=== PATIENT | female | born 1975 ===

== ENCOUNTER → 2020-01-06 09:37 | Outpatient (BNVA) | payer MEDICAID, SELFPAY | PROVIDERS: PCP Nurse Practitioner Family; Referring Provider Nurse Practitioner Family; Visit Provider Dietitian, Registered | DX: Z76.89 Persons encountering health services in other specified circumstances (principal) ==

== ENCOUNTER → 2020-04-25 07:44 | Outpatient (BNVA) | payer MEDICAID, SELFPAY | PROVIDERS: PCP Nurse Practitioner Family; Visit Provider Dietitian, Registered ==

== ENCOUNTER → 2020-10-19 08:19 | Outpatient (BNVA) | payer MEDICAID, SELFPAY | PROVIDERS: PCP Nurse Practitioner Family; Visit Provider Dietitian, Registered | DX: E66.9 Obesity, unspecified (principal); Z68.25 Body mass index [BMI] 25.0-25.9, adult | CPT/HCPCS: 97803 ==

== ENCOUNTER → 2020-12-13 14:38 | Outpatient (BNVA) | payer MEDICAID, SELFPAY | PROVIDERS: PCP Nurse Practitioner Family; Visit Provider Physician Assistant Surgical | DX: Z98.84 Bariatric surgery status (principal) | CPT/HCPCS: 99212 ==

== ENCOUNTER 2021-03-22 09:09 | Outpatient (REF) | payer MEDICAID, SELFPAY ==
[2021-03-22 10:15] LABS: COVID-19 Test Positive (Negative); IDNOW Serial# 16C4AD1C
== END 2021-03-22 09:10 | disposition home or self-care (01) ==
LOC: HO.LAB 09:09
PROVIDERS: Visit Provider Internal Medicine
DX: Z20.822 Contact with and (suspected) exposure to COVID-19 (principal)
CPT/HCPCS: 36415; 87635; C9803

== ENCOUNTER → 2021-10-31 15:06 | Outpatient (BNV) | payer MEDICAID, SELFPAY | PROVIDERS: PCP Nurse Practitioner; Visit Provider Internal Medicine | DX: D50.9 Iron deficiency anemia, unspecified (principal); N92.0 Excessive and frequent menstruation with regular cycle; Z90.3 Acquired absence of stomach [part of]; Z98.84 Bariatric surgery status | CPT/HCPCS: 99204; 99213; 99214 ==

== ENCOUNTER 2021-11-12 08:04 | Outpatient (REF) | payer MEDICAID, SELFPAY | END 2021-11-12 08:05 | disposition home or self-care (01) | LOC: HO.MDS 08:04 | PROVIDERS: PCP Nurse Practitioner; Visit Provider Internal Medicine | DX: D50.9 Iron deficiency anemia, unspecified (principal) | CPT/HCPCS: 96365; J1756 ==

== ENCOUNTER 2021-11-20 14:14 | Outpatient (REF) | payer MEDICAID, SELFPAY | END 2021-11-20 14:15 | disposition home or self-care (01) | LOC: HO.MDS 14:14 | PROVIDERS: Visit Provider Internal Medicine | DX: D50.9 Iron deficiency anemia, unspecified (principal) | CPT/HCPCS: 96365; J1756 ==

== ENCOUNTER 2021-11-27 14:29 | Outpatient (REF) | payer MEDICAID, SELFPAY | END 2021-11-27 14:30 | disposition home or self-care (01) | LOC: HO.MDS 14:29 | PROVIDERS: Visit Provider Internal Medicine | DX: D50.9 Iron deficiency anemia, unspecified (principal) | CPT/HCPCS: 96365; J1756 ==

== ENCOUNTER 2021-12-04 13:07 | Outpatient (REF) | payer MEDICAID, SELFPAY | END 2021-12-04 13:08 | disposition home or self-care (01) | LOC: HO.MDS 13:07 | PROVIDERS: Visit Provider Internal Medicine | DX: D50.9 Iron deficiency anemia, unspecified (principal) | CPT/HCPCS: 96365; J1756 ==

== ENCOUNTER 2021-12-17 13:05 | Outpatient (REF) | payer MEDICAID, SELFPAY | END 2021-12-17 13:06 | disposition home or self-care (01) | LOC: HO.MDS 13:05 | PROVIDERS: Visit Provider Internal Medicine | DX: D50.9 Iron deficiency anemia, unspecified (principal) | CPT/HCPCS: 96365; J1756 ==

== ENCOUNTER → 2021-12-18 13:01 | Outpatient (BNVA) | payer MEDICAID, SELFPAY | PROVIDERS: PCP Nurse Practitioner; Referring Provider Nurse Practitioner; Visit Provider Internal Medicine | DX: R07.2 Precordial pain (principal); Z82.49 Family history of ischemic heart disease and other diseases of the circulatory system | CPT/HCPCS: 93005; 99202 ==

== ENCOUNTER → 2022-01-29 12:58 | Outpatient (REF) | payer MEDICAID, SELFPAY ==
--- NOTE | 2022-01-29 13:05 | CA_ITS ---
Transthoracic Echocardiogram Patient (Last, First, Middle): Corina Abrams, Gender: Female Date of : 1975 Age: 46 Procedure Date: 01/29/2022 Procedure Type: Transthoracic Echocardiogram Location: OP Height: 157.48 cm Weight: 65.77 kg BSA: 1.67 m2 Heart Rate: bpm BP: 95 / 70 mmHg Jumpbasting Canvas Baster: TO Referring MD: Weston Mcdaniels MD Public Space Attendant: Gerardo Adame MD Symptoms: R07.2 - Precordial pain Study Quality: Adequate ECG Rhythm: Sinus Conclusions: - Essentially normal study Findings Left Ventricle Normal left ventricular size, thickness, and systolic function. The visually estimated ejection fraction is between 55-60%. Diastolic function is normal for age. Right Ventricle Normal right ventricular cavity size and systolic function. Atria Both atria are normal in size. Interatrial shunt cannot be excluded. Aortic Valve Normal aortic valve structure and function. There is no aortic valve stenosis. There is no aortic valve regurgitation. Mitral Valve Normal mitral valve structure and function. There is trace mitral valve regurgitation. There is no mitral valve stenosis. Pulmonic Valve The pulmonic valve is likely normal. There is trace pulmonic valve regurgitation. Tricuspid Valve Normal tricuspid valve structure. There is trace tricuspid valve regurgitation. The right ventricular systolic pressure is normal. The right ventricular systolic pressure is 16 mmHg. Normal right atrial pressure. There is no evidence of pulmonary hypertension. Great Vessels All visible segments of the aorta are normal in size. The pulmonary artery was not well visualized. Venous The inferior vena cava is normal in size and collapses greater than 50% with inspiration. Pericardium/Pleural There is no evidence of pericardial effusion. Prior Study Comparison No significant change compared to prior study dated: 01/15/2017. Measurements 2D Linear Measurements IVSd: 0.78 0.6-0.9/0.6-1.0 cm LVIDd: 5.00 3.9-5.3/4.2-5.9 cm LVIDd Index: 2.99 2.4-3.2/2.2-3.1 cm/m2 LVIDs: 3.14 2.0-3.6 cm LVPWd: 0.71 0.7-1.1 cm LA Diam: 3.00 2.7-3.8/3.0-4.0 cm LAIDs Index: 1.80 1.5-2.3 cm/m2 LV Mass: 154.69 67-162/88-224 g LV Mass Index: 92.63 43-95/49-115 g/m2 LVOT Diam: 2.00 3.0+(-)1.3 cm 2D Systolic Function EF 4C: 56.90 >55% EF 2C: 58.00 >55% Mitral Valve MV Pk E: 0.48 MV PK A: 0.45 MV Decel Time: 201.00 E/A: 1.10 E'Lateral: 12.70 E'Medial: 9.36 E/E' Med: 5.10 E/E' Lat: 3.80 PHT: 59.00 MVA PHT: 3.73 Decel Power: 2.39 Aortic Valve AoV Pk Quang: 1.19 AoV Mn Quang: 0.91 AoV VTI: 0.25 AoV Pk Grad: 6.00 Aov Mn Grad: 4.00 LEXIE Cont.VTI: 2.11 LVOT LVOT Pk Quang: 0.89 LVOT Mn Quang: 0.58 LVOT VTI: 0.17 LVOT Pk Grad: 3.00 LVOT Mn Grad: 2.00 LVOT Diam: 2.00 LVOT Area: 3.14 Diastolic Function MV Pk E: 0.48 MV Pk A: 0.45 E/A: 1.10 E'Medial: 9.36 E/E' Med: 5.10 E' Laterial: 12.70 E/E' Lat: 3.80 Right Ventricle TAPSE (mm): 23.80 TVS' Quang: 11.10 Tricuspid Valve TR Pk Quang: 1.81 TR Pk Grad: 13.00 RA Press: 3.00 RVSP: 16.00 Great Vessels Aorta Sinus of Valsalva: 3.13 2.0-3.5 cm Ao Asc: 2.80 2.1-3.4 cm Updated in Other Vendor System with Status of Final Gerardo Adame MD electronically signed on 01/30/2022 3:47:49 PM with status of Final
== END ==
LOC: HO.CARD 12:58
PROVIDERS: Visit Provider Internal Medicine
DX: R07.2 Precordial pain (principal)
CPT/HCPCS: 93306

== ENCOUNTER → 2022-02-04 10:37 | Outpatient (REF) | payer MEDICAID, SELFPAY ==
--- NOTE | 2022-02-04 10:42 | CA_ITS ---
Acquisition Time: 2022-02-04 10:40:19 Total Exercise Time: 00:09:47 Test Indications: Dyspnea Medications: GABAPENTIN IRON Protocol: [place] Max HR: 169 BPM 97% of Pred: 174 BPM Max BP: 124/070 mmHG Max Work Load: 11.3 METS Exercise stress test with exercise 9 min 47 sec of [place] protocol, achieving 97% MPHR, without anginal symptoms, without arrythma, with normotensive response to exercise, without EKG changes meeting criteria for ischemia at peak, with T wave inversions inferior, V4-V6 in recovery. Test reviewed with Dr Adame. Referred By: Weston Mcdaniels Overread By: DICKSON RUTLEDGE
== END ==
LOC: HO.CARD 10:37
PROVIDERS: Visit Provider Internal Medicine
DX: R07.2 Precordial pain (principal)
CPT/HCPCS: 93017

== ENCOUNTER → 2022-04-25 13:34 | Outpatient (BNVA) | payer MEDICAID, SELFPAY | PROVIDERS: PCP Nurse Practitioner; Referring Provider Nurse Practitioner; Visit Provider Nurse Practitioner Family | DX: R07.2 Precordial pain (principal); R00.2 Palpitations; Z82.49 Family history of ischemic heart disease and other diseases of the circulatory system | CPT/HCPCS: 99212 ==

== ENCOUNTER → 2022-05-21 11:07 | Outpatient (REF) | payer MEDICAID, SELFPAY ==
--- NOTE | 2022-05-21 11:09 | HM_ITS ---
conclusion: 1. Patient was monitored for total period of 2 days 2. Baseline was normal sinus rhythm with average heart rate of 88 beats per minute 3. No significant pauses or bradycardia noted 4. Very rare PACs noted 5. No patient reported symptoms MTDD
--- NOTE | 2022-05-21 11:09 | CA_ITS ---
Acquisition Time: 2022-05-21 11:22:28 Total Exercise Time: 00:09:35 Test Indications: CP Medications: SEE CHART Protocol: [place] Max HR: 176 BPM 101% of Pred: 173 BPM Max BP: 110/070 mmHG Max Work Load: 11.0 METS Exercise stress ECHO using [place] protocol, total of 9 min 35 sec. METS 11.00 and TAPHR up to. 101%. Patient tolerated well, denies any SOB or CP. EKG witthout any arrhythmias and ischemic changes. ECHO images done at peak exercise, definity IV contrast used. Hypotensive response to exercise, asymptomatic. Test reviewed with Dr. Adame. Referred By: Evie Johnston Overread By: Erika Hicks NP
== END ==
LOC: HO.CARD 11:07
PROVIDERS: PCP Nurse Practitioner; Visit Provider Nurse Practitioner Family
DX: R07.2 Precordial pain (principal); R00.2 Palpitations
CPT/HCPCS: 93242; 93350; Q9957

== ENCOUNTER 2022-12-10 12:43 | Outpatient (REF) | payer OTHER, SELFPAY ==
[2022-12-10 16:24] LABS: Hematocrit 42.8 % (37.0-47.0); Hemoglobin 14.1 g/dl (12.0-16.0); Mean Corpuscular HGB Conc 32.9 g/dl (31.0-35.0); Mean Corpuscular Volume 94.1 fL (80.0-98.0); Mean Platelet Volume 12.1 fL (9.4-12.3); Platelet Count 253 X10*3/uL (160-400); Red Blood Count 4.55 X10*6/uL (4.20-5.50); Red Cell Distribution Width 13.2 % (11.0-16.0); White Blood Count 5.7 X10*3/uL (4.8-10.8)
[2022-12-10 17:10] LABS: Ferritin 16 ng/mL (10-250)
[2022-12-10 17:14] LABS: HCG Quantitative < 2 mIU/mL; TSH reflex Free T4 1.34 uIU/mL (0.32-4.0)
== END 2022-12-10 12:44 | disposition home or self-care (01) ==
LOC: HO.HHCL 12:43
PROVIDERS: Internal Medicine; Visit Provider Registered Nurse
DX: E61.1 Iron deficiency (principal); N93.9 Abnormal uterine and vaginal bleeding, unspecified
CPT/HCPCS: 36415; 82728; 84443; 84702; 85027

== ENCOUNTER 2023-01-16 15:30 | Outpatient (AMB) | payer MEDICAID, SELFPAY ==
--- NOTE | 2023-01-16 15:38 | A.OFFVIS_ITS ---
Intake VS Expanded 01/16/23 15:48 Height 5 ft 3 in Weight 155 lb BMI 27.5 Intake Visit Reasons: VIDEO POM DOS LSG 12/2017 Allergies No Known Allergies [No Known Allergies*] Allergy (Verified 04/25/22 13:36) Medication List - Last Reconciled 01/16/23 by Violet Oconnor PA-C albuterol sulfate 1 vial inhalation Q4H PRN gabapentin 400 mg PO BEDTIME HPI HPI Comments History of Present Illness Details Pt is now 5 years s/p LSG. [employer] weight of , last appt Nov 2020 at 3 years post op. She stats she has gained 20 lbs and stopped exericise. Now has epigastric after eating. Wakes up at 6 am 7am - coffee 1 cup with 5 equal and whol e milk 10:30 am -chicken evans wrap or half tur ramos sandwich a with multigrain bread - over 5 minutes Water or OJ or cranberry juice 3pm - not healthy snacks 6pm - chicken and rice, vegetables After dinner - eats cereal before bed Post op complications: none FILIBERTO: resolved DM never HTN:never Hyperlipidemia: never GERD: 2--3, when eats too fast Satisfaction with present condition - Not satisfied [facility] Medical History (Updated 01/16/23 @ 15:48 by Violet Oconnor PA-C) Arthritis History of asthma Surgical History (Updated 01/16/23 @ 15:48 by Violet Oconnor PA-C) H/O abdominoplasty Family History Mother History of hypertension Arthritis Glaucoma Father Heart problem History of hypertension Brother Heart problem History of hypertension Sister History of hypertension Brother No problems noted. Brother No problems noted. Brother No problems noted. Brother No problems noted. Sister No problems noted. Sister No problems noted. Sister No problems noted. Social History Household Members: Spouse and Children Housing: House Alcohol intake: current Alcohol intake frequency: holidays/special occasions only Patient Tobacco Use Status: Never used Tobacco service: No Current occupational status: employed Physical Exam GI Inspection: Yes incision (well helaed) Palpation (GI): no hernias and no masses Assessment & Plan Assessment & Plan (1) S/P laparoscopic sleeve gastrectomy: Code(s): Z98.84 - Bariatric surgery status Plan: 5 years post op. Has gained about 10 lbs and knows that it is is becasue of her stopping exercise and eating candies and eating too fast. 10:30 - stop juices, half sandwich or wrap in 20 -30 minutes 3pm -apple with 2 tbl PB, or a sting cheese or a hb egg 7pm- 3 oz vegetables and 3-4 protien, 1/4 c carbs Restart exercise Gets post op labs done Follow up in March 2023 with me I spent 30 minutes in total speaking with the patient via video conference counseling , reviewing records and charting in patients chart. . (2) Epigastric pain: Code(s): R10.13 - Epigastric pain Orders: Orders IRON PROFILE Today R10.13 - Epigastric pain, Z98.84 - Bariatric surgery status Vitamin B12 and Folate Today R10.13 - Epigastric pain, Z98.84 - Bariatric surgery status Comprehensive Met. Panel Today R10.13 - Epigastric pain, Z98.84 - Bariatric surgery status Vitamin A Today R10.13 - Epigastric pain, Z98.84 - Bariatric surgery status Vitamin D 25-OH Total Today R10.13 - Epigastric pain, Z98.84 - Bariatric surgery status Hemoglobin A1c Today R10.13 - Epigastric pain, Z98.84 - Bariatric surgery status Insulin Today R10.13 - Epigastric pain, Z98.84 - Bariatric surgery status Lipid Panel Today R10.13 - Epigastric pain, Z98.84 - Bariatric surgery status Complete Blood Count Auto Diff Today R10.13 - Epigastric pain, Z98.84 - Bariatric surgery status Zinc Today R10.13 - Epigastric pain, Z98.84 - Bariatric surgery status Vitamin B1 Today R10.13 - Epigastric pain, Z98.84 - Bariatric surgery status C Reactive Protein Today R10.13 - Epigastric pain, Z98.84 - Bariatric surgery status Ferritin Today R10.13 - Epigastric pain, Z98.84 - Bariatric surgery status PTHI Today R10.13 - Epigastric pain, Z98.84 - Bariatric surgery status TSH reflex Free T4 Today R10.13 - Epigastric pain, Z98.84 - Bariatric surgery status Coding Level of Care Code Tele Est Pt Level 4 (75698) Diagnoses S/P laparoscopic sleeve gastrectomy Z98.84 Epigastric pain R10.13
[2023-01-16 15:48] VITALS: BMI 27.5
== END 2023-01-16 16:01 | disposition home or self-care (01) ==
LOC: HO.HBS 15:46
PROVIDERS: PCP Registered Nurse; Visit Provider Physician Assistant
DX: E66.9 Obesity, unspecified (principal); Z68.27 Body mass index [BMI] 27.0-27.9, adult; Z90.3 Acquired absence of stomach [part of]; Z98.84 Bariatric surgery status
CPT/HCPCS: 99214

== ENCOUNTER → 2023-01-16 15:30 | Outpatient (BNVA) | payer MEDICAID, SELFPAY | PROVIDERS: PCP Registered Nurse; Visit Provider Physician Assistant | DX: R10.13 Epigastric pain (principal); Z98.84 Bariatric surgery status | CPT/HCPCS: 99212 ==

== ENCOUNTER 2023-02-28 16:04 | Outpatient (REF) | payer MEDICAID, SELFPAY ==
--- NOTE | ~2023-02-28 | XR_ITS ---
EXAMINATION: XR HIP, RIGHT CLINICAL INFORMATION: Pain COMPARISON: None available. TECHNIQUE: Two views of the right hip. FINDINGS: No fracture. Alignment is anatomic. Hip joint space is maintained. Soft tissues are unremarkable. XR/XR hip RT min 2V IMPRESSION: Normal right hip.
== END 2023-02-28 16:05 | disposition home or self-care (01) ==
LOC: HO.HHCX 16:04
PROVIDERS: Visit Provider Nurse Practitioner
DX: M25.551 Pain in right hip (principal)
CPT/HCPCS: 73502

== ENCOUNTER 2023-04-14 15:00 | Outpatient (AMB) | payer MEDICAID, SELFPAY ==
--- NOTE | 2023-04-14 15:00 | A.OFFVIS_ITS ---
Intake Intake Visit Reasons: TV POM LSG 12/2017 Allergies No Known Allergies [No Known Allergies*] Allergy (Verified 04/25/22 13:36) HPI HPI Comments History of Present Illness Details Pt is now 5 years s/p LSG. She had lapse in care from Nov 2020 until Dec 2022 when she had gained 20 lbs and stopped exercising. She complained of epigastric pain after eating and we started a new meal and exercise regiment. Since out last appt she had not been adhering to the plan we created. She said her symptoms are the same. Wakes at 5am 5:30 coffee with whole milk and 3 equal 7:30 am - 2 boiled eggs over 30 minutes, - has epigastric pain 12pm - 8 oz salad a, banana peppers and dressing,3 deli slices of turkey 5:30pm - 4 oz baked salmon and 8 oz vege tables 8pm - Special K cereal 10 pm bed. Did not start exercise yet Did not get post op labs done [facility] Medical History (Updated 01/16/23 @ 15:48 by Violet Oconnor PA-C) Arthritis History of asthma Surgical History (Updated 01/16/23 @ 15:48 by Violet Oconnor PA-C) H/O abdominoplasty Family History Mother History of hypertension Arthritis Glaucoma Father Heart problem History of hypertension Brother Heart problem History of hypertension Sister History of hypertension Brother No problems noted. Brother No problems noted. Brother No problems noted. Brother No problems noted. Sister No problems noted. Sister No problems noted. Sister No problems noted. Social History Household Members: Spouse and Children Housing: House Alcohol intake: current Alcohol intake frequency: holidays/special occasions only Patient Tobacco Use Status: Never used Tobacco service: No Current occupational status: employed Assessment & Plan Assessment & Plan (1) Epigastric pain: Code(s): R10.13 - Epigastric pain Plan: Persistent epigastric pain - did not make any of the changes we spoke about. No coffee in morning. No juice. 6am - Celebrate 4:1 shake with 8 oz water 12 pm - 2 boiled eggs, 1/4 raw vegetables or fruit 5pm - 4 oz (8 forks) protein , 4 oz (8 forks)vegetables - 8pm- Celbrate 4:1 shake Treadmill at home - start speed 2.8, incline 2-6 (3minutes) - 300 calories, 4 d/week this week and 5d /week. Will get her labs drawn this week. Text me with progress, worsening pain or any questions. Next appt 1 month with me. Patient is not considered stable at this time. I spent 22minutes in total speaking with the patient via video conference counseling , reviewing records and charting in patients chart. . (2) S/P laparoscopic sleeve gastrectomy: Code(s): Z98.84 - Bariatric surgery status Plan see above Coding Level of Care Code Tele Est Pt Level 3 (22976) Diagnoses Epigastric pain R10.13 S/P laparoscopic sleeve gastrectomy Z98.84
== END 2023-04-14 15:22 | disposition home or self-care (01) ==
LOC: HO.HBS 15:21
PROVIDERS: PCP Registered Nurse; Visit Provider Physician Assistant
DX: R10.13 Epigastric pain (principal); Z90.3 Acquired absence of stomach [part of]; Z98.84 Bariatric surgery status
CPT/HCPCS: 99213

== ENCOUNTER → 2023-04-14 15:00 | Outpatient (BNVA) | payer MEDICAID, SELFPAY | PROVIDERS: PCP Registered Nurse; Visit Provider Physician Assistant | DX: Z98.84 Bariatric surgery status (principal); R10.13 Epigastric pain ==

== ENCOUNTER 2023-09-12 14:06 | Outpatient (REF) | payer MEDICAID, SELFPAY ==
--- NOTE | ~2023-09-12 | XR_ITS ---
EXAMINATION: XR LUMBOSACRAL SPINE CLINICAL INFORMATION: Chronic low back pain without sciatica. Patient states 2-3 years of low back pain worsening for the last 3-4 months. COMPARISON: 07/06/2014 TECHNIQUE: Three views of the lumbosacral spine. FINDINGS: Dextroscoliosis of the lumbar spine. Postsurgical changes with clips in the left upper quadrant. Small pelvic calcifications are likely vascular. Bones are demineralized. Facet arthritis in the lower lumbar spine. Mild multilevel lumbar spondylosis with loss of disc space height at L3-L4. XR/XR lumbar spine 2-3V IMPRESSION: Mild multilevel lumbar spondylosis with loss of disc space height at L3-L4. This study was presented today October 01, 2023 for interpretation. Stat results provided at this time as requested by referring provider.
== END 2023-09-12 14:07 | disposition home or self-care (01) ==
LOC: HO.HHCX 14:06
PROVIDERS: Visit Provider Student in an Organized Health Care Education/Training Program
DX: M54.50 Low back pain, unspecified (principal); G89.29 Other chronic pain
CPT/HCPCS: 72100

== ENCOUNTER 2023-09-12 14:24 | Outpatient (REF) | payer MEDICAID, SELFPAY ==
[2023-09-12 16:41] LABS: Hemoglobin 13.2 g/dl (12.0-16.0); Mean Corpuscular Volume 90.9 fL (80.0-98.0); Mean Platelet Volume 11.3 fL (9.4-12.3); Platelet Count 244 X10*3/uL (160-400); Red Cell Distribution Width 16.3 % (11.0-16.0); White Blood Count 7.5 X10*3/uL (4.8-10.8)
[2023-09-12 16:50] LABS: Alanine Aminotransferase 13 U/L (0-31); Albumin Level 4.1 g/dL (3.5-5.0); Alkaline Phosphatase 52 U/L (39-117); Anion Gap 11 (12-20); Aspartate Amino Transferase 18 U/L (5-31); Bilirubin Total 0.3 mg/dL (0.0-1.0); Blood Urea Nitrogen 17 mg/dL (9-16); Calcium 9.3 mg/dL (8.4-10.2); Carbon Dioxide 26 mmol/L (22-29); Chloride 106 mmol/L (96-108); Estimated Glomerular Filt Rate > 60; Glucose Random 81 mg/dL (60-115); Potassium 4.1 mmol/L (3.3-5.1); Sodium 139 mmol/L (135-145); Total Protein 7.2 g/dL (6.5-8.0)
[2023-09-12 16:55] LABS: Estimated Average Glucose 97 mg/dL
[2023-09-12 17:09] LABS: TSH reflex Free T4 1.07 uIU/mL (0.32-4.0)
== END 2023-09-12 14:25 | disposition home or self-care (01) ==
LOC: HO.HHCL 14:24
PROVIDERS: Visit Provider Student in an Organized Health Care Education/Training Program
DX: R42 Dizziness and giddiness (principal); M54.50 Low back pain, unspecified; G89.29 Other chronic pain
CPT/HCPCS: 36415; 72100; 80053; 83036; 84443; 85027

== ENCOUNTER 2023-11-11 14:56 | Outpatient (RCR) | payer MEDICAID, SELFPAY ==
--- NOTE | 2023-11-11 16:03 | MHC.PT.EP ---
[facility] [place] Office [place] Office [place] Office [address] Nazanin Cote [address] [phone] F: [phone] F: [phone] F: [phone] F: [phone] Physical Therapy Plan of Care Date of Evaluation: 11/11/23 Date of Surgery: N/A Diagnosis: MD script: chronic low back pain without sciatica, unspecified back pain laterality (RL) PT Diagnosis: lumbar radiculopathy Assessment: pt is a 48 y/o female presenting to physical therapy w/ referring diagnosis of chronic low back pain without sciatica, unspecified back pain laterality. Signs and symptoms are consistent w/ R lumbar radiculopathy. Unsure if it is a true disc issue or more postural as she does have xray (+) for lumbar dextroscoliosis but observation and palpation of spine reveal excessive lumbar lordosis. Impairments include pain, decreased range of motion, decreased strength, impaired functional mobility, impaired postural awareness, and altered ambulation mechanics. pt is a good candidate for skilled PT due to age, potential remediation of impairments, typical disease/condition progression and prognosis, comorbidities, and motivation. pt would benefit from skilled PT intervention to provide a tailored strengthening and stretching exercise program, functional training, gait training, postural re-training, neuromuscular re-education, modalities as needed for pain, equipment safety demonstration. Frequency and Duration: The patient will be seen 2x/wk for 5 wks Short Term Goals: pt will be I w/ HEP to promote self-management of condition. pt will demo proper sitting posture w/ lumbar roll to promote neutral spine w/ seated ADLs. Intermediate Goals: pt will report a statistically significant improvement in self-reported outcome measure, Marlene, to promote return to PLOF. pt will ambulate x1000' w/ <2/10 R radicular symptoms w/ LRAD to promote return to community ambulation (grocery store, appts). Treatment Plan: Modalities to reduce pain, spasms and effusion. Manual therapy to restore motion and function. Therapeutic exercise to improve strength and flexibility. Neuromuscular re-education for posture and balance. Therapeutic activities to return to functional activities of daily living. Electronically signed by: Kailee Rowland PT, DPT Please sign and return to therapist. Thank you for your referral.
--- NOTE | 2023-11-19 14:23 | MHC.PT.DC ---
[facility] [place] Office [place] Office [place] Office [address] Nazanin Cote [address] [phone] F: [phone] F: [phone] F: [phone] F: [phone] Physical Therapy Discharge Report Diagnosis: MD script: chronic low back pain without sciatica, unspecified back pain laterality (RL) PT Diagnosis: lumbar radiculopathy Date of Surgery: N/A Date of Evaluation: 11/11/23 Date of Discharge: 11/19/23 Treatments to Date: 1 Cancellations to Date: 0 No Shows to Date: 2 Discharge Status: Discharge Summary: The patient has no showed two consecutive appointments. Per [facility] Therapy attendance policy she is being discharged for non-compliance. I suspected her symptoms were a combination of excessive lumbar lordosis, scoliosis, and lumbar radiculopathy. We spent time discussing her posture and some strategies to promote neutral spine with daily tasks. Electronically signed by: Kailee Rowland PT, DPT Please sign and return to therapist. Thank you for your referral.
== END 2023-11-19 14:23 | disposition home or self-care (01) ==
LOC: HO.PT 14:56
PROVIDERS: PCP Internal Medicine; Visit Provider Internal Medicine
DX: M54.50 Low back pain, unspecified (principal); G89.29 Other chronic pain
CPT/HCPCS: 97110; 97161

== ENCOUNTER 2023-11-26 11:25 | Outpatient (REF) | payer MEDICAID, SELFPAY | END 2023-11-26 11:26 | disposition home or self-care (01) | LOC: HO.HHCLNP 11:25 | PROVIDERS: Visit Provider Internal Medicine | DX: Z13.89 Encounter for screening for other disorder (principal) ==

== ENCOUNTER 2023-11-27 10:27 | Outpatient (REF) | payer MEDICAID, SELFPAY ==
--- NOTE | ~2023-11-27 | US_ITS ---
EXAMINATION: US ABDOMEN COMPLETE CLINICAL INFORMATION: Right-sided pain. Flank and right lower quadrant pain x6 months. COMPARISON: X-ray abdomen 12/26/2017. Ultrasound abdomen complete with liver elastography 04/17/2017. Ultrasound abdomen complete 01/19/2013. TECHNIQUE: Real-time imaging of the abdominal viscera. FINDINGS: PANCREAS: The pancreas appears unremarkable, without masses or ductal dilatation, with the exception of the tail which is obscured by bowel gas. ABDOMINAL AORTA: Atherosclerotic changes are present in the aorta with plaque. The proximal, mid, and distal segments are normal in caliber. INFERIOR VENA CAVA: Visualized portions are normal. LIVER: The liver is normal in size. The liver contour is normal. There is diffuse increased liver parenchymal echogenicity, consistent with hepatic steatosis. No focal hepatic lesion. There is no intrahepatic biliary duct dilatation seen. GALLBLADDER: Normal. The gallbladder is physiologically distended without evidence of stones, sludge, polyps, wall thickening or pericholecystic fluid. COMMON BILE DUCT: Normal in caliber measuring 0.4 cm in diameter. RIGHT KIDNEY: No hydronephrosis or renal calculi. The kidney measures 9.4 cm in maximum dimension. No renal masses. LEFT KIDNEY: No hydronephrosis. No renal calculi or focal parenchymal lesions. The kidney measures 10.3 cm in maximum dimension. No renal masses. SPLEEN: Normal. The spleen measures 9.5 cm in maximum dimension. FREE FLUID: None. US/US abdomen complete IMPRESSION: Hepatic steatosis. Electronically signed by: Donnell Rivera MD 12/03/2023 03:35 PM EDT
== END 2023-11-27 10:28 | disposition home or self-care (01) ==
LOC: HO.US 10:27
PROVIDERS: PCP Internal Medicine; Visit Provider Internal Medicine
DX: R10.31 Right lower quadrant pain (principal); G89.29 Other chronic pain
CPT/HCPCS: 76700

== ENCOUNTER 2023-12-05 15:16 | Outpatient (REF) | payer MEDICAID, SELFPAY ==
--- NOTE | ~2023-12-05 | MM_ITS ---
EXAMINATION: MM SCREENING DIGITAL BREAST TOMOSYNTHESIS, BILATERAL CLINICAL INFORMATION: Screening. Asymptomatic. COMPARISON: Mammography: Comparison is made with available priors TECHNIQUE: Digital breast mammography with tomosynthesis is performed in both the craniocaudal and mediolateral oblique views along with computer-aided detection (CAD). FINDINGS: There are scattered areas of fibroglandular density (ACR BI-RADS breast composition Category b). There are no significant masses, abnormal calcifications, or other abnormalities. MM/MM tomosynthesis screening BI IMPRESSION: No mammographic evidence of malignancy. ASSESSMENT: BI-RADS BI-RADS 1 - Negative RECOMMENDATION: Routine annual mammography screening. 1 year F/U This examination should not preclude the clinical evaluation of a suspicious palpable abnormality. This patient's information was entered into a reminder system with a target due date for their next mammogram. Electronically signed by: Mini Yap DO 12/19/2023 08:55 AM EDT
== END 2023-12-05 15:17 | disposition home or self-care (01) ==
LOC: HO.MAMMO 15:16
PROVIDERS: PCP Internal Medicine; Visit Provider Internal Medicine
DX: Z12.31 Encounter for screening mammogram for malignant neoplasm of breast (principal)
CPT/HCPCS: 77063; 77067

== ENCOUNTER → 2023-12-05 15:30 | Outpatient (BNV) | payer MEDICAID, SELFPAY | PROVIDERS: PCP Internal Medicine; Visit Provider Internal Medicine | DX: Z12.31 Encounter for screening mammogram for malignant neoplasm of breast (principal) | CPT/HCPCS: 77063; 77067 ==

== ENCOUNTER 2023-12-20 01:08 | Emergency (ER) | payer MEDICAID, SELFPAY ==
[2023-12-20 01:14] VITALS: BP 108/53; PULSE 86; RESP 19; TEMP 36.2; O2SAT 97; BMI 28.3
--- NOTE | 2023-12-20 01:33 | MHC.EDTECH ---
Patient brought into triage area,labs,and urine obtained and sent to lab.
[2023-12-20 01:35] LABS: Basophils Percent Auto 0.5 % (0-2); Eosinophils Absolute Auto 0.2 X10*3/uL (0.0-0.4); Eosinophils Percent Auto 3.1 % (0-4); Hematocrit 38.3 % (37.0-47.0); Hemoglobin 13.3 g/dl (12.0-16.0); Imm Gran Abs Auto 0.02 X10*3/uL (0.00-0.03); Imm Gran Pct Auto 0.3 % (0.0-0.4); Lymphocytes Absolute Auto 2.1 X10*3/uL (1.2-4.9); Lymphocytes Percent Auto 28.6 % (20-40); MANUAL DIFF FLAG NO; Mean Corpuscular HGB Conc 34.7 g/dl (31.0-35.0); Mean Corpuscular Hemoglobin 32.4 pg (27.0-33.0); Mean Corpuscular Volume 93.4 fL (80.0-98.0); Mean Platelet Volume 10.5 fL (9.4-12.3); Monocytes Absolute Auto 0.6 X10*3/uL (0.1-1.2); Neutrophils Absolute Auto 4.4 x10*3/uL (2.0-8.3); Neutrophils Percent Auto 59.5 % (45-73); Platelet Count 233 X10*3/uL (160-400); Red Cell Distribution Width 12.1 % (11.0-16.0); White Blood Count 7.4 X10*3/uL (4.8-10.8)
[2023-12-20 01:42] LABS: Appearance Urine Clear; Color Urine Yellow; Glucose Urine UA Negative (Negative); Leukocyte Esterase Urine Negative (Negative); Nitrite Urine Negative (Negative); PH 5.5 (5.0-9.0); Specific Gravity - Urine 1.025 (1.005-1.025); Urine Blood Negative (Negative); Urine Ketones Negative (Negative); Urine Protein Negative (Neg-Trace)
[2023-12-20 01:48] LABS: Alanine Aminotransferase 11 U/L (0-31); Albumin Level 3.8 g/dL (3.5-5.0); Alkaline Phosphatase 60 U/L (39-117); Anion Gap 10 (12-20); Aspartate Amino Transferase 15 U/L (5-31); Bilirubin Direct 0.1 mg/dL (0.0-0.5); Bilirubin Total 0.4 mg/dL (0.0-1.0); Blood Urea Nitrogen 22 mg/dL (9-16); Calcium 9.4 mg/dL (8.4-10.2); Carbon Dioxide 22 mmol/L (22-29); Chloride 112 mmol/L (96-108); Creatinine Clr Calc Pharmacy 74.6; Estimated Glomerular Filt Rate > 60; Glucose Random 105 mg/dL (60-115); Potassium 3.8 mmol/L (3.3-5.1); Sodium 140 mmol/L (135-145); Total Protein 6.8 g/dL (6.5-8.0)
--- NOTE | 2023-12-20 01:58 | PC.NURSE ---
pt from home, a&ox4, respirations even and unlabored. pt reporting 2 days ago she sat on toilet to pee and she farted and blood came out of her rectum. pt reports today, this happened again but more blood came out. pt reporting mild abdominal pain and nausea. pt denies hx of this but reports 5 years ago she had weight loss surgery. pt denies cp/sob.
--- NOTE | 2023-12-20 02:54 | ED.ABDPAIN ---
HPI - Abdominal Pain General Chief Complaint: Abdominal Pain Stated Complaint: abd pain/blood in stool Time Seen by Provider: 12/20/23 02:53 Source: patient Mode of arrival: ambulatory Limitations: no limitations History of Present Illness ED Provider: Dr. Mcleod HPI narrative: Patient is 48yo female with history of gastric sleeve 8 years ago, now with months of abdominal bloating, noticed the last 2 mornings that when she had flatulance she passed some rectal blood. Her stools however have been brown well formed. she has a history of hemorrhoids. Related Data Home Medications ?Medication ?Instructions ?Recorded ?Confirmed gabapentin 400 mg capsule 400 mg PO BEDTIME 12/18/21 07/16/23 albuterol sulfate 2.5 mg/3 mL 1 vial inhalation Q4H PRN 02/01/22 07/16/23 (0.083 %) solution for nebulization Shortness Of Breath Previous Rx's ?Medication ?Instructions ?Recorded ferrous sulfate 325 mg (65 mg 325 mg PO BID #60 tabs 10/17/23 iron) tablet Allergies Allergy/AdvReac Type Severity Reaction Status Date / Time No Known Allergies Allergy Verified 12/20/23 01:17 [No Known Allergies*] Review of Systems Review of Systems Yes all other systems are reviewed and are negative Denies Sensory deficit (Neuro) PMFSH Past Medical History Medical History Arthritis History of asthma Surgical History H/O abdominoplasty Family History Family History Mother History of hypertension Arthritis Glaucoma Father Heart problem History of hypertension Brother Heart problem History of hypertension Sister History of hypertension Brother No problems noted. Brother No problems noted. Brother No problems noted. Brother No problems noted. Sister No problems noted. Sister No problems noted. Sister No problems noted. Social History Social History Household Members: Spouse and Children Housing: House Alcohol intake: current Alcohol intake frequency: holidays/special occasions only Patient Tobacco Use Status: Never used Tobacco Smoked in Last 30 Days: No Use of substances other than those prescribed or required for medical reasons: No Advance Directives: No Advance Directives Information Provided: Yes Do you have a plan to hurt others: No Plan Patient : No service: No Current occupational status: employed Physical Exam ED Vital Signs: Vital Signs - 24 hr 12/20/23 01:14 Temperature 97.2 F Pulse Rate 86 Respiratory Rate 19 Blood Pressure 108/53 L Pulse Oximetry 97 Oxygen Delivery Method Room Air BMI result Body Mass Index 28.3 Const General: healthy appearing Nutritional Appearance: average body habitus Orientation/consciousness: oriented to person and patient oriented x3 Limitations: no limitations HENMT Head: Yes normal to inspection Ears: external ears normal General nose exam: Normal external nose present Mouth: Normal oral and palatal mucosa present and oropharynx normal Throat: Yes posterior oropharynx normal Eyes General: appearance normal, both eyes and all related structures Neck Neck: Yes normal visual inspection Chest Chest palpation & inspection: normal inspection of the chest Resp Auscultation: clear to auscultation bilaterally Cardio Jugular venous distension: no JVD Rate: regular rate Rhythm: regular rhythm Heart sounds: S1 normal heart sound present and S2 normal heart sound present GI Other: soft nonfocal abdomen Inspection: Yes normal to inspection Palpation (GI): Soft to palpation, nontender and No hepatosplenomegaly present Auscultation: normal bowel sounds Other: hemorrhoids, there is a tender rectal fissure, stool is brown heme negative General: Yes no CVA tenderness Back/Spine/Pelvis Back: no CVA tenderness Skin General skin exam: no rashes or lesions noted Neuro General: oriented to person and patient oriented x3 Cranial nerves: Yes CN's II-XII intact bilaterally Motor exam (neuro): 5/5 motor strength present throughout Sensory Exam: No Sensory deficit (Neuro) Extrem General: Yes normal to inspection Psych Appearance: grossly normal Course Reevaluation(s) Reevaluation #1: Patient with rectal fissure, no evidence of GI bleeding, soft abdomen Time: 04:02 Medical Decision Making Differential Diagnosis Differential Diagnoses: The differential diagnosis associated with the presentation includes (GI hemorrhage, diverticulosis, diverticulitis, hemorrhoidal bleed, rectal fissure) Admission/Observation Consideration of admission/observation: Escalation of care including admission/observation considered (upon arrival patient was considered for admission) Lab Data 12/20/23 01:27 12/20/23 01:27 Labs: Lab Results 12/20/23 Range/Units 01:27 WBC 7.4 (4.8-10.8) X10*3/uL RBC 4.10 L (4.20-5.50) X10*6/uL Hgb 13.3 (12.0-16.0) g/dl Hct 38.3 (37.0-47.0) % MCV 93.4 (80.0-98.0) fL MCH 32.4 (27.0-33.0) pg MCHC 34.7 (31.0-35.0) g/dl RDW 12.1 (11.0-16.0) % Plt Count 233 (160-400) X10*3/uL MPV 10.5 (9.4-12.3) fL Immature Gran % (Auto) 0.3 (0.0-0.4) % Neut % (Auto) 59.5 (45-73) % Lymph % (Auto) 28.6 (20-40) % [place] % (Auto) 8.0 (2-11) % Eos % (Auto) 3.1 (0-4) % Baso % (Auto) 0.5 (0-2) % Lymph # (Auto) 2.1 (1.2-4.9) X10*3/uL [place] # (Auto) 0.6 (0.1-1.2) X10*3/uL Eos # (Auto) 0.2 (0.0-0.4) X10*3/uL Baso # (Auto) 0.0 (0.0-0.2) X10*3/uL Abs Immat Gran (auto) 0.02 (0.00-0.03) X10*3/uL Absolute Neuts (auto) 4.4 (2.0-8.3) x10*3/uL Absolute Nucleated RBC 0.000 (0.0-0.012) X10*3/uL Nucleated RBC % (auto) 0.0 (0.0-0.2) /100WBC Sodium 140 (135-145) mmol/L Potassium 3.8 (3.3-5.1) mmol/L Chloride 112 H (96-108) mmol/L Carbon Dioxide 22 (22-29) mmol/L Anion Gap 10 L (12-20) BUN 22 H (9-16) mg/dL Creatinine 0.88 (0.5-1.4) mg/dL Estim Creat Clear Calc 74.6 Estimated GFR > 60 Random Glucose 105 (60-115) mg/dL Calcium 9.4 (8.4-10.2) mg/dL Total Bilirubin 0.4 (0.0-1.0) mg/dL Direct Bilirubin 0.1 (0.0-0.5) mg/dL AST 15 (5-31) U/L ALT 11 (0-31) U/L Alkaline Phosphatase 60 (39-117) U/L Total Protein 6.8 (6.5-8.0) g/dL Albumin 3.8 (3.5-5.0) g/dL Urine Color Yellow Urine Appearance Clear Urine pH 5.5 (5.0-9.0) Ur Specific [place] 1.025 (1.005-1.025) Urine Protein Negative (Neg-Trace) mg/dL Urine Glucose (UA) Negative (Negative) mg/dL Urine Ketones Negative (Negative) mg/dL Urine Blood Negative (Negative) Urine Nitrite Negative (Negative) Ur Leukocyte Esterase Negative (Negative) Tests considered The following testing was considered but not selected: CT of abdomen considered but abdomen is soft nontender Prescription Management I considered prescription management with: Antibiotic (no evidence of diverticulitis) Discharge Plan Discharge Clinical Impression: Rectal fissure Patient Disposition: Home, Self-Care Instructions: Rectal Bleeding (ED), Anal Fissure (ED) Prescriptions: No Action albuterol sulfate 2.5 mg /3 mL (0.083 %) solution for nebulization 1 vial inhalation Q4H PRN (Reason: Shortness Of Breath) ferrous sulfate 325 mg (65 mg iron) Tablet 325 mg PO BID Qty: 60 1RF gabapentin 400 mg capsule 400 mg PO BEDTIME Referrals: Marian Crook MD [Primary Care Provider] - 5 days Print Language: Slovak
--- NOTE | 2023-12-20 03:40 | PC.NURSE ---
this rn at bedside with preforming rectal exam, pt tolerating well.
[2023-12-20 04:11] VITALS: BP 95/43; PULSE 72; RESP 17; TEMP 36.9; O2SAT 98
[2023-12-20 04:12] VITALS: BP 95/43; PULSE 72; RESP 17; TEMP 36.9; O2SAT 98
== END 2023-12-20 04:12 | disposition home or self-care (01) ==
PROVIDERS: Emergency Provider Emergency Medicine; PCP Internal Medicine
DX: K60.2 Anal fissure, unspecified (principal); R14.0 Abdominal distension (gaseous)
CPT/HCPCS: 36415; 80048; 80076; 81003; 85025; 99283; 99284

== ENCOUNTER 2024-02-18 15:06 | Outpatient (AMB) | payer MEDICAID, SELFPAY ==
[2024-02-18 15:21] VITALS: BP 104/74; PULSE 78; O2SAT 96; BMI 29.8
--- NOTE | 2024-02-18 15:21 | MHC.OFFVIS ---
Vital Signs 02/18/24 15:21 Height 5 ft 3 in Weight 167 lb 15.876 oz BMI 29.8 BP 104/74 Blood Pressure Location Rt brachial Position Sitting Pulse 78 Pulse Source Pulse Oximeter Pulse Oximetry (%) 96 Oxygen Delivery Method Room Air Intake Visit Reasons: BRIGHT BLOOD IN STOOL Intake Note: Relevant Flags or Indicators ? Requires Water Resource Project Manager? Henna Arriaga presents in office today for a scheduled initial assessment. CC; Most recent labs and imaging performed as of November 2023. ? Relevant GI Sx as reported per pt? Nausea ? Fecal abnormalities o?? Discolored? Melena/hematochezia. o?? Diarrhea ? Abdominal Pain - umbilical region. Bloating. Abdominal distention ? Hx of any recent surgeries? None Water Resource Project Manager Required: No Allergies No Known Allergies [No Known Allergies*] Allergy (Verified 02/18/24 15:22) HPI Comments Details: 49 y.o F who is here for changes in bowel habits and rectal bleeding. Pt reports started noticing increased frequency of BMs which are softer and assoc with blood x2 months. Went to the ER for this in Nov and was told he has a fissure but does not report any discomfort on defecation. Also has to wake up at night time to defecate. Assoc with nausea, pain and increased flatulence and bloating. Appetite is ok, reports gaining weight. Has hx sleeve gastrectomy in 2018. Fam hx neg for CRC or IBD. Laboratory Tests 12/20/23 01:27 Hgb 13.3 Hct 38.3 PFSH Medical History Arthritis History of asthma Surgical History H/O abdominoplasty Family History Mother History of hypertension Arthritis Glaucoma Father Heart problem History of hypertension Brother Heart problem History of hypertension Sister History of hypertension Brother No problems noted. Brother No problems noted. Brother No problems noted. Brother No problems noted. Sister No problems noted. Sister No problems noted. Sister No problems noted. Social History Household Members: Spouse and Children Housing: House Alcohol intake: current Alcohol intake frequency: holidays/special occasions only Patient Tobacco Use Status: Never used Tobacco service: No Current occupational status: employed Review of Systems Const All systems reviewed & are unremarkable except as noted in HPI and below Physical Exam Vital Signs: Last Vital Signs Pulse 78 02/18/24 15:21 BP 104/74 02/18/24 15:21 Pulse Ox 96 02/18/24 15:21 Oxygen Delivery Method Room Air 02/18/24 15:21 BMI result Body Mass Index 29.8 No apparent distress Nonicteric Abdomen soft, nondistended rectal: declined by the pt Alert and oriented x3, normal gait Assessment & Plan Assessment & Plan (1) Change in bowel habit: Code(s): R19.4 - Change in bowel habit Category: Medical (2) Epigastric pain: Code(s): R10.13 - Epigastric pain Category: Medical Plan Ddx include marginal ulcer, gastritis, SIBO, celiac for sx of abd pain and bloating. Due to change in bowel habits + rectal bleeding, also considering IBD, SURS, mass, hemorrhoids. Plan: - Labs as below - EGD/colo to be booked - PEG prep isntructions reviewd and handout given - Also screenign for HBV and HCV as per CDC guidelines Follow up after scopes Orders: Orders Immunoglobulin A 02/18/24 R10.13 - Epigastric pain, R19.4 - Change in bowel habit TSH reflex Free T4 02/18/24 R10.13 - Epigastric pain, R19.4 - Change in bowel habit Hepatitis B Core Antibody 02/18/24 R10.13 - Epigastric pain, R19.4 - Change in bowel habit Hepatitis B Surface Antibody 02/18/24 R10.13 - Epigastric pain, R19.4 - Change in bowel habit Hepatitis B Surface Antigen 02/18/24 R10.13 - Epigastric pain, R19.4 - Change in bowel habit HIV Ab/Ag 02/18/24 R10.13 - Epigastric pain, R19.4 - Change in bowel habit IRON PROFILE 02/18/24 R10.13 - Epigastric pain, R19.4 - Change in bowel habit Calprotectin, Fecal 02/18/24 R10.13 - Epigastric pain, R19.4 - Change in bowel habit C Reactive Protein 02/18/24 R10.13 - Epigastric pain, R19.4 - Change in bowel habit Ferritin 02/18/24 R10.13 - Epigastric pain, R19.4 - Change in bowel habit GI Panel 02/18/24 R19.4 - Change in bowel habit Transglutaminase IgA 02/18/24 R10.13 - Epigastric pain, R19.4 - Change in bowel habit Hepatitis A IgG 02/18/24 R10.13 - Epigastric pain, R19.4 - Change in bowel habit Hepatitis C Antibody 02/18/24 R10.13 - Epigastric pain, R19.4 - Change in bowel habit Medications: New peg 3350-electrolytes 236-22.74-6.74 -5.86 gram (Golytely) as per split prep instructions, until fecal effluent is clear 240 mL PO Q10M 4,000 mL 0RF colonoscopy Coding Level of Care Code New Pt Level 4 (37053) Diagnoses Change in bowel habit R19.4 Epigastric pain R10.13
== END 2024-02-18 16:20 | disposition home or self-care (01) ==
PROVIDERS: PCP Internal Medicine; Visit Provider Internal Medicine
DX: R19.4 Change in bowel habit (principal); R10.13 Epigastric pain
CPT/HCPCS: 99204

== ENCOUNTER → 2024-02-18 15:06 | Outpatient (BNVA) | payer MEDICAID, SELFPAY | PROVIDERS: PCP Internal Medicine; Visit Provider Internal Medicine | DX: R19.4 Change in bowel habit (principal); R10.13 Epigastric pain | CPT/HCPCS: 99202 ==

== ENCOUNTER 2024-03-04 18:30 | Outpatient (REF) | payer MEDICAID, SELFPAY | END 2024-03-04 18:31 | disposition home or self-care (01) | LOC: HO.MRI 18:30 | PROVIDERS: Visit Provider Family Medicine | DX: M54.42 Lumbago with sciatica, left side (principal); G89.29 Other chronic pain | CPT/HCPCS: 72148 ==

== ENCOUNTER → 2024-03-04 18:51 | Outpatient (BNV) | payer MEDICAID, SELFPAY | PROVIDERS: Visit Provider Radiology Diagnostic Radiology | DX: M43.16 Spondylolisthesis, lumbar region (principal); M51.26 Other intervertebral disc displacement, lumbar region | CPT/HCPCS: 72148 ==

== ENCOUNTER 2024-03-26 14:25 | Outpatient (AMB) | payer MEDICAID, SELFPAY ==
--- NOTE | 2024-03-26 14:36 | A.OFFVIS_ITS ---
Vital Signs 03/26/24 14:43 Height 5 ft 4 in Weight 165 lb BMI 28.3 BP 115/62 Blood Pressure Location Lt brachial Position Sitting Pulse 79 Pulse Source Pulse Oximeter Pulse Oximetry (%) 100 Oxygen Delivery Method Room Air Intake Visit Reasons: Chronic Bilat low back pain Intake Note: Pain today 09/30 Deputy Insurance Commissioner Required: No Accompanied by: Spouse Allergies No Known Allergies [No Known Allergies*] Allergy (Verified 03/26/24 14:45) HPI HPI Chronic Bilat low back pain: Details: Patient is a pleasant 49 years old female with prior history of chronic low back pain, presents today for initial evaluation for lower back pain with radiation into left lower extremity. Denies any recent or past trauma, injury or falls. Reports back pain radiates into her left buttock and into left lateral hip and occasionally thigh and into her left lateral leg and toes with numbness and tingling in her left lower leg and left foot. She experiences occasional limping especially after prolonged sitting. Pain is constant and is most severe at night time which she rates at 10/10. Patient reports she was followed at [facility] 8 years ago and received DOMO injection that provided her pain relief for 4 years. Jose barragan also has tried NSAIDs, Tylenol, lidocaine patches, muscle relaxants, heat and activity modifications without relief. Patient attempted physical therapy [place] [facility] last year and had to discontinue due to increased pain with exercises. She completed lumbar spine MRI last month, with reports still pending. MRI imaging show no significant neural foraminal? or central canal stenosis. Pain is consistent with left SI joint pain with positive provocative testing and axial low back pain. Pain affects her daily activities and functioning, mobility, driving, mood, sleep and social interactions. Denies any fever or chills, weakness, foot drop, bladder or bowel dysfunction or saddle anesthesia. Oswestry Low Back Pain Disability Score=30 (severe disability) Location: Lower back radiates down left leg Duration: Chronic pain for >10 + years Characteristics of symptom or complaint: Jumping, stabbing, numbness, tingling, sharp, cramping, burning, tight Aggravating or associated factors: Prolonged sitting, walking, climbing, changing from sitting to standing Relieving factors: Tried NSAIDs, muscle relaxants, Tylenol, heat, activity modifications Treatment: PT-increased pain, lumbar DOMO at [facility] -good relief [facility] Medical History (Updated 03/26/24 @ 16:12 by RACQUEL Pike) Depression Anal fissure Hemorrhoids Chronic RLQ pain Polyuria Dizziness FILIBERTO (obstructive sleep apnea) Moderate persistent asthma in adult without complication Chronic low back pain Iron deficiency Arthritis History of asthma Surgical History (Updated 03/26/24 @ 15:50 by RACQUEL Pike) S/P laparoscopic sleeve gastrectomy H/O abdominoplasty Family History Mother History of hypertension Arthritis Glaucoma Father Heart problem History of hypertension Brother Heart problem History of hypertension Sister History of hypertension Brother No problems noted. Brother No problems noted. Brother No problems noted. Brother No problems noted. Sister No problems noted. Sister No problems noted. Sister No problems noted. Social History Household Members: Spouse and Children Housing: House Alcohol intake: current Alcohol intake frequency: holidays/special occasions only Patient Tobacco Use Status: Never used Tobacco service: No Current occupational status: employed Review of Systems Const All systems reviewed & are unremarkable except as noted in HPI and below Physical Exam Vital Signs: Last Vital Signs Pulse 79 03/26/24 14:43 BP 115/62 03/26/24 14:43 Pulse Ox 100 03/26/24 14:43 Oxygen Delivery Method Room Air 03/26/24 14:43 BMI result Body Mass Index 28.3 General: Appears afebrile. Alert and oriented. Mood and affect appropriate. Follows and participates in conversation appropriately. Respiratory effort is unlabored. No cough. Able to transition from sit to stand unassisted. Ambulates with bilaterally normal heel strike and toe off. General: Yes no CVA tenderness Back/Spine/Pelvis Other: Patient is able to walk and stand on heels and tip toes with no difficulties demonstrating good motor tone. Normal gait, no limping. Can flex forward to 70- 75 degrees and extend to 5-10 degrees before experiencing lumbar pain. Demonstrates 5/5 strength of quadriceps bilaterally as well as flexion/ dorsiflexion of bilateral feet against resistance. 2+ pedal pulses bilaterally. Straight leg rise with dorsiflexion negative bilaterally. +2 patellar and achilles reflexes bilaterally. Facet loading test positive bilaterally. Murphy sign, Jair?s, [place], Pelvic compression and Stinchfield tests are positive on the left. No groin pain with I/E hip rotations. Valsalva maneuver negative. Back: no CVA tenderness Cervical Spine: cervical ROM normal, cervical muscular tenderness, pain with cervical ROM and No Cervical spine tenderness Thoracic/Lumbar Spine: thoracic and lumbar spine normal to inspection, No Thoracic/lumbar spine scar(s), Lasegue's sign negative, straight leg raise negative bilaterally, pain with thoraco-lumbar ROM, paraspinal muscle tenderness, No thoracic spinal tenderness and lumbar spinal tenderness at L4 and at L5 Pelvis: buttock tenderness on the left Sacroiliac joints: on the right nontender and on the left tender to palpation Results Reviewed Results Reviewed: XR LUMBOSACRAL SPINE 09/12/23 CLINICAL INFORMATION: Chronic low back pain without sciatica. Patient states 2-3 years of low back pain worsening for the last 3-4 months. COMPARISON: 07/06/2014 FINDINGS: Dextroscoliosis of the lumbar spine. Postsurgical changes with clips in the left upper quadrant. Small pelvic calcifications are likely vascular. Bones are demineralized. Facet arthritis in the lower lumbar spine. Mild multilevel lumbar spondylosis with loss of disc space height at L3-L4. IMPRESSION: Mild multilevel lumbar spondylosis with loss of disc space height at L3-L4. XR HIP, RIGHT 02/28/23 CLINICAL INFORMATION: Pain FINDINGS: No fracture. Alignment is anatomic. Hip joint space is maintained. Soft tissues are unremarkable. IMPRESSION: Normal right hip. Assessment & Plan Assessment & Plan (1) Left hip pain: Code(s): M25.552 - Pain in left hip Category: Medical (2) Sacroiliac joint pain: Code(s): M53.3 - Sacrococcygeal disorders, not elsewhere classified Category: Medical (3) Lumbar back pain with radiculopathy affecting left lower extremity: Code(s): M54.16 - Radiculopathy, lumbar region Category: Medical (4) Muscle spasm of back: Code(s): M62.830 - Muscle spasm of back Category: Medical Plan Discussed interventional treatment options for left SIJ and radicular low back pain. Patient's symptoms are more consistent with SIJ pain than radiculopathy. Pending lumbar spine MRI results, imaging was reviewed with patient today. There is no significant neural foraminal? or central canal stenosis on MRI imaging. Will obtain hip with pelvic imaging to evaluate left SI joint area and hip for degenerative changes. Tenantively plan for left diagnostic SIJ injection with local and fluoroscopy. Expectations, risks and benefits were reviewed. Medical release request sent to [facility] for previous procedures and injections. All questions and concerns have been answered and patient agreed with the treatment plan. Follow up for xray results and sooner as needed. Coding Level of Care Code New Pt Level 4 (77217) Complex EM visit Add On G2211 Diagnoses Left hip pain M25.552 Sacroiliac joint pain M53.3 Lumbar back pain with radiculopathy affecting left lower extremity M54.16 Muscle spasm of back M62.830
[2024-03-26 14:43] VITALS: BP 115/62; PULSE 79; O2SAT 100; BMI 28.3
== END 2024-03-26 15:03 | disposition home or self-care (01) ==
PROVIDERS: PCP Internal Medicine; Referring Provider Family Medicine; Visit Provider Nurse Practitioner Family
DX: M25.552 Pain in left hip (principal); M53.3 Sacrococcygeal disorders, not elsewhere classified; M54.16 Radiculopathy, lumbar region; M62.830 Muscle spasm of back
CPT/HCPCS: 99204

== ENCOUNTER 2024-03-26 14:25 | Outpatient (REF) | payer MEDICAID, SELFPAY ==
--- NOTE | ~2024-03-26 | XR_ITS ---
CLINICAL HISTORY: M25.552 - Pain in left hip 3 view, pelvis and left hip Comparison: None Findings: No acute fracture or dislocation. No significant arthritic change. The soft tissues are unremarkable. IMPRESSION: No acute findings. This document has been electronically signed by: Gerald Toth MD on 03/29/2024 13:06:52
== END 2024-03-26 14:26 | disposition home or self-care (01) ==
LOC: HO.XRAY 14:25
PROVIDERS: PCP Internal Medicine; Referring Provider Family Medicine; Visit Provider Nurse Practitioner Family
DX: M25.552 Pain in left hip (principal); M53.3 Sacrococcygeal disorders, not elsewhere classified; M54.16 Radiculopathy, lumbar region; M62.830 Muscle spasm of back
CPT/HCPCS: 73502; 99212

== ENCOUNTER → 2024-03-26 15:13 | Outpatient (BNV) | payer MEDICAID, SELFPAY | PROVIDERS: PCP Internal Medicine; Referring Provider Family Medicine; Visit Provider Radiology Diagnostic Radiology | DX: M25.552 Pain in left hip (principal) | CPT/HCPCS: 73502 ==

== ENCOUNTER 2024-03-27 10:04 | Outpatient (REF) | payer MEDICAID, SELFPAY ==
[2024-03-27 11:38] LABS: C Reactive Protein < 0.04 mg/dL (< or = 0.50); Iron 298 mcg/dL (30-160); Percent Iron Saturation 92 % (15-50); Total Iron Binding Capacity 323 mcg/dL (228-428); Unsaturated Iron Binding < 25 ug/dL
[2024-03-27 11:51] LABS: Ferritin 12 ng/mL (10-250); TSH reflex Free T4 0.59 uIU/mL (0.32-4.0)
[2024-03-27 11:59] LABS: Hepatitis A Antibody IgG Nonreactive (Nonreactive); ~Hepatitis A Antibody IgG 0.38 S/CO (0.00-0.99)
[2024-03-27 12:02] LABS: HBS Num1 38.95 mIU/mL (0-7.99); HBsAGNum1 0.33 S/CO (0.00-0.99); HIV AB/AG Nonreactive (Nonreactive); HIV Num 1 0.06 S/CO (0.00-0.99); Hepatitis B Core Antibody Nonreactive (Nonreactive); Hepatitis B Surface Antigen Negative (Negative); ~HepC Num1 0.17 S/CO (0.00-0.79); ~Hepatitis B Surface Antibody REACTIVE (Nonreactive); ~Hepatitis C Antibody Nonreactive (Nonreactive)
[2024-03-29 09:44] LABS: Immunoglobulin A 269 mg/dL (47-310)
[2024-03-29 16:38] LABS: Transglutaminase IgA <1.0 U/mL
== END 2024-03-27 10:05 | disposition home or self-care (01) ==
LOC: HO.LAB 10:04
PROVIDERS: PCP Internal Medicine; Visit Provider Internal Medicine
DX: R10.13 Epigastric pain (principal); R19.4 Change in bowel habit
CPT/HCPCS: 36415; 82728; 82784; 83540; 84443; 86140; 86364; 86704; 86706; 86708; 86803; 87340; 87389

== ENCOUNTER 2024-03-31 11:14 | Outpatient (REF) | payer MEDICAID, SELFPAY ==
[2024-04-06 22:39] LABS: Calprotectin, Fecal 145 mcg/g
== END 2024-03-31 11:15 | disposition home or self-care (01) ==
LOC: HO.LNP 11:14
PROVIDERS: Visit Provider Internal Medicine
DX: R10.13 Epigastric pain (principal); R19.4 Change in bowel habit
CPT/HCPCS: 83993; 87507

== ENCOUNTER 2024-04-01 09:12 | Outpatient (REF) | payer MEDICAID, SELFPAY ==
[2024-04-01 12:42] LABS: Adenovirus F 40/41 Not Detected (Not Detect.); Astrovirus Not Detected (Not Detect.); Campylobacter Not Detected (Not Detect.); Cryptosporidium Not Detected (Not Detect.); Cyclospora cayetanensis Not Detected (Not Detect.); E. coli EAEC Not Detected (Not Detect.); E. coli EPEC Not Detected (Not Detect.); E. coli ETEC Not Detected (Not Detect.); E. coli STEC Not Detected (Not Detect.); Entamoeba histolytica Not Detected (Not Detect.); Giardia lamblia Not Detected (Not Detect.); Norovirus GI/GII Not Detected (Not Detect.); Plesiomonas shigelloides Not Detected (Not Detect.); Rotavirus A Not Detected (Not Detect.); Salmonella Not Detected (Not Detect.); Sapovirus Not Detected (Not Detect.); Shigella sp./EIEC Not Detected (Not Detect.); Vibrio Not Detected (Not Detect.); Vibrio Cholerae Not Detected (Not Detect.); Yersinia enterocolitica Not Detected (Not Detect.)
== END 2024-04-01 09:13 | disposition home or self-care (01) ==
LOC: HO.LNP 09:12
PROVIDERS: Visit Provider Internal Medicine
DX: R19.4 Change in bowel habit (principal)
CPT/HCPCS: 87507

== ENCOUNTER 2024-04-02 14:59 | Outpatient (REF) | payer MEDICAID, SELFPAY ==
--- NOTE | 2024-04-02 15:04 | EMG_ITS ---
Chief complaint: Chronic back pain with newer symptoms of left leg pain and numbness Reason for referral: Evaluate for radiculopathy Referred by: Dr. Leonard Procedure done: Left lower extremity NCS/EMG Precautions and/or limitations: None The limb temperature was monitored continuously and remained between 32-36 degrees C during the performance of the NCS. Nerve Conduction Studies Anti Sensory Summary Table ?Stim Site NR Onset (ms) Norm Onset (ms) Peak (ms) Norm Peak (ms) O-P Amp (?V) Norm O-P Amp Site1 Site2 Delta-0 (ms) Dist (cm) Quang (m/s) Norm Quang (m/s) Left Sural Anti Sensory (Lat Mall) Calf ? 3.2 3.9 <4.0 21.2 >5.0 Calf Lat Mall 3.2 14.0 44 Motor Summary Table ?Stim Site NR Onset (ms) Norm Onset (ms) O-P Amp (mV) Norm O-P Amp iAmp (mV) Amp (1st) (%) Site1 Site2 Delta-0 (ms) Dist (cm) Quang (m/s) Norm Quang (m/s) Left Peroneal Motor (Ext Dig Brev) Ankle ? 5.0 <4.0 9.3 >2.5 11.7 100.0 Ankle Ext Dig Brev 5.0 0.0 B Fib ? 11.0 8.9 11.1 95.7 B Fib Ankle 6.0 30.5 51 >40 Poplt ? 11.7 8.9 10.9 95.7 Poplt B Fib 0.7 4.5 64 >40 Left Tibial Motor (Abd Mckeon Brev) Ankle ? 4.4 <5 8.5 >2.5 13.5 100.0 Ankle Abd Mckeon Brev 4.4 0.0 Knee ? 12.3 8.2 11.4 96.5 Knee Ankle 7.9 38.0 48 >40 EMG ?Side Muscle Nerve Root Ins Act Fibs Psw Amp Dur Poly Recrt Int Pat Comment Left AbdHallucis MedPlantar S1-2 Nml Nml Nml Nml Nml 0 Nml Complete Left AntTibialis Dp Br Peron L4-5 Nml Nml Nml Nml Nml 0 Nml Complete Left PostTibialis Tibial L5, S1 Nml Nml Nml Nml Nml 0 Nml Complete Left MedGastroc Tibial S1-2 Nml Nml Nml Nml Nml 0 Nml Complete Left VastusMed Femoral L2-4 Nml Nml Nml Nml Nml 0 Nml Complete Paraspinal EMG ?Side Muscle Nerve Root Ins Act Fibs Psw Comment Left Lumbar Upper Rami Nml Nml Nml Left Lumbar Mid Rami Nml Nml Nml Left Lumbar Lower Rami Nml Nml Nml FINDINGS: Left peroneal nerve showed prolonged distal latency, normal amplitude and normal conduction velocity. No conduction block across the fibula. All other nerves tested were within normal. Concentric needle EMG was performed in selected muscles of the left lower extremity and lumbar paraspinals. Study did not reveal signs of electric abnormalities as shown in the table above. IMPRESSION: 1. There is no electrodiagnostic evidence for peroneal neuropathy across the fibula, tibial neuropathy. lumbosacral plexopathy, or peripheral neuropathy. 2. Cannot rule out left L5 radiculopathy. CLINICAL COMMENT: Further clinical correlation recommended. Thank you for your kind referral. Bea Jaramillo MD, BLANE Board Certified, [place] Board of Physical Medicine and Rehabilitation (ABPMR) Board Certified, [place] Board of Electrodiagnostic Medicine (ABEM) CODIN [id number] [facility]
== END 2024-04-02 15:00 | disposition home or self-care (01) ==
LOC: HO.NEURO 14:59
PROVIDERS: PCP Internal Medicine; Visit Provider Family Medicine
DX: M54.42 Lumbago with sciatica, left side (principal); G89.29 Other chronic pain
CPT/HCPCS: 95886; 95908

== ENCOUNTER → 2024-04-02 15:04 | Outpatient (BNV) | payer MEDICAID, SELFPAY | PROVIDERS: PCP Internal Medicine; Visit Provider Physical Medicine & Rehabilitation | DX: R20.0 Anesthesia of skin (principal); R20.2 Paresthesia of skin; M54.59 Other low back pain; M79.605 Pain in left leg | CPT/HCPCS: 95886; 95908 ==

== ENCOUNTER 2024-04-15 06:17 | Outpatient (REF) | payer MEDICAID, SELFPAY ==
--- NOTE | ~2024-04-15 | FL_ITS ---
EXAMINATION: FL GUIDANCE ONLY HISTORY: M53.3 - Sacrococcygeal disorders, not elsewhere classified COMPARISON: None available. TECHNIQUE: Fluoroscopy time: 0.2 minutes. Cumulative Dose: 3.65 mGy. DAP: 0.0226 uGy-m2 (microgray-meter squared). Images: 2. FINDINGS: Images demonstrate placement of a needle in the region of the left sacroiliac joint. FL/FL guidance in treatment room IMPRESSION: Fluoroscopy during procedure. Please see procedure report for additional information. Electronically signed by: Dorian Graham MD 04/19/2024 11:42 AM CHRISTIE
--- OUTSIDE RECORDS SUMMARY | 2024-04-15 06:20 | XMS_ITS | Encounter Summary ---
Author Organization [employer] Address [address] [facility] 7t [place] [address] Care Team Providers Care Bindery Assistant Name Role Phone Marian Crook MD Primary Care Provider + Reason for Visit * Reason Onset Date Comments Med Refill 03/25/2024 Encounter Details Date Type Department Care Team ([facility] st Contact Info) Description 03/25/2024 Refill [facility] MEDICINE [address] [place] [address] Marian Crook MD 230 [place] [address] Moderate persistent asthma without complication Social History Tobacco Use Types Packs/Day Years Used Date Smoking Tobacco: Never Smokeless Tobacco: Never Alcohol Use Standard Drinks/Week Comments Never 0 (1 standard drink = 0.6 oz pur e alcohol) Alcohol Answer Date Recorded How often do you have a drink containing alcohol ? 1 01/12/2024 How many drinks containing a lcohol do you have on a typical day when you are drinking? 2 01/12/2024 How often do you have six or more drinks on one occasion? 1 01/12/2024 Depression Answer Date Recorded Patient Health Questionnaire-9 Score 22 01/12/2024 Patient Health Questionnaire-9 Score 22 01/12/2024 Last PHQ-9: Questionnaire Data Not on file 1 Housing Stability Answer Date Recorded What is your housing situation today? I have bria frank 01/02/[address] you li ve. Do you have problems with any of the following? None of the above 01/02/2024 Food Insecurity Answer Date Recorded Within the past 12 months, y ou worried that your food would run out before you got money to buy more: Never True 01/02/2024 Within the past 12 months,th e food you bought just didn't last and you didn't have enough money to get more: Never True 01/2024 Transportation Answer Date Recorded In the past 12 months, has l ack of transportation kept you from medical appts, meetings, work or from getting things needed for daily living? No 01/02/2024 Utilities Answer Date Recorded In the past 12 months, has t he electric, gas, oil or water company threatened to shut off services in your home? No 01/02/2024 Depression Answer Date Recorded Patient Health Questionnaire-2 Score 5 01/12/2024 Internet Access Answer Date Recorded Internet Access Q1 Yes 01/02/2024 Internet Access Q2 Not on file 01/02/2024 Comments No Sex and Gender Information Value Date Recorded Sex Assigned at Female 01/21/2022 10:15 AM EDT Legal Sex Female 10:15 AM EDT Gender Identity Female 01/21/2022 10:15 AM EDT Sexual Orientation Choose not to disclose 2021 10:15 AM EDT documented as of this encounter Plan of Treatment Not on file documented as of this encounter Visit Diagnoses Diagnosis Moderate persistent asthma without complication documented in this encounter Additional Health Concerns Assessment Noted Time PHQ-9 Depression Total Score: 22 024 2:02 PM EDT documented as of this encounter Care Teams Bindery Assistant Relationship Specialty Start Date End Date Marian Crook MD [address] [place] [address] PCP - General Internal Medicine 09/12/23 documented as of this encounter
--- OUTSIDE RECORDS SUMMARY | 2024-04-15 06:20 | XMS_ITS | Encounter Summary ---
Author Organization [employer] Address 75 [facility] 7t [place] [address] Care Team Providers Care Rn Clinical Quality Name Role Phone Marian Crook MD Primary Care Provider + Reason for Visit * Reason Onset Date Comments Med Refill 03/25/2024 Encounter Details Date Type Department Care Team (Late st Contact Info) Description 03/25/2024 Refill [facility] MEDICINE 230 [place] [address] Claritza Leonard DO 230 [place] [address] Social History Tobacco Use Types Packs/Day Years [...] documented as of this encounter Visit Diagnoses Not on filedocumented in this encounter Additional Health Concerns Assessment Noted Time PHQ-9 Depression Total Score: 22 024 2:02 PM EDT documented as of this encounter Care Teams Rn Clinical Quality Relationship Specialty Start Date End Date Marian Crook MD [address] [place] [address] PCP - General Internal Medicine 09/12/23 documented as of this encounter
--- OUTSIDE RECORDS SUMMARY | 2024-04-15 06:20 | XMS_ITS | Encounter Summary ---
Author Organization [employer] Address 75 [facility] 7t [place] [address] Care Team Providers Care Photovoltaic Testing Technician Name Role Phone Marian Crook MD Primary Care Provider + Reason for Visit * Reason Onset Date Comments Results 03/19/2024 Encounter Details Date Type Department Care Team ([facility] Contact Info) Description 03/19/[address] [facility] MEDICINE 230 [place], [place] [phone] Marian Crook MD 230 [place] [address] Results Social History Tobacco Use Types Packs/Day Years [...] AM EDT documented as of this encounter Miscellaneous Notes * Telephone Encounter - Lina Yarbrough RN - 03/19/2024 8:52 AM EST Per [place], lumbar spine MRI was performed on 03/04/24 however interpretation report not yet available. TC placed to patient [phone] to inform of above information. Patient verbalized understanding. Patient to f/u PRN. * Telephone Encounter - Abner Daniel - 03/19/2024 8:22 AM EST Tc from pt requesting MRI results. Please contact at [phone] Romanian documented in this encounter Plan of Treatment Not on file documented as of this encounter Visit Diagnoses Not on filedocumented in this encounter Additional Health Concerns Assessment Noted Time PHQ-9 Depression Total Score: 22 024 2:02 PM EDT documented as of this encounter Care Teams Photovoltaic Testing Technician Relationship Specialty Start Date End Date Marian Crook MD [address] [place] [phone] PCP - General Internal Medicine 09/12/23 documented as of this encounter
--- OUTSIDE RECORDS SUMMARY | 2024-04-15 06:20 | XMS_ITS | Encounter Summary ---
Author Organization [employer] Address 75 [facility] 7t [place] [address] Care Team Providers Care Recruitment Consultant Name Role Phone Marian Crook MD Primary Care Provider + Reason for Visit * Reason Onset Date Comments Med Refill 03/25/2024 Encounter Details Date Type Department Care Team (Late st Contact Info) Description 03/25/2024 Refill [facility] MEDICINE 230 [place] [address] Marian Crook MD 230 [place] [address] Social History Tobacco Use Types Packs/Day Years [...] documented as of this encounter Care Teams Recruitment Consultant Relationship Specialty Start Date End Date Marian Crook MD [address] [place] [phone] PCP - General Internal Medicine 09/12/23 documented as of this encounter
--- OUTSIDE RECORDS SUMMARY | 2024-04-15 06:20 | XMS_ITS | Encounter Summary ---
Author Organization [employer] Address [address] [facility] [address] 7t [place] [address] Care Team Providers Care Nuclear Process Engineer Name Role Phone Marian Crook MD Primary Care Provider + Encounter Details Date Type Department Care Team (Late st Contact Info) Description 03/26/2024 Orders Only [facility] External Provider, [facility] Social History Tobacco Use Types Packs/Day Years [...] as of this encounter Miscellaneous Notes * Result Encounter Note - Marian Crook MD - 03/26/2024 11:59 PM EST Please send Normal Imaging Letter documented in this encounter Plan of Treatment Not on file documented as of this encounter Procedures Procedure Name Priority Date/Time Associated Diagnosis Comments XR HIP 2 OR 3 VIEWS LEFT Routine 03/29/2024 1:06 PM EST documented in this encounter Results * XR Hip 2 or 3 Views Left (03/29/2024 1:06 PM EST) Anatomical Region Laterality Modality Lower Extremities, Hip Left Radiograp hic Imaging 03/29/2024 1:06 PM EST Narrative 03/29/2024 1:08 PM EST ? [facility] ?[address] ?[place] [address] ?XRay Report ? Signed ? Patient: Abrams James,Corina ?MR#: [id number] ?? [id number] ? : 1975 ?Acct:[id number] ? Age/Sex: 49 / F ?ADM Date: 01/03/25 ? Loc: HO.XRAY ? Attending Dr: Jada CLEMENT ? Ordering Physician: Jada Cervantes ?? Date of Service: 03/26/24 ?? Procedure(s): XR hip LT min 2V w/wo pel ?? Accession Number(s): [id number] ? cc: Jada Cervantes; Marian Crook MD ? CLINICAL HISTORY: M25.552 - Pain in left hip ? 3 view, pelvis and left hip ? Comparison: None ? Findings: ?? No acute fracture or dislocation. ?? No significant arthritic change. ?? The soft tissues are unremarkable. ? IMPRESSION: ?? No acute findings. ? This document has been electronically signed by: Gerald Toth MD on ?? 03/29/2024 13:06:52 ? Dictated By: ?Gerald Toth MD ? Signed By: ?<Electronically signed by Gerald Toth MD in OV> ? 03/29/24 1307 ? DD/ 1306 ? TD/TT: 03/29/24 1306 ? Cdl Driver: ? Procedure Note Donpakyleter, Image - 03/29/2024 [place] [address] XRay Report Signed Patient: Yarelis Nielsen#: [id number] : 1975Acct:[id number] Age/Sex: 49 / FADM Date: 03/26/24 Loc: [facility] Attending Dr: Jada CLEMENT Ordering Physician: Jada Cervantes Date of Service: 03/26/24 Procedure(s): XR hip LT min 2V w/wo pel Accession Number(s): [id number] cc: Jada Cervantes; Marian Crook MD CLINICAL HISTORY: M25.552 - Pain in left hip 3 view, pelvis and left hip Comparison: None Findings: No acute fracture or dislocation. No significant arthritic change. The soft tissues are unremarkable. IMPRESSION: No acute findings. This document has been electronically signed by: Gerald Toth MD on 03/29/2024 13:06:52 Dictated By: Gerald Toth MD Signed By: <Electronically signed by Gerald Toth MD in OV> 03/29/24 1307 DD/ 1306 TD/TT: 03/29/24 1306 Cdl Driver: [facility] External Provider IMG XR PROCEDURES Edited Result - Final documented in this encounter Visit Diagnoses Not on filedocumented in this encounter Additional Health Concerns Assessment Noted Time PHQ-9 Depression Total Score: 22 024 2:02 PM EDT documented as of this encounter Care Teams Nuclear Process Engineer Relationship Specialty Start Date End Date Marian Crook MD [address] [place] [address] PCP - General Internal Medicine 09/12/23 documented as of this encounter
--- OUTSIDE RECORDS SUMMARY | 2024-04-15 06:20 | XMS_ITS | Encounter Summary ---
Author Organization [employer] [facility] Address [address] [place] [address] 7t [place] [address] Care Team Providers Care Dental Assistant Name Role Phone Marian Crook MD Primary Care Provider + Reason for Visit * Reason Comments Med Refill Encounter Details Date Type Department Care Team (Late st Contact Info) Description 11/27/2023 Refill [facility] MEDICINE 230 [place] [address] Marian Crook MD [address] [place] [address] Social History Tobacco Use Types Packs/Day Years Used Date Smoking Tobacco: Never Smokeless Tobacco: Never Alcohol Use Standard Drinks/Week Comments Never 0 (1 standard drink = 0.6 oz pur e alcohol) Depression Answer Date Recorded Patient Health Questionnaire-9 Score 16 06/18/2022 Depression Answer Date Recorded Patient Health Questionnaire-2 Score 5 06/18/2022 Comments No Sex and Gender Information Value [...] Assessment Noted Time PHQ-9 Depression Total Score: 16 06/18/ 023 3:25 PM EDT documented as of this encounter Care Teams Dental Assistant Relationship Specialty Start Date End Date Marian Crook MD [address] [place] [address] PCP - General Internal Medicine 09/12/23 documented as of this encounter
--- OUTSIDE RECORDS SUMMARY | 2024-04-15 06:20 | XMS_ITS | Encounter Summary ---
Author Organization [employer] Address 75 [facility] 7t [place] [address] Care Team Providers Care Qualitative Researcher Name Role Phone Marian Crook MD Primary Care Provider + Reason for Visit * Reason Comments Med Refill Encounter Details Date Type Department Care Team ([facility] st Contact Info) Description 04/13/2024 Refill [facility] MEDICINE 230 [place], [place] [phone] Marian Crook MD 230 [place], [place] [phone] Social History Tobacco Use Types Packs/Day Years [...] documented as of this encounter Care Teams Qualitative Researcher Relationship Specialty Start Date End Date Marian Crook MD [address] [place] [address] PCP - General Internal Medicine 09/12/23 documented as of this encounter
--- OUTSIDE RECORDS SUMMARY | 2024-04-15 06:20 | XMS_ITS | Encounter Summary ---
Author Organization [employer] Address [address] [place] [address] 7t [place] [address] Care Team Providers Care Customer Support Engineer Name Role Phone Jemez PuebloAlisha nava Primary Care Provider [phone] Marian Crook MD Primary Care Provider + Encounter Details Date Type Department Care Team (Late st Contact Info) Description 04/03/2023 Abstract [facility] MEDICINE [address] [place] [address] [place] Alisha [facility] 230 [place] [address] Social History Tobacco Use Types Packs/Day Years Used Date Smoking Tobacco: Never Smokeless Tobacco: Never Alcohol Use Standard Drinks/Week Comments Never 0 (1 standard drink = 0.6 oz pur e alcohol) Depression Answer Date Recorded Patient Health Questionnaire-9 Score 16 06/18/2022 Depression Answer Date Recorded Patient Health Questionnaire-2 Score 5 06/18/2022 Comments Unknown Sex and Gender Information Value Date Recorded [...] documented as of this encounter Care Teams Customer Support Engineer Relationship Specialty Start Date End Date Alisha Hook FNP 230 [place] [address] PCP - General Family Medicine 11/14/21 09/11/23 Marian Crook MD [address] [place] [address] PCP - General Internal Medicine 09/12/23 documented as of this encounter
--- OUTSIDE RECORDS SUMMARY | 2024-04-15 06:20 | XMS_ITS | Encounter Summary ---
Author Organization [employer] [facility] Address [address] [place] [address] 7t [place] [address] Care Team Providers Care Maintenance Welder Name Role Phone Marian Crook MD Primary Care Provider + Reason for Referral * Imaging (Routine) - Authorized Specialty Diagnoses / Procedures Referred By Contac t Referred To Contact Radiology Diagnoses Abnormal MRI, lumbar spine Procedures US Pelvis Transvaginal Claritza Leonard DO [address] [place] [address] Phone: tel: fax: [address] Phone: tel: fax: Referral ID Status Reason Start Date Expiration Date V isits Requested Visits Authorized [id number] Authorized 04/09/2024 04/09/2025 1 1 * Imaging (Routine) - Authorized Specialty Diagnoses / Procedures Referred By Contac t Referred To Contact Radiology Diagnoses Abnormal MRI, lumbar spine Procedures Us Pelvis complete Claritza Leonard DO [address] [place] [address] Phone: tel: fax: [address] Phone: tel: fax: Referral ID Status Reason Start Date Expiration Date V isits Requested Visits Authorized [id number] Authorized 04/09/2024 04/09/2025 1 1 * Imaging (Routine) - Authorized Specialty Diagnoses / Procedures Referred By Contmartín t Referred To Contact Radiology Diagnoses Abnormal MRI, lumbar spine Procedures US RENAL BI Claritza Leonard DO [address] [place] [address] Phone: tel: fax: [address] Phone: tel: fax: Referral ID Status Reason Start Date Expiration Date V isits Requested Visits Authorized [id number] Authorized 04/09/2024 04/09/2025 1 1 Encounter Details Date Type Department Care Team (Late st Contact Info) Description 04/09/2024 Orders Only [facility] MEDICINE 230 [place] [address] Claritza Leonard DO [address] [place] [address] Abnormal MRI, lumbar spine (Primary Dx) Social History Tobacco Use Types Packs/Day Years [...] AM EDT documented as of this encounter Progress Notes * Claritza Leonard DO - 04/09/2024 1:48 PM EST Renal and pelvic US ordered. documented in this encounter Plan of Treatment Scheduled Orders Name Type Priority Associated Diagnoses Orde r Schedule US RENAL BI Imaging Routine Abnormal MRI, lumbar spine Expected: 04/09/2024, Expires: 04/09/2025 Us Pelvis complete Imaging Routine Abnormal MRI, lumbar spine Expected: 04/09/2024, Expires: 04/09/2025 US Pelvis Transvaginal Imaging Routine Abnormal MRI, lumbar spine Expected: 04/09/2024, Expires: 04/09/2025 documented as of this encounter Visit Diagnoses Diagnosis Abnormal MRI, lumbar spine- Primary documented in this encounter Additional Health Concerns Assessment Noted Time PHQ-9 Depression Total Score: 22 024 2:02 PM EDT documented as of this encounter Care Teams Maintenance Welder Relationship Specialty Start Date End Date Marian Crook MD [address] [place] [phone] PCP - General Internal Medicine 09/12/23 documented as of this encounter
--- OUTSIDE RECORDS SUMMARY | 2024-04-15 06:20 | XMS_ITS | Encounter Summary ---
Author Organization [employer] Address 75 [facility] 7t [place] [address] Care Team Providers Care Etl Database Developer Name Role Phone Marian Crook MD Primary Care Provider + Reason for Visit * Reason Onset Date Comments Results 03/30/2024 Encounter Details Date Type Department Care Team ([facility] st Contact Info) Description 03/30/2024 Telephone [facility] MEDICINE 230 [place], [place] [phone] Marian Crook MD 230 [place], [place] [phone] Results Social History Tobacco Use Types Packs/Day [...] Telephone Encounter - Lina Yarbrough RN - 04/09/2024 2:01 PM EST TC placed to patient [phone] to inform ordering provider has placed US orders and patient willreceive a call from the hospital with US appointment date and time. Patient verbalized understanding. Patient to f/u PRN. * Telephone Encounter - Hang Prieto - 04/09/2024 8:26 AM EST TC from pt reports still waiting for U/S orders * Telephone Encounter - Lina Yarbrough RN - 03/30/2024 4:34 PM EST TC placed to patient [phone] in regards to below message. Patient advised of lumbar spine MRI returning showing two incidental findings (renal cysts and uterine fibroid). Patient advised provider will order pelvic US and renal US which the hospital will call the patient to schedule US's. 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 Patient verbalized understanding. RN reviewed chart and patient was seen by [facility] on 03/27/24 and they are recommending injections. RN advised patient to continue with PM plan of receiving injections. Patient advised we will call her once we receive the US results and they are reviewed by the provider. Patient reports [facility] called her regarding her BW results already approx 2 hours ago and her hemoglobin was elevated therefore they are having her perform a stool test and repeat the BW in 2 weeks fasting. RN advised patient to follow GI POC. * Telephone Encounter - Madelyn Johansen - 03/30/2024 8:33 AM EST TC from pt requesting call back regarding Results. Type of results: MRI 02/26/2024 , Blood Labs 03/27/2024 Date when done: 02/26/2024 Facility: [facility] documented in this encounter Plan of Treatment Not on file documented as of this encounter Visit Diagnoses Not on filedocumented in this encounter Additional Health Concerns Assessment Noted Time PHQ-9 Depression Total Score: 22 024 2:02 PM EDT documented as of this encounter Care Teams Etl Database Developer Relationship Specialty Start Date End Date Marian Crook MD [address] [place] [phone] PCP - General Internal Medicine 09/12/23 documented as of this encounter
--- OUTSIDE RECORDS SUMMARY | 2024-04-15 06:20 | XMS_ITS | Encounter Summary ---
Author Organization [employer] Address 75 [facility] 7t [place] [address] Care Team Providers Care Table Attendant Name Role Phone Marian Crook MD Primary Care Provider + Reason for Visit * Reason Onset Date Comments Stable Imaging Letter 03/30/2024 Encounter Details Date Type Department Care Team ([facility] st Contact Info) Description 03/30/2024 Telephone [facility] MEDICINE [address] [place] [address] Marian Crook MD 230 [place] [address] Stable Imaging Letter Social History Tobacco Use Types Packs/Day Years [...] encounter Miscellaneous Notes * Telephone Encounter - Mona Almazan - 03/30/2024 8:18 AM EST Mailed out normal imaging letter. documented in this encounter Plan of Treatment Not on file documented as of this encounter Visit Diagnoses Not on filedocumented in this encounter Additional Health Concerns Assessment Noted Time PHQ-9 Depression Total Score: 22 024 2:02 PM EDT documented as of this encounter Care Teams Table Attendant Relationship Specialty Start Date End Date Marian Crook MD [address] [place] [address] PCP - General Internal Medicine 09/12/23 documented as of this encounter
--- OUTSIDE RECORDS SUMMARY | 2024-04-15 06:20 | XMS_ITS | Encounter Summary ---
Author Organization [employer] Address [address] [facility] [address] 7t [place] [address] Care Team Providers Care Kettleman Name Role Phone Marian Crook MD Primary Care Provider + Encounter Details Date Type Department Care Team ([facility] st Contact Info) Description 03/22/2024 Telephone [facility] MEDICINE 230 [place], [place] [phone] Claritza Leonard DO 230 [place], [place] [phone] Social History Tobacco Use Types Packs/Day Years [...] documented as of this encounter Care Teams Kettleman Relationship Specialty Start Date End Date Marian Crook MD [address] [place] [address] PCP - General Internal Medicine 09/12/23 documented as of this encounter
--- OUTSIDE RECORDS SUMMARY | 2024-04-15 06:20 | XMS_ITS | Encounter Summary ---
Author Organization [employer] Address [address] [facility] 7t [place] [address] Care Team Providers Care Solar Development Engineer Name Role Phone Marian Crook MD Primary Care Provider + Reason for Visit * Reason Onset Date Comments Med Refill 03/25/2024 Encounter Details Date Type Department Care Team (Late st Contact Info) Description 03/25/2024 Refill [facility] MEDICINE 230 [place] [address] Claritza Leonard DO 230 [place] [address] Social History Tobacco Use Types Packs/Day Years [...] documented as of this encounter Care Teams Solar Development Engineer Relationship Specialty Start Date End Date Marian Crook MD [address] [place] [phone] PCP - General Internal Medicine 09/12/23 documented as of this encounter
--- OUTSIDE RECORDS SUMMARY | 2024-04-15 06:20 | XMS_ITS | Clinical Summary ---
Author Organization [employer] Address [address] [place] [address] [address] [place] [address] Care Team Providers Care Teletypist Name Role Phone Marian Crook MD Primary Care Provider + Allergies No known active allergies Medications Vaginal Lubricant (Replens) gelIndications:V aginal dryness Insert 2 g into the vagina if needed (vaginal dryness). 35 g 1 12/07/19 23 Active Omeprazole 20 MG tablet delayed-releaseI ndications:Pain of right hip Take 20 mg by mouth in the morning for 14 days. 14 tablet 02/29/20 23 Active nitroglycerin (Rectiv) 0.4 % (w/w) rectal ointmentIndicati ons:Anal fissure Insert 1 inch (1 Application.) into the rectum every 12 (twelve) hours. 30 g 12/23/19 24 Active montelukast (Singulair) 10 MG tablet TAKE 1 TABLET BY MOUTH EVERY MORNING 90 tablet 1 01/12/20 24 Active venlafaxine XR (Effexor XR) 37.5 MG 24 hr capsuleIndicatio ns:Hot flashes Take 1 capsule (37.5 mg) by mouth Once per day. Do not crush or chew. 30 capsule 11 01/12/20 24 025 Active albuterol 108 (90 Base) MCG/ACT inhalerIndicatio ns:Moderate persistent asthma without complication Inhale 2 puffs every 6 (six) hours if needed for shortness of breath or wheezing. 18 g 3 01/12/20 24 Active meloxicam (Mobic) 7.5 MG tablet TAKE 1 TABLET BY MOUTH EVERY DAY 30 tablet 02/24/20 24 Active acetaminophen (Tylenol 8 Hour) 650 MG ER tablet Take 1 tablet (650 mg) by mouth every 8 (eight) hours if needed for mild pain. Do not crush, chew, or split. 50 tablet 2 02/26/20 24 025 Active baclofen (Lioresal) 10 MG tablet Take 0.5-1 tablets (5-10 mg) by mouth 2 times daily. 30 tablet 1 02/26/20 24 025 Active Diclofenac Sodium 1 % gel Apply 2 g topically if needed in the morning, at noon, in the evening, and at bedtime (pain). 150 g 2 02/26/20 24 Active lidocaine (Lidoderm) 5 % patch Apply 1 patch topically Once per day. Remove & discard patch within 12 hours or as directed by MD. 30 patch 2 02/26/20 24 Active cetirizine (ZyrTEC) 10 MG tablet TAKE 1 TABLET BY MOUTH EVERY DAY 90 tablet 04/13/19 25 Active cetirizine (ZyrTEC) 10 MG tablet Take 1 tablet (10 mg) by mouth Once per day. 90 tablet 01/12/20 24 025 Discontinued Active Problems Problem Noted Date Diagnosed Date Bright red blood per rectum 12/23/2023 Assessment & Plan (01/12/2024 2:40 PM EDT): Resolved, it seems to be related to anal fissure. No evidence of anemia. FU with GI Generalized abdominal pain 12/23/2023 Hemorrhoids 12/23/2023 Anal fissure 12/23/2023 Polyuria 11/13/2023 Assessment & Plan (11/13/2023 3:01 PM EDT): Tests are negative for DM, will order US of Abdomen to r/o kidney stones. Will order 24h urine to evaluate polyuria, proteinuria? presence of specific solutes in urine. SIADH from venlafaxine? Will fu after 24h urine collection Chronic RLQ pain 11/13/2023 Assessment & Plan (11/13/2023 2:59 PM EDT): R/o kidney stones/ovarian pathology. Order abd US Screening for colorectal cancer 11/13/2023 Assessment & Plan (11/13/2023 10:30 AM EDT): Repeat order for Zac pt did not send previous kit. Chronic lower back pain 09/12/2023 Assessment & Plan (09/12/2023 5:24 PM EDT): pt w chronic lower back pain ,and right sciatica symptoms Here normal neuro examination -tylenol prn for mild pain -meloxicam PRN for mod pain -lidoderm patches -PT referred today -lumbar XR referred today for chronicity of symptoms Dizziness 09/12/2023 Assessment & Plan (09/12/2023 5:24 PM EDT): Episodes of dizziness/palpitations w blurry vision not associated w cardiac symptoms Here normal CV ,resp exam Currently asymptomatic -urine preg neg today -will start w labs to r/o anemia, thyroid dx ,DM ,etc. CBC,chem,TSH, hb1AC -F w PCP to further evaluate -advised hydration -alarm signs and symptoms discussed Pain of right hip 03/26/2023 Assessment & Plan (05/20/2023 3:49 PM EST): -trial celebrex for pain -omeprazole rx given as ulcer preventative given history of gastric sleeve -x-ray's ordered to evaluate for joint injury -patient advised to rest, apply warm compress to site as needed -follow-up with PCP if symptoms persist History of sleeve gastrectomy 06/18/2022 Moderate persistent asthma without complication 06/18/2022 Assessment & Plan (01/12/2024 2:40 PM EDT): Controlled, continue Singulair only + Albuterol prn Declined Influenza or Covid booster, reccommended to get them at earliest convenience. Assessment & Plan (11/13/2023 10:29 AM EDT): Seems to be controlled on Singulair. Continue Albuterol prn. Will follow up for immunizations due in fall. Iron deficiency anemia 11/10/2021 Obstructive sleep apnea syndrome 05/15/2017 Assessment & Plan (01/12/2024 2:39 PM EDT): Never used/tolerated CPAP and sent it back to DME provider many years ago. She sleeps well, fu prn. Overweight 01/18/2015 Assessment & Plan (01/12/2024 2:41 PM EDT): Discussed re weight reduction options including exercise, life style modifications, diet. Recommended to decrease soda and sugary beverage consumption, increase protein intake with meals (at least 1 portion of protein with each meal) to assist with satiety, increase dietary fiber Recommended at least 150 min/week of moderate intensity exercise. Depression Assessment & Plan (01/12/2024 2:45 PM EDT): She's been doing for several years , off meds. Sxs are triggered now by potential issue with hosing and her dogs. Unfortunately she hasn't been seen for that here in long time, it is unclear if she actually needs the three dogs for anxiety. I told her that obviously she's attached to her dogs but she needs to fu with a MH provider for this letter, she has appt with [facility] next week. I told her to reach out to legal support assistant to help her write a letter so that housing give her some more time to get the letter from MH provider. She will res tart Effexor for anxiety and fu with me in 6m Encounters Date Type Department Care Team Description 04/13/2024 Refill [facility] [address] [place] [address] Marian Crook MD 04/09/2024 Orders Only [facility] [address] [facility] [place] [address] Claritza Leonard DO Abnormal MRI, lumbar spine (Primary Dx) 03/30/2024 Telephone [facility] [address] [facility] [place] [address] Marian Crook MD Results 03/30/2024 Telephone [facility] [address] [facility] [place] [address] Marian Crook MD Stable Imaging Letter 03/30/2024 Telephone [facility] [address] [facility] [place] [address] Marian Crook MD Call Back Requested 03/27/2024 Orders Only GENERIC EXTERNAL DATA DEPARTMENT Provider, Generic External Data 03/26/2024 Orders Only [facility] External Provider, [facility] 03/25/2024 Refill [facility] [address] [facility] [place] [address] Marian Crook MD Moderate persistent asthma without complication 03/25/2024 Refill [facility] [address] [place] [address] Marian Crook MD 03/25/2024 Refill [facility] [address] [place] [address] Claritza Leonard, DO 03/25/2024 Refill [facility] [address] [facility] [place] [address] Claritza Leonard, DO 03/22/2024 Telephone [facility] [address] [place] [address] Claritza Leonard, DO 03/19/2024 Telephone [facility] [address] [place] [address] Marian Crook MD Results 03/05/2024 Refill [facility] [address] [place] [address] Claritza Leonard, DO 03/01/2024 Telephone [facility] [address] [place] [address] Marian Crook MD Nurse Triage 02/26/2024 12:00 PM EST Office Visit [facility] [address] [facility] [place] [address] Claritza Leonard, DO Folliculitis (Primary Dx); Chronic bilateral low back pain with left-sided sciatica 02/26/2024 Travel 02/26/2024 Telephone [facility] [address] [facility] [place] [address] Marian Crook MD Nurse Triage 02/24/2024 Refill [facility] [address] [place] [address] Marian Crook MD 02/01/2024 Refill [facility] [address] [place] [address] Marian Crook MD from Last 3 Months Immunizations Name Administration Dates Next Due Hep B, Adolescent or Pediatric 12/02/2008,2008 Hep B, adult 10/11/2013 Influenza injectable quadriv alent IIV4 with preservative 05/15/2017,12/14/2015,01/18/2015 Influenza injectable quadriv alent preservative free 02/24/2020,12/20/2018 Influenza, Split (incl. [place] antigen) 12/03/2012 Pneumococcal Conjugate PCV 20 01/12/2024 Pneumococcal Polysaccharide PPSV23 10/11/2013 TD (adult), 2 Lf tetanus tox oid, preservative free, adsorbed 10/11/2008,09/11/1998 Tdap 01/12/2024,12/03/2012 Varicella 12/02/2008 Family History Medical History Relation Name Comments Coronary artery disease Brother Coronary artery disease Father Stroke Father Asthma Father's Sister Glaucoma Mother Hypertension Mother Osteoporosis Mother Asthma Paternal Grandmother Relation Name Status Comments Brother Father Father's Sister Mother Paternal Grandmother Social History Tobacco Use Types Packs/Day Years Used Date Smoking Tobacco: Never Smokeless Tobacco: Never Tobacco Cessation:Counseling Given: Not Answered Alcohol Use Standard Drinks/Week Comments Never 0 [...] not to disclose 2021 10:15 AM EDT Last Filed Vital Signs Vital Sign Reading Time Taken Comments Blood Pressure 106/54 02/26/2024 12:02 PM EST Pulse 81 02/26/2024 12:02 PM EST Temperature 36.5 ??C (97.7 ??F) 02/26/2024 12:[address] Respiratory Rate 20 02/26/2024 12:02 PM EST Oxygen Saturation 98% 02/26/2024 12:02 PM EST Inhaled Oxygen Concentration - - Weight 76.9 kg (169 lb 9.6 oz) 02/26/2024 12:02 PM EST Height 160 cm (5' 3 ) 02/26/2024 12:02 PM EST Body Mass Index 30.04 02/26/2024 12:02 PM EST Plan of Treatment Health Maintenance Due Date Last Done Comments CT Colonography 1975 Colonoscopy 1975 FIT 1975 FOBT 1975 Sigmoidoscopy 1975 Family Planning (PISQ) 1990 Hepatitis B Vaccines (2 of 3 - 19+ 3-dose series) 11/08/2013 10/11/2013, 12/02/2008, 10/11/2008 COVID-19 Vaccine ( season) 2023 04/25/2021, 05/14/2020, 04/23/2020 Influenza Vaccine (#1) 2023 , 12/20/2018, 05/15/2017, Additional history exists Depression Monitoring (PHQ-9) 07/12/2024 01/12/2024, 01/12/2024 Mammogram 12/04/2024 12/05/2023, 09/21, 09/29/2017 SDOH Screening 01/01/2025 01/02/2024 Alcohol/Substance Use Screening 01/11/2025 01/12/2024 Depression Screening 01/11/2025 01/12/2024, 01/12/20 24 Tobacco Screening 01/11/2025 01/12/2024 Zoster Vaccines (1 of 2) 2025 Cervical Cancer Screening 06/06/2025 HPV/Cotest 06/06/2025 06/06/2020 Pap Smear 06/06/2025 06/06/2020 Colorectal Cancer Screening 02/01/2027 FIT DNA/Cologuard 02/01/2027 02/02/2024 DTaP/Tdap/Td Vaccines (3 - Td or Tdap) 01/11/2034 01/12/2024, 12/03/2012, 10/11/2008, Additional history exists RSV Patients and Patients Aged 60 years or older (1 - 1-dose 75+ series) 2050 Pneumococcal Vaccine: Pediatrics (0 to 5 Years) and At-Risk Patients (6 to 64 Years) Completed 01/12/2024, 10/11/2013 HIV Screening Completed 03/27/2024 Hepatitis C Screening Completed 03/27/2024 HIB Vaccines Aged Out No longer eligi ble based on patient's age to complete this topic HPV Vaccines Aged Out No longer eligi ble based on patient's age to complete this topic Hepatitis A Vaccines Aged Out No long er eligible based on patient's age to complete this topic IPV Vaccines Aged Out No longer eligi ble based on patient's age to complete this topic Meningococcal Vaccine Aged Out No janet geni eligible based on patient's age to complete this topic RSV under 20 months Aged Out No longe r eligible based on patient's age to complete this topic Rotavirus Vaccines Aged Out No longer eligible based on patient's age to complete this topic Procedures Procedure Name Priority Date/Time Associated Diagnosis Comments XR HIP 2 OR 3 VIEWS LEFT Routine 025 1:06 PM EST TISSUE TRANSGLUTAMINASE AB, IGA Routine 03/27/2024 10:19 AM EST IMMUNOGLOBULIN A Routine 03/27/2024 10:1 9 AM EST HEPATITIS B SURFACE ANTIGEN, EIA Routine 03/27/2024 10:19 AM EST HIV 1/2 ANTIGEN/ANTIBODY, FOURTH GENERATION W/RFL Routine 03/27/2024 10:19 AM EST HEPATITIS C ANTIBODY Routine 03/27/2024 10:19 AM EST HEPATITIS B CORE AB TOTAL Routine 03/27/2024 10:19 AM EST HEPATITIS B SURFACE ANTIBODY, QUALITATIVE Routine 03/27/2024 10:19 AM EST HEPATITIS A ANTIBODY, TOTAL Routine 03/27/2024 10:19 AM EST TSH W/REFLEX TO FT4 Routine 03/27/2024 1 0:19 AM EST FERRITIN Routine 03/27/2024 10:19 AM EST C-REACTIVE PROTEIN Routine 03/27/2024 10 :19 AM EST IRON AND TOTAL IRON BINDING CAPACITY Routine 03/27/2024 10:19 AM EST MR LUMBAR SPINE WO CONTRAST Routine 03/04/2024 7:00 PM EST Chronic bilateral low back pain with left-sided sciatica LAB COLOGUARD?? COLON CANCER SCREEN Routine 02/02/2024 9:15 AM EST Screening for colorectal cancer BI MAMMOGRAM SCREENING TOMOSYNTHESIS BILATERAL Routine 12/05/2023 3:30 PM EDT Screening mammogram for breast cancer HPV MRNA E6/E7 Routine 06/06/2020 2:03 PM EDT THINPREP IMAGING SYSTEM PAP Routine 06/06/2020 2:03 PM EDT from Last 3 Months or Most Recently Relevant to Health Maintenance Results * XR Hip 2 or 3 Views Left (03/29/2024 1:06 PM EST) Anatomical Region Laterality Modality Lower Extremities, Hip Left Radiograp hic Imaging 03/29/2024 1:06 PM EST Narrative 03/29/2024 1:08 PM EST ? [facility] ?[address] ?[place] [address] ?XRay Report ? Signed ? Patient: Corina Nielsen ?MR#: [id number] ?? [id number] ? : 1975 ?Acct:[id number] ? Age/Sex: 49 / F ?ADM Date: 03/26/24 ? Loc: HO.XRAY ? Attending Dr: Jada Cervantes DATA WAREHOUSE CONSULTANT ? Ordering Physician: Jada Cervantes ?? Date of Service: 03/26/24 ?? Procedure(s): XR hip LT min 2V w/wo pel ?? Accession Number(s): [id number] ? cc: Jada Cervantes; Marian Crook MD [...] DD/ 1306 ? TD/TT: 03/29/24 1306 ? Staffing Consultant: ? Procedure Note Donotuseinterpreter, Image - 03/29/[address] [address] XRay Report Signed Patient: Yarelis Nielsen#: [id number] : 1975Acct:[id number] Age/Sex: 49 / FADM Date: 03/26/24 Loc: HO.BARBARA Attending Dr: Jada CLEMENT Ordering Physician: Jada Cervantes Date of Service: 03/26/24 Procedure(s): XR hip LT min 2V w/wo pel Accession Number(s): [id number] cc: Jada Cervantes; Marian Crook MD CLINICAL [...] 03/29/24 1307 DD/ 1306 TD/TT: 03/29/24 1306 Staffing Consultant: [facility] External Provider IMG XR PROCEDURES Edited Result - Final * Hepatitis C Ab (03/27/2024 10:19 AM EST) Hepatitis C Antibody Nonreactive Nonreactive [facility] Comment:Antibodies to HCV no t detected; does not exclude early acuteHCV infection. 03/27/2024 10:1 9 AM EST 03/27/2024 10:19 AM EST Generic External Data Provider LAB BLOOD ORDERAB LES Final Result [facility] [address] [place] [phone] * TSH with Reflex to Free T4 (03/27/2024 10:19 AM EST) TSH reflex Free T4 0.59 0.32 - 4.0 uIU/mL [facility] 03/27/2024 10:1 9 AM EST 03/27/2024 10:19 AM EST us Generic External Data Provider LAB BLOOD ORDERAB LES Final Result Performing Organization Address [facility] Co de Phone Number [facility] [address] [place] [phone] * (ABNORMAL) Iron And Total Iron Binding Capacity (03/27/2024 10:19 AM EST) Iron 298(H) 30 - 160 mcg/dL [facility] Total Iron Binding Capacity 323 228 - 428 mcg/dL [facility] Percent Iron Saturation 92(H) 15 - 50 % [facility] Unsaturated Iron Binding <25 ug/dL [facility] 03/27/2024 10:1 9 AM EST 03/27/2024 10:19 AM EST us Generic External Data Provider LAB BLOOD ORDERAB LES Final Result Performing Organization Address [facility] de Phone Number [facility] [address] [place] [phone] * Hepatitis A Antibody, Total (03/27/2024 10:19 AM EST) Hepatitis A Antibody IgG Nonreactive Nonreactive [facility] 03/27/2024 10:1 9 AM EST 03/27/2024 10:19 AM EST Generic External Data Provider LAB BLOOD ORDERAB LES Final Result Performing Organization Address [facility] Co de Phone Number [facility] [address] [place] [phone] * Tissue Transglutaminase Antibody, IgA (03/27/2024 10:19 AM EST) Transglutaminase IgA <1.0 U/mL [facility] Comment:Value Interpretation ----- <15.0 Antibody not detected> or = 15.0 Antibody detectedTHIS TEST WAS PERFORMED AT:[facility] [address] [id number] OLIVAS MD 03/27/2024 10:1 9 AM EST 03/27/2024 10:19 AM EST Generic External Data Provider LAB BLOOD ORDERAB LES Final Result Performing Organization Address [facility] Co de Phone Number [facility] [address] [place] [phone] * Hepatitis B surface antigen, EIA (03/27/2024 10:19 AM EST) Hepatitis B Surface Ag Negative Negative [facility] 03/27/2024 10:1 9 AM EST 03/27/2024 10:19 AM EST Generic External Data Provider LAB BLOOD ORDERAB LES Final Result Performing Organization Address [facility] Co de Phone Number [facility] [address] [place] [phone] * Hepatitis B Core Antibody, Total (03/27/2024 10:19 AM EST) Hepatitis B Core Antibody Nonreactive Nonreactive [facility] 03/27/2024 10:1 9 AM EST 03/27/2024 10:19 AM EST Generic External Data Provider LAB BLOOD ORDERAB LES Final Result Performing Organization Address [facility] Co de Phone Number [facility] [address] [place] [phone] * HIV-1/2 Antigen and Antibodies, Fourth Generation, with Reflexes (03/27/2024 10:19 AM EST) Pathologist [facility] [place] HIV AB/AG Nonreactive Nonreactive [facility] Comment:HIV-1 p24 Ag and/or HIV-1/HIV-2 Ab not detected.A test result that is nonreactive does not exclude thepossibility of exposure to or infection with HIV-1 and/orHIV-2. Nonreactive results in this assay for individualswith prior exposure to HIV-1 and/or HIV-2 may be due toantigen and antibody levels that are below the limit ofdetection of this assay.The [employer] HIV Ag/Ab Combo assay result andsupplemental assay results should be interpreted inconjunction with the patient's clinical presentation,history and other laboratory results. If the results areinconsistent with clinical evidence, additional testing issuggested to confirm the result. 03/27/2024 10:1 9 AM EST 03/27/2024 10:19 AM EST us Generic External Data Provider LAB BLOOD ORDERAB LES Final Result Performing Organization Address [facility]/ZIP Co de Phone Number [facility] [address] [place] [phone] * Hepatitis B Surface Antibody, Qualitative (03/27/2024 10:19 AM EST) Pathologist [facility] [place] ~Hepatitis B Surface Antibody REACTIVE Nonreactive [facility] Comment:REACTIVE: > 11.99 mI U/mL 03/27/2024 10:1 9 AM EST 03/27/2024 10:19 AM EST Generic External Data Provider LAB BLOOD ORDERAB LES Final Result Performing Organization Address [facility] Co de Phone Number [facility] [address] [place] [phone] * C-reactive Protein (03/27/2024 10:19 AM EST) C Reactive Protein <0.04 < or = 0.50 mg/dL [facility] 03/27/2024 10:1 9 AM EST 03/27/2024 10:19 AM EST us Generic External Data Provider LAB BLOOD ORDERAB LES Final Result Performing Organization Address [facility] Co de Phone Number [facility] [address] [place] [phone] * Immunoglobulin A (03/27/2024 10:19 AM EST) Immunoglobulin A 269 47 - 310 mg/dL [facility] Comment:THIS TEST WAS PERFOR MED AT:[facility] [place] [id number] OLIVAS MD 03/27/2024 10:1 9 AM EST 03/27/2024 10:19 AM EST us Generic External Data Provider LAB BLOOD ORDERAB LES Final Result Performing Organization Address [facility] Co de Phone Number [facility] [address] [place] [phone] * Ferritin (03/27/2024 10:19 AM EST) Ferritin 12 10 - 250 ng/mL [facility] 03/27/2024 10:1 9 AM EST 03/27/2024 10:19 AM EST Generic External Data Provider LAB BLOOD ORDERAB LES Final Result Performing Organization Address [facility] Co de Phone Number [facility] [address] [place] [phone] * MR Lumbar Spine w/o Contrast (03/04/2024 7:00 PM EST) Anatomical Region Laterality Modality Spine, L-spine Magnetic Resonan ce 03/04/2024 7:00 PM EST Narrative 03/29/2024 9:08 AM EST ? [facility] ?[address] ?[place] [address] ? Magnetic Resonance Report ? Signed ? Patient: Abrams James,Corina ?MR#: [id number] ?? [id number] ? : 1975 ?Acct:[id number] ? Age/Sex: 49 / F ?ADM Date: 03/04/24 ? Loc: HO.MRI ? Attending Dr: Claritza Leonard DO ? Ordering Physician: Claritza Leonard DO ?? Date of Service: 03/04/24 ?? Procedure(s): MR lumbar spine wo con ?? Accession Number(s): [id number] ? cc: [facility]; Claritza Leonard DO ? EXAMINATION: ?? MR LUMBAR SPINE WITHOUT CONTRAST ? CLINICAL INFORMATION: ?? Low back pain radiating to the left lower extremity with intermittent ?? paresthesia. ? COMPARISON: ?? None available. ? Correlated to x-ray dated September 12, 2023. ? TECHNIQUE: ?? MRI of the lumbar spine was obtained using routine sequences without ?? contrast. ? FINDINGS: ?? Submitted for interpretation on March 29, 2024. ? Last rib-bearing vertebra labeled T12 ?? No bone marrow STIR signal abnormality. ?? Multilevel marginal osteophyte formation and disc desiccation more ?? conspicuous at L3-4, L4-5 levels. ?? Grade 1 anterolisthesis L3-4 ?? Conus medullaris and said pedicle of L1 with normal signal. ? T12-L1: ?? No herniated disc. No neuroforamina stenosis. ? L1-2: ?? No herniated disc. No neuroforamina stenosis. ? L2-3: ?? No herniated disc. No neuroforamina stenosis. ? L3-4: ?? Grade 1 anterolisthesis. Broad-based disc bulging. Facet joint and ?? ligamentum flavum hypertrophy. Reduced AP diameter of the thecal sac ?? and the neural foramina more conspicuous on the left side. ? L4-5: ?? Left foraminal broad-based herniated disc resulting in left ?? neuroforamina narrowing likely encroaching the exiting nerve root. No ?? central spinal canal stenosis. Facet joint hypertrophy. 3 mm ?? hyperintense T2 signal within the medial right facet joint. ? L5-S1: ?? No herniated disc. No neuroforamina stenosis. ? No prevertebral compartment hematoma, mass or fluid collection. ?? Multifocal probably septated hyperintense T2 lesions within the left ?? renal hilum. No hydronephrosis. ?? There is a 6 cm hypointense T2 lesion within the uterus. ?? Trace amount of free fluid in the cul-de-sac. ? MR/MR lumbar spine wo con ?? IMPRESSION: ?? Grade 1 anterolisthesis L3-4 resulting and mild central spinal canal ?? stenosis and left neuroforamina and narrowing likely encroaching the ?? left L3 and probably L4 exiting nerve roots. ?? Left foraminal herniated disc L4-5 encroaching the left L4 and probably ?? left L5 exiting nerve roots. ?? Probable parapelvic renal cyst, left kidney. ?? Probable uterine fibroid. ? Electronically signed by: ??Valentino Guerra MD ??03/29/2024 09:05 AM ?? EST RP ? Dictated By: ?Valentino Cotter MD ? Signed By: ?<Electronically signed by Valentino Jones MD in OV> ? 03/29/24 09 ? DD/ 1900 ? TD/TT: 03/04/241919 ? Staffing Consultant: ? Procedure Note Bonita, Image - 03/29/2024 [place] [address] Magnetic Resonance Report Signed Patient: Yarelis Nielsen#: [id number] : 1975Acct:[id number] Age/Sex: 49 / FADM Date: 03/04/24 Loc: HO.MRI Attending Dr: Claritza Leonard DO Ordering Physician: Claritza Leonard DO Date of Service: 03/04/24 Procedure(s): MR lumbar spine wo con Accession Number(s): [id number] cc: [facility]; Jurcsak,Claritza A DO EXAMINATION: MR LUMBAR SPINE WITHOUT CONTRAST CLINICAL INFORMATION: Low back pain radiating to the left lower extremity with intermittent paresthesia. COMPARISON: None available. Correlated to x-ray dated September 12, 2023. TECHNIQUE: MRI of the lumbar spine was obtained using routine sequences without contrast. FINDINGS: Submitted for interpretation on March 29, 2024. Last rib-bearing vertebra labeled T12 No bone marrow STIR signal abnormality. Multilevel marginal osteophyte formation and disc desiccation more conspicuous at L3-4, L4-5 levels. Grade 1 anterolisthesis L3-4 Conus medullaris and said pedicle of L1 with normal signal. T12-L1: No herniated disc. No neuroforamina stenosis. L1-2: No herniated disc. No neuroforamina stenosis. L2-3: No herniated disc. No neuroforamina stenosis. L3-4: Grade 1 anterolisthesis. Broad-based disc bulging. Facet joint and ligamentum flavum hypertrophy. Reduced AP diameter of the thecal sac and the neural foramina more conspicuous on the left side. L4-5: Left foraminal broad-based herniated disc resulting in left neuroforamina narrowing likely encroaching the exiting nerve root. No central spinal canal stenosis. Facet joint hypertrophy. 3 mm hyperintense T2 signal within the medial right facet joint. L5-S1: No herniated disc. No neuroforamina stenosis. No prevertebral compartment hematoma, mass or fluid collection. Multifocal probably septated hyperintense T2 lesions within the left renal hilum. No hydronephrosis. There is a 6 cm hypointense T2 lesion within the uterus. Trace amount of free fluid in the cul-de-sac. MR/MR lumbar spine wo con IMPRESSION: Grade 1 anterolisthesis L3-4 resulting and mild central spinal canal stenosis and left neuroforamina and narrowing likely encroaching the left L3 and probably L4 exiting nerve roots. Left foraminal herniated disc L4-5 encroaching the left L4 and probably left L5 exiting nerve roots. Probable parapelvic renal cyst, left kidney. Probable uterine fibroid. Electronically signed by: Valentino Guerra MD 03/29/2024 09:05 AM EST Dictated By: Valentino Cotter MD Signed By: <Electronically signed by Meli Glaesr OV> 03/29/24904 DD/ 99 TD/TT: 03/04/241919 Staffing Consultant: Claritza Maeyashira DO IMG MRI PROCEDURES Edited Re sult - Final * Cologuard?? colon cancer screening (02/02/2024 9:15 AM EST) Cologuard Result Negative Negative 02/08/20 2:05 AM EST [facility] (CLIA #:[id number]) Comment: NEGATIVE TEST RESULT. A negative Cologuard result indicates a low likelihood that a colorectal cancer (CRC) or advanced adenoma (adenomatous polyps with more advanced pre-malignant features) ??is present. The chance that a person with a negative Cologuard test has a colorectal cancer is less than 1 in 1500 (negative predictive value >99.9%) or has an ??advanced adenoma is less than ??5.3% (negative predictive value 94.7%). These data are based on a prospective cross-sectional study of 10,000 individuals at average risk for colorectal cancer who were screened with both Cologuard and colonoscopy. (Isadora T. et al, N Engl J Med 2014;370(14):1286- 1297) The normal value (reference range) for this assay is negative. COLOGUARD RE-SCREENING RECOMMENDATION: Periodic colorectal cancer screening is an important part of preventive healthcare for asymptomatic individuals at average risk for colorectal cancer. ??Following a negative Cologuard result, the [place] [employer] and U.S. Multi-Society Task Force screening guidelines recommend a Cologuard re-screening interval of 3 years. References: [place] [employer] Guideline for Colorectal Cancer Screening: https://www.cancer.org/cancer/sukwm-xkgxvj-ybuuen/bdzfulxmw-amudignnm-aqhyubm/ac s-rec ommendations.html.; Hector ABERNATHY, Julio Cesar PEÑA, Janet QUEVEDO, Colorectal Cancer Screening: Recommendations for Physicians and Patients from the U.S. Multi-Society Task Force on Colorectal Cancer Screening , Am J Gastroenterology 2017; 112:9798-9245. TEST DESCRIPTION: Composite algorithmic analysis of stool DNA-biomarkers with hemoglobin immunoassay. ?? Quantitative values of individual biomarkers are not reportable and are not associated with individual biomarker result reference ranges. Cologuard is intended for colorectal cancer screening of adults of either sex, 45 years or older, who are at average-risk for colorectal cancer (CRC). Cologuard has been approved for use by the U.S. FDA. The performance of Cologuard was established in a cross sectional study of average-risk adults aged 50-84. Cologuard performance in patients ages 45 to 49 years was estimated by sub-group analysis of near-age groups. Colonoscopies performed for a positive result may find as the most clinically significant lesion: colorectal cancer [4.0%], advanced adenoma (including sessile serrated polyps greater than or equal to 1cm diameter) [20%] or non- advanced adenoma [31%]; or no colorectal neoplasia [45%]. These estimates are derived from a prospective cross-sectional screening study of 10,000 individuals at average risk for colorectal cancer who were screened with both Cologuard and colonoscopy. (Isadora Rodriguez al, N Engl J Med 2014;370(14):6089-7699.) Cologuard may produce a false negative or false positive result (no colorectal cancer or precancerous polyp present at colonoscopy follow up). A negative Cologuard test result does not guarantee the absence of CRC or advanced adenoma (pre-cancer). The current Cologuard screening interval is every 3 years. ([place] [employer] and U.S. Multi-Society Task Force). Cologuard performance data in a 10,000 patient pivotal study using colonoscopy as the reference method can be accessed at the following location: www.Weebly/results. Additional description of the Cologuard test process, warnings and precautions can be found at www.[employer].rd.com. Stool specimen (specimen) Rectal contents / Unknown 02/02/2024 9:15 AM EST 02/03/2024 10:52 AM EST us Marian Crook MD LAB MOLECULAR DIAGNOSTIC S ORDERABLES Final Result [facility] (CLIA #:[id number] [place] [address], * BI Mammogram Screening Tomosynthesis Bilateral (12/05/2023 3:30 PM EDT) Anatomical Region Laterality Modality Breast Bilateral Mammography 12/05/2023 3:30 PM EDT Narrative 12/19/2023 8:58 AM EDT ? [facility] [place] ? [address] ?[place] [address] ? Mammography Report ? Signed ? Patient: Corina Nielsen ?MR#: [id number] ?? [id number] ? : 1975 ?Acct:[id number] ? Age/Sex: 48 / F ?ADM Date: 12/05/23 ? Loc: HO.MAMMO ? Attending Dr: Marian Crook MD ? Ordering Physician: Marian Crook MD ?Results: 1Ne ?? gative ? Date of Service: 12/05/23 ?Follow Up: 1 Year From Orig ?? inal Mammogram ? Procedure(s): MM tomosynthesis screening BI ?? Accession Number(s): [id number] ? cc: Marina Crook MD ? EXAMINATION: ?? MM SCREENING DIGITAL BREAST TOMOSYNTHESIS, BILATERAL ? CLINICAL INFORMATION: ? Screening. Asymptomatic. ? COMPARISON: ?? Mammography: Comparison is made with available priors ? TECHNIQUE: ?? Digital breast mammography with tomosynthesis is performed in both the ?? craniocaudal and mediolateral oblique views along with computer-aided ?? detection (CAD). ? FINDINGS: ?? There are scattered areas of fibroglandular density (ACR BI-RADS breast ?? composition Category b). ? There are no significant masses, abnormal calcifications, or other ?? abnormalities. ? MM/MM tomosynthesis screening BI ?? IMPRESSION: ?? No mammographic evidence of malignancy. ? ASSESSMENT: ? BI-RADS BI-RADS 1 - Negative ? RECOMMENDATION: ?? Routine annual mammography screening. ? 1 year F/U ? This examination should not preclude the clinical evaluation of a ?? suspicious palpable abnormality. ? This patient's information was entered into a reminder system with a ?? target due date for their next mammogram. ? Electronically signed by: ??Mini Yap DO ??12/19/2023 08:55 AM EDT ? Dictated By: ?Mini Yap DO ? Signed By: ?<Electronically signed by Mini Yap, DO in OV> ? 12/19/23 0855 ? DD/ 1530 ? TD/TT: 12/05/23 1540 ? Staffing Consultant: ? Procedure Note Bonita, Image [facility] [address] [place] [address] Mammography Report Signed Patient: Baljit NielsenJustina#: [id number] : 1975Acct:[id number] Age/Sex: 48 / FADM Date: 12/05/23 Loc: ILDA Attending Dr: Marian Crook MD Ordering Physician: Marian Crookesults: 1Ne gative Date of Service: 12/05/23Follow Up: 1 Year From Orig inal Mammogram Procedure(s): MM tomosynthesis screening BI Accession Number(s): [id number] cc: Marian Crook MD EXAMINATION: MM SCREENING DIGITAL BREAST TOMOSYNTHESIS, BILATERAL CLINICAL INFORMATION: Screening. Asymptomatic. COMPARISON: Mammography: Comparison is made with available priors TECHNIQUE: Digital breast mammography with tomosynthesis is performed in both the craniocaudal and mediolateral oblique views along with computer-aided detection (CAD). FINDINGS: There are scattered areas of fibroglandular density (ACR BI-RADS breast composition Category b). There are no significant masses, abnormal calcifications, or other abnormalities. MM/MM tomosynthesis screening BI IMPRESSION: No mammographic evidence of malignancy. ASSESSMENT: BI-RADS BI-RADS 1 - Negative RECOMMENDATION: Routine annual mammography screening. 1 year F/U This examination should not preclude the clinical evaluation of a suspicious palpable abnormality. This patient's information was entered into a reminder system with a target due date for their next mammogram. Electronically signed by: Mini Yap DO 12/19/2023 08:55 AM EDT RP Dictated By: Mini Yap DO Signed By: <Electronically signed by Mini Yap DO in OV> 12/19/23 0855 DD/ 1530 TD/TT: 12/05/23 1540 Staffing Consultant: Marian Crook MD IMG BI PROCEDURES Final Result * THINPREP TIS PAP (06/06/2020 2:03 PM EDT) Clinical Information: None given [facility] COMMENT SEE COMMENT [facility] Comment: EXPLANATORY NOTE: ? The Pap is a screening test for cervical cancer. It is ?? not a diagnostic test and is subject to false negative ?? and false positive results. It is most reliable when a ?? satisfactory sample, regularly obtained, is submitted ?? with relevant clinical findings and history, and when ?? the Pap result is evaluated along with historic and ?? current clinical information. ?? COMMENT: This Pap test has been evaluated with computer assisted technology. [facility] Desk Operator : SEE COMMENT [facility] Comment: ALS, CT(ASCP) CT screening location: [address] ??[address] Infection Fungal organisms morphologically consistent with Thais spp. [facility] Interpretation/R esult: Negative for intraepithelial lesion or malignancy. [facility] LMP: NONE GIVEN [facility] Prev. BX: NONE [facility]IVEN [facility] Prev. PAP: NONE GIVEN [facility] SOURCE: None given [facility] Statement Of Adequacy: SEE COMMENT [facility] Comment: Satisfactory for evaluation. Endocervical/transformation zone component present. Age and/or menstrual status not provided 06/06/2020 2:03 PM EDT us Mattie Farr MD LAB PATHOLOGY ORDERABLES Sophie l Result Performing Organization Address [facility] Co de Phone Number [facility] [address] * HPV mRNA E6/E7 (06/06/2020 2:03 PM EDT) HPV nRNA E6/E7 Not Detected Not Detected [facility] Comment: Methodology: Vehicle Operator Technician-Mediated Amplification This assay detects E6/E7 viral messenger RNA (mRNA) from 14 high-risk HPV types (16,18,31,33,35,39,45,51,52,56,58,59,66,68). ? The analytical performance characteristics of this assay have been determined by [employer] The modifications have not been cleared or approved by the FDA. This assay has been validated pursuant to the CLIA regulations and is used for clinical purposes. ?? For additional information, please refer to http://education.[employer]/faq/DUN833e5 (This link if provided for information/ educational purposes only.) 06/06/2020 2:03 PM EDT us Mattie Farr MD LAB BLOOD ORDERABLES Final Re sult Performing Organization Address [facility] Co de Phone Number [facility] [address] from Last 3 Months or Most Recently Relevant to Health Maintenance Insurance [facility] [employer] C3 Care Teams Teletypist Relationship Specialty Start Date End Date Marian Crook MD [address] [place] [address] PCP - General Internal Medicine 09/12/23
--- OUTSIDE RECORDS SUMMARY | 2024-04-15 06:20 | XMS_ITS | Encounter Summary ---
Author Organization [employer] Address [address] [facility] 7[address] [place] [address] Care Team Providers Care Online Content Developer Name Role Phone Marian Crook MD Primary Care Provider + Encounter Details Date Type Department Care Team (Late st Contact Info) Description 03/27/2024 Orders Only GENERIC EXTERNAL DATA DEPARTMENT Provider, Generic External Data Social History Tobacco Use Types Packs/Day Years [...] Procedure Name Priority Date/Time Associated Diagnosis Comments TISSUE TRANSGLUTAMINASE AB, IGA Routine 03/27/2024 10:19 AM EST documented in this encounter Results * Tissue Transglutaminase Antibody, IgA (03/27/2024 10:19 AM EST) Transglutaminase IgA <1.0 U/mL [facility] Comment:Value Interpretation ----- <15.0 Antibody not detected> or = 15.0 Antibody detectedTHIS TEST WAS PERFORMED AT:[facility] [address] [id number] OLIVAS MD 03/27/2024 10:1 9 AM EST 03/27/2024 10:19 AM EST us Generic External Data Provider LAB BLOOD ORDERAB LES Final Result [facility] [address] [place] [address] [phone] documented in this encounter Visit Diagnoses Not on filedocumented in this encounter Additional Health Concerns Assessment Noted Time PHQ-9 Depression Total Score: 22 024 2:02 PM EDT documented as of this encounter Care Teams Online Content Developer Relationship Specialty Start Date End Date Marian Crook MD [address] [place] [id number] PCP - General Internal Medicine 09/12/23 documented as of this encounter
--- OUTSIDE RECORDS SUMMARY | 2024-04-15 06:20 | XMS_ITS | Encounter Summary ---
Author Organization [employer] Address [address] [facility] [address] [place] [address] Care Team Providers Care Sales And Marketing Manager Name Role Phone Marian Crook MD Primary Care Provider + Reason for Visit * Reason Onset Date Comments Call Back Requested 03/30/2024 Encounter Details Date Type Department Care Team ([facility] st Contact Info) Description 03/30/2024 Telephone [facility] MEDICINE [address] [place] [address] Marian Crook MD [address] [place] [address] Call Back Requested Social History Tobacco Use Types Packs/Day Years [...] encounter Miscellaneous Notes * Telephone Encounter - Ale Lopes - 03/30/2024 8:49 AM EST TC from pt in regards MRI results. * Telephone Encounter - Lina Yarbrough RN - 03/30/2024 8:39 AM EST TC placed to patient [phone] in regards to below message. Patient did not answer, RN left requesting CB to red team nurses. If patient returns call, please advise patient blood work was ordered by [facility] and she should call [phone] for her results * Telephone Encounter - Ale Lopes - 03/30/2024 8:12 AM EST Tc from pt requesting call back in regard lab results. [phone] documented in this encounter Plan of Treatment Not on file documented as of this encounter Visit Diagnoses Not on filedocumented in this encounter Additional Health Concerns Assessment Noted Time PHQ-9 Depression Total Score: 22 024 2:02 PM EDT documented as of this encounter Care Teams Sales And Marketing Manager Relationship Specialty Start Date End Date Marian Crook MD [address] [place] [address] PCP - General Internal Medicine 09/12/23 documented as of this encounter
--- OUTSIDE RECORDS SUMMARY | 2024-04-15 06:20 | XMS_ITS | Encounter Summary ---
Author Organization [employer] Address [address] [place] [address] 7[address] [place] [address] Care Team Providers Care Residential Property Manager Name Role Phone [facility] Primary Care Provider [phone] Marian Crook MD Primary Care Provider + Reason for Visit * Reason Onset Date Comments Nurse Triage 11/18/2022 Encounter Details Date Type Department Care Team (Late st Contact Info) Description 11/18/2022 Telephone [facility]INE [address] [place] [address] [facility] [address] [place] [address] Nurse Triage Social History Tobacco Use Types Packs/Day Years Used Date Smoking Tobacco: Never Smokeless Tobacco: Never Depression Answer Date Recorded Patient Health Questionnaire-9 [...] encounter Miscellaneous Notes * Telephone Encounter - Isis Arango RN - 11/18/2022 12:52 PM EDT Triage call Pt reports no period since the middle of August 2022. Pt reports not using control , is not possible . Pt reports very dry vaginal area making intercourse painful. [address] [place] 12/06/22 @ 330pm. Insurance is verified as active prior to booking. Protocol Used: Menstrual Period - Missed or Late (Adult) Protocol-Based Disposition: See in Office or Video Visit within 2 Weeks Positive Triage Question: * Missed 2 or more periods in a row * All higher-acuity triage questions were negative Care Advice Discussed: * Menstrual Periods and Stress * Reasons To Call Back - Miss 2 periods or more - You need help coping with stress - New symptoms suggest (e.g., morning sickness, breast tenderness/swelling) - Positive test - You have any other serious symptoms * Telephone Encounter - Anusha Harper - 11/18/2022 11:56 AM EDT Symptom: Menstrual Periods Absent or Missed Outcome: Schedule an appointment to be seen within 24 hours Reason: This is the only possible outcome for this symptom The caller accepted this outcome documented in this encounter Plan of Treatment Not on file documented as of this encounter Visit Diagnoses Not on filedocumented in this encounter Additional Health Concerns Assessment Noted Time PHQ-9 Depression Total Score: 16 06/18/ 023 3:25 PM EDT documented as of this encounter Care Teams Residential Property Manager Relationship Specialty Start Date End Date RaymondAlisha nava FNP [address] [place] [address] PCP - General Family Medicine 11/14/21 09/11/23 Marian Crook MD [address] [place] [address] PCP - General Internal Medicine 09/12/23 documented as of this encounter
== END 2024-04-15 06:18 | disposition home or self-care (01) ==
LOC: CF 06:17
PROVIDERS: Visit Provider Internal Medicine
DX: M53.3 Sacrococcygeal disorders, not elsewhere classified (principal)
CPT/HCPCS: 27096; J2003; J2795

== ENCOUNTER 2024-04-15 08:55 | Outpatient (REF) | payer MEDICAID, SELFPAY ==
[2024-04-15 10:17] LABS: Iron 74 mcg/dL (30-160); Percent Iron Saturation 26 % (15-50); Total Iron Binding Capacity 287 mcg/dL (228-428); Unsaturated Iron Binding 213 ug/dL
[2024-04-15 10:24] LABS: Ferritin 9 ng/mL (10-250)
[2024-04-15 10:37] LABS: Folate 11.2 ng/mL (> or = 4.0); Vitamin B12 663 pg/mL (200-900)
== END 2024-04-15 08:56 | disposition home or self-care (01) ==
LOC: HO.LAB 08:55
PROVIDERS: Visit Provider Internal Medicine
DX: E83.19 Other disorders of iron metabolism (principal); R79.89 Other specified abnormal findings of blood chemistry; E61.1 Iron deficiency
CPT/HCPCS: 36415; 81256; 82607; 82728; 82746; 83540; J2003; J2795

== ENCOUNTER 2024-04-15 09:23 | Outpatient (AMB) | payer MEDICAID, SELFPAY ==
--- NOTE | 2024-04-15 09:46 | MHC.OFFVIS ---
Vital Signs 04/15/24 09:47 Height 5 ft 4 in Weight 165 lb BMI 28.3 BP 94/62 Blood Pressure Location Lt brachial Position Sitting Pulse 72 Pulse Source Pulse Oximeter Pulse Oximetry (%) 96 Oxygen Delivery Method Room Air Intake Visit Reasons: Left Dx SIJ inj Employee Communications Coordinator Required: No Allergies No Known Allergies [No Known Allergies*] Allergy (Verified 04/15/24 09:46) Medication List - Last Reconciled 04/15/24 by Armida Weeks, [employer] albuterol sulfate 1 vial inhalation Q4H PRN cholecalciferol (vitamin D3) (Vitamin D3) 50 mcg PO DAILY ferrous sulfate 325 mg PO Q OTHER DAY lidocaine 5% 1 patch topical DAILY montelukast 10 mg PO QAM peg 3350-electrolytes 236-22.74-6.74 -5.86 gram (Golytely) 240 mL PO Q10M Is last menstrual period known: Yes Last menstrual period: 04/13/24 HPI HPI Left Dx SIJ inj: Details: Patient presents for scheduled procedure. Denies any recent cough, cold, infection, fever or other significant changes in medical history since last office visit. [facility] Medical History (Updated 03/26/24 @ 16:12 by RACQUEL Pike) Depression Anal fissure Hemorrhoids Chronic RLQ pain Polyuria Dizziness FILIBERTO (obstructive sleep apnea) Moderate persistent asthma in adult without complication Chronic low back pain Iron deficiency Arthritis History of asthma Surgical History (Updated 03/26/24 @ 15:50 by RACQUEL Pike) S/P laparoscopic sleeve gastrectomy H/O abdominoplasty Family History Mother History of hypertension Arthritis Glaucoma Father Heart problem History of hypertension Brother Heart problem History of hypertension Sister History of hypertension Brother No problems noted. Brother No problems noted. Brother No problems noted. Brother No problems noted. Sister No problems noted. Sister No problems noted. Sister No problems noted. Social History Household Members: Spouse and Children Housing: House Alcohol intake: current Alcohol intake frequency: holidays/special occasions only Patient Tobacco Use Status: Never used Tobacco service: No Current occupational status: employed Female Reproductive History Menstrual Date of last menstrual period: 04/13/24 Physical Exam Vital Signs: Last Vital Signs Pulse 72 04/15/24 09:47 BP 94/62 04/15/24 09:47 Pulse Ox 96 04/15/24 09:47 Oxygen Delivery Method Room Air 04/15/24 09:47 BMI result Body Mass Index 28.3 Office Procedures AMB Joint Injection/Aspiration Joint Injection/Aspiration Details: Diagnostic Sacroiliac Joint Injection, Left The procedure, its benefits, and its risks were explained and written informed consent was obtained from the patient. Immediately prior to starting the procedure, a time-out safety check was conducted. The patient's identification, procedure name, procedure site, and procedure laterality were confirmed with the patient. ? Patient was placed prone on the fluoroscopy table and the lumbosacral area was prepped using ChloraPrep and draped with sterile drapein standard fashion. The C-arm was rotated in a contralateral oblique fashion until the medial border of the iliac crest no longer foreshadowed the posterior sacroiliac joint line. The skin and subcutaneous tissue was anesthetized using 1 mL of 0.75% plain lidocaine with 1.5-inch 25-gauge needle in the middle region of the joint line.? A 3.5-inch 22-gauge spinal needle with small bend on the tip was slowly advanced towards the joint line, coaxial to the x-ray beam. Once bony content was obtained, the needle was easily slid into the intra-articular space.? Intra-articular needle position was confirmed using lateral fluoroscopy.? A total volume of 2.5mL of solution containing 0.5% of ropivacaine was injected intra-articularly. The stylet was reinserted and needle was removed. The patient tolerated the procedure well. Patient denied any lower extremity weakness or numbness. Patient was observed for 30 min and was discharged after fulfilling the standard discharge criteria. Coding 05955 - Sacroiliac Procedure code (CPT) selection complete Assessment & Plan Assessment & Plan (1) Sacroiliac joint pain: Code(s): M53.3 - Sacrococcygeal disorders, not elsewhere classified Category: Medical Plan Patient is status post diagnostic left sacroiliac joint injection. Patient tolerated procedure well and was discharged home in stable condition with discharge instructions. All questions were answered. We will follow-up via telephone or in clinic to assess response to therapy. A follow-up appointment was made during today's visit. Orders: Orders FL guidance in treatment room Today M53.3 - Sacrococcygeal disorders, not elsewhere classified Coding Level of Care Code Procedure Only Diagnoses Sacroiliac joint pain M53.3 CPT Codes Coding - Joint 9: 15962 - Sacroiliac ([id number])
[2024-04-15 09:47] VITALS: BP 94/62; PULSE 72; O2SAT 96; BMI 28.3
== END 2024-04-15 10:32 | disposition home or self-care (01) ==
LOC: HO.PMCPRC 09:23
PROVIDERS: Visit Provider Internal Medicine
DX: M53.3 Sacrococcygeal disorders, not elsewhere classified (principal)
CPT/HCPCS: 27096

== ENCOUNTER 2024-04-20 14:53 | Outpatient (REF) | payer MEDICAID, SELFPAY ==
--- NOTE | ~2024-04-20 | US_ITS ---
EXAMINATION: US PELVIS CLINICAL INFORMATION: Probable uterine fibroids. COMPARISON: December 28, 2012 TECHNIQUE: Ultrasound of the pelvis is performed using both transabdominal and transvaginal transducers along with Doppler. Transvaginal imaging is performed due to inadequate visualization transabdominally. FINDINGS: Uterus: The uterus is anteverted and measures 9 x 5 x 7 cm. Volume is 164 cc. The cervix measures 3 cm. The double wall endometrial thickness is 2 mm. There is a 5 cm heterogeneous soft tissue lesion in the anterior body of the uterus. There is a 1.2 cm heterogeneous soft tissue lesion in the posterior body of the myometrium. Adnexa: Both ovaries are visualized. There is normal color flow to the adnexa. There is no ovarian torsion. There is no pelvic ascites or fluid collection. Right ovary measures 3 x 1 x 3 cm. Volume is 6 cc. There is a 2.4 cm anechoic lesion without flow on color Doppler interrogation. Left ovary measures 4 x 3 x 4 cm. Volume is 22 cc. There is a 2.4 cm anechoic structure without flow on color Doppler interrogation. US/US pelvic and transvaginal IMPRESSION: Uterine fibroids, largest 5 cm. No ovarian torsion. Probable dominant follicles both ovaries. Electronically signed by: Valentino Guerra MD 04/21/2024 09:26 AM EST
--- NOTE | ~2024-04-20 | US_ITS ---
CLINICAL HISTORY: probable L parepelvic renal cyst on MRI L-spine for eval US Renal Comparison: None Findings: Right kidney normal size and echotexture, 9.6 cm length. 1.3 cm peripelvic cyst, upper pole. Left kidney normal size and echotexture, 10.2 cm length. Multiple peripelvic cysts. Questionable collecting system fullness. Normal color Doppler. IMPRESSION: There are peripelvic cysts bilaterally. This somewhat limits interpretation for hydronephrosis. There is questionable fullness of the left-sided collecting system. This document has been electronically signed by: Samy Jorgensen MD on 04/21/2024 12:04:08
--- OUTSIDE RECORDS SUMMARY | 2024-04-20 15:50 | XMS_ITS | Encounter Summary ---
Author Organization [employer] Address [address] [place] [address] 7[address] [place] [address] Care Team Providers Care Guest Services Coordinator Name Role Phone [facility] Primary Care Provider [phone] Marian Crook MD Primary Care Provider + Reason for Visit * Reason Onset Date Comments Nurse Triage 11/18/2022 Encounter Details Date Type Department Care Team (Late st Contact Info) Description 11/18/2022 Telephone [facility] [address] [place] [address] [facility] [address] [place] [address] Nurse Triage Social History Tobacco Use Types [...] documented as of this encounter Care Teams Guest Services Coordinator Relationship Specialty Start Date End Date ArlingtonAlisha nava FNP [address] [place] [address] PCP - General Family Medicine 11/14/21 09/11/23 Marian Crook MD [address] [place] [address] PCP - General Internal Medicine 09/12/23 documented as of this encounter
--- OUTSIDE RECORDS SUMMARY | 2024-04-20 15:50 | XMS_ITS | Encounter Summary ---
Author Organization [employer] Address [address] [facility] 7t [place] [address] Care Team Providers Care Preschool Adviser Name Role Phone Marian Crook MD Primary Care Provider + Reason for Visit * Reason Onset Date Comments Stable Imaging Letter 03/30/2024 Encounter Details Date Type Department Care Team ([facility] st Contact Info) Description 03/30/2024 Telephone [facility] MEDICINE [address] [place] [address] Marian Crook MD 230 [place] [address] Stable Imaging Letter Social History Tobacco Use [...] documented as of this encounter Care Teams Preschool Adviser Relationship Specialty Start Date End Date Marian Crook MD [address] [place] [address] PCP - General Internal Medicine 09/12/23 documented as of this encounter
--- OUTSIDE RECORDS SUMMARY | 2024-04-20 15:50 | XMS_ITS | Encounter Summary ---
Author Organization [employer] Address [address] [facility] 7t [place] [address] Care Team Providers Care Spa Experience Coordinator Name Role Phone Marian Crook MD Primary Care Provider + Reason for Visit * Reason Onset Date Comments Med Refill 03/25/2024 Encounter Details Date Type Department Care Team (Late st Contact Info) Description 03/25/2024 Refill [facility] MEDICINE [address] [place] [address] Marian Crook MD 230 [place] [address] Social History Tobacco Use Types Packs/Day Years [...] documented as of this encounter Care Teams Spa Experience Coordinator Relationship Specialty Start Date End Date Marian Crook MD [address] [place] [address] PCP - General Internal Medicine 09/12/23 documented as of this encounter
--- OUTSIDE RECORDS SUMMARY | 2024-04-20 15:50 | XMS_ITS | Encounter Summary ---
Author Organization [employer] Address [address] [facility] [address] 7t [place] [address] Care Team Providers Care Inside Sales Manager Name Role Phone Marian Crook MD Primary Care Provider + Encounter Details Date Type Department Care Team ([facility] st Contact Info) Description 03/22/2024 Telephone [facility] 230 [place], [place] [phone] Claritza Leonard DO 230 [place], [place] [phone] Social History Tobacco Use Types Packs/Day Years [...] documented as of this encounter Care Teams Inside Sales Manager Relationship Specialty Start Date End Date Marian Crook MD [address] [place] [phone] PCP - General Internal Medicine 09/12/23 documented as of this encounter
--- OUTSIDE RECORDS SUMMARY | 2024-04-20 15:50 | XMS_ITS | Encounter Summary ---
Author Organization [employer] Address [address] [facility] 7t [place] [address] Care Team Providers Care Inspector Process Name Role Phone Marian Crook MD Primary Care Provider + Reason for Visit * Reason Onset Date Comments Med Refill 03/25/2024 Encounter Details Date Type Department Care Team ([facility] st Contact Info) Description 03/25/2024 Refill [facility] MEDICINE 230 [place] [address] Marian Crook MD 230 [place] [address] Moderate persistent asthma without complication Social History [...] documented as of this encounter Care Teams Inspector Process Relationship Specialty Start Date End Date Marian Crook MD [address] [place] [address] PCP - General Internal Medicine 09/12/23 documented as of this encounter
--- OUTSIDE RECORDS SUMMARY | 2024-04-20 15:50 | XMS_ITS | Encounter Summary ---
Author Organization [employer] Address [address] [facility] 7t [place] [address] Care Team Providers Care Shot Blaster Name Role Phone Marian Crook MD Primary Care Provider + Reason for Visit * Reason Comments Med Refill Encounter Details Date Type Department Care Team ([facility] st Contact Info) Description 04/13/2024 Refill [facility] MEDICINE 230 [place], [place] [phone] Marian Crook MD 230 [place], [place] [phone] Social History Tobacco Use Types Packs/Day Years [...] documented as of this encounter Care Teams Shot Blaster Relationship Specialty Start Date End Date Marian Crook MD [address] [place] [phone] PCP - General Internal Medicine 09/12/23 documented as of this encounter
--- OUTSIDE RECORDS SUMMARY | 2024-04-20 15:50 | XMS_ITS | Encounter Summary ---
Author Organization [employer] Address [address] [facility] 7t [place] [address] Care Team Providers Care Plastics Bench Mechanic Name Role Phone Marian Crook MD Primary Care Provider + Reason for Visit * Reason Onset Date Comments Call Back Requested 03/30/2024 Encounter Details Date Type Department Care Team ([facility] st Contact Info) Description 03/30/2024 Telephone [facility] MEDICINE [address] [place] [address] Marian Crook MD [address] [place] [address] Call Back Requested Social History Tobacco Use [...] 8:39 AM EST TC placed to patient [phone] in regards to below message. Patient did not answer, RN left requesting CB to red team nurses. If patient returns call, please advise patient blood work was ordered by Dr. Gaston[facility] and she should call [phone] for her results * Telephone Encounter - Ale Lopes - 03/30/2024 8:12 AM EST Tc from pt requesting call back in regard lab results. [phone] documented in this encounter Plan of Treatment Not on file documented as of this encounter Visit Diagnoses Not on filedocumented in this encounter Additional Health Concerns Assessment Noted Time PHQ-9 Depression Total Score: 22 024 2:02 PM EDT documented as of this encounter Care Teams Plastics Bench Mechanic Relationship Specialty Start Date End Date Marian Crook MD [address] [place] [phone] PCP - General Internal Medicine 09/12/23 documented as of this encounter
--- OUTSIDE RECORDS SUMMARY | 2024-04-20 15:50 | XMS_ITS | Encounter Summary ---
Author Organization [employer] Address [address] [facility] 7t [place] [address] Care Team Providers Care Professor Of Sociology Name Role Phone Marian Crook MD Primary [...] 10:19 AM EST) Transglutaminase IgA <1.0 U/mL [facility] Comment:Value Interpretation ----- <15.0 Antibody not detected> or = 15.0 Antibody detectedTHIS TEST WAS PERFORMED AT:[facility] [address] [id number] OLIVAS MD 03/27/2024 10:1 9 AM EST 03/27/2024 10:19 AM EST us Generic External Data Provider LAB BLOOD ORDERAB LES Final Result [facility] [address] [place] [address] [phone] documented in this encounter Visit Diagnoses Not on filedocumented in this encounter Additional Health Concerns Assessment Noted Time PHQ-9 Depression Total Score: 22 024 2:02 PM EDT documented as of this encounter Care Teams Professor Of Sociology Relationship Specialty Start Date End Date Marian Crook MD [address] [place] [address] PCP - General Internal Medicine 09/12/23 documented as of this encounter
--- OUTSIDE RECORDS SUMMARY | 2024-04-20 15:50 | XMS_ITS | Encounter Summary ---
Author Organization [employer] Address [address] [facility] [address] 7[address] [place] [address] Care Team Providers Care Equipment Validation Specialist Name Role Phone Marian Crook MD Primary Care Provider + Encounter Details Date Type Department Care Team (Late st Contact Info) Description 03/26/2024 Orders Only [facility] External Provider, [facility] Social History Tobacco Use Types Packs/Day Years [...] EST Narrative 03/29/2024 1:08 PM EST ? [facility] ?[address] ?[place] [address] ?XRay Report ? Signed ? Patient: Abrams James,Corina ?MR#: [id number] ?? [id number] ? : 1975 ?Acct:[id number] ? Age/Sex: 49 / F ?ADM Date: 01/03/25 ? Loc: HO.XRAY ? Attending Dr: Jada CLEMENT ? Ordering Physician: Jada Cervantes ?? Date of Service: 03/26/24 ?? Procedure(s): XR hip LT min 2V w/wo pel ?? Accession Number(s): [id number] ? cc: Jada Cervantes; Marian Crook MD [...] DD/ 1306 ? TD/TT: 03/29/24 1306 ? Type Soldering Machine Tender: ? Procedure Note Donpakyleter, Image - 03/29/2024 [place] [address] XRay Report Signed Patient: Yarelis Nielsen#: [id number] : 1975Acct:[id number] Age/Sex: 49 / FADM Date: 03/26/24 Loc: [facility] Attending Dr: Jada CLEMENT Ordering Physician: Jada Cervantes Date of Service: 03/26/24 Procedure(s): XR hip LT min 2V w/wo pel Accession Number(s): [id number] cc: Jada Cervantes; Marian Crook MD CLINICAL [...] 03/29/24 1307 DD/ 1306 TD/TT: 03/29/24 1306 Type Soldering Machine Tender: [facility] External Provider IMG XR PROCEDURES Edited Result - Final documented in this encounter Visit Diagnoses Not on filedocumented in this encounter Additional Health Concerns Assessment Noted Time PHQ-9 Depression Total Score: 22 024 2:02 PM EDT documented as of this encounter Care Teams Equipment Validation Specialist Relationship Specialty Start Date End Date Marian Crook MD [address] [place] [address] PCP - General Internal Medicine 09/12/23 documented as of this encounter
--- OUTSIDE RECORDS SUMMARY | 2024-04-20 15:50 | XMS_ITS | Clinical Summary ---
Author Organization [employer] Address [address] [place] [address] 7t [place] [address] Care Team Providers Care Event Planning Intern Name Role Phone Marian Crook MD Primary [...] for this letter, she has appt with [facility] next week. I told her to reach out to junior legal secretary to help her write a letter so that housing give her some more time to get the letter from MH provider. She will res tart Effexor for anxiety and fu with me in 6m Encounters Date Type Department Care Team Description 04/13/2024 Refill [facility] [address] [place] [address] Marian Crook MD 04/09/2024 Orders Only [facility] [address] [facility] [place] [address] Claritza [place] DO Abnormal MRI, lumbar spine (Primary Dx) 03/30/2024 Telephone [facility] [address] [facility] [place] [address] Marian Croko MD Results 03/30/2024 Telephone [facility] 230 [facility] [place] [address] Marian Crook MD Stable Imaging Letter 03/30/2024 Telephone [facility] 230 [facility] [place] [address] Marian Crook MD Call Back Requested 03/27/2024 Orders Only GENERIC EXTERNAL DATA DEPARTMENT Provider, Generic External Data 03/26/2024 Orders Only [facility] External Provider, [facility] 03/25/2024 Refill [facility] 230 [facility] [place] [address] Marian Crook MD Moderate persistent asthma without complication 03/25/2024 Refill [facility] 230 [place] [address] Marian Crook MD 03/25/2024 Refill [facility] [address] [place] [address] Claritza [place], DO 03/25/2024 Refill [facility] 230 [facility] [place] [address] Claritza [place], DO 03/22/2024 Telephone [facility] [address] [place] [address] Claritza Leonard, DO 03/19/2024 Telephone [facility] [address] [place] [address] Marian Crook MD Results 03/05/2024 Refill [facility] [address] [place] [address] Claritza [place], DO 03/01/2024 Telephone [facility] [address] [place] [address] Marian Crook MD Nurse Triage 02/26/2024 12:00 PM EST Office Visit [facility] 230 [facility] [place] [address] Claritza Leonadr, DO Folliculitis (Primary Dx); Chronic bilateral low back pain with left-sided sciatica 02/26/2024 Travel 02/26/2024 Telephone [facility] 230 [facility] [place] [address] Marian Crook MD Nurse Triage 02/24/2024 Refill [facility] [address] [place] [address] Marian Crook MD 02/01/2024 Refill [facility] [address] [place] [address] Marian Crook MD from Last 3 Months [...] EST Narrative 03/29/2024 1:08 PM EST ? [facility] ?[address] ?[place] [address] ?XRay Report ? Signed ? Patient: Corina Nielsen ?MR#: [id number] ?? [id number] ? : 1975 ?Acct:[id number] ? Age/Sex: 49 / F ?ADM Date: 03/26/24 ? Loc: HO.XRAY ? Attending Dr: Jada Cervantes WIRE SPLICER ? Ordering Physician: Jada Cervantes ?? Date of Service: 03/26/24 ?? Procedure(s): XR hip LT min 2V w/wo pel ?? Accession Number(s): [id number] ? cc: Jada Cervantes; Marian Crook MD [...] DD/ 1306 ? TD/TT: 03/29/24 1306 ? Compact Assembler: ? Procedure Note Donotuseinterpreter, Image - 03/29/[address] [address] XRay Report Signed Patient: Yarelis Nielsen#: [id number] : 1975Acct:[id number] Age/Sex: 49 / FADM Date: 03/26/24 Loc: HO.BARBARA Attending Dr: Jada CLEMENT Ordering Physician: Jada Cervantes Date of Service: 03/26/24 Procedure(s): XR hip LT min 2V w/wo pel Accession Number(s): [id number] cc: Jada Cervantes; Marian Crook MD CLINICAL [...] 03/29/24 1307 DD/ 1306 TD/TT: 03/29/24 1306 Compact Assembler: [facility] External Provider IMG XR PROCEDURES Edited Result - Final * Hepatitis C Ab (03/27/2024 10:19 AM EST) Hepatitis C Antibody Nonreactive Nonreactive [facility] Comment:Antibodies to HCV no t detected; does not exclude early acuteHCV infection. 03/27/2024 10:1 9 AM EST 03/27/2024 10:19 AM EST Generic External Data Provider LAB BLOOD ORDERAB LES Final Result [facility] [address] [place] [phone] * TSH with Reflex to Free T4 (03/27/2024 10:19 AM EST) TSH reflex Free T4 0.59 0.32 - 4.0 uIU/mL [facility] 03/27/2024 10:1 9 AM EST 03/27/2024 10:19 AM EST us Generic External Data Provider LAB BLOOD ORDERAB LES Final Result Performing Organization Address [facility] Co de Phone Number [facility] [address] [place] [phone] * (ABNORMAL) Iron And Total Iron Binding Capacity (03/27/2024 10:19 AM EST) Iron 298(H) 30 - 160 mcg/dL [facility] Total Iron Binding Capacity 323 228 - 428 mcg/dL [facility] Percent Iron Saturation 92(H) 15 - 50 % [facility] Unsaturated Iron Binding <25 ug/dL [facility] 03/27/2024 10:1 9 AM EST 03/27/2024 10:19 AM EST us Generic External Data Provider LAB BLOOD ORDERAB LES Final Result Performing Organization Address [facility] de Phone Number [facility] [address] [place] [phone] * Hepatitis A Antibody, Total (03/27/2024 10:19 AM EST) Hepatitis A Antibody IgG Nonreactive Nonreactive [facility] 03/27/2024 10:1 9 AM EST 03/27/2024 10:19 AM EST Generic External Data Provider LAB BLOOD ORDERAB LES Final Result Performing Organization Address [facility] Co de Phone Number [facility] [address] [place] [phone] * Tissue Transglutaminase Antibody, IgA (03/27/2024 10:19 AM EST) Transglutaminase IgA <1.0 U/mL [facility] Comment:Value Interpretation ----- <15.0 Antibody not detected> or = 15.0 Antibody detectedTHIS TEST WAS PERFORMED AT:[facility] [address] [phone] OLIVAS MD 03/27/2024 10:1 9 AM EST 03/27/2024 10:19 AM EST Generic External Data Provider LAB BLOOD ORDERAB LES Final Result Performing Organization Address [facility] Co de Phone Number [facility] [address] [place] [phone] * Hepatitis B surface antigen, EIA (03/27/2024 10:19 AM EST) Hepatitis B Surface Ag Negative Negative [facility] 03/27/2024 10:1 9 AM EST 03/27/2024 10:19 AM EST Generic External Data Provider LAB BLOOD ORDERAB LES Final Result Performing Organization Address [facility] Co de Phone Number [facility] [address] [place] [phone] * Hepatitis B Core Antibody, Total (03/27/2024 10:19 AM EST) Hepatitis B Core Antibody Nonreactive Nonreactive [facility] 03/27/2024 10:1 9 AM EST 03/27/2024 10:19 AM EST Generic External Data Provider LAB BLOOD ORDERAB LES Final Result Performing Organization Address [facility] Co de Phone Number [facility] [address] [place] [phone] * HIV-1/2 Antigen and Antibodies, Fourth Generation, with Reflexes (03/27/2024 10:19 AM EST) Pathologist [facility] HIV AB/AG Nonreactive Nonreactive [facility] Comment:HIV-1 p24 Ag and/or HIV-1/HIV-2 Ab not detected.A test result that is nonreactive does not exclude thepossibility of exposure to or infection with HIV-1 and/orHIV-2. Nonreactive results in this assay for individualswith prior exposure to HIV-1 and/or HIV-2 may be due toantigen and antibody levels that are below the limit ofdetection of this assay.The Clinical Ink HIV Ag/Ab Combo assay result andsupplemental assay results should be interpreted inconjunction with the patient's clinical presentation,history and other laboratory results. If the results areinconsistent with clinical evidence, additional testing issuggested to confirm the result. 03/27/2024 10:1 9 AM EST 03/27/2024 10:19 AM EST us Generic External Data Provider LAB BLOOD ORDERAB LES Final Result Performing Organization Address City/[facility]/ZIP Co de Phone Number [facility] [address] [place] [phone] * Hepatitis B Surface Antibody, Qualitative (03/27/2024 10:19 AM EST) Pathologist [facility] ~Hepatitis B Surface Antibody REACTIVE Nonreactive [facility] Comment:REACTIVE: > 11.99 mI U/mL 03/27/2024 10:1 9 AM EST 03/27/2024 10:19 AM EST Generic External Data Provider LAB BLOOD ORDERAB LES Final Result Performing Organization Address City/[facility] Co de Phone Number [facility] [address] [place] [phone] * C-reactive Protein (03/27/2024 10:19 AM EST) C Reactive Protein <0.04 < or = 0.50 mg/dL [facility] 03/27/2024 10:1 9 AM EST 03/27/2024 10:19 AM EST us Generic External Data Provider LAB BLOOD ORDERAB LES Final Result Performing Organization Address [facility] Co de Phone Number [facility] [address] [place] [phone] * Immunoglobulin A (03/27/2024 10:19 AM EST) Immunoglobulin A 269 47 - 310 mg/dL [facility] Comment:THIS TEST WAS PERFOR MED AT:[facility] [place] [phone] OLIVAS MD 03/27/2024 10:1 9 AM EST 03/27/2024 10:19 AM EST us Generic External Data Provider LAB BLOOD ORDERAB LES Final Result Performing Organization Address [facility] Co de Phone Number [facility] [address] [place] [phone] * Ferritin (03/27/2024 10:19 AM EST) Ferritin 12 10 - 250 ng/mL [facility] 03/27/2024 10:1 9 AM EST 03/27/2024 10:19 AM EST Generic External Data Provider LAB BLOOD ORDERAB LES Final Result Performing Organization Address [facility] Co de Phone Number [facility] [address] [place] [phone] * MR Lumbar Spine w/o Contrast (03/04/2024 7:00 PM EST) Anatomical Region Laterality Modality Spine, L-spine Magnetic Resonan ce 03/04/2024 7:00 PM EST Narrative 03/29/2024 9:08 AM EST ? [facility] ?[address] ?[place] [address] ? Magnetic Resonance Report ? Signed ? Patient: Abrams James,Corina ?MR#: [id number] ?? [id number] ? : 1975 ?Acct:[id number] ? Age/Sex: 49 / F ?ADM Date: 03/04/24 ? Loc: HO.MRI ? Attending Dr: Clartiza [place] DO ? Ordering Physician: Claritza [place] DO ?? Date of Service: 03/04/24 ?? Procedure(s): MR lumbar spine wo con ?? Accession Number(s): [id number] ? cc: [facility]; Claritza [place] DO ? EXAMINATION: ?? [...] ? DD/ 1900 ? TD/TT: 03/04/241919 ? Compact Assembler: ? Procedure Note Bonita, Image - 03/29/2024 [place] [address] Magnetic Resonance Report Signed Patient: Yarelis Nielsen#: [id number] : 1975Acct:[id number] Age/Sex: 49 / FADM Date: 03/04/24 Loc: HO.MRI Attending Dr: Claritza [place] DO Ordering Physician: Claritza [place] DO Date of Service: 03/04/24 Procedure(s): MR lumbar spine wo con Accession Number(s): [id number] cc: [facility]; Jurcsak,Claritza A DO EXAMINATION: MR LUMBAR [...] MD Signed By: <Electronically signed by Meli Glaser OV> 03/29/24904 DD/ 99 TD/TT: 03/04/241919 Compact Assembler: Claritza Maeyashira DO IMG MRI PROCEDURES Edited Re sult - Final * Cologuard?? colon cancer screening (02/02/2024 9:15 AM EST) Cologuard Result Negative Negative 02/08/20 2:05 AM EST [facility] (CLIA #:[id number]) Comment: NEGATIVE TEST RESULT. A negative Cologuard [...] cancer. ??Following a negative Cologuard result, the [place] Cancer Society and U.S. Multi-Society Task Force screening guidelines recommend a Cologuard re-screening interval of 3 years. References: [place] [employer] Guideline for Colorectal Cancer Screening: https://www.cancer.org/cancer/useab-hsntpg-tawhhl/chyyyxyld-yxgyqgrep-cpzbvjm/ac s-rec ommendations.html.; Hector ABERNATHY, Julio Cesar PEÑA, Janet QUEVEDO, Colorectal Cancer Screening: Recommendations for Physicians and Patients from the U.S. Multi-Society Task Force on Colorectal Cancer Screening , Am J Gastroenterology 2017; 112:2844-7286. TEST DESCRIPTION: Composite algorithmic analysis of stool [...] (Isadora Rodriguez al, N Engl J Med 2014;370(14):9254-4331.) Cologuard may produce a false negative or false positive result (no colorectal cancer or precancerous polyp present at colonoscopy follow up). A negative Cologuard test result does not guarantee the absence of CRC or advanced adenoma (pre-cancer). The current Cologuard screening interval is every 3 years. ([place] Cancer Society and U.S. Multi-Society Task Force). Cologuard performance data in a 10,000 patient pivotal study using colonoscopy as the reference method can be accessed at the following location: www.[employer]/results. Additional description of the Cologuard test process, warnings and precautions can be found at www.Wibkird.com. Stool specimen (specimen) Rectal contents / Unknown 02/02/2024 9:15 AM EST 02/03/2024 10:52 AM EST us Marian Crook MD LAB MOLECULAR DIAGNOSTIC S ORDERABLES Final Result [facility] (CLIA #:[id number] [place] [address], * BI Mammogram Screening Tomosynthesis Bilateral (12/05/2023 3:30 PM EDT) Anatomical Region Laterality Modality Breast Bilateral Mammography 12/05/2023 3:30 PM EDT Narrative 12/19/2023 8:58 AM EDT ? [facility] [place] ? [address] ?[place] [address] ? Mammography Report ? Signed ? Patient: Corina Nielsen ?MR#: [id number] ?? [id number] ? : 1975 ?Acct:[id number] ? Age/Sex: 48 / F ?ADM Date: 12/05/23 ? Loc: HO.MAMMO ? Attending Dr: Marian Crook MD ? Ordering Physician: Marian Crook MD ?Results: 1Ne ?? gative ? Date of Service: 12/05/23 ?Follow Up: 1 Year From Orig ?? inal Mammogram ? Procedure(s): MM tomosynthesis screening BI ?? Accession Number(s): [id number] ? cc: Marian Crook MD ? EXAMINATION: ?? MM SCREENING [...] DD/ 1530 ? TD/TT: 12/05/23 1540 ? Compact Assembler: ? Procedure Note Bonita, Image - [facility]20[facility] [address] [place] [address] Mammography Report Signed Patient: Baljit NielsenJustina#: [id number] : 1975Acct:[id number] Age/Sex: 48 / FADM Date: 12/05/23 Loc: ILDA Attending Dr: Marian Crook MD Ordering Physician: Marian Crookesults: 1Ne gative Date of Service: 12/05/23Follow Up: 1 Year From Orig inal Mammogram Procedure(s): MM tomosynthesis screening BI Accession Number(s): [id number] cc: Marian Crook MD EXAMINATION: MM SCREENING [...] 12/19/23 0855 DD/ 1530 TD/TT: 12/05/23 1540 Compact Assembler: Marian Crook MD IMG BI PROCEDURES Final Result * THINPREP TIS PAP (06/06/2020 2:03 PM EDT) Clinical Information: None given [facility] COMMENT SEE COMMENT [facility] [...] has been evaluated with computer assisted technology. 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 [facility] Interpretation/R esult: Negative for intraepithelial lesion or malignancy. [facility] LMP: NONE GIVEN [facility] Prev. BX: NONE GIVEN [facility] Prev. PAP: NONE GIVEN [facility]OUND[facility] ON LAB SYSTEM SOURCE: None given [facility] Statement Of Adequacy: SEE COMMENT [facility] Comment: Satisfactory for evaluation. Endocervical/transformation zone component present. Age and/or menstrual status not provided 06/06/2020 2:03 PM EDT us Mattie Farr MD LAB PATHOLOGY ORDERABLES Sophie l Result Performing Organization Address [facility] Co de Phone Number [facility] [address] * HPV mRNA E6/E7 (06/06/2020 2:03 PM EDT) HPV nRNA E6/E7 Not Detected Not Detected [facility] Comment: Methodology: Supervisor Metalizing-Mediated Amplification This assay detects E6/E7 viral messenger RNA (mRNA) from 14 high-risk HPV types (16,18,31,33,35,39,45,51,52,56,58,59,66,68). ? The analytical performance characteristics of this assay have been determined by [employer]. The modifications have not been cleared or approved by the FDA. This assay has been validated pursuant to the CLIA regulations and is used for clinical purposes. ?? For additional information, please refer to http://education.[employer] Communications/faq/ZSV080j2 (This link if provided for information/ educational purposes only.) 06/06/2020 2:03 PM EDT us Mattie Farr MD LAB BLOOD ORDERABLES Final Re sult Performing Organization Address [facility] Co de Phone Number [facility] [address] from Last 3 Months or Most Recently Relevant to Health Maintenance Insurance [facility] C[facility] Care Teams Event Planning Intern Relationship Specialty Start Date End Date Marian Crook MD [address] [place] [address] PCP - General Internal Medicine 09/12/23
--- OUTSIDE RECORDS SUMMARY | 2024-04-20 15:50 | XMS_ITS | Encounter Summary ---
Author Organization [employer] Address [address] [facility] 7t [place] [address] Care Team Providers Care Photocopying Machine Operator Name Role Phone Marian Crook MD Primary Care Provider + Reason for Visit * Reason Onset Date Comments Med Refill 03/25/2024 Encounter Details Date Type Department Care Team (Late st Contact Info) Description 03/25/2024 Refill [facility] [address] [place] [address] Claritza [place] DO 230 [place] [address] Social History Tobacco Use Types Packs/Day Years [...] documented as of this encounter Care Teams Photocopying Machine Operator Relationship Specialty Start Date End Date Marian Crook MD [address] [place] [phone] PCP - General Internal Medicine 09/12/23 documented as of this encounter
--- OUTSIDE RECORDS SUMMARY | 2024-04-20 15:50 | XMS_ITS | Encounter Summary ---
Author Organization [employer] Address [address] [facility] 7t [place] [address] Care Team Providers Care Marketing Intelligence Manager Name Role Phone Marian Crook MD Primary Care Provider + Reason for Visit * Reason Onset Date Comments Results 03/30/2024 Encounter Details Date Type Department Care Team ([facility] st Contact Info) Description 03/30/2024 Telephone [facility] 230 [place], [place] [phone] Marian Crook MD 230 [place], [place] [phone] Results Social History Tobacco Use Types Packs/Day [...] 2:01 PM EST TC placed to patient [phone] to inform ordering provider has placed US [...] 4:34 PM EST TC placed to patient [phone] in regards to below message. Patient advised [...] reviewed chart and patient was seen by [facility] on 03/27/24 and they are recommending injections. RN advised patient to continue with PM plan of receiving injections. Patient advised we will call her once we receive the US results and they are reviewed by the provider. Patient reports [facility] called her regarding her BW results [...] Labs 03/27/2024 Date when done: 02/26/2024 Facility: [facility] documented in this encounter Plan of Treatment Not on file documented as of this encounter Visit Diagnoses Not on filedocumented in this encounter Additional Health Concerns Assessment Noted Time PHQ-9 Depression Total Score: 22 024 2:02 PM EDT documented as of this encounter Care Teams Marketing Intelligence Manager Relationship Specialty Start Date End Date Marian Crook MD [address] [place] [phone] PCP - General Internal Medicine 09/12/23 documented as of this encounter
--- OUTSIDE RECORDS SUMMARY | 2024-04-20 15:50 | XMS_ITS | Encounter Summary ---
Author Organization [employer] Address [address] [place] [address] 7 [place] [address] Care Team Providers Care Sprinkling Truck Driver Name Role Phone FloralaAlisha nava Primary Care Provider [phone] Marian Crook MD Primary Care Provider + Encounter Details Date Type Department Care Team (Late st Contact Info) Description 04/03/2023 Abstract [facility] [address] [place] [address] Florala Alisha [facility] 230 [place] [address] Social History Tobacco Use Types Packs/Day Years [...] documented as of this encounter Care Teams Sprinkling Truck Driver Relationship Specialty Start Date End Date Alisha Hook FNP 230 [place] [address] PCP - General Family Medicine 11/14/21 09/11/23 Marian Crook MD [address] [place] [address] PCP - General Internal Medicine 09/12/23 documented as of this encounter
--- OUTSIDE RECORDS SUMMARY | 2024-04-20 15:50 | XMS_ITS | Encounter Summary ---
Author Organization [employer] Address [address] [facility] 7t [place] [address] Care Team Providers Care Pricing Actuary Name Role Phone Marian Crook MD Primary Care Provider + Reason for Visit * Reason Onset Date Comments Med Refill 03/25/2024 Encounter Details Date Type Department Care Team (Late st Contact Info) Description 03/25/2024 Refill [facility] 230 [place] [address] Claritza [place] DO 230 [place] [address] Social History Tobacco Use Types Packs/Day Years [...] documented as of this encounter Care Teams Pricing Actuary Relationship Specialty Start Date End Date Marian Crook MD [address] [place] [address] PCP - General Internal Medicine 09/12/23 documented as of this encounter
--- OUTSIDE RECORDS SUMMARY | 2024-04-20 15:50 | XMS_ITS | Encounter Summary ---
Author Organization [facility] Address [address] [place] [address] 7t [place] [address] Care Team Providers Care Gastroenterology Professor Name Role Phone Marian Crook MD Primary Care Provider + Reason for Visit * Reason Comments Med Refill Encounter Details Date Type Department Care Team (Late st Contact Info) Description 11/27/2023 Refill [facility] 230 [place] [address] Marian Crook MD 230 [place] [address] Social History Tobacco Use Types Packs/Day Years [...] documented as of this encounter Care Teams Gastroenterology Professor Relationship Specialty Start Date End Date Marian Crook MD 230 [place] [address] PCP - General Internal Medicine 09/12/23 documented as of this encounter
--- OUTSIDE RECORDS SUMMARY | 2024-04-20 15:50 | XMS_ITS | Encounter Summary ---
Author Organization [employer] [facility] Address [address] [place] [address] [address] [place] [address] Care Team Providers Care Pencil Maker Name Role Phone Marian Crook MD Primary Care Provider + Reason for Referral * Imaging (Routine) - Authorized Specialty Diagnoses / Procedures Referred By Contac t Referred To Contact Radiology Diagnoses Abnormal MRI, lumbar spine Procedures US Pelvis Transvaginal Claritza Leonard DO [address] [place] [address] Phone: tel: fax: [address] Phone: tel: fax: Referral ID Status Reason Start Date Expiration Date V isits Requested Visits Authorized [id number] Authorized 04/09/2024 04/09/2025 1 1 * Imaging (Routine) - Authorized Specialty Diagnoses / Procedures Referred By Contac t Referred To Contact Radiology Diagnoses Abnormal MRI, lumbar spine Procedures Us Pelvis complete Claritza Leonard DO [address] [place] [address] Phone: tel: fax: [address] Phone: tel: fax: Referral ID Status Reason Start Date Expiration Date V isits Requested Visits Authorized [id number] Authorized 04/09/2024 04/09/2025 1 1 * Imaging (Routine) - Authorized Specialty Diagnoses / Procedures Referred By Contmartín t Referred To Contact Radiology Diagnoses Abnormal MRI, lumbar spine Procedures US RENAL BI Claritza Leonard DO [address] [place] [address] Phone: tel: fax: [address] Phone: tel: fax: Referral ID Status Reason Start Date Expiration Date V isits Requested Visits Authorized [id number] Authorized 04/09/2024 04/09/2025 1 1 Encounter Details Date Type Department Care Team (Late st Contact Info) Description 04/09/2024 Orders Only [facility] [address] [place] [address] Claritza Leonard DO [address] [place] [address] Abnormal MRI, lumbar spine (Primary Dx) Social [...] documented as of this encounter Care Teams Pencil Maker Relationship Specialty Start Date End Date Marian Crook MD [address] [place] [phone] PCP - General Internal Medicine 09/12/23 documented as of this encounter
== END 2024-04-20 14:54 | disposition home or self-care (01) ==
LOC: HO.US 14:53
PROVIDERS: Visit Provider Family Medicine
DX: R93.7 Abnormal findings on diagnostic imaging of other parts of musculoskeletal system (principal)
CPT/HCPCS: 76775; 76830; 76856

== ENCOUNTER → 2024-04-20 14:54 | Outpatient (BNV) | payer MEDICAID, SELFPAY | PROVIDERS: Visit Provider Radiology Diagnostic Radiology | DX: D25.9 Leiomyoma of uterus, unspecified (principal); N83.291 Other ovarian cyst, right side; N83.292 Other ovarian cyst, left side; N28.1 Cyst of kidney, acquired | CPT/HCPCS: 76830; 76856 ==

== ENCOUNTER 2024-04-22 15:01 | Outpatient (AMB) | payer MEDICAID, SELFPAY ==
[2024-04-22 15:03] VITALS: BP 99/55; PULSE 81; O2SAT 97; BMI 28.3
--- NOTE | 2024-04-22 15:03 | A.OFFVIS_ITS ---
Vital Signs 04/22/24 15:03 Height 5 ft 4 in Weight 165 lb BMI 28.3 BP 99/55 L Blood Pressure Location Rt brachial Position Sitting Pulse 81 Pulse Source Pulse Oximeter Pulse Oximetry (%) 97 Oxygen Delivery Method Room Air Intake Visit Reasons: s/p Left Dx SIJ inj Learning And Development Intern Required: No Allergies No Known Allergies [No Known Allergies*] Allergy (Verified 04/22/24 15:06) Medication List - Last Reconciled 04/22/24 by Merry Allred LPN albuterol sulfate 1 vial inhalation Q4H PRN cholecalciferol (vitamin D3) (Vitamin D3) 50 mcg PO DAILY ferrous sulfate 325 mg PO Q OTHER DAY lidocaine 5% 1 patch topical DAILY montelukast 10 mg PO QAM peg 3350-electrolytes 236-22.74-6.74 -5.86 gram (Golytely) 240 mL PO Q10M HPI Comments Details: Patient presents today to assess response to left diagnostic SI joint injection on 04/15/[address] Pena. Patient reports 100% pain relief for 48 hours with significant improvement in her daily activities and functioning, mobility, sleep, and social interactions. She would like to proceed with guided left therapeutic SI joint injection as next steps. We also reviewed short and senior care PNS trial and implants, SI joint fusion and RFA procedures. Patient also reports she recently renal and pelvic US and has concerns about results she reviewed via her patient portal. She is requesting Urology and Gynecology referrals. Past Procedures: 04/15/24: Left diagnostic SI joint injections-100% for 2 days Past [facility] Procedures: 02/08/2016: Left L5-S1 TFESI, Dr. Bo- good relief PRIOR: Patient is a pleasant 49 years old female with prior history of chronic low back pain, presents today for initial evaluation for lower back pain with radiation into left lower extremity. Denies any recent or past trauma, injury or falls. Reports back pain radiates into her left buttock and into left lateral hip and occasionally thigh and into her left lateral leg and toes with numbness and tingling in her left lower leg and left foot. She experiences occasional limping especially after prolonged sitting. Pain is constant and is most severe at night time which she rates at 10/10. Patient reports she was followed at [facility] 8 years ago and received DOMO injection that provided her pain relief for 4 years. Patient also has tried NSAIDs, Tylenol, lidocaine patches, muscle relaxants, heat and activity modifications without relief. Patient attempted physical therapy at [facility] last year and had to discontinue due to increased pain with exercises. She completed lumbar spine MRI last month, with reports still pending. MRI imaging show no significant neural foraminal or central canal stenosis. Pain is consistent with left SI joint pain with positive provocative testing and axial low back pain. Pain affects her daily activities and functioning, mobility, driving, mood, sleep and social interactions. Denies any fever or chills, weakness, foot drop, bladder or bowel dysfunction or saddle anesthesia. Oswestry Low Back Pain Disability Score=30 (severe disability) Location: Lower back radiates down left leg Duration: Chronic pain for >10 + years Characteristics of symptom or complaint: Jumping, stabbing, numbness, tingling, sharp, cramping, burning, tight Aggravating or associated factors: Prolonged sitting, walking, climbing, changing from sitting to standing Relieving factors: Tried NSAIDs, muscle relaxants, Tylenol, heat, activity modifications Treatment: PT-increased pain, lumbar DOMO at [facility] -good relief [facility] Medical History Depression Anal fissure Hemorrhoids Chronic RLQ pain Polyuria Dizziness FILIBERTO (obstructive sleep apnea) Moderate persistent asthma in adult without complication Chronic low back pain Iron deficiency Arthritis History of asthma Surgical History S/P laparoscopic sleeve gastrectomy H/O abdominoplasty Family History Mother History of hypertension Arthritis Glaucoma Father Heart problem History of hypertension Brother Heart problem History of hypertension Sister History of hypertension Brother No problems noted. Brother No problems noted. Brother No problems noted. Brother No problems noted. Sister No problems noted. Sister No problems noted. Sister No problems noted. Social History Household Members: Spouse and Children Housing: House Alcohol intake: current Alcohol intake frequency: holidays/special occasions only Patient Tobacco Use Status: Never used Tobacco service: No Current occupational status: employed Review of Systems Const All systems reviewed & are unremarkable except as noted in HPI and below Physical Exam Vital Signs: Last Vital Signs Pulse 81 04/22/24 15:03 BP 99/55 L 04/22/24 15:03 Pulse Ox 97 04/22/24 15:03 Oxygen Delivery Method Room Air 04/22/24 15:03 BMI result Body Mass Index 28.3 General: Appears afebrile. Alert and oriented. Mood and affect appropriate. Follows and participates in conversation appropriately. Respiratory effort is unlabored. No cough. Able to transition from sit to stand unassisted. Ambulates with bilaterally normal heel strike and toe off. General: Yes no CVA tenderness Back/Spine/Pelvis Other: Limited lumbar ROM due to pain. Normal gait, no limping. Can flex forward to 75- 80 degrees and extend to 5-10 degrees before experiencing lumbar pain. Demonstrates 5/5 strength of quadriceps bilaterally as well as flexion/ dorsiflexion of bilateral feet against resistance. 2+ pedal pulses bilaterally. Straight leg rise with dorsiflexion negative bilaterally. +2 patellar and achilles reflexes bilaterally. Facet loading test positive bilaterally. Murphy sign, Jair?s, Gaenslen, Pelvic compression and Stinchfield tests are positive on the left. No groin pain with I/E hip rotations. Mild GTB tenderness on the left. Valsalva maneuver is negative. Back: no CVA tenderness Cervical Spine: cervical ROM normal, cervical muscular tenderness, pain with cervical ROM and No Cervical spine tenderness Thoracic/Lumbar Spine: thoracic and lumbar spine normal to inspection, No Thoracic/lumbar spine scar(s), Lasegue's sign negative, straight leg raise negative bilaterally, pain with thoraco-lumbar ROM, paraspinal muscle tenderness, No thoracic spinal tenderness and lumbar spinal tenderness at L4 and at L5 Pelvis: buttock tenderness on the left Sacroiliac joints: on the right nontender and on the left tender to palpation Extrem General: Yes capillary refill normal, Yes no clubbing, cyanosis or edema and Yes no calf tenderness Results Reviewed Results Reviewed: XR LUMBOSACRAL SPINE 09/12/23 CLINICAL INFORMATION: Chronic low back pain without sciatica. Patient states 2-3 years of low back pain worsening for the last 3-4 months. COMPARISON: 07/06/2014 FINDINGS: Dextroscoliosis of the lumbar spine. Postsurgical changes with clips in the left upper quadrant. Small pelvic calcifications are likely vascular. Bones are demineralized. Facet arthritis in the lower lumbar spine. Mild multilevel lumbar spondylosis with loss of disc space height at L3-L4. IMPRESSION: Mild multilevel lumbar spondylosis with loss of disc space height at L3-L4. XR HIP, RIGHT 03/26/24 Comparison: None Findings: No acute fracture or dislocation. No significant arthritic change. The soft tissues are unremarkable. IMPRESSION: No acute findings. US Renal 04/20/24 Comparison: None Findings: Right kidney normal size and echotexture, 9.6 cm length. 1.3 cm peripelvic cyst, upper pole. Left kidney normal size and echotexture, 10.2 cm length. Multiple peripelvic cysts. Questionable collecting system fullness. Normal color Doppler. IMPRESSION: There are peripelvic cysts bilaterally. This somewhat limits interpretation for hydronephrosis. There is questionable fullness of the left-sided collecting system. US PELVIS 04/20/24 CLINICAL INFORMATION: Probable uterine fibroids. COMPARISON: December 28, 2012 TECHNIQUE: Ultrasound of the pelvis is performed using both transabdominal and transvaginal transducers along with Doppler. Transvaginal imaging is performed due to inadequate visualization transabdominally. FINDINGS: Uterus: The uterus is anteverted and measures 9 x 5 x 7 cm. Volume is 164 cc. The cervix measures 3 cm. The double wall endometrial thickness is 2 mm. There is a 5 cm heterogeneous soft tissue lesion in the anterior body of the uterus. There is a 1.2 cm heterogeneous soft tissue lesion in the posterior body of the myometrium. Adnexa: Both ovaries are visualized. There is normal color flow to the adnexa. There is no ovarian torsion. There is no pelvic ascites or fluid collection. Right ovary measures 3 x 1 x 3 cm. Volume is 6 cc. There is a 2.4 cm anechoic lesion without flow on color Doppler interrogation. Left ovary measures 4 x 3 x 4 cm. Volume is 22 cc. There is a 2.4 cm anechoic structure without flow on color Doppler interrogation. IMPRESSION: Uterine fibroids, largest 5 cm. No ovarian torsion. Probable dominant follicles both ovaries. Assessment & Plan Assessment & Plan (1) Sacroiliac joint pain: Code(s): M53.3 - Sacrococcygeal disorders, not elsewhere classified Category: Medical (2) Lumbar back pain with radiculopathy affecting left lower extremity: Code(s): M54.16 - Radiculopathy, lumbar region Category: Medical (3) Muscle spasm of back: Code(s): M62.830 - Muscle spasm of back Category: Medical (4) Uterine fibroid: Code(s): D25.9 - Leiomyoma of uterus, unspecified Category: Medical (5) Thickened endometrium: Code(s): R93.89 - Abnormal findings on diagnostic imaging of other specified body structures Category: Medical (6) Hydronephrosis, left: Code(s): N13.30 - Unspecified hydronephrosis Category: Medical Plan Schedule Left Therapeutic SIJ injection with local and fluoroscopy given excellent results with diagnostic injections. Expectations, risks and benefits were reviewed. Patient is aware she will be contacted to schedule this procedure. We also reviewed short and terminal block assembler PNS trial and implants, SI joint fusion and RFA procedures. Urology and ObGyn Referrals to further evaluate abnormal findings on recent pelvic and renal US reports. All questions and concerns have been answered and patient agreed with the treatment plan. Follow up for xray results and sooner as needed. Orders: Referrals MACHINIST MATE Referral D25.9 - Leiomyoma of uterus, unspecified, R93.89 - Abnormal findings on diagnostic imaging of other specified body structures Urology Referral N13.30 - Unspecified hydronephrosis Coding Level of Care Code Est Pt Level 4 (54868) Complex EM visit Add On G2211 Diagnoses Sacroiliac joint pain M53.3 Lumbar back pain with radiculopathy affecting left lower extremity M54.16 Muscle spasm of back M62.830 Uterine fibroid D25.9 Thickened endometrium R93.89 Hydronephrosis, left N13.30
--- OUTSIDE RECORDS SUMMARY | 2024-04-22 18:55 | XMS_ITS | Encounter Summary ---
Author Organization [employer] Address [address] [facility] 7t [place] [address] Care Team Providers Care Drum Cleaner Name Role Phone Marian Crook MD Primary Care Provider + Reason for Visit * Reason Onset Date Comments Call Back Requested 03/30/2024 Encounter Details Date Type Department Care Team ([facility] st Contact Info) Description 03/30/2024 Telephone [facility] [address] [place] [address] Marian Crook MD [address] [place] [address] Call Back Requested Social History Tobacco Use [...] 8:39 AM EST TC placed to patient [phone] in regards to below message. Patient did not answer, RN left requesting CB to red team nurses. If patient returns call, please advise patient blood work was ordered by Dr. G[facility] and she should call [phone] for her results * Telephone Encounter - Ale Lopes - 03/30/2024 8:12 AM EST Tc from pt requesting call back in regard lab results. [phone] documented in this encounter Plan of Treatment Not on file documented as of this encounter Visit Diagnoses Not on filedocumented in this encounter Additional Health Concerns Assessment Noted Time PHQ-9 Depression Total Score: 22 024 2:02 PM EDT documented as of this encounter Care Teams Drum Cleaner Relationship Specialty Start Date End Date Marian Crook MD [address] [place] [phone] PCP - General Internal Medicine 09/12/23 documented as of this encounter
--- OUTSIDE RECORDS SUMMARY | 2024-04-22 18:55 | XMS_ITS | Encounter Summary ---
Author Organization [employer] Address [address] [place] [address] 7[address] [place] [address] Care Team Providers Care Production Machine Shop Supervisor Name Role Phone [facility] Primary Care Provider [phone] Marian Crook MD Primary Care Provider + Reason for Visit * Reason Onset Date Comments Nurse Triage 11/18/2022 Encounter Details Date Type Department Care Team (Late st Contact Info) Description 11/18/2022 Telephone [facility] MEDICINE [address] [place] [address] [facility] [address] [place] [address] Nurse Triage Social History Tobacco Use Types [...] documented as of this encounter Care Teams Production Machine Shop Supervisor Relationship Specialty Start Date End Date MaywoodAlisha nava FNP [address] [place] [address] PCP - General Family Medicine 11/14/21 09/11/23 Marian Crook MD [address] [place] [address] PCP - General Internal Medicine 09/12/23 documented as of this encounter
--- OUTSIDE RECORDS SUMMARY | 2024-04-22 18:55 | XMS_ITS | Encounter Summary ---
Author Organization [employer] Address [address] [facility] [address] [place] [address] Care Team Providers Care Hydrologic Engineer Name Role Phone Marian Crook MD Primary Care Provider + Reason for Visit * Reason Onset Date Comments Results 03/30/2024 Encounter Details Date Type Department Care Team ([facility] st Contact Info) Description 03/30/2024 Telephone [facility]ICINE [address] [place], [place] [phone] Marian Crook MD [address] [place], [place] [phone] Results Social History Tobacco Use Types Packs/Day [...] 2:01 PM EST TC placed to patient [phone] to inform ordering provider has placed US [...] 4:34 PM EST TC placed to patient [phone] in regards to below message. Patient advised [...] reviewed chart and patient was seen by [facility] on 03/27/24 and they are recommending injections. RN advised patient to continue with PM plan of receiving injections. Patient advised we will call her once we receive the US results and they are reviewed by the provider. Patient reports [facility] called her regarding her BW results [...] Labs 03/27/2024 Date when done: 02/26/2024 Facility: [facility] documented in this encounter Plan of Treatment Not on file documented as of this encounter Visit Diagnoses Not on filedocumented in this encounter Additional Health Concerns Assessment Noted Time PHQ-9 Depression Total Score: 22 024 2:02 PM EDT documented as of this encounter Care Teams Hydrologic Engineer Relationship Specialty Start Date End Date Marian Crook MD [address] [place] [phone] PCP - General Internal Medicine 09/12/23 documented as of this encounter
--- OUTSIDE RECORDS SUMMARY | 2024-04-22 18:55 | XMS_ITS | Encounter Summary ---
Author Organization [employer] Address [address] [place] [address] Care Team Providers Care Flower Picker Name Role Phone Marian Crook MD Primary Care Provider + Encounter Details Date Type Department Care Team (Late st Contact Info) Description 03/26/2024 Orders Only [facility] External Provider, [facility] Social History Tobacco Use Types Packs/Day [...] EST Narrative 03/29/2024 1:08 PM EST ? [facility] ?[address] ?[place] [address] ?XRay Report ? Signed ? Patient: Abrams James,Corina ?MR#: [id number] ?? [id number] ? : 1975 ?Acct:[id number] ? Age/Sex: 49 / F ?ADM Date: 01/03/25 ? Loc: HO.XRAY ? Attending Dr: Jada CLEMENT ? Ordering Physician: Jada Cervantes ?? Date of Service: 03/26/24 ?? Procedure(s): XR hip LT min 2V w/wo pel ?? Accession Number(s): [id number] ? cc: Jada Cervantes; Marian Crook MD [...] DD/ 1306 ? TD/TT: 03/29/24 1306 ? Financial Processing Clerk: ? Procedure Note Donpakyleter, Image - 03/29/2024 [place] [address] XRay Report Signed Patient: Yarelis Nielsen#: [id number] : 1975Acct:[id number] Age/Sex: 49 / FADM Date: 03/26/24 Loc: [facility] Attending Dr: Jada CLEMENT Ordering Physician: Jada Cervantes Date of Service: 03/26/24 Procedure(s): XR hip LT min 2V w/wo pel Accession Number(s): [id number] cc: Jada Cervantes; Marian Crook MD CLINICAL [...] 03/29/24 1307 DD/ 1306 TD/TT: 03/29/24 1306 Financial Processing Clerk: [facility] External Provider IMG XR PROCEDURES Edited Result - Final documented in this encounter Visit Diagnoses Not on filedocumented in this encounter Additional Health Concerns Assessment Noted Time PHQ-9 Depression Total Score: 22 024 2:02 PM EDT documented as of this encounter Care Teams Flower Picker Relationship Specialty Start Date End Date Marian Crook MD [address] [place] [phone] PCP - General Internal Medicine 09/12/23 documented as of this encounter
--- OUTSIDE RECORDS SUMMARY | 2024-04-22 18:55 | XMS_ITS | Clinical Summary ---
Author Organization [employer] Address [address] [place] [address] 7[address] [place] [address] Care Team Providers Care Center Hole Reamer Name Role Phone Marian Crook MD Primary [...] for this letter, she has appt with [facility] next week. I told her to reach out to legal associate to help her write a letter so that housing give her some more time to get the letter from MH provider. She will res tart Effexor for anxiety and fu with me in 6m Encounters Date Type Department Care Team Description 04/13/2024 Refill [facility] [address] [place] [address] Marian Crook MD 04/09/2024 Orders Only [facility] [address] [facility] [place] [address] Claritza Leonard DO Abnormal MRI, lumbar spine (Primary Dx) 03/30/2024 Telephone [facility] [address] [facility] [place] [address] Marian Crook MD Results 03/30/2024 Telephone [facility] [address] [facility] [place] [address] Marian Crook MD Stable Imaging Letter 03/30/2024 Telephone [facility] [address] [facility] [place] [address] Marian Crook MD Call Back Requested 03/27/2024 Orders Only GENERIC EXTERNAL DATA DEPARTMENT Provider, Generic External Data 03/26/2024 Orders Only [facility] External Provider, [facility] 03/25/2024 Refill [facility] [address] [facility] [place] [address] Marian Crook MD Moderate persistent asthma without complication 03/25/2024 Refill [facility] [address] [place] [address] Marian Crook MD 03/25/2024 Refill [facility] [address] [place] [address] Claritza Leonard, DO 03/25/2024 Refill [facility] [address] [facility] [place] [address] Claritza Leonard, DO 03/22/2024 Telephone [facility] [address] [place] [address] Claritza Leonard, DO 03/19/2024 Telephone [facility] [address] [place] [address] Marian Crook MD Results 03/05/2024 Refill [facility] [address] [place] [address] Claritza Leonard, DO 03/01/2024 Telephone [facility] [address] [place] [address] Marian Crook MD Nurse Triage 02/26/2024 12:00 PM EST Office Visit [facility] [address] [facility] [place] [address] Claritza Leonard, DO Folliculitis (Primary Dx); Chronic bilateral low back pain with left-sided sciatica 02/26/2024 Travel 02/26/2024 Telephone [facility] [address] [facility] [place] [address] Marian Crook MD Nurse Triage 02/24/2024 Refill [facility] [address] [place] [address] Marian Crook MD 02/01/2024 Refill [facility] [address] [place] [address] Marian Crook MD from Last 3 Months [...] 5 Years) and At-Risk Patients (6 to 49) Years) Completed 01/12/2024, 10/11/2013 HIV Screening Completed [...] Procedure Name Priority Date/Time Associated Diagnosis Comments US RENAL BI Routine 04/21/2024 12:04 PM EST Abnormal MRI, lumbar spine US PELVIS TRANSVAGINAL Routine 3:25 PM EST Abnormal MRI, lumbar spine XR HIP 2 OR 3 VIEWS LEFT [...] Recently Relevant to Health Maintenance Results * US RENAL BI (04/21/2024 12:04 PM EST) Anatomical Region Laterality Modality Abdomen Ultrasound 04/21/2024 12:0 4 PM EST Narrative 04/21/2024 12:05 PM EST ? [facility] ?[address] ?[place] [address] ? Ultrasound Report ? Signed ? Patient: Corina Nielsen ?MR#: [id number] ?? [id number] ? : 1975 ?Acct:[id number] ? Age/Sex: 49 / F ?ADM Date: 04/20/24 ? Loc: HO.US ? Attending Dr: Claritza Leonard DO ? Ordering Physician: Claritza Leonard DO ?? Date of Service: 04/20/24 ?? Procedure(s): US renal BI ?? Accession Number(s): [id number] ? cc: Claritza Leonard DO ? CLINICAL HISTORY: probable L parepelvic renal cyst on MRI L-spine for eval ? US Renal ? Comparison: None ? Findings: ?? Right kidney normal size and echotexture, 9.6 cm length. 1.3 cm peripelvic ?? cyst, upper pole. ?? Left kidney normal size and echotexture, 10.2 cm length. Multiple ?? peripelvic cysts. Questionable collecting system fullness. ? Normal color Doppler. ? IMPRESSION: ?? There are peripelvic cysts bilaterally. This somewhat limits ?? interpretation for hydronephrosis. There is questionable fullness of the ?? left-sided collecting system. ? This document has been electronically signed by: Samy Jorgensen MD on ?? 04/21/2024 12:04:08 ? Dictated By: ?Samy Jorgensen MD ? Signed By: ?<Electronically signed by Samy Jorgensen MD in OV> ? 04/21/24 1204 ? DD/ 1204 ? TD/TT: 04/21/24 1204 ? Magnet Maker: ? Procedure Note Donotuseinterpreter, Image - 04/21/2024 [place] [address] Ultrasound Report Signed Patient: Yarelis Nielsen#: [id number] : 1975Acct:[id number] Age/Sex: 49 / FADM Date: 04/20/24 Loc: HO.US Attending Dr: Claritza Leonard DO Ordering Physician: Claritza Leonard DO Date of Service: 04/20/24 Procedure(s): US renal BI Accession Number(s): [id number] cc: Claritza Leonard DO CLINICAL HISTORY: probable L parepelvic renal cyst on MRI L-spine for eval US Renal Comparison: None Findings: Right kidney normal size and echotexture, 9.6 cm length. 1.3 cm peripelvic cyst, upper pole. Left kidney normal size and echotexture, 10.2 cm length. Multiple peripelvic cysts. Questionable collecting system fullness. Normal color Doppler. IMPRESSION: There are peripelvic cysts bilaterally. This somewhat limits interpretation for hydronephrosis. There is questionable fullness of the left-sided collecting system. This document has been electronically signed by: Samy Jorgensen MD on 04/21/2024 12:04:08 Dictated By: Samy Jorgensen MD Signed By: <Electronically signed by Samy Jorgensen MD in OV> 04/21/24 1204 DD/ 1204 TD/TT: 04/21/24 120 Magnet Maker: us Claritza Leonard DO IMG US PROCEDURES Edited Res ult - Final * US Pelvis Transvaginal (04/20/2024 3:25 PM EST) Anatomical Region Laterality Modality Pelvis Ultrasound 04/20/2024 3:25 PM EST Narrative 04/21/2024 9:28 AM EST ? [facility] ?[address] ?[place] [address] ? Ultrasound Report ? Signed ? Patient: Abrams James,Corina ?MR#: [id number] ?? [id number] ? : 1975 ?Acct:[id number] ? Age/Sex: 49 / F ?ADM Date: 04/20/24 ? Loc: HO.US ? Attending Dr: Claritza Leonard DO ? Ordering Physician: Claritza Leonard DO ?? Date of Service: 04/20/24 ?? Procedure(s): US pelvic and transvaginal ?? Accession Number(s): [id number] ? cc: Claritza Leonard DO ? EXAMINATION: ? US PELVIS ? CLINICAL INFORMATION: ? Probable uterine fibroids. ? COMPARISON: ?? December 28, 2012 ? TECHNIQUE: ?? Ultrasound of the pelvis is performed using both transabdominal and ?? transvaginal transducers along with Doppler. Transvaginal imaging is ?? performed due to inadequate visualization transabdominally. ? FINDINGS: ?? Uterus: ?? The uterus is anteverted and measures 9 x 5 x 7 cm. Volume is 164 cc. ? The cervix measures 3 cm. ? The double wall endometrial thickness is 2 mm. ? There is a 5 cm heterogeneous soft tissue lesion in the anterior body ?? of the uterus. ??There is a 1.2 cm heterogeneous soft tissue lesion in ?? the posterior body of the myometrium. ? Adnexa: ?? Both ovaries are visualized. There is normal color flow to the adnexa. ?? There is no ovarian torsion. ??There is no pelvic ascites or fluid ?? collection. ? Right ovary measures 3 x 1 x 3 cm. Volume is 6 cc. ?? There is a 2.4 cm anechoic lesion without flow on color Doppler ?? interrogation. ? Left ovary measures 4 x 3 x 4 cm. Volume is 22 cc. ?? There is a 2.4 cm anechoic structure without flow on color Doppler ?? interrogation. ? US/US pelvic and transvaginal ?? IMPRESSION: ?? Uterine fibroids, largest 5 cm. ?? No ovarian torsion. ?? Probable dominant follicles both ovaries. ? Electronically signed by: ??Valentino Guerra MD ??04/21/2024 09:26 AM ?? EST RP ? Dictated By: ?Valentino Cotter MD ? Signed By: ?<Electronically signed by Valentino Jones MD in OV> ? 04/21/24 0926 ? DD/ 1525 ? TD/TT: 04/20/24 1555 ? Magnet Maker: ? Procedure Note Donotuseinterpreter, Image - 04/21/2024 [place] [address] Ultrasound Report Signed Patient: Yarelis Nielsen#: [id number] : 1975Acct:[id number] Age/Sex: 49 / FADM Date: 04/20/24 Loc: HO.US Attending Dr: Claritza Leonard DO Ordering Physician: Claritza Leonard DO Date of Service: 04/20/24 Procedure(s): US pelvic and transvaginal Accession Number(s): [id number] cc: Claritza Leonard DO EXAMINATION: US PELVIS CLINICAL INFORMATION: Probable uterine fibroids. COMPARISON: December 28, 2012 TECHNIQUE: Ultrasound of the pelvis is performed using both transabdominal and transvaginal transducers along with Doppler. Transvaginal imaging is performed due to inadequate visualization transabdominally. FINDINGS: Uterus: The uterus is anteverted and measures 9 x 5 x 7 cm. Volume is 164 cc. The cervix measures 3 cm. The double wall endometrial thickness is 2 mm. There is a 5 cm heterogeneous soft tissue lesion in the anterior body of the uterus. There is a 1.2 cm heterogeneous soft tissue lesion in the posterior body of the myometrium. Adnexa: Both ovaries are visualized. There is normal color flow to the adnexa. There is no ovarian torsion. There is no pelvic ascites or fluid collection. Right ovary measures 3 x 1 x 3 cm. Volume is 6 cc. There is a 2.4 cm anechoic lesion without flow on color Doppler interrogation. Left ovary measures 4 x 3 x 4 cm. Volume is 22 cc. There is a 2.4 cm anechoic structure without flow on color Doppler interrogation. US/US pelvic and transvaginal IMPRESSION: Uterine fibroids, largest 5 cm. No ovarian torsion. Probable dominant follicles both ovaries. Electronically signed by: Valentino Guerra MD 04/21/2024 09:26 AM EST Dictated By: Valentino Cotter MD Signed By: <Electronically signed by Valentino Jones MDin OV> 04/21/24 0926 DD/ 1525 TD/TT: 04/20/24 1555 Magnet Maker: us Claritza Leonard DO IMG US PROCEDURES Edited Res ult - Final * XR Hip 2 or 3 Views Left (03/29/2024 1:06 PM EST) Anatomical Region Laterality Modality Lower Extremities, Hip Left Radiograp hic Imaging 03/29/2024 1:06 PM EST Narrative 03/29/2024 1:08 PM EST ? [facility] ?[address] ?[place] [address] ?XRay Report ? Signed ? Patient: Abrams James,Corina ?MR#: [id number] ?? [id number] ? : 1975 ?Acct:[id number] ? Age/Sex: 49 / F ?ADM Date: 01/03/25 ? Loc: HO.XRAY ? Attending Jacqueline DOYLEP ? Ordering Physician: Jada Cervantes ?? Date of Service: 03/26/24 ?? Procedure(s): XR hip LT min 2V w/wo pel ?? Accession Number(s): [id number] ? cc: Jada Cervantes; Marian Crook MD [...] DD/ 1306 ? TD/TT: 03/29/24 1306 ? Magnet Maker: ? Procedure Note Donsundeepter, Image - 03/29/[address] [address] XRay Report Signed Patient: Yarelis Nielsen#: [id number] : 1975Acct:[id number] Age/Sex: 49 / FADM Date: 03/26/24 Loc: ABIODUN Attending Dr: Jada CLEMENT Ordering Physician: Jada Cervantes Date of Service: 03/26/24 Procedure(s): XR hip LT min 2V w/wo pel Accession Number(s): [id number] cc: Jada Cervantes; Marian Crook MD CLINICAL [...] OV> 03/29/24 1307 DD/ 1306 TD/TT: 03/29/24 130 Magnet Maker: [facility] External Provider IMG XR PROCEDURES Edited Result - Final * Hepatitis C Ab (03/27/2024 10:19 AM EST) Hepatitis C Antibody Nonreactive Nonreactive [facility] Comment:Antibodies to HCV no t detected; does not exclude early acuteHCV infection. 03/27/2024 10:1 9 AM EST 03/27/2024 10:19 AM EST Generic External Data Provider LAB BLOOD ORDERAB LES Final Result Performing Organization Address [facility] Co de Phone Number [facility] [address] [place] [phone] * TSH with Reflex to Free T4 (03/27/2024 10:19 AM EST) TSH reflex Free T4 0.59 0.32 - 4.0 uIU/mL [facility] 03/27/2024 10:1 9 AM EST 03/27/2024 10:19 AM EST Generic External Data Provider LAB BLOOD ORDERAB LES Final Result Performing Organization Address [facility] de Phone Number [facility] [address] [place] [phone] * (ABNORMAL) Iron And Total Iron Binding Capacity (03/27/2024 10:19 AM EST) Iron 298(H) 30 - 160 mcg/dL [facility] Total Iron Binding Capacity 323 228 - 428 mcg/dL [facility] Percent Iron Saturation 92(H) 15 - 50 % [facility] Unsaturated Iron Binding <25 ug/dL [facility] 03/27/2024 10:1 9 AM EST 03/27/2024 10:19 AM EST Generic External Data Provider LAB BLOOD ORDERAB LES Final Result Performing Organization Address [facility] Co de Phone Number [facility] [address] [place] [phone] * Hepatitis A Antibody, Total (03/27/2024 10:19 AM EST) Hepatitis A Antibody IgG Nonreactive Nonreactive [facility] 03/27/2024 10:1 9 AM EST 03/27/2024 10:19 AM EST Generic External Data Provider LAB BLOOD ORDERAB LES Final Result Performing Organization Address [facility] Co wi Phone Number [facility] [address] [place] [phone] * Tissue Transglutaminase Antibody, IgA (03/27/2024 10:19 AM EST) Transglutaminase IgA <1.0 U/mL [facility] Comment:Value Interpretation ----- <15.0 Antibody not detected> or = 15.0 Antibody detectedTHIS TEST WAS PERFORMED AT:[employer] [place] [phone] OLIVAS MD 03/27/2024 10:1 9 AM EST 03/27/2024 10:19 AM EST Generic External Data Provider LAB BLOOD ORDERAB LES Final Result Performing Organization Address [facility] de Phone Number [facility] [address] [place] [phone] * Hepatitis B surface antigen, EIA (03/27/2024 10:19 AM EST) Hepatitis B Surface Ag Negative Negative [facility] 03/27/2024 10:1 9 AM EST 03/27/2024 10:19 AM EST Generic External Data Provider LAB BLOOD ORDERAB LES Final Result Performing Organization Address [facility] Co de Phone Number [facility] [address] [place] [phone] * Hepatitis B Core Antibody, Total (03/27/2024 10:19 AM EST) Pathologist [facility] Hepatitis B Core Antibody Nonreactive Nonreactive [facility] 03/27/2024 10:1 9 AM EST 03/27/2024 10:19 AM EST us Generic External Data Provider LAB BLOOD ORDERAB LES Final Result Performing Organization Address City/[facility]/ZIP Co de Phone Number [facility] [address] [place] [phone] * HIV-1/2 Antigen and Antibodies, Fourth Generation, with Reflexes (03/27/2024 10:19 AM EST) [facility] HIV AB/AG Nonreactive Nonreactive [facility] Comment:HIV-1 p24 Ag and/or HIV-1/HIV-2 Ab not detected.A test result that is nonreactive does not exclude thepossibility of exposure to or infection with HIV-1 and/orHIV-2. Nonreactive results in this assay for individualswith prior exposure to HIV-1 and/or HIV-2 may be due toantigen and antibody levels that are below the limit ofdetection of this assay.The [employer] HIV Ag/Ab Combo assay result andsupplemental assay results should be interpreted inconjunction with the patient's clinical presentation,history and other laboratory results. If the results areinconsistent with clinical evidence, additional testing issuggested to confirm the result. 03/27/2024 10:1 9 AM EST 03/27/2024 10:19 AM EST us Generic External Data Provider LAB BLOOD ORDERAB LES Final Result Performing Organization Address City/[facility]/ZIP Co de Phone Number [facility] [address] [place] [phone] * Hepatitis B Surface Antibody, Qualitative (03/27/2024 10:19 AM EST) [facility] ~Hepatitis B Surface Antibody REACTIVE Nonreactive [facility] Comment:REACTIVE: > 11.99 mI U/mL 03/27/2024 10:1 9 AM EST 03/27/2024 10:19 AM EST us Generic External Data Provider LAB BLOOD ORDERAB LES Final Result Performing Organization Address [facility] Co de Phone Number [facility] [address] [place] [phone] * C-reactive Protein (03/27/2024 10:19 AM EST) C Reactive Protein <0.04 < or = 0.50 mg/dL [facility] 03/27/2024 10:1 9 AM EST 03/27/2024 10:19 AM EST Generic External Data Provider LAB BLOOD ORDERAB LES Final Result Performing Organization Address [facility] Phone Number [facility] [address] [place] [phone] * Immunoglobulin A (03/27/2024 10:19 AM EST) Immunoglobulin A 269 47 - 310 mg/dL [facility] Comment:THIS TEST WAS PERFOR MED AT:[employer] [place] [phone] OLIVAS MD 03/27/2024 10:1 9 AM EST 03/27/2024 10:19 AM EST Generic External Data Provider LAB BLOOD ORDERAB LES Final Result Performing Organization Address [facility] Co de Phone Number [facility] [address] [place] [phone] * Ferritin (03/27/2024 10:19 AM EST) Ferritin 12 10 - 250 ng/mL [facility] 03/27/2024 10:1 9 AM EST 03/27/2024 10:19 AM EST us Generic External Data Provider LAB BLOOD ORDERAB LES Final Result [facility] [address] [place] [phone] * MR Lumbar Spine w/o Contrast (03/04/2024 7:00 PM EST) Anatomical Region Laterality Modality Spine, L-spine Magnetic Resonan ce 03/04/2024 7:00 PM EST Narrative 03/29/2024 9:08 AM EST ? [facility] ?[address] ?[place] [address] ? Magnetic Resonance Report ? Signed ? Patient: Corina Nielsen ?MR#: [id number] ?? [id number] ? : 1975 ?Acct:[id number] ? Age/Sex: 49 / F ?ADM Date: 03/04/24 ? Loc: HO.MRI ? Attending Dr: Claritza Leonard DO ? Ordering Physician: Claritza Leonard DO ?? Date of Service: 03/04/24 ?? Procedure(s): MR lumbar spine wo con ?? Accession Number(s): [id number] ? cc: [facility]; Claritza Leonard DO ? EXAMINATION: ?? [...] Valentino Jones MD in OV> ? 03/29/24 0905 ? DD/ 1900 ? TD/TT: 03/04/24 1920 ? Magnet Maker: ? Procedure Note Carli Mesa - 03/29/[address] [address] Magnetic Resonance Report Signed Patient: Baljit NielsenR#: [id number] : 1975Acct:[id number] Age/Sex: 49 / FADM Date: 03/04/24 Loc: HO.MRI Attending Dr: Claritza Leonard DO Ordering Physician: Claritza Leonard DO Date of Service: 03/04/24 Procedure(s): MR lumbar spine wo con Accession Number(s): [id number] cc: [facility]; Claritza Leonard DO EXAMINATION: MR LUMBAR SPINE WITHOUT CONTRAST [...] Cotter MD Signed By: <Electronically signed by Valentino Jones MDin OV> 03/29/24904 DD/ 99 TD/TT: 03/04/241919 Magnet Maker: Claritza Leonard DO IMG MRI PROCEDURES Edited Re sult - Final * Cologuard?? colon cancer screening (02/02/2024 9:15 AM EST) Cologuard Result Negative Negative 02/08/20 2:05 AM EST [facility] (CLIA #:[id number]) Comment: NEGATIVE TEST RESULT. A negative Cologuard [...] (Isadora Rodriguez al, N Engl J Med 2014;370(14):1286- 1297) The normal value (reference range) for this assay is negative. COLOGUARD RE-SCREENING RECOMMENDATION: Periodic colorectal cancer screening is an important part of preventive healthcare for asymptomatic individuals at average risk for colorectal cancer. ??Following a negative Cologuard result, the [place] [employer] and U.S. Multi-Society Task Force screening guidelines recommend a Cologuard re-screening interval of 3 years. References: [place] [employer] Guideline for Colorectal Cancer Screening: https://www.cancer.org/cancer/okrum-jpahff-iltkmz/esktwdsco-xlpeofmlw-twkghqg/ac s-rec ommendations.html.; Hector ABERNATHY, Julio Cesar PEÑA, Janet QUEVEDO, Colorectal Cancer Screening: Recommendations for Physicians and Patients from the U.S. Multi-Society Task Force on Colorectal Cancer Screening , Am J Gastroenterology 2017; 112:9851-0818. TEST DESCRIPTION: Composite algorithmic analysis of stool [...] (Isadora Rodriguez al, N Engl J Med 2014;370(14):1502-2116.) Cologuard may produce a false negative or false positive result (no colorectal cancer or precancerous polyp present at colonoscopy follow up). A negative Cologuard test result does not guarantee the absence of CRC or advanced adenoma (pre-cancer). The current Cologuard screening interval is every 3 years. ([place] [employer] and U.S. Multi-Society Task Force). Cologuard performance data in a 10,000 patient pivotal study using colonoscopy as the reference method can be accessed at the following location: www.[employer]/results. Additional description of the Cologuard test process, warnings and precautions can be found at www.cologuard.com. Stool specimen (specimen) Rectal contents / Unknown 02/02/2024 9:15 AM EST 02/03/2024 10:52 AM EST Marian Crook MD LAB MOLECULAR DIAGNOSTIC S ORDERABLES Final Result [facility] (CLIA #:[id number]) [address] [place] [address], * BI Mammogram Screening Tomosynthesis Bilateral (12/05/2023 3:30 PM EDT) Anatomical Region Laterality Modality Breast Bilateral Mammography 12/05/2023 3:30 PM EDT Narrative 12/19/2023 8:58 AM EDT ? [facility] ? [address] ?[place] [address] ? Mammography Report ? Signed ? Patient: Jose Alberto James,Corina ?MR#: [id number] ?? [id number] ? : 1975 ?Acct:[id number] ? Age/Sex: 48 / F ?ADM Date: 12/05/23 ? Loc: HO.MAMMO ? Attending Dr: Marian Crook MD ? Ordering Physician: Marian Crook MD ?Results: 1Ne ?? gative ? Date of Service: 12/05/23 ?Follow Up: 1 Year From Orig ?? inal Mammogram ? Procedure(s): MM tomosynthesis screening BI ?? Accession Number(s): [id number] ? cc: Marian Crook MD ? EXAMINATION: [...] DD/ 1530 ? TD/TT: 12/05/23 1540 ? Magnet Maker: ? Procedure Note Bonita, Image - 12/19/2023 [facility] [address] [place] [address] Mammography Report Signed Patient: Jose Alberto Yarelis James#: [id number] : 1975Acct:[id number] Age/Sex: 48 / FADM Date: 12/05/23 Loc: HO.MAMMO Attending Dr: Marian Crook MD Ordering Physician: Marian Crook MDResults: 1Ne gatjohn Date of Service: 12/05/23Follow Up: 1 Year From Orig inal Mammogram Procedure(s): MM tomosynthesis screening BI Accession Number(s): [id number] cc: Marian Crook MD EXAMINATION: MM SCREENING [...] Mini Yap DO 12/19/2023 08:55 AM EDT Dictated By: Mini Yap DO Signed By: <Electronically signed by Mini Yap DO in OV> 12/19/23 0855 DD/ 1530 TD/TT: 12/05/23 1540 Magnet Maker: Marian Crook MD IMG BI PROCEDURES Final Result * THINPREP TIS PAP (06/06/2020 2:03 PM EDT) Clinical Information: None given [facility] COMMENT SEE COMMENT [facility] [...] has been evaluated with computer assisted technology. 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 [facility] Interpretation/R esult: Negative for intraepithelial lesion or malignancy. [facility] LMP: NONE GIVEN [facility] Prev. BX: NONE GIVEN [facility] Prev. PAP: NONE GIVEN [facility] SOURCE: None given [facility] Statement Of Adequacy: SEE COMMENT [facility] Comment: Satisfactory for evaluation. Endocervical/transformation zone component present. Age and/or menstrual status not provided 06/06/2020 2:03 PM EDT us Mattie Farr MD LAB PATHOLOGY ORDERABLES Sophie chaudhari Result [facility] [address] * HPV mRNA E6/E7 (06/06/2020 2:03 PM EDT) HPV nRNA E6/E7 Not Detected Not Detected [facility] Comment: Methodology: [employer] Director-Mediated Amplification This assay detects E6/E7 viral messenger RNA (mRNA) from 14 high-risk HPV types (16,18,31,33,35,39,45,51,52,56,58,59,66,68). ? The analytical performance characteristics of this assay have been determined by [employer]. The modifications have not been cleared or approved by the FDA. This assay has been validated pursuant to the CLIA regulations and is used for clinical purposes. ?? For additional information, please refer to http://education.RegalBox/faq/RHA527e1 (This link if provided for information/ educational purposes only.) 06/06/2020 2:03 PM EDT us Mattie Farr MD LAB BLOOD ORDERABLES Final Re sult [facility] [address] from Last 3 Months or Most Recently Relevant to Health Maintenance Insurance [facility] C3 Care Teams Center Hole Reamer Relationship Specialty Start Date End Date Marian Crook MD [address] [place] [address], [place] [address] PCP - General Internal Medicine 09/12/23
--- OUTSIDE RECORDS SUMMARY | 2024-04-22 18:55 | XMS_ITS | Encounter Summary ---
Author Organization [employer] Address [address] [place] [address] 7t [place] [address] Care Team Providers Care Ground Water Contractor Name Role Phone PesotumAlisha nava Primary Care Provider [phone] Marian Crook MD Primary Care Provider + Encounter Details Date Type Department Care Team (Late st Contact Info) Description 04/03/2023 Abstract [facility] [address] [place] [address] Pesotum Alisha [facility] [address] [place] [address] Social History Tobacco Use Types Packs/Day Years [...] documented as of this encounter Care Teams Ground Water Contractor Relationship Specialty Start Date End Date Alisha Hook FNP [address] [place] [address] PCP - General Family Medicine 11/14/21 09/11/23 Marian Crook MD [address] [place] [address] PCP - General Internal Medicine 09/12/23 documented as of this encounter
--- OUTSIDE RECORDS SUMMARY | 2024-04-22 18:55 | XMS_ITS | Encounter Summary ---
Author Organization [employer] Address [address] [facility] 7t [place] [address] Care Team Providers Care Airport Tower Controller Name Role Phone Marian Crook MD Primary Care Provider + Reason for Visit * Reason Onset Date Comments Med Refill 03/25/2024 Encounter Details Date Type Department Care Team (Late st Contact Info) Description 03/25/[address] [facility] [address] [place] [address] Marian Crook MD 230 [place] [address] Social History Tobacco Use Types Packs/Day Years [...] documented as of this encounter Care Teams Airport Tower Controller Relationship Specialty Start Date End Date Marian Crook MD [address] [place] [address] PCP - General Internal Medicine 09/12/23 documented as of this encounter
--- OUTSIDE RECORDS SUMMARY | 2024-04-22 18:55 | XMS_ITS | Encounter Summary ---
Author Organization [employer] Address [address] [facility] 7t [place] [address] Care Team Providers Care Certified Personal Chef Name Role Phone Marian Crook MD Primary Care Provider + Reason for Visit * Reason Comments Med Refill Encounter Details Date Type Department Care Team ([facility] st Contact Info) Description 04/13/2024 Refill [facility]INE 230 [place], [place] [phone] Marian Crook MD 230 [place], [place] [phone] Social History Tobacco Use Types Packs/Day Years [...] documented as of this encounter Care Teams Certified Personal Chef Relationship Specialty Start Date End Date Marian Crook MD [address] [place] [address] PCP - General Internal Medicine 09/12/23 documented as of this encounter
--- OUTSIDE RECORDS SUMMARY | 2024-04-22 18:55 | XMS_ITS | Encounter Summary ---
Author Organization [employer] Address [address] [facility] 7t [place] [address] Care Team Providers Care Window Shade Ring Coverer Name Role Phone Marian Crook MD Primary [...] 10:19 AM EST) Transglutaminase IgA <1.0 U/mL [facility] Comment:Value Interpretation ----- <15.0 Antibody not detected> or = 15.0 Antibody detectedTHIS TEST WAS PERFORMED AT:[facility] [address] [id number] OLIVAS MD 03/27/2024 10:1 9 AM EST 03/27/2024 10:19 AM EST us Generic External Data Provider LAB BLOOD ORDERAB LES Final Result [facility] [address] [place] [address] [phone] documented in this encounter Visit Diagnoses Not on filedocumented in this encounter Additional Health Concerns Assessment Noted Time PHQ-9 Depression Total Score: 22 024 2:02 PM EDT documented as of this encounter Care Teams Window Shade Ring Coverer Relationship Specialty Start Date End Date Marian Crook MD [address] [place] [address] PCP - General Internal Medicine 09/12/23 documented as of this encounter
--- OUTSIDE RECORDS SUMMARY | 2024-04-22 18:55 | XMS_ITS | Encounter Summary ---
Author Organization [employer] [facility] Address [address] [place] [address] 7t [place] [address] Care Team Providers Care Senior Lead Developer Name Role Phone Marian Crook MD Primary Care Provider + Reason for Visit * Reason Comments Med Refill Encounter Details Date Type Department Care Team (Late st Contact Info) Description 11/27/2023 Refill [facility] MED[facility]INE [address] [place] [address] Marian Crook MD [address] [place] [address] Social History Tobacco Use Types Packs/Day Years [...] documented as of this encounter Care Teams Senior Lead Developer Relationship Specialty Start Date End Date Marian Crook MD [address] [place] [address] PCP - General Internal Medicine 09/12/23 documented as of this encounter
--- OUTSIDE RECORDS SUMMARY | 2024-04-22 18:55 | XMS_ITS | Encounter Summary ---
Author Organization [employer] Address [address] [facility] 7t [place] [address] Care Team Providers Care Instructor Hairspring Name Role Phone Marian Crook MD Primary Care Provider + Reason for Visit * Reason Onset Date Comments Stable Imaging Letter 03/30/2024 Encounter Details Date Type Department Care Team ([facility] st Contact Info) Description 03/30/2024 Telephone [facility] MEDICINE [address] [place] [address] Marian Crook MD [address] [place] [address] Stable Imaging Letter Social History Tobacco Use [...] documented as of this encounter Care Teams Instructor Hairspring Relationship Specialty Start Date End Date Marian Crook MD [address] [place] [address] PCP - General Internal Medicine 09/12/23 documented as of this encounter
--- OUTSIDE RECORDS SUMMARY | 2024-04-22 18:55 | XMS_ITS | Encounter Summary ---
Author Organization [employer] Address [address] [place] [address] 7t [place] [address] Care Team Providers Care Academic Records Specialist Name Role Phone Marian Crook MD Primary Care Provider + Reason for Referral * Imaging (Routine) - Closed Specialty Diagnoses / Procedures Referred By Contac t Referred To Contact Radiology Diagnoses Abnormal MRI, lumbar spine Procedures US Pelvis Transvaginal Claritza Leonard DO [address] [place] [address] Phone: tel: fax: [address] Phone: tel: fax: Referral ID Status Reason Start Date Expiration Date Visits Re quested Visits Authorized [id number] Closed 04/09/2024 04/09/2025 1 1 * Imaging (Routine) - Closed Specialty Diagnoses / Procedures Referred By Contac t Referred To Contact Radiology Diagnoses Abnormal MRI, lumbar spine Procedures Us Pelvis complete Claritza Leonard DO [address] [place] [address] Phone: tel: fax: [address] Phone: tel: fax: Referral ID Status Reason Start Date Expiration Date Visits Re quested Visits Authorized [id number] Closed 04/09/2024 04/09/2025 1 1 * Imaging (Routine) - Closed Specialty Diagnoses / Procedures Referred By Lien barragan Referred To Contact Radiology Diagnoses Abnormal MRI, lumbar spine Procedures US RENAL BI Claritza Leonard DO [address] [place] [address] Phone: tel: fax: [address] Phone: tel: fax: Referral ID Status Reason Start Date Expiration Date Visits Re quested Visits Authorized [id number] Closed 04/09/2024 04/09/2025 1 1 Encounter Details Date Type Department Care Team (Late st Contact Info) Description 04/09/2024 Orders Only [facility] [address] [place] [address] Claritza Leonard DO [address] [place] [address] Abnormal MRI, lumbar spine (Primary Dx) Social [...] Type Priority Associated Diagnoses Orde r Schedule Us Pelvis complete Imaging Routine Abnormal MRI, lumbar spine Expected: 04/09/2024, Expires: 04/09/2025 documented as of this encounter Procedures Procedure Name Priority Date/Time Associated Diagnosis Comments US RENAL BI Routine 04/21/2024 12:04 PM EST Abnormal MRI, lumbar spine US PELVIS TRANSVAGINAL Routine 04/20/2024 3:25 PM EST Abnormal MRI, lumbar spine documented in this encounter Results * US RENAL BI (04/21/2024 12:04 PM EST) Anatomical Region Laterality Modality Abdomen Ultrasound 04/21/2024 12:0 4 PM EST Narrative 04/21/2024 12:05 PM EST ? [facility] ?[address] ?[place] [address] ? Ultrasound Report ? Signed ? Patient: Jose Alberto James,Corina ?MR#: [id number] ? : 1975 ?Acct:[id number] ? Age/Sex: 49 / F ?ADM Date: 04/20/24 ? Loc: HO.US ? Attending Dr: Claritza Leonard DO ? Ordering Physician: Claritza Leonard DO ?? Date of Service: 04/20/24 ?? Procedure(s): US renal BI ?? Accession Number(s): [id number] ? cc: Claritza Leonard DO ? CLINICAL [...] DD/ 1204 ? TD/TT: 04/21/24 1204 ? Manager Investment: ? Procedure Note Carli Mesa - 04/21/[address] [address] Ultrasound Report Signed Patient: Jose Alberto JamesYarelis#: [id number] : 1975Acct:[id number] Age/Sex: 49 / FADM Date: 04/20/24 Loc: HO.US Attending Dr: Claritza Leonard DO Ordering Physician: Claritza Leonard DO Date of Service: 04/20/24 Procedure(s): US renal BI Accession Number(s): [id number] cc: Claritza Leonard DO CLINICAL HISTORY: probable [...] OV> 04/21/24 1204 DD/ 1204 TD/TT: 04/21/24 1204 Manager Investment: us Claritza Leonard DO IMG US PROCEDURES Edited Res ult - Final * US Pelvis Transvaginal (04/20/2024 3:25 PM EST) Anatomical Region Laterality Modality Pelvis Ultrasound 04/20/2024 3:25 PM EST Narrative 04/21/2024 9:28 AM EST ? [facility] ?[address] ?[place] [address] ? Ultrasound Report ? Signed ? Patient: Jose Alberto James,Corina ?MR#: [id number] ? : 1975 ?Acct:[id number] ? Age/Sex: 49 / F ?ADM Date: 01/28/25 ? Loc: HO.US ? Attending Dr: Claritza Leonard DO ? Ordering Physician: Claritza Leonard DO ?? Date of Service: 04/20/24 ?? Procedure(s): US pelvic and transvaginal ?? Accession Number(s): [id number] ? cc: Claritza Leonard DO ? EXAMINATION: [...] DD/ 1525 ? TD/TT: 04/20/24 1555 ? Manager Investment: ? Procedure Note Bonita, Image - 04/21/[address] [address] Ultrasound Report Signed Patient: Yarelis Nielsen#: [id number] : 1975Acct:[id number] Age/Sex: 49 / FADM Date: 04/20/24 Loc: HO.US Attending Dr: Claritza Leonard DO Ordering Physician: Claritza Leonard DO Date of Service: 04/20/24 Procedure(s): US pelvic and transvaginal Accession Number(s): [id number] cc: Claritza Leonard DO EXAMINATION: US PELVIS [...] signed by Valentino Jones MDin OV> 04/21/24 09 DD/ 1525 TD/TT: 04/20/24 1555 Manager Investment: us Claritza Leonard DO IMG US PROCEDURES Edited Res ult - Final documented in this encounter Visit Diagnoses Diagnosis Abnormal MRI, lumbar spine- Primary documented in this encounter Additional Health Concerns Assessment Noted Time PHQ-9 Depression Total Score: 22 024 2:02 PM EDT documented as of this encounter Care Teams Academic Records Specialist Relationship Specialty Start Date End Date Marian Crook MD [address] [place] [address] PCP - General Internal Medicine 09/12/23 documented as of this encounter
--- OUTSIDE RECORDS SUMMARY | 2024-04-22 18:55 | XMS_ITS | Encounter Summary ---
Author Organization [employer] Address [address] [facility] 7t [place] [address] Care Team Providers Care Scrap Kettle Tender Name Role Phone Marian Crook MD Primary Care Provider + Reason for Visit * Reason Onset Date Comments Med Refill 03/25/2024 Encounter Details Date Type Department Care Team (Late st Contact Info) Description 03/25/2024 Refill [facility] MEDICINE [address] [place] [address] Claritza Leonard DO 230 [place] [address] Social History Tobacco Use Types Packs/Day Years [...] documented as of this encounter Care Teams Scrap Kettle Tender Relationship Specialty Start Date End Date Marian Crook MD [address] [place] [address] PCP - General Internal Medicine 09/12/23 documented as of this encounter
--- OUTSIDE RECORDS SUMMARY | 2024-04-22 18:55 | XMS_ITS | Encounter Summary ---
Author Organization [employer] Address [address] [facility] 7t [place] [address] Care Team Providers Care Nursing Scheduler Name Role Phone Marian Crook MD Primary Care Provider + Reason for Visit * Reason Onset Date Comments Med Refill 03/25/2024 Encounter Details Date Type Department Care Team (Late st Contact Info) Description 03/25/2024 Refill [facility] [address] [place] [address] Claritza Leonard DO [address] [place] [address] Social History Tobacco Use Types Packs/Day Years [...] documented as of this encounter Care Teams Nursing Scheduler Relationship Specialty Start Date End Date Marian Crook MD [address] [place] [address] PCP - General Internal Medicine 09/12/23 documented as of this encounter
--- OUTSIDE RECORDS SUMMARY | 2024-04-22 18:55 | XMS_ITS | Encounter Summary ---
Author Organization [employer] Address [address] [facility] 7t [place] [address] Care Team Providers Care Shutdown Coordinator Name Role Phone Marian Crook MD Primary Care Provider + Reason for Visit * Reason Onset Date Comments Med Refill 03/25/2024 Encounter Details Date Type Department Care Team ([facility] st Contact Info) Description 03/25/2024 Refill [facility]INE [address] [place] [address] Marian Crook MD [address] [place] [address] Moderate persistent asthma without complication Social History [...] documented as of this encounter Care Teams Shutdown Coordinator Relationship Specialty Start Date End Date Marian Crook MD [address] [place] [address] PCP - General Internal Medicine 09/12/23 documented as of this encounter
== END 2024-04-22 15:18 | disposition home or self-care (01) ==
PROVIDERS: PCP Internal Medicine; Visit Provider Nurse Practitioner Family
DX: M53.3 Sacrococcygeal disorders, not elsewhere classified (principal); M54.16 Radiculopathy, lumbar region; M62.830 Muscle spasm of back; D25.9 Leiomyoma of uterus, unspecified; R93.89 Abnormal findings on diagnostic imaging of other specified body structures; N13.30 Unspecified hydronephrosis
CPT/HCPCS: 99214

== ENCOUNTER → 2024-04-22 15:01 | Outpatient (BNVA) | payer MEDICAID, SELFPAY | PROVIDERS: PCP Internal Medicine; Visit Provider Nurse Practitioner Family | DX: M53.3 Sacrococcygeal disorders, not elsewhere classified (principal); M54.16 Radiculopathy, lumbar region; M62.830 Muscle spasm of back; D25.9 Leiomyoma of uterus, unspecified; R93.89 Abnormal findings on diagnostic imaging of other specified body structures; N13.30 Unspecified hydronephrosis | CPT/HCPCS: 99212 ==

== ENCOUNTER 2024-04-26 16:12 | Emergency (ER) | payer MEDICAID, SELFPAY ==
[2024-04-26 16:38] VITALS: BP 106/58; PULSE 79; RESP 18; TEMP 36.7; O2SAT 97; BMI 31.4
--- NOTE | 2024-04-26 16:39 | ED_ITS ---
HPI - General Adult General Chief complaint: Vaginal Bleeding Stated complaint: Had sonogram about wk ago/bleeding/feels cold Time Seen by Provider: 04/26/24 22:23 Source: patient Mode of arrival: ambulatory Limitations: no limitations History of Present Illness ED Provider: Danni Thompson NP HPI narrative: Patient is a 49-year-old female who presents emergency department for evaluation. She reports in February 2024 she had an MRI due to lower back pain where she was found to have cysts on her kidneys. Subsequently underwent outpatient ultrasound of the kidneys as well as the pelvis she was found to have uterine fibroids. She reports that a couple days after the ultrasound she had some light vaginal spotting. However over the past 4 days she is having heavy vaginal bleeding reports she is changing a pad every hour. She was nervous that she may be becoming anemic because he was feeling cold today. She additionally states that over the past few days she has been experiencing urinary frequency and urgency, mild nausea but no vomiting. Denies fevers. She is awaiting an outpatient follow-up with slot operations manager being established by her primary care doctor. She denies concern for sexually transmitted infections, denies any recent injury. Related Data Home Medications ?Medication ?Instructions ?Recorded ?Confirmed albuterol sulfate 2.5 mg/3 mL 1 vial inhalation Q4H PRN 02/01/22 04/22/24 (0.083 %) solution for nebulization Shortness Of Breath cholecalciferol (vitamin D3) 50 50 mcg PO DAILY 02/18/24 04/22/24 mcg (2,000 unit) tablet (Vitamin D3) ferrous sulfate 325 mg (65 mg 325 mg PO Q OTHER DAY 02/18/24 04/22/24 iron) tablet,delayed release montelukast 10 mg tablet 10 mg PO QAM 02/18/24 04/22/24 lidocaine 5 % topical patch 1 patch topical DAILY 03/26/24 04/22/24 Previous Rx's ?Medication ?Instructions ?Recorded peg 3350-electrolytes 236 240 ml PO Q10M colonoscopy #4,000 02/18/24 gram-22.74 gram-6.74 gram-5.86 mL gram solution (Golytely) Allergies Allergy/AdvReac Type Severity Reaction Status Date / Time No Known Allergies Allergy Verified 04/26/24 16:40 [No Known Allergies*] Review of Systems 2 Review of Systems: Yes all other systems are reviewed and are negative [facility] Past Medical History Attestation statement: The following information was validated with the patient. Source: old records reviewed Medical History Depression Anal fissure Hemorrhoids Chronic RLQ pain Polyuria Dizziness FILIBERTO (obstructive sleep apnea) Moderate persistent asthma in adult without complication Chronic low back pain Iron deficiency Arthritis History of asthma Surgical History S/P laparoscopic sleeve gastrectomy H/O abdominoplasty Family History Family History Mother History of hypertension Arthritis Glaucoma Father Heart problem History of hypertension Brother Heart problem History of hypertension Sister History of hypertension Brother No problems noted. Brother No problems noted. Brother No problems noted. Brother No problems noted. Sister No problems noted. Sister No problems noted. Sister No problems noted. Social History Social History Household Members: Spouse and Children Housing: House Alcohol intake: current Alcohol intake frequency: holidays/special occasions only Patient Tobacco Use Status: Never used Tobacco Smoked in Last 30 Days: No Use of substances other than those prescribed or required for medical reasons: No Advance Directives: No Advance Directives Information Provided: No Do you have a plan to hurt others: No Plan service: No Current occupational status: employed Physical Exam ED Vital Signs: Vital Signs - 24 hr 04/26/24 16:38 04/26/24 20:04 04/26/24 23:15 Temperature 98.0 F 98.3 F 97.7 F Pulse Rate 79 84 88 Respiratory Rate 18 16 18 Blood Pressure 106/58 L 110/57 L 106/60 Pulse Oximetry 97 95 98 Oxygen Delivery Method Room Air Room Air Room Air 04/27/24 01:28 Temperature 98.2 F Pulse Rate 72 Respiratory Rate 18 Blood Pressure 110/52 L Pulse Oximetry 98 Oxygen Delivery Method Room Air BMI result Body Mass Index 31.4 Appearance: Alert.?Oriented to person, place and time. No acute distress.?Normal affect. Eyes: Pupils equal, round and reactive to light.? ENT: Pharynx normal.?? Neck: Normal inspection.? Neck supple.?? CVS: Heart sounds normal. Normal heart rate and rhythm.? Pulses normal.?? Respiratory: No respiratory distress.? Lung sounds clear to auscultation bilaterally?? Abdomen: Soft and non-tender. Normoactive bowel sounds. No CVAT?? Skin: Skin warm and dry.? Normal skin color.? Extremities: No lower extremity edema.? Neuro: Moves all extremities spontaneously. Sensation intact bilaterally. Ambulates with normal steady gait. Course Course Course Narrative: RME performed by Oumou Das PA-C. Patient is a 49 year old assigned female at presenting to the emergency department with vaginal bleeding. Patient states that she has been having issues with vaginal bleeding secondary to uterine fibroids and the bleeding has increased. Limited PE performed in triage showed a well appearing 49 year old with no obvious signs of anemia or distress. Detailed physical exam and review of systems are deferred to the interrelated special education teacher. Labs ordered. Patient placed back in the waiting room pending room availability and results. Medical Decision Making Medical Decision Making [facility] Narrative: Patient is a 49-year-old female presenting to emergency department for evaluation of vaginal bleeding in addition to urinary frequency/urgency and mild nausea but no vomiting. Her abdominal examination is benign. No CVAT. CBC is without leukocytosis anemia thrombocytopenia. No electrolyte derangement. No CLARK. Urinalysis without evidence of infection. Physical exam appears less consistent with evidence to suggest pyelonephritis. For outpatient ultrasound did reveal a 5 mm uterine fibroid. Given the delay vaginal bleeding after her transvaginal ultrasound, I have a lower suspicion that vaginal laceration be the results of her bleeding, unfortunately she declines internal pelvic examination at this time. She reports she was more concerned about whether she was becoming anemic and needed to have a blood transfusion. Despite her 4 days of heavy menstrual bleeding as she mentioned, she is not anemic today. I feel that she is stable for outpatient follow-up with her slot operations manager. Discussed strict return precautions, worrisome signs and symptoms that may indicate anemia/severe anemia. Differential Diagnosis Differential Diagnoses: The differential diagnosis associated with the presentation includes (See narrative above) Admission/Observation Consideration of admission/observation: Escalation of care including admission/observation considered (See narrative above) Lab Data [facility] Lab Attestation statement: I reviewed the patient's lab results. (See narrative above) 04/26/24 16:47 04/26/24 16:47 Labs: Lab Results 04/26/24 04/27/24 Range/Units 16:47 00:31 WBC 6.0 (4.8-10.8) X10*3/uL RBC 4.05 L (4.20-5.50) X10*6/uL Hgb 12.4 (12.0-16.0) g/dl Hct 37.7 (37.0-47.0) % MCV 93.1 (80.0-98.0) fL MCH 30.6 (27.0-33.0) pg MCHC 32.9 (31.0-35.0) g/dl RDW 12.3 (11.0-16.0) % Plt Count 269 (160-400) X10*3/uL MPV 10.9 (9.4-12.3) fL Immature Gran % (Auto) 0.0 (0.0-0.4) % Neut % (Auto) 55.1 (45-73) % Lymph % (Auto) 29.4 (20-40) % [place] % (Auto) 10.6 (2-11) % Eos % (Auto) 3.9 (0-4) % Baso % (Auto) 1.0 (0-2) % Lymph # (Auto) 1.8 (1.2-4.9) X10*3/uL [place] # (Auto) 0.6 (0.1-1.2) X10*3/uL Eos # (Auto) 0.2 (0.0-0.4) X10*3/uL Baso # (Auto) 0.1 (0.0-0.2) X10*3/uL Abs Immat Gran (auto) 0.00 (0.00-0.03) X10*3/uL Absolute Neuts (auto) 3.3 (2.0-8.3) x10*3/uL Absolute Nucleated RBC 0.000 (0.0-0.012) X10*3/uL Nucleated RBC % (auto) 0.0 (0.0-0.2) /100WBC PT 12.0 (10.9-12.4) SEC INR 1.0 (0.9-1.1) APTT 31.7 (26.0-36.8) SEC Sodium 140 (135-145) mmol/L Potassium 4.1 (3.3-5.1) mmol/L Chloride 108 (96-108) mmol/L Carbon Dioxide 28 (22-29) mmol/L Anion Gap 8 L (12-20) BUN 17 H (9-16) mg/dL Creatinine 0.78 (0.5-1.4) mg/dL Estim Creat Clear Calc 84.2 Estimated GFR > 60 Random Glucose 80 (60-115) mg/dL Calcium 9.0 (8.4-10.2) mg/dL Magnesium 1.9 (1.6-2.6) mg/dL Total Bilirubin 0.3 (0.0-1.0) mg/dL AST 21 (5-31) U/L ALT 14 (0-31) U/L Alkaline Phosphatase 72 (39-117) U/L Total Protein 7.6 (6.5-8.0) g/dL Albumin 4.1 (3.5-5.0) g/dL Urine Color Yellow Urine Appearance Clear Urine pH 5.5 (5.0-9.0) Ur Specific [place] 1.020 (1.005-1.025) Urine Protein Negative (Neg-Trace) mg/dL Urine Glucose (UA) Negative (Negative) mg/dL Urine Ketones Negative (Negative) mg/dL Urine Blood Moderate (2+) H (Negative) Urine Nitrite Negative (Negative) Ur Leukocyte Esterase Negative (Negative) Urine RBC >20 H (0-2) /HPF Urine WBC 0-5 (0-5) /HPF Ur Squamous Epith Cells 0-2 (0-2) /HPF Urine Bacteria None Seen (None Seen) Hyaline Casts 0-2 (0-2) /LPF External Record Review External record reviewed: Outpatient record and Prior outpatient radiology (04/21/2024 uterine fibroids largest measuring 5 cm) Discharge Plan Discharge Clinical Impression: Dysfunctional uterine bleeding Patient Disposition: Home, Self-Care Instructions: Dysfunctional Uterine Bleeding (ED) Additional Instructions: Urine testing today does not show evidence of infection. Your blood counts are normal there is no signs of significant anemia that would warrant a blood transfusion. As discussed it is important that you follow-up closely with slot operations manager, contact your doctor's office tomorrow morning to determine where the referral has been sent so that you can arrange for follow-up. You may return at any time with new or worsening symptoms or concerns. Prescriptions: No Action albuterol sulfate 2.5 mg /3 mL (0.083 %) solution for nebulization 1 vial inhalation Q4H PRN (Reason: Shortness Of Breath) lidocaine 5 % adhesive patch,medicated 1 patch topical DAILY montelukast 10 mg tablet 10 mg PO QAM ferrous sulfate 325 mg (65 mg iron) tablet,delayed release (DR/EC) 325 mg PO Q OTHER DAY cholecalciferol (vitamin D3) [Vitamin D3] 50 mcg (2,000 unit) tablet 50 mcg PO DAILY peg 3350-electrolytes [Golytely] 236-22.74-6.74 -5.86 gram recon soln 240 ml PO Q10M Qty: 4000 0RF Rx Instructions: as per split prep instructions, until fecal effluent is clear Referrals: Marian Crook MD [Primary Care Provider] - Pj Posadas MD [Physician] - Interventions: ED Discharge Assessment Last Done: 04/27/24 01:28 Discharge Date/Time: 04/27/24 01:28 Print Language: [place]
[2024-04-26 16:51] LABS: MANUAL DIFF FLAG NO
[2024-04-26 16:52] LABS: Basophils Absolute Auto 0.1 X10*3/uL (0.0-0.2); Eosinophils Absolute Auto 0.2 X10*3/uL (0.0-0.4); Eosinophils Percent Auto 3.9 % (0-4); Hematocrit 37.7 % (37.0-47.0); Hemoglobin 12.4 g/dl (12.0-16.0); Lymphocytes Absolute Auto 1.8 X10*3/uL (1.2-4.9); Lymphocytes Percent Auto 29.4 % (20-40); Mean Corpuscular HGB Conc 32.9 g/dl (31.0-35.0); Mean Corpuscular Hemoglobin 30.6 pg (27.0-33.0); Mean Corpuscular Volume 93.1 fL (80.0-98.0); Mean Platelet Volume 10.9 fL (9.4-12.3); Monocytes Absolute Auto 0.6 X10*3/uL (0.1-1.2); Monocytes Percent Auto 10.6 % (2-11); Neutrophils Absolute Auto 3.3 x10*3/uL (2.0-8.3); Neutrophils Percent Auto 55.1 % (45-73); Platelet Count 269 X10*3/uL (160-400); Red Blood Count 4.05 X10*6/uL (4.20-5.50); Red Cell Distribution Width 12.3 % (11.0-16.0)
[2024-04-26 17:08] LABS: Alanine Aminotransferase 14 U/L (0-31); Albumin Level 4.1 g/dL (3.5-5.0); Alkaline Phosphatase 72 U/L (39-117); Anion Gap 8 (12-20); Aspartate Amino Transferase 21 U/L (5-31); Bilirubin Total 0.3 mg/dL (0.0-1.0); Blood Urea Nitrogen 17 mg/dL (9-16); Carbon Dioxide 28 mmol/L (22-29); Chloride 108 mmol/L (96-108); Creatinine Clr Calc Pharmacy 84.2; Estimated Glomerular Filt Rate > 60; Glucose Random 80 mg/dL (60-115); Magnesium 1.9 mg/dL (1.6-2.6); Partial Thromboplastin Time 31.7 SEC (26.0-36.8); Potassium 4.1 mmol/L (3.3-5.1); Sodium 140 mmol/L (135-145); Total Protein 7.6 g/dL (6.5-8.0)
[2024-04-26 20:04] VITALS: BP 110/57; PULSE 84; RESP 16; TEMP 36.8; O2SAT 95
--- OUTSIDE RECORDS SUMMARY | 2024-04-26 22:23 | XMS_ITS | Encounter Summary ---
Author Organization [employer] Address [address] [facility] 7t [place] [address] Care Team Providers Care Business Controller Name Role Phone Marian Crook MD Primary Care Provider + Reason for Visit * Reason Onset Date Comments Med Refill 03/25/2024 Encounter Details Date Type Department Care Team ([facility] st Contact Info) Description 03/25/2024 Refill [facility] MED[facility]INE [address] [place] [address] Marian Crook MD [address] [place] [address] Moderate persistent asthma without complication Social History [...] as of this encounter Plan of Treatment Upcoming Encounters Date Type Department Care Team (Late st Contact Info) Description 07/02/2024 11:45 AM EDT Office Visit [facility] [address] [place] [phone] Marian Crook MD [address] [place] [address] documented as of this encounter Visit Diagnoses Diagnosis Moderate persistent asthma without complication documented in this encounter Additional Health Concerns Assessment Noted Time PHQ-9 Depression Total Score: 22 024 2:02 PM EDT documented as of this encounter Care Teams Business Controller Relationship Specialty Start Date End Date Marian Crook MD [address] [place] [id number] PCP - General Internal Medicine 09/12/23 documented as of this encounter
--- OUTSIDE RECORDS SUMMARY | 2024-04-26 22:23 | XMS_ITS | Encounter Summary ---
Author Organization [employer] Address [address] [facility] 7t [place] [address] Care Team Providers Care Sales Representative [facility]om[facility] Name Role Phone Marian Crook MD Primary Care Provider + Reason for Visit * Reason Onset Date Comments Med Refill 03/25/2024 Encounter Details Date Type Department Care Team (Late st Contact Info) Description 03/25/2024 Refill [facility] MED[facility]INE [address] [place] [address] Marian Crook MD [address] [place] [address] Social History Tobacco Use Types Packs/Day Years [...] Description 07/02/2024 11:45 AM EDT Office Visit [facility] MED[facility]INE [address] [place] [address] Marian Crook MD [address] [place] [address] documented as of this encounter Visit Diagnoses Not on filedocumented in this encounter Additional Health Concerns Assessment Noted Time PHQ-9 Depression Total Score: 22 024 2:02 PM EDT documented as of this encounter Care Teams Sales Representative Wom[facility] Relationship Specialty Start Date End Date Marian Crook MD [address] [place] [id number] PCP - General Internal Medicine 09/12/23 documented as of this encounter
--- OUTSIDE RECORDS SUMMARY | 2024-04-26 22:23 | XMS_ITS | Encounter Summary ---
Author Organization [employer] Address [address] [facility] 7t [place] [address] Care Team Providers Care Toll Settlement Clerk Name Role Phone Marian Crook MD Primary Care Provider + Reason for Visit * Reason Onset Date Comments Med Refill 03/25/2024 Encounter Details Date Type Department Care Team (Late st Contact Info) Description 03/25/2024 Refill [facility] MED[facility]INE [address] [place] [address] Claritza Leonard DO [address] [place] [address] Social History Tobacco Use Types Packs/Day Years [...] 11:45 AM EDT Office Visit [facility] [address] [place] [address] Marian Crook MD [address] [place] [address] documented as of this encounter Visit Diagnoses Not on filedocumented in this encounter Additional Health Concerns Assessment Noted Time PHQ-9 Depression Total Score: 22 024 2:02 PM EDT documented as of this encounter Care Teams Toll Settlement Clerk Relationship Specialty Start Date End Date Marian Crook MD [address] [place] [phone] PCP - General Internal Medicine 09/12/23 documented as of this encounter
--- OUTSIDE RECORDS SUMMARY | 2024-04-26 22:24 | XMS_ITS | Encounter Summary ---
Author Organization [email or web address] Address [address] [facility] 7t [place] [address] Care Team Providers Care Marketing Services Vice President Name Role Phone Marian Crook MD Primary Care Provider + Reason for Visit * Reason Onset Date Comments Results 04/26/2024 Encounter Details Date Type Department Care Team ([facility] st Contact Info) Description 04/26/2024 Telephone [facility] MED[facility]INE [address] [place], [place] [phone] Lina Yarbrough RN [address] [place] [address] Results Social History Tobacco Use Types Packs/Day [...] Telephone Encounter - Lina Yarbrough RN - 04/26/2024 3:20 PM EST TC placed to patient [phone] to inform of below results. Patient verbalized understanding and is aware of referral to urology. Patient is also symptomatic r/t uterine fibroids and wants referralto [facility]. RN advised patient, Dr. Leonard will place referral to urology and [facility] [facility] [facility] and patient will receive a TC or a letter in the mail with appointments date and time. Patient verbalized understanding. Patient reported she has been experiencing heavy vaginal bleeding since Friday. Patient reports filling 1 pad in less than an hour. Patient also reports changing her pad 5 times overnight and needingto urinate q20 mins. Patient reports a few clots and reports feeling dizzy. Patient advised to seek ED care today for further evaluation and to have CBC checked. Patient verbalized understanding and reports she will go to [facility] ED now. Patient advised to call [facility] once discharged for ED f/u appointment. Patient to f/u PRN. * Telephone Encounter - Paulino Arizmendi - 04/26/2024 2:51 PM EST Tc from pt returning call regarding prior message. Contact pt at [phone] * Telephone Encounter - Lina Yarbrough RN - 04/26/2024 9:04 AM EST TC placed to patient [phone] to inform of US results. Patients pelvic US confirmed uterine fibroids largest being 5cm and PCP will refer patient to [employer] C[employer] [facility] if symptomatic heavy menstrual periods, pelvic pain, pain during intercourse, etc) otherwise PCP will continue to monitor. Renal US confirmed renal cysts which are most likely benign however PCP will refer patient to urology. Patient did not answer, RN left VM requesting CB to red team nurses. RN will re-attempt in PM. ----- Message from Juliet Michel sent at 04/23/2024 10:49 AM EST ----- maureen Herbert is requesting kidney US and Pelvis US results. documented in this encounter Plan of Treatment Upcoming Encounters Date Type Department Care Team (Late st Contact Info) Description 07/02/2024 11:45 AM EDT Office Visit [facility] [address] [place] [address] Marian Crook MD [address] [place] [address] documented as of this encounter Visit Diagnoses Not on filedocumented in this encounter Additional Health Concerns Assessment Noted Time PHQ-9 Depression Total Score: 22 024 2:02 PM EDT documented as of this encounter Care Teams Marketing Services Vice President Relationship Specialty Start Date End Date Marian Crook MD [address] [place] [address] PCP - General Internal Medicine 09/12/23 documented as of this encounter
--- OUTSIDE RECORDS SUMMARY | 2024-04-26 22:24 | XMS_ITS | Encounter Summary ---
Author Organization [employer] Address [address] [facility] [address] [place] [address] Care Team Providers Care Alarm Security Or Surveillance Monitor Name Role Phone Marian Crook MD Primary Care Provider + Encounter Details Date Type Department Care Team (Late st Contact Info) Description 03/26/2024 Orders Only [facility] External Provider, [facility] Social History Tobacco Use Types Packs/Day [...] Description 07/02/2024 11:45 AM EDT Office Visit [facility] MED[facility]INE [address] [place] [address] Marian Crook MD [address] [place], [place] [phone] documented as of this encounter Procedures Procedure Name Priority Date/Time Associated Diagnosis Comments XR HIP 2 OR 3 VIEWS LEFT Routine 03/29/2024 1:06 PM EST documented in this encounter Results * XR Hip 2 or 3 Views Left (03/29/2024 1:06 PM EST) Anatomical Region Laterality Modality Lower Extremities, Hip Left Radiograp hic Imaging 03/29/2024 1:06 PM EST Narrative 03/29/2024 1:08 PM EST ? [facility] ?[address] ?[place] [address] ?XRay Report ? Signed ? Patient: Abrams James,Corina ?MR#: [id number] ?? [id number] ? : 1975 ?Acct:[id number] ? Age/Sex: 49 / F ?ADM Date: 03/26/24 ? Loc: HO.XRAY ? Attending Dr: Jada CLEMENT ? Ordering Physician: Jada Cervantes ?? Date of Service: 03/26/24 ?? Procedure(s): XR hip LT min 2V w/wo pel ?? Accession Number(s): [id number] ? cc: Jada Cervantes; Marian Crook MD [...] in OV> ? 03/29/24 1307 ? DD/ 05 ? TD/TT: 03/29/241305 ? Scoop Operator: ? Procedure Note Bonita, Carli - 03/29/2024 [place] [address] XRay Report Signed Patient: Yarelis Nielsen#: [id number] : 1975Acct:[id number] Age/Sex: 49 / FADM Date: 03/26/24 Loc: HO.XRAY Attending Dr: Jada CLEMENT Ordering Physician: Jada Cervantes Date of Service: 03/26/24 Procedure(s): XR hip LT min 2V w/wo pel Accession Number(s): [id number] cc: Jada Cervantes; Marian Crook MD CLINICAL [...] 03/29/24 1307 DD/ 1306 TD/TT: 03/29/24 1306 Scoop Operator: [facility] External Provider IMG XR PROCEDURES Edited Result - Final documented in this encounter Visit Diagnoses Not on filedocumented in this encounter Additional Health Concerns Assessment Noted Time PHQ-9 Depression Total Score: 22 024 2:02 PM EDT documented as of this encounter Care Teams Alarm Security Or Surveillance Monitor Relationship Specialty Start Date End Date Marian Crook MD [address] [place] [phone] PCP - General Internal Medicine 09/12/23 documented as of this encounter
--- OUTSIDE RECORDS SUMMARY | 2024-04-26 22:24 | XMS_ITS | Clinical Summary ---
Author Organization [employer] Address [address] [place] [address] [address] [place] [address] Care Team Providers Care Composition Weatherboard Installer Name Role Phone Marian Crook MD Primary [...] for this letter, she has appt with [facility] next week. I told her to reach out to legal transcriber to help her write a letter so that housing give her some more time to get the letter from MH provider. She will res tart Effexor for anxiety and fu with me in 6m Encounters Date Type Department Care Team Description 04/26/2024 Orders Only GENERIC EXTERNAL DATA DEPARTMENT Provider, Generic External Data 04/26/2024 Telephone [facility] [address] [place] [address] Lina Yarbrough, MOIRA Results 04/23/2024 Telephone [facility] [address] [place] [address] Marian Crook MD June04/13/2024 Refill [facility] [address] [place] [address] Marian Crook MD 04/09/2024 Orders Only [facility] [address] [place] [address] Claritza Leonard DO Abnormal MRI, lumbar spine (Primary Dx) 03/30/2024 Telephone [facility] [address] [place] [address] Marian Crook MD Results 03/30/2024 Telephone [facility] [address] [place] [address] Marian Crook MD Stable Imaging Letter 03/30/2024 Telephone [facility] [address] [place] [address] Marian Crook MD Call Back Requested 03/27/2024 Orders Only GENERIC EXTERNAL DATA DEPARTMENT Provider, Generic External Data 03/26/2024 Orders Only [facility] External Provider, [facility] 03/25/2024 Refill [facility] [address] [place] [address] Marian Crook MD Moderate persistent asthma without complication 03/25/2024 Refill [facility] [address] [place] [address] Marian Crook MD 03/25/2024 Refill [facility] [address] [place] [address] Claritza Leonard, DO 03/25/2024 Refill [facility] [address] [place] [address] Claritza Leonard, DO 03/22/2024 Telephone [facility] [address] [place] [address] Claritza Leonard, DO 03/19/2024 Telephone [facility] [address] [place] [address] Marian Crook MD Results 03/05/2024 Refill [facility] [address] [place] [address] Claritza Leonard, DO 03/01/2024 Telephone [facility] [address] [place] [address] Marian Crook MD Nurse Triage 02/26/2024 12:00 PM EST Office Visit [facility] [address] [place] [address] Claritza Leonard, DO Folliculitis (Primary Dx); Chronic bilateral low back pain with left-sided sciatica 02/26/2024 Travel 02/26/2024 Telephone [facility] [address] [place] [address] Marian Crook MD Nurse Triage 02/24/2024 Refill [facility] [address] [place], [place] [phone] Marian Crook MD 02/01/2024 Refill [facility] [address] [place], [place] [phone] Marian Crook MD from Last 3 Months [...] 02/26/2024 12:02 PM EST Plan of Treatment Upcoming Encounters Date Type Department Care Team (Late st Contact Info) Description 07/02/2024 11:45 AM EDT Office Visit [facility] [address] [place] [address] Marian Crook MD [address] [place] [address] Health Maintenance Due Date Last Done Comments [...] Procedure Name Priority Date/Time Associated Diagnosis Comments APTT Routine 04/26/2024 4:47 PM EST PROTHROMBIN TIME-INR Routine 04/26/2024 4:47 PM EST MAGNESIUM Routine 04/26/2024 4:47 PM EST COMPREHENSIVE METABOLIC PANEL Routine 04/26/2024 4:47 PM EST CBC WITH AUTO DIFFERENTIAL Routine 04/26/2024 4:47 PM EST US RENAL BI Routine 04/21/2024 12:04 PM [...] Recently Relevant to Health Maintenance Results * (ABNORMAL) CBC auto differential (04/26/2024 4:47 PM EST) White Blood Count 6.0 4.8 - 10.8 X10*3/uL [facility] Red Blood Count 4.05(L) 4.20 - 5.50 X10*6/uL [facility] Hemoglobin 12.4 12.0 - 16.0 g/dl [facility] Hematocrit 37.7 37.0 - 47.0 % [facility] Mean Corpuscular Volume 93.1 80.0 - 98.0 fL [facility] Mean Corpuscular Hemoglobin 30.6 27.0 - 33.0 pg [facility] Mean Corpuscular HGB Conc 32.9 31.0 - 35.0 g/dl [facility] Red Cell Distribution Width 12.3 11.0 - 16.0 % [facility] Platelet Count 269 160 - 400 X10*3/uL [facility] Mean Platelet Volume 10.9 9.4 - 12.3 fL [facility] Neutrophils Percent Auto 55.1 45 - 73 % [facility] Imm Gran Pct Auto 0.0 0.0 - 0.4 % [facility] Lymphocytes Percent Auto 29.4 20 - 40 % [facility] Monocytes Percent Auto 10.6 2 - 11 % [facility] Eosinophils Percent Auto 3.9 0 - 4 % [facility] Basophils Percent Auto 1.0 0 - 2 % [facility] NRBC Pct Auto 0.0 0.0 - 0.2 /100WBC [facility] Neutrophils Absolute Auto 3.3 2.0 - 8.3 x10*3/uL [facility] Imm Gran Abs Auto 0.00 0.00 - 0.03 X10*3/uL [facility] Lymphocytes Absolute Auto 1.8 1.2 - 4.9 X10*3/uL [facility] Monocytes Absolute Auto 0.6 0.1 - 1.2 X10*3/uL [facility] Eosinophils Absolute Auto 0.2 0.0 - 0.4 X10*3/uL [facility] Basophils Absolute Auto 0.1 0.0 - 0.2 X10*3/uL [facility] NRBC Abs Auto 0.000 0.0 - 0.012 X10*3/uL [facility] 04/26/2024 4:47 PM EST 04/26/2024 4:50 PM EST Generic External Data Provider LAB BLOOD ORDERAB LES Final Result Performing Organization Address [facility] Co de Phone Number [facility] [address] [place] [phone] * Partial Thromboplastin Time, Activated (APTT) (04/26/2024 4:47 PM EST) Partial Thromboplastin Time 31.7 26.0 - 36.8 SEC [facility] Comment:For information rega rding the monitoring of direct thrombininhibitors, please refer to Pharmacy. 04/26/2024 4:47 PM EST 04/26/2024 4:50 PM EST [employer] External Data Provider LAB BLOOD ORDERAB LES Final Result Performing Organization Address [facility] Phone Number [facility] [address] [place] [phone] * Prothrombin Time-INR (04/26/2024 4:47 PM EST) Prothrombin Time 12.0 10.9 - 12.4 SEC [facility] INTERNATIONAL NORM RATIO 1.0 0.9 - 1.1 [facility] Comment:INTERNATIONAL NORMAL IZED RATIO (INR) REFERENCE RANGES Reference RangeFor patients not on anticoagulant therapy: 0.9 - 1.1INR ranges for oral anticoagulanttherapy:For prevention and treatment of venous thrombosis and pulmonary embolism: 2.0 - 3.0For acute myocardial infarction with aspirin therapy: 2.0 - 3.0For acute myocardial infarction without aspirin therapy: 3.0 - 4.0For patients with mechanical prosthetic heart valves: 2.5 - 3.5 04/26/2024 4:47 PM EST 04/26/2024 4:50 PM EST us Generic External Data Provider LAB BLOOD ORDERAB LES Final Result Performing Organization Address City/[facility]/ZIP Co de Phone Number [facility] [address] [place] [phone] * Magnesium (04/26/2024 4:47 PM EST) Magnesium 1.9 1.6 - 2.6 mg/dL [facility] 04/26/2024 4:47 PM EST 04/26/2024 4:50 PM EST us Generic External Data Provider LAB BLOOD ORDERAB LES Final Result Performing Organization Address [facility] Co de Phone Number [facility] [address] [place] [phone] * (ABNORMAL) Comprehensive Metabolic Panel (04/26/2024 4:47 PM EST) Sodium 140 135 - 145 mmol/L [facility] Potassium 4.1 3.3 - 5.1 mmol/L [facility] Chloride 108 96 - 108 mmol/L [facility] Carbon Dioxide 28 22 - 29 mmol/L [facility] Anion Gap 8(L) 12 - 20 [facility] Urea Nitrogen (BUN) 17(H) 9 - 16 mg/dL [facility] Creatinine, Serum 0.78 0.5 - 1.4 mg/dL [facility] Creatinine Clr Calc Pharmacy 84.2 [facility] Comment:Provided height and weight: 157.48 cm,77.8 kg.eGFR (calculated from the MDRD study equation) and eCrCl(calculated from the Cockcroft-Gault equation) are based ondifferent parameters and may not yield comparable results.If eCrCl result is absurd, please check patient'sheight/weight. Estimated Glomerular Filt Rate >60 [facility] Comment:Chronic Kidney Disea se: Estimated GFR < 60 mL/min/1.48h1Gujjyf Kidney Disease: Estimated GFR < 15 mL/min/1.73m2 Glucose 80 60 - 115 mg/dL [facility] Calcium 9.0 8.4 - 10.2 mg/dL [facility] Bilirubin, Total 0.3 0.0 - 1.0 mg/dL [facility] Aspartate Amino Transferase 21 5 - 31 U/L [facility] Alanine Aminotransferase 14 0 - 31 U/L [facility] Total Protein 7.6 6.5 - 8.0 g/dL [facility] Albumin Level 4.1 3.5 - 5.0 g/dL [facility] Alkaline Phosphatase 72 39 - 117 U/L [facility] 04/26/2024 4:47 PM EST 04/26/2024 4:50 PM EST us Generic External Data Provider LAB BLOOD ORDERAB LES Final Result Performing Organization Address [facility]/State/[facility] Co de Phone Number [facility] [address] [place] [phone] [phone] * US RENAL BI (04/21/2024 12:04 PM EST) Anatomical Region Laterality Modality Abdomen Ultrasound 04/21/2024 12:0 4 PM EST Narrative 04/21/2024 12:05 PM EST ? [facility] ?[address] ?[place] [address] ? Ultrasound Report ? Signed ? Patient: Abrams James,Corina ?MR#: [id number] ?? [id number] ? : 1975 ?Acct:[id number] ? Age/Sex: 49 / F ?ADM Date: 01/28/25 ? Loc: HO.US ? Attending Dr: Claritza Leonard DO ? Ordering Physician: Claritza Leonard DO ?? Date of Service: 04/20/24 ?? Procedure(s): US renal BI ?? Accession Number(s): [id number] ? cc: Claritza Leonard DO ? CLINICAL [...] DD/ 1204 ? TD/TT: 04/21/24 1204 ? Marketing Operations Intern: ? Procedure Note Bonita, Image - 04/21/2024 [place] [address] Ultrasound Report Signed Patient: Yarelis Nielsen#: [id number] : 1975Acct:[id number] Age/Sex: 49 / FADM Date: 04/20/24 Loc: HO.US Attending Dr: Claritza Leonard DO Ordering Physician: Claritza Leonard DO Date of Service: 04/20/24 Procedure(s): US renal BI Accession Number(s): [id number] cc: Claritza Leonard DO CLINICAL HISTORY: probable [...] 04/21/24 1204 DD/ 1204 TD/TT: 04/21/24 1204 Marketing Operations Intern: us Claritza Maeyashira DO IMG US PROCEDURES Edited Res ult - Final * US Pelvis Transvaginal (04/20/2024 3:25 PM EST) Anatomical Region Laterality Modality Pelvis Ultrasound 04/20/2024 3:25 PM EST Narrative 04/21/2024 9:28 AM EST ? [facility] ?[address] ?[place] [address] ? Ultrasound Report ? Signed ? Patient: Corina Nielsen ?MR#: [id number] ?? [id number] ? : 1975 ?Acct:[id number] ? Age/Sex: 49 / F ?ADM Date: 04/20/24 ? Loc: HO.US ? Attending Dr: Claritza Leonard DO ? Ordering Physician: Claritza Leonard DO ?? Date of Service: 04/20/24 ?? Procedure(s): US pelvic and transvaginal ?? Accession Number(s): [id number] ? cc: Claritza Leonard DO ? EXAMINATION: [...] Guerra MD ??04/21/2024 09:26 AM ?? EST ? Dictated By: ?Valentino Cotter MD ? Signed By: ?<Electronically signed by Valentino Jones MD in OV> ? 04/21/24 0926 ? DD/ 1525 ? TD/TT: 04/20/24 1555 ? Marketing Operations Intern: ? Procedure Note Carli Mesa - 04/21/2024 [place] [address] Ultrasound Report Signed Patient: Yarelis Nielsen#: [id number] : 1975Acct:[id number] Age/Sex: 49 / FADM Date: 04/20/24 Loc: HO.US Attending Dr: Claritza Leonard DO Ordering Physician: Claritza Leonard DO Date of Service: 04/20/24 Procedure(s): US pelvic and transvaginal Accession Number(s): [id number] cc: Claritza Leonard DO EXAMINATION: US PELVIS [...] Valentino Guerra MD 04/21/2024 09:26 AM EST RP Dictated By: Valentino Cotter MD Signed By: <Electronically signed by Valentino Jones MDin OV> 04/21/24 0926 DD/ 1525 TD/TT: 04/20/24 1555 Marketing Operations Intern: us Claritza Leonard DO IMG US PROCEDURES Edited Res ult - Final * XR Hip 2 or 3 Views Left (03/29/2024 1:06 PM EST) Anatomical Region Laterality Modality Lower Extremities, Hip Left Radiograp hic Imaging 03/29/2024 1:06 PM EST Narrative 03/29/2024 1:08 PM EST ? [facility] ?[address] ?[place] [address] ?XRay Report ? Signed ? Patient: Abrams James,Corina ?MR#: [id number] ?? [id number] ? : 1975 ?Acct:[id number] ? Age/Sex: 49 / F ?ADM Date: /03/25 ? Loc: HO.XRAY ? Attending Dr: Jada CLEMENT ? Ordering Physician: Jada Cervantes ?? Date of Service: 03/26/24 ?? Procedure(s): XR hip LT min 2V w/wo pel ?? Accession Number(s): [id number] ? cc: Jada Cervantes; Marian Crook MD [...] DD/ 1306 ? TD/TT: 03/29/24 1306 ? Marketing Operations Intern: ? Procedure Note Bonita, Image - 03/29/[address] [address] XRay Report Signed Patient: Yarelis Nielsen#: [id number] : 1975Acct:[id number] Age/Sex: 49 / FADM Date: 03/26/24 Loc: ABIODUN Attending Dr: Jada CLEMENT Ordering Physician: Jada Cervantes Date of Service: 03/26/24 Procedure(s): XR hip LT min 2V w/wo pel Accession Number(s): [id number] cc: Jada Cervantes; Marian Crook MD CLINICAL [...] 03/29/24 1307 DD/ 1306 TD/TT: 03/29/24 1306 Marketing Operations Intern: [facility] External Provider IMG XR PROCEDURES Edited Result - Final * Hepatitis C Ab (03/27/2024 10:19 AM EST) Hepatitis C Antibody Nonreactive Nonreactive [facility] Comment:Antibodies to HCV no t detected; does not exclude early acuteHCV infection. 03/27/2024 10:1 9 AM EST 03/27/2024 10:19 AM EST Generic External Data Provider LAB BLOOD ORDERAB LES Final Result Performing Organization Address City/[facility]/ZIP Co de Phone Number [facility] [address] [place] [phone] * TSH with Reflex to Free T4 (03/27/2024 10:19 AM EST) TSH reflex Free T4 0.59 0.32 - 4.0 uIU/mL [facility] 03/27/2024 10:1 9 AM EST 03/27/2024 10:19 AM EST Generic External Data Provider LAB BLOOD ORDERAB LES Final Result Performing Organization Address City/[facility]/ZIP Co de Phone Number [facility] [address] [place] [phone] * (ABNORMAL) Iron And Total Iron Binding Capacity (03/27/2024 10:19 AM EST) Iron 298(H) 30 - 160 mcg/dL [facility] Total Iron Binding Capacity 323 228 - 428 mcg/dL [facility] Percent Iron Saturation 92(H) 15 - 50 % [facility] Unsaturated Iron Binding <25 ug/dL [facility] 03/27/2024 10:1 9 AM EST 03/27/2024 10:19 AM EST Generic External Data Provider LAB BLOOD ORDERAB LES Final Result Performing Organization Address [facility] Phone Number [facility] [address] [place] [phone] * Hepatitis A Antibody, Total (03/27/2024 10:19 AM EST) Hepatitis A Antibody IgG Nonreactive Nonreactive [facility] 03/27/2024 10:1 9 AM EST 03/27/2024 10:19 AM EST Generic External Data Provider LAB BLOOD ORDERAB LES Final Result Performing Organization Address [facility] [address] [place] [address] [phone] * Tissue Transglutaminase Antibody, IgA (03/27/2024 10:19 AM EST) Transglutaminase IgA <1.0 U/mL [facility] Comment:Value Interpretation ----- <15.0 Antibody not detected> or = 15.0 Antibody detectedTHIS TEST WAS PERFORMED AT:[facility] [place] [phone] OLIVAS MD 03/27/2024 10:1 9 AM EST 03/27/2024 10:19 AM EST Generic External Data Provider LAB BLOOD ORDERAB LES Final Result Performing Organization Address [facility] de Phone Number [facility] [address] [place] [phone] * Hepatitis B surface antigen, EIA (03/27/2024 10:19 AM EST) Hepatitis B Surface Ag Negative Negative [facility] 03/27/2024 10:1 9 AM EST 03/27/2024 10:19 AM EST us Generic External Data Provider LAB BLOOD ORDERAB LES Final Result Performing Organization Address [facility] Co de Phone Number [facility] [address] [place] [phone] * Hepatitis B Core Antibody, Total (03/27/2024 10:19 AM EST) Hepatitis B Core Antibody Nonreactive Nonreactive [facility] 03/27/2024 10:1 9 AM EST 03/27/2024 10:19 AM EST Generic External Data Provider LAB BLOOD ORDERAB LES Final Result Performing Organization Address [facility] Number [facility] [address] [place] [address] [phone] * HIV-1/2 Antigen and Antibodies, Fourth Generation, with Reflexes (03/27/2024 10:19 AM EST) HIV AB/AG Nonreactive Nonreactive [facility] Comment:HIV-1 p24 Ag and/or HIV-1/HIV-2 Ab not detected.A test result that is nonreactive does not exclude thepossibility of exposure to or infection with HIV-1 and/orHIV-2. Nonreactive results in this assay for individualswith prior exposure to HIV-1 and/or HIV-2 may be due toantigen and antibody levels that are below the limit ofdetection of this assay.[employer] HIV Ag/Ab Combo assay result andsupplemental assay results should be interpreted inconjunction with the patient's clinical presentation,history and other laboratory results. If the results areinconsistent with clinical evidence, additional testing issuggested to confirm the result. 03/27/2024 10:1 9 AM EST 03/27/2024 10:19 AM EST us Generic External Data Provider LAB BLOOD ORDERAB LES Final Result Performing Organization Address [facility] Co de Phone Number [facility] [address] [place] [phone] * Hepatitis B Surface Antibody, Qualitative (03/27/2024 10:19 AM EST) Pathologist [facility] ~Hepatitis B Surface Antibody REACTIVE Nonreactive [facility] Comment:REACTIVE: > 11.99 mI U/mL 03/27/2024 10:1 9 AM EST 03/27/2024 10:19 AM EST us Generic External Data Provider LAB BLOOD ORDERAB LES Final Result Performing Organization Address [facility] Co de Phone Number [facility] [address] [place] [phone] * C-reactive Protein (03/27/2024 10:19 AM EST) [facility] C Reactive Protein <0.04 < or = 0.50 mg/dL [facility] 03/27/2024 10:1 9 AM EST 03/27/2024 10:19 AM EST us Generic External Data Provider LAB BLOOD ORDERAB LES Final Result Performing Organization Address [facility] Phone Number [facility] [address] [place] [phone] * Immunoglobulin A (03/27/2024 10:19 AM EST) Pathologist [facility] Immunoglobulin A 269 47 - 310 mg/dL [facility] Comment:THIS TEST WAS PERFOR MED AT:[facility] [place] [phone] OLIVAS MD 03/27/2024 10:1 9 AM EST 03/27/2024 10:19 AM EST us Generic External Data Provider LAB BLOOD ORDERAB LES Final Result Performing Organization Address [facility] Co de Phone Number [facility] [address] [place] [phone] * Ferritin (03/27/2024 10:19 AM EST) Ferritin 12 10 - 250 ng/mL [facility] 03/27/2024 10:1 9 AM EST 03/27/2024 10:19 AM EST us Generic External Data Provider LAB BLOOD ORDERAB LES Final Result [facility] [address] [place] [phone] * MR Lumbar Spine w/o Contrast (03/04/2024 7:00 PM EST) Anatomical Region Laterality Modality Spine, L-spine Magnetic Resonan ce 03/04/2024 7:00 PM EST Narrative 03/29/2024 9:08 AM EST ? [facility] ?[address] ?[place] [address] ? Magnetic Resonance Report ? Signed ? Patient: Corina Nielsen ?MR#: [id number] ?? [id number] ? : 1975 ?Acct:[id number] ? Age/Sex: 49 / F ?ADM Date: 03/04/24 ? Loc: HO.MRI ? Attending Dr: Claritza Leonard DO ? Ordering Physician: Claritza Leonard DO ?? Date of Service: 03/04/24 ?? Procedure(s): MR lumbar spine wo con ?? Accession Number(s): [id number] ? cc: [facility]; Claritza Leonard DO ? EXAMINATION: ?? [...] DD/ 1900 ? TD/TT: 03/04/24 1920 ? Marketing Operations Intern: ? Procedure Note Donotuseinterpreter, Image - 03/29/[address] [address] Magnetic Resonance Report Signed Patient: Baljit NielsenR#: [id number] : 1975Acct:[id number] Age/Sex: 49 / FADM Date: 03/04/24 Loc: HO.MRI Attending Dr: Claritza Leonard DO Ordering Physician: Claritza Leonard DO Date of Service: 03/04/24 Procedure(s): MR lumbar spine wo con Accession Number(s): [id number] cc: [facility]; Claritza Leonard DO EXAMINATION: MR LUMBAR [...] <Electronically signed by Valentino Jones MDin OV> 03/29/24 09 DD/ 99 TD/TT: 03/04/241919 Marketing Operations Intern: Claritza Leonard DO IMG MRI PROCEDURES Edited Re sult - Final * Cologuard?? colon cancer screening (02/02/2024 9:15 AM EST) Cologuard Result Negative Negative 02/08/20 2:05 AM EST [employer] ([employer] #:[id number]) Comment: NEGATIVE TEST RESULT. A negative Cologuard [...] cancer. ??Following a negative Cologuard result, the [place] [employer] and U.S. Multi-Society Task Force screening guidelines recommend a Cologuard re-screening interval of 3 years. References: [place] [employer] Guideline for Colorectal Cancer Screening: https://www.cancer.org/cancer/lolyh-wbxuxx-nplrfp/fwkwpnrft-fmodnmqmq-holsink/ac s-rec ommendations.html.; Hector DK, Julio Cesar PEÑA, Janet TroncosoK, Colorectal Cancer Screening: Recommendations for Physicians and Patients from the U.S. Multi-Society Task Force on Colorectal Cancer Screening , Am J Gastroenterology 2017; 112:1512-1260. TEST DESCRIPTION: Composite algorithmic analysis of stool [...] screened with both Cologuard and colonoscopy. (Isadora Mccord, N Engl J Med 2014;370(14):4231-5358.) Cologuard may produce a false negative or false positive result (no colorectal cancer or precancerous polyp present at colonoscopy follow up). A negative Cologuard test result does not guarantee the absence of CRC or advanced adenoma (pre-cancer). The current Cologuard screening interval is every 3 years. ([place] [employer] and U.S. Multi-Society Task Force). Cologuard performance data in a 10,000 patient pivotal study using colonoscopy as the reference method can be accessed at the following location: www.[employer].Dogster/results. Additional description of the Cologuard test process, warnings and precautions can be found at www.Arasogffk environmentrd.com. Stool specimen (specimen) Rectal contents / Unknown 02/02/2024 9:15 AM EST 02/03/2024 10:52 AM EST Marian Crook MD LAB MOLECULAR DIAGNOSTIC S ORDERABLES Final Result [employer] (CLIA #:[id number]) [place] [address], * BI Mammogram Screening Tomosynthesis Bilateral (12/05/2023 3:30 PM EDT) Anatomical Region Laterality Modality Breast Bilateral Mammography 12/05/2023 3:30 PM EDT Narrative 12/19/2023 8:58 AM EDT ? [facility] ? [address] ?[place] [address] ? Mammography Report ? Signed ? Patient: Jose Alberto James,Corina ?MR#: [id number] ?? [id number] ? : 1975 ?Acct:[id number] ? Age/Sex: 48 / F ?ADM Date: 09/13/24 ? Loc: HO.MAMMO ? Attending Dr: Marian Crook MD ? Ordering Physician: Marian Crook MD ?Results: 1Ne ?? gative ? Date of Service: 12/05/23 ?Follow Up: 1 Year From Orig ?? inal Mammogram ? Procedure(s): MM tomosynthesis screening BI ?? Accession Number(s): [id number] ? cc: Marian Crook MD ? EXAMINATION: [...] ??Mini Yap DO ??12/19/2023 08:55 AM EDT ?? RP ? Dictated By: ?Mini Yap DO ? Signed By: ?<Electronically signed by Mini Yap, DO in OV> ? 12/19/23 0855 ? DD/ 1530 ? TD/TT: 12/05/23 1540 ? Marketing Operations Intern: ? Procedure Note Donotuseinterpreter, Image - 12/19/2023 [facility] [address] [place] [address] Mammography Report Signed Patient: Yarelis Nielsen#: [id number] : 1975Acct:[id number] Age/Sex: 48 / FADM Date: 12/05/23 Loc: HO.MAMMO Attending Dr: Marian Crook MD Ordering Physician: Marian Crook MDResults: 1Ne gative Date of Service: 12/05/23Follow Up: 1 Year From Orig inal Mammogram Procedure(s): MM tomosynthesis screening BI Accession Number(s): [id number] cc: Marian Crook MD EXAMINATION: MM SCREENING [...] 12/19/23 0855 DD/ 1530 TD/TT: 12/05/23 1540 Marketing Operations Intern: us Marian Crook MD IMG BI PROCEDURES Final [...] has been evaluated with computer assisted technology. [facility] Brim Plater : SEE COMMENT [facility] Comment: ALS, CT(ASCP) CT screening location: [address] ??[address] Infection Fungal organisms morphologically consistent with Thais spp. [facility] Interpretation/R esult: Negative for intraepithelial lesion or malignancy. [facility] LMP: NONE GIVEN [facility] Prev. BX: NONE GIVEN [facility] Prev. PAP: NONE GIVEN [facility] ON [facility] SYSTEM SOURCE: None given [facility] Statement Of Adequacy: SEE COMMENT [facility] Comment: Satisfactory for evaluation. Endocervical/transformation zone component present. Age and/or menstrual status not provided 06/06/2020 2:03 PM EDT us Mattie Farr MD LAB PATHOLOGY ORDERABLES Sophie chaudhari Result [facility] [address] * HPV mRNA E6/E7 (06/06/2020 2:03 PM EDT) HPV nRNA E6/E7 Not Detected Not Detected [facility] Comment: Methodology: It Auditor-Mediated Amplification This assay detects E6/E7 viral messenger RNA (mRNA) from 14 high-risk HPV types (16,18,31,33,35,39,45,51,52,56,58,59,66,68). ? The analytical performance characteristics of this assay have been determined by [employer]. The modifications have not been cleared or approved by the FDA. This assay has been validated pursuant to the CLIA regulations and is used for clinical purposes. ?? For additional information, please refer to http://education.[employer] ([employer])/faq/YZU859r1 (This link if provided for information/ educational purposes only.) 06/06/2020 2:03 PM EDT us Mattie Farr MD LAB BLOOD ORDERABLES Final Re sult [facility] [address] from Last 3 Months or Most Recently Relevant to Health Maintenance Insurance [facility] C3 Care Teams Composition Weatherboard Installer Relationship Specialty Start Date End Date Marian Crook MD [address] [place] [phone] PCP - General Internal Medicine 09/12/23
--- OUTSIDE RECORDS SUMMARY | 2024-04-26 22:24 | XMS_ITS | Encounter Summary ---
Author Organization [employer] Address [address] [facility] 7t [place] [address] Care Team Providers Care Photographic Process Attendant Name Role Phone Marian Crook MD Primary Care Provider + Encounter Details Date Type Department Care Team (Late st Contact Info) Description 04/26/2024 Orders Only GENERIC EXTERNAL DATA [...] Description 07/02/2024 11:45 AM EDT Office Visit [facility] [address] [place], [place] [phone] Marian Crook MD [address] [place] [address] documented as of this encounter Procedures Procedure Name Priority Date/Time Associated Diagnosis Comments CBC WITH AUTO DIFFERENTIAL Routine 04/26/2024 4:47 PM EST APTT Routine 04/26/2024 4:47 PM EST PROTHROMBIN TIME-INR Routine 04/26/2024 4:47 PM EST MAGNESIUM Routine 04/26/2024 4:47 PM EST COMPREHENSIVE METABOLIC PANEL Routine 04/26/2024 4:47 PM EST documented in this encounter Results * Partial Thromboplastin Time, Activated (APTT) (04/26/2024 4:47 PM EST) Partial Thromboplastin Time 31.7 26.0 - 36.8 SEC [facility] Comment:For information rega rding the monitoring of direct thrombininhibitors, please refer to Pharmacy. 04/26/2024 4:47 PM EST 04/26/2024 4:50 PM EST us Generic External Data Provider LAB BLOOD ORDERAB LES Final Result Performing Organization Address [facility]/ZIP Co de Phone Number [facility] [address] [place] [phone] * Prothrombin Time-INR (04/26/2024 4:47 PM EST) Prothrombin Time 12.0 10.9 - 12.4 SEC [facility] INTERNATIONAL NORM RATIO 1.0 0.9 - 1.1 [facility] Comment:INTERNATIONAL NORMAL IZED RATIO (INR) REFERENCE [...] ORDERAB LES Final Result Performing Organization Address [facility] Co de Phone Number [facility] [address] [place] [phone] * Magnesium (04/26/2024 4:47 PM EST) Magnesium 1.9 1.6 - 2.6 mg/dL [facility] 04/26/2024 4:47 PM EST 04/26/2024 4:50 PM EST us Generic External Data Provider LAB BLOOD ORDERAB LES Final Result Performing Organization Address City/[facility] Co de Phone Number [facility] [address] [place] [address] [phone] * (ABNORMAL) Comprehensive Metabolic Panel (04/26/2024 4:47 PM EST) Sodium 140 135 - 145 mmol/L [facility] Potassium 4.1 3.3 - 5.1 mmol/L [facility] Chloride 108 96 - 108 mmol/L [facility] Carbon Dioxide 28 22 - 29 mmol/L [facility] Anion Gap 8(L) 12 - 20 [facility] Urea Nitrogen (BUN) 17(H) 9 - 16 mg/dL [facility] Creatinine, Serum 0.78 0.5 - 1.4 mg/dL [facility] Creatinine Clr Calc Pharmacy 84.2 [facility] Comment:Provided height and weight: 157.48 cm,77.8 kg.eGFR (calculated from the MDRD study equation) and eCrCl(calculated from the Cockcroft-Gault equation) are based ondifferent parameters and may not yield comparable results.If eCrCl result is absurd, please check patient'sheight/weight. Estimated Glomerular Filt Rate >60 [facility] Comment:Chronic Kidney Disea se: Estimated GFR < 60 mL/min/1.19f3Feovmj Kidney Disease: Estimated GFR < 15 mL/min/1.73m2 Glucose 80 60 - 115 mg/dL [facility] Calcium 9.0 8.4 - 10.2 mg/dL [facility] Bilirubin, Total 0.3 0.0 - 1.0 mg/dL [facility] Aspartate Amino Transferase 21 5 - 31 U/L [facility] Alanine Aminotransferase 14 0 - 31 U/L [facility] Total Protein 7.6 6.5 - 8.0 g/dL [facility] Albumin Level 4.1 3.5 - 5.0 g/dL [facility] Alkaline Phosphatase 72 39 - 117 U/L [facility] 04/26/2024 4:47 PM EST 04/26/2024 4:50 PM EST us Generic External Data Provider LAB BLOOD ORDERAB LES Final Result [facility] [address] [place], [place] [phone] * (ABNORMAL) CBC auto differential (04/26/2024 4:47 PM EST) White Blood Count 6.0 4.8 - 10.8 X10*3/uL [facility] Red Blood Count 4.05(L) 4.20 - 5.50 X10*6/uL [facility] Hemoglobin 12.4 12.0 - 16.0 g/dl [facility] Hematocrit 37.7 37.0 - 47.0 % [facility] Mean Corpuscular Volume 93.1 80.0 - 98.0 fL [facility] Mean Corpuscular Hemoglobin 30.6 27.0 - 33.0 pg [facility] Mean Corpuscular HGB Conc 32.9 31.0 - 35.0 g/dl [facility] Red Cell Distribution Width 12.3 11.0 - 16.0 % [facility] Platelet Count 269 160 - 400 X10*3/uL [facility] Mean Platelet Volume 10.9 9.4 - 12.3 fL [facility] Neutrophils Percent Auto 55.1 45 - 73 % [facility] Imm Gran Pct Auto 0.0 0.0 - 0.4 % [facility] Lymphocytes Percent Auto 29.4 20 - 40 % [facility] Monocytes Percent Auto 10.6 2 - 11 % [facility] Eosinophils Percent Auto 3.9 0 - 4 % [facility] Basophils Percent Auto 1.0 0 - 2 % [facility] NRBC Pct Auto 0.0 0.0 - 0.2 /100WBC [facility] Neutrophils Absolute Auto 3.3 2.0 - 8.3 x10*3/uL [facility] Imm Gran Abs Auto 0.00 0.00 - 0.03 X10*3/uL [facility] Lymphocytes Absolute Auto 1.8 1.2 - 4.9 X10*3/uL [facility] Monocytes Absolute Auto 0.6 0.1 - 1.2 X10*3/uL [facility] Eosinophils Absolute Auto 0.2 0.0 - 0.4 X10*3/uL [facility] Basophils Absolute Auto 0.1 0.0 - 0.2 X10*3/uL [facility] NRBC Abs Auto 0.000 0.0 - 0.012 X10*3/uL [facility] 04/26/2024 4:47 PM EST 04/26/2024 4:50 PM EST us Generic External Data Provider LAB BLOOD ORDERAB LES Final Result Performing Organization Address City/State/[facility] Co de Phone Number [facility] [address] [place] [phone] documented in this encounter Visit Diagnoses Not on filedocumented in this encounter Additional Health Concerns Assessment Noted Time PHQ-9 Depression Total Score: 22 024 2:02 PM EDT documented as of this encounter Care Teams Photographic Process Attendant Relationship Specialty Start Date End Date Marian Crook MD [address] [place] [address] PCP - General Internal Medicine 09/12/23 documented as of this encounter
--- OUTSIDE RECORDS SUMMARY | 2024-04-26 22:24 | XMS_ITS | Encounter Summary ---
Author Organization [employer] Address [address] [facility] 7t [place] [address] Care Team Providers Care Pearl Diver Name Role Phone Marian Crook MD Primary Care Provider + Reason for Visit * Reason Onset Date Comments Stable Imaging Letter 03/30/2024 Encounter Details Date Type Department Care Team ([facility] st Contact Info) Description 03/30/2024 Telephone [facility] [address] [place] [address] Marian Crook MD [address] [place] [address] Stable Imaging Letter Social History Tobacco Use [...] the past 12 months, has t he [employer], gas, oil or water [employer] threatened to shut off services in your [...] Description 07/02/2024 11:45 AM EDT Office Visit [facility] [address] [place] [address] Marian Crook MD [address] [place] [address] documented as of this encounter Visit Diagnoses Not on filedocumented in this encounter Additional Health Concerns Assessment Noted Time PHQ-9 Depression Total Score: 22 024 2:02 PM EDT documented as of this encounter Care Teams Pearl Diver Relationship Specialty Start Date End Date Marian Crook MD [address] [place] [address] PCP - General Internal Medicine 09/12/23 documented as of this encounter
--- OUTSIDE RECORDS SUMMARY | 2024-04-26 22:24 | XMS_ITS | Encounter Summary ---
Author Organization [employer] Address [address] [facility] 7t [place] [address] Care Team Providers Care Glove Wrapper Name Role Phone Marian Crook MD Primary [...] Upcoming Encounters Date Type Department Care Team ([facility] st Contact Info) Description 07/02/2024 11:45 AM EDT Office Visit [facility] [address] [place] [address] Marian Crook MD [address] [place] [address] documented as of this encounter Procedures Procedure Name Priority Date/Time Associated Diagnosis Comments TISSUE TRANSGLUTAMINASE AB, IGA Routine 03/27/2024 10:19 AM EST documented in this encounter Results * Tissue Transglutaminase Antibody, IgA (03/27/2024 10:19 AM EST) Transglutaminase IgA <1.0 U/mL [facility] Comment:Value Interpretation ----- <15.0 Antibody not detected> or = 15.0 Antibody detectedTHIS TEST WAS PERFORMED AT:[facility] [place] [phone] OLIVAS MD 03/27/2024 10:1 9 AM EST 03/27/2024 10:19 AM EST us Generic External Data Provider LAB BLOOD ORDERAB LES Final Result [facility] [address] [place] [address] [phone] documented in this encounter Visit Diagnoses Not on filedocumented in this encounter Additional Health Concerns Assessment Noted Time PHQ-9 Depression Total Score: 22 024 2:02 PM EDT documented as of this encounter Care Teams Glove Wrapper Relationship Specialty Start Date End Date Marian Crook MD [address] [place] [phone] PCP - General Internal Medicine 09/12/23 documented as of this encounter
--- OUTSIDE RECORDS SUMMARY | 2024-04-26 22:24 | XMS_ITS | Encounter Summary ---
Author Organization [employer] Address [address] [facility] 7t [place] [address] Care Team Providers Care Software Engineer Web Applications Name Role Phone Marian Crook MD Primary Care Provider + Reason for Visit * Reason Onset Date Comments Results 03/30/2024 Encounter Details Date Type Department Care Team ([facility] st Contact Info) Description 03/30/2024 Telephone [facility] [address] [place], [place] [phone] Marian Crook MD [address] [place], [place] [phone] Results Social History Tobacco Use Types Packs/Day [...] 2:01 PM EST TC placed to patient [phone] to inform ordering provider has placed US [...] 4:34 PM EST TC placed to patient [phone] in regards to below message. Patient advised [...] reviewed chart and patient was seen by [facility] on 03/27/24 and they are recommending injections. RN advised patient to continue with PM plan of receiving injections. Patient advised we will call her once we receive the US results and they are reviewed by the provider. Patient reports [facility] called her regarding her BW results [...] Labs 03/27/2024 Date when done: 02/26/2024 Facility: [facility] documented in this encounter Plan of Treatment Upcoming Encounters Date Type Department Care Team (Late st Contact Info) Description 07/02/2024 11:45 AM EDT Office Visit [facility] [address] [place] [phone] Marian Crook MD [address] [place] [address] documented as of this encounter Visit Diagnoses Not on filedocumented in this encounter Additional Health Concerns Assessment Noted Time PHQ-9 Depression Total Score: 22 024 2:02 PM EDT documented as of this encounter Care Teams Software Engineer Web Applications Relationship Specialty Start Date End Date Marian Crook MD [address] [place] [phone] PCP - General Internal Medicine 09/12/23 documented as of this encounter
--- OUTSIDE RECORDS SUMMARY | 2024-04-26 22:24 | XMS_ITS | Encounter Summary ---
Author Organization [employer] Address [address] [place] [address] 7t [place] [address] Care Team Providers Care Dust Control Engineer Name Role Phone Marian Crook MD Primary Care Provider + Reason for Referral * Imaging (Routine) - Closed Specialty Diagnoses / Procedures Referred By Contac t Referred To Contact Radiology Diagnoses Abnormal MRI, lumbar spine Procedures US Pelvis Transvaginal Claritza Leonard DO [address] [place] [address] Phone: tel: fax: [address] Phone: tel: fax: Referral ID Status Reason Start Date Expiration Date Visits Re quested Visits Authorized [id number] Closed 04/09/2024 04/09/2025 1 1 * Imaging (Routine) - Closed Specialty Diagnoses / Procedures Referred By Contac t Referred To Contact Radiology Diagnoses Abnormal MRI, lumbar spine Procedures Us Pelvis complete Claritza Leonard DO [address] [place] [address] Phone: tel: fax: [address] Phone: tel: fax: Referral ID Status Reason Start Date Expiration Date Visits Re quested Visits Authorized [id number] Closed 04/09/2024 04/09/2025 1 1 * Imaging (Routine) - Closed Specialty Diagnoses / Procedures Referred By Lien barragan Referred To Contact Radiology Diagnoses Abnormal MRI, lumbar spine Procedures US RENAL BI Claritza Leonard DO [address] [place] [address] Phone: tel: fax: [address] Phone: tel: fax: Referral ID Status Reason Start Date Expiration Date Visits Re quested Visits Authorized [id number] Closed 04/09/2024 04/09/2025 1 1 Encounter Details Date Type Department Care Team (Late st Contact Info) Description 04/09/2024 Orders Only [facility] [address] [place] [address] Claritza Leonard DO [address] [place] [address] Abnormal MRI, lumbar spine (Primary Dx) Social [...] Description 07/02/2024 11:45 AM EDT Office Visit [facility] [address] [place] [address] Marian Crook MD [address] [place] [address] Scheduled Orders Name Type Priority Associated Diagnoses [...] EST Narrative 04/21/2024 12:05 PM EST ? [facility] ?[address] ?[place] [address] ? Ultrasound Report ? Signed ? Patient: Nika Nielsena ?MR#: [id number] ?? [id number] ? : 1975 ?Acct:[id number] ? Age/Sex: 49 / F ?ADM Date: 04/20/24 ? Loc: HO.US ? Attending Dr: Claritza Leonard DO ? Ordering Physician: Claritza Leonard DO ?? Date of Service: 04/20/24 ?? Procedure(s): US renal BI ?? Accession Number(s): [id number] ? cc: Claritza Leonard DO ? CLINICAL [...] DD/ 1204 ? TD/TT: 04/21/24 1204 ? Excellence Coach: ? Procedure Note Donotuseinterpreter, Image - 04/21/[address] [address] Ultrasound Report Signed Patient: Yarelis Nielsen#: [id number] : 1975Acct:[id number] Age/Sex: 49 / FADM Date: 04/20/24 Loc: HO.US Attending Dr: Claritza Leonard DO Ordering Physician: Claritza Leonard DO Date of Service: 04/20/24 Procedure(s): US renal BI Accession Number(s): [id number] cc: Claritza Leonard DO CLINICAL HISTORY: probable [...] 04/21/24 1204 DD/ 1204 TD/TT: 04/21/24 1204 Excellence Coach: us Claritza Leonard DO IMG US PROCEDURES Edited Res ult - Final * US Pelvis Transvaginal (04/20/2024 3:25 PM EST) Anatomical Region Laterality Modality Pelvis Ultrasound 04/20/2024 3:25 PM EST Narrative 04/21/2024 9:28 AM EST ? [place] [facility] ?[address] ?[place] [address] ? Ultrasound Report ? Signed ? Patient: Abrams James,Corina ?MR#: [id number] ?? [id number] ? : 1975 ?Acct:[id number] ? Age/Sex: 49 / F ?ADM Date: 04/20/24 ? Loc: HO.US ? Attending Dr: Claritza Leonard DO ? Ordering Physician: Claritza Leonard DO ?? Date of Service: 04/20/24 ?? Procedure(s): US pelvic and transvaginal ?? Accession Number(s): [id number] ? cc: Claritza Leonard DO ? EXAMINATION: [...] by Valentino Jones MD in OV> ? 04/21/[address] ? DD/ 1525 ? TD/TT: 04/20/24 1555 ? Excellence Coach: ? Procedure Note Donotuseinterpreter, Image - 04/21/2024 [place] [address] Ultrasound Report Signed Patient: Baljit NielsenR#: [id number] : 1975Acct:[id number] Age/Sex: 49 / FADM Date: 04/20/24 Loc: HO.US Attending Dr: Claritza Leonard DO Ordering Physician: Claritza Leonard DO Date of Service: 04/20/24 Procedure(s): US pelvic and transvaginal Accession Number(s): [id number] cc: Claritza Leonard DO EXAMINATION: US PELVIS [...] 04/21/24 0926 DD/ 1525 TD/TT: 04/20/24 1555 Excellence Coach: us Claritza Leonard DO IMG US PROCEDURES Edited Res ult - Final documented in this encounter Visit Diagnoses Diagnosis Abnormal MRI, lumbar spine- Primary documented in this encounter Additional Health Concerns Assessment Noted Time PHQ-9 Depression Total Score: 22 024 2:02 PM EDT documented as of this encounter Care Teams Dust Control Engineer Relationship Specialty Start Date End Date Marian Crook MD [address] [place] [phone] PCP - General Internal Medicine 09/12/23 documented as of this encounter
--- OUTSIDE RECORDS SUMMARY | 2024-04-26 22:24 | XMS_ITS | Encounter Summary ---
Author Organization [employer] Address [address] [facility] 7t [place] [address] Care Team Providers Care Rn Trauma Name Role Phone Marian Crook MD Primary Care Provider + Reason for Visit * Reason Comments Med Refill Encounter Details Date Type Department Care Team ([facility] st Contact Info) Description 04/13/2024 Refill [facility] [address] [place], [place] [phone] Marian Crook MD [address] [place], [place] [phone] Social History Tobacco Use Types Packs/Day Years [...] Description 07/02/2024 11:45 AM EDT Office Visit [facility] [address] [place] [address] Marian Crook MD [address] [place] [address] documented as of this encounter Visit Diagnoses Not on filedocumented in this encounter Additional Health Concerns Assessment Noted Time PHQ-9 Depression Total Score: 22 024 2:02 PM EDT documented as of this encounter Care Teams Rn Trauma Relationship Specialty Start Date End Date Marian Crook MD [address] [place] [phone] PCP - General Internal Medicine 09/12/23 documented as of this encounter
--- OUTSIDE RECORDS SUMMARY | 2024-04-26 22:24 | XMS_ITS | Encounter Summary ---
Author Organization [employer] Address [address] [facility] 7t [place] [address] Care Team Providers Care Manager Of Training Name Role Phone Marian Crook MD Primary Care Provider + Reason for Visit * Reason Onset Date Comments June04/23/2024 Encounter Details Date Type Department Care Team ([facility] st Contact Info) Description 04/23/2024 Telephone [facility] [address] [place], [place] [phone] Marian Crook MD [address] [place], [place] [phone] June Social History Tobacco Use Types Packs/Day Years [...] encounter Miscellaneous Notes * Telephone Encounter - Juliet Michel MA - 04/23/2024 10:45 AM EST Tc to pt to schedule fu anemia/asthma recall appt. Appt has been scheduled for 07/02/24 at 11:45 am.Pt also requested kidneys US and Pelvic US results. Forwarded message to nurses. documented in this encounter Plan of Treatment Upcoming Encounters Date Type Department Care Team (Late st Contact Info) Description 07/02/2024 11:45 AM EDT Office Visit [facility] [address] [place] [address] Marian Crook MD [address] [place] [address] documented as of this encounter Visit Diagnoses Not on filedocumented in this encounter Additional Health Concerns Assessment Noted Time PHQ-9 Depression Total Score: 22 024 2:02 PM EDT documented as of this encounter Care Teams Manager Of Training Relationship Specialty Start Date End Date Marian Crook MD [address] [place] [address] PCP - General Internal Medicine 09/12/23 documented as of this encounter
--- OUTSIDE RECORDS SUMMARY | 2024-04-26 22:24 | XMS_ITS | Encounter Summary ---
Author Organization [employer] Address [address] [facility] [address] [place] [address] Care Team Providers Care Launchman Name Role Phone Marian Crook MD Primary Care Provider + Reason for Visit * Reason Onset Date Comments Call Back Requested 03/30/2024 Encounter Details Date Type Department Care Team ([facility] st Contact Info) Description 03/30/2024 Telephone [facility] [address] [place] [address] Marian Crook MD [address] [place] [address] Call Back Requested Social History Tobacco Use [...] 8:39 AM EST TC placed to patient [phone] in regards to below message. Patient did not answer, RN left requesting CB to red team nurses. If patient returns call, please advise patient blood work was ordered by Dr. [facility] and she should call [phone] for her results * Telephone Encounter - Ale Lopes - 03/30/2024 8:12 AM EST Tc from pt requesting call back in regard lab results. [phone] documented in this encounter Plan of Treatment Upcoming Encounters Date Type Department Care Team (Late st Contact Info) Description 07/02/2024 11:45 AM EDT Office Visit [facility] [address] [place] [address] Marian Crook MD [address] [place] [address] documented as of this encounter Visit Diagnoses Not on filedocumented in this encounter Additional Health Concerns Assessment Noted Time PHQ-9 Depression Total Score: 22 024 2:02 PM EDT documented as of this encounter Care Teams Launchman Relationship Specialty Start Date End Date Marian Crook MD [address] [place] [id number] PCP - General Internal Medicine 09/12/23 documented as of this encounter
--- OUTSIDE RECORDS SUMMARY | 2024-04-26 22:24 | XMS_ITS | Encounter Summary ---
Author Organization [employer] [facility] Address [address] [place] [address] [address] [place] [address] Care Team Providers Care Shingles Roofer Helper Name Role Phone Marian Crook MD Primary Care Provider + Reason for Visit * Reason Comments Med Refill Encounter Details Date Type Department Care Team (Late Contact Info) Description 11/27/2023 Refill [facility] [address] [place] [address] [phone] Marian Crook MD [address] [place], [place] [phone] Social History Tobacco Use Types Packs/Day Years [...] Encounters Date Type Department Care Team (Late Contact Info) Description 07/02/2024 11:45 AM EDT Office Visit [facility] [address] [place] [phone] Marian Crook MD [address] [place], [place] [phone] documented as of this encounter Visit Diagnoses Not on filedocumented in this encounter Additional Health Concerns Assessment Noted Time PHQ-9 Depression Total Score: 16 023 3:25 PM EDT documented as of this encounter Care Teams Shingles Roofer Helper Relationship Specialty Start Date End Date Marian Crook MD [address] [place] [address] PCP - General Internal Medicine 09/12/23 documented as of this encounter
--- OUTSIDE RECORDS SUMMARY | 2024-04-26 22:24 | XMS_ITS | Encounter Summary ---
Author Organization [employer] Address [address] [place] [address] 7[address] [place] [address] Care Team Providers Care Computer Networking Instructor Name Role Phone [facility] Primary Care Provider Marian Crook MD Primary Care Provider + Reason for Visit * Reason Onset Date Comments Nurse Triage 11/18/2022 Encounter Details Date Type Department Care Team (Late st Contact Info) Description 11/18/2022 Telephone [facility] [address] [place] [address] [facility] [address] [place] [address] Nurse Triage Social History Tobacco Use Types [...] Description 07/02/2024 11:45 AM EDT Office Visit [facility] [address] [place] [address] Marian Crook MD [address] [place] [address] documented as of this encounter Visit Diagnoses Not on filedocumented in this encounter Additional Health Concerns Assessment Noted Time PHQ-9 Depression Total Score: 16 06/18/ 023 3:25 PM EDT documented as of this encounter Care Teams Computer Networking Instructor Relationship Specialty Start Date End Date Alisha Hook FNP [address] [place] [address] PCP - General Family Medicine 11/14/21 09/11/23 Marian Crook MD [address] [place] [address] PCP - General Internal Medicine 09/12/23 documented as of this encounter
--- OUTSIDE RECORDS SUMMARY | 2024-04-26 22:24 | XMS_ITS | Encounter Summary ---
Author Organization [employer] [facility] Address [address] [place] [address] 7 [place] [address] Care Team Providers Care Duck Bill Operator Name Role Phone [facility] Primary Care Provider [phone] Marian Crook MD Primary Care Provider + Encounter Details Date Type Department Care Team (Late st Contact Info) Description 04/03/2023 Abstract [facility] [address] [place] [phone] [facility] [address] [place] [address] Social History Tobacco Use Types Packs/Day Years [...] 07/02/2024 11:45 AM EDT Office Visit [facility] [address] [place] [address] [phone] Marian Crook MD [address] [place], [place] [phone] documented as of this encounter Visit Diagnoses Not on filedocumented in this encounter Additional Health Concerns Assessment Noted Time PHQ-9 Depression Total Score: 16 023 3:25 PM EDT documented as of this encounter Care Teams Duck Bill Operator Relationship Specialty Start Date End Date Miladys RACQUEL Brito [address] [place] [address] PCP - General Family Medicine 11/14/21 09/11/23 Marian Crook MD [address] [place] [address] PCP - General Internal Medicine 09/12/23 documented as of this encounter
[2024-04-26 23:15] VITALS: BP 106/60; PULSE 88; RESP 18; TEMP 36.5; O2SAT 98
[2024-04-27 00:38] LABS: Appearance Urine Clear; Color Urine Yellow; Glucose Urine UA Negative (Negative); Leukocyte Esterase Urine Negative (Negative); Nitrite Urine Negative (Negative); PH 5.5 (5.0-9.0); UMIC TRIGGER UACC YES; Urine Blood Moderate (2+) (Negative); Urine Ketones Negative (Negative); Urine Protein Negative (Neg-Trace)
[2024-04-27 00:41] LABS: Bacteria Urine None Seen (None Seen); Hyaline Casts Urine 0-2 /LPF (0-2); RBC Urine >20 /HPF (0-2); Squamous Epithelial Cell Urine 0-2 /HPF (0-2); WBC Urine 0-5 /HPF (0-5)
[2024-04-27 01:28] VITALS: BP 110/52; PULSE 72; RESP 18; TEMP 36.8; O2SAT 98
== END 2024-04-27 01:28 | disposition home or self-care (01) ==
PROVIDERS: Nurse Practitioner Family; Physician Assistant Medical; Emergency Provider Emergency Medicine Emergency Medical Services; PCP Internal Medicine
DX: N93.8 Other specified abnormal uterine and vaginal bleeding (principal); M54.50 Low back pain, unspecified; R35.0 Frequency of micturition; R11.0 Nausea; Z79.899 Other long term (current) drug therapy
CPT/HCPCS: 36415; 80053; 81001; 83735; 85025; 85610; 85730; 99283; 99284

== ENCOUNTER 2024-05-05 10:22 | Outpatient (REF) | payer MEDICAID, SELFPAY ==
[2024-05-05 12:09] LABS: Hematocrit 36.3 % (37.0-47.0); Mean Corpuscular HGB Conc 33.1 g/dl (31.0-35.0); Mean Corpuscular Hemoglobin 30.6 pg (27.0-33.0); Mean Corpuscular Volume 92.6 fL (80.0-98.0); Mean Platelet Volume 11.1 fL (9.4-12.3); Platelet Count 264 X10*3/uL (160-400); Red Blood Count 3.92 X10*6/uL (4.20-5.50); Red Cell Distribution Width 12.3 % (11.0-16.0); White Blood Count 5.5 X10*3/uL (4.8-10.8)
--- OUTSIDE RECORDS SUMMARY | 2024-05-05 12:36 | XMS_ITS | Clinical Summary ---
Author Organization [employer] Address [address] [place] [address] [address] [place] [address] Care Team Providers Care Client Technical Specialist Name Role Phone Marian Crook MD [...] for this letter, she has appt with [facility] next week. I told her to reach out to legal support analyst to help her write a letter so that housing give her some more time to get the letter from MH provider. She will res tart Effexor for anxiety and fu with me in 6m Encounters Date Type Department Care Team Description 05/05/2024 Orders Only GENERIC EXTERNAL DATA DEPARTMENT Provider, Generic External Data 04/29/2024 Orders Only [facility] [address] [place] [phone] Claritza Leonard DO Bilateral renal cysts (Primary Dx); Uterine leiomyoma, unspecified location; Excessive bleeding in premenopausal period 04/29/2024 Telephone [facility] MEDICINE [address] [place] [address] Marian Crook MD Nurse Triage 04/27/2024 Orders Only GENERIC EXTERNAL DATA DEPARTMENT Provider, Generic External Data 04/26/2024 Orders Only GENERIC EXTERNAL DATA DEPARTMENT Provider, Generic External Data 04/26/2024 Telephone [facility] [address] [place] [address] Lina Yarbrough, MOIRA Results 04/23/2024 Telephone [facility] [address] [facility] [place] [address] Marian Crook MD Tianna recall 04/13/2024 Refill [facility] [address] [facility] [address] [place], [place] [address] Marian Crook MD 04/09/2024 Orders Only [facility] MEDICINE [address] [facility] [place] [address] Claritza Leonard DO Abnormal MRI, lumbar spine (Primary Dx) 03/30/2024 Telephone [facility] MEDICINE [address] [facility] [place] [address] Marian Crook MD Results 03/30/2024 Telephone [facility] MEDICINE [address] [place] [place] [address] Marian Crook MD Stable Imaging Letter 03/30/2024 Telephone [facility] MEDICINE [address] [place] [place] [address] Marian Crook MD Call Back Requested 03/27/2024 Orders Only GENERIC EXTERNAL DATA DEPARTMENT Provider, Generic External Data 03/26/2024 Orders Only [facility] External Provider, [facility] 03/25/2024 Refill [facility] MED[facility]INE [address] [facility] [place] [address] Marian Crook MD Moderate persistent asthma without complication 03/25/2024 Refill [facility] [address] [facility] [place] [address] Marian Crook MD 03/25/2024 Refill [facility] MEDICINE [address] [place] [place] [address] Claritza Leonard, DO 03/25/2024 Refill C MEDICINE [address] [facility] [place] [address] Claritza Leonard, DO 03/22/2024 Telephone [facility] MEDICINE [address] [place] [place] [address] Claritza Leonard, DO 03/19/2024 Telephone [facility] MEDICINE [address] [facility] [place] [address] Marian Crook MD Results 03/05/2024 Refill [facility] MEDICINE [address] [place] [address] Claritza Leonard DO 03/01/2024 Telephone [facility] MEDICINE [address] [place] [address] Marian Crook MD Nurse Triage 02/26/2024 12:00 PM EST Office Visit [facility] MEDICINE [address] [place] [address] Claritza Leonard DO Folliculitis (Primary Dx); Chronic bilateral low back pain with left-sided sciatica 02/26/2024 Travel 02/26/2024 Telephone [facility] MEDICINE [address] [place] [address] Marian Crook MD Nurse Triage 02/24/2024 Refill [facility] MEDICINE [address] [place] [address] Marian Crook MD from Last 3 Months [...] 11:45 AM EDT Office Visit [facility] MEDICINE [address] [place] [address] Marian Crook MD [address] [place], [place] [phone] Health Maintenance Due Date Last Done Comments [...] Name Priority Date/Time Associated Diagnosis Comments CBC Routine 05/05/2024 11:23 AM EST URINALYSIS, COMPLETE, WITH REFLEX TO CULTURE Routine 04/27/2024 12:31 AM EST APTT Routine 04/26/2024 4:47 PM EST [...] to Health Maintenance Results * (ABNORMAL) CBC (05/05/2024 11:23 AM EST) White Blood Count 5.5 4.8 - 10.8 X10*3/uL [facility] Red Blood Count 3.92(L) 4.20 - 5.50 X10*6/uL [facility] Hemoglobin 12.0 12.0 - 16.0 g/dl [facility] Hematocrit 36.3(L) 37.0 - 47.0 % [facility] Mean Corpuscular Volume 92.6 80.0 - 98.0 fL [facility] Mean Corpuscular Hemoglobin 30.6 27.0 - 33.0 pg [facility] Mean Corpuscular HGB Conc 33.1 31.0 - 35.0 g/dl [facility] Red Cell Distribution Width 12.3 11.0 - 16.0 % [facility] Platelet Count 264 160 - 400 X10*3/uL [facility] Mean Platelet Volume 11.1 9.4 - 12.3 fL [facility] NRBC Pct Auto 0.0 0.0 - 0.2 /100WBC [facility] NRBC Abs Auto 0.000 0.0 - 0.012 X10*3/uL [facility] 05/05/2024 11:2 3 AM EST 05/05/2024 11:23 AM EST us Generic External Data Provider LAB BLOOD ORDERAB LES Final Result [facility] [address] [place] [address] [phone] * (ABNORMAL) Urinalysis, Complete, with Reflex to Culture (04/27/2024 12:31 AM EST) Color Urine Yellow [facility] Appearance Urine Clear [facility] PH 5.5 5.0 - 9.0 [facility] Glucose Urine UA Negative Negative mg/dL [facility] Urine Blood Moderate (2+)(A) Negative [facility] Specific Bulan - Urine 1.020 1.005 - 1.025 [facility] Urine Protein Negative Neg-Trace mg/dL [facility] Urine Ketones Negative Negative mg/dL [facility] Nitrite Urine Negative Negative [facility] Leukocyte Esterase Urine Negative Negative [facility] RBC Urine >20(A) 0 - 2 /HPF [facility] Urine WBC 0-5 0 - 5 /HPF [facility] Urine Squamous Epithelial Cell 0-2 0 - 2 /HPF [facility] Urine Bacteria None Seen None Seen [facility] Hyaline Casts, Urine 0-2 0 - 2 /LPF [facility] 04/27/2024 12:3 1 AM EST 04/27/2024 12:34 AM EST Narrative [facility] - 04/27/2024 12:42 AM EST Urine, Clean Catch us Generic External Data Provider LAB URINE ORDERAB LES Final Result [facility] [address] [place] [address] [phone] * (ABNORMAL) CBC auto differential (04/26/2024 4:47 PM EST) White Blood Count 6.0 4.8 - 10.8 X10*3/uL [facility] Red Blood Count 4.05(L) 4.20 - 5.50 X10*6/uL [facility] Hemoglobin 12.4 12.0 - 16.0 g/dl [facility] Hematocrit 37.7 37.0 - 47.0 % [facility] Mean Corpuscular Volume 93.1 80.0 - 98.0 fL [facility] Mean Corpuscular Hemoglobin 30.6 27.0 - 33.0 pg [facility] Mean Corpuscular HGB Conc 32.9 31.0 - 35.0 g/dl [facility] Red Cell Distribution Width 12.3 11.0 - 16.0 % [facility] Platelet Count 269 160 - 400 X10*3/uL [facility] Mean Platelet Volume 10.9 9.4 - 12.3 fL [facility] Neutrophils Percent Auto 55.1 45 - 73 % [facility] Imm Gran Pct Auto 0.0 0.0 - 0.4 % [facility] Lymphocytes Percent Auto 29.4 20 - 40 % [facility] Monocytes Percent Auto 10.6 2 - 11 % [facility] Eosinophils Percent Auto 3.9 0 - 4 % [facility] Basophils Percent Auto 1.0 0 - 2 % [facility] NRBC Pct Auto 0.0 0.0 - 0.2 /100WBC [facility] Neutrophils Absolute Auto 3.3 2.0 - 8.3 x10*3/uL [facility] Imm Gran Abs Auto 0.00 0.00 - 0.03 X10*3/uL [facility] Lymphocytes Absolute Auto 1.8 1.2 - 4.9 X10*3/uL [facility] Monocytes Absolute Auto 0.6 0.1 - 1.2 X10*3/uL [facility] Eosinophils Absolute Auto 0.2 0.0 - 0.4 X10*3/uL [facility] Basophils Absolute Auto 0.1 0.0 - 0.2 X10*3/uL [facility] NRBC Abs Auto 0.000 0.0 - 0.012 X10*3/uL [facility] 04/26/2024 4:47 PM EST 04/26/2024 4:50 PM EST us Generic External Data Provider LAB BLOOD ORDERAB LES Final Result Performing Organization Address [facility] Co de Phone Number [facility] [address] [place] [phone] * Partial Thromboplastin Time, Activated (APTT) (04/26/2024 4:47 PM EST) Partial Thromboplastin Time 31.7 26.0 - 36.8 SEC [facility] Comment:For information rega rding the monitoring of direct thrombininhibitors, please refer to Pharmacy. 04/26/2024 4:47 PM EST 04/26/2024 4:50 PM EST Generic External Data Provider LAB BLOOD ORDERAB LES Final Result Performing Organization Address [facility] Co de Phone Number [facility] [address] [place] [phone] * Prothrombin Time-INR (04/26/2024 4:47 PM EST) Prothrombin Time 12.0 10.9 - 12.4 SEC [facility] INTERNATIONAL NORM RATIO 1.0 0.9 - 1.1 [facility] Comment:INTERNATIONAL NORMAL IZED RATIO (INR) [...] ORDERAB LES Final Result Performing Organization Address [facility]/ZIP Co de Phone Number [facility] [address] [place] [address] [phone] * Magnesium (04/26/2024 4:47 PM EST) Magnesium 1.9 1.6 - 2.6 mg/dL [facility] 04/26/2024 4:47 PM EST 04/26/2024 4:50 PM EST us Generic External Data Provider LAB BLOOD ORDERAB LES Final Result Performing Organization Address [facility] Co de Phone Number [facility] [address] [place] [address] [phone] * (ABNORMAL) Comprehensive Metabolic Panel (04/26/2024 4:47 PM EST) Sodium 140 135 - 145 mmol/L [facility] Potassium 4.1 3.3 - 5.1 mmol/L [facility] Chloride 108 96 - 108 mmol/L [facility] Carbon Dioxide 28 22 - 29 mmol/L [facility] Anion Gap 8(L) 12 - 20 [facility] Urea Nitrogen (BUN) 17(H) 9 - 16 mg/dL [facility] Creatinine, Serum 0.78 0.5 - 1.4 mg/dL [facility] Creatinine Clr Calc Pharmacy 84.2 [facility] Comment:Provided height and weight: 157.48 cm,77.8 kg.eGFR (calculated from the MDRD study equation) and eCrCl(calculated from the Cockcroft-Gault equation) are based ondifferent parameters and may not yield comparable results.If eCrCl result is absurd, please check patient'sheight/weight. Estimated Glomerular Filt Rate >60 [facility] Comment:Chronic Kidney Disea se: Estimated GFR < 60 mL/min/1.90p8Xmxwsp Kidney Disease: Estimated GFR < 15 mL/min/1.73m2 Glucose 80 60 - 115 mg/dL [facility] Calcium 9.0 8.4 - 10.2 mg/dL [facility] Bilirubin, Total 0.3 0.0 - 1.0 mg/dL [facility] Aspartate Amino Transferase 21 5 - 31 U/L [facility] Alanine Aminotransferase 14 0 - 31 U/L [facility] Total Protein 7.6 6.5 - 8.0 g/dL [facility] Albumin Level 4.1 3.5 - 5.0 g/dL [facility] Alkaline Phosphatase 72 39 - 117 U/L [facility] 04/26/2024 4:47 PM EST 04/26/2024 4:50 PM EST us Generic External Data Provider LAB BLOOD ORDERAB LES Final Result Performing Organization Address [facility]/State/[facility] Co de Phone Number [facility] [address] [place] [phone] [phone] * US RENAL BI (04/21/2024 12:04 PM EST) Anatomical Region Laterality Modality Abdomen Ultrasound 04/21/2024 12:0 4 PM EST Narrative 04/21/2024 12:05 PM EST ? [facility] ?[address] ?[place] [address] ? Ultrasound Report ? Signed ? Patient: Jose Alberto James,Corina ?MR#: [id number] ?? [id number] ? : 1975 ?Acct:[id number] ? Age/Sex: 49 / F ?ADM Date: 04/20/24 ? Loc: HO.US ? Attending Dr: Claritza Leonard DO ? Ordering Physician: Claritza Leonard DO ?? Date of Service: 04/20/24 ?? Procedure(s): US renal BI ?? Accession Number(s): [id number] ? cc: Claritza Leonard DO ? CLINICAL [...] DD/ 1204 ? TD/TT: 04/21/24 1204 ? Machine Tool Operator: ? Procedure Note Donsundeepter, Image - 04/21/2024 [place] [address] Ultrasound Report Signed Patient: Yarelis Nielsen#: [id number] : 1975Acct:[id number] Age/Sex: 49 / FADM Date: 04/20/24 Loc: HO.US Attending Dr: Claritza Leonard DO Ordering Physician: Claritza Leonard DO Date of Service: 04/20/24 Procedure(s): US renal BI Accession Number(s): [id number] cc: Claritza Leonard DO CLINICAL HISTORY: probable [...] 04/21/24 1204 DD/ 1204 TD/TT: 04/21/24 1204 Machine Tool Operator: us Claritza Leonard DO IMG US PROCEDURES Edited Res ult - Final * US Pelvis Transvaginal (04/20/2024 3:25 PM EST) Anatomical Region Laterality Modality Pelvis Ultrasound 04/20/2024 3:25 PM EST Narrative 04/21/2024 9:28 AM EST ? [facility] ?[address] ?[place] [address] ? Ultrasound Report ? Signed ? Patient: Corina Nielsen ?MR#: [id number] ?? [id number] ? : 1975 ?Acct:[id number] ? Age/Sex: 49 / F ?ADM Date: 04/20/24 ? Loc: HO.US ? Attending Dr: Claritza Leonard DO ? Ordering Physician: Claritza Leonard DO ?? Date of Service: 04/20/24 ?? Procedure(s): US pelvic and transvaginal ?? Accession Number(s): [id number] ? cc: Claritza Leonard DO ? EXAMINATION: [...] DD/ 1525 ? TD/TT: 04/20/24 1555 ? Machine Tool Operator: ? Procedure Note Bonita, Image - 04/21/2024 [place] [address] Ultrasound Report Signed Patient: Yarelis Nielsen#: [id number] : 1975Acct:[id number] Age/Sex: 49 / FADM Date: 04/20/24 Loc: HO.US Attending Dr: Claritza Leonard DO Ordering Physician: Claritza Leonard DO Date of Service: 04/20/24 Procedure(s): US pelvic and transvaginal Accession Number(s): [id number] cc: Claritza Leonard DO EXAMINATION: US PELVIS [...] 04/21/24 0926 DD/ 1525 TD/TT: 04/20/24 1555 Machine Tool Operator: us Claritza Leonard DO IMG US PROCEDURES Edited Res ult - Final * XR Hip 2 or 3 Views Left (03/29/2024 1:06 PM EST) Anatomical Region Laterality Modality Lower Extremities, Hip Left Radiograp hic Imaging 03/29/2024 1:06 PM EST Narrative 03/29/2024 1:08 PM EST ? [facility] ?[address] ?[place] [address] ?XRay Report ? Signed ? Patient: Abrams James,Corina ?MR#: [id number] ?? [id number] ? : 1975 ?Acct:[id number] ? Age/Sex: 49 / F ?ADM Date: 01/03/25 ? Loc: HO.XRAY ? Attending Dr: Jada CLEMENT ? Ordering Physician: Jada Cervantes ?? Date of Service: 03/26/24 ?? Procedure(s): XR hip LT min 2V w/wo pel ?? Accession Number(s): [id number] ? cc: Jada Cervantes; Marian Crook MD [...] DD/ 1306 ? TD/TT: 03/29/24 1306 ? Machine Tool Operator: ? Procedure Note Virginiakyleter, Image - 03/29/[address] [address] XRay Report Signed Patient: Baljit NielsenR#: [id number] : 1975Acct:[id number] Age/Sex: 49 / FADM Date: 03/26/24 Loc: HO.EZEQUIELAY Attending Dr: Jada CLEMENT Ordering Physician: Jada Cervantes Date of Service: 03/26/24 Procedure(s): XR hip LT min 2V w/wo pel Accession Number(s): [id number] cc: Jada Cervantes; Marian Crook MD CLINICAL [...] 03/29/24 1307 DD/ 1306 TD/TT: 03/29/24 130 Machine Tool Operator: [employer] External Provider IMG XR PROCEDURES Edited Result - Final * Hepatitis C Ab (03/27/2024 10:19 AM EST) Hepatitis C Antibody Nonreactive Nonreactive [facility] Comment:Antibodies to HCV no t detected; does not exclude early acuteHCV infection. 03/27/2024 10:1 9 AM EST 03/27/2024 10:19 AM EST us Generic External Data Provider LAB BLOOD ORDERAB LES Final Result Performing Organization Address [facility] Co de Phone Number [facility] [address] [place] [phone] * TSH with Reflex to Free T4 (03/27/2024 10:19 AM EST) Pathologist [facility] TSH reflex Free T4 0.59 0.32 - 4.0 uIU/mL [facility] 03/27/2024 10:1 9 AM EST 03/27/2024 10:19 AM EST us Generic External Data Provider LAB BLOOD ORDERAB LES Final Result Performing Organization Address [facility] de Phone Number [facility] [address] [place] [phone] * (ABNORMAL) Iron And Total Iron Binding Capacity (03/27/2024 10:19 AM EST) Iron 298(H) 30 - 160 mcg/dL [facility] Total Iron Binding Capacity 323 228 - 428 mcg/dL [facility] Percent Iron Saturation 92(H) 15 - 50 % [facility] Unsaturated Iron Binding <25 ug/dL [facility] 03/27/2024 10:1 9 AM EST 03/27/2024 10:19 AM EST us Generic External Data Provider LAB BLOOD ORDERAB LES Final Result Performing Organization Address [facility] Co de Phone Number [facility] [address] [place] [phone] * Hepatitis A Antibody, Total (03/27/2024 10:19 AM EST) Hepatitis A Antibody IgG Nonreactive Nonreactive [facility] 03/27/2024 10:1 9 AM EST 03/27/2024 10:19 AM EST us Generic External Data Provider LAB BLOOD ORDERAB LES Final Result Performing Organization Address [facility] de Phone Number [facility] [address] [place] [phone] * Tissue Transglutaminase Antibody, IgA (03/27/2024 10:19 AM EST) Transglutaminase IgA <1.0 U/mL [facility] Comment:Value Interpretation ----- <15.0 Antibody not detected> or = 15.0 Antibody detectedTHIS TEST WAS PERFORMED AT:[employer] [place] [phone] OLIVAS MD 03/27/2024 10:1 9 AM EST 03/27/2024 10:19 AM EST us Generic External Data Provider LAB BLOOD ORDERAB LES Final Result Performing Organization Address [facility] de Phone Number [facility] [address] [place] [phone] * Hepatitis B surface antigen, EIA (03/27/2024 10:19 AM EST) Hepatitis B Surface Ag Negative Negative [facility] 03/27/2024 10:1 9 AM EST 03/27/2024 10:19 AM EST us Generic External Data Provider LAB BLOOD ORDERAB LES Final Result Performing Organization Address [facility] Co de Phone Number [facility] [address] [place] [address] [phone] * Hepatitis B Core Antibody, Total (03/27/2024 10:19 AM EST) [facility] Hepatitis B Core Antibody Nonreactive Nonreactive [facility] 03/27/2024 10:1 9 AM EST 03/27/2024 10:19 AM EST Generic External Data Provider LAB BLOOD ORDERAB LES Final Result Performing Organization Address City/[facility]/ZIP Co de Phone Number [facility] [address] [place] [phone] * HIV-1/2 Antigen and Antibodies, Fourth Generation, with Reflexes (03/27/2024 10:19 AM EST) [facility] HIV AB/AG Nonreactive Nonreactive [facility] Comment:HIV-1 p24 Ag and/or HIV-1/HIV-2 Ab not detected.A test result that is nonreactive does not exclude thepossibility of exposure to or infection with HIV-1 and/orHIV-2. Nonreactive results in this assay for individualswith prior exposure to HIV-1 and/or HIV-2 may be due toantigen and antibody levels that are below the limit ofdetection of this assay.The [employer] HIV Ag/Ab Combo assay result andsupplemental assay results should be interpreted inconjunction with the patient's clinical presentation,history and other laboratory results. If the results areinconsistent with clinical evidence, additional testing issuggested to confirm the result. 03/27/2024 10:1 9 AM EST 03/27/2024 10:19 AM EST us Generic External Data Provider LAB BLOOD ORDERAB LES Final Result Performing Organization Address [facility]/ZIP Co de Phone Number [facility] [address] [place] [phone] * Hepatitis B Surface Antibody, Qualitative (03/27/2024 10:19 AM EST) [facility] ~Hepatitis B Surface Antibody REACTIVE Nonreactive [facility] Comment:REACTIVE: > 11.99 mI U/mL 03/27/2024 10:1 9 AM EST 03/27/2024 10:19 AM EST Generic External Data Provider LAB BLOOD ORDERAB LES Final Result Performing Organization Address [facility] Co de Phone Number [facility] [address] [place] [phone] * C-reactive Protein (03/27/2024 10:19 AM EST) C Reactive Protein <0.04 < or = 0.50 mg/dL [facility] 03/27/2024 10:1 9 AM EST 03/27/2024 10:19 AM EST Generic External Data Provider LAB BLOOD ORDERAB LES Final Result Performing Organization Address [facility] Phone Number [facility] [address] [place] [phone] * Immunoglobulin A (03/27/2024 10:19 AM EST) Immunoglobulin A 269 47 - 310 mg/dL [facility] Comment:THIS TEST WAS PERFOR MED AT:[employer] [address] [phone] OLIVAS MD 03/27/2024 10:1 9 AM EST 03/27/2024 10:19 AM EST Generic External Data Provider LAB BLOOD ORDERAB LES Final Result Performing Organization Address [facility] Phone Number [facility] [address] [place] [phone] * Ferritin (03/27/2024 10:19 AM EST) Ferritin 12 10 - 250 ng/mL [facility] 03/27/2024 10:1 9 AM EST 03/27/2024 10:19 AM EST us Generic External Data Provider LAB BLOOD ORDERAB LES Final Result [facility] [address] [facility] [place] [address] [phone] * MR Lumbar Spine w/o Contrast (03/04/2024 7:00 PM EST) Anatomical Region Laterality Modality Spine, L-spine Magnetic Resonan ce 03/04/2024 7:00 PM EST Narrative 03/29/2024 9:08 AM EST ? [facility] ?[address] ?[place] [address] ? Magnetic Resonance Report ? Signed ? Patient: Abrams James,Corina ?MR#: [id number] ?? [id number] ? : 1975 ?Acct:[id number] ? Age/Sex: 49 / F ?ADM Date: 03/04/24 ? Loc: HO.MRI ? Attending Dr: Claritza Leonard DO ? Ordering Physician: Claritza Leonard DO ?? Date of Service: 03/04/24 ?? Procedure(s): MR lumbar spine wo con ?? Accession Number(s): [id number] ? cc: [facility]; Claritza Leonard DO ? EXAMINATION: ?? [...] DD/ 1900 ? TD/TT: 03/04/24 1920 ? Machine Tool Operator: ? Procedure Note Bonita, Image - 03/29/[address] [address] Magnetic Resonance Report Signed Patient: Yarelis Nielsen#: [id number] : 1975Acct:[id number] Age/Sex: 49 / FADM Date: 03/04/24 Loc: HO.MRI Attending Dr: Claritza Leonard DO Ordering Physician: Claritza Leonard DO Date of Service: 03/04/24 Procedure(s): MR lumbar spine wo con Accession Number(s): [id number] cc: [facility]; Claritza Leonard DO EXAMINATION: MR LUMBAR [...] MDin OV> 03/29/24904 DD/ 99 TD/TT: 03/04/241919 Machine Tool Operator: Claritza Leonard DO IMG MRI PROCEDURES Edited Re sult - Final * Cologuard?? colon cancer screening (02/02/2024 9:15 AM EST) Cologuard Result Negative Negative 02/08/20 2:05 AM EST [facility] (Touch of ClassicIA #:[id number]) Comment: NEGATIVE TEST RESULT. A negative Cologuard [...] cancer. ??Following a negative Cologuard result, the [place] [employer] Society and U.S. Multi-Society Task Force screening guidelines recommend a Cologuard re-screening interval of 3 years. References: [place] [employer] Guideline for Colorectal Cancer Screening: https://www.cancer.org/cancer/drpyf-aianpd-fflvnd/huejxnguw-dbafnevvg-powbuwq/ac s-rec ommendations.html.; Hector DK, Julio Cesar CR, Janet TroncosoK, Colorectal Cancer Screening: Recommendations for Physicians and Patients from the U.S. Multi-Society Task Force on Colorectal Cancer Screening , Am J Gastroenterology 2017; 112:9180-9934. TEST DESCRIPTION: Composite algorithmic analysis of stool [...] (Isadora Rodriguez al, N Engl J Med 2014;370(14):9184-7834.) Cologuard may produce a false negative or false positive result (no colorectal cancer or precancerous polyp present at colonoscopy follow up). A negative Cologuard test result does not guarantee the absence of CRC or advanced adenoma (pre-cancer). The current Cologuard screening interval is every 3 years. ([place] [employer] Society and U.S. Multi-Society Task Force). Cologuard performance data in a 10,000 patient pivotal study using colonoscopy as the reference method can be accessed at the following location: www.Student Loan Hero.Tinychat/results. Additional description of the Cologuard test process, warnings and precautions can be found at www.Webcrunch.Tinychat. Stool specimen (specimen) Rectal contents / Unknown 02/02/2024 9:15 AM EST 02/03/2024 10:52 AM EST us Marian Crook MD LAB MOLECULAR DIAGNOSTIC S ORDERABLES Final Result [facility] (CLIA #:[id number]) [place] [place] [address], * BI Mammogram Screening Tomosynthesis Bilateral (12/05/2023 3:30 PM EDT) Anatomical Region Laterality Modality Breast Bilateral Mammography 12/05/2023 3:30 PM EDT Narrative 12/19/2023 8:58 AM EDT ? [facility] ? [address] ?[place] [address] ? Mammography Report ? Signed ? Patient: Abrams JamesCorina ?MR#: [id number] ?? [id number] ? : 1975 ?Acct:[id number] ? Age/Sex: 48 / F ?ADM Date: //24 ? Loc: HO.MAMMO ? Attending Dr: Marian Crook MD ? Ordering Physician: Marian Crook MD ?Results: 1Ne ?? gative ? Date of Service: 12/05/23 ?Follow Up: 1 Year From Orig ?? inal Mammogram ? Procedure(s): MM tomosynthesis screening BI ?? Accession Number(s): [id number] ? cc: Marian Crook MD ? EXAMINATION: [...] DD/ 1530 ? TD/TT: 12/05/23 1540 ? Machine Tool Operator: ? Procedure Note Bonita, Image - 12/19/2023 [facility] [address] [place] [address] [place] [address] Mammography Report Signed Patient: Yarelis Nielsen#: [id number] : 1975Acct:[id number] Age/Sex: 48 / FADM Date: 12/05/23 Loc: HO.MAMMO Attending Dr: Marian Crook MD Ordering Physician: Marian Crook MDResults: 1Ne gative Date of Service: 12/05/23Follow Up: 1 Year From Orig inal Mammogram Procedure(s): MM tomosynthesis screening BI Accession Number(s): [id number] cc: Marian Crook MD EXAMINATION: MM SCREENING [...] 12/19/23 0855 DD/ 1530 TD/TT: 12/05/23 1540 Machine Tool Operator: Marian Crook MD IMG BI PROCEDURES Final [...] has been evaluated with computer assisted technology. [facility] Regulatory Affairs Intern : SEE COMMENT [facility] Comment: ALS, CT(ASCP) CT screening location: [address] ??[address] Infection Fungal organisms morphologically consistent with Thais spp. [facility] Interpretation/R esult: Negative for intraepithelial lesion or malignancy. [facility] LMP: NONE GIVEN FOUND[facility]IO N [...] MD LAB PATHOLOGY ORDERABLES Sophie chaudhari Result [facility] [address] * HPV mRNA E6/E7 (06/06/2020 2:03 PM EDT) HPV nRNA E6/E7 Not Detected Not Detected [facility] Comment: Methodology: Front End Web Designer-Mediated Amplification This assay detects E6/E7 viral messenger RNA (mRNA) from 14 high-risk HPV types (16,18,31,33,35,39,45,51,52,56,58,59,66,68). ? The analytical performance characteristics of this assay have been determined by [employer]. The modifications have not been cleared or approved by the FDA. This assay has been validated pursuant to the CLIA regulations and is used for clinical purposes. ?? For additional information, please refer to http://education.Aereo.Tinychat/faq/SIE772h0 (This link if provided for information/ educational purposes only.) 06/06/2020 2:03 PM EDT us Mattie Farr MD LAB BLOOD ORDERABLES Final Re sult [facility] [address] [place] [address], from Last 3 Months or Most Recently Relevant to Health Maintenance Insurance [facility] C3 Care Teams Client Technical Specialist Relationship Specialty Start Date End Date Marian Crook MD [address] [place] [address] PCP - General Internal Medicine 09/12/23
--- OUTSIDE RECORDS SUMMARY | 2024-05-05 12:36 | XMS_ITS | Encounter Summary ---
Author Organization [employer] Address [address] [facility] 7t [place] [address] Care Team Providers Care Tire Bladder Maker Name Role Phone Marian Crook MD Primary Care Provider + Reason for Visit * Reason Onset Date Comments June04/23/2024 Encounter Details Date Type Department Care Team ([facility] st Contact Info) Description 04/23/[address] [facility] [address] [place], [place] [phone] Marian Crook MD [address] [place] [address] June Social History Tobacco Use Types Packs/Day [...] Description 07/02/2024 11:45 AM EDT Office Visit [facility] [address] [place] [address] Marian Crook MD [address] [place] [address] documented as of this encounter Visit Diagnoses Not on filedocumented in this encounter Additional Health Concerns Assessment Noted Time PHQ-9 Depression Total Score: 22 024 2:02 PM EDT documented as of this encounter Care Teams Tire Bladder Maker Relationship Specialty Start Date End Date Marian Crook MD [address] [place] [phone] PCP - General Internal Medicine 09/12/23 documented as of this encounter
--- OUTSIDE RECORDS SUMMARY | 2024-05-05 12:36 | XMS_ITS | Encounter Summary ---
Author Organization [employer] Address 75 [facility] 7t [place] [address] Care Team Providers Care Physical Medicine Physician Name Role Phone Marian Crook MD Primary Care Provider + Encounter Details Date Type Department Care Team (Late st Contact Info) Description 04/27/2024 Orders Only GENERIC EXTERNAL DATA DEPARTMENT [...] Office Visit [facility] [address] [place] [address] Marian Crook MD [address] [place] [address] documented as of this encounter Procedures Procedure Name Priority Date/Time Associated Diagnosis Comments URINALYSIS, COMPLETE, WITH REFLEX TO CULTURE Routine 04/27/2024 12:31 AM EST documented in this encounter Results * (ABNORMAL) Urinalysis, Complete, with Reflex to Culture (04/27/2024 12:31 AM EST) Color Urine Yellow [facility] Appearance Urine Clear [facility] PH 5.5 5.0 - 9.0 [facility] Glucose Urine UA Negative Negative mg/dL [facility] Urine Blood Moderate (2+)(A) Negative [facility] Specific [place] - Urine 1.020 1.005 - 1.025 [facility] Urine Protein Negative Neg-Trace mg/dL [facility] Urine Ketones Negative Negative mg/dL [facility] Nitrite Urine Negative Negative [facility] Leukocyte Esterase Urine Negative Negative [facility] RBC Urine >20(A) 0 - 2 /HPF [facility] Urine WBC 0-5 0 - 5 /HPF [facility] Urine Squamous Epithelial Cell 0-2 0 - 2 /HPF [facility] Urine Bacteria None Seen None Seen [facility] Hyaline Casts, Urine 0-2 0 - 2 /LPF [facility] 04/27/2024 12:3 1 AM EST 04/27/2024 12:34 AM EST Narrative [facility] - 04/27/2024 12:42 AM EST Urine, Clean Catch us Generic External Data Provider LAB URINE ORDERAB LES Final Result Performing Organization Address City/State/[facility] Co de Phone Number [facility] [address] [place] [address] [phone] documented in this encounter Visit Diagnoses Not on filedocumented in this encounter Additional Health Concerns Assessment Noted Time PHQ-9 Depression Total Score: 22 024 2:02 PM EDT documented as of this encounter Care Teams Physical Medicine Physician Relationship Specialty Start Date End Date Marian Crook MD [address] [place] [address] PCP - General Internal Medicine 09/12/23 documented as of this encounter
--- OUTSIDE RECORDS SUMMARY | 2024-05-05 12:36 | XMS_ITS | Encounter Summary ---
Author Organization [employer] Address 75 [facility] 7t [place] [address] Care Team Providers Care Spool Sander Name Role Phone Marian Crook MD Primary Care Provider + Reason for Visit * Reason Comments Med Refill Encounter Details Date Type Department Care Team ([facility] st Contact Info) Description 04/13/2024 Refill [facility] [address] [place], [place] [phone] Marian Crook MD [address] [place], [place] [phone] Social History Tobacco Use Types Packs/Day Years [...] Description 07/02/2024 11:45 AM EDT Office Visit [facility] [address] [place] [address] Marian Crook MD [address] [place] [address] documented as of this encounter Visit Diagnoses Not on filedocumented in this encounter Additional Health Concerns Assessment Noted Time PHQ-9 Depression Total Score: 22 024 2:02 PM EDT documented as of this encounter Care Teams Spool Sander Relationship Specialty Start Date End Date Marian Crook MD [address] [place] [phone] PCP - General Internal Medicine 09/12/23 documented as of this encounter
--- OUTSIDE RECORDS SUMMARY | 2024-05-05 12:36 | XMS_ITS | Encounter Summary ---
Author Organization [employer] Address 75 [facility] 7t [place] [address] Care Team Providers Care Knot Saw Operator Name Role Phone Marian Crook MD [...] 11:45 AM EDT Office Visit [facility] [address] [place], [place] [phone] Marian Crook MD [address] [place] [address] documented as of this encounter Procedures Procedure [...] Thromboplastin Time 31.7 26.0 - 36.8 SEC [facility] Comment:For information rega rding the monitoring of direct thrombininhibitors, please refer to Pharmacy. 04/26/2024 4:47 PM EST 04/26/2024 4:50 PM EST us Generic External Data Provider LAB BLOOD ORDERAB LES Final Result Performing Organization Address [facility]/ZIP Co de Phone Number [facility] [address] [place] [phone] * Prothrombin Time-INR (04/26/2024 4:47 PM EST) Prothrombin Time 12.0 10.9 - 12.4 SEC [facility] INTERNATIONAL NORM RATIO 1.0 0.9 - 1.1 [facility] Comment:INTERNATIONAL NORMAL IZED RATIO (INR) [...] Final Result Performing Organization Address [facility] Co de Phone Number [facility] [address] [place] [phone] * Magnesium (04/26/2024 4:47 PM EST) Magnesium 1.9 1.6 - 2.6 mg/dL [facility] 04/26/2024 4:47 PM EST 04/26/2024 4:50 PM EST us Generic External Data Provider LAB BLOOD ORDERAB LES Final Result Performing Organization Address City/[facility] Co de Phone Number [facility] [address] [place] [address] [phone] * (ABNORMAL) Comprehensive Metabolic Panel (04/26/2024 4:47 PM EST) Sodium 140 135 - 145 mmol/L [facility] Potassium 4.1 3.3 - 5.1 mmol/L [facility] Chloride 108 96 - 108 mmol/L [facility] Carbon Dioxide 28 22 - 29 mmol/L [facility] Anion Gap 8(L) 12 - 20 [facility] Urea Nitrogen (BUN) 17(H) 9 - 16 mg/dL [facility] Creatinine, Serum 0.78 0.5 - 1.4 mg/dL [facility] Creatinine Clr Calc Pharmacy 84.2 [facility] Comment:Provided height and weight: 157.48 cm,77.8 kg.eGFR (calculated from the MDRD study equation) and eCrCl(calculated from the Cockcroft-Gault equation) are based ondifferent parameters and may not yield comparable results.If eCrCl result is absurd, please check patient'sheight/weight. Estimated Glomerular Filt Rate >60 [facility] Comment:Chronic Kidney Disea se: Estimated GFR < 60 mL/min/1.24q0Vjyrlf Kidney Disease: Estimated GFR < 15 mL/min/1.73m2 Glucose 80 60 - 115 mg/dL [facility] Calcium 9.0 8.4 - 10.2 mg/dL [facility] Bilirubin, Total 0.3 0.0 - 1.0 mg/dL [facility] Aspartate Amino Transferase 21 5 - 31 U/L [facility] Alanine Aminotransferase 14 0 - 31 U/L [facility] Total Protein 7.6 6.5 - 8.0 g/dL [facility] Albumin Level 4.1 3.5 - 5.0 g/dL [facility] Alkaline Phosphatase 72 39 - 117 U/L [facility] 04/26/2024 4:47 PM EST 04/26/2024 4:50 PM EST us Generic External Data Provider LAB BLOOD ORDERAB LES Final Result [facility] [address] [place], [place] [phone] * (ABNORMAL) CBC auto differential (04/26/2024 4:47 PM EST) White Blood Count 6.0 4.8 - 10.8 X10*3/uL [facility] Red Blood Count 4.05(L) 4.20 - 5.50 X10*6/uL [facility] Hemoglobin 12.4 12.0 - 16.0 g/dl [facility] Hematocrit 37.7 37.0 - 47.0 % [facility] Mean Corpuscular Volume 93.1 80.0 - 98.0 fL [facility] Mean Corpuscular Hemoglobin 30.6 27.0 - 33.0 pg [facility] Mean Corpuscular HGB Conc 32.9 31.0 - 35.0 g/dl [facility] Red Cell Distribution Width 12.3 11.0 - 16.0 % [facility] Platelet Count 269 160 - 400 X10*3/uL [facility] Mean Platelet Volume 10.9 9.4 - 12.3 fL [facility] Neutrophils Percent Auto 55.1 45 - 73 % [facility] Imm Gran Pct Auto 0.0 0.0 - 0.4 % [facility] Lymphocytes Percent Auto 29.4 20 - 40 % [facility] Monocytes Percent Auto 10.6 2 - 11 % [facility] Eosinophils Percent Auto 3.9 0 - 4 % [facility] Basophils Percent Auto 1.0 0 - 2 % [facility] NRBC Pct Auto 0.0 0.0 - 0.2 /100WBC [facility] Neutrophils Absolute Auto 3.3 2.0 - 8.3 x10*3/uL [facility] Imm Gran Abs Auto 0.00 0.00 - 0.03 X10*3/uL [facility] Lymphocytes Absolute Auto 1.8 1.2 - 4.9 X10*3/uL [facility] Monocytes Absolute Auto 0.6 0.1 - 1.2 X10*3/uL [facility] Eosinophils Absolute Auto 0.2 0.0 - 0.4 X10*3/uL [facility] Basophils Absolute Auto 0.1 0.0 - 0.2 X10*3/uL [facility] NRBC Abs Auto 0.000 0.0 - 0.012 X10*3/uL [facility] 04/26/2024 4:47 PM EST 04/26/2024 4:50 PM EST us Generic External Data Provider LAB BLOOD ORDERAB LES Final Result Performing Organization Address City/State/[facility] Co de Phone Number [facility] [address] [place] [address] [phone] documented in this encounter Visit Diagnoses Not on filedocumented in this encounter Additional Health Concerns Assessment Noted Time PHQ-9 Depression Total Score: 22 024 2:02 PM EDT documented as of this encounter Care Teams Knot Saw Operator Relationship Specialty Start Date End Date Marian Crook MD [address] [place] [address] PCP - General Internal Medicine 09/12/23 documented as of this encounter
--- OUTSIDE RECORDS SUMMARY | 2024-05-05 12:36 | XMS_ITS | Encounter Summary ---
Author Organization [employer] Address [address] [facility] 7t [place] [address] Care Team Providers Care Line Manager Name Role Phone Marian Crook MD Primary Care Provider + Reason for Referral * Consultation (Urgent) - Authorized Specialty Diagnoses / Procedures Referred By Lien barragan Referred To Contact Urology Diagnoses Bilateral renal cysts Claritza Leonard DO [address] [place] [address] Phone: tel: fax: [facility] [address] [place], [place] Phone: tel: fax: Referral ID Status Reason Start Date Expiration Date Visits Requested Visits Authorized [id number] Authorized Specialty Services Required 04/29/2024 04/29/2025 6 6 * Consultation (STAT) - Authorized Specialty Diagnoses / Procedures Referred By Lien barragan Referred To Contact Obstetrics and Gynecology Diagnoses Uterine leiomyoma, unspecified location Excessive bleeding in premenopausal period Claritza Leonard DO [address] [place] [address] Phone: tel: fax: [facility] [address] 5[address] (Main Hospital Entrance) [place], [place] Phone: tel: fax: Referral ID Status Reason Start Date Expiration Date Visits Requested Visits Authorized [id number] Authorized Specialty Services Required 04/29/2024 04/29/2025 9 9 Encounter Details Date Type Department Care Team (Late st Contact Info) Description 04/29/2024 Orders Only [facility] [address] [place] [address] Claritza Leonard DO [address] [place] [address] Bilateral renal cysts (Primary Dx); Uterine leiomyoma, unspecified location; Excessive bleeding in premenopausal period Social History Tobacco Use Types Packs/Day Years [...] is your housing situation today? I have briabecky frank 01/02/[address] you [...] Progress Notes * Claritza Leonard DO - 04/29/2024 11:50 AM EST PAPER GRADER and Urology referrals placed. documented in this encounter Plan of Treatment Upcoming Encounters Date Type Department Care Team (Late st Contact Info) Description 07/02/2024 11:45 AM EDT Office Visit [facility] [address] [place] [phone] Marian Crook MD [address] [place] [phone] Scheduled Referrals Name Type Priority Associated Diagnoses Orde r Schedule Referral to Gynecology Outpatient Referral STAT Uterine leiomyoma, unspecified location Excessive bleeding in premenopausal period Expected: 04/29/2024 (Approximate), Expires: 04/29/2025 Referral to Urology Outpatient Referral Urgent Bilateral renal cysts Expected: 04/29/2024 (Approximate), Expires: 04/29/2025 documented as of this encounter Visit Diagnoses Diagnosis Bilateral renal cysts- Primary Unspecified congenital cystic kidney disease Uterine leiomyoma, unspecified location Excessive bleeding in premenopausal period documented in this encounter Additional Health Concerns Assessment Noted Time PHQ-9 Depression Total Score: 22 024 2:02 PM EDT documented as of this encounter Care Teams Line Manager Relationship Specialty Start Date End Date Marian Crook MD [address] [place] [address] PCP - General Internal Medicine 6/21/24 documented as of this encounter
--- OUTSIDE RECORDS SUMMARY | 2024-05-05 12:36 | XMS_ITS | Encounter Summary ---
Author Organization [employer] Address [address] [facility] 7t [place] [address] Care Team Providers Care Lacquer Spray Booth Operator Name Role Phone Marian Crook MD Primary Care Provider + Reason for Visit * Reason Onset Date Comments Med Refill 03/25/2024 Encounter Details Date Type Department Care Team ([facility] st Contact Info) Description 03/25/2024 Refill [facility] [address] [place] [address] Marian Crook MD [address] [place] [address] Moderate persistent asthma without complication Social History [...] Description 07/02/2024 11:45 AM EDT Office Visit [facility] [address] [place] [address] Marian Crook MD [address] [place] [address] documented as of this encounter Visit Diagnoses Diagnosis Moderate persistent asthma without complication documented in this encounter Additional Health Concerns Assessment Noted Time PHQ-9 Depression Total Score: 22 024 2:02 PM EDT documented as of this encounter Care Teams Lacquer Spray Booth Operator Relationship Specialty Start Date End Date Marian Crook MD [address] [place] [address] PCP - General Internal Medicine 09/12/23 documented as of this encounter
--- OUTSIDE RECORDS SUMMARY | 2024-05-05 12:36 | XMS_ITS | Encounter Summary ---
Author Organization [employer] Address [address] [facility] 7t [place] [address] Care Team Providers Care Plant Operations Manager Name Role Phone Marian Crook MD Primary Care Provider + Reason for Visit * Reason Onset Date Comments Results 03/30/2024 Encounter Details Date Type Department Care Team ([facility] st Contact Info) Description 03/30/2024 Telephone [facility] [address] [place], [place] [phone] Marian Crook MD [address] [place], [place] [phone] Results Social History Tobacco Use Types Packs/Day [...] 2:01 PM EST TC placed to patient [phone] to inform ordering provider has placed US [...] 4:34 PM EST TC placed to patient [phone] in regards to below message. Patient advised [...] chart and patient was seen by [facility] PM on 03/27/24 and they are recommending injections. RN advised patient to continue with PM plan of receiving injections. Patient advised we will call her once we receive the US results and they are reviewed by the provider. Patient reports [facility] GI called her regarding her BW results [...] 03/27/2024 Date when done: 02/26/2024 Facility: [facility] documented in this encounter Plan of Treatment Upcoming Encounters Date Type Department Care Team (Late st Contact Info) Description 07/02/2024 11:45 AM EDT Office Visit [facility] MED[facility] [address] [place] [phone] Marian Crook MD [address] [place] [address] documented as of this encounter Visit Diagnoses Not on filedocumented in this encounter Additional Health Concerns Assessment Noted Time PHQ-9 Depression Total Score: 22 024 2:02 PM EDT documented as of this encounter Care Teams Plant Operations Manager Relationship Specialty Start Date End Date Marian Crook MD [address] [place] [phone] PCP - General Internal Medicine 09/12/23 documented as of this encounter
--- OUTSIDE RECORDS SUMMARY | 2024-05-05 12:36 | XMS_ITS | Encounter Summary ---
Author Organization [employer] Address 75 [facility] 7t [place] [address] Care Team Providers Care Antique Repairer Name Role Phone Marian Crook MD Primary Care Provider + Reason for Visit * Reason Onset Date Comments Med Refill 03/25/2024 Encounter Details Date Type Department Care Team (Late st Contact Info) Description 03/25/2024 Refill [facility] [address] [place] [address] Marian Crook MD [address] [place] [address] Social History Tobacco Use Types Packs/Day Years [...] 11:45 AM EDT Office Visit [facility] [address] [place] [address] Marian Crook MD [address] [place] [address] documented as of this encounter Visit Diagnoses Not on filedocumented in this encounter Additional Health Concerns Assessment Noted Time PHQ-9 Depression Total Score: 22 024 2:02 PM EDT documented as of this encounter Care Teams Antique Repairer Relationship Specialty Start Date End Date Marian Crook MD [address] [place] [phone] PCP - General Internal Medicine 09/12/23 documented as of this encounter
--- OUTSIDE RECORDS SUMMARY | 2024-05-05 12:36 | XMS_ITS | Encounter Summary ---
Author Organization [employer] Address [address] [facility] 7t [place] [address] Care Team Providers Care Counter Manager Name Role Phone Marian Crook MD Primary Care Provider + Reason for Visit * Reason Onset Date Comments Nurse Triage 04/29/2024 Encounter Details Date Type Department Care Team ([facility] st Contact Info) Description 04/29/2024 Telephone [facility] MEDICINE [address] [place], [place] [phone] Marian Crook MD [address] [place] [address] Nurse Triage Social History Tobacco Use Types [...] the past 12 months, has t he [employer] gas, oil or [employer] threatened to shut off services in your [...] Telephone Encounter - Lina Yarbrough RN - 04/29/2024 1:36 PM EST TC placed to patient to [phone] in regards to below message. Patient informed Dr. Leonard has placed STAT referral to CUSTOMER SUPPORT ADVISOR and urgent referral to urologist. Patient advised if she does not receive a call or a letter regarding CUSTOMER SUPPORT ADVISOR referral within a week to return call to [facility] for status. Patient verbalized understanding. Patient to f/u PRN. * Telephone Encounter - Jocelyne Carey RN - 04/29/2024 10:14 AM EST Call returned to Corina James to triage below. Reports seen [place] [facility] for [place]. Per pt confirms that had BW and urine analysis. Per pt did not have a vaginal exam or US. Per pt wassupposed to have CUSTOMER SUPPORT ADVISOR referral. Pt reports having vaginal bleeding x 1.5 weeks. Per pt at the beginning having to change every 1 hour. Pt states now its dark but not bright red. No blood clots. Pt havi ng cramping. Pt also endorses tingling of legs and dizziness. Per pt LMP 3 weeks. For normal length. Per pt abnormal bleeding started after transvaginal US on 04/20/24. Pt states that went to ER as instructed by Team nurse director information security form 04/27 and nothing was done for patient. Patient wants to be referred to CUSTOMER SUPPORT ADVISOR VERA. See that request was sent to ordering provider Dr. Leonard by team nurse. Will forward this note to PCP Marian Crook MD , ordering provider Claritza Leonard DO and RED team Nurses to follow up with patient on referral status. Reviewed home care advise, ER precautions and reasons to call back. Protocol Used: Vaginal Bleeding - Abnormal (Adult) Protocol-Based Disposition: See in Office or Video Visit within 3 Days Override (Final) Disposition: Discuss with PCP and Callback by Nurse Today Override Reason: Other Override Notes: Already seen at [facility] for abnormal bleeding onset after Transvaginal US plan is CUSTOMER SUPPORT ADVISOR referral per notes in chart. Positive Triage Question: * Bleeding or spotting after procedure (e.g., biopsy) or pelvic examination (e.g., pap smear) that lasts > 7 days * All higher-acuity triage questions were negative Care Advice Discussed: * Reasons To Call Back - Severe abdomen pain or lightheadedness occurs - Bleeding worsens - You become worse ED notes scanned into chart by Clinical Care Coordinators for provider review. * Telephone Encounter - Rhoda Diaz - 04/29/2024 9:39 AM EST Patient calling to report ED visit on : Date: 04/27/24 Hospital[place] [facility] Seen for: Heavy bleeding Symptomatic Yes *if yes message should go to Triage Pt is waiting on a referral to OBGYN but stated she is still experiencing heavy bleeding, feeling dizzy and numbness in the legs Contact pt at [phone] (denied harbor department manager) documented in this encounter Plan of Treatment Upcoming Encounters Date Type Department Care Team (Late st Contact Info) Description 07/02/2024 11:45 AM EDT Office Visit [facility] MEDICINE [address] [place] [address] Marian Crook MD [address] [place], [place] [phone] documented as of this encounter Visit Diagnoses Not on filedocumented in this encounter Additional Health Concerns Assessment Noted Time PHQ-9 Depression Total Score: 22 024 2:02 PM EDT documented as of this encounter Care Teams Counter Manager Relationship Specialty Start Date End Date Marian Crook MD [address] [place] [phone] PCP - General Internal Medicine 09/12/23 documented as of this encounter
--- OUTSIDE RECORDS SUMMARY | 2024-05-05 12:36 | XMS_ITS | Encounter Summary ---
Author Organization [employer] Address [address] [facility] 7t [place] [address] Care Team Providers Care Telemarketing Supervisor Name Role Phone Marian Crook MD Primary Care Provider + Reason for Visit * Reason Onset Date Comments Med Refill 03/25/2024 Encounter Details Date Type Department Care Team (Late st Contact Info) Description 03/25/[address] [facility] MEDICINE [address] [place] [address] Claritza Leonard DO [address] [place] [address] Social History Tobacco Use Types Packs/Day Years [...] 11:45 AM EDT Office Visit [facility] MEDICINE [address] [place] [address] Marian Crook MD [address] [place] [address] documented as of this encounter Visit Diagnoses Not on filedocumented in this encounter Additional Health Concerns Assessment Noted Time PHQ-9 Depression Total Score: 22 024 2:02 PM EDT documented as of this encounter Care Teams Telemarketing Supervisor Relationship Specialty Start Date End Date Marian Crook MD [address] [place] [address] PCP - General Internal Medicine 09/12/23 documented as of this encounter
--- OUTSIDE RECORDS SUMMARY | 2024-05-05 12:36 | XMS_ITS | Encounter Summary ---
Author Organization [employer] Address [address] [place] [address] 7t [place] [address] Care Team Providers Care Rn Diabetes Educator Name Role Phone [facility] Primary Care Provider [phone] Marian Crook MD Primary Care Provider + Reason for Visit * Reason Onset Date Comments Nurse Triage 11/18/2022 Encounter Details Date Type Department Care Team (Late st Contact Info) Description 11/18/2022 Telephone [facility] MEDICINE [address] [place] [address] [facility] [address] [place] [address] Nurse Triage Social History Tobacco Use Types [...] 11:45 AM EDT Office Visit [facility] MEDICINE [address] [place] [address] Marian Crook MD [address] [place] [address] documented as of this encounter Visit Diagnoses Not on filedocumented in this encounter Additional Health Concerns Assessment Noted Time PHQ-9 Depression Total Score: 16 06/18/ 023 3:25 PM EDT documented as of this encounter Care Teams Rn Diabetes Educator Relationship Specialty Start Date End Date Alisha Hook FNP [address] [place] [address] PCP - General Family Medicine 11/14/21 09/11/23 Marian Crook MD [address] [place] [address] PCP - General Internal Medicine 09/12/23 documented as of this encounter
--- OUTSIDE RECORDS SUMMARY | 2024-05-05 12:36 | XMS_ITS | Encounter Summary ---
Author Organization [employer] [facility] Address [address] [place] [address] 7 [place] [address] Care Team Providers Care Maintenance And Custodian Supervisor Name Role Phone Marian Crook MD Primary Care Provider + Reason for Visit * Reason Comments Med Refill Encounter Details Date Type Department Care Team (Late Contact Info) Description 11/27/2023 Refill [facility] MEDICINE [address] [place] [address] [phone] Marian Crook MD [address] [place], [place] [phone] Social History Tobacco Use Types Packs/Day Years [...] Description 07/02/2024 11:45 AM EDT Office Visit [facility] MEDICINE [address] [place] [address] [phone] Marian Crook MD [address] [place], [place] [phone] documented as of this encounter Visit Diagnoses Not on filedocumented in this encounter Additional Health Concerns Assessment Noted Time PHQ-9 Depression Total Score: 16 023 3:25 PM EDT documented as of this encounter Care Teams Maintenance And Custodian Supervisor Relationship Specialty Start Date End Date Marian Crook MD [address] [place] [address] PCP - General Internal Medicine 09/12/23 documented as of this encounter
--- OUTSIDE RECORDS SUMMARY | 2024-05-05 12:36 | XMS_ITS | Encounter Summary ---
Author Organization [employer] [facility] Address [address] [place] [address] 7 [place] [address] Care Team Providers Care Mobile Unit Assistant Name Role Phone [facility] Primary Care Provider [phone] Marian Crook MD Primary Care Provider + Encounter Details Date Type Department Care Team (Late st Contact Info) Description 04/03/2023 Abstract [facility] MEDICINE [address] [place] [address] [phone] [facility] [address] [place] [address] Social History Tobacco Use Types Packs/Day Years [...] Description 07/02/2024 11:45 AM EDT Office Visit [facility] MEDICINE [address] [place] [phone] Marian Crook MD [address] [place], [place] [phone] documented as of this encounter Visit Diagnoses Not on filedocumented in this encounter Additional Health Concerns Assessment Noted Time PHQ-9 Depression Total Score: 16 023 3:25 PM EDT documented as of this encounter Care Teams Mobile Unit Assistant Relationship Specialty Start Date End Date Miladys RACQUEL Brito [address] [place] [address] PCP - General Family Medicine 11/14/21 09/11/23 Marian Crook MD [address] [place] [address] PCP - General Internal Medicine 09/12/23 documented as of this encounter
--- OUTSIDE RECORDS SUMMARY | 2024-05-05 12:36 | XMS_ITS | Encounter Summary ---
Author Organization [employer] Address [address] [place] [address] 7t [place] [address] Care Team Providers Care Construction Skills Teacher Name Role Phone Marian Crook MD Primary Care Provider + Reason for Referral * Imaging (Routine) - Closed Specialty Diagnoses / Procedures Referred By Contac t Referred To Contact Radiology Diagnoses Abnormal MRI, lumbar spine Procedures US Pelvis Transvaginal Claritza Leonard DO [address] [place] [address] Phone: tel: fax: [address] Phone: tel: fax: Referral ID Status Reason Start Date Expiration Date Visits Re quested Visits Authorized [id number] Closed 04/09/2024 04/09/2025 1 1 * Imaging (Routine) - Closed Specialty Diagnoses / Procedures Referred By Contac t Referred To Contact Radiology Diagnoses Abnormal MRI, lumbar spine Procedures Us Pelvis complete Claritza Leonard DO [address] [place] [address] Phone: tel: fax: [address] Phone: tel: fax: Referral ID Status Reason Start Date Expiration Date Visits Re quested Visits Authorized [id number] Closed 04/09/2024 04/09/2025 1 1 * Imaging (Routine) - Closed Specialty Diagnoses / Procedures Referred By Lien barragan Referred To Contact Radiology Diagnoses Abnormal MRI, lumbar spine Procedures US RENAL BI Claritza Leonard DO [address] [place] [address] Phone: tel: fax: [address] Phone: tel: fax: Referral ID Status Reason Start Date Expiration Date Visits Re quested Visits Authorized [id number] Closed 04/09/2024 04/09/2025 1 1 Encounter Details Date Type Department Care Team (Late st Contact Info) Description 04/09/2024 Orders Only [facility] MEDICINE [address] [place] [address] Claritza Leonard DO [address] [place] [address] Abnormal MRI, lumbar spine (Primary Dx) Social [...] Description 07/02/2024 11:45 AM EDT Office Visit [facility] MEDICINE [address] [place] [address] Marian Crook MD [address] [place] [address] Scheduled Orders Name Type Priority Associated Diagnoses [...] EST Narrative 04/21/2024 12:05 PM EST ? [facility] ?[address] ?[place] [address] ? Ultrasound Report ? Signed ? Patient: Nika Nielsena ?MR#: [id number] ? : 1975 ?Acct:[id number] ? Age/Sex: 49 / F ?ADM Date: 04/20/24 ? Loc: HO.US ? Attending Dr: Claritza Leonard DO ? Ordering Physician: Claritza Leonard DO ?? Date of Service: 04/20/24 ?? Procedure(s): US renal BI ?? Accession Number(s): [id number] ? cc: Claritza Leonard DO ? CLINICAL [...] DD/ 1204 ? TD/TT: 04/21/24 1204 ? Shipping Specialist: ? Procedure Note Donotuseinterpreter, Image - 04/21/[address] [address] Ultrasound Report Signed Patient: Yarelis Nielsen#: [id number] : 1975Acct:[id number] Age/Sex: 49 / FADM Date: 04/20/24 Loc: HO.US Attending Dr: Claritza Leonard DO Ordering Physician: Claritza Leonard DO Date of Service: 04/20/24 Procedure(s): US renal BI Accession Number(s): [id number] cc: Claritza Leonard DO CLINICAL HISTORY: probable [...] 04/21/24 1204 DD/ 1204 TD/TT: 04/21/24 1204 Shipping Specialist: us Claritza Leonard DO IMG US PROCEDURES Edited Res ult - Final * US Pelvis Transvaginal (04/20/2024 3:25 PM EST) Anatomical Region Laterality Modality Pelvis Ultrasound 04/20/2024 3:25 PM EST Narrative 04/21/2024 9:28 AM EST ? [place] [facility] ?[address] ?[place] [address] ? Ultrasound Report ? Signed ? Patient: Abrams James,Corina ?MR#: [id number] ? : 1975 ?Acct:[id number] ? Age/Sex: 49 / F ?ADM Date: 04/20/24 ? Loc: HO.US ? Attending Dr: Claritza Leonard DO ? Ordering Physician: Claritza Leonard DO ?? Date of Service: 04/20/24 ?? Procedure(s): US pelvic and transvaginal ?? Accession Number(s): [id number] ? cc: Claritza Leonard DO ? EXAMINATION: [...] DD/ 1525 ? TD/TT: 04/20/24 1555 ? Shipping Specialist: ? Procedure Note Donotuseinterpreter, Image - 04/21/2024 [place] [address] Ultrasound Report Signed Patient: Baljit NielsenR#: [id number] : 1975Acct:[id number] Age/Sex: 49 / FADM Date: 04/20/24 Loc: HO.US Attending Dr: Claritza Leonard DO Ordering Physician: Claritza Leonard DO Date of Service: 04/20/24 Procedure(s): US pelvic and transvaginal Accession Number(s): [id number] cc: Claritza Leonard DO EXAMINATION: US PELVIS [...] 04/21/24 0926 DD/ 1525 TD/TT: 04/20/24 1555 Shipping Specialist: us Claritaz Leonard DO IMG US PROCEDURES Edited Res ult - Final documented in this encounter Visit Diagnoses Diagnosis Abnormal MRI, lumbar spine- Primary documented in this encounter Additional Health Concerns Assessment Noted Time PHQ-9 Depression Total Score: 22 024 2:02 PM EDT documented as of this encounter Care Teams Construction Skills Teacher Relationship Specialty Start Date End Date Marian Crook MD [address] [place] [address] PCP - General Internal Medicine 09/12/23 documented as of this encounter
--- OUTSIDE RECORDS SUMMARY | 2024-05-05 12:36 | XMS_ITS | Encounter Summary ---
Author Organization [employer] Address [address] [facility] 7t [place] [address] Care Team Providers Care Ticket Puller Name Role Phone Marain Crook MD Primary Care Provider + Reason for Visit * Reason Onset Date Comments Med Refill 03/25/2024 Encounter Details Date Type Department Care Team (Late st Contact Info) Description 03/25/2024 Refill [facility] MEDICINE [address] [place] [address] Claritza Leonard DO [address] [place] [address] Social History Tobacco Use Types Packs/Day Years [...] 07/02/2024 11:45 AM EDT Office Visit [facility] MEDICINE [address] [place] [address] Marian Crook MD [address] [place] [address] documented as of this encounter Visit Diagnoses Not on filedocumented in this encounter Additional Health Concerns Assessment Noted Time PHQ-9 Depression Total Score: 22 024 2:02 PM EDT documented as of this encounter Care Teams Ticket Puller Relationship Specialty Start Date End Date Marian Crook MD [address] [place] [address] PCP - General Internal Medicine 09/12/23 documented as of this encounter
--- OUTSIDE RECORDS SUMMARY | 2024-05-05 12:36 | XMS_ITS | Encounter Summary ---
Author Organization [employer] Address [address] [facility] 7t [place] [address] Care Team Providers Care Prior Authorization Nurse Name Role Phone Marian Crook MD Primary Care Provider + Reason for Visit * Reason Onset Date Comments Results 04/26/2024 Encounter Details Date Type Department Care Team ([facility] st Contact Info) Description 04/26/2024 Telephone [facility] MEDICINE [address] [place], [place] [phone] Lina Yarbrough RN [address] [place] [address] Results Social History Tobacco Use Types Packs/Day [...] 3:20 PM EST TC placed to patient [phone] to inform of below results. Patient verbalized understanding and is aware of referral to urology. Patient is also symptomatic r/t uterine fibroids and wants referralto CELL CHANGER. RN advised patient, Dr. Leonard will place referral to urology and CELL CHANGER and patient will receive a TC or [...] understanding and reports she will go to [facility] now. Patient advised to call [facility] once discharged for ED f/u appointment. Patient to f/u PRN. * Telephone Encounter - Paulino Arizmendi - 04/26/2024 2:51 PM EST Tc from pt returning call regarding prior message. Contact pt at [phone] * Telephone Encounter - Lina Yarbrough RN - 04/26/2024 9:04 AM EST TC placed to patient [phone] to inform of US results. Patients pelvic US confirmed uterine fibroids largest being 5cm and PCP will refer patient to CELL CHANGER if symptomatic heavy menstrual periods, pelvic pain, [...] 07/02/2024 11:45 AM EDT Office Visit [facility] MEDICINE [address] [place] [address] Marian Crook MD [address] [place] [address] documented as of this encounter Visit Diagnoses Not on filedocumented in this encounter Additional Health Concerns Assessment Noted Time PHQ-9 Depression Total Score: 22 024 2:02 PM EDT documented as of this encounter Care Teams Prior Authorization Nurse Relationship Specialty Start Date End Date Marian Crook MD [address] [place] [address] PCP - General Internal Medicine 09/12/23 documented as of this encounter
[2024-05-05 12:54] LABS: HCG Quantitative < 2 mIU/mL; TSH reflex Free T4 0.78 uIU/mL (0.32-4.0)
[2024-05-06 07:20] LABS: CT PCR NOT DETECTED (Not Detect.); NG PCR NOT DETECTED (Not Detect.)
[2024-05-06 07:33] LABS: Follicle Stimulating Hormone 14.4 mIU/mL; Lutenizing Hormone 7.8 mIU/mL
[2024-05-12 14:49] LABS: HPV Genotype 16 Negative (Negative); HPV Genotype 18 Negative (Negative); HPV High Risk Negative (Negative)
== END 2024-05-05 10:23 | disposition home or self-care (01) ==
LOC: HO.LNP 10:22
PROVIDERS: PCP Internal Medicine; Visit Provider Obstetrics & Gynecology
DX: N93.9 Abnormal uterine and vaginal bleeding, unspecified (principal); D25.9 Leiomyoma of uterus, unspecified
CPT/HCPCS: 83001; 83002; 84443; 84702; 85027; 87491; 87591; 87626; 88175; 99202

== ENCOUNTER 2024-05-05 10:22 | Outpatient (AMB) | payer MEDICAID, SELFPAY ==
--- NOTE | 2024-05-05 10:24 | MHC.OFFVIS ---
Vital Signs 05/05/24 10:31 Height 5 ft 3 in Weight 170 lb BMI 30.1 BP 110/74 Intake Visit Reasons: Leiomyoma of Uterus [employer] Delivery Driver Required: Yes [employer] Delivery Driver Language: [employer] Apprentice Services: [employer] Delivery Driver Present (in person) [employer] Delivery Driver Name: Gloria ADORNO Information Interpreted: non-clinical & clinical Accompanied by: Self / Same As Patient Allergies No Known Allergies [No Known Allergies*] Allergy (Verified 05/05/24 10:30) HPI Comments Details: Presenting for emergency room visit follow-up. The patient is having heavy menstrual cycles associated with passage of blood clots and pelvic cramps. The following workup was recently done: H and H 12.4/37.7 TSH within normal Pelvic ultrasound showed the following: Uterus: The uterus is anteverted and measures 9 x 5 x 7 cm. Volume is 164 cc. The cervix measures 3 cm. The double wall endometrial thickness is 2 mm. There is a 5 cm heterogeneous soft tissue lesion in the anterior body of the uterus. There is a 1.2 cm heterogeneous soft tissue lesion in the posterior body of the myometrium. Adnexa: Both ovaries are visualized. There is normal color flow to the adnexa. There is no ovarian torsion. There is no pelvic ascites or fluid collection. Right ovary measures 3 x 1 x 3 cm. Volume is 6 cc. There is a 2.4 cm anechoic lesion without flow on color Doppler interrogation. Left ovary measures 4 x 3 x 4 cm. Volume is 22 cc. There is a 2.4 cm anechoic structure without flow on color Doppler interrogation. Last Pap smear in 2018 was negative Last mammogram in 12/15 was BI-RADS 1 [facility] Medical History delivery delivered Depression Anal fissure Hemorrhoids Chronic RLQ pain Polyuria Dizziness FILIBERTO (obstructive sleep apnea) Moderate persistent asthma in adult without complication Chronic low back pain Iron deficiency Arthritis History of asthma Surgical History S/P laparoscopic sleeve gastrectomy H/O abdominoplasty Family History Mother History of hypertension Arthritis Glaucoma Father Heart problem History of hypertension Brother Heart problem History of hypertension Sister History of hypertension Brother No problems noted. Brother No problems noted. Brother No problems noted. Brother No problems noted. Sister Ovarian cancer Sister No problems noted. Sister No problems noted. Social History Household Members: Spouse and Children Housing: House Alcohol intake: current Alcohol intake frequency: holidays/special occasions only Patient Tobacco Use Status: Never used Tobacco service: No Current occupational status: employed Female Reproductive History Menstrual Age of Menarche: 14 Duration of menses: 6-7 days Date of last menstrual period: 04/09/24 Total pregnancies: 3 Full term: 3 History of abnormal pap smear: Yes Date of Mammogram: 12/05/23 Review of Systems Const All systems reviewed & are unremarkable except as noted in HPI and below Card Reports as per HPI Resp Reports as per HPI GI Reports as per HPI and Reports no additional complaints Reports as per HPI Physical Exam Vital Signs: Last Vital Signs BP 110/74 05/05/24 10:31 BMI result Body Mass Index 30.1 Const General: cooperative, healthy appearing and comfortable Chest Chest palpation & inspection: normal inspection of the chest and normal palpation of entire chest wall Breast/axilla inspection: normal inspection of the breasts and normal inspection of the axillae Breast/axilla palpation: normal palpation of the breasts, normal palpation of the axillae and no axillary lymphadenopathy Resp Effort & Inspection: normal respiratory effort Auscultation: clear to auscultation bilaterally Percussion: percussion normal Cardio Palpation: normal PMI Rate: regular rate Rhythm: regular rhythm Heart sounds: no murmurs and no rubs Peripheral pulses: Peripheral pulses 2+ throughout GI Inspection: Yes normal to inspection Palpation (GI): Soft to palpation, nontender, no guarding, not rigid and No hepatosplenomegaly present Percussion: Yes normal to percussion Auscultation: normal bowel sounds Rectal Exam - Female: deferred General: Yes bladder normal to palpation External Female Exam: No lesion Speculum Exam - Vagina: normal appearance of the vagina, normal palpation, normal vaginal discharge and not erythematous Speculum Exam - Cervix: normal appearance of the cervix and normal palpation Bimanual exam- vagina & uterus: normal bimanual exam, normal palpation, uterine size normal, bladder normal to palpation, consistency normal and normal palpation Bimanual Exam- Adnexa, other: normal adnexae, no masses and no tenderness Assessment & Plan Assessment & Plan (1) Uterine fibroid: Code(s): D25.9 - Leiomyoma of uterus, unspecified Category: Medical Plan: Discussed with the patient the finding on ultrasound showing 2 myomas, will proceed with a workup for AUB and discuss myomas and options of treatment (2) Abnormal uterine bleeding (AUB): Code(s): N93.9 - Abnormal uterine and vaginal bleeding, unspecified Category: Medical Plan: Co testing done, GC and chlamydia taken CBC, TSH, FSH/LH, HCG ordered. Discussed with the patient the different causes of abnormal bleeding including thyroid disorders, uterine and ovarian pathology, endometrial hyperplasia, carcinoma and other potential causes. Discussed with the patient the work up including CBC (to r/o anemia), TSH, FSH/LH, pelvic Ultrasound, endometrial biopsy to r/o endometrial pathology. All questions answered and the patient verbalized understanding. Instructed the patient to schedule an appointment for an endometrial biopsy in 2 weeks. Orders: Orders HCG Quantitative Today N93.9 - Abnormal uterine and vaginal bleeding, unspecified Follicle Stimulating Hormone Today N93.9 - Abnormal uterine and vaginal bleeding, unspecified Lutenizing Hormone Today N93.9 - Abnormal uterine and vaginal bleeding, unspecified Complete Blood Count no Diff Today N93.9 - Abnormal uterine and vaginal bleeding, unspecified TSH reflex Free T4 Today N93.9 - Abnormal uterine and vaginal bleeding, unspecified Coding Level of Care Code New Pt Level 3 (84088) Diagnoses Uterine fibroid D25.9 Abnormal uterine bleeding (AUB) N93.9
[2024-05-05 10:31] VITALS: BP 110/74; BMI 30.1
== END 2024-05-05 11:14 | disposition home or self-care (01) ==
PROVIDERS: PCP Internal Medicine; Visit Provider Obstetrics & Gynecology
DX: D25.9 Leiomyoma of uterus, unspecified (principal); N93.9 Abnormal uterine and vaginal bleeding, unspecified
CPT/HCPCS: 99203

== ENCOUNTER 2024-05-05 11:01 | Outpatient (REF) | payer MEDICAID, SELFPAY ==
--- OUTSIDE RECORDS SUMMARY | 2024-05-05 12:53 | XMS_ITS | Encounter Summary ---
Author Organization [employer] Address [address] [facility] 7t [place] [address] Care Team Providers Care Air Conditioning Installer Supervisor Name Role Phone Marian Crook MD Primary Care Provider + Encounter Details Date Type Department Care Team (Late st Contact Info) Description 05/05/2024 Orders Only GENERIC EXTERNAL DATA [...] Description 07/02/2024 11:45 AM EDT Office Visit [facility] MEDICINE [address] [place] [address] Marian Crook MD [address] [place] [address] documented as of this encounter Procedures Procedure Name Priority Date/Time Associated Diagnosis Comments CBC Routine 05/05/2024 11:23 AM EST documented in this encounter Results * (ABNORMAL) CBC (05/05/2024 11:23 AM EST) White Blood Count 5.5 4.8 - 10.8 X10*3/uL [facility] Red Blood Count 3.92(L) 4.20 - 5.50 X10*6/uL [facility] Hemoglobin 12.0 12.0 - 16.0 g/dl [facility] Hematocrit 36.3(L) 37.0 - 47.0 % [facility] Mean Corpuscular Volume 92.6 80.0 - 98.0 fL [facility] Mean Corpuscular Hemoglobin 30.6 27.0 - 33.0 pg [facility] Mean Corpuscular HGB Conc 33.1 31.0 - 35.0 g/dl [facility] Red Cell Distribution Width 12.3 11.0 - 16.0 % [facility] Platelet Count 264 160 - 400 X10*3/uL [facility] Mean Platelet Volume 11.1 9.4 - 12.3 fL [facility] NRBC Pct Auto 0.0 0.0 - 0.2 /100WBC [facility] NRBC Abs Auto 0.000 0.0 - 0.012 X10*3/uL [facility] 05/05/2024 11:2 3 AM EST 05/05/2024 11:23 AM EST us Generic External Data Provider LAB BLOOD ORDERAB LES Final Result Performing Organization Address City/State/[facility] Co de Phone Number [facility] [address] [place] [address] [phone] documented in this encounter Visit Diagnoses Not on filedocumented in this encounter Additional Health Concerns Assessment Noted Time PHQ-9 Depression Total Score: 22 024 2:02 PM EDT documented as of this encounter Care Teams Air Conditioning Installer Supervisor Relationship Specialty Start Date End Date Marian Crook MD [address] [place] [address] PCP - General Internal Medicine 09/12/23 documented as of this encounter
== END 2024-05-05 11:02 | disposition home or self-care (01) ==
LOC: HO.LAB 11:01
PROVIDERS: PCP Internal Medicine; Visit Provider Obstetrics & Gynecology
DX: Z13.89 Encounter for screening for other disorder (principal)

== ENCOUNTER 2024-05-14 13:57 | Outpatient (AMB) | payer MEDICAID, SELFPAY ==
--- NOTE | 2024-05-14 14:06 | MHC.OFFVIS ---
Intake Visit Reasons: bilateral renal cysts Intake Note: Pt presents to office today for bilateral renal cysts Allergies No Known Allergies [No Known Allergies*] Allergy (Verified 05/14/24 14:18) PFSH Medical History delivery delivered Depression Anal fissure Hemorrhoids Chronic RLQ pain Polyuria Dizziness FILIBERTO (obstructive sleep apnea) Moderate persistent asthma in adult without complication Chronic low back pain Iron deficiency Arthritis History of asthma Surgical History S/P laparoscopic sleeve gastrectomy H/O abdominoplasty Family History Mother History of hypertension Arthritis Glaucoma Father Heart problem History of hypertension Brother Heart problem History of hypertension Sister History of hypertension Brother No problems noted. Brother No problems noted. Brother No problems noted. Brother No problems noted. Sister Ovarian cancer Sister No problems noted. Sister No problems noted. Social History Household Members: Spouse and Children Housing: House Alcohol intake: current Alcohol intake frequency: holidays/special occasions only Patient Tobacco Use Status: Never used Tobacco service: No Current occupational status: employed Female Reproductive History Menstrual Age of Menarche: 14 Office Procedures Post Void Residual Post Residual Void Post Void Residual (PVR): 0 [id number] Void Residual by ultrasound Results AMB Urinalysis, Automated UA Leukoctes 0 Kaylene/uL Last Edit by Denisa Connors on 05/14/24 14:29 UA Nitrite Negative Last Edit by Denisa Connors on 05/14/24 14:29 UA Urobilinogen 0.2 mg/dL Last Edit by Denisa Connors on 05/14/24 14:29 UA Protein 0 mg/dL Last Edit by Denisa Connors on 05/14/24 14:29 UA pH 6.0 Last Edit by Denisa Connors on 05/14/24 14:29 UA Blood 0 Eren/uL Last Edit by Denisa Connors on 05/14/24 14:29 UA Specific [place] 1.010 Last Edit by Denisa Connors on 05/14/24 14:29 UA Ketone Negative Last Edit by Denisa Connors on 05/14/24 14:29 UA Bilirubin 0 mg/dL Last Edit by Denisa Connors on 05/14/24 14:29 UA Glucose 0 mg/dL Last Edit by Denisa Connors on 05/14/24 14:29 Results Reviewed Results Reviewed: Laboratory Last Values Urine pH (Auto) 6.0 05/14/24 14:18 Specific [place] (Auto) 1.010 05/14/24 14:18 Urine Protein (Auto) 0 mg/dL 05/14/24 14:18 Glucose (UA)(Auto) 0 mg/dL 05/14/24 14:18 Urine Ketones (Auto) Negative 05/14/24 14:18 Urine Blood (Auto) 0 Eren/uL 05/14/24 14:18 Urine Nitrite (Auto) Negative 05/14/24 14:18 Urine Bilirubin (Auto) 0 mg/dL 05/14/24 14:18 Urine Urobilinogen (Auto) 0.2 mg/dL 05/14/24 14:18 Leukocyte Esterase (Auto) 0 Kaylene/uL 05/14/24 14:18 Assessment & Plan Assessment & Plan (1) Urinary frequency: Code(s): R35.0 - Frequency of micturition (2) Urinary urgency: Code(s): R39.15 - Urgency of urination Category: Medical Plan Two month follow-up nurse-practitioner Orders: Orders AMB Urinalysis Automated Today Z13.9 - Encounter for screening, unspecified AMB Post Void Residual by ultrasound Today R35.0 - Frequency of micturition Medications: New tadalafil [facility] DR33 [id number] 5 mg PO DAILY 90 tabs 0RF bladder instability 90 days R39.15 - Urgency of urination Patient Instructions: This note is constructed using voice recognition software. While every effort has been made to ensure accuracy panel flow machine operator errors may have been included. Imaging studies, laboratory and physical exam results were discussed and reviewed in detail. No major barriers to patient understanding were identified. An opportunity to ask questions regarding the treatment plan was provided. All questions were answered. The patient expressed understanding and agreement with the above treatment plan. The patient is aware they should contact our office by phone for worsening of their current condition or the appearance of new urologic symptoms. Compliance is encouraged with any medications and followup testing that is ordered. It is a privilege to participate in the urologic care of your patient. If you have any questions or concerns regarding treatment for the above conditions, or other urologic issues, please do not hesitate to contact me. The office telephone contact is [phone]. Sincerely, Dr Ld Morales MD, [facility] - Urology Compassionate Specialist Care for the Genitourinary System Coding Diagnoses Urinary frequency R35.0 Urinary urgency R39.15 CPT Codes Post Residual Void - PVR CPT Code: 82097-[id number] Void Residual by ultrasound ([id number])
--- OUTSIDE RECORDS SUMMARY | 2024-05-14 14:24 | XMS_ITS | Encounter Summary ---
Author Organization [employer] Address [address] [facility] 7t [place] [address] Care Team Providers Care Finish Production Manager Name Role Phone Marian Crook MD Primary Care Provider + Reason for Visit * Reason Onset Date Comments Med Refill 03/25/2024 Encounter Details Date Type Department Care Team (Late st Contact Info) Description 03/25/2024 Refill [facility] [address] [place] [address] Marian Crook MD [address] [place] [address] Social History Tobacco Use Types Packs/Day Years [...] Description 07/02/2024 11:45 AM EDT Office Visit [facility] [address] [place] [address] Marian Crook MD [address] [place] [address] documented as of this encounter Visit Diagnoses Not on filedocumented in this encounter Additional Health Concerns Assessment Noted Time PHQ-9 Depression Total Score: 22 024 2:02 PM EDT documented as of this encounter Care Teams Finish Production Manager Relationship Specialty Start Date End Date Marian Crook MD [address] [place] [address] PCP - General Internal Medicine 09/12/23 documented as of this encounter
--- OUTSIDE RECORDS SUMMARY | 2024-05-14 14:24 | XMS_ITS | Encounter Summary ---
Author Organization [employer] Address 75 [facility] 7t [place] [address] Care Team Providers Care Vacuum Cleaner Mechanic Name Role Phone Marian Crook MD Primary Care Provider + Reason for Visit * Reason Onset Date Comments Med Refill 03/25/2024 Encounter Details Date Type Department Care Team (Late st Contact Info) Description 03/25/[address] [facility] [address] [place] [address] Claritza Leonard DO [address] [place] [address] Social History Tobacco Use Types Packs/Day Years [...] 07/02/2024 11:45 AM EDT Office Visit [facility] [address] [place] [address] Marian Crook MD [address] [place] [address] documented as of this encounter Visit Diagnoses Not on filedocumented in this encounter Additional Health Concerns Assessment Noted Time PHQ-9 Depression Total Score: 22 024 2:02 PM EDT documented as of this encounter Care Teams Vacuum Cleaner Mechanic Relationship Specialty Start Date End Date Marian Crook MD [address] [place] [address] PCP - General Internal Medicine 09/12/23 documented as of this encounter
--- OUTSIDE RECORDS SUMMARY | 2024-05-14 14:24 | XMS_ITS | Encounter Summary ---
Author Organization [employer] Address 75 [facility] 7t [place] [address] Care Team Providers Care Senior Product Marketing Manager Name Role Phone Marian Crook MD Primary Care Provider + Reason for Visit * Reason Onset Date Comments Med Refill 03/25/2024 Encounter Details Date Type Department Care Team ([facility] st Contact Info) Description 03/25/2024 Refill [facility] [address] [place] [address] Marian Crook MD [address] [place] [address] Moderate persistent asthma without complication Social History [...] Description 07/02/2024 11:45 AM EDT Office Visit [facility] [address] [place] [address] Marian Crook MD [address] [place] [address] documented as of this encounter Visit Diagnoses Diagnosis Moderate persistent asthma without complication documented in this encounter Additional Health Concerns Assessment Noted Time PHQ-9 Depression Total Score: 22 024 2:02 PM EDT documented as of this encounter Care Teams Senior Product Marketing Manager Relationship Specialty Start Date End Date Marian Crook MD [address] [place] [address] PCP - General Internal Medicine 09/12/23 documented as of this encounter
--- OUTSIDE RECORDS SUMMARY | 2024-05-14 14:24 | XMS_ITS | Encounter Summary ---
Author Organization [employer] Address 75 [facility] 7t [place] [address] Care Team Providers Care Science Technician Name Role Phone Marian Crook MD Primary Care Provider + Reason for Visit * Reason Onset Date Comments Med Refill 03/25/2024 Encounter Details Date Type Department Care Team (Late st Contact Info) Description 03/25/2024 Refill [facility] [address] [place] [address] Claritza Leonard DO [address] [place] [address] Social History Tobacco Use Types Packs/Day Years [...] Description 07/02/2024 11:45 AM EDT Office Visit [facility] [address] [place] [address] Marian Crook MD [address] [place] [address] documented as of this encounter Visit Diagnoses Not on filedocumented in this encounter Additional Health Concerns Assessment Noted Time PHQ-9 Depression Total Score: 22 024 2:02 PM EDT documented as of this encounter Care Teams Science Technician Relationship Specialty Start Date End Date Marian Crook MD [address] [place] [address] PCP - General Internal Medicine 09/12/23 documented as of this encounter
--- OUTSIDE RECORDS SUMMARY | 2024-05-14 14:25 | XMS_ITS | Encounter Summary ---
Author Organization [employer] Address [address] [facility] 7t [place] [address] Care Team Providers Care Favor Maker Name Role Phone Marian Crook MD [...] Description 07/02/2024 11:45 AM EDT Office Visit [facility] [address] [place] [address] Marian Crook MD [address] [place] [address] documented as of this encounter Procedures Procedure Name Priority Date/Time Associated Diagnosis Comments URINALYSIS, COMPLETE, WITH REFLEX TO CULTURE Routine 04/27/2024 12:31 AM EST documented in this encounter Results * (ABNORMAL) Urinalysis, Complete, with Reflex to Culture (04/27/2024 12:31 AM EST) Color Urine Yellow [facility] Appearance Urine Clear [facility] PH 5.5 5.0 - 9.0 [facility] Glucose Urine UA Negative Negative mg/dL [facility] Urine Blood Moderate (2+)(A) Negative [facility] Specific [place] - Urine 1.020 1.005 - 1.025 [facility] Urine Protein Negative Neg-Trace mg/dL [facility] Urine Ketones Negative Negative mg/dL [facility] Nitrite Urine Negative Negative [facility] Leukocyte Esterase Urine Negative Negative [facility] RBC Urine >20(A) 0 - 2 /HPF [facility] Urine WBC 0-5 0 - 5 /HPF [facility] Urine Squamous Epithelial Cell 0-2 0 - 2 /HPF [facility] Urine Bacteria None Seen None Seen [facility] Hyaline Casts, Urine 0-2 0 - 2 /LPF [facility] 04/27/2024 12:3 1 AM EST 04/27/2024 12:34 AM EST Narrative [facility] - 04/27/2024 12:42 AM EST Urine, Clean Catch us Generic External Data Provider LAB URINE ORDERAB LES Final Result Performing Organization Address City/State/[facility] Co de Phone Number [facility] [address] [place] [address] [phone] documented in this encounter Visit Diagnoses Not on filedocumented in this encounter Additional Health Concerns Assessment Noted Time PHQ-9 Depression Total Score: 22 024 2:02 PM EDT documented as of this encounter Care Teams Favor Maker Relationship Specialty Start Date End Date Marian Crook MD [address] [place] [phone] PCP - General Internal Medicine 09/12/23 documented as of this encounter
--- OUTSIDE RECORDS SUMMARY | 2024-05-14 14:25 | XMS_ITS | Encounter Summary ---
Author Organization [employer] Address 75 [facility] 7t [place] [address] Care Team Providers Care Vineyard Worker Name Role Phone Marian Crook MD Primary Care Provider + Reason for Referral * Consultation (Urgent) - Authorized Specialty Diagnoses / Procedures Referred By Lien barragan Referred To Contact Urology Diagnoses Bilateral renal cysts Claritza Leonard DO [address] [place] [address] Phone: tel: fax: [facility] [address] [place], [place] Phone: tel: fax: Referral ID Status Reason Start Date Expiration Date Visits Requested Visits Authorized [id number] Authorized Specialty Services Required 04/29/2024 04/29/2025 6 6 * Consultation (STAT) - Closed Specialty Diagnoses / Procedures Referred By Lien barragan Referred To Contact Obstetrics and Gynecology Diagnoses Uterine leiomyoma, unspecified location Excessive bleeding in premenopausal period Claritza Leonard DO [address] [place] [address] Phone: tel: fax: [facility] [address] 5[address] Floor [address] (Main Hospital Entrance) [place], [place] Phone: tel: fax: Referral ID Status Reason Start Date Expiration Date V isits Requested Visits Authorized [id number] Closed Specialty Services Required 04/29/2024 04/29/2025 9 9 Encounter Details Date Type Department Care Team (Late st Contact Info) Description 04/29/2024 Orders Only [facility] [address] [place] [address] Claritza Leonard DO [address] [place] [address] Bilateral renal cysts (Primary Dx); Uterine leiomyoma, [...] Leonard DO - 04/29/2024 11:50 AM EST [employer] and Urology referrals placed. documented in this encounter Plan of Treatment Upcoming Encounters Date Type Department Care Team (Late st Contact Info) Description 07/02/2024 11:45 AM EDT Office Visit [facility] [address] [place] [address] Marian Crook MD [address] [place] [address] Scheduled Referrals Name Type Priority Associated Diagnoses [...] documented as of this encounter Care Teams Vineyard Worker Relationship Specialty Start Date End Date Marian Crook MD [address] [place] [address] PCP - General Internal Medicine 09/12/23 documented as of this encounter
--- OUTSIDE RECORDS SUMMARY | 2024-05-14 14:25 | XMS_ITS | Encounter Summary ---
Author Organization [employer] Address 75 [facility] 7t [place] [address] Care Team Providers Care Principal Planner Name Role Phone Marian Crook MD Primary Care Provider + Reason for Visit * Reason Comments Med Refill Encounter Details Date Type Department Care Team ([facility] st Contact Info) Description 05/07/2024 Refill [facility] [address] [place], [place] [phone] Marian Crook MD [address] [place], [place] [phone] Social History Tobacco Use Types Packs/Day Years [...] Description 07/02/2024 11:45 AM EDT Office Visit [facility] [address] [place] [address] Marian Crook MD [address] [place] [address] documented as of this encounter Visit Diagnoses Not on filedocumented in this encounter Additional Health Concerns Assessment Noted Time PHQ-9 Depression Total Score: 22 024 2:02 PM EDT documented as of this encounter Care Teams Principal Planner Relationship Specialty Start Date End Date Marian Crook MD [address] [place] [phone] PCP - General Internal Medicine 09/12/23 documented as of this encounter
--- OUTSIDE RECORDS SUMMARY | 2024-05-14 14:25 | XMS_ITS | Encounter Summary ---
Author Organization [facility] Address [address] [place] [address] 7 [place] [address] Care Team Providers Care Screed Person Name Role Phone Marian Crook MD Primary Care Provider + Reason for Visit * Reason Comments Med Refill Encounter Details Date Type Department Care Team (Late Contact Info) Description 11/27/2023 Refill [facility] [address] [place] [phone] Marian Crook MD [address] [place], [place] [phone] Social History Tobacco Use Types Packs/Day Years [...] 11:45 AM EDT Office Visit [facility] [address] [place] [phone] Marian Corok MD [address] [place], [place] [phone] documented as of this encounter Visit Diagnoses Not on filedocumented in this encounter Additional Health Concerns Assessment Noted Time PHQ-9 Depression Total Score: 16 023 3:25 PM EDT documented as of this encounter Care Teams Screed Person Relationship Specialty Start Date End Date Marian Crook MD [address] [place] [address] PCP - General Internal Medicine 09/12/23 documented as of this encounter
--- OUTSIDE RECORDS SUMMARY | 2024-05-14 14:25 | XMS_ITS | Encounter Summary ---
Author Organization [employer] Address [address] [facility] 7t [place] [address] Care Team Providers Care Accreditation Coordinator Name Role Phone Marian Crook MD Primary Care Provider + Reason for Visit * Reason Onset Date Comments Nurse Triage 04/29/2024 Encounter Details Date Type Department Care Team ([facility] st Contact Info) Description 04/29/2024 Telephone [facility] [address] [place], [place] [phone] Marian Crook MD [address] [place] [address] Nurse Triage Social History Tobacco Use Types [...] the past 12 months, has t he [facility], gas, oil or water CC video threatened to shut off services in your [...] PM EST TC placed to patient to [phone] in regards to below message. Patient informed Dr. Leonard has placed STAT referral to [facility] and urgent referral to urologist. Patient advised if she does not receive a call or a letter regarding [facility] referral within a week to return call to [facility] for status. Patient verbalized understanding. Patient to f/u PRN. * Telephone Encounter - Jocelyne Carey RN - 04/29/2024 10:14 AM EST Call returned to Corina James to triage below. Reports seen at [facility] for vaginal bleeding. Per pt confirms that had BW and urine analysis. Per pt did not have a vaginal exam or US. Per pt wassupposed to have [facility] referral. Pt reports having vaginal bleeding x [...] to ER as instructed by Team nurse client relation specialist form 04/27 and nothing was done for patient. Patient wants to be referred to [facility]. See that request was sent to [...] Reason: Other Override Notes: Already seen at [facility] for abnormal bleeding onset after Transvaginal US plan is [facility] referral per notes in chart. 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) documented in this encounter Plan of Treatment Upcoming Encounters Date Type Department Care Team (Late st Contact Info) Description 07/02/2024 11:45 AM EDT Office Visit [facility] [address] [place] [address] Marian Crook MD [address] [place], [place] [phone] documented as of this encounter Visit Diagnoses Not on filedocumented in this encounter Additional Health Concerns Assessment Noted Time PHQ-9 Depression Total Score: 22 024 2:02 PM EDT documented as of this encounter Care Teams Accreditation Coordinator Relationship Specialty Start Date End Date Marian Crook MD [address] [place] [phone] PCP - General Internal Medicine 09/12/23 documented as of this encounter
--- OUTSIDE RECORDS SUMMARY | 2024-05-14 14:25 | XMS_ITS | Encounter Summary ---
Author Organization [employer] [facility] Address [address] [place] [address] 7 [place] [address] Care Team Providers Care Relationship Mgr Name Role Phone [facility] Primary Care Provider [phone] Marian Crook MD Primary Care Provider + Encounter Details Date Type Department Care Team (Late st Contact Info) Description 04/03/2023 Abstract [facility] [address] [place] [address] [facility] [address] [place] [address] Social History Tobacco Use Types Packs/Day Years [...] Description 07/02/2024 11:45 AM EDT Office Visit [facility] [address] [place] [address] [phone] Marian Crook MD [address] [place], [place] [phone] documented as of this encounter Visit Diagnoses Not on filedocumented in this encounter Additional Health Concerns Assessment Noted Time PHQ-9 Depression Total Score: 16 023 3:25 PM EDT documented as of this encounter Care Teams Relationship Mgr Relationship Specialty Start Date End Date Miladys RACQUEL Brito [address] [place] [address] PCP - General Family Medicine 11/14/21 09/11/23 Marian Crook MD [address] [place] [address] PCP - General Internal Medicine 09/12/23 documented as of this encounter
--- OUTSIDE RECORDS SUMMARY | 2024-05-14 14:25 | XMS_ITS | Encounter Summary ---
Author Organization [employer] Address [address] [facility] [address]t [place] [address] Care Team Providers Care Battery Engineer Name Role Phone Marian Crook MD [...] 07/02/2024 11:45 AM EDT Office Visit [facility] MEDICINE [address] [place], [place] [phone] Marian Crook MD [address] [place] [address] documented as of this encounter Procedures Procedure [...] Thromboplastin Time 31.7 26.0 - 36.8 SEC [facility] Comment:For information rega rding the monitoring of direct thrombininhibitors, please refer to Pharmacy. 04/26/2024 4:47 PM EST 04/26/2024 4:50 PM EST us Generic External Data Provider LAB BLOOD ORDERAB LES Final Result Performing Organization Address [facility]/ZIP Co de Phone Number [facility] [address] [place] [phone] * Prothrombin Time-INR (04/26/2024 4:47 PM EST) Prothrombin Time 12.0 10.9 - 12.4 SEC [facility] INTERNATIONAL NORM RATIO 1.0 0.9 - 1.1 [facility] Comment:INTERNATIONAL NORMAL IZED RATIO (INR) [...] ORDERAB LES Final Result Performing Organization Address [facility] Co de Phone Number [facility] [address] [place] [phone] * Magnesium (04/26/2024 4:47 PM EST) Magnesium 1.9 1.6 - 2.6 mg/dL [facility] 04/26/2024 4:47 PM EST 04/26/2024 4:50 PM EST us Generic External Data Provider LAB BLOOD ORDERAB LES Final Result Performing Organization Address City/[facility] Co de Phone Number [facility] [address] [place] [address] [phone] * (ABNORMAL) Comprehensive Metabolic Panel (04/26/2024 4:47 PM EST) Sodium 140 135 - 145 mmol/L [facility] Potassium 4.1 3.3 - 5.1 mmol/L [facility] Chloride 108 96 - 108 mmol/L [facility] Carbon Dioxide 28 22 - 29 mmol/L [facility] Anion Gap 8(L) 12 - 20 [facility] Urea Nitrogen (BUN) 17(H) 9 - 16 mg/dL [facility] Creatinine, Serum 0.78 0.5 - 1.4 mg/dL [facility] Creatinine Clr Calc Pharmacy 84.2 [facility] Comment:Provided height and weight: 157.48 cm,77.8 kg.eGFR (calculated from the MDRD study equation) and eCrCl(calculated from the Cockcroft-Gault equation) are based ondifferent parameters and may not yield comparable results.If eCrCl result is absurd, please check patient'sheight/weight. Estimated Glomerular Filt Rate >60 [facility] Comment:Chronic Kidney Disea se: Estimated GFR < 60 mL/min/[id number] Kidney Disease: Estimated GFR < 15 mL/min/1.73m2 Glucose 80 60 - 115 mg/dL [facility] Calcium 9.0 8.4 - 10.2 mg/dL [facility] Bilirubin, Total 0.3 0.0 - 1.0 mg/dL [facility] Aspartate Amino Transferase 21 5 - 31 U/L [facility] Alanine Aminotransferase 14 0 - 31 U/L [facility] Total Protein 7.6 6.5 - 8.0 g/dL [facility] Albumin Level 4.1 3.5 - 5.0 g/dL [facility] Alkaline Phosphatase 72 39 - 117 U/L [facility] 04/26/2024 4:47 PM EST 04/26/2024 4:50 PM EST us Generic External Data Provider LAB BLOOD ORDERAB LES Final Result [facility] [address] [place], [place] [phone] * (ABNORMAL) CBC auto differential (04/26/2024 4:47 PM EST) White Blood Count 6.0 4.8 - 10.8 X10*3/uL [facility] Red Blood Count 4.05(L) 4.20 - 5.50 X10*6/uL [facility] Hemoglobin 12.4 12.0 - 16.0 g/dl [facility] Hematocrit 37.7 37.0 - 47.0 % [facility] Mean Corpuscular Volume 93.1 80.0 - 98.0 fL [facility] Mean Corpuscular Hemoglobin 30.6 27.0 - 33.0 pg [facility] Mean Corpuscular HGB Conc 32.9 31.0 - 35.0 g/dl [facility] Red Cell Distribution Width 12.3 11.0 - 16.0 % [facility] Platelet Count 269 160 - 400 X10*3/uL [facility] Mean Platelet Volume 10.9 9.4 - 12.3 fL [facility] Neutrophils Percent Auto 55.1 45 - 73 % [facility] Imm Gran Pct Auto 0.0 0.0 - 0.4 % [facility] Lymphocytes Percent Auto 29.4 20 - 40 % [facility] Monocytes Percent Auto 10.6 2 - 11 % [facility] Eosinophils Percent Auto 3.9 0 - 4 % [facility] Basophils Percent Auto 1.0 0 - 2 % [facility] NRBC Pct Auto 0.0 0.0 - 0.2 /100WBC [facility] Neutrophils Absolute Auto 3.3 2.0 - 8.3 x10*3/uL [facility] Imm Gran Abs Auto 0.00 0.00 - 0.03 X10*3/uL [facility] Lymphocytes Absolute Auto 1.8 1.2 - 4.9 X10*3/uL [facility] Monocytes Absolute Auto 0.6 0.1 - 1.2 X10*3/uL [facility] Eosinophils Absolute Auto 0.2 0.0 - 0.4 X10*3/uL [facility] Basophils Absolute Auto 0.1 0.0 - 0.2 X10*3/uL [facility] NRBC Abs Auto 0.000 0.0 - 0.012 X10*3/uL [facility] 04/26/2024 4:47 PM EST 04/26/2024 4:50 PM EST us Generic External Data Provider LAB BLOOD ORDERAB LES Final Result Performing Organization Address City/State/[facility] Co de Phone Number [facility] [address] [place] [phone] documented in this encounter Visit Diagnoses Not on filedocumented in this encounter Additional Health Concerns Assessment Noted Time PHQ-9 Depression Total Score: 22 024 2:02 PM EDT documented as of this encounter Care Teams Battery Engineer Relationship Specialty Start Date End Date Marian Crook MD [address] [place] [phone] PCP - General Internal Medicine 09/12/23 documented as of this encounter
--- OUTSIDE RECORDS SUMMARY | 2024-05-14 14:25 | XMS_ITS | Encounter Summary ---
Author Organization [employer] Address [address] [facility] [address] [place] [address] Care Team Providers Care Wood Finisher Name Role Phone Marian Crook MD Primary Care Provider + Reason for Visit * Reason Onset Date Comments June04/23/2024 Encounter Details Date Type Department Care Team ([facility] st Contact Info) Description 04/23/2024 Telephone [facility] MEDICINE [address] [place], [place] [phone] Marian Crook MD [address] [place], [place] [phone] June Social History Tobacco Use Types Packs/Day [...] Description 07/02/2024 11:45 AM EDT Office Visit [facility] MED[facility] [address] [place] [address] Marian Crook MD [address] [place] [address] documented as of this encounter Visit Diagnoses Not on filedocumented in this encounter Additional Health Concerns Assessment Noted Time PHQ-9 Depression Total Score: 22 024 2:02 PM EDT documented as of this encounter Care Teams Wood Finisher Relationship Specialty Start Date End Date Marian Crook MD [address] [place] [phone] PCP - General Internal Medicine 09/12/23 documented as of this encounter
--- OUTSIDE RECORDS SUMMARY | 2024-05-14 14:25 | XMS_ITS | Encounter Summary ---
Author Organization [employer] Address [address] [facility] 7t [place] [address] Care Team Providers Care Network Systems Analyst Name Role Phone Marian Crook MD Primary Care Provider + Reason for Visit * Reason Onset Date Comments Med Refill 05/13/2024 Encounter Details Date Type Department Care Team ([facility] st Contact Info) Description 05/13/2024 Refill [facility] MEDICINE [address] [place] [address] Marian Crook MD [address] [place] [address] Moderate persistent asthma without complication Social History [...] Office Visit [facility] MEDICINE [address] [place] [phone] Marian Crook MD [address] [place] [address] documented as of this encounter Visit Diagnoses Diagnosis Moderate persistent asthma without complication documented in this encounter Additional Health Concerns Assessment Noted Time PHQ-9 Depression Total Score: 22 024 2:02 PM EDT documented as of this encounter Care Teams Network Systems Analyst Relationship Specialty Start Date End Date Marian Crook MD [address] [place] [phone] PCP - General Internal Medicine 09/12/23 documented as of this encounter
--- OUTSIDE RECORDS SUMMARY | 2024-05-14 14:25 | XMS_ITS | Encounter Summary ---
Author Organization [employer] Address [address] [place] [address] 7t [place] [address] Care Team Providers Care Supervisor Cell Maintenance Name Role Phone [facility] Primary Care Provider [phone] Marian Crook MD Primary Care Provider + Reason for Visit * Reason Onset Date Comments Nurse Triage 11/18/2022 Encounter Details Date Type Department Care Team (Late st Contact Info) Description 11/18/2022 Telephone [facility] MEDICINE [address] [place] [address] [facility] [address] [place] [address] Nurse Triage Social History Tobacco Use Types [...] other serious symptoms * Telephone Encounter - Anusah Harper - 11/18/2022 11:56 AM EDT Symptom: [...] Office Visit [facility] MEDICINE [address] [place] [address] Marian Crook MD [address] [place] [address] documented as of this encounter Visit Diagnoses Not on filedocumented in this encounter Additional Health Concerns Assessment Noted Time PHQ-9 Depression Total Score: 16 06/18/ 023 3:25 PM EDT documented as of this encounter Care Teams Supervisor Cell Maintenance Relationship Specialty Start Date End Date Alisha Hook FNP [address] [place] [phone] PCP - General Family Medicine 11/14/21 09/11/23 Marian Crook MD [address] [place] [address] PCP - General Internal Medicine 09/12/23 documented as of this encounter
--- OUTSIDE RECORDS SUMMARY | 2024-05-14 14:25 | XMS_ITS | Encounter Summary ---
Author Organization [employer] Address [address] [facility] 7t [place] [address] Care Team Providers Care Ski Lift Mechanic Name Role Phone Marian Crook MD Primary Care Provider + Reason for Visit * Reason Onset Date Comments Results 04/26/2024 Encounter Details Date Type Department Care Team ([facility] st Contact Info) Description 04/26/[address] [facility] MEDICINE [address] [place], [place] [phone] Lina Yarbrough RN [address] [place] [address] Results Social History Tobacco Use Types Packs/Day [...] Miscellaneous Notes * Telephone Encounter - Lina Yarrbough RN - 04/26/2024 3:20 PM EST TC placed to patient [phone] to inform of below results. Patient verbalized understanding and is aware of referral to urology. Patient is also symptomatic r/t uterine fibroids and wants referralto SITE PROMOTION AGENT. RN advised patient, Dr. Leonard will place referral to urology and SITE PROMOTION AGENT and patient will receive a TC or [...] understanding and reports she will go to [facility] now. Patient advised to call [facility] once discharged for ED f/u appointment. Patient to f/u PRN. * Telephone Encounter - Paulino Arizmendi - 04/26/2024 2:51 PM EST Tc from pt returning call regarding prior message. Contact pt at [phone] * Telephone Encounter - Lina Yarbrough RN - 04/26/2024 9:04 AM EST TC placed to patient [phone] to inform of US results. Patients pelvic US confirmed uterine fibroids largest being 5cm and PCP will refer patient to [facility] PROMOTION AGENT if symptomatic heavy menstrual periods, pelvic pain, [...] [facility] [address] [place] [address] Marian Crook MD [address] [place] [address] documented as of this encounter Visit Diagnoses Not on filedocumented in this encounter Additional Health Concerns Assessment Noted Time PHQ-9 Depression Total Score: 22 024 2:02 PM EDT documented as of this encounter Care Teams Ski Lift Mechanic Relationship Specialty Start Date End Date Marian Crook MD [address] [place] [address] PCP - General Internal Medicine 09/12/23 documented as of this encounter
--- OUTSIDE RECORDS SUMMARY | 2024-05-14 14:25 | XMS_ITS | Clinical Summary ---
Author Organization [employer] Address [address] [facility] [address] [place] [address] Care Team Providers Care Entertainment Production Professional Name Role Phone Marian Crook MD Primary Care Provider + Allergies No known active allergies Medications Vaginal Lubricant (Replens) gelIndications: Vaginal dryness Insert 2 g into the vagina if needed (vaginal dryness). 35 g 1 12/07/19 23 Active Omeprazole 20 MG tablet delayed-release Indications:Lennox n of right hip Take 20 mg by mouth in the morning for 14 days. 14 tablet 02/29/20 23 Active nitroglycerin (Rectiv) 0.4 % (w/w) rectal ointmentIndicat ions:Anal fissure Insert 1 inch (1 Application. ) into the rectum every 12 (twelve) hours. 30 g 12/23/19 24 Active montelukast (Singulair) 10 MG tablet TAKE 1 TABLET BY MOUTH EVERY MORNING 90 tablet 1 01/12/20 24 Active venlafaxine XR (Effexor XR) 37.5 MG 24 hr capsuleIndicati ons:Hot flashes Take 1 capsule (37.5 mg) by mouth Once per day. Do not crush or chew. 30 capsule 11 01/12/20 24 025 Active acetaminophen (Tylenol 8 Hour) 650 MG [...] EVERY DAY 90 tablet 04/13/19 25 Active meloxicam (Mobic) 7.5 MG tablet TAKE 1 TABLET BY MOUTH EVERY DAY 30 tablet 05/07/19 25 Active albuterol 108 (90 Base) MCG/ACT inhalerIndicati ons:Moderate persistent asthma without complication Inhale 2 puffs every 6 (six) hours if needed for shortness of breath or wheezing. 18 g 3 05/13/19 25 Active albuterol 108 (90 Base) MCG/ACT inhalerIndicati ons:Moderate persistent asthma without complication Inhale 2 puffs every 6 (six) hours if needed for shortness of breath or wheezing. 18 g 3 01/12/20 24 025 Discontinued(Re order (will not trigger notification to Pharmacy)) meloxicam (Mobic) 7.5 MG tablet TAKE 1 TABLET BY MOUTH EVERY DAY 30 tablet 02/24/20 24 025 Discontinued Active Problems Problem Noted [...] (11/13/2023 10:30 AM EDT): Repeat order for Cologuard, pt did not send previous kit. Chronic [...] for this letter, she has appt with [facility] next week. I told her to reach out to legal aide to help her write a letter so that housing give her some more time to get the letter from MH provider. She will res tart Effexor for anxiety and fu with me in 6m Encounters Date Type Department Care Team Description 05/13/2024 Refill [facility] [address] [place] [address] Marian Crook MD Moderate persistent asthma without complication 05/07/2024 Refill [facility] [address] [place] [address] Marian Crook MD 05/05/2024 Orders Only GENERIC EXTERNAL DATA DEPARTMENT Provider, Generic External Data 04/29/2024 Orders Only [facility] [address] [place] [address] Claritza Leonard DO Bilateral renal cysts (Primary Dx); Uterine leiomyoma, unspecified location; Excessive bleeding in premenopausal period 04/29/2024 Telephone [facility] [address] [facility] [place] [address] Marian Crook MD Nurse Triage 04/27/2024 Orders Only GENERIC EXTERNAL DATA DEPARTMENT Provider, Generic External Data 04/26/2024 Orders Only GENERIC EXTERNAL DATA DEPARTMENT Provider, Generic External Data 04/26/2024 Telephone [facility] [address] [place] [address] Lina Yarbrough, MOIRA Results 04/23/[address] [address] Marian Crook MD Tianna recall 04/13/2024 Refill [facility] [address] [place] [address] Marian Crook MD 04/09/2024 Orders Only [facility] [address] [place] [address] Claritza Leonard DO Abnormal MRI, lumbar spine (Primary Dx) 03/30/[address] [address] Marian Crook MD Results 03/30/2024 Telephone [facility] [address] [place] [phone] Marian Crook MD Stable Imaging Letter 03/30/[address] [address] Marian Crook MD Call Back Requested 03/27/2024 Orders Only GENERIC EXTERNAL DATA DEPARTMENT Provider, Generic External Data 03/26/2024 Orders Only [facility] External Provider, [facility] 03/25/2024 Refill [facility] [address] [place] [address] Marian Crook MD Moderate persistent asthma without complication 03/25/2024 Refill [facility] [address] [place] [address] Marian Crook MD 03/25/2024 Refill [facility] [place] [address] Claritza Leonard, DO 03/25/2024 Refill [facility] [address] [facility] [place] [address] Claritza Leonard, DO 03/22/2024 Telephone [facility] [address] [facility] [place] [address] Claritza Leonard, DO 03/19/2024 Telephone [facility] [address] [facility] [place] [address] Marian Crook MD Results 03/05/2024 Refill [facility] [address] [facility] [place] [address] Claritza Leonard, DO 03/01/2024 Telephone [facility] [address] [facility] [place] [address] Marian Crook MD Nurse Triage 02/26/2024 12:00 PM EST Office Visit [facility] [address] [facility] [place] [address] Claritza Leonard, DO Folliculitis (Primary Dx); Chronic bilateral low back pain with left-sided sciatica 02/26/2024 Travel 02/26/2024 Telephone [facility] [address] [facility] [place] [address] Marian Crook MD Nurse Triage 02/24/2024 Refill [facility] [address] [place] [address] Marian Crook MD from Last 3 Months [...] 07/02/2024 11:45 AM EDT Office Visit [facility] [address] [place] [address] Marian Crook MD [address] [place] [address] Health Maintenance Due Date Last Done Comments [...] 01/12/2024 Zoster Vaccines (1 of 2) 2025 Colorectal Cancer Screening 02/01/2027 FIT DNA/Cologuard 02/01/2027 02/02/2024 Cervical Cancer Screening 05/05/2029 HPV/Cotest 05/05/2029 05/05/2024, 06/06/2020 Pap Smear 05/05/2029 05/05/2024, 06/06/2020 DTaP/Tdap/Td Vaccines (3 - Td or Tdap) [...] Procedure Name Priority Date/Time Associated Diagnosis Comments LH Routine 05/05/2024 11:23 AM EST FSH Routine 05/05/2024 11:23 AM EST HCG, TOTAL, QN Routine 05/05/2024 11:23 AM EST TSH W/REFLEX TO FT4 Routine 05/05/2024 1 1:23 AM EST CBC Routine 05/05/2024 11:23 AM EST CHLAMYDIA/N. GONORRHOEAE RNA, TMA, UROGENITAL Routine 05/05/2024 11:19 AM EST PAP SMEAR Routine 05/05/2024 10:22 AM EST HPV DNA, LOW/HIGH RISK Routine 10:22 AM EST URINALYSIS, COMPLETE, WITH REFLEX TO [...] PM EDT Screening mammogram for breast cancer from Last 3 Months or Most Recently Relevant to Health Maintenance Results * TSH with Reflex to Free T4 (05/05/2024 11:23 AM EST) Only the most recent of2 resultswithin the time period is included. TSH reflex Free T4 0.78 0.32 - 4.0 uIU/mL [facility] 05/05/2024 11:2 3 AM EST 05/05/2024 11:23 AM EST us Generic External Data Provider LAB BLOOD ORDERAB LES Final Result Performing Organization Address City/[facility]/ZIP Co de Phone Number [facility] [address] [place] [phone] * (ABNORMAL) CBC (05/05/2024 11:23 AM EST) Pathologist [facility] White Blood Count 5.5 4.8 - 10.8 X10*3/uL [facility] Red Blood Count 3.92(L) 4.20 - 5.50 X10*6/uL [facility] Hemoglobin 12.0 12.0 - 16.0 g/dl [facility] Hematocrit 36.3(L) 37.0 - 47.0 % [facility] Mean Corpuscular Volume 92.6 80.0 - 98.0 fL [facility] Mean Corpuscular Hemoglobin 30.6 27.0 - 33.0 pg [facility] Mean Corpuscular HGB Conc 33.1 31.0 - 35.0 g/dl [facility] Red Cell Distribution Width 12.3 11.0 - 16.0 % [facility] Platelet Count 264 160 - 400 X10*3/uL [facility] Mean Platelet Volume 11.1 9.4 - 12.3 fL [facility] NRBC Pct Auto 0.0 0.0 - 0.2 /100WBC [facility] NRBC Abs Auto 0.000 0.0 - 0.012 X10*3/uL [facility] 05/05/2024 11:2 3 AM EST 05/05/2024 11:23 AM EST us Generic External Data Provider LAB BLOOD ORDERAB LES Final Result [facility] [address] [place] [address] [phone] * hCG, Total, Quantitative (05/05/2024 11:23 AM EST) HCG Quantitative <2 mIU/mL [facility] Comment:Weeks post LMP Appro ximate hCG(Last Menstrual Period) Range (mIU/ml)3 - 4 weeks 9 - 1304 - 5 weeks 75 - 2,6005 - 6 weeks 850 - 20,8006 - 7 weeks 4000 - 100,2007 - 12 weeks 11,500 - 289,36906 - 16 weeks 18,300 - 137,23089 - 29 weeks (2nd trimester) 1,400 - 53,55989 - 41 weeks (3rd trimester) 940 - 60,000The Thomason B- hCG assay is used for the early detection ofpregnancy; it cannot be used to diagnose any conditionunrelated to . If a B-hCG level is not supportedby the clinical evidence, results should be confirmed by analternative method (qualitative urine hCG, for example). 05/05/2024 11:2 3 AM EST 05/05/2024 11:23 AM EST us Generic External Data Provider LAB BLOOD ORDERAB LES Final Result [facility] [address] [place] [address] [phone] * LH (05/05/2024 11:23 AM EST) Lutenizing Hormone 7.8 mIU/mL [facility] Comment:Reference Range Foll icular Phase 1.9-12.5 Mid-Cycle Peak 8.7-76.3 Luteal Phase 0.5-16.9 Postmenopausal 10.0-54.7THIS TEST WAS PERFORMED AT:[employer] [place] [phone] OLIVAS MD 05/05/2024 11:2 3 AM EST 05/05/2024 11:23 AM EST Generic External Data Provider LAB BLOOD ORDERAB LES Final Result Performing Organization Address [facility]/RUST Co de Phone Number [facility] [address] [place] [phone] * FSH (05/05/2024 11:23 AM EST) Pathologist [facility] Follicle Stimulating Hormone 14.4 mIU/mL [facility] Comment:Reference Range Foll icular Phase 2.5-10.2 Mid-cycle Peak 3.1-17.7 Luteal Phase 1.5- 9.1 Postmenopausal 23.0-116.3THIS TEST WAS PERFORMED AT:[employer] [place] [phone] OLIVAS MD 05/05/2024 11:2 3 AM EST 05/05/2024 11:23 AM EST Generic External Data Provider LAB BLOOD ORDERAB LES Final Result Performing Organization Address [facility]/[employer]UST Co de Phone Number [facility] [address] [place] [phone] * Chlamydia/N. Gonorrhoeae RNA, TMA, Urogenitial (05/05/2024 11:19 AM EST) [facility] CT PCR NOT DETECTED Not Detect. [facility] Comment:A not detected test result does not exclude the possibilityof infection because test results can be affected byimproper specimen collection, concurrent antibiotic therapy,or the number of organisms in the specimen which may bebelow the sensitivity of the test. As with many diagnostictests, results from the Xpert CT/NG assay should beinterpreted in conjunction with other laboratory andclinical data available to the clinician.Xpert CT/NG performance has not been evaluated in patientsless than 14 years of age. The assay should not be used forthe evaluationof suspected sexual abuse or for other medico-legalindications. Additional testing is recommended in anycircumstance when false positive or false negative resultscould lead to adverse medical, social or psychologicalconsequences. NG PCR NOT DETECTED Not Detect. [facility] Comment:A not detected test result does not exclude the possibilityof infection because test results can be affected byimproper specimen collection, concurrent antibiotic therapy,or the number of organisms in the specimen which may bebelow the sensitivity of the test. As with many diagnostictests, results from the Xpert CT/NG assay should beinterpreted in conjunction with other laboratory andclinical data available to the clinician.Xpert CT/NG performance has not been evaluated in patientsless than 14 years of age. The assay should not be used forthe evaluationof suspected sexual abuse or for other medico-legalindications. Additional testing is recommended in anycircumstance when false positive or false negative resultscould lead to adverse medical, social or psychologicalconsequences. 05/05/2024 11:1 9 AM EST 05/05/2024 11:56 AM EST Narrative [facility] - 05/06/2024 7:21 AM EST Vaginal us Generic External Data Provider LAB MICROBIOLOGY - GENERAL ORDERABLES Final Result [facility] [address] [place] [phone] * HPV DNA, Low/High Risk (05/05/2024 10:22 AM EST) HPV High Risk Negative Negative [facility] HPV Genotype 16 Negative Negative [facility] HPV Genotype 18 Negative Negative [facility] Comment:HPV testing performe d at [facility] (CLIA#[id number]), [address] [place] [address].Testing for HPV was performed using the Jon KALI 6800system. The presence of HPV in the female genital tract isassociated with a number of diseases, including cervicalcarcinoma. The HPV DNA high risk pool tests for HPV 31, 33,35, 39, 45, 51, 52, 56, 58, 59, 66 and 68. The testing forHPV 16 and 18 genotypes has also been performed. A positiveresult indicates detection of nucleic acid sequences fromone or more subtypes, whereas a negative result indicatessuch sequences were not detected. 05/05/2024 10:2 2 AM EST 05/06/2024 7:18 AM EST us Generic External Data Provider LAB BLOOD ORDERAB LES Final Result [facility] [address] [place] [phone] * Pap Smear (05/05/2024 10:22 AM EST) 05/05/2024 10:2 2 AM EST 05/06/2024 6:10 AM EST Narrative [facility] - 05/11/2024 9:16 AM EST ----- ------- Name: Corina Nielsen ?Age/Sex: 49/F ? : 1975 Unit#: [id number] ?? Attend Dr: Pj Posadas MD ?Re05/05/24 ?Status: DEP REF ? Location: HO.LNP ?Disch: ? ----- ------- SPEC : [id number] ? RECD: 05/06/24 ? STATUS: ??SOUT ? REQ NUM: [id number] ? LAURA: 05/05/24 ? SUBM DR: Pj Posadas MD ? ENTERED: ??05/06/24 ?SP TYPE: Pap Smr ?OTHR DR: Marian Crook MD ? ORDERED: ??Pap Smear ? Interpretation ?? Satisfactory for evaluation. ?? Negative for intraepithelial lesion or malignancy. ?? No endocervical cells seen. ? HPV High Risk: ??Negative ? HPV Genotyping 16: ??Negative ?? HPV Genotyping 18: ??Negative ?Clinical Information LMP: Previous PAP test: 5 years ago Other surgery: Other history: ? Material Received ?? ThinPrep-Cervical Copies To: ?? Marian Crook MD ?? [facility] ?? [address] [facility] ?? [place] [address] ?? [phone] ?? Pj Posadas MD ?? [facility] ?? [address] [facility] [address] ?? [place] [address] ?? [phone] ----- ------- Signed (signature on file) SCARLET Hernandez (ASCP) 05/11/24 0916 ? ----- ------- ? END OF REPORT ? us Generic External Data Provider LAB CYTOLOGY SHONA VIRAMONTES Final Result [facility] [address] [place] [address] [phone] * (ABNORMAL) Urinalysis, Complete, with Reflex to Culture (04/27/2024 12:31 AM EST) Color Urine Yellow [facility] Appearance Urine Clear [facility] PH 5.5 5.0 - 9.0 [facility] Glucose Urine UA Negative Negative mg/dL [facility] Urine Blood Moderate (2+)(A) Negative [facility] Specific Temple - Urine 1.020 1.005 - 1.025 [facility] Urine Protein Negative Neg-Trace mg/dL [facility] Urine Ketones Negative Negative mg/dL [facility] Nitrite Urine Negative Negative [facility] Leukocyte Esterase Urine Negative Negative [facility] RBC Urine >20(A) 0 - 2 /HPF [facility] Urine WBC 0-5 0 - 5 /HPF [facility] Urine Squamous Epithelial Cell 0-2 0 - 2 /HPF [facility] Urine Bacteria None Seen None Seen [facility] Hyaline Casts, Urine 0-2 0 - 2 /LPF [facility] 04/27/2024 12:3 1 AM EST 04/27/2024 12:34 AM EST Narrative [facility] - 04/27/2024 12:42 AM EST Urine, Clean Catch us Generic External Data Provider LAB URINE ORDERAB LES Final Result [facility] [address], [place] [phone] * (ABNORMAL) CBC auto differential (04/26/2024 4:47 PM EST) White Blood Count 6.0 4.8 - 10.8 X10*3/uL [facility] Red Blood Count 4.05(L) 4.20 - 5.50 X10*6/uL [facility] Hemoglobin 12.4 12.0 - 16.0 g/dl [facility] Hematocrit 37.7 37.0 - 47.0 % [facility] Mean Corpuscular Volume 93.1 80.0 - 98.0 fL [facility] Mean Corpuscular Hemoglobin 30.6 27.0 - 33.0 pg [facility] Mean Corpuscular HGB Conc 32.9 31.0 - 35.0 g/dl [facility] Red Cell Distribution Width 12.3 11.0 - 16.0 % [facility] Platelet Count 269 160 - 400 X10*3/uL [facility] Mean Platelet Volume 10.9 9.4 - 12.3 fL [facility] Neutrophils Percent Auto 55.1 45 - 73 % [facility] Imm Gran Pct Auto 0.0 0.0 - 0.4 % [facility] Lymphocytes Percent Auto 29.4 20 - 40 % [facility] Monocytes Percent Auto 10.6 2 - 11 % [facility] Eosinophils Percent Auto 3.9 0 - 4 % [facility] Basophils Percent Auto 1.0 0 - 2 % [facility] NRBC Pct Auto 0.0 0.0 - 0.2 /100WBC [facility] Neutrophils Absolute Auto 3.3 2.0 - 8.3 x10*3/uL [facility] Imm Gran Abs Auto 0.00 0.00 - 0.03 X10*3/uL [facility] Lymphocytes Absolute Auto 1.8 1.2 - 4.9 X10*3/uL [facility] Monocytes Absolute Auto 0.6 0.1 - 1.2 X10*3/uL [facility] Eosinophils Absolute Auto 0.2 0.0 - 0.4 X10*3/uL [facility] Basophils Absolute Auto 0.1 0.0 - 0.2 X10*3/uL [facility] NRBC Abs Auto 0.000 0.0 - 0.012 X10*3/uL [facility] 04/26/2024 4:47 PM EST 04/26/2024 4:50 PM EST us Generic External Data Provider LAB BLOOD ORDERAB LES Final Result Performing Organization Address City/[facility]/ZIP Co de Phone Number [facility] [address] [place] [phone] * Partial Thromboplastin Time, Activated (APTT) (04/26/2024 4:47 PM EST) Partial Thromboplastin Time 31.7 26.0 - 36.8 SEC [facility] Comment:For information rega rding the monitoring of direct thrombininhibitors, please refer to Pharmacy. 04/26/2024 4:47 PM EST 04/26/2024 4:50 PM EST Generic External Data Provider LAB BLOOD ORDERAB LES Final Result Performing Organization Address [facility]/ZIP Co de Phone Number [facility] [address] [place] [phone] * Prothrombin Time-INR (04/26/2024 4:47 PM EST) [facility] Prothrombin Time 12.0 10.9 - 12.4 SEC [facility] INTERNATIONAL NORM RATIO 1.0 0.9 - 1.1 [facility] Comment:INTERNATIONAL NORMAL IZED RATIO (INR) [...] ORDERAB LES Final Result Performing Organization Address [facility]/RUST Co de Phone Number [facility] [address] [place] [phone] * Magnesium (04/26/2024 4:47 PM EST) [facility] Magnesium 1.9 1.6 - 2.6 mg/dL [facility] 04/26/2024 4:47 PM EST 04/26/2024 4:50 PM EST Generic External Data Provider LAB BLOOD ORDERAB LES Final Result Performing Organization Address [facility] de Phone Number [facility] [address] [place] [phone] * (ABNORMAL) Comprehensive Metabolic Panel (04/26/2024 4:47 PM EST) [facility] Sodium 140 135 - 145 mmol/L [facility] Potassium 4.1 3.3 - 5.1 mmol/L [facility] Chloride 108 96 - 108 mmol/L [facility] Carbon Dioxide 28 22 - 29 mmol/L [facility] Anion Gap 8(L) 12 - 20 [facility] Urea Nitrogen (BUN) 17(H) 9 - 16 mg/dL [facility] Creatinine, Serum 0.78 0.5 - 1.4 mg/dL [facility] Creatinine Clr Calc Pharmacy 84.2 [facility] Comment:Provided height and weight: 157.48 cm,77.8 kg.eGFR (calculated from the MDRD study equation) and eCrCl(calculated from the Cockcroft-Gault equation) are based ondifferent parameters and may not yield comparable results.If eCrCl result is absurd, please check patient'sheight/weight. Estimated Glomerular Filt Rate >60 [facility] Comment:Chronic Kidney Disea se: Estimated GFR < 60 mL/min/1.12b7Inlrui Kidney Disease: Estimated GFR < 15 mL/min/1.73m2 Glucose 80 60 - 115 mg/dL [facility] Calcium 9.0 8.4 - 10.2 mg/dL [facility] Bilirubin, Total 0.3 0.0 - 1.0 mg/dL [facility] Aspartate Amino Transferase 21 5 - 31 U/L [facility] Alanine Aminotransferase 14 0 - 31 U/L [facility] Total Protein 7.6 6.5 - 8.0 g/dL [facility] Albumin Level 4.1 3.5 - 5.0 g/dL [facility] Alkaline Phosphatase 72 39 - 117 U/L [facility] 04/26/2024 4:47 PM EST 04/26/2024 4:50 PM EST us Generic External Data Provider LAB BLOOD ORDERAB LES Final Result [facility] [address], [place] [phone] * US RENAL BI (04/21/2024 12:04 PM EST) Anatomical Region Laterality Modality Abdomen Ultrasound 04/21/2024 12:0 4 PM EST Narrative 04/21/2024 12:05 PM EST ? [facility] ?[address] ?[place] [address] ? Ultrasound Report ? Signed ? Patient: Abrams James,Corina ?MR#: [id number] ?? [id number] ? : 1975 ?Acct:[id number] ? Age/Sex: 49 / F ?ADM Date: 04/20/24 ? Loc: HO.US ? Attending Dr: Claritza Leonard DO ? Ordering Physician: Claritza Leonard DO ?? Date of Service: 04/20/24 ?? Procedure(s): US renal BI ?? Accession Number(s): [id number] ? cc: Claritza Leonard DO ? CLINICAL [...] DD/ 1204 ? TD/TT: 04/21/24 1204 ? Cleat Feeder: ? Procedure Note Bonita, Image - 04/21/[address] [address] Ultrasound Report Signed Patient: Baljit NielsenJustina#: [id number] : 1975Acct:[id number] Age/Sex: 49 / FADM Date: 04/20/24 Loc: HO.US Attending Dr: Claritza Leonard DO Ordering Physician: Claritza Leonard DO Date of Service: 04/20/24 Procedure(s): US renal BI Accession Number(s): [id number] cc: Claritza Leonard DO CLINICAL HISTORY: probable [...] 04/21/24 1204 DD/ 1204 TD/TT: 04/21/24 1204 Cleat Feeder: us Claritza Leonard DO IMG US PROCEDURES Edited Res ult - Final * US Pelvis Transvaginal (04/20/2024 3:25 PM EST) Anatomical Region Laterality Modality Pelvis Ultrasound 04/20/2024 3:25 PM EST Narrative 04/21/2024 9:28 AM EST ? [facility] ?[address] ?[place] [address] ? Ultrasound Report ? Signed ? Patient: Abrams James,Corina ?MR#: [id number] ?? [id number] ? : 1975 ?Acct:[id number] ? Age/Sex: 49 / F ?ADM Date: 01/28/25 ? Loc: HO.US ? Attending Jacqueline Leonard DO ? Ordering Physician: Claritza Leonard DO ?? Date of Service: 04/20/24 ?? Procedure(s): US pelvic and transvaginal ?? Accession Number(s): [id number] ? cc: Claritza Leonard DO ? EXAMINATION: [...] DD/ 1525 ? TD/TT: 04/20/24 1555 ? Cleat Feeder: ? Procedure Note Bonita, Image - 04/21/[address] [address] Ultrasound Report Signed Patient: Jose Alberto JamesYarelis galvan#: [id number] : 1975Acct:[id number] Age/Sex: 49 / FADM Date: 04/20/24 Loc: HO.US Attending Dr: Claritza Leonard DO Ordering Physician: Claritza Leonard DO Date of Service: 04/20/24 Procedure(s): US pelvic and transvaginal Accession Number(s): [id number] cc: Claritza Leonard DO EXAMINATION: US PELVIS [...] 04/21/24 0926 DD/ 1525 TD/TT: 04/20/24 1555 Cleat Feeder: us Claritza Leonard DO IMG US PROCEDURES Edited Res ult - Final * XR Hip 2 or 3 Views Left (03/29/2024 1:06 PM EST) Anatomical Region Laterality Modality Lower Extremities, Hip Left Radiograp hic Imaging 03/29/2024 1:06 PM EST Narrative 03/29/2024 1:08 PM EST ? [facility] ?[address] ?[place] [address] ?XRay Report ? Signed ? Patient: Corina Nielsen ?MR#: [id number] ?? [id number] ? : 1975 ?Acct:[id number] ? Age/Sex: 49 / F ?ADM Date: 03/26/24 ? Loc: HO.XRAY ? Attending Dr: Jada CLEMENT ? Ordering Physician: Jada Cervantes ?? Date of Service: 03/26/24 ?? Procedure(s): XR hip LT min 2V w/wo pel ?? Accession Number(s): [id number] ? cc: Jada Cervantes; Marian Crook MD [...] DD/ 1306 ? TD/TT: 03/29/24 1306 ? Cleat Feeder: ? Procedure Note Bonita, Image - 03/29/[address] [address] XRay Report Signed Patient: Yarelis Nielsen#: [id number] : 1975Acct:[id number] Age/Sex: 49 / FADM Date: 03/26/24 Loc: ABIODUN Attending Dr: Jada Cervantes PULLMAN CLERK Ordering Physician: Jada Cervantes Date of Service: 03/26/24 Procedure(s): XR hip LT min 2V w/wo pel Accession Number(s): [id number] cc: Jada Cervantes; Marian Crook MD CLINICAL [...] 03/29/24 1307 DD/ 1306 TD/TT: 03/29/24 130 Cleat Feeder: [facility] External Provider IMG XR PROCEDURES Edited Result - Final * Hepatitis C Ab (03/27/2024 10:19 AM EST) Hepatitis C Antibody Nonreactive Nonreactive [facility] Comment:Antibodies to HCV no t detected; does not exclude early acuteHCV infection. 03/27/2024 10:1 9 AM EST 03/27/2024 10:19 AM EST Generic External Data Provider LAB BLOOD ORDERAB LES Final Result [facility] [address] [place] [address] [phone] * (ABNORMAL) Iron And Total Iron Binding Capacity (03/27/2024 10:19 AM EST) Iron 298(H) 30 - 160 mcg/dL [facility] Total Iron Binding Capacity 323 228 - 428 mcg/dL [facility] Percent Iron Saturation 92(H) 15 - 50 % [facility] Unsaturated Iron Binding <25 ug/dL [facility] 03/27/2024 10:1 9 AM EST 03/27/2024 10:19 AM EST us Generic External Data Provider LAB BLOOD ORDERAB LES Final Result Performing Organization Address [facility] de Phone Number [facility] [address] [place] [address] [phone] * Hepatitis A Antibody, Total (03/27/2024 10:19 AM EST) Hepatitis A Antibody IgG Nonreactive Nonreactive [facility] 03/27/2024 10:1 9 AM EST 03/27/2024 10:19 AM EST Generic External Data Provider LAB BLOOD ORDERAB LES Final Result Performing Organization Address [facility] Number [facility] [address] [place] [address] [phone] * Tissue Transglutaminase Antibody, IgA (03/27/2024 10:19 AM EST) Transglutaminase IgA <1.0 U/mL [facility] Comment:Value Interpretation ----- <15.0 Antibody not detected> or = 15.0 Antibody detectedTHIS TEST WAS PERFORMED AT:[employer] [place] [id number] OLIVAS MD 03/27/2024 10:1 9 AM EST 03/27/2024 10:19 AM EST Generic External Data Provider LAB BLOOD ORDERAB LES Final Result Performing Organization Address [facility] de Phone Number [facility] [address] [place] [address] [phone] * Hepatitis B surface antigen, EIA (03/27/2024 10:19 AM EST) Hepatitis B Surface Ag Negative Negative [facility] 03/27/2024 10:1 9 AM EST 03/27/2024 10:19 AM EST us Generic External Data Provider LAB BLOOD ORDERAB LES Final Result Performing Organization Address [facility] de Phone Number [facility] [address] [place] [address] [phone] * Hepatitis B Core Antibody, Total (03/27/2024 10:19 AM EST) Hepatitis B Core Antibody Nonreactive Nonreactive [facility] 03/27/2024 10:1 9 AM EST 03/27/2024 10:19 AM EST Generic External Data Provider LAB BLOOD ORDERAB LES Final Result Performing Organization Address [facility] Phone Number [facility] [address] [place] [address] [phone] * HIV-1/2 Antigen and Antibodies, Fourth Generation, with Reflexes (03/27/2024 10:19 AM EST) HIV AB/AG Nonreactive Nonreactive [facility] Comment:HIV-1 p24 Ag and/or HIV-1/HIV-2 Ab not detected.A test result that is nonreactive does not exclude thepossibility of exposure to or infection with HIV-1 and/orHIV-2. Nonreactive results in this assay for individualswith prior exposure to HIV-1 and/or HIV-2 may be due toantigen and antibody levels that are below the limit ofdetection of this assay.The [employer] HIV Ag/Ab Combo assay result andsupplemental assay results should be interpreted inconjunction with the patient's clinical presentation,history and other laboratory results. If the results areinconsistent with clinical evidence, additional testing issuggested to confirm the result. 03/27/2024 10:1 9 AM EST 03/27/2024 10:19 AM EST us Generic External Data Provider LAB BLOOD ORDERAB LES Final Result Performing Organization Address [facility]/ZIP Co de Phone Number [facility] [address] [place] [phone] * Hepatitis B Surface Antibody, Qualitative (03/27/2024 10:19 AM EST) ~Hepatitis B Surface Antibody REACTIVE Nonreactive [facility] Comment:REACTIVE: > 11.99 mI U/mL 03/27/2024 10:1 9 AM EST 03/27/2024 10:19 AM EST us Generic External Data Provider LAB BLOOD ORDERAB LES Final Result Performing Organization Address [facility] Phone Number [facility] [address] [place] [phone] * C-reactive Protein (03/27/2024 10:19 AM EST) Pathologist [facility] C Reactive Protein <0.04 < or = 0.50 mg/dL [facility] 03/27/2024 10:1 9 AM EST 03/27/2024 10:19 AM EST us Generic External Data Provider LAB BLOOD ORDERAB LES Final Result Performing Organization Address [facility] Number [facility] [address] [place] [phone] * Immunoglobulin A (03/27/2024 10:19 AM EST) Pathologist [facility] Immunoglobulin A 269 47 - 310 mg/dL [facility] Comment:THIS TEST WAS PERFOR MED AT:[employer] [address] [id number] OLIVAS MD 03/27/2024 10:1 9 AM EST 03/27/2024 10:19 AM EST us Generic External Data Provider LAB BLOOD ORDERAB LES Final Result Performing Organization Address [facility] de Phone Number [facility] [address] [place] [phone] * Ferritin (03/27/2024 10:19 AM EST) Ferritin 12 10 - 250 ng/mL [facility] 03/27/2024 10:1 9 AM EST 03/27/2024 10:19 AM EST us Generic External Data Provider LAB BLOOD ORDERAB LES Final Result [facility] [address] [place] [phone] * MR Lumbar Spine w/o Contrast (03/04/2024 7:00 PM EST) Anatomical Region Laterality Modality Spine, L-spine Magnetic Resonan ce 03/04/2024 7:00 PM EST Narrative 03/29/2024 9:08 AM EST ? [facility] ?[address] ?[place] [address] ? Magnetic Resonance Report ? Signed ? Patient: Corina Nielsen ?MR#: [id number] ?? [id number] ? : 1975 ?Acct:[id number] ? Age/Sex: 49 / F ?ADM Date: 03/04/24 ? Loc: HO.MRI ? Attending Dr: Claritza Leonard DO ? Ordering Physician: Claritza Leonard DO ?? Date of Service: 03/04/24 ?? Procedure(s): MR lumbar spine wo con ?? Accession Number(s): [id number] ? cc: [facility]; Claritza Leonard DO ? EXAMINATION: ?? MR [...] DD/ 1900 ? TD/TT: 03/04/24 1920 ? Cleat Feeder: ? Procedure Note Donotuseinterpreter, Image - 03/29/2024 [place] [address] Magnetic Resonance Report Signed Patient: Baljit NielsenR#: [id number] : 1975Acct:[id number] Age/Sex: 49 / FADM Date: 03/04/24 Loc: HO.MRI Attending Dr: Claritza Leonard DO Ordering Physician: Claritza Leonard DO Date of Service: 03/04/24 Procedure(s): MR lumbar spine wo con Accession Number(s): [id number] cc: [facility]; Claritza Leonard DO EXAMINATION: MR LUMBAR SPINE [...] signed by Valentino Jones MDin OV> 03/29/24 0905 DD/ 99 TD/TT: 03/04/241919 Cleat Feeder: Claritza Leonard DO [facility] MRI PROCEDURES Edited Re sult - Final * Cologuard?? colon cancer screening (02/02/2024 9:15 AM EST) Cologuard Result Negative Negative 02/08/20 2:05 AM EST [facility] (CLIA #:[id number]) Comment: NEGATIVE TEST RESULT. A negative Cologuard [...] colonoscopy. (Isadora Mccord, N Engl J Med 2014;370(14):1286- 1297) The normal value (reference range) for this assay is negative. COLOGUARD RE-SCREENING RECOMMENDATION: Periodic colorectal cancer screening is an important part of preventive healthcare for asymptomatic individuals at average risk for colorectal cancer. ??Following a negative Cologuard result, the [place] [employer] Society and U.S. Multi-Society Task Force screening guidelines recommend a Cologuard re-screening interval of 3 years. References: [place] [employer] Guideline for Colorectal Cancer Screening: https://www.cancer.org/cancer/nptnn-aysxat-qbvzet/pivmgppjg-zyhhfekcc-busjpxn/ac s-rec ommendations.html.; Hector DK, Julio Cesar PEÑA, Janet TroncosoK, Colorectal Cancer Screening: Recommendations for Physicians and Patients from the U.S. Multi-Society Task Force on Colorectal Cancer Screening , Am J Gastroenterology 2017; 112:6676-0932. TEST DESCRIPTION: Composite algorithmic analysis of stool [...] colonoscopy. (Isadora Mccord, N Engl J Med 2014;370(14):8963-7752.) Cologuard may produce a false negative or false positive result (no colorectal cancer or precancerous polyp present at colonoscopy follow up). A negative Cologuard test result does not guarantee the absence of CRC or advanced adenoma (pre-cancer). The current Cologuard screening interval is every 3 years. ([place] [employer] Society and U.S. Multi-Society Task Force). Cologuard performance data in a 10,000 patient pivotal study using colonoscopy as the reference method can be accessed at the following location: www.adicate timeads.[employer]/results. Additional description of the Cologuard test process, warnings and precautions can be found at www.cologuard.com. Stool specimen (specimen) Rectal contents / Unknown 02/02/2024 9:15 AM EST 02/03/2024 10:52 AM EST Marian Crook MD LAB MOLECULAR DIAGNOSTIC S ORDERABLES Final Result [facility] (CLIA #:[id number]) [address] [place] [place] [address], * BI Mammogram Screening Tomosynthesis Bilateral (12/05/2023 3:30 PM EDT) Anatomical Region Laterality Modality Breast Bilateral Mammography 12/05/2023 3:30 PM EDT Narrative 12/19/2023 8:58 AM EDT ? [facility] [place] ? [address] [facility] ?[place] [address] ? Mammography Report ? Signed ? Patient: Abrams James,Corina ?MR#: [id number] ?? [id number] ? : 1975 ?Acct:[id number] ? Age/Sex: 48 / F ?ADM Date: 09/13/24 ? Loc: HO.MAMMO ? Attending Dr: Marian Crook MD ? Ordering Physician: Marian Crook MD ?Results: 1Ne ?? gative ? Date of Service: 12/05/23 ?Follow Up: 1 Year From Orig ?? inal Mammogram ? Procedure(s): MM tomosynthesis screening BI ?? Accession Number(s): [id number] ? cc: Marian Crook MD ? EXAMINATION: [...] DD/ 1530 ? TD/TT: 12/05/23 1540 ? Cleat Feeder: ? Procedure Note Donotuseinterpreter, Image - 12/19/2023 [facility] [address] [place] [address] Mammography Report Signed Patient: Yarelis Nielsen#: [id number] : 1975Acct:[id number] Age/Sex: 48 / FADM Date: 12/05/23 Loc: HO.MAMMO Attending Dr: Marian Crook MD Ordering Physician: Marian Crook MDResults: 1Ne gative Date of Service: 12/05/23Follow Up: 1 Year From Orig inal Mammogram Procedure(s): MM tomosynthesis screening BI Accession Number(s): [id number] cc: Marian Crook MD EXAMINATION: MM SCREENING [...] 12/19/23 0855 DD/ 1530 TD/TT: 12/05/23 1540 Cleat Feeder: us Marian Crook MD IMG BI PROCEDURES Final Result from Last 3 Months or Most Recently Relevant to Health Maintenance Insurance [facility] [facility] C3 Care Teams Entertainment Production Professional Relationship Specialty Start Date End Date Marian Crook MD [address] [place] [address] PCP - General Internal Medicine 09/12/23
--- OUTSIDE RECORDS SUMMARY | 2024-05-14 14:25 | XMS_ITS | Encounter Summary ---
Author Organization [employer] Address [address] [facility] [address] [place] [address] Care Team Providers Care Clerk Television Production Name Role Phone Marian Crook MD Primary [...] Upcoming Encounters Date Type Department Care Team ([facility] st Contact Info) Description 07/02/2024 11:45 AM EDT Office Visit [facility] [address] [place], [place] [phone] Marian Crook MD [address] [place] [address] documented as of this encounter Procedures Procedure Name Priority Date/Time Associated Diagnosis Comments TSH W/REFLEX TO FT4 Routine 05/05/2024 1 1:23 AM EST CBC Routine 05/05/2024 11:23 AM EST HCG, TOTAL, QN Routine 05/05/2024 11:23 AM EST LH Routine 05/05/2024 11:23 AM EST FSH Routine 05/05/2024 11:23 AM EST CHLAMYDIA/N. GONORRHOEAE RNA, TMA, UROGENITAL Routine 05/05/2024 11:19 AM EST HPV DNA, LOW/HIGH RISK Routine 05/05/2024 10:22 AM EST PAP SMEAR Routine 05/05/2024 10:22 AM EST documented in this encounter Results * LH (05/05/2024 11:23 AM EST) Lutenizing Hormone 7.8 mIU/mL [facility] Comment:Reference Range Foll icular Phase 1.9-12.5 Mid-Cycle Peak 8.7-76.3 Luteal Phase 0.5-16.9 Postmenopausal 10.0-54.7THIS TEST WAS PERFORMED AT:[facility] [address] [phone] OLIVAS MD 05/05/2024 11:2 3 AM EST 05/05/2024 11:23 AM EST Generic External Data Provider LAB BLOOD ORDERAB LES Final Result Performing Organization Address [facility]/ZIP Co de Phone Number [facility] [address] [place] [phone] * FSH (05/05/2024 11:23 AM EST) Pathologist [facility] Follicle Stimulating Hormone 14.4 mIU/mL [facility] Comment:Reference Range Foll icular Phase 2.5-10.2 Mid-cycle Peak 3.1-17.7 Luteal Phase 1.5- 9.1 Postmenopausal 23.0-116.3THIS TEST WAS PERFORMED AT:[facility] [address] [phone] OLIVAS MD 05/05/2024 11:2 3 AM EST 05/05/2024 11:23 AM EST us Generic External Data Provider LAB BLOOD ORDERAB LES Final Result Performing Organization Address [facility] Co de Phone Number [facility] [address] [place] [phone] * hCG, Total, Quantitative (05/05/2024 11:23 AM EST) Pathologist [facility] HCG Quantitative <2 mIU/mL [facility] Comment:Weeks post LMP Appro ximate hCG(Last Menstrual Period) Range (mIU/ml)3 - 4 weeks 9 - 1304 - 5 weeks 75 - 2,6005 - 6 weeks 850 - 20,8006 - 7 weeks 4000 - 100,2007 - 12 weeks 11,500 - 289,82467 - 16 weeks 18,300 - 137,07953 - 29 weeks (2nd trimester) 1,400 - 53,39317 - 41 weeks (3rd trimester) 940 - [...] ORDERAB LES Final Result Performing Organization Address City/[facility]/ZIP Co de Phone Number [facility] [address] [place] [phone] * TSH with Reflex to Free T4 (05/05/2024 11:23 AM EST) Pathologist [facility] TSH reflex Free T4 0.78 0.32 - 4.0 uIU/mL [facility] 05/05/2024 11:2 3 AM EST 05/05/2024 11:23 AM EST us Generic External Data Provider LAB BLOOD ORDERAB LES Final Result Performing Organization Address City/[facility]/ZIP Co de Phone Number [facility] [address] [place] [phone] * (ABNORMAL) CBC (05/05/2024 11:23 AM EST) White Blood Count 5.5 4.8 - 10.8 X10*3/uL [facility] Red Blood Count 3.92(L) 4.20 - 5.50 X10*6/uL [facility] Hemoglobin 12.0 12.0 - 16.0 g/dl [facility] Hematocrit 36.3(L) 37.0 - 47.0 % [facility] Mean Corpuscular Volume 92.6 80.0 - 98.0 fL [facility] Mean Corpuscular Hemoglobin 30.6 27.0 - 33.0 pg [facility] Mean Corpuscular HGB Conc 33.1 31.0 - 35.0 g/dl [facility] Red Cell Distribution Width 12.3 11.0 - 16.0 % [facility] Platelet Count 264 160 - 400 X10*3/uL [facility] Mean Platelet Volume 11.1 9.4 - 12.3 fL [facility] NRBC Pct Auto 0.0 0.0 - 0.2 /100WBC [facility] NRBC Abs Auto 0.000 0.0 - 0.012 X10*3/uL [facility] 05/05/2024 11:2 3 AM EST 05/05/2024 11:23 AM EST us Generic External Data Provider LAB BLOOD ORDERAB LES Final Result [facility] [address] [place] [phone] * Chlamydia/N. Gonorrhoeae RNA, TMA, Urogenitial (05/05/2024 11:19 AM EST) CT PCR NOT DETECTED Not Detect. [facility] Comment:A not detected test result [...] psychologicalconsequences. NG PCR NOT DETECTED Not Detect. [facility] Comment:A not detected test result [...] AM EST 05/05/2024 11:56 AM EST Narrative [facility] - 05/06/2024 7:21 AM EST Vaginal us Generic External Data Provider LAB MICROBIOLOGY - GENERAL ORDERABLES Final Result Performing Organization Address City/State/[facility] Co de Phone Number [facility] [address] [place] [phone] * HPV DNA, Low/High Risk (05/05/2024 10:22 AM EST) HPV High Risk Negative Negative [facility] HPV Genotype 16 Negative Negative [facility] HPV Genotype 18 Negative Negative [facility] Comment:HPV testing performe d at [facility] (CLIA#[id number]), [address] [place] [address].Testing for HPV was performed using the [employer]system. The presence of HPV in the female [...] Provider LAB BLOOD ORDERAB LES Final Result [facility] [address] [place] [address] [phone] * Pap Smear (05/05/2024 10:22 AM EST) 05/05/2024 10:2 2 AM EST 05/06/2024 6:10 AM EST Narrative [facility] - 05/11/2024 9:16 AM EST ----- ------- Name: Corina Nielsen ?Age/Sex: 49/F ? : 1975 Unit#: [id number] ?? Attend Dr: Pj Posadas MD ?Re05/05/24 ?Status: DEP REF ? Location: HO.LNP ?Disch: ? ----- ------- SPEC : [id number] ? RECD: 05/06/24 ? STATUS: ??SOUT ? REQ NUM: [id number] ? LAURA: 05/05/24 ? SUBM DR: Pj [...] Copies To: ?? Marian Crook MD ?? [facility] ?? [address] ?? [place] [address] ?? [phone] ?? Pj Posadas MD ?? [facility] ?? [address] ?? [place] [address] ?? [phone] ----- ------- Signed (signature on file) SCARLET Hernandez (ASCP) 05/11/2416 ? ----- ------- ? END OF REPORT ? us Generic External Data Provider LAB CYTOLOGY SHONA VIRAMONTES Final Result [facility] [address] [place] [phone] [phone] documented in this encounter Visit Diagnoses Not on filedocumented in this encounter Additional Health Concerns Assessment Noted Time PHQ-9 Depression Total Score: 22 024 2:02 PM EDT documented as of this encounter Care Teams Clerk Television Production Relationship Specialty Start Date End Date Marian Crook MD [address] [place] [address] PCP - General Internal Medicine 09/12/23 documented as of this encounter
== END 2024-05-14 14:56 | disposition home or self-care (01) ==
PROVIDERS: PCP Internal Medicine; Visit Provider Urology
DX: Z13.9 Encounter for screening, unspecified (principal)

== ENCOUNTER → 2024-05-14 13:57 | Outpatient (BNVA) | payer MEDICAID, SELFPAY | PROVIDERS: PCP Internal Medicine; Visit Provider Urology | DX: R35.0 Frequency of micturition (principal); R39.15 Urgency of urination | CPT/HCPCS: 51798; 81003; 99202 ==

== ENCOUNTER 2024-05-27 11:14 | Day surgery (SDC) | payer MEDICAID, SELFPAY ==
[2024-05-25 13:42] VITALS: BMI 29.6
--- NOTE | 2024-05-26 08:56 | P.CONAN_ITS ---
Documented by User: Fabiola Avila NP 05/26/24 08:57 HPI - Anesthesia Eval Consult details Narrative: 49yo F for Upper Endoscopy and Colonoscopy PMF Active Problems Active Problems: All Active Problems Urinary urgency (Acute) Abnormal uterine bleeding (AUB) (Acute) Hydronephrosis, left (Acute) Thickened endometrium (Acute) Uterine fibroid (Acute) Muscle spasm of back (Acute) Lumbar back pain with radiculopathy affecting left lower extremity (Acute) Sacroiliac joint pain (Acute) Left hip pain (Acute) Change in bowel habit (Acute) Epigastric pain (Acute) Abnormal stress electrocardiogram test (Acute) Palpitation (Acute) Family history of premature coronary artery disease (Acute) Precordial chest pain (Acute) S/P laparoscopic sleeve gastrectomy (Acute) Iron deficiency (Acute) H/O abdominoplasty (Acute) Past Medical History Medical History delivery delivered Depression Anal fissure Hemorrhoids Chronic RLQ pain Polyuria Dizziness FILIBERTO (obstructive sleep apnea) Moderate persistent asthma in adult without complication Chronic low back pain Iron deficiency Arthritis History of asthma Family History Family History Mother History of hypertension Arthritis Glaucoma Father Heart problem History of hypertension Brother Heart problem History of hypertension Sister History of hypertension Brother No problems noted. Brother No problems noted. Brother No problems noted. Brother No problems noted. Sister Ovarian cancer Sister No problems noted. Sister No problems noted. Surgical History Surgical History S/P laparoscopic sleeve gastrectomy H/O abdominoplasty Social History Social History Household Members: Spouse and Children Housing: House Are you a primary nurse care manager to a significant other at home: No Do you presently have visiting nurse or other home services: No Alcohol intake: current Alcohol intake frequency: holidays/special occasions only Patient Tobacco Use Status: Never used Tobacco Use of substances other than those prescribed or required for medical reasons: No Have you been hit, kicked, punched, or otherwise hurt by someone within the past year? If so, by whom?: No Are you DNR?: No Advance Directives: No Advance Directives Information Provided: Yes Recently lost weight without trying: No service: No Current occupational status: employed Meds Allergies Allergy/AdvReac Type Severity Reaction Status Date / Time No Known Allergies Allergy Verified 05/14/24 14:18 [No Known Allergies*] Home Medications ?Medication ?Instructions ?Recorded ?Confirmed ?Last Taken ?Type albuterol sulfate 2.5 mg/3 mL 1 vial inhalation Q4H PRN 02/01/22 05/03/24 Unknown History (0.083 %) solution for nebulization Shortness Of Breath cholecalciferol (vitamin D3) 50 50 mcg PO DAILY 02/18/24 05/03/24 Unknown History mcg (2,000 unit) tablet (Vitamin D3) lidocaine 5 % topical patch 1 patch topical DAILY 03/26/24 05/03/24 Unknown History Exam Height,Weight and Vital Signs: Height 5 ft 3 in Weight 75.75 kg Assessment and Plan Assessment Anesthesia Assessment: Chart Reviewed Documented by User: Diane Fleming MD 05/27/24 12:58 [facility] Past Medical History Medical History delivery delivered Depression Anal fissure Hemorrhoids Chronic RLQ pain Polyuria Dizziness FILIBERTO (obstructive sleep apnea) Moderate persistent asthma in adult without complication Chronic low back pain Iron deficiency Arthritis History of asthma Family History Family History Mother History of hypertension Arthritis Glaucoma Father Heart problem History of hypertension Brother Heart problem History of hypertension Sister History of hypertension Brother No problems noted. Brother No problems noted. Brother No problems noted. Brother No problems noted. Sister Ovarian cancer Sister No problems noted. Sister No problems noted. Surgical History Surgical History S/P laparoscopic sleeve gastrectomy H/O abdominoplasty History of Problems with Anesthesia: No Social History Social History Household Members: Spouse and Children Housing: House Are you a primary nurse care manager to a significant other at home: No Do you presently have visiting nurse or other home services: No Alcohol intake: current Alcohol intake frequency: holidays/special occasions only Patient Tobacco Use Status: Never used Tobacco Use of substances other than those prescribed or required for medical reasons: No Have you been hit, kicked, punched, or otherwise hurt by someone within the past year? If so, by whom?: No Are you DNR?: No Advance Directives: No Advance Directives Information Provided: Yes Recently lost weight without trying: No service: No Current occupational status: employed Meds Allergies Allergy/AdvReac Type Severity Reaction Status Date / Time No Known Allergies Allergy Verified 05/14/24 14:18 [No Known Allergies*] Home Medications ?Medication ?Instructions ?Recorded ?Confirmed ?Last Taken ?Type albuterol sulfate 2.5 mg/3 mL 1 vial inhalation Q4H PRN 02/01/22 05/03/24 Unknown History (0.083 %) solution for nebulization Shortness Of Breath cholecalciferol (vitamin D3) 50 50 mcg PO DAILY 02/18/24 05/03/24 Unknown History mcg (2,000 unit) tablet (Vitamin D3) lidocaine 5 % topical patch 1 patch topical DAILY 03/26/24 05/03/24 Unknown History Exam Airway Mallampati Class: II TM Dist: >3cm Neck ROM: Full Loose/Missing/Broken Teeth: No Heart: RRR Lungs: CTA Assessment and Plan Assessment Anesthesia Assessment: Anesthesia Plan Discussed Final Anesthetic Review History of Problems with Anesthesia: No NPO: Yes ASA Class: II Final Preanesthetic Review: Meds/Allgs Chart Reviewed, Consent Obtained/Reviewed and Anes Risks/Benef Reviewed Patient Risk: Low Procedure Risk: Intermediate Anesthetic Plan Anesthetic Plan: MAC: Disposition: Standard PACU
[2024-05-27 12:16] VITALS: BP 108/76; PULSE 83; RESP 16; TEMP 36.7; O2SAT 98
--- NOTE | 2024-05-27 12:19 | P.HPSUR_ITS ---
Pre-Procedural Eval Section A - 24 Hr Update-Section A only Date of Service: 05/27/24 Section B - Complete if H&P > 30 days Chief Complaint: Abd pain, change in bowel habits Details of Present Illness: Arthritis History of asthma Surgical History Hx of sleeve gastrectomy H/O abdominoplasty Present Medications: see Short Stay Collaborative assessment Allergies: Allergies Allergy/AdvReac Type Severity Reaction Status Date / Time No Known Allergies Allergy Verified 05/14/24 14:18 [No Known Allergies*] Review of Systems Review of Systems Comment: Ten point ROS negative Exam Exam Comment: Gen appear: No acute distress HEENT: no icterus Chest: No overt resp distress Abd: soft, nontender, nondistended Psych: Stable affect, answering questions appropriately Neuro: A/Ox3 noted to move all extremities spontaneously Ext: no peripheral edema Plan Diagnosis/Plan: Unchanged I have reviewed the history and physical and performed a pertinent physical examination on my patient. No changes have occurred unless specified. Time Spent With Patient Time: Total time managing care of this patient today ____ minutes.
[2024-05-27 12:21] LABS: UPreg QC Valid YES; Urine Pregnancy NEGATIVE (NEGATIVE)
[2024-05-27] MEDS: Lactated Ringers 1,000 ML 100 ML IVCONT (12:29)
--- NOTE | 2024-05-27 13:33 | P.OPN-COLO_ITS ---
Colonoscopy Operative Note Operative Note Date of Service: 05/27/24 Narrative: Procedure: Upper endoscopy and colonoscopy Indication: Abd pain, change in bowel habits Endoscopist: Darling Gaston MD Anesthesia Provider: Dr Nisha Fleming Anesthesia type: MAC Instrument: [id number] and [id number] EGD Procedure:?? The procedure, indications, preparation and potential complications were reviewed with the patient, who indicated understanding and gave written informed consent to proceed. The endoscope was introduced through the mouth, and advanced to the 2nd part of the duodenum. The mucosa was carefully examined on slow withdrawal of the endoscope. The patient tolerated the procedure well. There were no immediate complications.? EGD Findings:? * Esophagus:? Normal esophageal mucosa was noted. The Z-line was at 36 cm * Stomach:? Normal gastric mucosa. The stomach was tubular and elongated keeping with hx of sleeve gastrectomy. The gastric pouch was dilated and scope was easily retroflexed. Random cold forceps biopsies were taken from the stomach. * Duodenum:? Normal duodenal mucosa. Cold forceps biopsies were taken from the duodenal bulb and 2nd portion of the duodenum to rule out celiac sprue. Colonoscopy Procedure:? The patient was then turned for the colonoscopy. A digital rectal exam was performed which was abnormal for large external hemorrhoids.? A distal attachment cap was affixed to the tip of the scope and the colonoscope was then inserted through the anus and advanced through the colon and advanced to the cecum at 70 cm and terminal ileum.? Appendiceal orifice and ileocecal valve were identified. Mucosa was carefully examined under high definition white light as the instrument was slowly withdrawn in a retrograde panoramic fashion. Retroflexion was performed in ascending colon and rectum. The procedure was not difficult. The quality of the prep was BBPS: 2+3+3 = adequate Withdrawal time 14 minutes Limitations: No limitations Findings: Mucosa: Normal colon and terminal ileum mucosa. Protruding lesions: * 1 pedunculated polyp of size 13 mm in sigmoid colon. Hot snare polypectomy was performed. The polyp was completely removed and retrieved. * Medium internal hemorrhoids without stigmata of recent bleeding. Impression: 1. Normal esophagus 2. s/p sleeve gastrectomy anatomy 3. Normal gastric mucosa (biopsy) 3. Normal duodenum (biopsy) 4. Normal colon and terminal ileum mucosa (biopsy) 5. 1 polyp removed 6. Internal and external hemorrhoids Recommendations:?? * Follow-up path results * Avoid NSAIDs * H Pylori treatment if biopsies + * Hydrocortisone suppositories MT at bedtime x 10-12 days * Repeat colonoscopy in 3 years if polyp is an adenoma
[2024-05-27 13:37] VITALS: BP 95/54; PULSE 79; RESP 18; TEMP 36.1; O2SAT 100
[2024-05-27 13:50] VITALS: BP 101/53; PULSE 79; RESP 18; TEMP 36.1; O2SAT 100
== END 2024-05-27 14:12 | disposition home or self-care (01) ==
PROVIDERS: Nurse Practitioner; Visit Provider Internal Medicine
PROC: (CPT 45385; principal; 2024-05-27 13:40)
DX: D12.5 Benign neoplasm of sigmoid colon (principal); K64.8 Other hemorrhoids; K64.4 Residual hemorrhoidal skin tags; R19.4 Change in bowel habit; K62.5 Hemorrhage of anus and rectum; K44.9 Diaphragmatic hernia without obstruction or gangrene; E61.1 Iron deficiency; R10.13 Epigastric pain; J45.909 Unspecified asthma, uncomplicated; G47.33 Obstructive sleep apnea (adult) (pediatric); Z90.3 Acquired absence of stomach [part of]; Z98.84 Bariatric surgery status
CPT/HCPCS: 45385; 43239; 81025; 88305; 88313; 88342; J2003; J2704

== ENCOUNTER → 2024-05-27 11:14 | Outpatient (BNV) | payer MEDICAID, SELFPAY | PROVIDERS: Visit Provider Internal Medicine | DX: R10.9 Unspecified abdominal pain (principal); Z90.3 Acquired absence of stomach [part of]; Z98.84 Bariatric surgery status; R19.4 Change in bowel habit; D12.5 Benign neoplasm of sigmoid colon; K64.8 Other hemorrhoids | CPT/HCPCS: 43239; 45385 ==

== ENCOUNTER 2024-05-31 14:29 | Outpatient (REF) | payer MEDICAID, SELFPAY ==
--- NOTE | ~2024-05-31 | XR_ITS ---
EXAMINATION: XR KNEE, LEFT CLINICAL INFORMATION: pain and swelling COMPARISON: None available. TECHNIQUE: Four views of the left knee. FINDINGS: Small marginal osteophyte formation in the posterior superior and inferior patella. No acute cortical disruption or malalignment. There is preservation of the joint spaces. No lytic or blastic lesions. No suprapatellar bursa joint effusion. Well-corticated calcifications, popliteal region. XR/XR knee LT 4V IMPRESSION: Mild osteoarthrosis, patellofemoral. Electronically signed by: Valentino Guerra MD 05/31/2024 03:02 PM EDT
--- NOTE | ~2024-05-31 | XR_ITS ---
EXAMINATION: XR KNEE, RIGHT CLINICAL INFORMATION: swelling COMPARISON: October 13, 2018 TECHNIQUE: Four views of the right knee. FINDINGS: Marginal osteophyte formation and femoral condyles. Marginal osteophyte formation in the posterior lateral patella. There is preservation of the joint space. No suprapatellar bursa joint effusion. No acute cortical disruption or malalignment. No lytic or blastic lesions. XR/XR knee RT 4V IMPRESSION: Mild osteoarthrosis, lateral compartment. Electronically signed by: Valentino Guerra MD 05/31/2024 03:01 PM EDT
== END 2024-05-31 14:30 | disposition home or self-care (01) ==
LOC: HO.HHCX 14:29
PROVIDERS: Visit Provider Nurse Practitioner
DX: M25.561 Pain in right knee (principal); M25.562 Pain in left knee; G89.29 Other chronic pain
CPT/HCPCS: 73564

== ENCOUNTER → 2024-05-31 14:29 | Outpatient (BNV) | payer MEDICAID, SELFPAY | PROVIDERS: Visit Provider Radiology Diagnostic Radiology | DX: M25.561 Pain in right knee (principal); M25.562 Pain in left knee | CPT/HCPCS: 73564 ==

== ENCOUNTER 2024-06-07 15:00 | Outpatient (RCR) | payer MEDICAID, SELFPAY ==
[2024-05-12 14:32] VITALS: BP 111/79; PULSE 95; RESP 20; TEMP 36.6; O2SAT 97
[2024-05-12] MEDS: Iron Sucrose Complex 200 MG/10 ML VIAL IVPUSH (14:42)
[2024-05-19 14:38] VITALS: BP 103/58; PULSE 76; RESP 20; TEMP 36.6; O2SAT 97
[2024-05-19] MEDS: Iron Sucrose Complex 200 MG/10 ML VIAL IVPUSH (14:43)
[2024-05-25 14:34] VITALS: BP 113/57; PULSE 84; RESP 14; TEMP 36.4; O2SAT 97
[2024-05-25] MEDS: Iron Sucrose Complex 200 MG/10 ML VIAL IVPUSH (14:45)
[2024-05-25] MEDS: 0.9 % Sodium Chloride Flush 10 ML SYRINGE 5 ML IVFLUSH (14:54)
[2024-06-02 14:19] VITALS: BP 94/45; PULSE 75; RESP 16; TEMP 36.1; O2SAT 96
[2024-06-02] MEDS: Iron Sucrose Complex 200 MG/10 ML VIAL IVPUSH (14:19)
[2024-06-07 15:04] VITALS: BP 111/70; PULSE 80; RESP 16; TEMP 36.7; O2SAT 97
[2024-06-07] MEDS: Iron Sucrose Complex 200 MG/10 ML VIAL IVPUSH (15:09)
== END 2024-06-07 15:17 | disposition home or self-care (01) ==
LOC: HO.INF 15:00
PROVIDERS: Visit Provider Internal Medicine
DX: E61.1 Iron deficiency (principal)
CPT/HCPCS: 96374; J1756

== ENCOUNTER 2024-06-11 13:57 | Outpatient (AMB) | payer MEDICAID, SELFPAY ==
--- NOTE | 2024-06-11 13:59 | MHC.OFFVIS ---
Vital Signs 06/11/24 14:01 Height 5 ft 3 in Weight 169 lb 12.095 oz BMI 30.1 BP 95/49 L Blood Pressure Location Lt brachial Position Sitting Pulse 72 Intake Visit Reasons: repeat colo; Dr. Gaston Intake Note: Corina presents in the office as a follow up colonoscopy. CC: Here today for results. She wants to discuss regarding the polyp the was removed. Allergies No Known Allergies [No Known Allergies*] Allergy (Verified 05/14/24 14:18) HPI Comments Details: 49 y.o F who is here for changes in bowel habits and rectal bleeding. Pt reports started noticing increased frequency of BMs which are softer and assoc with blood x2 months. Went to the ER for this in Nov and was told he has a fissure but does not report any discomfort on defecation. Also has to wake up at night time to defecate. Assoc with nausea, pain and increased flatulence and bloating. Appetite is ok, reports gaining weight. Has hx sleeve gastrectomy in 2018. Fam hx neg for CRC or IBD. Laboratory Tests 12/20/23 01:27 Hgb 13.3 Hct 38.3 05/27/24:EGD/colo 1. Normal esophagus 2. s/p sleeve gastrectomy anatomy 3. Normal gastric mucosa (biopsy) 3. Normal duodenum (biopsy) 4. Normal colon and terminal ileum mucosa (biopsy) 5. 1 polyp removed 6. Internal and external hemorrhoids Path: A. Duodenum, biopsy: Duodenal mucosa within normal limits. B. Stomach, biopsy: Antral-type and oxyntic mucosa with moderate chronic, focally active, inflammation; negative for H. pylori. C. Colon, right, biopsy: Colonic mucosa within normal limits. D. Colon, left, biopsy: Colonic mucosa within normal limits. E. Colon, sigmoid, polypectomy: Tubular adenoma; negative for high-grade dysplasia or carcinoma 06/11/24: Here for follow up. Reviewed the finding of tubular adenoma. Pt aware to return in 3 years. Also reviewed mild gastritis, will start on omeprazole x 8-12 weeks. [facility] Medical History (Updated 06/11/24 @ 14:29 by Darling Gaston MD) delivery delivered Depression Anal fissure Hemorrhoids Chronic RLQ pain Polyuria Dizziness FILIBERTO (obstructive sleep apnea) Moderate persistent asthma in adult without complication Chronic low back pain Iron deficiency Arthritis History of asthma Surgical History (Updated 06/11/24 @ 14:02 by KYREE Shelby) Hx of colonoscopy History of esophagogastroduodenoscopy (EGD) S/P laparoscopic sleeve gastrectomy H/O abdominoplasty Family History Mother History of hypertension Arthritis Glaucoma Father Heart problem History of hypertension Brother Heart problem History of hypertension Sister History of hypertension Brother No problems noted. Brother No problems noted. Brother No problems noted. Brother No problems noted. Sister Ovarian cancer Sister No problems noted. Sister No problems noted. Social History Household Members: Spouse and Children Housing: House Are you a primary home visit field care manager to a significant other at home: No Do you presently have visiting nurse or other home services: No Alcohol intake: current Alcohol intake frequency: holidays/special occasions only Patient Tobacco Use Status: Never used Tobacco service: No Current occupational status: employed Female Reproductive History Menstrual Age of Menarche: 14 Review of Systems Const All systems reviewed & are unremarkable except as noted in HPI and below Physical Exam Vital Signs: Last Vital Signs Pulse 72 06/11/24 14:01 BP 95/49 L 06/11/24 14:01 BMI result Body Mass Index 30.1 No apparent distress Nonicteric Abdomen soft, nondistended Alert and oriented x3, normal gait Assessment & Plan Assessment & Plan (1) Gastritis: Code(s): K29.70 - Gastritis, unspecified, without bleeding Category: Medical (2) Personal history of colonic polyps: Code(s): Z86.0100 - Personal history of colon polyps, unspecified Category: Medical Plan 1. Gastritis: No endoscopic abnl but path +. No H Pylori. Plan: - omeprazole 20 once daily 2. Hx of TA Given size, repeat recommended in 3 years. Follow up PRN Medications: New omeprazole 20 mg PO DAILY 90 caps 0RF K29.70 - Gastritis, unspecified, without bleeding Coding Level of Care Code Est Pt Level 3 (65194) Diagnoses Gastritis K29.70 Personal history of colonic polyps Z86.0100
[2024-06-11 14:01] VITALS: BP 95/49; PULSE 72; BMI 30.1
--- OUTSIDE RECORDS SUMMARY | 2024-06-11 16:16 | XMS_ITS | Encounter Summary ---
Author Organization [employer] [facility] Address [address] [place] [address] 7 [place] [address] Care Team Providers Care Account Collector Name Role Phone Marian Crook MD Primary Care Provider + Reason for Visit * Reason Comments Med Refill Encounter Details Date Type Department Care Team (Late Contact Info) Description 11/27/2023 Refill [facility] [address] [place] [address] [phone] Marian Crook MD [address] [place], [place] [phone] Social History Tobacco Use Types Packs/Day Years [...] Description 07/02/2024 11:45 AM EDT Office Visit [facility] [address] [place] [address] [phone] Marian Crook MD [address] [place], [place] [phone] documented as of this encounter Visit Diagnoses Not on filedocumented in this encounter Additional Health Concerns Assessment Noted Time PHQ-9 Depression Total Score: 16 023 3:25 PM EDT documented as of this encounter Care Teams Account Collector Relationship Specialty Start Date End Date Marian Crook MD [address] [place] [phone] PCP - General Internal Medicine 09/12/23 documented as of this encounter
--- OUTSIDE RECORDS SUMMARY | 2024-06-11 16:16 | XMS_ITS | Encounter Summary ---
Author Organization [employer] Address [address] [facility] [address] [place] [address] Care Team Providers Care Commercial Credit Head Name Role Phone Marian Crook MD Primary Care Provider + Reason for Visit * Reason Onset Date Comments Med Refill 03/25/2024 Encounter Details Date Type Department Care Team (Late st Contact Info) Description 03/25/2024 Refill [facility] [address] [place] [address] Claritza Leonard DO [address] [place] [address] Social History Tobacco Use Types Packs/Day Years [...] Description 07/02/2024 11:45 AM EDT Office Visit [facility] [address] [place] [address] Marian Crook MD [address] [place] [address] documented as of this encounter Visit Diagnoses Not on filedocumented in this encounter Additional Health Concerns Assessment Noted Time PHQ-9 Depression Total Score: 22 024 2:02 PM EDT documented as of this encounter Care Teams Commercial Credit Head Relationship Specialty Start Date End Date Marian Crook MD [address] [place] [phone] PCP - General Internal Medicine 09/12/23 documented as of this encounter
--- OUTSIDE RECORDS SUMMARY | 2024-06-11 16:16 | XMS_ITS | Encounter Summary ---
Author Organization [employer] Address [address] [facility] [address]t [place] [address] Care Team Providers Care Assistant Professor Of Marine Biology Name Role Phone Marian Crook MD Primary Care Provider + Reason for Visit * Reason Onset Date Comments Med Refill 03/25/2024 Encounter Details Date Type Department Care Team (Late st Contact Info) Description 03/25/2024 Refill [facility] [address] [place] [address] Marian Crook MD [address] [place] [address] Social History Tobacco Use Types Packs/Day Years [...] Description 07/02/2024 11:45 AM EDT Office Visit [facility] [address] [place] [address] Marian Crook MD [address] [place] [address] documented as of this encounter Visit Diagnoses Not on filedocumented in this encounter Additional Health Concerns Assessment Noted Time PHQ-9 Depression Total Score: 22 024 2:02 PM EDT documented as of this encounter Care Teams Assistant Professor Of Marine Biology Relationship Specialty Start Date End Date Marian Crook MD [address] [place] [id number] PCP - General Internal Medicine 09/12/23 documented as of this encounter
--- OUTSIDE RECORDS SUMMARY | 2024-06-11 16:16 | XMS_ITS | Encounter Summary ---
Author Organization [employer] Address [address] [facility] 7t [place] [address] Care Team Providers Care Seed Laboratory Assistant Name Role Phone Marian Crook MD Primary Care Provider + Reason for Visit * Reason Onset Date Comments Med Refill 03/25/2024 Encounter Details Date Type Department Care Team ([facility] st Contact Info) Description 03/25/2024 Refill [facility] [address] [place] [address] Marian Crook MD [address] [place] [address] Moderate persistent asthma without complication Social History [...] 07/02/2024 11:45 AM EDT Office Visit [facility] [address] [place] [phone] Marian Crook MD [address] [place] [address] documented as of this encounter Visit Diagnoses Diagnosis Moderate persistent asthma without complication documented in this encounter Additional Health Concerns Assessment Noted Time PHQ-9 Depression Total Score: 22 024 2:02 PM EDT documented as of this encounter Care Teams Seed Laboratory Assistant Relationship Specialty Start Date End Date Marian Crook MD [address] [place] [id number] PCP - General Internal Medicine 09/12/23 documented as of this encounter
--- OUTSIDE RECORDS SUMMARY | 2024-06-11 16:16 | XMS_ITS | Encounter Summary ---
Author Organization [employer] Address [address] [facility] [address] [place] [address] Care Team Providers Care Classroom Aide Name Role Phone Marian Crook MD Primary Care Provider + Reason for Visit * Reason Onset Date Comments Med Refill 03/25/2024 Encounter Details Date Type Department Care Team (Late st Contact Info) Description 03/25/2024 Refill [facility] [address] [place] [address] Claritza Leonard DO [address] [place] [address] Social History Tobacco Use Types Packs/Day Years [...] 11:45 AM EDT Office Visit [facility] [address] [place] [address] Marian Crook MD [address] [place] [address] documented as of this encounter Visit Diagnoses Not on filedocumented in this encounter Additional Health Concerns Assessment Noted Time PHQ-9 Depression Total Score: 22 024 2:02 PM EDT documented as of this encounter Care Teams Classroom Aide Relationship Specialty Start Date End Date Marian Crook MD [address] [place] [phone] PCP - General Internal Medicine 09/12/23 documented as of this encounter
--- OUTSIDE RECORDS SUMMARY | 2024-06-11 16:16 | XMS_ITS | Clinical Summary ---
Author Organization [employer] Address [address] [place] [address] 7[address] [place] [address] Care Team Providers Care Morning Show Newscast Producer Name Role Phone Marian Crook MD Primary [...] (twelve) hours. 30 g 12/23/19 24 Active venlafaxine XR (Effexor XR) 37.5 [...] 50 tablet 2 02/26/20 24 025 Active albuterol 108 (90 Base) MCG/ACT inhalerIndicati ons:Moderate persistent asthma without complication Inhale 2 puffs every 6 (six) hours if needed for shortness of breath or wheezing. 18 g 3 05/13/19 25 Active Diclofenac Sodium 1 % gelIndications: Chronic pain of both knees Apply 2 g topically if needed in the morning, at noon, in the evening, and at bedtime (pain). 150 g 2 05/29/19 25 Active meloxicam (Mobic) 7.5 MG tablet TAKE 1 TABLET BY MOUTH EVERY DAY 30 tablet 06/03/19 25 Active lidocaine (Lidoderm) 5 % patch APPLY 1 PATCH TOPICALLY ONCE PER DAY. REMOVE & DISCARD PATCH WITHIN 12 HOURS OR DIRECTED BY . 30 patch 2 06/08/19 25 Active baclofen (Lioresal) 10 MG tablet TAKE 1/2 TO 1 TABLET (5-10 MG) BY MOUTH 2 TIMES DAILY. 30 tablet 1 06/08/19 25 Active montelukast (Singulair) 10 MG tablet TAKE 1 TABLET BY MOUTH EVERY MORNING 90 tablet 1 06/08/19 25 Active cetirizine (ZyrTEC) 10 MG tablet TAKE 1 TABLET BY MOUTH EVERY DAY 90 tablet 06/08/19 25 Active montelukast (Singulair) 10 MG tablet TAKE 1 TABLET BY MOUTH EVERY MORNING 90 tablet 1 01/12/20 24 025 Discontinued(Re order (will not trigger notification to Pharmacy)) albuterol 108 (90 Base) MCG/ACT inhalerIndicati ons:Moderate persistent asthma without complication Inhale 2 puffs every 6 (six) hours if needed for shortness of breath or wheezing. 18 g 3 01/12/20 24 025 Discontinued(Re order (will not trigger notification to Pharmacy)) baclofen (Lioresal) 10 MG tablet Take 0.5-1 tablets (5-10 mg) by mouth 2 times daily. 30 tablet 1 02/26/20 24 025 Discontinued Diclofenac Sodium 1 % gel Apply 2 g topically if needed in the morning, at noon, in the evening, and at bedtime (pain). 150 g 2 02/26/20 24 025 Discontinued(Re order (will not trigger notification to Pharmacy)) lidocaine (Lidoderm) 5 % patch Apply 1 patch topically Once per day. Remove & discard patch within 12 hours or as directed by . 30 patch 2 02/26/20 24 025 Discontinued cetirizine (ZyrTEC) 10 MG tablet TAKE 1 TABLET BY MOUTH EVERY DAY 90 tablet 04/13/19 25 025 Discontinued(Re order (will not trigger notification to Pharmacy)) meloxicam (Mobic) 7.5 MG tablet TAKE 1 TABLET BY MOUTH EVERY DAY 30 tablet 05/07/19 25 025 Discontinued Active Problems Problem Noted Date [...] for this letter, she has appt with N next week. I told her to reach out to family and divorce legal assistant to help her write a letter so that housing give her some more time to get the letter from MH provider. She will res tart Effexor for anxiety and fu with me in 6m Encounters Date Type Department Care Team Description 06/05/2024 Refill [facility] [address] [place] [address] Marian Crook MD 06/05/2024 Refill [facility] [address] [place] [address] Claritza Leonard DO 06/04/2024 Population Health Risk Score [facility] ([facility] Department [address] [phone] Provider, Population Health Generic 06/02/2024 Telephone [facility] [address] [place] [address] Marian Crook MD Med Refill 06/02/2024 Telephone [facility] [address] [place] [address] Marian Crook MD Referral 06/02/2024 Refill [facility] [address] [place] [address] Marian Crook MD 05/28/2024 3:15 PM EST Office Visit [facility] [address] [place] [address] Tata Fink NP Chronic pain of both knees (Primary Dx) 05/26/2024 Telephone [facility] [address] [place] [address] Marian Crook MD Nurse Triage 05/13/2024 Refill [facility] [address] [place] [address] Marian Crook MD Moderate persistent asthma without complication 05/07/2024 Refill [facility] [address] [place] [address] Marian Crook MD 05/05/2024 Orders Only GENERIC EXTERNAL DATA DEPARTMENT Provider, Generic External Data 04/29/2024 Orders Only [facility] [address] [place] [address] Claritza Leonard DO Bilateral renal cysts (Primary Dx); Uterine leiomyoma, unspecified location; Excessive bleeding in premenopausal period 04/29/[address] [facility] [address] [place] [address] Marian Crook MD Nurse Triage 04/27/2024 Orders Only GENERIC EXTERNAL DATA DEPARTMENT Provider, Generic External Data 04/26/2024 Orders Only GENERIC EXTERNAL DATA DEPARTMENT Provider, Generic External Data 04/26/[address] [address] Lina Yarbrough, [place] Results 04/23/[address] [address] Marian Crook MD June recall 04/13/2024 Refill [facility] [address] [place] [address] Marian Crook MD 04/09/2024 Orders Only [facility] [address] [place] [address] Claritza Leonard DO Abnormal MRI, lumbar spine (Primary Dx) 03/30/[address] [address] Marian Crook MD Results 03/30/[address] [address] Marian Crook MD Stable Imaging Letter 03/30/[address] [address] Marian Crook MD Call Back Requested 03/27/2024 Orders Only GENERIC EXTERNAL DATA DEPARTMENT Provider, Generic External Data 03/26/2024 Orders Only [facility] External Provider, [facility] 03/25/2024 Refill [facility] [address] [place] [address] Marian Crook MD Moderate persistent asthma without complication 03/25/2024 Refill [facility] [address] [place] [address] Marian Crook MD 03/25/2024 Refill [facility] [address] [place] [address] Claritza Leonard, DO 03/25/2024 Refill [facility] [address] [place] [address] Claritza Leonard, DO 03/22/2024 Telephone [facility] [address] [place] [address] Claritza Leonard, DO 03/19/2024 Telephone [facility] [address] [place], [place] [phone] Marian Crook MD Results from Last 3 Months Immunizations Name Administration [...] Sign Reading Time Taken Comments Blood Pressure 112/71 05/28/2024 3:18 PM EST Pulse 89 05/28/2024 3:18 PM EST Temperature 36.2 ??C (97.2 ??F) 05/28/2024 3:18 PM ES T Respiratory Rate 22 05/28/2024 3:18 PM EST Oxygen Saturation 96% 05/28/2024 3:18 PM EST Inhaled Oxygen Concentration - - Weight 78.4 kg (172 lb 12.8 oz) 05/28/2024 3:18 PM EST Height 160 cm (5' 3 ) 05/28/2024 3:18 PM EST Body Mass Index 30.61 05/28/2024 3:18 PM EST Plan of Treatment Upcoming Encounters Date Type Department Care Team (Late st Contact Info) Description 07/02/2024 11:45 AM EDT Office Visit [facility] [address] [place] [address] Marian Crook MD [address] [place] [address] Health Maintenance Due Date Last Done Comments [...] Name Priority Date/Time Associated Diagnosis Comments XR KNEE 4+ VIEWS LEFT Routine 05/31/2024 2:29 PM EDT Chronic pain of both knees XR KNEE 4+ VIEWS RIGHT Routine 2:29 PM EDT Chronic pain of both knees LH Routine 05/05/2024 11:23 AM EST [facility] [...] BINDING CAPACITY Routine 03/27/2024 10:19 AM EST LAB COLOGUARD?? COLON CANCER SCREEN Routine 02/02/2024 9:15 AM EST Screening for colorectal cancer BI MAMMOGRAM SCREENING TOMOSYNTHESIS BILATERAL Routine 12/05/2023 3:30 PM EDT Screening mammogram for breast cancer from Last 3 Months or Most Recently Relevant to Health Maintenance Results * XR Knee 4+ Views Right (05/31/2024 2:29 PM EDT) Anatomical Region Laterality Modality Lower Extremities, Knee Right Radiogra psychiatric Imaging 05/31/2024 2:29 PM EDT Narrative 05/31/2024 3:04 PM EDT ?[facility] ?[address] ?[place] [address] ?XRay Report ? Signed ? Patient: Jose Alberto James,Corina ?MR#: [id number] ?? [id number] ? : 1975 ?Acct:[id number] ? Age/Sex: 49 / F ?ADM Date: 03/10/25 ? Loc: HO.HHCX ? Attending Dr: Tata Fink ? Ordering Physician: Tata Fink ?? Date of Service: 05/31/24 ?? Procedure(s): XR knee RT 4V ?? Accession Number(s): [id number] ? cc: Tata Fink ? EXAMINATION: ?? XR KNEE, RIGHT ? CLINICAL INFORMATION: ?? swelling ? COMPARISON: ?? October 13, 2018 ? TECHNIQUE: ?? Four views of the right knee. ? FINDINGS: ?? Marginal osteophyte formation and femoral condyles. ?? Marginal osteophyte formation in the posterior lateral patella. ?? There is preservation of the joint space. ?? No suprapatellar bursa joint effusion. ?? No acute cortical disruption or malalignment. ?? No lytic or blastic lesions. ? XR/XR knee RT 4V ?? IMPRESSION: ?? Mild osteoarthrosis, lateral compartment. ? Electronically signed by: ??Vaelntino Guerra MD ??05/31/2024 03:01 PM ?? EDT RP ? Dictated By: ?Valentino Cotter MD ? Signed By: ?<Electronically signed by Valentino Jones MD in OV> ? 05/31/24 1501 ? DD/ 1429 ? TD/TT: 05/31/24 1455 ? Heavy Coil Winder: ? Procedure Note Bonita, Image - 05/31/[address] [address] XRay Report Signed Patient: Baljit NielsenJustina#: [id number] : 1975Acct:[id number] Age/Sex: 49 / FADM Date: 05/31/24 Loc: HO.HHCX Attending Dr: Tata Fink Ordering Physician: Tata Fink Date of Service: 05/31/24 Procedure(s): XR knee RT 4V Accession Number(s): [id number] cc: Tata Fink EXAMINATION: XR KNEE, RIGHT CLINICAL INFORMATION: swelling COMPARISON: October 13, 2018 TECHNIQUE: Four views of the right knee. FINDINGS: Marginal osteophyte formation and femoral condyles. Marginal osteophyte formation in the posterior lateral patella. There is preservation of the joint space. No suprapatellar bursa joint effusion. No acute cortical disruption or malalignment. No lytic or blastic lesions. XR/XR knee RT 4V IMPRESSION: Mild osteoarthrosis, lateral compartment. Electronically signed by: Valentino Guerra MD 05/31/2024 03:01 PM EDT RP Dictated By: Valentino Cotter MD Signed By: <Electronically signed by Valentino Jones MDin OV> 05/31/24 1501 DD/ 1429 TD/TT: 05/31/24 1455 Heavy Coil Winder: Tata Fink NP IMG XR PROCEDURES Final Result * XR Knee 4+ Views Left (05/31/2024 2:29 PM EDT) Anatomical Region Laterality Modality Lower Extremities, Knee Left Radiogra phic Imaging 05/31/2024 2:29 PM EDT Narrative 05/31/2024 3:05 PM EDT ?[facility] ?[address] ?[place] [address] ?XRay Report ? Signed ? Patient: Corina Nielsen ?MR#: [id number] ?? [id number] ? : 1975 ?Acct:[id number] ? Age/Sex: 49 / F ?ADM Date: 05/31/24 ? Loc: HO.HHCX ? Attending : Tata Fink ? Ordering Physician: Tata Fink ?? Date of Service: 05/31/24 ?? Procedure(s): XR knee LT 4V ?? Accession Number(s): [id number] ? cc: Tata Fink ? EXAMINATION: ?? XR KNEE, LEFT ? CLINICAL INFORMATION: ?? pain and swelling ? COMPARISON: ?? None available. ? TECHNIQUE: ?? Four views of the left knee. ? FINDINGS: ?? Small marginal osteophyte formation in the posterior superior and ?? inferior patella. No acute cortical disruption or malalignment. There ?? is preservation of the joint spaces. No lytic or blastic lesions. No ?? suprapatellar bursa joint effusion. Well-corticated calcifications, ?? popliteal region. ? XR/XR knee LT 4V ?? IMPRESSION: ?? Mild osteoarthrosis, patellofemoral. ? Electronically signed by: ??Valentino Guerra MD ??05/31/2024 03:02 PM ?? EDT RP ? Dictated By: ?Valentino Cotter MD ? Signed By: ?<Electronically signed by Valentino Jones MD in OV> ? 05/31/24 1502 ? DD/ 1429 ? TD/TT: 05/31/24 1455 ? Heavy Coil Winder: ? Procedure Note Donlolly, Carli - 05/31/[address] [address] XRay Report Signed Patient: Yarelis Nielsen#: [id number] : 1975Acct:[id number] Age/Sex: 49 / FADM Date: 05/31/24 Loc: HO.HHCX Attending Dr: Tata Fink Ordering Physician: Tata Fink Date of Service: 05/31/24 Procedure(s): XR knee LT 4V Accession Number(s): [id number] cc: Tata Fink EXAMINATION: XR KNEE, LEFT CLINICAL INFORMATION: pain and swelling COMPARISON: None available. TECHNIQUE: Four views of the left knee. FINDINGS: Small marginal osteophyte formation in the posterior superior and inferior patella. No acute cortical disruption or malalignment. There is preservation of the joint spaces. No lytic or blastic lesions. No suprapatellar bursa joint effusion. Well-corticated calcifications, popliteal region. XR/XR knee LT 4V IMPRESSION: Mild osteoarthrosis, patellofemoral. Electronically signed by: Valentino Guerra MD 05/31/2024 03:02 PM EDT Dictated By: Valentino Cotter MD Signed By: <Electronically signed by Valentino Jones MDin OV> 05/31/24 1502 DD/ 1429 TD/TT: 05/31/24 1455 Heavy Coil Winder: us Tata Alanm DIRECTOR OF ONLINE EDUCATION IMG XR PROCEDURES Final Result * TSH with Reflex to Free T4 (05/05/2024 11:23 AM EST) Only the most recent of2 resultswithin the time period is included. TSH reflex Free T4 0.78 0.32 - 4.0 uIU/mL [facility] 05/05/2024 11:2 3 AM EST 05/05/2024 11:23 AM EST us Generic External Data Provider LAB BLOOD ORDERAB LES Final Result Performing Organization Address City/State/[facility] Co de Phone Number [facility] [address] [place] [phone] * (ABNORMAL) CBC (05/05/2024 11:23 AM EST) White Blood Count 5.5 4.8 - 10.8 X10*3/uL [facility] Red Blood Count 3.92(L) 4.20 - 5.50 X10*6/uL [facility] Hemoglobin 12.0 12.0 - 16.0 g/dl [facility] Hematocrit 36.3(L) 37.0 - 47.0 % [facility] Mean Corpuscular Volume 92.6 80.0 - 98.0 fL [facility] Mean Corpuscular Hemoglobin 30.6 27.0 - 33.0 pg [facility] Mean Corpuscular HGB Conc 33.1 31.0 - 35.0 g/dl [facility] Red Cell Distribution Width 12.3 11.0 - 16.0 % [facility] Platelet Count 264 160 - 400 X10*3/uL [facility] Mean Platelet Volume 11.1 9.4 - 12.3 fL [facility] NRBC Pct Auto 0.0 0.0 - 0.2 /100WBC [facility] NRBC Abs Auto 0.000 0.0 - 0.012 X10*3/uL [facility] 05/05/2024 11:2 3 AM EST 05/05/2024 11:23 AM EST Generic External Data Provider LAB BLOOD ORDERAB LES Final Result Performing Organization Address City/[facility]/ZIP Co de Phone Number [facility] [address] [place] [phone] * hCG, Total, Quantitative (05/05/2024 11:23 AM EST) HCG Quantitative <2 mIU/mL [facility] Comment:Weeks post LMP Appro ximate hCG(Last Menstrual Period) Range (mIU/ml)3 - 4 weeks 9 - 1304 - 5 weeks 75 - 2,6005 - 6 weeks 850 - 20,8006 - 7 weeks 4000 - 100,2007 - 12 weeks 11,500 - 289,93510 - 16 weeks 18,300 - 137,79542 - 29 weeks (2nd trimester) 1,400 - 53,86711 - 41 weeks (3rd trimester) 940 - 60,000The Thomason B-hCG assay is used for the early detection ofpregnancy; it cannot be used to diagnose any conditionunrelated to . If a B-hCG level is not supportedby the clinical evidence, results should be confirmed by analternative method (qualitative urine hCG, for example). 05/05/2024 11:2 3 AM EST 05/05/2024 11:23 AM EST Generic External Data Provider LAB BLOOD ORDERAB LES Final Result Performing Organization Address City/[facility]/ZIP Co de Phone Number [facility] [address] [place] [phone] * LH (05/05/2024 11:23 AM EST) Lutenizing Hormone 7.8 mIU/mL [facility] Comment:Reference Range Foll icular Phase 1.9-12.5 Mid-Cycle Peak 8.7-76.3 Luteal Phase 0.5-16.9 Postmenopausal 10.0-54.7THIS TEST WAS PERFORMED AT:[employer] [address] [phone] OLIVAS MD 05/05/2024 11:2 3 AM EST 05/05/2024 11:23 AM EST Generic External Data Provider LAB BLOOD ORDERAB LES Final Result Performing Organization Address [facility] de Phone Number [facility] [address] [place] [phone] * FSH (05/05/2024 11:23 AM EST) [facility] Follicle Stimulating Hormone 14.4 mIU/mL [facility] Comment:Reference Range Foll icular Phase 2.5-10.2 Mid-cycle Peak 3.1-17.7 Luteal Phase 1.5- 9.1 Postmenopausal 23.0-116.3THIS TEST WAS PERFORMED AT:[employer] [address] [id number] OLIVAS MD 05/05/2024 11:2 3 AM EST 05/05/2024 11:23 AM EST Generic External Data Provider LAB BLOOD ORDERAB LES Final Result Performing Organization Address [facility] de Phone Number [facility] [address] [place] [phone] * Chlamydia/N. Gonorrhoeae RNA, TMA, Urogenitial (05/05/2024 11:19 AM EST) Pathologist [facility] CT PCR NOT DETECTED Not Detect. [facility] Comment:A not detected test result does [...] psychologicalconsequences. NG PCR NOT DETECTED Not Detect. [facility] Comment:A not detected test result does [...] AM EST 05/05/2024 11:56 AM EST Narrative [facility] - 05/06/2024 7:21 AM EST Vaginal us Generic External Data Provider LAB MICROBIOLOGY - GENERAL ORDERABLES Final Result [facility] [address] [place] [phone] * HPV DNA, Low/High Risk (05/05/2024 10:22 AM EST) HPV High Risk Negative Negative [facility] HPV Genotype 16 Negative Negative [facility] HPV Genotype 18 Negative Negative [facility] Comment:HPV testing performe d at [facility] (CLIA#[id number]), [address] [place] [phone].Testing for HPV was performed using the [employer]system. The presence of HPV in the female [...] ORDERAB LES Final Result Performing Organization Address City/State/[facility] Co de Phone Number [facility] [address] [place] [phone] * Pap Smear (05/05/2024 10:22 AM EST) 05/05/2024 10:2 2 AM EST 05/06/2024 6:10 AM EST Narrative [facility] - 05/11/2024 9:16 AM EST ----- ------- Name: Corina Nielsen ?Age/Sex: 49/F ? : 1975 Unit#: [id number] ?? Attend Dr: Pj Posadas MD ?Re05/05/24 ?Status: DEP REF ? Location: HO.LNP ?Disch: ? ----- ------- SPEC : [id number] ? RECD: 05/06/24 ? STATUS: ??SOUT ? REQ NUM: [id number] ? LAURA: 05/05/24 ? SUBM DR: Pj [...] To: ?? Marian Crook MD ?? [facility] ?? [address] ?? [place] [address] ?? [phone] ?? Pj Posadas MD ?? [facility] ?? [address] ?? [place] [address] ?? [phone] ----- ------- Signed (signature on file) SCARLET Hernandez ([facility]) 05/11/[address] ? ----- ------- ? END OF REPORT ? us Generic External Data Provider LAB CYTOLOGY SHONA VIRAMONTES Final Result [facility] [address] [place] [phone] * (ABNORMAL) Urinalysis, Complete, with Reflex to Culture (04/27/2024 12:31 AM EST) Color Urine Yellow [facility] Appearance Urine Clear [facility] PH 5.5 5.0 - 9.0 [facility] Glucose Urine UA Negative Negative mg/dL [facility] Urine Blood Moderate (2+)(A) Negative [facility] Specific [place] - Urine 1.020 1.005 - 1.025 [facility] Urine Protein Negative Neg-Trace mg/dL [facility] Urine Ketones Negative Negative mg/dL [facility] Nitrite Urine Negative Negative [facility] Leukocyte Esterase Urine Negative Negative [facility] RBC Urine >20(A) 0 - 2 /HPF [facility] Urine WBC 0-5 0 - 5 /HPF [facility] Urine Squamous Epithelial Cell 0-2 0 - 2 /HPF [facility] Urine Bacteria None Seen None Seen [facility] Hyaline Casts, Urine 0-2 0 - 2 /LPF [facility] 04/27/2024 12:3 1 AM EST 04/27/2024 12:34 AM EST Narrative [facility] - 04/27/2024 12:42 AM EST Urine, Clean Catch us Generic External Data Provider LAB URINE ORDERAB LES Final Result Performing Organization Address City/State/[facility] Co de Phone Number [facility] [address] [place] [phone] * (ABNORMAL) CBC auto differential (04/26/2024 4:47 PM EST) White Blood Count 6.0 4.8 - 10.8 X10*3/uL [facility] Red Blood Count 4.05(L) 4.20 - 5.50 X10*6/uL [facility] Hemoglobin 12.4 12.0 - 16.0 g/dl [facility] Hematocrit 37.7 37.0 - 47.0 % [facility] Mean Corpuscular Volume 93.1 80.0 - 98.0 fL [facility] Mean Corpuscular Hemoglobin 30.6 27.0 - 33.0 pg [facility] Mean Corpuscular HGB Conc 32.9 31.0 - 35.0 g/dl [facility] Red Cell Distribution Width 12.3 11.0 - 16.0 % [facility] Platelet Count 269 160 - 400 X10*3/uL [facility] Mean Platelet Volume 10.9 9.4 - 12.3 fL [facility] Neutrophils Percent Auto 55.1 45 - 73 % [facility] Imm Gran Pct Auto 0.0 0.0 - 0.4 % [facility] Lymphocytes Percent Auto 29.4 20 - 40 % [facility] Monocytes Percent Auto 10.6 2 - 11 % [facility] Eosinophils Percent Auto 3.9 0 - 4 % [facility] Basophils Percent Auto 1.0 0 - 2 % [facility] NRBC Pct Auto 0.0 0.0 - 0.2 /100WBC [facility] Neutrophils Absolute Auto 3.3 2.0 - 8.3 x10*3/uL [facility] Imm Gran Abs Auto 0.00 0.00 - 0.03 X10*3/uL [facility] Lymphocytes Absolute Auto 1.8 1.2 - 4.9 X10*3/uL [facility] Monocytes Absolute Auto 0.6 0.1 - 1.2 X10*3/uL [facility] Eosinophils Absolute Auto 0.2 0.0 - 0.4 X10*3/uL [facility] Basophils Absolute Auto 0.1 0.0 - 0.2 X10*3/uL [facility] NRBC Abs Auto 0.000 0.0 - 0.012 X10*3/uL [facility] 04/26/2024 4:47 PM EST 04/26/2024 4:50 PM EST us Generic External Data Provider LAB BLOOD ORDERAB LES Final Result [facility] [address] [place] [phone] * Partial Thromboplastin Time, Activated (APTT) (04/26/2024 4:47 PM EST) Partial Thromboplastin Time 31.7 26.0 - 36.8 SEC [facility] Comment:For information rega rding the monitoring of direct thrombininhibitors, please refer to Pharmacy. 04/26/2024 4:47 PM EST 04/26/2024 4:50 PM EST us Generic External Data Provider LAB BLOOD ORDERAB LES Final Result Performing Organization Address [facility]/ZIP Co de Phone Number [facility] [address] [place] [phone] * Prothrombin Time-INR (04/26/2024 4:47 PM EST) Prothrombin Time 12.0 10.9 - 12.4 SEC [facility] INTERNATIONAL NORM RATIO 1.0 0.9 - 1.1 [facility] Comment:INTERNATIONAL NORMAL IZED RATIO (INR) REFERENCE [...] ORDERAB LES Final Result Performing Organization Address [facility] Co de Phone Number [facility] [address] [place] [phone] * Magnesium (04/26/2024 4:47 PM EST) Magnesium 1.9 1.6 - 2.6 mg/dL [facility] 04/26/2024 4:47 PM EST 04/26/2024 4:50 PM EST Generic External Data Provider LAB BLOOD ORDERAB LES Final Result Performing Organization Address [facility] Co de Phone Number [facility] [address] [place] [phone] * (ABNORMAL) Comprehensive Metabolic Panel (04/26/2024 4:47 PM EST) Sodium 140 135 - 145 mmol/L [facility] Potassium 4.1 3.3 - 5.1 mmol/L [facility] Chloride 108 96 - 108 mmol/L [facility] Carbon Dioxide 28 22 - 29 mmol/L [facility] Anion Gap 8(L) 12 - 20 [facility] Urea Nitrogen (BUN) 17(H) 9 - 16 mg/dL [facility] Creatinine, Serum 0.78 0.5 - 1.4 mg/dL [facility] Creatinine Clr Calc Pharmacy 84.2 [facility] Comment:Provided height and weight: 157.48 cm,77.8 kg.eGFR (calculated from the MDRD study equation) and eCrCl(calculated from the Cockcroft-Gault equation) are based ondifferent parameters and may not yield comparable results.If eCrCl result is absurd, please check patient'sheight/weight. Estimated Glomerular Filt Rate >60 [facility] Comment:Chronic Kidney Disea se: Estimated GFR < 60 mL/min/1.15m9Qjdlsy Kidney Disease: Estimated GFR < 15 mL/min/1.73m2 Glucose 80 60 - 115 mg/dL [facility] Calcium 9.0 8.4 - 10.2 mg/dL [facility] Bilirubin, Total 0.3 0.0 - 1.0 mg/dL [facility] Aspartate Amino Transferase 21 5 - 31 U/L [facility] Alanine Aminotransferase 14 0 - 31 U/L [facility] Total Protein 7.6 6.5 - 8.0 g/dL [facility] Albumin Level 4.1 3.5 - 5.0 g/dL [facility] Alkaline Phosphatase 72 39 - 117 U/L [facility] 04/26/2024 4:47 PM EST 04/26/2024 4:50 PM EST us Generic External Data Provider LAB BLOOD ORDERAB LES Final Result [facility] [address] [place] [phone] * US RENAL BI (04/21/2024 12:04 PM EST) Anatomical Region Laterality Modality Abdomen Ultrasound 04/21/2024 12:0 4 PM EST Narrative 04/21/2024 12:05 PM EST ? [facility] ?[address] ?[place] [address] ? Ultrasound Report ? Signed ? Patient: Abrams James,Corina ?MR#: [id number] ?? [id number] ? : 1975 ?Acct:[id number] ? Age/Sex: 49 / F ?ADM Date: 04/20/24 ? Loc: HO.US ? Attending Dr: Claritza Leonard DO ? Ordering Physician: Claritza Leonard DO ?? Date of Service: 04/20/24 ?? Procedure(s): US renal BI ?? Accession Number(s): [id number] ? cc: Claritza Leonard DO ? CLINICAL [...] DD/ 1204 ? TD/TT: 04/21/24 1204 ? Heavy Coil Winder: ? Procedure Note Carli Mesa - 04/21/[address] [address] Ultrasound Report Signed Patient: Yarelis Nielsen#: [id number] : 1975Acct:[id number] Age/Sex: 49 / FADM Date: 04/20/24 Loc: HO.US Attending Dr: Claritza Leonard DO Ordering Physician: Claritza Leonard DO Date of Service: 04/20/24 Procedure(s): US renal BI Accession Number(s): [id number] cc: Claritza Leonard DO CLINICAL HISTORY: probable [...] 04/21/24 1204 DD/ 1204 TD/TT: 04/21/24 1204 Heavy Coil Winder: us Claritza Leonard DO IMG US PROCEDURES Edited Res ult - Final * US Pelvis Transvaginal (04/20/2024 3:25 PM EST) Anatomical Region Laterality Modality Pelvis Ultrasound 04/20/2024 3:25 PM EST Narrative 04/21/2024 9:28 AM EST ? [facility] ?[address] ?[place] [address] ? Ultrasound Report ? Signed ? Patient: Abrams James,Corina ?MR#: [id number] ?? [id number] ? : 1975 ?Acct:[id number] ? Age/Sex: 49 / F ?ADM Date: 01/28/25 ? Loc: HO.US ? Attending Dr: Claritza Leonard DO ? Ordering Physician: Claritza Leonard DO ?? Date of Service: 04/20/24 ?? Procedure(s): US pelvic and transvaginal ?? Accession Number(s): [id number] ? cc: Claritza Leonard DO ? EXAMINATION: [...] DD/ 1525 ? TD/TT: 04/20/24 1555 ? Heavy Coil Winder: ? Procedure Note Donotuseinterpreter, Image - 04/21/[address] [address] Ultrasound Report Signed Patient: Yarelis Nielsen#: [id number] : 1975Acct:[id number] Age/Sex: 49 / FADM Date: 04/20/24 Loc: HO.US Attending Dr: Claritza Leonard DO Ordering Physician: Claritza Leonard DO Date of Service: 04/20/24 Procedure(s): US pelvic and transvaginal Accession Number(s): [id number] cc: Claritza Leonard DO EXAMINATION: US PELVIS [...] by: Valentino Guerra MD 04/21/2024 09:26 AM [facility] Dictated By: Valentino Cotter MD Signed By: <Electronically signed by Valetnino Jones MDin OV> 04/21/24 0926 DD/ 1525 TD/TT: 04/20/24 1555 Heavy Coil Winder: us Claritza Leonard DO IMG US PROCEDURES Edited Res ult - Final * XR Hip 2 or 3 Views Left (03/29/2024 1:06 PM EST) Anatomical Region Laterality Modality Lower Extremities, Hip Left Radiograp hic Imaging 03/29/2024 1:06 PM EST Narrative 03/29/2024 1:08 PM EST ? [facility] ?[address] ?[place] [address] ?XRay Report ? Signed ? Patient: Abrams James,Corina ?MR#: [id number] ?? [id number] ? : 1975 ?Acct:[id number] ? Age/Sex: 49 / F ?ADM Date: 03/26/24 ? Loc: HO.XRAY ? Attending Dr: Jada CLEMENT ? Ordering Physician: Jada Cervantes ?? Date of Service: 03/26/24 ?? Procedure(s): XR hip LT min 2V w/wo pel ?? Accession Number(s): [id number] ? cc: Jada Cervantes; Marian Crook MD [...] DD/ 1306 ? TD/TT: 03/29/24 1306 ? Heavy Coil Winder: ? Procedure Note Carli Mesa - 03/29/[address] [place] [address] XRay Report Signed Patient: Yarelis Nielsen#: [id number] : 1975Acct:[id number] Age/Sex: 49 / FADM Date: 03/26/24 Loc: BARBARA Attending Dr: Jada CLEMENT Ordering Physician: Jada Cervantes Date of Service: 03/26/24 Procedure(s): XR hip LT min 2V w/wo pel Accession Number(s): [id number] cc: Jada Cervantes; Marian Crook MD CLINICAL [...] 03/29/24 1307 DD/ 1306 TD/TT: 03/29/24 1306 Heavy Coil Winder: [facility] External Provider IMG XR PROCEDURES Edited Result - Final * Hepatitis C Ab (03/27/2024 10:19 AM EST) Pathologist [facility] Hepatitis C Antibody Nonreactive Nonreactive [facility] Comment:Antibodies to HCV no t detected; does not exclude early acuteHCV infection. 03/27/2024 10:1 9 AM EST 03/27/2024 10:19 AM EST Generic External Data Provider LAB BLOOD ORDERAB LES Final Result [facility] [address] [place] [phone] * (ABNORMAL) Iron And Total Iron Binding Capacity (03/27/2024 10:19 AM EST) Iron 298(H) 30 - 160 mcg/dL [facility] Total Iron Binding Capacity 323 228 - 428 mcg/dL [facility] Percent Iron Saturation 92(H) 15 - 50 % [facility] Unsaturated Iron Binding <25 ug/dL [facility] 03/27/2024 10:1 9 AM EST 03/27/2024 10:19 AM EST us Generic External Data Provider LAB BLOOD ORDERAB LES Final Result Performing Organization Address [facility] Co de Phone Number [facility] [address] [place] [phone] [phone] * Hepatitis A Antibody, Total (03/27/2024 10:19 AM EST) Hepatitis A Antibody IgG Nonreactive Nonreactive [facility] 03/27/2024 10:1 9 AM EST 03/27/2024 10:19 AM EST us Generic External Data Provider LAB BLOOD ORDERAB LES Final Result Performing Organization Address [facility] Phone Number [facility] [address] [place] [phone] * Tissue Transglutaminase Antibody, IgA (03/27/2024 10:19 AM EST) Transglutaminase IgA <1.0 U/mL [facility] Comment:Value Interpretation ----- <15.0 Antibody not detected> or = 15.0 Antibody detectedTHIS TEST WAS PERFORMED AT:[facility] [place] [phone] OLIVAS MD 03/27/2024 10:1 9 AM EST 03/27/2024 10:19 AM EST us Generic External Data Provider LAB BLOOD ORDERAB LES Final Result Performing Organization Address [facility] Co de Phone Number [facility] [address] [place] [address] [phone] * Hepatitis B surface antigen, EIA (03/27/2024 10:19 AM EST) Hepatitis B Surface Ag Negative Negative [facility] 03/27/2024 10:1 9 AM EST 03/27/2024 10:19 AM EST Generic External Data Provider LAB BLOOD ORDERAB LES Final Result [facility] [address] [place] [phone] * Hepatitis B Core Antibody, Total (03/27/2024 10:19 AM EST) Pathologist [facility] Hepatitis B Core Antibody Nonreactive Nonreactive [facility] 03/27/2024 10:1 9 AM EST 03/27/2024 10:19 AM EST Generic External Data Provider LAB BLOOD ORDERAB LES Final Result Performing Organization Address City/[facility]/ZIP Co de Phone Number [facility] [address] [place] [phone] * HIV-1/2 Antigen and Antibodies, Fourth Generation, with Reflexes (03/27/2024 10:19 AM EST) HIV AB/AG Nonreactive Nonreactive [facility] Comment:HIV-1 p24 Ag and/or HIV-1/HIV-2 Ab not detected.A test result that is nonreactive does not exclude thepossibility of exposure to or infection with HIV-1 and/orHIV-2. Nonreactive results in this assay for individualswith prior exposure to HIV-1 and/or HIV-2 may be due toantigen and antibody levels that are below the limit ofdetection of this assay.The [employer] HIV Ag/Ab Combo assay result andsupplemental assay results should be interpreted inconjunction with the patient's clinical presentation,history and other laboratory results. If the results areinconsistent with clinical evidence, additional testing issuggested to confirm the result. 03/27/2024 10:1 9 AM EST 03/27/2024 10:19 AM EST Generic External Data Provider LAB BLOOD ORDERAB LES Final Result Performing Organization Address [facility] Co de Phone Number [facility] [address] [place] [phone] * Hepatitis B Surface Antibody, Qualitative (03/27/2024 10:19 AM EST) ~Hepatitis B Surface Antibody REACTIVE Nonreactive [facility] Comment:REACTIVE: > 11.99 mI U/mL 03/27/2024 10:1 9 AM EST 03/27/2024 10:19 AM EST Generic External Data Provider LAB BLOOD ORDERAB LES Final Result Performing Organization Address [facility] de Phone Number [facility] [address] [place] [phone] * C-reactive Protein (03/27/2024 10:19 AM EST) Pathologist [facility] C Reactive Protein <0.04 < or = 0.50 mg/dL [facility] 03/27/2024 10:1 9 AM EST 03/27/2024 10:19 AM EST Generic External Data Provider LAB BLOOD ORDERAB LES Final Result Performing Organization Address [facility] de Phone Number [facility] [address] [place] [phone] * Immunoglobulin A (03/27/2024 10:19 AM EST) Immunoglobulin A 269 47 - 310 mg/dL [facility] Comment:THIS TEST WAS PERFOR MED AT:[facility] [place] [phone] OLIVAS MD 03/27/2024 10:1 9 AM EST 03/27/2024 10:19 AM EST us Generic External Data Provider LAB BLOOD ORDERAB LES Final Result Performing Organization Address City/[facility]/ZIP Co de Phone Number [facility] [address] [place] [phone] * Ferritin (03/27/2024 10:19 AM EST) Ferritin 12 10 - 250 ng/mL [facility] 03/27/2024 10:1 9 AM EST 03/27/2024 10:19 AM EST Generic External Data Provider LAB BLOOD ORDERAB LES Final Result Performing Organization Address [facility] de Phone Number [facility] [address] [place] [phone] * Cologuard?? colon cancer screening (02/02/2024 9:15 AM EST) Cologuard Result Negative Negative 02/08/20 2:05 AM EST [facility] (CLIA #:[id number]) Comment: NEGATIVE TEST RESULT. A negative Cologuard [...] cancer. ??Following a negative Cologuard result, the [place] [employer] and U.S. Multi-Society Task Force screening guidelines recommend a Cologuard re-screening interval of 3 years. References: [place] [employer] Guideline for Colorectal Cancer Screening: https://www.cancer.org/cancer/gixtm-lrjexy-eyejrc/inxzdiufg-fjjojzueh-wxwmfmm/ac s-rec ommendations.html.; Hector DK, Julio Cesar PEÑA, Janet TroncosoK, Colorectal Cancer Screening: Recommendations for Physicians and Patients from the U.S. Multi-Society Task Force on Colorectal Cancer Screening , Am J Gastroenterology 2017; 112:7446-8238. TEST DESCRIPTION: Composite algorithmic analysis of stool [...] screened with both Cologuard and colonoscopy. (Isadora Gonzalez et al, N Engl J Med 2014;370(14):3886-2830.) Cologuard may produce a false negative or false positive result (no colorectal cancer or precancerous polyp present at colonoscopy follow up). A negative Cologuard test result does not guarantee the absence of CRC or advanced adenoma (pre-cancer). The current Cologuard screening interval is every 3 years. ([place] [employer] and U.S. Multi-Society Task Force). Cologuard performance data in a 10,000 patient pivotal study using colonoscopy as the reference method can be accessed at the following location: www.Piqniq.TastingRoom.com/results. Additional description of the Cologuard test process, warnings and precautions can be found at www.cologThe Mark Newsrd.com. Stool specimen (specimen) Rectal contents / Unknown 02/02/2024 9:15 AM EST 02/03/2024 10:52 AM EST us Marian Crook MD LAB MOLECULAR DIAGNOSTIC S ORDERABLES Final Result [facility] (CLIA #:[id number]) [place] [address] [address], * BI Mammogram Screening Tomosynthesis Bilateral (12/05/2023 3:30 PM EDT) Anatomical Region Laterality Modality Breast Bilateral Mammography 12/05/2023 3:30 PM EDT Narrative 12/19/2023 8:58 AM EDT ? [facility] [place] ? [address] ?[place] [address] ? Mammography Report ? Signed ? Patient: Corina Nielsen ?MR#: [id number] ?? [id number] ? : 1975 ?Acct:[id number] ? Age/Sex: 48 / F ?ADM Date: 12/04/24 ? Loc: HO.MAMMO ? Attending Dr: Marian Crook MD ? Ordering Physician: Marian Crook MD ?Results: 1Ne ?? gative ? Date of Service: 12/05/23 ?Follow Up: 1 Year From Orig ?? inal Mammogram ? Procedure(s): MM tomosynthesis screening BI ?? Accession Number(s): [id number] ? cc: Marian Crook MD ? EXAMINATION: [...] DD/ 1530 ? TD/TT: 12/05/23 1540 ? Heavy Coil Winder: ? Procedure Note Bonita, Carli - 12/19/2023 [facility] [address] [place] [address] [place] [address] Mammography Report Signed Patient: Nika NielsenaMR#: [id number] : 1975Acct:[id number] Age/Sex: 48 / FADM Date: 12/05/23 Loc: HO.MAMMO Attending Dr: Marian Crook MD Ordering Physician: Marian Crook MDResults: 1Ne gative Date of Service: 12/05/23Follow Up: 1 Year From Orig ina Mammogram Procedure(s): MM tomosynthesis screening BI Accession Number(s): [id number] cc: Marian Crook MD EXAMINATION: MM SCREENING [...] 12/19/23 0855 DD/ 1530 TD/TT: 12/05/23 1540 Heavy Coil Winder: us Marian Crook MD IMG BI PROCEDURES Final Result from Last 3 Months or Most Recently Relevant to Health Maintenance Insurance [employer] [facility] C3 Care Teams Morning Show Newscast Producer Relationship Specialty Start Date End Date Marian Crook MD [address] [place] [address] PCP - General Internal Medicine 09/12/23
--- OUTSIDE RECORDS SUMMARY | 2024-06-11 16:17 | XMS_ITS | Encounter Summary ---
Author Organization [employer] Address [address] [facility] [address] [place] [address] Care Team Providers Care Slip Cover Operator Name Role Phone Marian Crook MD Primary Care Provider + Reason for Visit * Reason Onset Date Comments Referral 06/02/2024 Encounter Details Date Type Department Care Team ([facility] st Contact Info) Description 06/02/2024 Telephone [facility] [address] [place], [place] [phone] Marian Crook MD [address] [place] [address] Referral Social History Tobacco Use Types Packs/Day Years [...] * Telephone Encounter - Ale Lopes - 06/02/2024 10:27 AM EDT Tc from pt regarding referral for Orthopaedic. Pt states last visit (05/28) w. [facility] they talk about the referral. Pt scheduled appt with Orthopaedic for July 11. documented in this encounter Plan of Treatment Upcoming Encounters Date Type Department Care Team (Late st Contact Info) Description 07/02/2024 11:45 AM EDT Office Visit [facility] [address] [place] [address] Marian Crook MD [address] [place] [address] documented as of this encounter Visit Diagnoses Not on filedocumented in this encounter Additional Health Concerns Assessment Noted Time PHQ-9 Depression Total Score: 22 024 2:02 PM EDT documented as of this encounter Care Teams Slip Cover Operator Relationship Specialty Start Date End Date Marian Crook MD [address] [place] [address] PCP - General Internal Medicine 09/12/23 documented as of this encounter
--- OUTSIDE RECORDS SUMMARY | 2024-06-11 16:17 | XMS_ITS | Encounter Summary ---
Author Organization [employer] Address [address] [place] [address] [address] [place] [address] Care Team Providers Care Campus Chaplain Name Role Phone [facility] Primary Care Provider Marian Crook MD Primary Care Provider + Reason for Visit * Reason Onset Date Comments Nurse Triage 11/18/2022 Encounter Details Date Type Department Care Team (Late st Contact Info) Description 11/18/2022 Telephone [facility] [address] [place] [address] [facility] [address] [place] [address] Nurse Triage Social History Tobacco Use Types [...] Description 07/02/2024 11:45 AM EDT Office Visit [facility] [address] [place] [phone] Marian Crook MD [address] [place] [address] documented as of this encounter Visit Diagnoses Not on filedocumented in this encounter Additional Health Concerns Assessment Noted Time PHQ-9 Depression Total Score: 16 06/18/ 023 3:25 PM EDT documented as of this encounter Care Teams Campus Chaplain Relationship Specialty Start Date End Date Alisha Hook FNP [address] [place] [address] PCP - General Family Medicine 11/14/21 09/11/23 Marian Crook MD [address] [place] [address] PCP - General Internal Medicine 09/12/23 documented as of this encounter
--- OUTSIDE RECORDS SUMMARY | 2024-06-11 16:17 | XMS_ITS | Encounter Summary ---
Author Organization [employer] Address [address] [facility] 7t [place] [address] Care Team Providers Care Immigration Attorney Name Role Phone Marian Crook MD Primary Care Provider + Reason for Visit * Reason Onset Date Comments Med Refill 06/02/2024 Encounter Details Date Type Department Care Team ([facility] st Contact Info) Description 06/02/2024 Telephone [facility] [address] [place] [address] Marian Crook MD [address] [place] [address] Med Refill Social History Tobacco Use Types Packs/Day Years [...] encounter Miscellaneous Notes * Telephone Encounter - Rashmi Espitia RN - 06/03/2024 3:08 PM EDT TC placed to pt to inform of below provider message. RN advised pt of bel;ow provider message. Pt is aware of appointment and states she needs a new referral for ortho as she hasn't been in a long time. Message forwarded to provider to review and advise. ----- Message from Tata Fink sent at 06/03/2024 12:54 PM EDT ----- Please inform patient of bilateral X-ray results that shows arthritis in both knees, but different areas of the knee. Looks like she is scheduled with ortho July 11. Thanks documented in this encounter Plan of Treatment Upcoming Encounters Date Type Department Care Team (Late st Contact Info) Description 07/02/2024 11:45 AM EDT Office Visit [facility] [address] [place] [address] Marian Crook MD [address] [place], [place] [phone] documented as of this encounter Visit Diagnoses Diagnosis Moderate persistent asthma without complication documented in this encounter Additional Health Concerns Assessment Noted Time PHQ-9 Depression Total Score: 22 024 2:02 PM EDT documented as of this encounter Care Teams Immigration Attorney Relationship Specialty Start Date End Date Marian Crook MD [address] [place] [phone] PCP - General Internal Medicine 09/12/23 documented as of this encounter
--- OUTSIDE RECORDS SUMMARY | 2024-06-11 16:17 | XMS_ITS | Encounter Summary ---
Author Organization [employer] Address [address] [facility] 7t [place] [address] Care Team Providers Care Grouter Helper Name Role Phone Marian Crook MD Primary Care Provider + Reason for Visit * Reason Comments sick onsite Encounter Details Date Type Department Care Team ([facility] st Contact Info) Description 05/28/2024 3:15 PM EST Office Visit [facility] MEDICINE [address] [place], [place] [phone] Tata Fink NP [address] [place], [place] [phone] Chronic pain of both knees (Primary Dx) Social History Tobacco Use Types [...] AM EDT documented as of this encounter Last Filed Vital Signs Vital Sign Reading [...] Mass Index 30.61 05/28/2024 3:18 PM EST documented in this encounter Plan of Treatment Upcoming Encounters Date Type Department Care Team (Late st Contact Info) Description 07/02/2024 11:45 AM EDT Office Visit [facility] MEDICINE [address] [place] [address] Marian Crook MD [address] [place] [address] documented as of this encounter Procedures Procedure Name Priority Date/Time Associated Diagnosis Comments XR KNEE 4+ VIEWS RIGHT Routine 05/31/2024 2:29 PM EDT Chronic pain of both knees XR KNEE 4+ VIEWS LEFT Routine 05/31/2024 2:29 PM EDT Chronic pain of both knees documented in this encounter Results * XR Knee 4+ Views Left (05/31/2024 2:29 PM EDT) Anatomical Region Laterality Modality Lower Extremities, Knee Left Radiogra phic Imaging 05/31/2024 2:29 PM EDT Narrative 05/31/2024 3:05 PM EDT ?[facility] ?[address] ?[place] [address] ?XRay Report ? Signed ? Patient: Abrams James,Corina ?MR#: [id number] ?? [id number] ? : 1975 ?Acct:[id number] ? Age/Sex: 49 / F ?ADM Date: 05/31/24 ? Loc: HO.HHCX ? Attending Dr: Tata Fink ? Ordering Physician: Tata Fink ?? Date of Service: 05/31/24 ?? Procedure(s): XR knee LT 4V ?? Accession Number(s): [id number] ? cc: Tata Fink ? EXAMINATION: ?? [...] DD/ 1429 ? TD/TT: 05/31/24 1455 ? Program Analyst: ? Procedure Note Donlolly, Image - 05/31/[address] [address] XRay Report Signed Patient: Baljit NielsenR#: [id number] : 1975Acct:[id number] Age/Sex: 49 / FADM Date: 05/31/24 Loc: HO.HHCX Attending Dr: Tata Fink Ordering Physician: Tata Fink Date of Service: 05/31/24 Procedure(s): XR knee LT 4V Accession Number(s): [id number] cc: Tata Fink EXAMINATION: XR KNEE, LEFT [...] 05/31/24 1502 DD/ 1429 TD/TT: 05/31/24 1455 Program Analyst: Tata Fink WEIGHER AND GRADER IMG XR PROCEDURES Final Result * XR Knee 4+ Views Right (05/31/2024 2:29 PM EDT) Anatomical Region Laterality Modality Lower Extremities, Knee Right Radiogra phic Imaging 05/31/2024 2:29 PM EDT Narrative 05/31/2024 3:04 PM EDT ?[facility] ?[address] ?[place] [address] ?XRay Report ? Signed ? Patient: Jose Alberto James,Corina ?MR#: [id number] ?? [id number] ? : 1975 ?Acct:[id number] ? Age/Sex: 49 / F ?ADM Date: 05/31/24 ? Loc: HO.HHCX ? Attending Dr: Tata Fink ? Ordering Physician: Tata Fink ?? Date of Service: 05/31/24 ?? Procedure(s): XR knee RT 4V ?? Accession Number(s): [id number] ? cc: Tata Fink ? EXAMINATION: ?? [...] osteoarthrosis, lateral compartment. ? Electronically signed by: ??Valentino Guerra MD ??05/31/2024 03:01 PM ?? EDT ? Dictated By: ?Valentino Cotter MD ? Signed By: ?<Electronically signed by Valentino Jones MD in OV> ? 05/31/24 1501 ? DD/ 1429 ? TD/TT: 05/31/24 1455 ? Program Analyst: ? Procedure Note Carli Mesa - 05/31/2024 [facility] [address] [place] [address] XRay Report Signed Patient: Jose Alberto Yarelis James#: [id number] : 1975Acct:[id number] Age/Sex: 49 / FADM Date: 05/31/24 Loc: HO.HHCX Attending Dr: Tata Fink Ordering Physician: Tata Fink Date of Service: 05/31/24 Procedure(s): XR knee RT 4V Accession Number(s): [id number] cc: Tata Fink EXAMINATION: XR KNEE, RIGHT [...] 05/31/24 1501 DD/ 1429 TD/TT: 05/31/24 1455 Program Analyst: Tata Fink WEIGHER AND GRADER IMG XR PROCEDURES Final Result documented in this encounter Visit Diagnoses Diagnosis Chronic pain of both knees- Primary documented in this encounter Additional Health Concerns Assessment Noted Time PHQ-9 Depression Total Score: 22 024 2:02 PM EDT documented as of this encounter Care Teams Grouter Helper Relationship Specialty Start Date End Date Marian Crook MD [address] [place] [address] PCP - General Internal Medicine 09/12/23 documented as of this encounter
--- OUTSIDE RECORDS SUMMARY | 2024-06-11 16:17 | XMS_ITS | Encounter Summary ---
Author Organization [employer] Address [address] [facility] 7t [place] [address] Care Team Providers Care Almond Huller Name Role Phone Marian Crook MD Primary Care Provider + Encounter Details Date Type Department Care Team ([facility] st Contact Info) Description 06/04/2024 Population Health Risk Score [facility] (C3) Department [address] [facility] 7 [place] [phone] Provider, Population Health Generic Social History Tobacco Use Types Packs/Day Years [...] 11:45 AM EDT Office Visit [facility] MEDICINE [address] [place] [address] Marian Crook MD [address] [place] [address] documented as of this encounter Visit Diagnoses Not on filedocumented in this encounter Additional Health Concerns Assessment Noted Time PHQ-9 Depression Total Score: 22 024 2:02 PM EDT documented as of this encounter Care Teams Almond Huller Relationship Specialty Start Date End Date Marian Crook MD [address] [place] [address] PCP - General Internal Medicine 09/12/23 documented as of this encounter
--- OUTSIDE RECORDS SUMMARY | 2024-06-11 16:17 | XMS_ITS | Encounter Summary ---
Author Organization [employer] Address [address] [facility] 7t [place] [address] Care Team Providers Care Travelers' Aid Worker Name Role Phone Marian Crook MD Primary Care Provider + Reason for Visit * Reason Comments Med Refill Encounter Details Date Type Department Care Team ([facility] st Contact Info) Description 06/02/2024 Refill [facility] MEDICINE [address] [place], [place] [phone] Marian Crook MD [address] [place], [place] [phone] Social History Tobacco Use Types Packs/Day Years [...] EDT Office Visit [facility] MEDICINE [address] [place] [address] Mraian Crook MD [address] [place] [address] documented as of this encounter Visit Diagnoses Not on filedocumented in this encounter Additional Health Concerns Assessment Noted Time PHQ-9 Depression Total Score: 22 024 2:02 PM EDT documented as of this encounter Care Teams Travelers' Aid Worker Relationship Specialty Start Date End Date Marian Crook MD [address] [place] [address] PCP - General Internal Medicine 09/12/23 documented as of this encounter
--- OUTSIDE RECORDS SUMMARY | 2024-06-11 16:17 | XMS_ITS | Encounter Summary ---
Author Organization [employer] Address [address] [facility] 7t [place] [address] Care Team Providers Care Environmental Director Name Role Phone Marian Crook MD Primary Care Provider + Reason for Visit * Reason Onset Date Comments Med Refill 05/13/2024 Encounter Details Date Type Department Care Team ([facility] st Contact Info) Description 05/13/2024 Refill [facility] MEDICINE [address] [place] [address] Marian Crook MD [address] [place] [address] Moderate persistent asthma without complication Social History [...] EDT Office Visit [facility] MEDICINE [address] [place] [address] Marian Crook MD [address] [place] [address] documented as of this encounter Visit Diagnoses Diagnosis Moderate persistent asthma without complication documented in this encounter Additional Health Concerns Assessment Noted Time PHQ-9 Depression Total Score: 22 024 2:02 PM EDT documented as of this encounter Care Teams Environmental Director Relationship Specialty Start Date End Date Marian Crook MD [address] [place] [address] PCP - General Internal Medicine 09/12/23 documented as of this encounter
--- OUTSIDE RECORDS SUMMARY | 2024-06-11 16:17 | XMS_ITS | Encounter Summary ---
Author Organization [employer] Address [address] [facility] 7t [place] [address] Care Team Providers Care Life Skills Educator Name Role Phone Marian Crook MD Primary Care Provider + Reason for Visit * Reason Comments Med Refill Encounter Details Date Type Department Care Team (Late st Contact Info) Description 06/05/2024 Refill [facility] MEDICINE [address] [place] [address] Claritza Leonard DO [address] [place] [address] Social History Tobacco Use Types Packs/Day Years [...] 11:45 AM EDT Office Visit [facility] MEDICINE [address] [place] [address] Marian Crook MD [address] [place] [address] documented as of this encounter Visit Diagnoses Not on filedocumented in this encounter Additional Health Concerns Assessment Noted Time PHQ-9 Depression Total Score: 22 024 2:02 PM EDT documented as of this encounter Care Teams Life Skills Educator Relationship Specialty Start Date End Date Marian Crook MD [address] [place] [address] PCP - General Internal Medicine 09/12/23 documented as of this encounter
--- OUTSIDE RECORDS SUMMARY | 2024-06-11 16:17 | XMS_ITS | Encounter Summary ---
Author Organization [employer] [facility] Address [address] [place] [address] 7 [place] [address] Care Team Providers Care Inspector Repairer Name Role Phone [facility] Primary Care Provider [phone] Marian Crook MD Primary Care Provider + Encounter Details Date Type Department Care Team (Late st Contact Info) Description 04/03/2023 [facility] MEDICINE [address] [place] [address] [facility] [address] [place] [address] Social History Tobacco Use Types Packs/Day Years [...] Description 07/02/2024 11:45 AM EDT Office Visit [facility] MEDICINE [address] [place] [phone] Marian Crook MD [address] [place], [place] [phone] documented as of this encounter Visit Diagnoses Not on filedocumented in this encounter Additional Health Concerns Assessment Noted Time PHQ-9 Depression Total Score: 16 023 3:25 PM EDT documented as of this encounter Care Teams Inspector Repairer Relationship Specialty Start Date End Date Miladys RACQUEL Brito [address] [place] [address] PCP - General Family Medicine 11/14/21 09/11/23 Marian Crook MD [address] [place] [address] PCP - General Internal Medicine 09/12/23 documented as of this encounter
--- OUTSIDE RECORDS SUMMARY | 2024-06-11 16:17 | XMS_ITS | Encounter Summary ---
Author Organization [employer] Address [address] [facility] 7t [place] [address] Care Team Providers Care Ton Container Shipper Name Role Phone Marian Crook MD Primary Care Provider + Reason for Visit * Reason Onset Date Comments Nurse Triage 05/26/2024 Encounter Details Date Type Department Care Team ([facility] st Contact Info) Description 05/26/2024 Telephone [facility] MEDICINE [address] [place], [place] [phone] Marian Crook MD [address] [place] [address] Nurse Triage Social History Tobacco Use Types [...] encounter Miscellaneous Notes * Telephone Encounter - Ana Laura Kaminski, ODILIA - 05/26/2024 9:24 AM EST Triage call returned to patient who reports that she is having increased pain in left knee. Similarto pain she had previously in right with some surgical intervention at [facility] some 5 years ago. Patient reports left knee with swelling no redness or warmth. Increased difficulty walking and bending. Norecent accident or injury. Is taking OTC Tylenol as needed with minimal effect. Disposition reviewed and patient in agreement with plan. ASK/Ronak COMMUNICATIONS PROGRAMMER on 05/28/24 @ 315pm Protocol Used: Knee Pain (Adult) Protocol-Based Disposition: See in Office or Video Visit within 3 Days Video visit not offered Positive Triage Questions: * Moderate pain (e.g., symptoms interfere with work or school, limping) and present > 3 days * Swollen knee joint (no fever or redness) * Patient wants to be seen * All higher-acuity triage questions were negative Care Advice Discussed: * Pain Medicines * Reasons To Call Back - Moderate pain (interferes with normal activities, limping) lasts over 3 days - Signs of infection occur (spreading redness, warmth, fever) - You become worse * Telephone Encounter - Ale Lopes - 05/26/2024 8:57 AM EST Symptom: Knee Pain (Right)- Not From Injury Outcome: Schedule an urgent appointment (within 1 hour) or talk to a nurse or provider soon Reason: Trouble walking The caller accepted this outcome. 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 Pt states had surgery 5 years ago, never went to physical therapy, today reports it bothers when she sit, knee is swollen and she is requesting a referral to [facility] Orthopedic. documented in this encounter Plan of Treatment Upcoming Encounters Date Type Department Care Team (Late st Contact Info) Description 07/02/2024 11:45 AM EDT Office Visit [facility] MEDICINE [address] [place] [address] Marian Crook MD [address] [place] [address] documented as of this encounter Visit Diagnoses Not on filedocumented in this encounter Additional Health Concerns Assessment Noted Time PHQ-9 Depression Total Score: 22 024 2:02 PM EDT documented as of this encounter Care Teams Ton Container Shipper Relationship Specialty Start Date End Date Marian Crook MD [address] [place] [address] PCP - General Internal Medicine 09/12/23 documented as of this encounter
--- OUTSIDE RECORDS SUMMARY | 2024-06-11 16:17 | XMS_ITS | Encounter Summary ---
Author Organization [employer] Address [address] [facility] 7t [place] [address] Care Team Providers Care Director [employer] Name Role Phone Marian Crook MD Primary Care Provider + Reason for Visit * Reason Comments Med Refill Encounter Details Date Type Department Care Team ([facility] st Contact Info) Description 06/05/2024 Refill [facility] MEDICINE [address] [place], [place] [phone] Marian Crook MD [address] [place], [place] [phone] Social History Tobacco Use Types Packs/Day Years [...] Description 07/02/2024 11:45 AM EDT Office Visit [facility] MEDICINE [address] [place] [address] Marian Crook MD [address] [place] [address] documented as of this encounter Visit Diagnoses Not on filedocumented in this encounter Additional Health Concerns Assessment Noted Time PHQ-9 Depression Total Score: 22 024 2:02 PM EDT documented as of this encounter Care Teams Director [employer] Relationship Specialty Start Date End Date Marian Crook MD [address] [place] [address] PCP - General Internal Medicine 09/12/23 documented as of this encounter
== END 2024-06-11 14:23 | disposition home or self-care (01) ==
PROVIDERS: PCP Internal Medicine; Visit Provider Internal Medicine
DX: K29.70 Gastritis, unspecified, without bleeding (principal); Z86.0100 Personal history of colon polyps, unspecified
CPT/HCPCS: 99213

== ENCOUNTER → 2024-06-11 13:57 | Outpatient (BNVA) | payer MEDICAID, SELFPAY | PROVIDERS: PCP Internal Medicine; Visit Provider Internal Medicine | DX: K29.70 Gastritis, unspecified, without bleeding (principal); Z86.0100 Personal history of colon polyps, unspecified | CPT/HCPCS: 99212 ==

== ENCOUNTER 2024-06-18 07:46 | Emergency (ER) | payer MEDICAID, SELFPAY ==
[2024-06-18] VITALS (8 sets, daily range): BP systolic 88–110; BP diastolic 33–65; PULSE 58–75; RESP 16–18; TEMP 36.3–36.4; O2SAT 97–100; BMI 30.3
--- NOTE | ~2024-06-18 | US_ITS ---
EXAMINATION: US TRIPLEX LOWER EXTREMITY, LEFT CLINICAL INFORMATION: Edema, left lower extremity. COMPARISON: May 15, 2018. TECHNIQUE: Color-flow triplex imaging with spectral analysis and compression Doppler were performed on the left lower extremity. FINDINGS: Respiratory variation, normal compression and augmented flow are noted throughout the interrogated common femoral vein, superficial femoral vein, profunda femoral vein, popliteal vein and midcalf peroneal and posterior tibial venous segments. There is no Arteaga's cyst. US/US venous duplex LE LT IMPRESSION: No acute deep venous thrombosis involving the left lower extremity. Negative for DVT. Electronically signed by: Valentino Guerra MD 06/18/2024 09:18 AM EDT
--- NOTE | ~2024-06-18 | XR_ITS ---
EXAMINATION: XR CHEST 1 VIEW HISTORY: dyspnea COMPARISON: Comparison is made with the prior examination dated 12/26/2017. FINDINGS: A single AP portable view of the chest performed at 9:25 AM is submitted. The lungs are expanded and clear. There is no pleural effusion, pneumothorax, or pulmonary vascular congestion. The heart is normal in size. The bones are intact. There are surgical clips at the junction. XR/XR chest 1V IMPRESSION: No acute cardiopulmonary abnormality. Electronically signed by: Dorian Graham MD 06/18/2024 09:34 AM EDT
--- NOTE | 2024-06-18 07:48 | ECG_ITS ---
Test Reason : rodrisa Blood Pressure : */* mmHG Vent. Rate : 74 BPM Atrial Rate : 74 BPM P-R Int : 142 ms QRS Dur : 74 ms QT Int : 384 ms P-R-T Axes : 54 16 8 degrees QTcB Int : 426 ms Normal sinus rhythm Low voltage QRS Borderline ECG When compared with ECG of 18-Jul-2014 20:43, No significant change was found Referred By: Generic ED Physician Electronically Signed By: MERA HEREDIA MD
--- NOTE | 2024-06-18 08:13 | ED_ITS ---
HPI - Chest Pain General Chief Complaint: Chest Pain Stated Complaint: chest pain sob Time Seen by Provider: 06/18/24 08:11 Source: patient and old records reviewed Mode of arrival: ambulatory Limitations: no limitations History of Present Illness ED Provider: EDEL TIERNEY narrative: 49 yo female with PMH of fibroids, gastritis, sleeve gastrectomy, iron deficiency who presents with c/o waking up at 3am and not feeling well with dizziness she felt nauseated no headache. She tried to go back to sleep and woke up at 5am with chest tightness on L chest and not feeling well. No recent travel, procedures, URI symptoms, trauma to chest. She did note some L calf pain as well. She has had stress test in past and work up negative for CAD though has a strong family history. She notes her chest tightness and pain is on and off. MD complaint: chest pain Onset (ago): hour(s) (5am today) Timing of current episode: episodic Prior episodes: Yes Onset: during rest Pain location: substernal Pain radiation: left arm (shoulder) Severity: moderate Quality: tightness Relieving factors: nothing Exacerbating factors: exertion and movement Associated symptoms: nausea, dyspnea and other (dizziness) Treatment prior to arrival: none Related Data Home Medications ?Medication ?Instructions ?Recorded ?Confirmed albuterol sulfate 2.5 mg/3 mL 1 vial inhalation Q4H PRN 02/01/22 05/03/24 (0.083 %) solution for nebulization Shortness Of Breath cholecalciferol (vitamin D3) 50 50 mcg PO DAILY 02/18/24 05/03/24 mcg (2,000 unit) tablet (Vitamin D3) lidocaine 5 % topical patch 1 patch topical DAILY 03/26/24 05/03/24 Previous Rx's ?Medication ?Instructions ?Recorded hydrocortisone acetate 25 mg 25 mg MN BEDTIME 12 days #12 ea 05/27/24 rectal suppository (Anusol-HC) tadalafil 5 mg tablet 5 mg PO DAILY bladder instability 06/07/24 90 days #90 tabs omeprazole 20 mg capsule,delayed 20 mg PO DAILY #90 caps 06/11/24 release Allergies Allergy/AdvReac Type Severity Reaction Status Date / Time No Known Allergies Allergy Verified 06/18/24 07:55 [No Known Allergies*] Review of Systems 2 Review of Systems: Constitutional : No Weight loss, No Fever, No Chills ENT/Mouth : No sore throat, No Rhinorrhea Eyes: No Eye Pain, No Swelling Cardiovascular : pos Chest Pain, pos SOB, no Dyspnea on Exertion, No Orthopnea, No Edema, No Palpitations Respiratory : No Cough, No Sputum Gastrointestinal : pos Nausea, No Vomiting, No Diarrhea, No abdominal Pain, No Hematochezia, No Melena Genitourinary : No Dysuria, No Urinary Frequency Musculoskeletal : No joint pain, No Myalgias, No Joint Swelling Skin : No Skin Lesions, No rash Neuro : No Weakness, No Numbness, No Dizziness, No Headache All other systems reviewed and are negative PMFSH Past Medical History Attestation statement: The following information was validated with the patient. Source: old records reviewed Medical History delivery delivered Depression Anal fissure Hemorrhoids Chronic RLQ pain Polyuria Dizziness FILIBERTO (obstructive sleep apnea) Moderate persistent asthma in adult without complication Chronic low back pain Iron deficiency Arthritis History of asthma Surgical History Hx of colonoscopy History of esophagogastroduodenoscopy (EGD) S/P laparoscopic sleeve gastrectomy H/O abdominoplasty Family History Family History Mother History of hypertension Arthritis Glaucoma Father Heart problem History of hypertension Brother Heart problem History of hypertension Sister History of hypertension Brother No problems noted. Brother No problems noted. Brother No problems noted. Brother No problems noted. Sister Ovarian cancer Sister No problems noted. Sister No problems noted. Social History Social History Household Members: Spouse and Children Housing: House Are you a primary primary care physician to a significant other at home: No Do you presently have visiting nurse or other home services: No Alcohol intake: current Alcohol intake frequency: holidays/special occasions only Patient Tobacco Use Status: Never used Tobacco Smoked in Last 30 Days: No Use of substances other than those prescribed or required for medical reasons: No Advance Directives: No Advance Directives Information Provided: Yes Patient : No service: No Current occupational status: employed Physical Exam 2 Vital Signs: Vital Signs: Last Vital Signs Temp 97.5 F 06/18/24 07:51 Pulse 71 06/18/24 10:46 Resp 18 06/18/24 10:40 BP 88/58 L 06/18/24 10:46 Pulse Ox 100 06/18/24 10:40 O2 Del Method Room Air 06/18/24 10:40 BMI result Body Mass Index 30.3 Appearance: Alert. Oriented X3. No acute distress. Eyes: Pupils equal, round and reactive to light. ENT: Pharynx normal. Neck: Normal inspection. Neck supple. CVS: Normal heart rate and rhythm. Pulses normal. Chest: ttp along L chest wall Respiratory: No respiratory distress. Breath sounds normal. Abdomen: Soft and nontender. Skin: Skin warm and dry. Normal skin color. Normal skin turgor. Extremities: No lower extremity edema. reports some mild L calf pain but no redness, swelling, ropy cord distal NV intact Neuro: Oriented X 3. No motor deficit. No sensory deficit. CN2-12 intact Course Course Course Narrative: BP orthostatics but hx of same notes chronic hypotension for the past couple of years no BP meds and suspected related to her gastric sleeve Medications Administered Generic Name Dose Route Start Last Admin Trade Name Freq PRN Reason Stop Dose Admin Lactated Ringer's 1,000 mls @ 999 mls/hr 06/18/24 11:06 06/18/24 11:08 Lr IV 06/18/24 12:06 999 mls/hr .Q1H1M ONE Administration Discontinued Medications Generic Name Dose Route Start Last Admin Trade Name Freq PRN Reason Stop Dose Admin Morphine Sulfate 2 mg 06/18/24 08:23 06/18/24 08:32 Morphine Sulfate 2 Mg/Ml Cartridge IVPUSH 06/18/24 08:24 Not Given ONCE ONE Protocol Ondansetron HCl 4 mg 06/18/24 08:23 06/18/24 08:35 Ondansetron Hcl 4 Mg/2 Ml Vial IVPUSH 06/18/24 08:24 4 mg ONCE ONE Administration Procedures Procedure Narrative Procedure Narrative: bedside limited ECHO apical, subxiphoid, parasternal no effusion and no obvious GWMA Medical Decision Making Medical Decision Making MDM Narrative: 49 yo female with PMH of fibroids, gastritis, sleeve gastrectomy, iron deficiency who presents with c/o waking up and feeling dizzy then chest pain at 5am - she has no recent travel or procedures, she has stable VS, it is not pleuritic but she reports recent L leg cramp at this time will obtain EKG, CXR, troponin x 2, DVT study of L leg. Suspect possible atypical chest pain, low prob ACS, anemia, dehydration. Differential Diagnosis Differential Diagnoses: The differential diagnosis associated with the presentation includes atypical chest pain, low prob ACS, dehydration, low prob VTE - DVT study ordered, chest wall pain Admission/Observation Consideration of admission/observation: Escalation of care including admission/observation considered neg ddimer, trop negative x 2, no ischemia on EKG ECHO bedside no effusion + ortho VS improved after fluids Lab Data [facility] Lab Attestation statement: I reviewed the patient's lab results. 06/18/24 08:29 06/18/24 08:29 Labs: Lab Results 06/18/24 06/18/24 Range/Units 08:29 11:08 WBC 6.1 (4.8-10.8) X10*3/uL RBC 4.36 (4.20-5.50) X10*6/uL Hgb 13.5 (12.0-16.0) g/dl Hct 40.2 (37.0-47.0) % MCV 92.2 (80.0-98.0) fL MCH 31.0 (27.0-33.0) pg MCHC 33.6 (31.0-35.0) g/dl RDW 13.5 (11.0-16.0) % Plt Count 192 D (160-400) X10*3/uL MPV 10.5 (9.4-12.3) fL Immature Gran % (Auto) 0.3 (0.0-0.4) % Neut % (Auto) 76.0 H (45-73) % Lymph % (Auto) 16.3 L (20-40) % [place] % (Auto) 6.2 (2-11) % Eos % (Auto) 0.7 (0-4) % Baso % (Auto) 0.5 (0-2) % Lymph # (Auto) 1.0 L (1.2-4.9) X10*3/uL [place] # (Auto) 0.4 (0.1-1.2) X10*3/uL Eos # (Auto) 0.0 (0.0-0.4) X10*3/uL Baso # (Auto) 0.0 (0.0-0.2) X10*3/uL Abs Immat Gran (auto) 0.02 (0.00-0.03) X10*3/uL Absolute Neuts (auto) 4.7 (2.0-8.3) x10*3/uL Absolute Nucleated RBC 0.000 (0.0-0.012) X10*3/uL Nucleated RBC % (auto) 0.0 (0.0-0.2) /100WBC PT 12.3 (10.9-12.4) SEC INR 1.1 (0.9-1.1) D-Dimer High Sensitivty < 150 NG/ML Sodium 138 (135-145) mmol/L Potassium 3.9 (3.3-5.1) mmol/L Chloride 112 H (96-108) mmol/L Carbon Dioxide 21 L (22-29) mmol/L Anion Gap 9 L (12-20) BUN 15 (9-16) mg/dL Creatinine 0.70 (0.5-1.4) mg/dL Estim Creat Clear Calc 95.9 Estimated GFR > 60 Random Glucose 93 (60-115) mg/dL Calcium 8.9 (8.4-10.2) mg/dL Magnesium 1.9 (1.6-2.6) mg/dL Total Bilirubin 0.5 (0.0-1.0) mg/dL AST 21 (5-31) U/L ALT 16 (0-31) U/L Alkaline Phosphatase 64 (39-117) U/L Troponin I High Sens < 2.7 < 2.7 (<3.5-17.0) ng/L Total Protein 7.0 (6.5-8.0) g/dL Albumin 4.1 (3.5-5.0) g/dL Independent Interpretation I performed an independent interpretation of an: EKG, Plain X-Ray (normal ) and Ultrasound (no DVT) Interpretation: Rate: 74 Rhythm: NSR [place]: normal Normal P waves. Normal LANIE. Normal QRS complex. ST T wave : no DIMA, inverted t wave III and aVF qTC: 426 prior studies: no sig change from priors The study has been interpreted contemporaneously by me. . Radiology Impression Discussion of test interpretation with radiology: I have reviewed the radiologist's reading. External Record Review External record reviewed: Outpatient record Discharge Plan Discharge Clinical Impression: Atypical chest pain, Orthostatic hypotension Patient Disposition: Home, Self-Care Instructions: Chest Pain (ED), Hypotension (ED) Additional Instructions: labs reassuring including normal hemoglobin EKG and 2 blood tests for the heart are normal, negative blood test for clot normal chest xray and study for blood clot in left leg were negative given 1L of IVF due to chronic low BPs - please rest, stay hydrated, drink plenty of fluids and follow closely with your doctor return for any worsening symptoms or concerns. Prescriptions: No Action tadalafil 5 mg tablet 5 mg PO DAILY 90 Days Qty: 90 0RF Rx Instructions: [facility] [id number] albuterol sulfate 2.5 mg /3 mL (0.083 %) solution for nebulization 1 vial inhalation Q4H PRN (Reason: Shortness Of Breath) hydrocortisone acetate [Anusol-HC] 25 mg suppository 25 mg MN BEDTIME 12 Days Qty: 12 0RF lidocaine 5 % adhesive patch,medicated 1 patch topical DAILY cholecalciferol (vitamin D3) [Vitamin D3] 50 mcg (2,000 unit) tablet 50 mcg PO DAILY omeprazole 20 mg capsule,delayed release(DR/EC) 20 mg PO DAILY Qty: 90 0RF Print Language: Zambian
--- NOTE | 2024-06-18 08:29 | PC.NURSE ---
reports slight dizziness even at rest in bed. skin pwd. nsr on monitor. unlabored resp. reports dizziness since 3am and chest pressure .
[2024-06-18 08:34] LABS: MANUAL DIFF FLAG NO
[2024-06-18] MEDS: ondansetron HCL 4 MG/2 ML VIAL IVPUSH (08:35)
[2024-06-18 08:36] LABS: Basophils Percent Auto 0.5 % (0-2); Eosinophils Percent Auto 0.7 % (0-4); Hematocrit 40.2 % (37.0-47.0); Hemoglobin 13.5 g/dl (12.0-16.0); Imm Gran Abs Auto 0.02 X10*3/uL (0.00-0.03); Imm Gran Pct Auto 0.3 % (0.0-0.4); Lymphocytes Percent Auto 16.3 % (20-40); Mean Corpuscular HGB Conc 33.6 g/dl (31.0-35.0); Mean Corpuscular Volume 92.2 fL (80.0-98.0); Mean Platelet Volume 10.5 fL (9.4-12.3); Monocytes Absolute Auto 0.4 X10*3/uL (0.1-1.2); Monocytes Percent Auto 6.2 % (2-11); Neutrophils Absolute Auto 4.7 x10*3/uL (2.0-8.3); Platelet Count 192 X10*3/uL (160-400); Red Blood Count 4.36 X10*6/uL (4.20-5.50); Red Cell Distribution Width 13.5 % (11.0-16.0); White Blood Count 6.1 X10*3/uL (4.8-10.8)
[2024-06-18 08:40] LABS: INTERNATIONAL NORM RATIO 1.1 (0.9-1.1); Prothrombin Time 12.3 SEC (10.9-12.4)
[2024-06-18 08:49] LABS: Alanine Aminotransferase 16 U/L (0-31); Albumin Level 4.1 g/dL (3.5-5.0); Alkaline Phosphatase 64 U/L (39-117); Anion Gap 9 (12-20); Aspartate Amino Transferase 21 U/L (5-31); Bilirubin Total 0.5 mg/dL (0.0-1.0); Blood Urea Nitrogen 15 mg/dL (9-16); Calcium 8.9 mg/dL (8.4-10.2); Carbon Dioxide 21 mmol/L (22-29); Chloride 112 mmol/L (96-108); Creatinine Clr Calc Pharmacy 95.9; Estimated Glomerular Filt Rate > 60; Glucose Random 93 mg/dL (60-115); Magnesium 1.9 mg/dL (1.6-2.6); Potassium 3.9 mmol/L (3.3-5.1); Sodium 138 mmol/L (135-145)
[2024-06-18 09:11] LABS: Troponin-I High Sensitivity < 2.7 ng/L (<3.5-17.0)
--- NOTE | 2024-06-18 09:55 | PC.NURSE ---
up to BR mult times with steady gait. reports improved but still present dizziness.
--- NOTE | 2024-06-18 10:46 | PC.NURSE ---
denied dizziness with orthos but felt weak
[2024-06-18] MEDS: Lactated Ringers 1,000 ML 999 ML IV (11:08)
[2024-06-18 11:42] LABS: Troponin-I High Sensitivity < 2.7 ng/L (<3.5-17.0)
[2024-06-18 11:43] LABS: D Dimer High Sensitivity < 150 NG/ML
== END 2024-06-18 13:57 | disposition home or self-care (01) ==
PROVIDERS: Physician Assistant; Emergency Provider Emergency Medicine; PCP Internal Medicine
DX: R07.89 Other chest pain (principal); I95.1 Orthostatic hypotension; R42 Dizziness and giddiness; R06.02 Shortness of breath; Z79.899 Other long term (current) drug therapy
CPT/HCPCS: 36415; 71045; 80053; 83735; 84484; 85025; 85379; 85610; 93005; 93971; 96374; 99284; 99285; J2405; J7120

== ENCOUNTER → 2024-06-18 07:48 | Outpatient (BNV) | payer MEDICAID, SELFPAY | PROVIDERS: Emergency Provider Emergency Medicine; PCP Internal Medicine; Visit Provider Internal Medicine Cardiovascular Disease | DX: R06.03 Acute respiratory distress (principal) | CPT/HCPCS: 93010 ==

== ENCOUNTER → 2024-06-18 08:16 | Outpatient (BNV) | payer MEDICAID, SELFPAY | PROVIDERS: Emergency Provider Emergency Medicine; PCP Internal Medicine; Visit Provider Radiology Diagnostic Radiology | DX: R60.0 Localized edema (principal); R06.00 Dyspnea, unspecified | CPT/HCPCS: 71045; 93971 ==

== ENCOUNTER 2024-06-25 13:45 | Outpatient (REF) | payer OTHER, SELFPAY ==
--- OUTSIDE RECORDS SUMMARY | 2024-06-25 16:26 | XMS_ITS | Encounter Summary ---
Author Organization [employer] Address 75 [facility] 7t [place] [address] Care Team Providers Care Staff Attorney Name Role Phone Marian Crook MD Primary Care Provider + Reason for Visit * Reason Onset Date Comments Med Refill 06/02/2024 Encounter Details Date Type Department Care Team ([facility] st Contact Info) Description 06/02/2024 Telephone [facility] [address] [place] [address] Marian Crook MD [address] [place] [address] Med Refill Social History Tobacco Use Types [...] Description 07/02/2024 11:45 AM EDT Office Visit [facility] [address] [place] [address] Marian Crook MD [address] [place], [place] [phone] documented as of this encounter Visit Diagnoses Diagnosis Moderate persistent asthma without complication documented in this encounter Additional Health Concerns Assessment Noted Time PHQ-9 Depression Total Score: 22 024 2:02 PM EDT documented as of this encounter Care Teams Staff Attorney Relationship Specialty Start Date End Date Marian Crook MD [address] [place] [address] PCP - General Internal Medicine 09/12/23 documented as of this encounter
--- OUTSIDE RECORDS SUMMARY | 2024-06-25 16:26 | XMS_ITS | Encounter Summary ---
Author Organization [employer] Address 75 [facility] 7t [place] [address] Care Team Providers Care Regional Commercial Sales Manager Name Role Phone Marian Crook MD Primary Care Provider + Reason for Referral * Consultation (Routine) - Pending Review Specialty Diagnoses / Procedures Referred By Lien barragan Referred To Contact Orthopaedic Surgery Diagnoses Bilateral primary osteoarthritis of knee Marian Crook MD [address] [place] [address] Phone: tel: fax: Referral ID Status Reason Start Date Expiration Date Visits Requested Visits Authorized [id number] Pending Review Specialty Services Required 06/24/2024 06/24/2025 1 1 Encounter Details Date Type Department Care Team (Late st Contact Info) Description 06/24/2024 Orders Only [facility] [address] [place], [place] [phone] Marian Crook MD [address] [place], [place] [phone] Bilateral primary osteoarthritis of knee (Primary Dx) [...] AM EDT Office Visit [facility] [address] [place] [address] Marian Crook MD [address] [place] [address] Scheduled Referrals Name Type Priority Associated Diagnoses [...] documented as of this encounter Care Teams Regional Commercial Sales Manager Relationship Specialty Start Date End Date Marian Crook MD [address] [place] [address] PCP - General Internal Medicine 09/12/23 documented as of this encounter
--- OUTSIDE RECORDS SUMMARY | 2024-06-25 16:26 | XMS_ITS | Encounter Summary ---
Author Organization [employer] Address [address] [place] [address] 7t [place] [address] Care Team Providers Care Day Light Relief Operator Name Role Phone [facility] Primary Care Provider [phone] Marian Crook MD Primary Care Provider + Reason for Visit * Reason Onset Date Comments Nurse Triage 11/18/2022 Encounter Details Date Type Department Care Team (Late st Contact Info) Description 11/18/2022 Telephone [facility] [address] [place] [address] [facility] [address] [place] [address] Nurse Triage Social History Tobacco Use Types [...] 07/02/2024 11:45 AM EDT Office Visit [facility] [address] [place] [address] Marian Crook MD [address] [place] [address] documented as of this encounter Visit Diagnoses Not on filedocumented in this encounter Additional Health Concerns Assessment Noted Time PHQ-9 Depression Total Score: 16 06/18/ 023 3:25 PM EDT documented as of this encounter Care Teams Day Light Relief Operator Relationship Specialty Start Date End Date Alisha Hook FNP [address] [place] [address] PCP - General Family Medicine 11/14/21 09/11/23 Marian Crook MD [address] [place] [address] PCP - General Internal Medicine 09/12/23 documented as of this encounter
--- OUTSIDE RECORDS SUMMARY | 2024-06-25 16:26 | XMS_ITS | Encounter Summary ---
Author Organization [employer] Address 75 [facility] 7t [place] [address] Care Team Providers Care Animal Shelter Manager Name Role Phone Marian Crook MD Primary Care Provider + Reason for Visit * Reason Onset Date Comments Med Refill 03/25/2024 Encounter Details Date Type Department Care Team (Late st Contact Info) Description 03/25/2024 Refill [facility] [address] [place] [address] Claritza Leonard DO [address] [place] [address] Social History Tobacco Use Types Packs/Day Years [...] Description 07/02/2024 11:45 AM EDT Office Visit [facility] [address] [place] [address] Marian Crook MD [address] [place] [address] documented as of this encounter Visit Diagnoses Not on filedocumented in this encounter Additional Health Concerns Assessment Noted Time PHQ-9 Depression Total Score: 22 024 2:02 PM EDT documented as of this encounter Care Teams Animal Shelter Manager Relationship Specialty Start Date End Date Marian Crook MD [address] [place] [address] PCP - General Internal Medicine 09/12/23 documented as of this encounter
--- OUTSIDE RECORDS SUMMARY | 2024-06-25 16:26 | XMS_ITS | Encounter Summary ---
Author Organization [employer] Address [address] [facility] 7t [place] [address] Care Team Providers Care Remote Control Mirror Installer Name Role Phone Marian Crook MD Primary Care Provider + Reason for Visit * Reason Onset Date Comments Referral 06/02/2024 Encounter Details Date Type Department Care Team ([facility] st Contact Info) Description 06/02/2024 Telephone [facility] 230 [place], [place] [phone] Marian Crook MD [address] [place] [address] Referral Social History Tobacco Use Types Packs/Day [...] of referral for Orthopedic. Contact pt at [phone] * Telephone Encounter - Ale Lopes - [...] 11:45 AM EDT Office Visit [facility] [address] [place] [address] Marian Crook MD [address] [place] [address] documented as of this encounter Visit Diagnoses Not on filedocumented in this encounter Additional Health Concerns Assessment Noted Time PHQ-9 Depression Total Score: 22 024 2:02 PM EDT documented as of this encounter Care Teams Remote Control Mirror Installer Relationship Specialty Start Date End Date Marian Crook MD [address] [place] [address] PCP - General Internal Medicine 09/12/23 documented as of this encounter
--- OUTSIDE RECORDS SUMMARY | 2024-06-25 16:26 | XMS_ITS | Encounter Summary ---
Author Organization [facility] Address [address] [place] [address] 7 [place] [address] Care Team Providers Care Director Of Development And Marketing Name Role Phone [facility] Primary Care Provider [phone] Marian Crook MD Primary Care Provider + Encounter Details Date Type Department Care Team (Late st Contact Info) Description 04/03/2023 Abstract [facility] [address] [place] [address] [facility] [address] [place] [address] Social History Tobacco Use Types Packs/Day Years [...] Description 07/02/2024 11:45 AM EDT Office Visit [facility] [address] [place] [address] [phone] Marian Crook MD [address] [place], [place] [phone] documented as of this encounter Visit Diagnoses Not on filedocumented in this encounter Additional Health Concerns Assessment Noted Time PHQ-9 Depression Total Score: 16 023 3:25 PM EDT documented as of this encounter Care Teams Director Of Development And Marketing Relationship Specialty Start Date End Date Miladys RACQUEL Brito [address] [place] [address] PCP - General Family Medicine 11/14/21 09/11/23 Marian Crook MD [address] [place] [address] PCP - General Internal Medicine 09/12/23 documented as of this encounter
--- OUTSIDE RECORDS SUMMARY | 2024-06-25 16:26 | XMS_ITS | Encounter Summary ---
Author Organization [employer] Address 75 [facility] 7t [place] [address] Care Team Providers Care Snowboard Instructor Name Role Phone Marian Crook MD Primary Care Provider + Reason for Visit * Reason Comments Med Refill Encounter Details Date Type Department Care Team ([facility] st Contact Info) Description 06/05/2024 Refill [facility] [address] [place], [place] [phone] Marian Crook MD [address] [place], [place] [phone] Social History Tobacco Use Types Packs/Day Years [...] Description 07/02/2024 11:45 AM EDT Office Visit [facility] [address] [place] [address] Marian Crook MD [address] [place] [address] documented as of this encounter Visit Diagnoses Not on filedocumented in this encounter Additional Health Concerns Assessment Noted Time PHQ-9 Depression Total Score: 22 024 2:02 PM EDT documented as of this encounter Care Teams Snowboard Instructor Relationship Specialty Start Date End Date Marian Crook MD [address] [place] [address] PCP - General Internal Medicine 09/12/23 documented as of this encounter
--- OUTSIDE RECORDS SUMMARY | 2024-06-25 16:26 | XMS_ITS | Encounter Summary ---
Author Organization [employer] Address 75 [facility] 7t [place] [address] Care Team Providers Care Preforming Machine Operator Name Role Phone Marian Crook MD Primary Care Provider + Reason for Visit * Reason Onset Date Comments Med Refill 03/25/2024 Encounter Details Date Type Department Care Team ([facility] st Contact Info) Description 03/25/2024 Refill [facility] [address] [place] [address] Marian Crook MD [address] [place] [address] Moderate persistent asthma without complication Social History [...] EDT Office Visit [facility] [address] [place] [address] Marian Crook MD [address] [place] [address] documented as of this encounter Visit Diagnoses Diagnosis Moderate persistent asthma without complication documented in this encounter Additional Health Concerns Assessment Noted Time PHQ-9 Depression Total Score: 22 024 2:02 PM EDT documented as of this encounter Care Teams Preforming Machine Operator Relationship Specialty Start Date End Date Marian Crook MD [address] [place] [address] PCP - General Internal Medicine 09/12/23 documented as of this encounter
--- OUTSIDE RECORDS SUMMARY | 2024-06-25 16:26 | XMS_ITS | Encounter Summary ---
Author Organization [employer] Address 75 [facility] 7t [place] [address] Care Team Providers Care Thermoforming Operator Name Role Phone Marian Crook MD Primary Care Provider + Reason for Visit * Reason Onset Date Comments Med Refill 03/25/2024 Encounter Details Date Type Department Care Team (Late st Contact Info) Description 03/25/2024 Refill [facility] [address] [place] [address] Marian Crook MD [address] [place] [address] Social History Tobacco Use Types Packs/Day Years [...] Office Visit [facility] [address] [place] [address] Marian Crook MD [address] [place] [address] documented as of this encounter Visit Diagnoses Not on filedocumented in this encounter Additional Health Concerns Assessment Noted Time PHQ-9 Depression Total Score: 22 024 2:02 PM EDT documented as of this encounter Care Teams Thermoforming Operator Relationship Specialty Start Date End Date Marian Crook MD [address] [place] [address] PCP - General Internal Medicine 09/12/23 documented as of this encounter
--- OUTSIDE RECORDS SUMMARY | 2024-06-25 16:26 | XMS_ITS | Encounter Summary ---
Author Organization [employer] Address [address] [facility] [address] [place] [address] Care Team Providers Care Supervisor Fabrication Department Name Role Phone Marian Crook MD Primary Care Provider + Reason for Visit * Reason Comments Pre-visit Planning SDOH screening negat john and tobacco screening negative Encounter Details Date Type Department Care Team ([facility] st Contact Info) Description 06/23/2024 Patient Outreach [facility] MEDICINE [address] [place] [address] Marian Crook MD [address] [place] [address] Pre-visit Planning (SDOH screening negative and tobacco [...] the past 12 months, has t he [employer] threatened to shut off services in your [...] 11:45 AM EDT Office Visit [facility] MEDICINE [address] [place] [address] Marian Crook MD [address], [place] [phone] documented as of this encounter Visit Diagnoses Not on filedocumented in this encounter Additional Health Concerns Assessment Noted Time PHQ-9 Depression Total Score: 22 024 2:02 PM EDT documented as of this encounter Care Teams Supervisor Fabrication Department Relationship Specialty Start Date End Date Marian Crook MD [address] [place] [id number] PCP - General Internal Medicine 09/12/23 documented as of this encounter
--- OUTSIDE RECORDS SUMMARY | 2024-06-25 16:26 | XMS_ITS | Encounter Summary ---
Author Organization [employer] Address [address] [facility] [address] [place] [address] Care Team Providers Care Senior Business Architect Name Role Phone Marian Crook MD Primary Care Provider + Reason for Visit * Reason Onset Date Comments Med Refill 03/25/2024 Encounter Details Date Type Department Care Team (Late st Contact Info) Description 03/25/2024 Refill [facility] MEDICINE [address] [place] [address] Claritza Leonard DO [address] [place] [address] Social History Tobacco Use Types Packs/Day Years [...] AM EDT Office Visit [facility] MEDICINE [address] [place] [address] Marian Crook MD [address] [place] [address] documented as of this encounter Visit Diagnoses Not on filedocumented in this encounter Additional Health Concerns Assessment Noted Time PHQ-9 Depression Total Score: 22 024 2:02 PM EDT documented as of this encounter Care Teams Senior Business Architect Relationship Specialty Start Date End Date Marian Crook MD [address] [place] [id number] PCP - General Internal Medicine 09/12/23 documented as of this encounter
--- OUTSIDE RECORDS SUMMARY | 2024-06-25 16:26 | XMS_ITS | Encounter Summary ---
Author Organization [facility] Address [address] [place] [address] [address] [place] [address] Care Team Providers Care Harvest Supervisor Name Role Phone Marian Crook MD Primary Care Provider + Reason for Visit * Reason Comments Med Refill Encounter Details Date Type Department Care Team (Late Contact Info) Description 11/27/2023 Refill [facility] MEDICINE [address] [place] [phone] Marian Crook MD [address] [place], [place] [phone] Social History Tobacco Use Types Packs/Day Years [...] Description 07/02/2024 11:45 AM EDT Office Visit [facility] MEDICINE [address] [place] [phone] Marian Crook MD [address] [place], [place] [phone] documented as of this encounter Visit Diagnoses Not on filedocumented in this encounter Additional Health Concerns Assessment Noted Time PHQ-9 Depression Total Score: 16 023 3:25 PM EDT documented as of this encounter Care Teams Harvest Supervisor Relationship Specialty Start Date End Date Marian Crook MD [address] [place] [address] PCP - General Internal Medicine 09/12/23 documented as of this encounter
--- OUTSIDE RECORDS SUMMARY | 2024-06-25 16:26 | XMS_ITS | Clinical Summary ---
Author Organization [employer] Address [address] [place] [address] [address] [place] [address] Care Team Providers Care Mold Sprayer Name Role Phone Marian Crook MD Primary [...] told her to reach out to family law paralegal to help her write a letter so that housing give her some more time to get the letter from provider. She will res tart Effexor for anxiety and fu with me in 6m Encounters Date Type Department Care Team Description 06/24/2024 Orders Only [facility] [place] [address] Marian Crook MD Bilateral primary osteoarthritis of knee (Primary Dx) 06/23/2024 Patient Outreach [facility] [address] [place] [address] Marian Crook MD Pre-visit Planning (SDOH screening negative and tobacco screening negative) 06/18/2024 Orders Only GENERIC EXTERNAL DATA DEPARTMENT Provider, Generic External Data 06/17/[address] [facility] [address] [place] [address] Marian Crook MD 06/05/[address] [facility] [address] [place] [address] Marian Crook MD 06/05/[address] [facility] [address] [place] [phone] Claritza Leonard DO 06/04/2024 Population Health Risk Score [facility] Department [address] [phone] Provider, Population Health Generic 06/02/[address] [facility] [address] [place] [address] Marian Crook MD Med Refill 06/02/[address] [facility] [address] [place] [address] Marian Crook MD Referral 06/02/[address] [facility] [address] [place] [address] Marian Crook MD 05/28/2024 3:15 PM EST Office Visit [facility] [address] [place] [address] Tata Fink, JUAN Chronic pain of both knees (Primary Dx) 05/26/[address] [facility] [address] [place] [address], [place] [address] Mraian Crook MD Nurse Triage 05/13/[address] [facility] [address] [facility] [address] Marian Crook MD Moderate persistent asthma without complication 05/07/[address] [facility] [address] [place] [address] Marian Crook MD 05/05/2024 Orders Only GENERIC EXTERNAL DATA DEPARTMENT Provider, Generic External Data 04/29/2024 Orders Only [facility] [address] [place] [address] Claritza Leonard DO Bilateral renal cysts (Primary Dx); Uterine leiomyoma, unspecified location; Excessive bleeding in premenopausal period 04/29/[address] [facility] [address] [place] [address] Marian Crook MD Nurse Triage 04/27/2024 Orders Only GENERIC EXTERNAL DATA DEPARTMENT Provider, Generic External Data 04/26/2024 Orders Only GENERIC EXTERNAL DATA DEPARTMENT Provider, Generic External Data 04/26/[address] [facility] [address] [place] [address] Lina Yarbrough, MOIRA Results 04/23/2024 Telephone [facility] [address] [place] [address] Marian Crook MD Tianna recall 04/13/[address] [facility] [address] [place] [address] Marian Crook MD 04/09/2024 Orders Only [facility] [address] [place] [address] Claritza Leonard DO Abnormal MRI, lumbar spine (Primary Dx) 03/30/[address] [place] [address] Marian Crook MD Results 03/30/[address] [facility] [address] [place] [address] Marian Crook MD Stable Imaging Letter 03/30/[address] [address] Marian Crook MD Call Back Requested 03/27/2024 [...] [facility] [address] [place] [address] Marian Crook MD [address] [place], [place] [phone] Health Maintenance Due Date Last Done Comments [...] patientsymptoms to aid in the diagnosis of MD. 06/18/2024 11:0 8 AM EDT 06/18/2024 11:15 AM EDT us Generic External Data Provider LAB BLOOD ORDERAB LES Final Result [facility] [address] [place] [address] [phone] * XR Chest 1 View (06/18/2024 9:10 AM EDT) Anatomical Region Laterality Modality Chest Radiographic Irais ging 06/18/2024 9:10 AM EDT Narrative 06/18/2024 9:37 AM EDT ? [facility] ?[address] ?[place] [address] ?XRay Report ? Signed ? Patient: Corina Nielsen ?MR#: [id number] ?? [id number] ? : 1975 ?Acct:[id number] ? Age/Sex: 49 / F ?ADM Date: 06/18/24 ? Loc: HO.ED ? Attending Dr: ? Ordering Physician: Lisa Nguyen DO ?? Date of Service: 06/18/24 ?? Procedure(s): XR chest 1V ?? Accession Number(s): [id number] ? cc: Marian Crook MD; Lisa Nguyen [...] ? DD/ 0910 ? TD/TT: 06/18/24924 ? [employer] Architect: ? Procedure Note Donotuseinterpreter, Image - 06/18/[address] [address] XRay Report Signed Patient: Yarelis Nielsen#: [id number] : 1975Acct:[id number] Age/Sex: 49 / FADM Date: 06/18/24 Loc: .ED Attending Dr: Ordering Physician: Lisa Nguyen DO Date of Service: 06/18/24 Procedure(s): XR chest 1V Accession Number(s): [id number] cc: Marian Crook MD; Lisa Nguyen DO [...] in OV> 06/18/24933 DD/ 9 TD/TT: 06/18/24924 [employer] Architect: [facility] External Provider IMG XR PROCEDURES Final Result * US VENOUS DUPLEX LE LT (06/18/2024 9:09 AM EDT) Anatomical Region Laterality Modality Abdomen Ultrasound 06/18/2024 9:09 AM EDT Narrative 06/18/2024 9:20 AM EDT ? [facility] ?[address] ?[place] [address] ? Ultrasound Report ? Signed ? Patient: Abrams James,Corina ?MR#: [id number] ?? [id number] ? : 1975 ?Acct:[id number] ? Age/Sex: 49 / F ?ADM Date: 06/18/24 ? Loc: HO.ED ? Attending Dr: ? Ordering Physician: Lisa Nguyen DO ?? Date of Service: 06/18/24 ?? Procedure(s): US venous duplex LE LT ?? Accession Number(s): [id number] ? cc: Marian Crook MD; Lisa Nguyen [...] DD/ 0909 ? TD/TT: 06/18/24 0914 ? [employer] Architect: ? Procedure Note Carli Mesa - 06/18/[address] [address] Ultrasound Report Signed Patient: Nika NielsenMagdiel#: [id number] : 1975Acct:[id number] Age/Sex: 49 / FADM Date: 06/18/24 Loc: HO.ED Attending Dr: Ordering Physician: Lisa Nguyen DO Date of Service: 06/18/24 Procedure(s): US venous duplex LE LT Accession Number(s): [id number] cc: Marian Crook MD; Lisa Nguyen DO [...] OV> 06/18/24917 DD/ 8 TD/TT: 06/18/24 0914 [employer] Architect: [facility] External Provider IMG US PROCEDURES Final Result * D Dimer High Sensitivity (06/18/2024 8:29 AM EDT) Pathologist [facility] D Dimer High Sensitivity <150 NG/ML [facility] Comment:D-DIMER HS REFERENCE RANGENote: Our assay [...] Provider LAB BLOOD ORDERAB LES Final Result [facility] [address] [place] [address] [phone] * (ABNORMAL) CBC auto differential (06/18/2024 8:29 AM EDT) Only the most recent of2 resultswithin the time period is included. White Blood Count 6.1 4.8 - 10.8 X10*3/uL [facility] Red Blood Count 4.36 4.20 - 5.50 X10*6/uL [facility] Hemoglobin 13.5 12.0 - 16.0 g/dl [facility] Hematocrit 40.2 37.0 - 47.0 % [facility] Mean Corpuscular Volume 92.2 80.0 - 98.0 fL [facility] Mean Corpuscular Hemoglobin 31.0 27.0 - 33.0 pg [facility] Mean Corpuscular HGB Conc 33.6 31.0 - 35.0 g/dl [facility] Red Cell Distribution Width 13.5 11.0 - 16.0 % [facility] Platelet Count 192 160 - 400 X10*3/uL [facility] Mean Platelet Volume 10.5 9.4 - 12.3 fL [facility] Neutrophils Percent Auto 76.0(H) 45 - 73 % [facility] Imm Gran Pct Auto 0.3 0.0 - 0.4 % [facility] Lymphocytes Percent Auto 16.3(L) 20 - 40 % [facility] Monocytes Percent Auto 6.2 2 - 11 % [facility] Eosinophils Percent Auto 0.7 0 - 4 % [facility] Basophils Percent Auto 0.5 0 - 2 % [facility] NRBC Pct Auto 0.0 0.0 - 0.2 /100WBC [facility] Neutrophils Absolute Auto 4.7 2.0 - 8.3 x10*3/uL [facility] Imm Gran Abs Auto 0.02 0.00 - 0.03 X10*3/uL [facility] Lymphocytes Absolute Auto 1.0(L) 1.2 - 4.9 X10*3/uL [facility] Monocytes Absolute Auto 0.4 0.1 - 1.2 X10*3/uL [facility] Eosinophils Absolute Auto 0.0 0.0 - 0.4 X10*3/uL [facility] Basophils Absolute Auto 0.0 0.0 - 0.2 X10*3/uL [facility] NRBC Abs Auto 0.000 0.0 - 0.012 X10*3/uL [facility] 06/18/2024 8:29 AM EDT 06/18/2024 8:32 AM EDT us Generic External Data Provider LAB BLOOD ORDERAB LES Final Result Performing Organization Address [facility] Co de Phone Number [facility] [address] [place] [phone] * Prothrombin Time-INR (06/18/2024 8:29 AM EDT) Only the most recent of2 resultswithin the time period is included. Prothrombin Time 12.3 10.9 - 12.4 SEC [facility] INTERNATIONAL NORM RATIO 1.1 0.9 - 1.1 [facility] Comment:INTERNATIONAL NORMAL IZED RATIO (INR) [...] ORDERAB LES Final Result Performing Organization Address City/[facility]/ZIP Co de Phone Number [facility] [address] [place] [address] [phone] * Magnesium (06/18/2024 8:29 AM EDT) Only the most recent of2 resultswithin the time period is included. Magnesium 1.9 1.6 - 2.6 mg/dL [facility] 06/18/2024 8:29 AM EDT 06/18/2024 8:32 AM EDT us Generic External Data Provider LAB BLOOD ORDERAB LES Final Result [facility] [address] [place] [address] [phone] * (ABNORMAL) Comprehensive Metabolic Panel (06/18/2024 8:29 AM EDT) Only the most recent of2 resultswithin the time period is included. Sodium 138 135 - 145 mmol/L [facility] Potassium 3.9 3.3 - 5.1 mmol/L [facility] Chloride 112(H) 96 - 108 mmol/L [facility] Carbon Dioxide 21(L) 22 - 29 mmol/L [facility] Anion Gap 9(L) 12 - 20 [facility] Urea Nitrogen (BUN) 15 9 - 16 mg/dL [facility] Creatinine, Serum 0.70 0.5 - 1.4 mg/dL [facility] Creatinine Clr Calc Pharmacy 95.9 [facility] Comment:Provided height and weight: 160.02 cm,77.7 kg.eGFR (calculated from the MDRD study equation) and eCrCl(calculated from the Cockcroft-Gault equation) are based ondifferent parameters and may not yield comparable results.If eCrCl result is absurd, please check patient'sheight/weight. Estimated Glomerular Filt Rate >60 [facility] Comment:Chronic Kidney Disea se: Estimated GFR < 60 mL/min/1.84k7Fjfysi Kidney Disease: Estimated GFR < 15 mL/min/1.73m2 Glucose 93 60 - 115 mg/dL [facility] Calcium 8.9 8.4 - 10.2 mg/dL [facility] Bilirubin, Total 0.5 0.0 - 1.0 mg/dL [facility] Aspartate Amino Transferase 21 5 - 31 U/L [facility] Alanine Aminotransferase 16 0 - 31 U/L [facility] Total Protein 7.0 6.5 - 8.0 g/dL [facility] Albumin Level 4.1 3.5 - 5.0 g/dL [facility] Alkaline Phosphatase 64 39 - 117 U/L [facility] 06/18/2024 8:29 AM EDT 06/18/2024 8:32 AM EDT us Generic External Data Provider LAB BLOOD ORDERAB LES Final Result Performing Organization Address City/State/[facility] Co de Phone Number [facility] [address] [place] [address] [phone] * XR Knee 4+ Views Right (05/31/2024 2:29 PM EDT) Anatomical Region Laterality Modality Lower Extremities, Knee Right Radiogra phic Imaging 05/31/2024 2:29 PM EDT Narrative 05/31/2024 3:04 PM EDT ?[facility] ?[address] ?[place] [address] ?XRay Report ? Signed ? Patient: Jose Alberto James,Corina ?MR#: [id number] ?? [id number] ? : 1975 ?Acct:[id number] ? Age/Sex: 49 / F ?ADM Date: 03/10/25 ? Loc: HO.HHCX ? Attending Jacqueline Payton Appram ? Ordering Physician: Appram,Tata ?? Date of Service: 05/31/24 ?? Procedure(s): XR knee RT 4V ?? Accession Number(s): [id number] ? cc: Tata Fink ? EXAMINATION: ?? [...] DD/ 1429 ? TD/TT: 05/31/24 1455 ? [employer] Architect: ? Procedure Note Carli Mesa - 05/31/[address] [address] XRay Report Signed Patient: Yarelis Nielsen#: [id number] : 1975Acct:[id number] Age/Sex: 49 / FADM Date: 05/31/24 Loc: HO.HHCX Attending Dr: Tata Fink Ordering Physician: Tata Fink Date of Service: 05/31/24 Procedure(s): XR knee RT 4V Accession Number(s): [id number] cc: Tata Fink EXAMINATION: XR KNEE, RIGHT [...] 05/31/2024 03:01 PM EDT Dictated By: Valentino Cotter MD Signed By: <Electronically signed by Valentino Jones MDin OV> 05/31/24 1501 DD/ 1429 TD/TT: 05/31/24 1455 [employer] Architect: us Tata Phillipsm COMPENSATION SPECIALIST IMG XR PROCEDURES Final Result * XR Knee 4+ Views Left (05/31/2024 2:29 PM EDT) Anatomical Region Laterality Modality Lower Extremities, Knee Left Radiogra phic Imaging 05/31/2024 2:29 PM EDT Narrative 05/31/2024 3:05 PM EDT ?[facility] ?[address] ?[place] [address] ?XRay Report ? Signed ? Patient: Jose Alberto James,Corina ?MR#: [id number] ?? [id number] ? : 1975 ?Acct:[id number] ? Age/Sex: 49 / F ?ADM Date: 05/31/24 ? Loc: HO.HHCX ? Attending Dr: Tata Fink ? Ordering Physician: Tata Fink ?? Date of Service: 05/31/24 ?? Procedure(s): XR knee LT 4V ?? Accession Number(s): [id number] ? cc: Tata Fink ? EXAMINATION: ?? [...] DD/ 1429 ? TD/TT: 05/31/24 1455 ? [employer] Architect: ? Procedure Note Bonita, Image - 05/31/2024 [facility] [address] [place] [address] XRay Report Signed Patient: Yarelis Nielsen#: [id number] : 1975Acct:[id number] Age/Sex: 49 / FADM Date: 05/31/24 Loc: .HHX Attending Dr: Tata Fink Ordering Physician: Tata Fink Date of Service: 05/31/24 Procedure(s): XR knee LT 4V Accession Number(s): [id number] cc: Tata Fink EXAMINATION: XR KNEE, LEFT [...] 05/31/24 1502 DD/ 1429 TD/TT: 05/31/24 1455 [employer] Architect: Tata Fink COMPENSATION SPECIALIST IMG XR PROCEDURES Final Result * TSH with Reflex to Free T4 (05/05/2024 11:23 AM EST) Only the most recent of2 resultswithin the time period is included. TSH reflex Free T4 0.78 0.32 - 4.0 uIU/mL [facility] 05/05/2024 11:2 3 AM EST 05/05/2024 11:23 AM EST us Generic External Data Provider LAB BLOOD ORDERAB LES Final Result Performing Organization Address City/[facility]/ZIP Co de Phone Number [facility] [address] [place] [phone] * (ABNORMAL) CBC (05/05/2024 11:23 AM EST) Pathologist [facility] White Blood Count 5.5 4.8 - 10.8 X10*3/uL [facility] Red Blood Count 3.92(L) 4.20 - 5.50 X10*6/uL [facility] Hemoglobin 12.0 12.0 - 16.0 g/dl [facility] Hematocrit 36.3(L) 37.0 - 47.0 % [facility] Mean Corpuscular Volume 92.6 80.0 - 98.0 fL [facility] Mean Corpuscular Hemoglobin 30.6 27.0 - 33.0 pg [facility] Mean Corpuscular HGB Conc 33.1 31.0 - 35.0 g/dl [facility] Red Cell Distribution Width 12.3 11.0 - 16.0 % [facility] Platelet Count 264 160 - 400 X10*3/uL [facility] Mean Platelet Volume 11.1 9.4 - 12.3 [facility] NRBC Pct Auto 0.0 0.0 - 0.2 /100WBC [facility] NRBC Abs Auto 0.000 0.0 - 0.012 X10*3/uL [facility] 05/05/2024 11:2 3 AM EST 05/05/2024 11:23 AM EST us Generic External Data Provider LAB BLOOD ORDERAB LES Final Result [facility] [address] [place] [phone] * hCG, Total, Quantitative (05/05/2024 11:23 AM EST) HCG Quantitative <2 mIU/mL [facility] Comment:Weeks post LMP Appr oximate hCG(Last Menstrual Period) Range (mIU/ml)3 - 4 weeks 9 - 1304 - 5 weeks 75 - 2,6005 - 6 weeks 850 - 20,8006 - 7 weeks 4000 - 100,2007 - 12 weeks 11,500 - 289,51161 - 16 weeks 18,300 - 137,19415 - 29 weeks (2nd trimester) 1,400 - 53,79807 - 41 weeks (3rd trimester) 940 - [...] Provider LAB BLOOD ORDERAB LES Final Result [facility] [address] [place] [phone] * LH (05/05/2024 11:23 AM EST) Lutenizing Hormone 7.8 mIU/mL [facility] Comment:Reference Range Foll icular Phase 1.9-12.5 Mid-Cycle Peak 8.7-76.3 Luteal Phase 0.5-16.9 Postmenopausal 10.0-54.7THIS TEST WAS PERFORMED AT:[employer] [place] [id number] OLIVAS MD 05/05/2024 11:2 3 AM EST 05/05/2024 11:23 AM EST us Generic External Data Provider LAB BLOOD ORDERAB LES Final Result Performing Organization Address [facility] Co de Phone Number [facility] [address] [place] [phone] * FSH (05/05/2024 11:23 AM EST) Pathologist [facility] Follicle Stimulating Hormone 14.4 mIU/mL [facility] Comment:Reference Range Foll icular Phase 2.5-10.2 Mid-cycle Peak 3.1-17.7 Luteal Phase 1.5- 9.1 Postmenopausal 23.0-116.3THIS TEST WAS PERFORMED AT:[employer] [place] [id number] OLIVAS MD 05/05/2024 11:2 3 AM EST 05/05/2024 11:23 AM EST Generic External Data Provider LAB BLOOD ORDERAB LES Final Result Performing Organization Address [facility] de Phone Number [facility] [address] [place] [phone] * Chlamydia/N. Gonorrhoeae RNA, TMA, Urogenitial (05/05/2024 11:19 AM EST) [facility] CT PCR NOT DETECTED Not Detect. [facility] Comment:A not detected test result [...] psychologicalconsequences. NG PCR NOT DETECTED Not Detect. [facility] Comment:A not detected test result [...] AM EST 05/05/2024 11:56 AM EST Narrative [facility] - 05/06/2024 7:21 AM EST Vaginal Generic External Data Provider LAB MICROBIOLOGY - GENERAL ORDERABLES Final Result [facility] [address] [place] [phone] * HPV DNA, Low/High Risk (05/05/2024 10:22 AM EST) HPV High Risk Negative Negative [facility] HPV Genotype 16 Negative Negative [facility] HPV Genotype 18 Negative Negative [facility] Comment:HPV testing performe d at [facility] (CLIA#[id number]), [address] [place] [address].Testing for HPV was performed using the Jon [...] Provider LAB BLOOD ORDERAB LES Final Result [facility] [address] [place] [phone] * Pap Smear (05/05/2024 10:22 AM EST) 05/05/2024 10:2 2 AM EST 05/06/2024 6:10 AM EST Narrative [facility] - 05/11/2024 9:16 AM EST ----- ------- Name: Corina Nielsen ?Age/Sex: 49/F ? : 1975 Unit#: [id number] ?? Attend Dr: Pj Posadas MD ?Re05/05/24 ?Status: DEP REF ? Location: HO.LNP ?Disch: ? ----- ------- SPEC : [id number] ? RECD: 05/06/24 ? STATUS: ??SOUT ? REQ NUM: [id number] ? LAURA: 05/05/242 ? SUBM DR: Pj [...] Copies To: ?? Marian Crook MD ?? [facility] ?? [address] [facility] ?? [place] [address] ?? [phone] ?? Pj Posadas MD ?? [facility] ?? [address] [facility] [address] ?? [place] [address] ?? [phone] ----- ------- Signed (signature on file) SCARLET Hernandez (ASCP) 05/11/24 0916 ? ----- ------- ? END OF REPORT ? us Generic External Data Provider LAB CYTOLOGY SHONA VIRAMONTES Final Result [facility] [address] [place] [phone] * (ABNORMAL) Urinalysis, Complete, with Reflex to Culture (04/27/2024 12:31 AM EST) Color Urine Yellow [facility] Appearance Urine Clear [facility] PH 5.5 5.0 - 9.0 [facility] Glucose Urine UA Negative Negative mg/dL [facility] Urine Blood Moderate (2+)(A) Negative [facility] Specific Spencer - Urine 1.020 1.005 - 1.025 [facility] Urine Protein Negative Neg-Trace mg/dL [facility] Urine Ketones Negative Negative mg/dL [facility] Nitrite Urine Negative Negative [facility] Leukocyte Esterase Urine Negative Negative [facility] RBC Urine >20(A) 0 - 2 /HPF [facility] Urine WBC 0-5 0 - 5 /HPF [facility] Urine Squamous Epithelial Cell 0-2 0 - 2 /HPF [facility] Urine Bacteria None Seen None Seen [facility] Hyaline Casts, Urine 0-2 0 - 2 /LPF [facility] 04/27/2024 12:3 1 AM EST 04/27/2024 12:34 AM EST Narrative [facility] - 04/27/2024 12:42 AM EST Urine, Clean Catch us Generic External Data Provider LAB URINE ORDERAB LES Final Result Performing Organization Address [facility] de Phone Number [facility] [address] [place] [address] [phone] * Partial Thromboplastin Time, Activated (APTT) (04/26/2024 4:47 PM EST) Partial Thromboplastin Time 31.7 26.0 - 36.8 SEC [facility] Comment:For information rega rding the monitoring of direct thrombininhibitors, please refer to Pharmacy. 04/26/2024 4:47 PM EST 04/26/2024 4:50 PM EST us Generic External Data Provider LAB BLOOD ORDERAB LES Final Result Performing Organization Address [facility] de Phone Number [facility] [address] [place] [phone] * US RENAL BI (04/21/2024 12:04 PM EST) Anatomical Region Laterality Modality Abdomen Ultrasound 04/21/2024 12:0 4 PM EST Narrative 04/21/2024 12:05 PM EST ? [facility] ?[address] ?[place] [address] ? Ultrasound Report ? Signed ? Patient: Abrams James,Corina ?MR#: [id number] ?? [id number] ? : 1975 ?Acct:[id number] ? Age/Sex: 49 / F ?ADM Date: 01/28/25 ? Loc: HO.US ? Attending Dr: Claritza Leonard DO ? Ordering Physician: Claritza Leonard DO ?? Date of Service: 04/20/24 ?? Procedure(s): US renal BI ?? Accession Number(s): [id number] ? cc: Claritza Leonard DO ? CLINICAL [...] DD/ 1204 ? TD/TT: 04/21/24 1204 ? [employer] Architect: ? Procedure Note Carli Mesa - 04/21/2024 [place] [address] Ultrasound Report Signed Patient: Yarelis Nielsen#: [id number] : 1975Acct:[id number] Age/Sex: 49 / FADM Date: 04/20/24 Loc: HO.US Attending Dr: Claritza Leonard DO Ordering Physician: Claritza Leonard DO Date of Service: 04/20/24 Procedure(s): US renal BI Accession Number(s): [id number] cc: Claritza Leonard DO CLINICAL HISTORY: probable [...] 04/21/24 1204 DD/ 1204 TD/TT: 04/21/24 1204 [employer] Architect: us Claritza Leonard DO IMG US PROCEDURES Edited Res ult - Final * US Pelvis Transvaginal (04/20/2024 3:25 PM EST) Anatomical Region Laterality Modality Pelvis Ultrasound 04/20/2024 3:25 PM EST Narrative 04/21/2024 9:28 AM EST ? [facility] ?[address] ?[place] [address] ? Ultrasound Report ? Signed ? Patient: Corina Nielsen ?MR#: [id number] ?? [id number] ? : 1975 ?Acct:[id number] ? Age/Sex: 49 / F ?ADM Date: 04/20/24 ? Loc: HO.US ? Attending Dr: Claritza Leonard DO ? Ordering Physician: Claritza Leonard DO ?? Date of Service: 04/20/24 ?? Procedure(s): US pelvic and transvaginal ?? Accession Number(s): [id number] ? cc: Claritza Leonard DO ? EXAMINATION: [...] DD/ 1525 ? TD/TT: 04/20/24 1555 ? [employer] Architect: ? Procedure Note Bonita, Carli - 04/21/[address] [address] Ultrasound Report Signed Patient: Yarelis Nielsen#: [id number] : 1975Acct:[id number] Age/Sex: 49 / FADM Date: 04/20/24 Loc: HO.US Attending Dr: Claritza Leonard DO Ordering Physician: Claritza Leonard DO Date of Service: 04/20/24 Procedure(s): US pelvic and transvaginal Accession Number(s): [id number] cc: Claritza Leonard DO EXAMINATION: US PELVIS [...] 04/21/24 0926 DD/ 1525 TD/TT: 04/20/24 1555 [employer] Architect: us Claritza Leonard DO IMG US PROCEDURES Edited Res ult - Final * XR Hip 2 or 3 Views Left (03/29/2024 1:06 PM EST) Anatomical Region Laterality Modality Lower Extremities, Hip Left Radiograp hic Imaging 03/29/2024 1:06 PM EST Narrative 03/29/2024 1:08 PM EST ? [facility] ?[address] ?[place] [address] ?XRay Report ? Signed ? Patient: Abrams James,Corina ?MR#: [id number] ?? [id number] ? : 1975 ?Acct:[id number] ? Age/Sex: 49 / F ?ADM Date: 03/26/24 ? Loc: HO.XRAY ? Attending Dr: Jada CLEMENT ? Ordering Physician: Jada Cervantes ?? Date of Service: 03/26/24 ?? Procedure(s): XR hip LT min 2V w/wo pel ?? Accession Number(s): [id number] ? cc: Jada Cervantes; Marian Crook MD [...] DD/ 1306 ? TD/TT: 03/29/24 1306 ? [employer] Architect: ? Procedure Note Carli Mesa - 03/29/[address] [address] XRay Report Signed Patient: Yarelis Nielsen#: [id number] : 1975Acct:[id number] Age/Sex: 49 / FADM Date: 03/26/24 Loc: HO.EZEQUIELAY Attending Dr: Jada CLEMENT Ordering Physician: Jada Cervantes Date of Service: 03/26/24 Procedure(s): XR hip LT min 2V w/wo pel Accession Number(s): [id number] cc: Jada Cervantes; Marian Crook MD CLINICAL [...] 03/29/24 1307 DD/ 1306 TD/TT: 03/29/24 1306 [employer] Architect: [facility] External Provider IMG XR PROCEDURES Edited Result - Final * Hepatitis C Ab (03/27/2024 10:19 AM EST) Hepatitis C Antibody Nonreactive Nonreactive [facility] Comment:Antibodies to HCV no t detected; does not exclude early acuteHCV infection. 03/27/2024 10:1 9 AM EST 03/27/2024 10:19 AM EST Generic External Data Provider LAB BLOOD ORDERAB LES Final Result Performing Organization Address City/[facility] Co de Phone Number [facility] [address] [place] [phone] * (ABNORMAL) Iron And Total Iron Binding Capacity (03/27/2024 10:19 AM EST) Iron 298(H) 30 - 160 mcg/dL [facility] Total Iron Binding Capacity 323 228 - 428 mcg/dL [facility] Percent Iron Saturation 92(H) 15 - 50 % [facility] Unsaturated Iron Binding <25 ug/dL [facility] 03/27/2024 10:1 9 AM EST 03/27/2024 10:19 AM EST Generic External Data Provider LAB BLOOD ORDERAB LES Final Result Performing Organization Address [facility] Co de Phone Number [facility] [address] [place] [phone] * Hepatitis A Antibody, Total (03/27/2024 10:19 AM EST) Hepatitis A Antibody IgG Nonreactive Nonreactive [facility] 03/27/2024 10:1 9 AM EST 03/27/2024 10:19 AM EST Generic External Data Provider LAB BLOOD ORDERAB LES Final Result Performing Organization Address [facility] Co de Phone Number [facility] [address] [place] [phone] * Tissue Transglutaminase Antibody, IgA (03/27/2024 10:19 AM EST) Pathologist [facility] Transglutaminase IgA <1.0 U/mL [facility] Comment:Value Interpretation ----- <15.0 Antibody not detected> or = 15.0 Antibody detectedTHIS TEST WAS PERFORMED AT:[employer] [place] [phone] OLIVAS MD 03/27/2024 10:1 9 AM EST 03/27/2024 10:19 AM EST Generic External Data Provider LAB BLOOD ORDERAB LES Final Result Performing Organization Address [facility] Phone Number [facility] [address] [place] [phone] * Hepatitis B surface antigen, EIA (03/27/2024 10:19 AM EST) Hepatitis B Surface Ag Negative Negative [facility] 03/27/2024 10:1 9 AM EST 03/27/2024 10:19 AM EST Generic External Data Provider LAB BLOOD ORDERAB LES Final Result Performing Organization Address [facility] Co de Phone Number [facility] [address] [place] [phone] * Hepatitis B Core Antibody, Total (03/27/2024 10:19 AM EST) Pathologist [facility] Hepatitis B Core Antibody Nonreactive Nonreactive [facility] 03/27/2024 10:1 9 AM EST 03/27/2024 10:19 AM EST us Generic External Data Provider LAB BLOOD ORDERAB LES Final Result [facility] [address] [place] [phone] * HIV-1/2 Antigen and Antibodies, Fourth Generation, with Reflexes (03/27/2024 10:19 AM EST) [facility] HIV AB/AG Nonreactive Nonreactive [facility] Comment:HIV-1 p24 Ag and/or HIV-1/HIV-2 Ab not detected.A test result that is nonreactive does not exclude thepossibility of exposure to or infection with HIV-1 and/orHIV-2. Nonreactive results in this assay for individualswith prior exposure to HIV-1 and/or HIV-2 may be due toantigen and antibody levels that are below the limit ofdetection of this assay.The [facility] HIV Ag/Ab Combo assay result andsupplemental assay results should be interpreted inconjunction with the patient's clinical presentation,history and other laboratory results. If the results areinconsistent with clinical evidence, additional testing issuggested to confirm the result. 03/27/2024 10:1 9 AM EST 03/27/2024 10:19 AM EST us Generic External Data Provider LAB BLOOD ORDERAB LES Final Result [facility] [address] [place] [phone] * Hepatitis B Surface Antibody, Qualitative (03/27/2024 10:19 AM EST) Pathologist [facility] ~Hepatitis B Surface Antibody REACTIVE Nonreactive [facility] Comment:REACTIVE: > 11.99 mI U/mL 03/27/2024 10:1 9 AM EST 03/27/2024 10:19 AM EST us Generic External Data Provider LAB BLOOD ORDERAB LES Final Result Performing Organization Address [facility] Phone Number [facility] [address] [place] [phone] * C-reactive Protein (03/27/2024 10:19 AM EST) C Reactive Protein <0.04 < or = 0.50 mg/dL [facility] 03/27/2024 10:1 9 AM EST 03/27/2024 10:19 AM EST Generic External Data Provider LAB BLOOD ORDERAB LES Final Result Performing Organization Address [facility] Phone Number [facility] [address] [place] [phone] * Immunoglobulin A (03/27/2024 10:19 AM EST) Immunoglobulin A 269 47 - 310 mg/dL [facility] Comment:THIS TEST WAS PERFOR MED AT:[employer] [address] [phone] OLIVAS MD 03/27/2024 10:1 9 AM EST 03/27/2024 10:19 AM EST Generic External Data Provider LAB BLOOD ORDERAB LES Final Result Performing Organization Address [facility] de Phone Number [facility] [address] [place] [phone] * Ferritin (03/27/2024 10:19 AM EST) Ferritin 12 10 - 250 ng/mL [facility] 03/27/2024 10:1 9 AM EST 03/27/2024 10:19 AM EST us Generic External Data Provider LAB BLOOD ORDERAB LES Final Result [facility] [address] [place] [phone] * Cologuard?? colon cancer screening (02/02/2024 9:15 AM EST) Cologuard Result Negative Negative 02/08/20 2:05 AM EST [employer] (CLIA #:[id number]) Comment: NEGATIVE TEST RESULT. A negative Cologuard [...] cancer. ??Following a negative Cologuard result, the [place] Cancer Society and U.S. Multi-Society Task Force screening guidelines recommend a Cologuard re-screening interval of 3 years. References: [place] [employer] Guideline for Colorectal Cancer Screening: https://www.cancer.org/cancer/qhgme-ytyzwx-syxqef/lkqsywzya-mjcymmdba-qsijqax/ac s-rec ommendations.html.; Hector ABERNATHY, Julio Cesar PEÑA, Janet TroncosoK, Colorectal Cancer Screening: Recommendations for Physicians and Patients from the U.S. Multi-Society Task Force on Colorectal Cancer Screening , Am J Gastroenterology 2017; 112:3292-6016. TEST DESCRIPTION: Composite algorithmic analysis of stool [...] Gonzalez et al, N Engl J Med 2014;370(14):8026-5345.) Cologuard may produce a false negative or false positive result (no colorectal cancer or precancerous polyp present at colonoscopy follow up). A negative Cologuard test result does not guarantee the absence of CRC or advanced adenoma (pre-cancer). The current Cologuard screening interval is every 3 years. ([place] Cancer Society and U.S. Multi-Society Task Force). Cologuard performance data in a 10,000 patient pivotal study using colonoscopy as the reference method can be accessed at the following location: www.Simplificare/results. Additional description of the Cologuard test process, warnings and precautions can be found at www.Flytivityrd.com. Stool specimen (specimen) Rectal contents / Unknown 02/02/2024 9:15 AM EST 02/03/2024 10:52 AM EST us Marian Crook MD LAB MOLECULAR DIAGNOSTIC S ORDERABLES Final Result [employer] (CLIA #:[id number]) [place] [place] [address] [place] [address], * BI Mammogram Screening Tomosynthesis Bilateral (12/05/2023 3:30 PM EDT) Anatomical Region Laterality Modality Breast Bilateral Mammography 12/05/2023 3:30 PM EDT Narrative 12/19/2023 8:58 AM EDT ? [facility] ? [address] ?[place] [address] ? Mammography Report ? Signed ? Patient: Corina Nielsen ?MR#: [id number] ?? [id number] ? : 1975 ?Acct:[id number] ? Age/Sex: 48 / F ?ADM Date: 12/05/23 ? Loc: HO.MAMMO ? Attending Dr: Marian Crook MD ? Ordering Physician: Marian Crook MD ?Results: 1Ne ?? gative ? Date of Service: 12/05/23 ?Follow Up: 1 Year From Orig ?? inal Mammogram ? Procedure(s): MM tomosynthesis screening BI ?? Accession Number(s): [id number] ? cc: Marian Crook MD ? EXAMINATION: [...] DD/ 1530 ? TD/TT: 12/05/23 1540 ? [employer] Architect: ? Procedure Note Carli Mesa - 12/19/2023 [place] [facility] [address] [place] [address] Mammography Report Signed Patient: Yarelis Nielsen#: [id number] : 1975Acct:[id number] Age/Sex: 48 / FADM Date: 12/05/23 Loc: HO.MAMMO Attending Dr: Marian Crook MD Ordering Physician: Marian Crook MDResults: 1Ne gative Date of Service: 12/05/23Follow Up: 1 Year From Orig inal Mammogram Procedure(s): MM tomosynthesis screening BI Accession Number(s): [id number] cc: Marian Crook MD EXAMINATION: MM SCREENING [...] 12/19/23 0855 DD/ 1530 TD/TT: 12/05/23 1540 [employer] Architect: Marian Crook MD IMG BI PROCEDURES Final Result from Last 3 Months or Most Recently Relevant to Health Maintenance Insurance [facility] Care Teams Mold Sprayer Relationship Specialty Start Date End Date Marian Crook MD [address] [place] [phone] PCP - General Internal Medicine 09/12/23
--- OUTSIDE RECORDS SUMMARY | 2024-06-25 16:26 | XMS_ITS | Encounter Summary ---
Author Organization [employer] Address [address] [facility] 7[address] [place] [address] Care Team Providers Care Golf Club Manager Name Role Phone Marian Crook MD Primary Care Provider + Reason for Visit * Reason Comments Med Change Request Encounter Details Date Type Department Care Team ([facility] st Contact Info) Description 06/17/2024 Refill [facility] [address] [place], [place] [phone] Marian Crook MD [address] [place] [address] Social History Tobacco Use Types Packs/Day Years [...] Description 07/02/2024 11:45 AM EDT Office Visit [facility] [address] [place] [address] Marian Crook MD [address] [place] [address] documented as of this encounter Visit Diagnoses Not on filedocumented in this encounter Additional Health Concerns Assessment Noted Time PHQ-9 Depression Total Score: 22 024 2:02 PM EDT documented as of this encounter Care Teams Golf Club Manager Relationship Specialty Start Date End Date Marian Crook MD [address] [place] [phone] PCP - General Internal Medicine 09/12/23 documented as of this encounter
== END 2024-06-25 13:46 | disposition home or self-care (01) ==
LOC: HO.LNP 13:45
PROVIDERS: PCP Internal Medicine; Visit Provider Obstetrics & Gynecology
DX: N93.9 Abnormal uterine and vaginal bleeding, unspecified (principal)
CPT/HCPCS: 58100; 88305

== ENCOUNTER 2024-06-25 13:45 | Outpatient (AMB) | payer OTHER, SELFPAY ==
--- NOTE | 2024-06-25 13:49 | A.OFFVIS_ITS ---
Intake Visit Reasons: EMB/Fibroid Filtration Operator: Filtration Operator Present (Maryuri) Accompanied by: Self / Same As Patient Allergies No Known Allergies [No Known Allergies*] Allergy (Verified 06/25/24 13:57) HPI Comments Details: Presenting for EMB [facility] Medical History delivery delivered Depression Anal fissure Hemorrhoids Chronic RLQ pain Polyuria Dizziness FILIBERTO (obstructive sleep apnea) Moderate persistent asthma in adult without complication Chronic low back pain Iron deficiency Arthritis History of asthma Surgical History Hx of colonoscopy History of esophagogastroduodenoscopy (EGD) S/P laparoscopic sleeve gastrectomy H/O abdominoplasty Family History Mother History of hypertension Arthritis Glaucoma Father Heart problem History of hypertension Brother Heart problem History of hypertension Sister History of hypertension Brother No problems noted. Brother No problems noted. Brother No problems noted. Brother No problems noted. Sister Ovarian cancer Sister No problems noted. Sister No problems noted. Social History Household Members: Spouse and Children Housing: House Are you a primary behavioral health care manager to a significant other at home: No Do you presently have visiting nurse or other home services: No Alcohol intake: current Alcohol intake frequency: holidays/special occasions only Patient Tobacco Use Status: Never used Tobacco service: No Current occupational status: employed Female Reproductive History Menstrual Age of Menarche: 14 Office Procedures Endometrial Biopsy Details: The patient was counseled regarding the indication and benefits of endometrial sampling to rule out endometrial pathology including not limited to endometrial hyperplasia or endometrial cancer and others; The alternatives (Either do nothing vs. hysteroscopy D&C) & the risks were discussed with the patient including but not limited: pain, uterine perforation, bleeding, infection, possible injury to bladder, bowel, ureter, possible need for blood transfusion with all its possible risks. The patient verbalized understanding all questions answered and signed consent. Urine test done in the office was negative The patient was placed into the dorsal lithotomy position; a speculum was inserted in the vagina. Using aseptic technique for the procedure, the cervix was cleansed with Betadine. The anterior lip of the cervix was grasped with a single tooth tenaculum. The uterus was sounded to 7 cm with a 4 mm Pipelle was used. Tissues samples were obtained and placed in formalin, in a patient labeled container and sent to the pathology department. At the end of the procedure, there was minimal bleeding noted The patient tolerated the procedure well and was discharged in good condition with the following instructions: Nothing in the vagina until the bleeding stops. No sex until the bleeding stops, to call if any of the following occurs: fever (>100.4), flu-like symptoms, abdominal pain, heavy bleeding, four smelling vaginal discharge. The patient was instructed to schedule a Follow up appointment in 2 weeks to discuss pathology results of the biopsy and treatment options. This note was generated with a voice recognition program. Some errors may have been overlooked during the review of this note. Sometimes these errors may affect the content or meaning of a given sentence. [id number] Biopsy Assessment & Plan Assessment & Plan (1) Abnormal uterine bleeding (AUB): Code(s): N93.9 - Abnormal uterine and vaginal bleeding, unspecified Category: Medical Plan: EMB done, see procedure note Orders: Orders AMB Endometrial Biopsy Today N93.9 - Abnormal uterine and vaginal bleeding, unspecified Coding Level of Care Code Procedure Only Diagnoses Abnormal uterine bleeding (AUB) N93.9 CPT Codes Endometrial Biopsy - CPT: 09354-[id number] Biopsy ([id number])
--- OUTSIDE RECORDS SUMMARY | 2024-06-25 15:33 | XMS_ITS | Clinical Summary ---
Author Organization [employer] Address [address] [place] [address] 7[address] [place] [address] Care Team Providers Care Rail Car Driver Name Role Phone Marian Crook MD Primary [...] PATCH WITHIN 12 HOURS OR DIRECTED BY MD. 30 patch 2 06/08/19 25 Active baclofen [...] I told her to reach out to assistant paralegal to help her write a letter so that housing give her some more time to get the letter from provider. She will res tart Effexor for anxiety and fu with me in 6m Encounters Date Type Department Care Team Description 06/24/2024 Orders Only [facility] [place] [address] Marian Crook MD Bilateral primary osteoarthritis of knee (Primary Dx) 06/23/2024 Patient Outreach [facility] [address] [place] [address] Marian Crook MD Pre-visit Planning (SDOH screening negative and tobacco screening negative) 06/18/2024 Orders Only GENERIC EXTERNAL DATA DEPARTMENT Provider, Generic External Data 06/17/2024 Refill [facility] [address] [place] [address] Marian Crook MD 06/05/2024 Refill [facility] [address] [place] [address]177 Marian Crook MD 06/05/2024 Refill [facility] [address] [place] [phone] Claritza Leonard DO 06/04/2024 Population Health Risk Score [facility] ([facility] Department [address] [phone] Provider, Population Health Generic 06/02/2024 Telephone [facility] [address] [place] [address] 14634 Marian Crook MD Med Refill 06/02/2024 Telephone [facility] [address] [place] [address] 60[address] Marian Crook MD Referral 06/02/2024 Refill [facility] [address] [place] [address] Marian Crook MD 05/28/2024 3:15 PM EST Office Visit [facility] [address] [place] [address] Tata Fink, JUAN Chronic pain of both knees (Primary Dx) 05/26/2024 Telephone [facility] [address] [place] [address], [place] [address] Marian Crook MD Nurse Triage 05/13/2024 Refill [facility] [address] [place] [address] Marian Crook MD Moderate persistent asthma without complication 05/07/2024 Refill [facility] [address] [place] [address] Marian Crook MD 05/05/2024 Orders Only GENERIC EXTERNAL DATA DEPARTMENT Provider, Generic External Data 04/29/2024 Orders Only [facility] [address] [place] [address] Claritza Leonard DO Bilateral renal cysts (Primary Dx); Uterine leiomyoma, unspecified location; Excessive bleeding in premenopausal period 04/29/2024 Telephone [facility] [address] [place] [address] Marian Crook MD Nurse Triage 04/27/2024 Orders Only GENERIC EXTERNAL DATA DEPARTMENT Provider, Generic External Data 04/26/2024 Orders Only GENERIC EXTERNAL DATA DEPARTMENT Provider, Generic External Data 04/26/2024 Telephone [facility] [address] [place] [address] Lina Yarbrough, MOIRA Results 04/23/2024 Telephone [facility] [address] [place] [address] Marian Crook MD Tianna recall 04/13/2024 Refill [facility] [address] [place] [address] Marian Crook MD 04/09/2024 Orders Only [facility] [address] [place] [address] Claritza Leonard DO Abnormal MRI, lumbar spine (Primary Dx) 03/30/[address] [place] [address] Marian Crook MD Results 03/30/2024 Telephone [facility] [address] [place] [address] Marian Crook MD Stable Imaging Letter 03/30/[address] [address] Marian Crook MD Call Back Requested 03/27/2024 Orders Only GENERIC EXTERNAL DATA DEPARTMENT Provider, Generic External Data from Last 3 Months Immunizations Name Administration [...] 11:45 AM EDT Office Visit [facility] [address] [place] [address] Marian Crook MD [address], [place] [phone] Health Maintenance Due Date Last Done Comments [...] 01/12/2024, 01/12/2024 Mammogram 12/04/2024 12/05/2023, 09/21, 09/29/2017 Alcohol/Substance Use Screening 01/11/2025 01/12/2024 Depression Screening 01/11/2025 01/12/2024, 01/12/20 24 Tobacco Screening 01/11/2025 01/12/2024 Zoster Vaccines (1 of 2) 2025 SDOH Screening 06/23/2025 06/23/2024 Colorectal Cancer Screening 02/01/2027 FIT DNA/Cologuard 02/01/2027 [...] Procedure Name Priority Date/Time Associated Diagnosis Comments HIGH SENSITIVITY TROPONIN I Routine 06/18/2024 11:08 AM EDT XR CHEST 1 VIEW Routine 06/18/2024 9:10 AM EDT US VENOUS DUPLEX LE LT Routine 9:09 AM EDT D DIMER HIGH SENSITIVITY Routine 025 8:29 AM EDT HIGH SENSITIVITY TROPONIN I Routine 06/18/2024 8:29 AM EDT MAGNESIUM Routine 06/18/2024 8:29 AM EDT COMPREHENSIVE METABOLIC PANEL Routine 06/18/2024 8:29 AM EDT PROTHROMBIN TIME-INR Routine 06/18/2024 8:29 AM EDT CBC WITH AUTO DIFFERENTIAL Routine 06/18/2024 8:29 AM EDT XR KNEE 4+ VIEWS LEFT Routine 05/31/2024 [...] Recently Relevant to Health Maintenance Results * High Sensitivity Troponin I (06/18/2024 11:08 AM EDT) Only the most recent of2 resultswithin the time period is included. TROPONIN I HIGH SENSITIVITY <2.7 <3.5 - 17.0 ng/L [facility] Comment:The Thomason high sens itivity Troponin-I results should beused in conjunction with other diagnostic information suchas ECG, clinical observations and information, and patientsymptoms to aid in the diagnosis of DE. 06/18/2024 11:0 8 AM EDT 06/18/2024 11:15 AM EDT us Generic External Data Provider LAB BLOOD ORDERAB LES Final Result [facility] [address] [place] [address] [phone] * XR Chest 1 View (06/18/2024 9:10 AM EDT) Anatomical Region Laterality Modality Chest Radiographic Irais ging 06/18/2024 9:10 AM EDT Narrative 06/18/2024 9:37 AM EDT ? [facility] ?[address] ?[place] [address] ?XRay Report ? Signed ? Patient: Corina Nielsen ?MR#: [id number] ?? [id number] ? : 1975 ?Acct:[id number] ? Age/Sex: 49 / F ?ADM Date: 06/18/24 ? Loc: HO.ED ? Attending Dr: ? Ordering Physician: Lisa Nguyen DO ?? Date of Service: 06/18/24 ?? Procedure(s): XR chest 1V ?? Accession Number(s): [id number] ? cc: Marian Crook MD; Lisa Nguyen DO ? EXAMINATION: ??XR CHEST 1 VIEW ? HISTORY: dyspnea ? COMPARISON: Comparison is made with the prior examination dated ?? 12/26/2017. ? FINDINGS: ??A single AP portable view of the chest performed at 9:25 AM ?? is submitted. The lungs are expanded and clear. ??There is no pleural ?? effusion, pneumothorax, or pulmonary vascular congestion. ??The heart is ?? normal in size. ??The bones are intact. There are surgical clips at the ?? junction. ? XR/XR chest 1V ?? IMPRESSION: ?? No acute cardiopulmonary abnormality. ? Electronically signed by: ??Dorian Graham MD ??06/18/2024 09:34 AM EDT ?? RP ? Dictated By: ?Dorian Graham MD ? Signed By: ?<Electronically signed by Dorian Graham MD in OV> ?06/18/24 0934 ? DD/ 0910 ? TD/TT: 06/18/24924 ? Fare Enforcement Officer: ? Procedure Note Donotuseinterpreter, Image - 06/18/[address] [address] XRay Report Signed Patient: Yarelis Nielsen#: [id number] : 1975Acct:[id number] Age/Sex: 49 / FADM Date: 06/18/24 Loc: .ED Attending Dr: Ordering Physician: Lisa Nguyen DO Date of Service: 06/18/24 Procedure(s): XR chest 1V Accession Number(s): [id number] cc: Marian Crook MD; Lisa Nguyen DO EXAMINATION: XR CHEST 1 VIEW HISTORY: dyspnea COMPARISON: Comparison is made with the prior examination dated 12/26/2017. FINDINGS: A single AP portable view of the chest performed at 9:25 AM is submitted. The lungs are expanded and clear. There is no pleural effusion, pneumothorax, or pulmonary vascular congestion. The heart is normal in size. The bones are intact. There are surgical clips at the junction. XR/XR chest 1V IMPRESSION: No acute cardiopulmonary abnormality. Electronically signed by: Dorian Graham MD 06/18/2024 09:34 AM EDT Dictated By: Dorian Graham MD Signed By: <Electronically signed by Dorian Graham MD in OV> 06/18/24933 DD/ 9 TD/TT: 06/18/24924 Fare Enforcement Officer: [facility] External Provider IMG XR PROCEDURES Final Result * US VENOUS DUPLEX LE LT (06/18/2024 9:09 AM EDT) Anatomical Region Laterality Modality Abdomen Ultrasound 06/18/2024 9:09 AM EDT Narrative 06/18/2024 9:20 AM EDT ? [facility] ?[address] ?[place] [address] ? Ultrasound Report ? Signed ? Patient: Abrams James,Corina ?MR#: [id number] ?? [id number] ? : 1975 ?Acct:[id number] ? Age/Sex: 49 / F ?ADM Date: 06/18/24 ? Loc: HO.ED ? Attending Dr: ? Ordering Physician: Lisa Nguyen DO ?? Date of Service: 06/18/24 ?? Procedure(s): US venous duplex LE LT ?? Accession Number(s): [id number] ? cc: Marian Crook MD; Lisa Nguyen DO ? EXAMINATION: ?? US TRIPLEX LOWER EXTREMITY, LEFT ? CLINICAL INFORMATION: ?? Edema, left lower extremity. ? COMPARISON: ?? May 15, 2018. ? TECHNIQUE: ?? Color-flow triplex imaging with spectral analysis and compression ?? Doppler were performed on the left lower extremity. ? FINDINGS: ?? Respiratory variation, normal compression and augmented flow are noted ?? throughout the interrogated common femoral vein, superficial femoral ?? vein, profunda femoral vein, popliteal vein and midcalf peroneal and ?? posterior tibial venous segments. ? There is no Arteaga's cyst. ? US/US venous duplex LE LT ?? IMPRESSION: ?? No acute deep venous thrombosis involving the left lower extremity. ?? Negative for DVT. ? Electronically signed by: ??Valentino Guerra MD ??06/18/2024 09:18 AM ?? EDT ? Dictated By: ?Valentino Cotter MD ? Signed By: ?<Electronically signed by Valentino Jones MD in OV> ? 06/18/24 0918 ? DD/ 0909 ? TD/TT: 06/18/24 0914 ? Fare Enforcement Officer: ? Procedure Note Carli Mesa - 06/18/[address] [address] Ultrasound Report Signed Patient: Nika NielsenMagdiel#: [id number] : 1975Acct:[id number] Age/Sex: 49 / FADM Date: 06/18/24 Loc: HO.ED Attending Dr: Ordering Physician: Lisa Nguyen DO Date of Service: 06/18/24 Procedure(s): US venous duplex LE LT Accession Number(s): [id number] cc: Marian Crook MD; Lisa Nguyen DO EXAMINATION: US TRIPLEX LOWER EXTREMITY, LEFT CLINICAL INFORMATION: Edema, left lower extremity. COMPARISON: May 15, 2018. TECHNIQUE: Color-flow triplex imaging with spectral analysis and compression Doppler were performed on the left lower extremity. FINDINGS: Respiratory variation, normal compression and augmented flow are noted throughout the interrogated common femoral vein, superficial femoral vein, profunda femoral vein, popliteal vein and midcalf peroneal and posterior tibial venous segments. There is no Arteaga's cyst. US/US venous duplex LE LT IMPRESSION: No acute deep venous thrombosis involving the left lower extremity. Negative for DVT. Electronically signed by: Valentino Guerra MD 06/18/2024 09:18 AM EDT Dictated By: Valentino Cotter MD Signed By: <Electronically signed by Valentino Jones MDin OV> 06/18/24917 DD/ 8 TD/TT: 06/18/24 0914 Fare Enforcement Officer: [facility] External Provider IMG US PROCEDURES Final Result * D Dimer High Sensitivity (06/18/2024 8:29 AM EDT) Pathologist [facility] D Dimer High Sensitivity <150 NG/ML [facility] Comment:D-DIMER HS REFERENCE RANGENote: Our assay reports D-Dimer Units (D- DU).The cut-off value for venous thromboembolic (VTE) disease is230 ng/mL. This value has a very high negative predictivevalue when the patient has a low to moderate clinicalprobability of VTE.The upper limit of normal is 243 ng/mL. 06/18/2024 8:29 AM EDT 06/18/2024 8:32 AM EDT us Generic External Data Provider LAB BLOOD ORDERAB LES Final Result [facility] [address] [place] [address] [phone] * (ABNORMAL) CBC auto differential (06/18/2024 8:29 AM EDT) Only the most recent of2 resultswithin the time period is included. White Blood Count 6.1 4.8 - 10.8 X10*3/uL [facility] Red Blood Count 4.36 4.20 - 5.50 X10*6/uL [facility] Hemoglobin 13.5 12.0 - 16.0 g/dl [facility] Hematocrit 40.2 37.0 - 47.0 % [facility] Mean Corpuscular Volume 92.2 80.0 - 98.0 fL [facility] Mean Corpuscular Hemoglobin 31.0 27.0 - 33.0 pg [facility] Mean Corpuscular HGB Conc 33.6 31.0 - 35.0 g/dl [facility] Red Cell Distribution Width 13.5 11.0 - 16.0 % [facility] Platelet Count 192 160 - 400 X10*3/uL [facility] Mean Platelet Volume 10.5 9.4 - 12.3 fL [facility] Neutrophils Percent Auto 76.0(H) 45 - 73 % [facility] Imm Gran Pct Auto 0.3 0.0 - 0.4 % [facility] Lymphocytes Percent Auto 16.3(L) 20 - 40 % [facility] Monocytes Percent Auto 6.2 2 - 11 % [facility] Eosinophils Percent Auto 0.7 0 - 4 % [facility] Basophils Percent Auto 0.5 0 - 2 % [facility] NRBC Pct Auto 0.0 0.0 - 0.2 /100WBC [facility] Neutrophils Absolute Auto 4.7 2.0 - 8.3 x10*3/uL [facility] Imm Gran Abs Auto 0.02 0.00 - 0.03 X10*3/uL [facility] Lymphocytes Absolute Auto 1.0(L) 1.2 - 4.9 X10*3/uL [facility] Monocytes Absolute Auto 0.4 0.1 - 1.2 X10*3/uL [facility] Eosinophils Absolute Auto 0.0 0.0 - 0.4 X10*3/uL [facility] Basophils Absolute Auto 0.0 0.0 - 0.2 X10*3/uL [facility] NRBC Abs Auto 0.000 0.0 - 0.012 X10*3/uL [facility] 06/18/2024 8:29 AM EDT 06/18/2024 8:32 AM EDT us Generic External Data Provider LAB BLOOD ORDERAB LES Final Result Performing Organization Address [facility] Co de Phone Number [facility] [address] [place] [phone] * Prothrombin Time-INR (06/18/2024 8:29 AM EDT) Only the most recent of2 resultswithin the time period is included. Prothrombin Time 12.3 10.9 - 12.4 SEC [facility] INTERNATIONAL NORM RATIO 1.1 0.9 - 1.1 [facility] Comment:INTERNATIONAL NORMAL IZED RATIO (INR) REFERENCE RANGES Reference RangeFor patients not on anticoagulant therapy: 0.9 - 1.1INR ranges for oral anticoagulanttherapy:For prevention and treatment of venous thrombosis and pulmonary embolism: 2.0 - 3.0For acute myocardial infarction with aspirin therapy: 2.0 - 3.0For acute myocardial infarction without aspirin therapy: 3.0 - 4.0For patients with mechanical prosthetic heart valves: 2.5 - 3.5 06/18/2024 8:29 AM EDT 06/18/2024 8:32 AM EDT us Generic External Data Provider LAB BLOOD ORDERAB LES Final Result Performing Organization Address City/[facility]/ZIP Co de Phone Number [facility] [address] [place] [address] [phone] * Magnesium (06/18/2024 8:29 AM EDT) Only the most recent of2 resultswithin the time period is included. Magnesium 1.9 1.6 - 2.6 mg/dL [facility] 06/18/2024 8:29 AM EDT 06/18/2024 8:32 AM EDT us Generic External Data Provider LAB BLOOD ORDERAB LES Final Result [facility] [address] [place] [address] [phone] * (ABNORMAL) Comprehensive Metabolic Panel (06/18/2024 8:29 AM EDT) Only the most recent of2 resultswithin the time period is included. Sodium 138 135 - 145 mmol/L [facility] Potassium 3.9 3.3 - 5.1 mmol/L [facility] Chloride 112(H) 96 - 108 mmol/L [facility] Carbon Dioxide 21(L) 22 - 29 mmol/L [facility] Anion Gap 9(L) 12 - 20 [facility] Urea Nitrogen (BUN) 15 9 - 16 mg/dL [facility] Creatinine, Serum 0.70 0.5 - 1.4 mg/dL [facility] Creatinine Clr Calc Pharmacy 95.9 [facility] Comment:Provided height and weight: 160.02 cm,77.7 kg.eGFR (calculated from the MDRD study equation) and eCrCl(calculated from the Cockcroft-Gault equation) are based ondifferent parameters and may not yield comparable results.If eCrCl result is absurd, please check patient'sheight/weight. Estimated Glomerular Filt Rate >60 [facility] Comment:Chronic Kidney Disea se: Estimated GFR < 60 mL/min/1.51c3Ahoctp Kidney Disease: Estimated GFR < 15 mL/min/1.73m2 Glucose 93 60 - 115 mg/dL [facility] Calcium 8.9 8.4 - 10.2 mg/dL [facility] Bilirubin, Total 0.5 0.0 - 1.0 mg/dL [facility] Aspartate Amino Transferase 21 5 - 31 U/L [facility] Alanine Aminotransferase 16 0 - 31 U/L [facility] Total Protein 7.0 6.5 - 8.0 g/dL [facility] Albumin Level 4.1 3.5 - 5.0 g/dL [facility] Alkaline Phosphatase 64 39 - 117 U/L [facility] 06/18/2024 8:29 AM EDT 06/18/2024 8:32 AM EDT us Generic External Data Provider LAB BLOOD ORDERAB LES Final Result Performing Organization Address City/State/[facility] Co de Phone Number [facility] [address] [place] [address] [phone] * XR Knee 4+ Views Right (05/31/2024 2:29 PM EDT) Anatomical Region Laterality Modality Lower Extremities, Knee Right Radiogra phic Imaging 05/31/2024 2:29 PM EDT Narrative 05/31/2024 3:04 PM EDT ?[facility] ?[address] ?[place] [address] ?XRay Report ? Signed ? Patient: Jose Alberto James,Corina ?MR#: [id number] ?? [id number] ? : 1975 ?Acct:[id number] ? Age/Sex: 49 / F ?ADM Date: 03/10/25 ? Loc: HO.HHCX ? Attending Jacqueline Payton Appram ? Ordering Physician: Appram,Tata ?? Date of Service: 05/31/24 ?? Procedure(s): XR knee RT 4V ?? Accession Number(s): [id number] ? cc: Tata Fink ? EXAMINATION: ?? [...] DD/ 1429 ? TD/TT: 05/31/24 1455 ? Fare Enforcement Officer: ? Procedure Note Carli Mesa - 05/31/[address] [address] XRay Report Signed Patient: Yarelis Nielsen#: [id number] : 1975Acct:[id number] Age/Sex: 49 / FADM Date: 05/31/24 Loc: HO.HHCX Attending Dr: Tata Fink Ordering Physician: Tata Fink Date of Service: 05/31/24 Procedure(s): XR knee RT 4V Accession Number(s): [id number] cc: Tata Fink EXAMINATION: XR KNEE, RIGHT [...] Valentino Guerra MD 05/31/2024 03:01 PM EDT Dictated By: Valentino Ctoter MD Signed By: <Electronically signed by Valentino Jones MDin OV> 05/31/24 1501 DD/ 1429 TD/TT: 05/31/24 1455 Fare Enforcement Officer: us Tata Phillipsm PHLEBOTOMY INSTRUCTOR IMG XR PROCEDURES Final Result * XR Knee 4+ Views Left (05/31/2024 2:29 PM EDT) Anatomical Region Laterality Modality Lower Extremities, Knee Left Radiogra phic Imaging 05/31/2024 2:29 PM EDT Narrative 05/31/2024 3:05 PM EDT ?[facility] ?[address] ?[place] [address] ?XRay Report ? Signed ? Patient: Jose Alberto James,Corina ?MR#: [id number] ?? [id number] ? : 1975 ?Acct:[id number] ? Age/Sex: 49 / F ?ADM Date: 05/31/24 ? Loc: HO.HHCX ? Attending Dr: Tata Fink ? Ordering Physician: Tata Fink ?? Date of Service: 05/31/24 ?? Procedure(s): XR knee LT 4V ?? Accession Number(s): [id number] ? cc: Tata Fink ? EXAMINATION: ?? [...] DD/ 1429 ? TD/TT: 05/31/24 1455 ? Fare Enforcement Officer: ? Procedure Note Bonita, Image - 05/31/2024 [facility] [address] [place] [address] XRay Report Signed Patient: Yarelis Nielsen#: [id number] : 1975Acct:[id number] Age/Sex: 49 / FADM Date: 05/31/24 Loc: .HHX Attending Dr: Tata Fink Ordering Physician: Tata Fink Date of Service: 05/31/24 Procedure(s): XR knee LT 4V Accession Number(s): [id number] cc: Tata Fink EXAMINATION: XR KNEE, LEFT [...] 05/31/24 1502 DD/ 1429 TD/TT: 05/31/24 1455 Fare Enforcement Officer: Tata Fink PHLEBOTOMY INSTRUCTOR IMG XR PROCEDURES Final Result * TSH with Reflex to Free T4 (05/05/2024 11:23 AM EST) Only the most recent of2 resultswithin the time period is included. TSH reflex Free T4 0.78 0.32 - 4.0 uIU/mL [facility] 05/05/2024 11:2 3 AM EST 05/05/2024 11:23 AM EST us Generic External Data Provider LAB BLOOD ORDERAB LES Final Result Performing Organization Address City/[facility]/ZIP Co de Phone Number [facility] [address] [place] [phone] * (ABNORMAL) CBC (05/05/2024 11:23 AM EST) Pathologist [facility] White Blood Count 5.5 4.8 - 10.8 X10*3/uL [facility] Red Blood Count 3.92(L) 4.20 - 5.50 X10*6/uL [facility] Hemoglobin 12.0 12.0 - 16.0 g/dl [facility] Hematocrit 36.3(L) 37.0 - 47.0 % [facility] Mean Corpuscular Volume 92.6 80.0 - 98.0 fL [facility] Mean Corpuscular Hemoglobin 30.6 27.0 - 33.0 pg [facility] Mean Corpuscular HGB Conc 33.1 31.0 - 35.0 g/dl [facility] Red Cell Distribution Width 12.3 11.0 - 16.0 % [facility] Platelet Count 264 160 - 400 X10*3/uL [facility] Mean Platelet Volume 11.1 9.4 - 12.3 [facility] NRBC Pct Auto 0.0 0.0 - 0.2 /100WBC [facility] NRBC Abs Auto 0.000 0.0 - 0.012 X10*3/uL [facility] 05/05/2024 11:2 3 AM EST 05/05/2024 11:23 AM EST us Generic External Data Provider LAB BLOOD ORDERAB LES Final Result [facility] [address] [place] [phone] [phone] * hCG, Total, Quantitative (05/05/2024 11:23 AM EST) HCG Quantitative <2 mIU/mL [facility] Comment:Weeks post LMP Appr oximate hCG(Last Menstrual Period) Range (mIU/ml)3 - 4 weeks 9 - 1304 - 5 weeks 75 - 2,6005 - 6 weeks 850 - 20,8006 - 7 weeks 4000 - 100,2007 - 12 weeks 11,500 - 289,29152 - 16 weeks 18,300 - 137,49647 - 29 weeks (2nd trimester) 1,400 - 53,12898 - 41 weeks (3rd trimester) 940 - [...] Provider LAB BLOOD ORDERAB LES Final Result [facility] [address] [place] [phone] * LH (05/05/2024 11:23 AM EST) Lutenizing Hormone 7.8 mIU/mL [facility] Comment:Reference Range Foll icular Phase 1.9-12.5 Mid-Cycle Peak 8.7-76.3 Luteal Phase 0.5-16.9 Postmenopausal 10.0-54.7THIS TEST WAS PERFORMED AT:[facility] [place] [id number] OLIVAS MD 05/05/2024 11:2 3 AM EST 05/05/2024 11:23 AM EST us Generic External Data Provider LAB BLOOD ORDERAB LES Final Result Performing Organization Address [facility] Co de Phone Number [facility] [address] [place] [phone] * FSH (05/05/2024 11:23 AM EST) Pathologist [facility] Follicle Stimulating Hormone 14.4 mIU/mL [facility] Comment:Reference Range Foll icular Phase 2.5-10.2 Mid-cycle Peak 3.1-17.7 Luteal Phase 1.5- 9.1 Postmenopausal 23.0-116.3THIS TEST WAS PERFORMED AT:[facility] [place] [id number] OLIVAS MD 05/05/2024 11:2 3 AM EST 05/05/2024 11:23 AM EST Generic External Data Provider LAB BLOOD ORDERAB LES Final Result Performing Organization Address [facility] de Phone Number [facility] [address] [place] [phone] * Chlamydia/N. Gonorrhoeae RNA, TMA, Urogenitial (05/05/2024 11:19 AM EST) [facility] CT PCR NOT DETECTED Not Detect. [facility] Comment:A not detected test result does [...] psychologicalconsequences. NG PCR NOT DETECTED Not Detect. [facility] Comment:A not detected test result does [...] AM EST 05/05/2024 11:56 AM EST Narrative [facility] - 05/06/2024 7:21 AM EST Vaginal Generic External Data Provider LAB MICROBIOLOGY - GENERAL ORDERABLES Final Result [facility] [address] [place] [phone] * HPV DNA, Low/High Risk (05/05/2024 10:22 AM EST) HPV High Risk Negative Negative [facility] HPV Genotype 16 Negative Negative [facility] HPV Genotype 18 Negative Negative [facility] Comment:HPV testing performe d at [facility] (CLIA#[id number]), [address] [place] [address].Testing for HPV was performed using the Jon [...] Provider LAB BLOOD ORDERAB LES Final Result [facility] [address] [place] [phone] * Pap Smear (05/05/2024 10:22 AM EST) 05/05/2024 10:2 2 AM EST 05/06/2024 6:10 AM EST Narrative [facility] - 05/11/2024 9:16 AM EST ----- ------- Name: Corina Nielsen ?Age/Sex: 49/F ? : 1975 Unit#: [id number] ?? Attend Dr: Pj Posadas MD ?Re05/05/24 ?Status: DEP REF ? Location: HO.LNP ?Disch: ? ----- ------- SPEC : [id number] ? RECD: 05/06/24 ? STATUS: ??SOUT ? REQ NUM: [id number] ? LAURA: 05/05/242 ? SUBM DR: Pj Posadas MD ? [...] Copies To: ?? Marian Crook MD ?? [facility] ?? [address] [facility] ?? [place] [address] ?? [phone] ?? Pj Posadas MD ?? [facility] Women's Services ?? [address] [facility] [address] ?? [place] [address] ?? [phone] ----- ------- Signed (signature on file) SCARLET Hernandez (ASCP) 05/11/24 0916 ? ----- ------- ? END OF REPORT ? us Generic External Data Provider LAB CYTOLOGY SHONA VIRAMONTES Final Result [facility] [address] [place] [address] [phone] * (ABNORMAL) Urinalysis, Complete, with Reflex to Culture (04/27/2024 12:31 AM EST) Color Urine Yellow [facility] Appearance Urine Clear [facility] PH 5.5 5.0 - 9.0 [facility] Glucose Urine UA Negative Negative mg/dL [facility] Urine Blood Moderate (2+)(A) Negative [facility] Specific Elizabeth - Urine 1.020 1.005 - 1.025 [facility] Urine Protein Negative Neg-Trace mg/dL [facility] Urine Ketones Negative Negative mg/dL [facility] Nitrite Urine Negative Negative [facility] Leukocyte Esterase Urine Negative Negative [facility] RBC Urine >20(A) 0 - 2 /HPF [facility] Urine WBC 0-5 0 - 5 /HPF [facility] Urine Squamous Epithelial Cell 0-2 0 - 2 /HPF [facility] Urine Bacteria None Seen None Seen [facility] Hyaline Casts, Urine 0-2 0 - 2 /LPF [facility] 04/27/2024 12:3 1 AM EST 04/27/2024 12:34 AM EST Narrative [facility] - 04/27/2024 12:42 AM EST Urine, Clean Catch us Generic External Data Provider LAB URINE ORDERAB LES Final Result Performing Organization Address [facility] de Phone Number [facility] [address] [place] [address] [phone] * Partial Thromboplastin Time, Activated (APTT) (04/26/2024 4:47 PM EST) Partial Thromboplastin Time 31.7 26.0 - 36.8 SEC [facility] Comment:For information rega rding the monitoring of direct thrombininhibitors, please refer to Pharmacy. 04/26/2024 4:47 PM EST 04/26/2024 4:50 PM EST us Generic External Data Provider LAB BLOOD ORDERAB LES Final Result Performing Organization Address [facility] de Phone Number [facility] [address] [place] [address] [phone] * US RENAL BI (04/21/2024 12:04 PM EST) Anatomical Region Laterality Modality Abdomen Ultrasound 04/21/2024 12:0 4 PM EST Narrative 04/21/2024 12:05 PM EST ? [facility] ?[address] ?[place] [address] ? Ultrasound Report ? Signed ? Patient: Abrams James,Corina ?MR#: [id number] ?? [id number] ? : 1975 ?Acct:[id number] ? Age/Sex: 49 / F ?ADM Date: 01/28/25 ? Loc: HO.US ? Attending Dr: Claritza Leonard DO ? Ordering Physician: Claritza Leonard DO ?? Date of Service: 04/20/24 ?? Procedure(s): US renal BI ?? Accession Number(s): [id number] ? cc: Claritza Leonard DO ? CLINICAL [...] DD/ 1204 ? TD/TT: 04/21/24 1204 ? Fare Enforcement Officer: ? Procedure Note Carli Mesa - 04/21/2024 [place] [address] Ultrasound Report Signed Patient: Yarelis Nielsen#: [id number] : 1975Acct:[id number] Age/Sex: 49 / FADM Date: 04/20/24 Loc: HO.US Attending Dr: Claritza Leonard DO Ordering Physician: Claritza Leonard DO Date of Service: 04/20/24 Procedure(s): US renal BI Accession Number(s): [id number] cc: Claritza Leonard DO CLINICAL HISTORY: probable [...] 04/21/24 1204 DD/ 1204 TD/TT: 04/21/24 1204 Fare Enforcement Officer: us Claritza Leonard DO IMG US PROCEDURES Edited Res ult - Final * US Pelvis Transvaginal (04/20/2024 3:25 PM EST) Anatomical Region Laterality Modality Pelvis Ultrasound 04/20/2024 3:25 PM EST Narrative 04/21/2024 9:28 AM EST ? [facility] ?[address] ?[place] [address] ? Ultrasound Report ? Signed ? Patient: Corina Nielsen ?MR#: [id number] ?? [id number] ? : 1975 ?Acct:[id number] ? Age/Sex: 49 / F ?ADM Date: 04/20/24 ? Loc: HO.US ? Attending Dr: Claritza Leonard DO ? Ordering Physician: Claritza Leonard DO ?? Date of Service: 04/20/24 ?? Procedure(s): US pelvic and transvaginal ?? Accession Number(s): [id number] ? cc: Claritza Leonard DO ? EXAMINATION: [...] DD/ 1525 ? TD/TT: 04/20/24 1555 ? Fare Enforcement Officer: ? Procedure Note Bonita, Carli - 04/21/[address] [address] Ultrasound Report Signed Patient: Yarelis Nielsen#: [id number] : 1975Acct:[id number] Age/Sex: 49 / FADM Date: 04/20/24 Loc: HO.US Attending Dr: Claritza Leonard DO Ordering Physician: Claritza Leonard DO Date of Service: 04/20/24 Procedure(s): US pelvic and transvaginal Accession Number(s): [id number] cc: Claritza Leonard DO EXAMINATION: US PELVIS [...] 04/21/24 0926 DD/ 1525 TD/TT: 04/20/24 1555 Fare Enforcement Officer: us Claritza Leonard DO IMG US PROCEDURES Edited Res ult - Final * XR Hip 2 or 3 Views Left (03/29/2024 1:06 PM EST) Anatomical Region Laterality Modality Lower Extremities, Hip Left Radiograp hic Imaging 03/29/2024 1:06 PM EST Narrative 03/29/2024 1:08 PM EST ? [place] [facility] ?[address] ?[place] [address] ?XRay Report ? Signed ? Patient: Abrams James,Corina ?MR#: [id number] ?? [id number] ? : 1975 ?Acct:[id number] ? Age/Sex: 49 / F ?ADM Date: 03/26/24 ? Loc: HO.XRAY ? Attending Dr: Jada CELMENT ? Ordering Physician: Jada Cervantes ?? Date of Service: 03/26/24 ?? Procedure(s): XR hip LT min 2V w/wo pel ?? Accession Number(s): [id number] ? cc: Jada Cervantes; Marian Crook MD [...] DD/ 1306 ? TD/TT: 03/29/24 1306 ? Fare Enforcement Officer: ? Procedure Note Carli Mesa - 03/29/[address] [address] XRay Report Signed Patient: Yarelis Nielsen#: [id number] : 1975Acct:[id number] Age/Sex: 49 / FADM Date: 03/26/24 Loc: HO.EZEQUIELAY Attending Dr: Jada CLEMENT Ordering Physician: Jada Cervantes Date of Service: 03/26/24 Procedure(s): XR hip LT min 2V w/wo pel Accession Number(s): [id number] cc: Jada Cervantes; Marian Crook MD CLINICAL [...] 03/29/24 1307 DD/ 1306 TD/TT: 03/29/24 1306 Fare Enforcement Officer: [facility] External Provider IMG XR PROCEDURES Edited Result - Final * Hepatitis C Ab (03/27/2024 10:19 AM EST) Hepatitis C Antibody Nonreactive Nonreactive [facility] Comment:Antibodies to HCV no t detected; does not exclude early acuteHCV infection. 03/27/2024 10:1 9 AM EST 03/27/2024 10:19 AM EST Generic External Data Provider LAB BLOOD ORDERAB LES Final Result Performing Organization Address [facility] Co de Phone Number [facility] [address] [place] [phone] * (ABNORMAL) Iron And Total Iron Binding Capacity (03/27/2024 10:19 AM EST) Iron 298(H) 30 - 160 mcg/dL [facility] Total Iron Binding Capacity 323 228 - 428 mcg/dL [facility] Percent Iron Saturation 92(H) 15 - 50 % [facility] Unsaturated Iron Binding <25 ug/dL [facility] 03/27/2024 10:1 9 AM EST 03/27/2024 10:19 AM EST Generic External Data Provider LAB BLOOD ORDERAB LES Final Result Performing Organization Address [facility] Co de Phone Number [facility] [address] [place] [phone] * Hepatitis A Antibody, Total (03/27/2024 10:19 AM EST) Hepatitis A Antibody IgG Nonreactive Nonreactive [facility] 03/27/2024 10:1 9 AM EST 03/27/2024 10:19 AM EST Generic External Data Provider LAB BLOOD ORDERAB LES Final Result Performing Organization Address [facility] Co de Phone Number [facility] [address] [place] [phone] * Tissue Transglutaminase Antibody, IgA (03/27/2024 10:19 AM EST) Pathologist [facility] Transglutaminase IgA <1.0 U/mL [facility] Comment:Value Interpretation ----- <15.0 Antibody not detected> or = 15.0 Antibody detectedTHIS TEST WAS PERFORMED AT:[facility] [place] [phone] OLIVAS MD 03/27/2024 10:1 9 AM EST 03/27/2024 10:19 AM EST Generic External Data Provider LAB BLOOD ORDERAB LES Final Result Performing Organization Address [facility] Phone Number [facility] [address] [place] [phone] * Hepatitis B surface antigen, EIA (03/27/2024 10:19 AM EST) Hepatitis B Surface Ag Negative Negative [facility] 03/27/2024 10:1 9 AM EST 03/27/2024 10:19 AM EST Generic External Data Provider LAB BLOOD ORDERAB LES Final Result Performing Organization Address [facility] Co de Phone Number [facility] [address] [place] [phone] * Hepatitis B Core Antibody, Total (03/27/2024 10:19 AM EST) Pathologist [facility] Hepatitis B Core Antibody Nonreactive Nonreactive [facility] 03/27/2024 10:1 9 AM EST 03/27/2024 10:19 AM EST us Generic External Data Provider LAB BLOOD ORDERAB LES Final Result [facility] [address] [place] [phone] * HIV-1/2 Antigen and Antibodies, Fourth Generation, with Reflexes (03/27/2024 10:19 AM EST) [facility] HIV AB/AG Nonreactive Nonreactive [facility] Comment:HIV-1 p24 Ag and/or HIV-1/HIV-2 Ab not detected.A test result that is nonreactive does not exclude thepossibility of exposure to or infection with HIV-1 and/orHIV-2. Nonreactive results in this assay for individualswith prior exposure to HIV-1 and/or HIV-2 may be due toantigen and antibody levels that are below the limit ofdetection of this assay.The [employer] HIV Ag/Ab Combo assay result andsupplemental assay results should be interpreted inconjunction with the patient's clinical presentation,history and other laboratory results. If the results areinconsistent with clinical evidence, additional testing issuggested to confirm the result. 03/27/2024 10:1 9 AM EST 03/27/2024 10:19 AM EST us Generic External Data Provider LAB BLOOD ORDERAB LES Final Result [facility] [address] [place] [address] [phone] * Hepatitis B Surface Antibody, Qualitative (03/27/2024 10:19 AM EST) Pathologist [facility] ~Hepatitis B Surface Antibody REACTIVE Nonreactive [facility] Comment:REACTIVE: > 11.99 mI U/mL 03/27/2024 10:1 9 AM EST 03/27/2024 10:19 AM EST us Generic External Data Provider LAB BLOOD ORDERAB LES Final Result Performing Organization Address [facility] Phone Number [facility] [address] [place] [phone] * C-reactive Protein (03/27/2024 10:19 AM EST) C Reactive Protein <0.04 < or = 0.50 mg/dL [facility] 03/27/2024 10:1 9 AM EST 03/27/2024 10:19 AM EST Generic External Data Provider LAB BLOOD ORDERAB LES Final Result Performing Organization Address [facility] Phone Number [facility] [address] [place] [phone] * Immunoglobulin A (03/27/2024 10:19 AM EST) Immunoglobulin A 269 47 - 310 mg/dL [facility] Comment:THIS TEST WAS PERFOR MED AT:[facility] [address] [phone] OLIVAS MD 03/27/2024 10:1 9 AM EST 03/27/2024 10:19 AM EST Generic External Data Provider LAB BLOOD ORDERAB LES Final Result Performing Organization Address [facility] de Phone Number [facility] [address] [place] [phone] * Ferritin (03/27/2024 10:19 AM EST) Ferritin 12 10 - 250 ng/mL [facility] 03/27/2024 10:1 9 AM EST 03/27/2024 10:19 AM EST us Generic External Data Provider LAB BLOOD ORDERAB LES Final Result [facility] [address] [place] [phone] * Cologuard?? colon cancer screening (02/02/2024 9:15 AM EST) Cologuard Result Negative Negative 02/08/20 2:05 AM EST [facility] (CLIA #:[id number]) Comment: NEGATIVE TEST RESULT. A negative Cologuard [...] screened with both Cologuard and colonoscopy. (Isadora Warren. et al, N Engl J Med 2014;370(14):1286- 1297) The normal value (reference range) for this assay is negative. COLOGUARD RE-SCREENING RECOMMENDATION: Periodic colorectal cancer screening is an important part of preventive healthcare for asymptomatic individuals at average risk for colorectal cancer. ??Following a negative Cologuard result, the [place] [employer] Society and U.S. Multi-Society Task Force screening guidelines recommend a Cologuard re-screening interval of 3 years. References: [place] [employer] Guideline for Colorectal Cancer Screening: https://www.cancer.org/cancer/tmaba-hbqyxt-affnil/akarefpti-yultawqap-phqoguc/ac s-rec ommendations.html.; Hector ABERNATHY, Julio Cesar PEÑA, Janet TroncosoK, Colorectal Cancer Screening: Recommendations for Physicians and Patients from the U.S. Multi-Society Task Force on Colorectal Cancer Screening , Am J Gastroenterology 2017; 112:5120-9153. TEST DESCRIPTION: Composite algorithmic analysis of stool [...] Gonzalez et al, N Engl J Med 2014;370(14):2993-7909.) Cologuard may produce a false negative or false positive result (no colorectal cancer or precancerous polyp present at colonoscopy follow up). A negative Cologuard test result does not guarantee the absence of CRC or advanced adenoma (pre-cancer). The current Cologuard screening interval is every 3 years. ([place] [employer] Society and U.S. Multi-Society Task Force). Cologuard performance data in a 10,000 patient pivotal study using colonoscopy as the reference method can be accessed at the following location: www.OBOOK/results. Additional description of the Cologuard test process, warnings and precautions can be found at www.ShowEvidencerd.com. Stool specimen (specimen) Rectal contents / Unknown 02/02/2024 9:15 AM EST 02/03/2024 10:52 AM EST us Marian Crook MD LAB MOLECULAR DIAGNOSTIC S ORDERABLES Final Result [facility] (CLIA #:[id number]) [address] [place] [address], * BI Mammogram Screening Tomosynthesis Bilateral (12/05/2023 3:30 PM EDT) Anatomical Region Laterality Modality Breast Bilateral Mammography 12/05/2023 3:30 PM EDT Narrative 12/19/2023 8:58 AM EDT ? [facility] ? [address] ?[place] [address] ? Mammography Report ? Signed ? Patient: Corina Nielsen ?MR#: [id number] ?? [id number] ? : 1975 ?Acct:[id number] ? Age/Sex: 48 / F ?ADM Date: 12/05/23 ? Loc: HO.MAMMO ? Attending Dr: Marian Crook MD ? Ordering Physician: Marian Crook MD ?Results: 1Ne ?? gative ? Date of Service: 12/05/23 ?Follow Up: 1 Year From Orig ?? inal Mammogram ? Procedure(s): MM tomosynthesis screening BI ?? Accession Number(s): [id number] ? cc: Marian Crook MD ? EXAMINATION: [...] DD/ 1530 ? TD/TT: 12/05/23 1540 ? Fare Enforcement Officer: ? Procedure Note Carli Mesa - 12/19/2023 [facility] [address] [place] [address] Mammography Report Signed Patient: Yarelis Nielsen#: [id number] : 1975Acct:[id number] Age/Sex: 48 / FADM Date: 12/05/23 Loc: HO.MAMMO Attending Dr: Marian Crook MD Ordering Physician: Marian Crook MDResults: 1Ne gative Date of Service: 12/05/23Follow Up: 1 Year From Orig inal Mammogram Procedure(s): MM tomosynthesis screening BI Accession Number(s): [id number] cc: Marian Crook MD EXAMINATION: MM SCREENING [...] 12/19/23 0855 DD/ 1530 TD/TT: 12/05/23 1540 Fare Enforcement Officer: Marian Crook MD IMG BI PROCEDURES Final Result from Last 3 Months or Most Recently Relevant to Health Maintenance Insurance [employer] [facility] Care Teams Rail Car Driver Relationship Specialty Start Date End Date Marian Crook MD [address] [place] [phone] PCP - General Internal Medicine 09/12/23
--- OUTSIDE RECORDS SUMMARY | 2024-06-25 15:33 | XMS_ITS | Encounter Summary ---
Author Organization [employer] Address [address] [facility] 7t [place] [address] Care Team Providers Care Gauge Maker Apprentice Name Role Phone Marian Crook MD Primary Care Provider + Reason for Visit * Reason Onset Date Comments Med Refill 06/02/2024 Encounter Details Date Type Department Care Team ([facility] st Contact Info) Description 06/02/2024 Telephone [facility] MEDICINE [address] [place] [address] Marian Crook MD [address] [place] [address] Med Refill Social History Tobacco Use Types [...] Description 07/02/2024 11:45 AM EDT Office Visit [facility] MEDICINE [address] [place] [address] Marian Crook MD [address] [place], [place] [phone] documented as of this encounter Visit Diagnoses Diagnosis Moderate persistent asthma without complication documented in this encounter Additional Health Concerns Assessment Noted Time PHQ-9 Depression Total Score: 22 024 2:02 PM EDT documented as of this encounter Care Teams Gauge Maker Apprentice Relationship Specialty Start Date End Date Marian Crook MD [address] [place] [phone] PCP - General Internal Medicine 09/12/23 documented as of this encounter
--- OUTSIDE RECORDS SUMMARY | 2024-06-25 15:33 | XMS_ITS | Encounter Summary ---
Author Organization [employer] Address [address] [facility] [address]t [place] [address] Care Team Providers Care Outsole Rounder Name Role Phone Marian Crook MD Primary Care Provider + Reason for Visit * Reason Onset Date Comments Referral 06/02/2024 Encounter Details Date Type Department Care Team ([facility] st Contact Info) Description 06/02/2024 Telephone [facility] MEDICINE [address] [place], [place] [phone] Marian Crook MD [address] [place] [address] Referral Social History Tobacco Use Types Packs/Day [...] encounter Miscellaneous Notes * Telephone Encounter - Marian Crook MD - 06/24/2024 11:36 AM EDT I just sent the referral. * Telephone Encounter - Paulino Arizmendi - 06/24/2024 9:42 AM EDT Tc from pt requesting status of referral for Orthopedic. Contact pt at [phone] * Telephone Encounter - Ale Lopes - [...] Visit [facility] MEDICINE [address] [place] [address] Marian Crook MD [address] [place] [address] documented as of this encounter Visit Diagnoses Not on filedocumented in this encounter Additional Health Concerns Assessment Noted Time PHQ-9 Depression Total Score: 22 024 2:02 PM EDT documented as of this encounter Care Teams Outsole Rounder Relationship Specialty Start Date End Date Marian Crook MD [address] [place] [phone] PCP - General Internal Medicine 09/12/23 documented as of this encounter
--- OUTSIDE RECORDS SUMMARY | 2024-06-25 15:33 | XMS_ITS | Encounter Summary ---
Author Organization [email or web address] [facility] Address [address] [place] [address] [address] [place] [address] Care Team Providers Care Lift Slab Operator Name Role Phone Marian Crook MD Primary Care Provider + Reason for Visit * Reason Comments Med Refill Encounter Details Date Type Department Care Team (Late Contact Info) Description 11/27/2023 Refill [facility] MEDICINE [address] [place] [phone] Marian Crook MD [address] [place], [place] [phone] Social History Tobacco Use Types Packs/Day Years [...] Description 07/02/2024 11:45 AM EDT Office Visit [facility] MEDICINE [address] [place] [address] [phone] Marian Crook MD [address] [place], [place] [phone] documented as of this encounter Visit Diagnoses Not on filedocumented in this encounter Additional Health Concerns Assessment Noted Time PHQ-9 Depression Total Score: 16 023 3:25 PM EDT documented as of this encounter Care Teams Lift Slab Operator Relationship Specialty Start Date End Date Marian Crook MD [address] [place] [address] PCP - General Internal Medicine 09/12/23 documented as of this encounter
--- OUTSIDE RECORDS SUMMARY | 2024-06-25 15:33 | XMS_ITS | Encounter Summary ---
Author Organization [employer] Address [address] [facility] [address]t [place] [address] Care Team Providers Care Wheelage Clerk Name Role Phone Marian Crook MD Primary Care Provider + Reason for Visit * Reason Onset Date Comments Med Refill 03/25/2024 Encounter Details Date Type Department Care Team (Late st Contact Info) Description 03/25/2024 Refill [facility] MEDICINE [address] [place] [address] Claritza Leonard DO [address] [place] [address] Social History Tobacco Use Types Packs/Day Years [...] Description 07/02/2024 11:45 AM EDT Office Visit [facility] MEDICINE [address] [place] [address] Marian Crook MD [address] [place] [address] documented as of this encounter Visit Diagnoses Not on filedocumented in this encounter Additional Health Concerns Assessment Noted Time PHQ-9 Depression Total Score: 22 024 2:02 PM EDT documented as of this encounter Care Teams Wheelage Clerk Relationship Specialty Start Date End Date Marian Crook MD [address] [place] [address] PCP - General Internal Medicine 09/12/23 documented as of this encounter
--- OUTSIDE RECORDS SUMMARY | 2024-06-25 15:33 | XMS_ITS | Encounter Summary ---
Author Organization [employer] Address [address] [facility] [address]t [place] [address] Care Team Providers Care Screw Cutter Name Role Phone Marian Crook MD Primary Care Provider + Reason for Visit * Reason Comments Med Change Request Encounter Details Date Type Department Care Team ([facility] st Contact Info) Description 06/17/2024 Refill [facility] MEDICINE [address] [place], [place] [phone] Marian Crook MD [address] [place] [address] Social History Tobacco Use Types Packs/Day Years [...] Description 07/02/2024 11:45 AM EDT Office Visit [facility] MEDICINE [address] [place] [address] Marian Crook MD [address] [place] [address] documented as of this encounter Visit Diagnoses Not on filedocumented in this encounter Additional Health Concerns Assessment Noted Time PHQ-9 Depression Total Score: 22 024 2:02 PM EDT documented as of this encounter Care Teams Screw Cutter Relationship Specialty Start Date End Date Marian Crook MD [address] [place] [address] PCP - General Internal Medicine 09/12/23 documented as of this encounter
--- OUTSIDE RECORDS SUMMARY | 2024-06-25 15:33 | XMS_ITS | Encounter Summary ---
Author Organization [employer] [facility] Address [address] [place] [address] 7 [place] [address] Care Team Providers Care Cinder Dump Crane Operator Name Role Phone [facility] Primary Care Provider [phone] Marian Crook MD Primary Care Provider + Encounter Details Date Type Department Care Team (Late st Contact Info) Description 04/03/2023 Abstract [facility] [address] [place] [address] [facility] [address] [place] [address] Social History Tobacco Use Types Packs/Day Years [...] EDT Office Visit [facility] [address] [place] [address] [phone] Marian Crook MD [address] [place], [place] [phone] documented as of this encounter Visit Diagnoses Not on filedocumented in this encounter Additional Health Concerns Assessment Noted Time PHQ-9 Depression Total Score: 16 023 3:25 PM EDT documented as of this encounter Care Teams Cinder Dump Crane Operator Relationship Specialty Start Date End Date Miladys RACQUEL Brito [address] [place] [address] PCP - General Family Medicine 11/14/21 09/11/23 Marian Crook MD [address] [place] [address] PCP - General Internal Medicine 09/12/23 documented as of this encounter
--- OUTSIDE RECORDS SUMMARY | 2024-06-25 15:33 | XMS_ITS | Encounter Summary ---
Author Organization [employer] Address 75 [facility] 7t [place] [address] Care Team Providers Care Register Of Deeds Name Role Phone Marian Crook MD Primary Care Provider + Reason for Visit * Reason Onset Date Comments Med Refill 03/25/2024 Encounter Details Date Type Department Care Team (Late st Contact Info) Description 03/25/2024 Refill [facility] [address] [place] [address] Claritza Leonard DO [address] [place] [address] Social History Tobacco Use Types Packs/Day Years [...] Description 07/02/2024 11:45 AM EDT Office Visit [facility] [address] [place] [address] Marian Crook MD [address] [place] [address] documented as of this encounter Visit Diagnoses Not on filedocumented in this encounter Additional Health Concerns Assessment Noted Time PHQ-9 Depression Total Score: 22 024 2:02 PM EDT documented as of this encounter Care Teams Register Of Deeds Relationship Specialty Start Date End Date Marian Crook MD [address] [place] [address] PCP - General Internal Medicine 09/12/23 documented as of this encounter
--- OUTSIDE RECORDS SUMMARY | 2024-06-25 15:33 | XMS_ITS | Encounter Summary ---
Author Organization [employer] Address [address] [place] [address] 7t [place] [address] Care Team Providers Care Facilities Administrator Name Role Phone [facility] Primary Care Provider [phone] Marian Crook MD Primary Care Provider + Reason for Visit * Reason Onset Date Comments Nurse Triage 11/18/2022 Encounter Details Date Type Department Care Team (Late st Contact Info) Description 11/18/2022 Telephone [facility] [address] [place] [address] [facility] [address] [place] [address] Nurse Triage Social History Tobacco Use Types [...] Description 07/02/2024 11:45 AM EDT Office Visit [facility] [address] [place] [address] Marian Crook MD [address] [place] [address] documented as of this encounter Visit Diagnoses Not on filedocumented in this encounter Additional Health Concerns Assessment Noted Time PHQ-9 Depression Total Score: 16 06/18/ 023 3:25 PM EDT documented as of this encounter Care Teams Facilities Administrator Relationship Specialty Start Date End Date Alisha Hook FNP [address] [place] [address] PCP - General Family Medicine 11/14/21 09/11/23 Marian Crook MD [address] [place] [address] PCP - General Internal Medicine 09/12/23 documented as of this encounter
--- OUTSIDE RECORDS SUMMARY | 2024-06-25 15:33 | XMS_ITS | Encounter Summary ---
Author Organization [employer] Address 75 [facility] 7t [place] [address] Care Team Providers Care Career Orientation Teacher Name Role Phone Marian Crook MD Primary Care Provider + Reason for Visit * Reason Onset Date Comments Med Refill 03/25/2024 Encounter Details Date Type Department Care Team (Late st Contact Info) Description 03/25/2024 Refill [facility] [address] [place] [address] Marian Crook MD [address] [place] [address] Social History Tobacco Use Types Packs/Day Years [...] Description 07/02/2024 11:45 AM EDT Office Visit [facility] [address] [place] [address] Marian Crook MD [address] [place] [address] documented as of this encounter Visit Diagnoses Not on filedocumented in this encounter Additional Health Concerns Assessment Noted Time PHQ-9 Depression Total Score: 22 024 2:02 PM EDT documented as of this encounter Care Teams Career Orientation Teacher Relationship Specialty Start Date End Date Marian Crook MD [address] [place] [address] PCP - General Internal Medicine 09/12/23 documented as of this encounter
--- OUTSIDE RECORDS SUMMARY | 2024-06-25 15:33 | XMS_ITS | Encounter Summary ---
Author Organization [employer] Address 75 [facility] 7t [place] [address] Care Team Providers Care Stone Repairer Name Role Phone Marian Crook MD Primary Care Provider + Reason for Referral * Consultation (Routine) - Pending Review Specialty Diagnoses / Procedures Referred By Lien barragan Referred To Contact Orthopaedic Surgery Diagnoses Bilateral primary osteoarthritis of knee Marian Crook MD [address] [place] [address] Phone: tel: fax: Referral ID Status Reason Start Date Expiration Date Visits Requested Visits Authorized [id number] Pending Review Specialty Services Required 06/24/2024 06/24/2025 1 1 Encounter Details Date Type Department Care Team (Late st Contact Info) Description 06/24/2024 Orders Only [facility] [address] [place], [place] [phone] Marian Crook MD [address] [place], [place] [phone] Bilateral primary osteoarthritis of knee (Primary Dx) Social History Tobacco Use Types [...] as of this encounter Progress Notes * Marian Crook MD - 06/24/2024 11:33 AM EDT Patient seen by Tata Mooney NP due to OA of both knees. Referral for orthopedics sent, she has appointment on 07/11/2024. Please verify appt. documented in this encounter Plan of Treatment Upcoming Encounters Date Type Department Care Team (Karissa chambers Contact Info) Description 07/02/2024 11:45 AM EDT Office Visit [facility] [address] [place] [address] Marian Crook MD [address] [place] [address] Scheduled Referrals Name Type Priority Associated Diagnoses Orde r Schedule Referral to Orthopaedic Surgery Outpatient Referral Routine Bilateral primary osteoarthritis of knee Expected: 06/24/2024 (Approximate), Expires: 06/24/2025 documented as of this encounter Visit Diagnoses Diagnosis Bilateral primary osteoarthritis of knee- Primary documented in this encounter Additional Health Concerns Assessment Noted Time PHQ-9 Depression Total Score: 22 024 2:02 PM EDT documented as of this encounter Care Teams Stone Repairer Relationship Specialty Start Date End Date Marian Crook MD [address] [place] [address] PCP - General Internal Medicine 09/12/23 documented as of this encounter
--- OUTSIDE RECORDS SUMMARY | 2024-06-25 15:33 | XMS_ITS | Encounter Summary ---
Author Organization [employer] Address 75 [facility] 7t [place] [address] Care Team Providers Care Vocational Adviser Name Role Phone Marian Crook MD Primary Care Provider + Reason for Visit * Reason Comments Pre-visit Planning SDOH screening negat john and tobacco screening negative Encounter Details Date Type Department Care Team ([facility] st Contact Info) Description 06/23/2024 Patient Outreach [facility] [address] [place] [address] Marian Crook MD [address] [place] [address] Pre-visit Planning (SDOH screening negative and tobacco screening negative) Social History Tobacco Use Types Packs/Day Years [...] the past 12 months, has t he [employer], gas, oil or water [employer] threatened to shut off services in your [...] as of this encounter Progress Notes * Marivel Harper - 06/23/2024 10:27 AM EDT KECIA Orta placed successful outbound call to patient for pre-visit planning. Patient name and confirmed. Patient confirms appt date and time, and has transportation. Biggest concern for appointment at this time is low blood pressure Patient advised to bring to appointment a photo id and insurance card. Appropriate screenings completed in anticipation of appointment. documented in this encounter Plan of Treatment Upcoming Encounters Date Type Department Care Team (Late st Contact Info) Description 07/02/2024 11:45 AM EDT Office Visit [facility] [address] [place] [address] Marian Crook MD [address] [place], [place] [phone] documented as of this encounter Visit Diagnoses Not on filedocumented in this encounter Additional Health Concerns Assessment Noted Time PHQ-9 Depression Total Score: 22 024 2:02 PM EDT documented as of this encounter Care Teams Vocational Adviser Relationship Specialty Start Date End Date Marian Crook MD [address] [place] [address] PCP - General Internal Medicine 09/12/23 documented as of this encounter
--- OUTSIDE RECORDS SUMMARY | 2024-06-25 15:33 | XMS_ITS | Encounter Summary ---
Author Organization [employer] Address 75 [facility] 7t [place] [address] Care Team Providers Care Supervisor Assembly Room Name Role Phone Marian Crook MD Primary Care Provider + Reason for Visit * Reason Onset Date Comments Med Refill 03/25/2024 Encounter Details Date Type Department Care Team ([facility] st Contact Info) Description 03/25/2024 Refill [facility] 230 [place] [address] Marian Crook MD [address] [place] [address] Moderate persistent asthma without complication Social History [...] AM EDT Office Visit [facility] [address] [place] [address] Marian Crook MD [address] [place] [address] documented as of this encounter Visit Diagnoses Diagnosis Moderate persistent asthma without complication documented in this encounter Additional Health Concerns Assessment Noted Time PHQ-9 Depression Total Score: 22 024 2:02 PM EDT documented as of this encounter Care Teams Supervisor Assembly Room Relationship Specialty Start Date End Date Marian Crook MD [address] [place] [address] PCP - General Internal Medicine 09/12/23 documented as of this encounter
--- OUTSIDE RECORDS SUMMARY | 2024-06-25 15:33 | XMS_ITS | Encounter Summary ---
Author Organization [employer] Address 75 [facility] 7t [place] [address] Care Team Providers Care Global Coordinator Name Role Phone Marian Crook MD Primary Care Provider + Reason for Visit * Reason Comments Med Refill Encounter Details Date Type Department Care Team ([facility] st Contact Info) Description 06/05/2024 Refill [facility] 230 [place], [place] [phone] Marian Crook MD [address] [place], [place] [phone] Social History Tobacco Use Types Packs/Day Years [...] 07/02/2024 11:45 AM EDT Office Visit [facility] [address] [place] [address] Marian Crook MD [address] [place] [address] documented as of this encounter Visit Diagnoses Not on filedocumented in this encounter Additional Health Concerns Assessment Noted Time PHQ-9 Depression Total Score: 22 024 2:02 PM EDT documented as of this encounter Care Teams Global Coordinator Relationship Specialty Start Date End Date Marian Crook MD [address] [place] [address] PCP - General Internal Medicine 09/12/23 documented as of this encounter
== END 2024-06-25 14:26 | disposition home or self-care (01) ==
LOC: HO.HWS 13:45
PROVIDERS: PCP Internal Medicine; Visit Provider Obstetrics & Gynecology
DX: N93.9 Abnormal uterine and vaginal bleeding, unspecified (principal)
CPT/HCPCS: 58100

== ENCOUNTER 2024-07-07 14:41 | Outpatient (REF) | payer OTHER, SELFPAY ==
--- OUTSIDE RECORDS SUMMARY | 2024-07-07 18:02 | XMS_ITS | Encounter Summary ---
Author Organization [employer] [facility] Address [address] [place] [address] 7 [place] [address] Care Team Providers Care Seismographer Name Role Phone Marian Crook MD Primary Care Provider + Reason for Visit * Reason Comments Med Refill Encounter Details Date Type Department Care Team (Late Contact Info) Description 11/27/2023 Refill [facility] MEDICINE [address] [place] [address] [phone] Marian Crook MD [address] [place], [place] [phone] Social History Tobacco Use Types Packs/Day Years [...] Description 10/12/2024 3:30 PM EDT Office Visit [facility] MEDICINE [address] [place] [address] [phone] Marian Crook MD [address] [place], [place] [phone] documented as of this encounter Visit Diagnoses Not on filedocumented in this encounter Additional Health Concerns Assessment Noted Time PHQ-9 Depression Total Score: 16 023 3:25 PM EDT documented as of this encounter Care Teams Seismographer Relationship Specialty Start Date End Date Marian Crook MD [address] [place] [address] PCP - General Internal Medicine 09/12/23 documented as of this encounter
--- OUTSIDE RECORDS SUMMARY | 2024-07-07 18:02 | XMS_ITS | Encounter Summary ---
Author Organization [employer] Address [address] [facility] 7t [place] [address] Care Team Providers Care Hay Buckler Name Role Phone Marian Crook MD Primary Care Provider + Reason for Visit * Reason Onset Date Comments Med Refill 03/25/2024 Encounter Details Date Type Department Care Team (Late st Contact Info) Description 03/25/2024 Refill [facility] MEDICINE [address] [place] [address] Marian Crook MD [address] [place] [address] Social History Tobacco Use Types Packs/Day Years [...] Description 10/12/2024 3:30 PM EDT Office Visit [facility] MEDICINE [address] [place] [address] Marian Crook MD [address] [place] [address] documented as of this encounter Visit Diagnoses Not on filedocumented in this encounter Additional Health Concerns Assessment Noted Time PHQ-9 Depression Total Score: 22 024 2:02 PM EDT documented as of this encounter Care Teams Hay Buckler Relationship Specialty Start Date End Date Marian Crook MD [address] [place] [address] PCP - General Internal Medicine 09/12/23 documented as of this encounter
--- OUTSIDE RECORDS SUMMARY | 2024-07-07 18:02 | XMS_ITS | Clinical Summary ---
Author Organization [employer] Address [address] [place] [address] 7[address] [place] [address] Care Team Providers Care Habitat Management Coordinator Name Role Phone Marian Crook MD [...] related to patient's menorrhagia(she is followed by [facility]) + significant diuresis. Patient will have increase [...] for this letter, she has appt with [facility] next week. I told her to reach out to legal recruiter to help her write a letter so that housing give her some more time to get the letter from provider. She will res tart Effexor for anxiety and fu with me in 6m Encounters Date Type Department Care Team Description 07/02/2024 11:45 AM EDT Office Visit [facility] [address] [place] [phone] Marian Crook MD Polyuria (Primary Dx); Dizziness; Chronic low back pain without sciatica, unspecified back pain laterality 07/02/2024 Travel 06/30/2024 Telephone [facility] [address] [place] [phone] Marian Crook MD Chart prep 06/25/2024 Orders Only GENERIC EXTERNAL DATA DEPARTMENT Provider, Generic External Data 06/24/2024 Orders Only [facility] [address] [place] [phone] Marian Crook MD Bilateral primary osteoarthritis of knee (Primary Dx) 06/23/2024 Patient Outreach [address] [address] Marian Crook MD Pre-visit Planning (SDOH screening negative and tobacco screening negative) 06/18/2024 Orders Only GENERIC EXTERNAL DATA DEPARTMENT Provider, Generic External Data 06/17/2024 Refill [facility] [address] [place] [address] Marian Crook MD 06/05/2024 Refill [facility] [address] [place] [phone] Marian Crook MD 06/05/2024 Refill [facility] [address] [place] [phone] Claritza Leonard DO 06/04/2024 Population Health Risk Score [facility] Department [address] [phone] Provider, Population Health Generic 06/02/2024 Telephone [facility] [address] [place] [address] Marian Crook MD Med Refill 06/02/2024 Telephone [facility] [address] [place] [phone] Marian Crook MD Referral 06/02/2024 Refill [facility] [address] [place] [address] Marian Crook MD 05/28/2024 3:15 PM EST Office Visit [address] [address] Tata Fink NP Chronic pain of both knees (Primary Dx) 05/26/2024 Telephone [facility] [address] [place] [phone] Marian Crook MD Nurse Triage 05/13/2024 Refill [facility] [address] [place] [address] 329[address] Marian Crook MD Moderate persistent asthma without complication 05/07/2024 Refill [facility] [address] [place] [phone] Marian Crook MD 05/05/2024 Orders Only GENERIC EXTERNAL DATA DEPARTMENT Provider, Generic External Data 04/29/2024 Orders Only [facility] [address] [place] [phone] Claritza Leonard DO Bilateral renal cysts (Primary Dx); Uterine leiomyoma, unspecified location; Excessive bleeding in premenopausal period 04/29/[address] [phone] Marian Crook MD Nurse Triage 04/27/2024 Orders Only GENERIC EXTERNAL DATA DEPARTMENT Provider, Generic External Data 04/26/2024 Orders Only GENERIC EXTERNAL DATA DEPARTMENT Provider, Generic External Data 04/26/[address] [address] Lina Yarbrough, RN Results 04/23/2024 Telephone [facility] [address] [place] [address] Marian Crook MD June04/13/2024 Refill [facility] [address] [place] [phone] Marian Crook MD 04/09/2024 Orders Only [facility] [address] [place] [phone] Claritza Leonard, Abnormal MRI, lumbar spine (Primary [...] 10/12/2024 3:30 PM EDT Office Visit [facility] [address] [place] [address] Marian Crook MD [address] [place] [address] Health Maintenance Due Date Last [...] Media Lot # [id number] Lot# Expiration Date 853 Urine 07/02/2024 12:4 2 PM EDT Marian Crook MD POINT OF CARE TEST ENTER /EDIT ORDERABLES Final Result * Hematoxylin and Eosin Stain (06/25/2024 3:02 PM EDT) 06/25/2024 3:02 PM EDT 06/25/2024 3:30 PM EDT Narrative [facility] - 06/28/2024 12:55 PM EDT ----- ------- Name: Corina Nielsen ?Age/Sex: 49/F ? : 1975 Unit#: [id number] ?? Attend Dr: Pj Posadas MD ?Re06/25/24 ?Status: DEP REF ? Location: HO.LNP ?Disch: ? ----- ------- SPEC : [id number] ? RECD: 06/25/24-1529 ? STATUS: ??SOUT ? REQ NUM: [id number] ? LAURA: 06/25/24-150 ? SUBM DR: Pj [...] microscopic examination, multiple pieces in cassette A. ??([facility]) Copies To: ?? Marian Crook MD ?? [facility] ?? [address] ?? [place] [address] ?? [phone] ?? Pj Posadas MD ?? [facility] Women[facility] Services ?? [address] ?? [place] [address] ?? [phone] ----- ------- Signed (signature on file) Tracie Montejo 06/28/24 1255 ? ----- ------- ? END OF REPORT ? us Generic External Data Provider LAB BLOOD ORDERAB LES Final Result Performing Organization Address [facility] de Phone Number [facility] [address] [place] [address] [phone] * High Sensitivity Troponin I (06/18/2024 11:08 AM EDT) Only the most recent of2 resultswithin the time period is included. TROPONIN I HIGH SENSITIVITY <2.7 <3.5 - 17.0 ng/L [facility] Comment:The Thomason high sens itivity Troponin-I results should beused in conjunction with other diagnostic information suchas ECG, clinical observations and information, and patientsymptoms to aid in the diagnosis of [place]. 06/18/2024 11:0 8 AM EDT 06/18/2024 11:15 AM EDT us Generic External Data Provider LAB BLOOD ORDERAB LES Final Result Performing Organization Address [facility] de Phone Number [facility] [address] [place] [address] [phone] * XR Chest 1 View (06/18/2024 9:10 AM EDT) Anatomical Region Laterality Modality Chest Radiographic Irais ging 06/18/2024 9:10 AM EDT Narrative 06/18/2024 9:37 AM EDT ? [facility] ?[address] ?[place] [address] ?XRay Report ? Signed ? Patient: Abrams James,Corina ?MR#: [id number] ?? [id number] ? : 1975 ?Acct:[id number] ? Age/Sex: 49 / F ?ADM Date: 03/28/25 ? Loc: HO.ED ? Attending Dr: ? Ordering Physician: Lisa Nguyen DO ?? Date of Service: 06/18/24 ?? Procedure(s): XR chest 1V ?? Accession Number(s): [id number] ? cc: Marian Crook MD; Lisa Nguyen [...] ? DD/ 0910 ? TD/TT: 06/18/24924 ? Energy Consultant: ? Procedure Note Donotannater, Image - 06/18/2024 [place] [address] XRay Report Signed Patient: Yarelis Nielsen#: [id number] : 1975Acct:[id number] Age/Sex: 49 / FADM Date: 06/18/24 Loc: HO.ED Attending Dr: Ordering Physician: Lisa Nguyen DO Date of Service: 06/18/24 Procedure(s): XR chest 1V Accession Number(s): [id number] cc: Marian Crook MD; Lisa Nguyen DO [...] in OV> 06/18/24933 DD/ 9 TD/TT: 06/18/24924 Energy Consultant: [facility] External Provider IMG XR PROCEDURES Final Result * US VENOUS DUPLEX LE LT (06/18/2024 9:09 AM EDT) Anatomical Region Laterality Modality Abdomen Ultrasound 06/18/2024 9:09 AM EDT Narrative 06/18/2024 9:20 AM EDT ? [facility] ?[address] ?[place] [address] ? Ultrasound Report ? Signed ? Patient: Corina Nielsen ?MR#: [id number] ?? [id number] ? : 1975 ?Acct:[id number] ? Age/Sex: 49 / F ?ADM Date: 06/18/24 ? Loc: HO.ED ? Attending Dr: ? Ordering Physician: Lsia Nguyen DO ?? Date of Service: 06/18/24 ?? Procedure(s): US venous duplex LE LT ?? Accession Number(s): [id number] ? cc: Marian Crook MD; Lisa Nguyen [...] DD/ 8 ? TD/TT: 03/28/25 0914 ? Energy Consultant: ? Procedure Note Donotuseinterpreter, Image - 06/18/[address] [address] Ultrasound Report Signed Patient: Yarelis Nielsen#: [id number] : 1975Acct:[id number] Age/Sex: 49 / FADM Date: 06/18/24 Loc: HO.ED Attending Dr: Ordering Physician: Lisa Nguyen DO Date of Service: 06/18/24 Procedure(s): US venous duplex LE LT Accession Number(s): [id number] cc: Marian Crook MD; Lisa Nguyen DO [...] MDin OV> 06/18/24917 DD/ 8 TD/TT: 06/18/24913 Energy Consultant: us [facility] External Provider IMG US PROCEDURES Final Result * D Dimer High Sensitivity (06/18/2024 8:29 AM EDT) D Dimer High Sensitivity <150 NG/ML [facility] Comment:D-DIMER HS REFERENCE RANGENote: Our [...] Result [facility] [address] [place] [address] [phone] * (ABNORMAL) CBC auto differential (06/18/2024 8:29 AM EDT) Only the most recent of2 resultswithin the time period is included. White Blood Count 6.1 4.8 - 10.8 X10*3/uL [facility] Red Blood Count 4.36 4.20 - 5.50 X10*6/uL [facility] Hemoglobin 13.5 12.0 - 16.0 g/dl [facility] Hematocrit 40.2 37.0 - 47.0 % [facility] Mean Corpuscular Volume 92.2 80.0 - 98.0 fL [facility] Mean Corpuscular Hemoglobin 31.0 27.0 - 33.0 pg [facility] Mean Corpuscular HGB Conc 33.6 31.0 - 35.0 g/dl [facility] Red Cell Distribution Width 13.5 11.0 - 16.0 % [facility] Platelet Count 192 160 - 400 X10*3/uL [facility] Mean Platelet Volume 10.5 9.4 - 12.3 fL [facility] Neutrophils Percent Auto 76.0(H) 45 - 73 % [facility] Imm Gran Pct Auto 0.3 0.0 - 0.4 % [facility] Lymphocytes Percent Auto 16.3(L) 20 - 40 % [facility] Monocytes Percent Auto 6.2 2 - 11 % [facility] Eosinophils Percent Auto 0.7 0 - 4 % [facility] Basophils Percent Auto 0.5 0 - 2 % [facility] NRBC Pct Auto 0.0 0.0 - 0.2 /100WBC [facility] Neutrophils Absolute Auto 4.7 2.0 - 8.3 x10*3/uL [facility] Imm Gran Abs Auto 0.02 0.00 - 0.03 X10*3/uL [facility] Lymphocytes Absolute Auto 1.0(L) 1.2 - 4.9 X10*3/uL [facility] Monocytes Absolute Auto 0.4 0.1 - 1.2 X10*3/uL [facility] Eosinophils Absolute Auto 0.0 0.0 - 0.4 X10*3/uL [facility] Basophils Absolute Auto 0.0 0.0 - 0.2 X10*3/uL [facility] NRBC Abs Auto 0.000 0.0 - 0.012 X10*3/uL [facility] 06/18/2024 8:29 AM EDT 06/18/2024 8:32 AM EDT us Generic External Data Provider LAB BLOOD ORDERAB LES Final Result [facility] [address] [place] [phone] * Prothrombin Time-INR (06/18/2024 8:29 AM EDT) Only the most recent of2 resultswithin the time period is included. Prothrombin Time 12.3 10.9 - 12.4 SEC [facility] INTERNATIONAL NORM RATIO 1.1 0.9 - 1.1 [facility] [...] ORDERAB LES Final Result Performing Organization Address [facility] Co de Phone Number [facility] [address] [place] [phone] * Magnesium (06/18/2024 8:29 AM EDT) Only the most recent of2 resultswithin the time period is included. Pathologist [facility] Magnesium 1.9 1.6 - 2.6 mg/dL [facility] 06/18/2024 8:29 AM EDT 06/18/2024 8:32 AM EDT us Generic External Data Provider LAB BLOOD ORDERAB LES Final Result Performing Organization Address [facility] de Phone Number [facility] [address] [place] [phone] * (ABNORMAL) Comprehensive Metabolic Panel (06/18/2024 8:29 AM EDT) Only the most recent of2 resultswithin the time period is included. Sodium 138 135 - 145 mmol/L [facility] Potassium 3.9 3.3 - 5.1 mmol/L [facility] Chloride 112(H) 96 - 108 mmol/L [facility] Carbon Dioxide 21(L) 22 - 29 mmol/L [facility] Anion Gap 9(L) 12 - 20 [facility] Urea Nitrogen (BUN) 15 9 - 16 mg/dL [facility] Creatinine, Serum 0.70 0.5 - 1.4 mg/dL [facility] Creatinine Clr Calc Pharmacy 95.9 [facility] Comment:Provided height and weight: 160.02 cm,77.7 kg.eGFR (calculated from the MDRD study equation) and eCrCl(calculated from the Cockcroft-Gault equation) are based ondifferent parameters and may not yield comparable results.If eCrCl result is absurd, please check patient'sheight/weight. Estimated Glomerular Filt Rate >60 [facility] Comment:Chronic Kidney Disea se: Estimated GFR < 60 mL/min/1.42v3Jdjvol Kidney Disease: Estimated GFR < 15 mL/min/1.73m2 Glucose 93 60 - 115 mg/dL [facility] Calcium 8.9 8.4 - 10.2 mg/dL [facility] Bilirubin, Total 0.5 0.0 - 1.0 mg/dL [facility] Aspartate Amino Transferase 21 5 - 31 U/L [facility] Alanine Aminotransferase 16 0 - 31 U/L [facility] Total Protein 7.0 6.5 - 8.0 g/dL [facility] Albumin Level 4.1 3.5 - 5.0 g/dL [facility] Alkaline Phosphatase 64 39 - 117 U/L [facility] 06/18/2024 8:29 AM EDT 06/18/2024 8:32 AM EDT us Generic External Data Provider LAB BLOOD ORDERAB LES Final Result [facility] [address] [place] [phone] * XR Knee 4+ Views Right (05/31/2024 2:29 PM EDT) Anatomical Region Laterality Modality Lower Extremities, Knee Right Radiogra phic Imaging 05/31/2024 2:29 PM EDT Narrative 05/31/2024 3:04 PM EDT ?[facility] ?[address] ?[place] [address] ?XRay Report ? Signed ? Patient: Abrams James,Corina ?MR#: [id number] ?? [id number] ? : 1975 ?Acct:[id number] ? Age/Sex: 49 / F ?ADM Date: 03/10/25 ? Loc: HO.HHCX ? Attending Dr: Tata Fink ? Ordering Physician: Tata Fink ?? Date of Service: 05/31/24 ?? Procedure(s): XR knee RT 4V ?? Accession Number(s): [id number] ? cc: Tata Fink ? EXAMINATION: ?? [...] DD/ 1429 ? TD/TT: 05/31/24 1455 ? Energy Consultant: ? Procedure Note Bonita, Image - 05/31/[address] [address] XRay Report Signed Patient: Yarelis Nielsen#: [id number] : 1975Acct:[id number] Age/Sex: 49 / FADM Date: 05/31/24 Loc: HO.HHCX Attending Dr: Tata Fink Ordering Physician: Tata Fink Date of Service: 05/31/24 Procedure(s): XR knee RT 4V Accession Number(s): [id number] cc: Tata Fink EXAMINATION: XR KNEE, RIGHT [...] 05/31/24 1501 DD/ 1429 TD/TT: 05/31/24 1455 Energy Consultant: us Tata Fink [employer]ING [employer] IMG XR PROCEDURES Final Result * XR Knee 4+ Views Left (05/31/2024 2:29 PM EDT) Anatomical Region Laterality Modality Lower Extremities, Knee Left Radiogra phic Imaging 05/31/2024 2:29 PM EDT Narrative 05/31/2024 3:05 PM EDT ?[facility] ?[address] ?[place] [address] ?XRay Report ? Signed ? Patient: Jose Alberto Cardonasus,Corina ?MR#: [id number] ?? [id number] ? : 1975 ?Acct:[id number] ? Age/Sex: 49 / F ?ADM Date: 05/31/24 ? Loc: HO.HHCX ? Attending : Tata Fink ? Ordering Physician: Tata Fink ?? Date of Service: 05/31/24 ?? Procedure(s): XR knee LT 4V ?? Accession Number(s): [id number] ? cc: Tata Fink ? EXAMINATION: ?? [...] DD/ 1429 ? TD/TT: 05/31/24 1455 ? Energy Consultant: ? Procedure Note Bonita, Image - 05/31/[address] [address] XRay Report Signed Patient: Yarelis Nielsen#: [id number] : 1975Acct:[id number] Age/Sex: 49 / FADM Date: 05/31/24 Loc: HO.HHCX Attending Dr: Tata Fink Ordering Physician: Tata Fink Date of Service: 05/31/24 Procedure(s): XR knee LT 4V Accession Number(s): [id number] cc: Tata Fink EXAMINATION: XR KNEE, LEFT [...] 05/31/24 1502 DD/ 1429 TD/TT: 05/31/24 1455 Energy Consultant: us Tata Fink [employer]ING [employer] IMG XR PROCEDURES Final Result * TSH with Reflex to Free T4 (05/05/2024 11:23 AM EST) TSH reflex Free T4 0.78 0.32 - 4.0 uIU/mL [facility] 05/05/2024 11:2 3 AM EST 05/05/2024 11:23 AM EST us Generic External Data Provider LAB BLOOD ORDERAB LES Final Result [facility] [address] [place] [address] [phone] * (ABNORMAL) CBC (05/05/2024 11:23 AM EST) White Blood Count 5.5 4.8 - 10.8 X10*3/uL [facility] Red Blood Count 3.92(L) 4.20 - 5.50 X10*6/uL [facility] Hemoglobin 12.0 12.0 - 16.0 g/dl [facility] Hematocrit 36.3(L) 37.0 - 47.0 % [facility] Mean Corpuscular Volume 92.6 80.0 - 98.0 fL [facility] Mean Corpuscular Hemoglobin 30.6 27.0 - 33.0 pg [facility] Mean Corpuscular HGB Conc 33.1 31.0 - 35.0 g/dl [facility] Red Cell Distribution Width 12.3 11.0 - 16.0 % [facility] Platelet Count 264 160 - 400 X10*3/uL [facility] Mean Platelet Volume 11.1 9.4 - 12.3 fL [facility] NRBC Pct Auto 0.0 0.0 - 0.2 /100WBC [facility] NRBC Abs Auto 0.000 0.0 - 0.012 X10*3/uL [facility] 05/05/2024 11:2 3 AM EST 05/05/2024 11:23 AM EST us Generic External Data Provider LAB BLOOD ORDERAB LES Final Result [facility] [address] [place] [phone] * hCG, Total, Quantitative (05/05/2024 11:23 AM EST) HCG Quantitative <2 mIU/mL [facility] Comment:Weeks post LMP Appro ximate hCG(Last Menstrual Period) Range (mIU/ml)3 - 4 weeks 9 - 1304 - 5 weeks 75 - 2,6005 - 6 weeks 850 - 20,8006 - 7 weeks 4000 - 100,2007 - 12 weeks 11,500 - 289,31946 - 16 weeks 18,300 - 137,04757 - 29 weeks (2nd trimester) 1,400 - 53,56024 - 41 weeks (3rd trimester) 940 - [...] Result [facility] [address] [place] [phone] * LH (05/05/2024 11:23 AM EST) Lutenizing Hormone 7.8 mIU/mL [facility] Comment:Reference Range Foll icular Phase 1.9-12.5 Mid-Cycle Peak 8.7-76.3 Luteal Phase 0.5-16.9 Postmenopausal 10.0-54.7THIS TEST WAS PERFORMED AT:[employer] [place] [id number] OLIVAS MD 05/05/2024 11:2 3 AM EST 05/05/2024 11:23 AM EST Generic External Data Provider LAB BLOOD ORDERAB LES Final Result Performing Organization Address [facility] de Phone Number [facility] [address] [place] [phone] * FSH (05/05/2024 11:23 AM EST) [facility] Follicle Stimulating Hormone 14.4 mIU/mL [facility] Comment:Reference Range Foll icular Phase 2.5-10.2 Mid-cycle Peak 3.1-17.7 Luteal Phase 1.5- 9.1 Postmenopausal 23.0-116.3THIS TEST WAS PERFORMED AT:[employer] [address] [phone] OLIVAS MD 05/05/2024 11:2 3 AM EST 05/05/2024 11:23 AM EST Generic External Data Provider LAB BLOOD ORDERAB LES Final Result Performing Organization Address [facility] de Phone Number [facility] [address] [place] [phone] * Chlamydia/N. Gonorrhoeae RNA, TMA, Urogenitial (05/05/2024 11:19 AM EST) Pathologist [facility] CT PCR NOT DETECTED Not Detect. [facility] Comment:A not detected test result [...] psychologicalconsequences. NG PCR NOT DETECTED Not Detect. [facility] Comment:A not detected test result [...] AM EST 05/05/2024 11:56 AM EST Narrative [facility] - 05/06/2024 7:21 AM EST Vaginal us Generic External Data Provider LAB MICROBIOLOGY - GENERAL ORDERABLES Final Result Performing Organization Address City/State/[facility] Co de Phone Number [facility] [address] [place] [phone] * HPV DNA, Low/High Risk (05/05/2024 10:22 AM EST) HPV High Risk Negative Negative [facility] HPV Genotype 16 Negative Negative [facility] HPV Genotype 18 Negative Negative [facility] Comment:HPV testing performe d at [facility] (CLIA#[id number]), [address] [place] [address].Testing for HPV was performed using the [employer]system. The presence of HPV in the female [...] LES Final Result Performing Organization Address City/State/[facility] Co de Phone Number [facility] [address] [place] [phone] * Pap Smear (05/05/2024 10:22 AM EST) 05/05/2024 10:2 2 AM EST 05/06/2024 6:10 AM EST Narrative [facility] - 05/11/2024 9:16 AM EST ----- ------- Name: Corina Nielsen ?Age/Sex: 49/F ? : 1975 Unit#: [id number] ?? Attend Dr: Pj Posadas MD ?Re05/05/24 ?Status: DEP REF ? Location: HO.LNP ?Disch: ? ----- ------- SPEC : [id number] ? RECD: 05/06/24 ? STATUS: ??SOUT ? REQ NUM: [id number] ? LAURA: 05/05/242 ? SUBM DR: Pj [...] Copies To: ?? Marian Crook MD ?? [facility] ?? [address] ?? [place] [address] ?? [phone] ?? Pj Posadas MD ?? [facility] ?? [address] ?? [place] [address] ?? [phone] ----- ------- Signed (signature on file) SCARLET Hernandez (ASCP) 05/11/24 0916 ? ----- ------- ? END OF REPORT ? Generic External Data Provider LAB CYTOLOGY SHONA VIRAMONTES Final Result [facility] [address] [facility] [place] [phone] * (ABNORMAL) Urinalysis, Complete, with Reflex to Culture (04/27/2024 12:31 AM EST) Color Urine Yellow [facility] Appearance Urine Clear [facility] PH 5.5 5.0 - 9.0 [facility] Glucose Urine UA Negative Negative mg/dL [facility] Urine Blood Moderate (2+)(A) Negative [facility] Specific Disney - Urine 1.020 1.005 - 1.025 [facility] Urine Protein Negative Neg-Trace mg/dL [facility] Urine Ketones Negative Negative mg/dL [facility] Nitrite Urine Negative Negative [facility] Leukocyte Esterase Urine Negative Negative [facility] RBC Urine >20(A) 0 - 2 /HPF [facility] Urine WBC 0-5 0 - 5 /HPF [facility] Urine Squamous Epithelial Cell 0-2 0 - 2 /HPF [facility] Urine Bacteria None Seen None Seen [facility] Hyaline Casts, Urine 0-2 0 - 2 /LPF [facility] 04/27/2024 12:3 1 AM EST 04/27/2024 12:34 AM EST Narrative [facility] - 04/27/2024 12:42 AM EST Urine, Clean Catch us Generic External Data Provider LAB URINE ORDERAB LES Final Result Performing Organization Address City/[facility]/ZIP Co de Phone Number [facility] [address] [place] [address] [phone] * Partial Thromboplastin Time, Activated (APTT) (04/26/2024 4:47 PM EST) Partial Thromboplastin Time 31.7 26.0 - 36.8 SEC [facility] Comment:For information rega rding the monitoring of direct thrombininhibitors, please refer to Pharmacy. 04/26/2024 4:47 PM EST 04/26/2024 4:50 PM EST us Generic External Data Provider LAB BLOOD ORDERAB LES Final Result Performing Organization Address [facility]/ZIP Co de Phone Number [facility] [address] [place] [address] [phone] * US RENAL BI (04/21/2024 12:04 PM EST) Anatomical Region Laterality Modality Abdomen Ultrasound 04/21/2024 12:0 4 PM EST Narrative 04/21/2024 12:05 PM EST ? [facility] ?[address] ?[place] [address] ? Ultrasound Report ? Signed ? Patient: Abrams James,Corina ?MR#: [id number] ?? [id number] ? : 1975 ?Acct:[id number] ? Age/Sex: 49 / F ?ADM Date: 04/20/24 ? Loc: HO.US ? Attending Dr: Claritza Leonard DO ? Ordering Physician: Claritza Leonard DO ?? Date of Service: 04/20/24 ?? Procedure(s): US renal BI ?? Accession Number(s): [id number] ? cc: Claritza Leonard DO ? CLINICAL [...] DD/ 1204 ? TD/TT: 04/21/24 1204 ? Energy Consultant: ? Procedure Note Bonita, Image - 04/21/[address] [address] Ultrasound Report Signed Patient: Yarelis Nielsen#: [id number] : 1975Acct:[id number] Age/Sex: 49 / FADM Date: 04/20/24 Loc: HO.US Attending Dr: Claritza Leonard DO Ordering Physician: Claritza Leonard DO Date of Service: 04/20/24 Procedure(s): US renal BI Accession Number(s): [id number] cc: Claritza Leonard DO CLINICAL HISTORY: probable [...] 04/21/24 1204 DD/ 1204 TD/TT: 04/21/24 1204 Energy Consultant: us Claritza Leonard DO IMG US PROCEDURES Edited Res ult - Final * US Pelvis Transvaginal (04/20/2024 3:25 PM EST) Anatomical Region Laterality Modality Pelvis Ultrasound 04/20/2024 3:25 PM EST Narrative 04/21/2024 9:28 AM EST ? [facility] ?[address] ?[place] [address] ? Ultrasound Report ? Signed ? Patient: Abrams James,Corina ?MR#: [id number] ?? [id number] ? : 1975 ?Acct:[id number] ? Age/Sex: 49 / F ?ADM Date: 01/28/25 ? Loc: HO.US ? Attending Jacqueline Leonard DO ? Ordering Physician: Claritza Leonard DO ?? Date of Service: 04/20/24 ?? Procedure(s): US pelvic and transvaginal ?? Accession Number(s): [id number] ? cc: Claritza Leonard DO ? EXAMINATION: [...] DD/ 1525 ? TD/TT: 04/20/24 1555 ? Energy Consultant: ? Procedure Note Bonita, Image - 04/21/2024 [address] [place] [address] Ultrasound Report Signed Patient: Yarelis Nielsen#: [id number] : 1975Acct:[id number] Age/Sex: 49 / FADM Date: 04/20/24 Loc: HO.US Attending Dr: lCaritza Leonard DO Ordering Physician: Claritza Leonard DO Date of Service: 04/20/24 Procedure(s): US pelvic and transvaginal Accession Number(s): [id number] cc: Claritza Leonard DO EXAMINATION: US PELVIS [...] 04/21/24 0926 DD/ 1525 TD/TT: 04/20/24 1555 Energy Consultant: us Claritza Leonard DO IMG US PROCEDURES Edited Res ult - Final * Hepatitis C Ab (03/27/2024 10:19 AM EST) [facility] Hepatitis C Antibody Nonreactive Nonreactive [facility] Comment:Antibodies to HCV no t detected; does not exclude early acuteHCV infection. 03/27/2024 10:1 9 AM EST 03/27/2024 10:19 AM EST Generic External Data Provider LAB BLOOD ORDERAB LES Final Result Performing Organization Address [facility] Co de Phone Number [facility] [address] [place] [address] [phone] * HIV-1/2 Antigen and Antibodies, Fourth Generation, with Reflexes (03/27/2024 10:19 AM EST) [facility] HIV AB/AG Nonreactive Nonreactive [facility] Comment:HIV-1 p24 Ag and/or HIV-1/HIV-2 Ab not detected.A test result that is nonreactive does not exclude thepossibility of exposure to or infection with HIV-1 and/orHIV-2. Nonreactive results in this assay for individualswith prior exposure to HIV-1 and/or HIV-2 may be due toantigen and antibody levels that are below the limit ofdetection of this assay.The [employer] HIV Ag/Ab Combo assay result andsupplemental assay results should be interpreted inconjunction with the patient's clinical presentation,history and other laboratory results. If the results areinconsistent with clinical evidence, additional testing issuggested to confirm the result. 03/27/2024 10:1 9 AM EST 03/27/2024 10:19 AM EST us Generic External Data Provider LAB BLOOD ORDERAB LES Final Result Performing Organization Address [facility] Co de Phone Number [facility] [address] [place] [phone] * Cologuard?? colon cancer screening (02/02/2024 9:15 AM EST) [facility] Cologuard Result Negative Negative 02/08/20 24 2:05 AM [facility] (CLIA #:[id number]) Comment: NEGATIVE TEST RESULT. A negative Cologuard [...] cancer. ??Following a negative Cologuard result, the [place] Cancer Society and U.S. Multi-Society Task Force screening guidelines recommend a Cologuard re-screening interval of 3 years. References: [place] [employer] Guideline for Colorectal Cancer Screening: https://www.cancer.org/cancer/qnefj-uwdlml-vpxjkx/ehjskizqs-ygtyyskmw-rqfdgoq/ac s-rec ommendations.html.; Hector DK, Julio Cesar CR, Janet TroncosoK, Colorectal Cancer Screening: Recommendations for Physicians and Patients from the U.S. Multi-Society Task Force on Colorectal Cancer Screening , Am J Gastroenterology 2017; 112:2479-1147. TEST DESCRIPTION: Composite algorithmic analysis of stool [...] (Isadora Rodriguez al, N Engl J Med 2014;370(14):0465-9654.) Cologuard may produce a false negative or false positive result (no colorectal cancer or precancerous polyp present at colonoscopy follow up). A negative Cologuard test result does not guarantee the absence of CRC or advanced adenoma (pre-cancer). The current Cologuard screening interval is every 3 years. ([place] [employer] and U.S. Multi-Society Task Force). Cologuard performance data in a 10,000 patient pivotal study using colonoscopy as the reference method can be accessed at the following location: www.[employer].Quickoffice/results. Additional description of the Cologuard test process, warnings and precautions can be found at www.[employer].Quickoffice. Stool specimen (specimen) Rectal contents / Unknown 02/02/2024 9:15 AM EST 02/03/2024 10:52 AM EST Marian Crook MD LAB MOLECULAR DIAGNOSTIC S ORDERABLES Final Result [facility] (CLIA #:[id number]) [place] [place] [address], * BI Mammogram Screening Tomosynthesis Bilateral (12/05/2023 3:30 PM EDT) Anatomical Region Laterality Modality Breast Bilateral Mammography 12/05/2023 3:30 PM EDT Narrative 12/19/2023 8:58 AM EDT ? [place] [place] [facility] ? [address] ?[place] [address] ? Mammography Report ? Signed ? Patient: Abrams James,Corina ?MR#: [id number] ?? [id number] ? : 1975 ?Acct:[id number] ? Age/Sex: 48 / F ?ADM Date: 12/05/23 ? Loc: HO.MAMMO ? Attending Dr: Marian Crook MD ? Ordering Physician: Marian Crook MD ?Results: 1Ne ?? gative ? Date of Service: 12/05/23 ?Follow Up: 1 Year From Orig ?? inal Mammogram ? Procedure(s): MM tomosynthesis screening BI ?? Accession Number(s): [id number] ? cc: Marian Crook MD ? EXAMINATION: [...] DD/ 1530 ? TD/TT: 12/05/23 1540 ? Energy Consultant: ? Procedure Note Donotnirmalainterpreter, Image - 12/19/2023 [facility] [address] [place] [address] Mammography Report Signed Patient: Yarelis Nielsen#: [id number] : 1975Acct:[id number] Age/Sex: 48 / FADM Date: 12/05/23 Loc: HO.MAMMO Attending Dr: Marian Crook MD Ordering Physician: Marian Crook MDResults: 1Ne gative Date of Service: 12/05/23Follow Up: 1 Year From Orig inal Mammogram Procedure(s): MM tomosynthesis screening BI Accession Number(s): [id number] cc: Marian Crook MD EXAMINATION: MM SCREENING [...] 12/19/23 0855 DD/ 1530 TD/TT: 12/05/23 1540 Energy Consultant: Marian Crook MD IMG BI PROCEDURES Final Result from Last 3 Months or Most Recently Relevant to Health Maintenance Insurance [facility] Care Teams Habitat Management Coordinator Relationship Specialty Start Date End Date Marian Crook MD [address] [place] [phone] PCP - General Internal Medicine 09/12/23
--- OUTSIDE RECORDS SUMMARY | 2024-07-07 18:02 | XMS_ITS | Encounter Summary ---
Author Organization [employer] Address [address] [facility] 7t [place] [address] Care Team Providers Care Slubber Runner Name Role Phone Marian Crook MD Primary Care Provider + Reason for Visit * Reason Onset Date Comments Med Refill 03/25/2024 Encounter Details Date Type Department Care Team (Late st Contact Info) Description 03/25/2024 Refill [facility] MEDICINE [address] [place] [address] Claritza Leonard DO [address] [place] [address] Social History Tobacco Use Types Packs/Day Years [...] Description 10/12/2024 3:30 PM EDT Office Visit [facility] MEDICINE [address] [place] [address] Marian Crook MD [address] [place] [address] documented as of this encounter Visit Diagnoses Not on filedocumented in this encounter Additional Health Concerns Assessment Noted Time PHQ-9 Depression Total Score: 22 024 2:02 PM EDT documented as of this encounter Care Teams Slubber Runner Relationship Specialty Start Date End Date Marian Crook MD [address] [place] [address] PCP - General Internal Medicine 09/12/23 documented as of this encounter
--- OUTSIDE RECORDS SUMMARY | 2024-07-07 18:02 | XMS_ITS | Encounter Summary ---
Author Organization [employer] Address [address] [facility] [address] 7t [place] [address] Care Team Providers Care Bull Riveter Name Role Phone Marian Crook MD Primary [...] Description 10/12/2024 3:30 PM EDT Office Visit [facility] MEDICINE [address] [place] [address] Marian Crook MD [address] [place] [address] documented as of this encounter Visit Diagnoses Not on filedocumented in this encounter Additional Health Concerns Assessment Noted Time PHQ-9 Depression Total Score: 22 024 2:02 PM EDT documented as of this encounter Care Teams Bull Riveter Relationship Specialty Start Date End Date Marian Crook MD [address] [place] [address] PCP - General Internal Medicine 09/12/23 documented as of this encounter
--- OUTSIDE RECORDS SUMMARY | 2024-07-07 18:02 | XMS_ITS | Encounter Summary ---
Author Organization [employer] Address [address] [facility] 7t [place] [address] Care Team Providers Care Hospital Social Worker Name Role Phone Marian Crook MD Primary Care Provider + Reason for Referral * Cardiac Stress Testing (Routine) - Authorized Specialty Diagnoses / Procedures Referred By Contac t Referred To Contact Cardiology Diagnoses Dizziness Procedures Tilt table Marian Crook MD [address] [place] [address] Phone: tel: fax: [address] Phone: tel: fax: Referral ID Status Reason Start Date Expiration Date V isits Requested Visits Authorized [id number] Authorized 07/02/2024 07/02/2025 1 1 Reason for Visit * Reason Comments Follow-up Encounter Details Date Type Department Care Team (Late st Contact Info) Description 07/02/2024 11:45 AM EDT Office Visit [facility] MEDICINE [address] [place], [place] [phone] Marian Crook MD [address] [place], [place] [phone] Polyuria (Primary Dx); Dizziness; Chronic low back [...] related to patient's menorrhagia(she is followed by MANAGER MEETING) + significant diuresis. Patient will have increase [...] related to patient's menorrhagia(she is followed by MANAGER MEETING) + significant diuresis. Patient will have increase [...] Description 10/12/2024 3:30 PM EDT Office Visit [facility] MEDICINE [address] [place] [address] Marian Crook MD [address] [place], [place] [phone] Scheduled Orders Name Type Priority Associated Diagnoses [...] documented as of this encounter Care Teams Hospital Social Worker Relationship Specialty Start Date End Date Marian Crook MD [address] [place] [address] PCP - General Internal Medicine 09/12/23 documented as of this encounter
--- OUTSIDE RECORDS SUMMARY | 2024-07-07 18:02 | XMS_ITS | Encounter Summary ---
Author Organization [facility] [facility] Address [address] [place] [address] 7 [place] [address] Care Team Providers Care Stock Associate Name Role Phone [facility] Primary Care Provider [phone] Marian Crook MD Primary Care Provider + Encounter Details Date Type Department Care Team (Late st Contact Info) Description 04/03/2023 Abstract [facility] MEDICINE [address] [place] [address] [phone] [facility] [address] [place] [address] Social History Tobacco Use Types Packs/Day Years [...] Description 10/12/2024 3:30 PM EDT Office Visit [facility] MEDICINE [address] [place] [address] [phone] Marian Crook MD [address] [place], [place] [phone] documented as of this encounter Visit Diagnoses Not on filedocumented in this encounter Additional Health Concerns Assessment Noted Time PHQ-9 Depression Total Score: 16 023 3:25 PM EDT documented as of this encounter Care Teams Stock Associate Relationship Specialty Start Date End Date Miladys RACQUEL Brito [address] [place] [address] PCP - General Family Medicine 11/14/21 09/11/23 Marian Crook MD [address] [place] [address] PCP - General Internal Medicine 09/12/23 documented as of this encounter
--- OUTSIDE RECORDS SUMMARY | 2024-07-07 18:02 | XMS_ITS | Encounter Summary ---
Author Organization [employer] Address [address] [facility] 7t [place] [address] Care Team Providers Care Legal Secretary Receptionist Name Role Phone Marian Crook MD Primary Care Provider + Reason for Visit * Reason Onset Date Comments Med Refill 03/25/2024 Encounter Details Date Type Department Care Team (Late st Contact Info) Description 03/25/2024 Refill [facility] MEDICINE [address] [place] [address] Claritza Leonard DO [address] [place] [address] Social History Tobacco Use Types Packs/Day Years [...] Description 10/12/2024 3:30 PM EDT Office Visit [facility] MEDICINE [address] [place] [address] Marian Crook MD [address] [place] [address] documented as of this encounter Visit Diagnoses Not on filedocumented in this encounter Additional Health Concerns Assessment Noted Time PHQ-9 Depression Total Score: 22 024 2:02 PM EDT documented as of this encounter Care Teams Legal Secretary Receptionist Relationship Specialty Start Date End Date Marian Crook MD [address] [place] [address] PCP - General Internal Medicine 09/12/23 documented as of this encounter
--- OUTSIDE RECORDS SUMMARY | 2024-07-07 18:02 | XMS_ITS | Encounter Summary ---
Author Organization [employer] Address [address] [facility] 7t [place] [address] Care Team Providers Care Oracle E Business Developer Name Role Phone Marian Crook MD Primary Care Provider + Reason for Visit * Reason Comments Med Change Request Encounter Details Date Type Department Care Team ([facility] st Contact Info) Description 06/17/2024 Refill [facility] MEDICINE [address] [place], [place] [phone] Marian Crook MD [address] [place] [address] Social History Tobacco Use Types Packs/Day Years [...] Description 10/12/2024 3:30 PM EDT Office Visit [facility] MEDICINE [address] [place] [address] Marian Crook MD [address] [place] [address] documented as of this encounter Visit Diagnoses Not on filedocumented in this encounter Additional Health Concerns Assessment Noted Time PHQ-9 Depression Total Score: 22 024 2:02 PM EDT documented as of this encounter Care Teams [employer] E Business Developer Relationship Specialty Start Date End Date Marian Crook MD [address] [place] [address] PCP - General Internal Medicine 09/12/23 documented as of this encounter
--- OUTSIDE RECORDS SUMMARY | 2024-07-07 18:02 | XMS_ITS | Encounter Summary ---
Author Organization [employer] Address [address] [facility] 7t [place] [address] Care Team Providers Care Consulting Project Director Name Role Phone Marian Crook MD Primary Care Provider + Reason for Visit * Reason Onset Date Comments Med Refill 03/25/2024 Encounter Details Date Type Department Care Team ([facility] st Contact Info) Description 03/25/2024 Refill [facility] MEDICINE [address] [place] [address] Marian Crook MD [address] [place] [address] Moderate persistent asthma without complication Social History [...] Description 10/12/2024 3:30 PM EDT Office Visit [facility] MEDICINE [address] [place] [address] Marian Crook MD [address] [place] [address] documented as of this encounter Visit Diagnoses Diagnosis Moderate persistent asthma without complication documented in this encounter Additional Health Concerns Assessment Noted Time PHQ-9 Depression Total Score: 22 024 2:02 PM EDT documented as of this encounter Care Teams Consulting Project Director Relationship Specialty Start Date End Date Marian Crook MD [address] [place] [address] PCP - General Internal Medicine 09/12/23 documented as of this encounter
--- OUTSIDE RECORDS SUMMARY | 2024-07-07 18:02 | XMS_ITS | Encounter Summary ---
Author Organization [employer] Address [address] [place] [address] 7t [place] [address] Care Team Providers Care Telephone Plant Power Operator Name Role Phone [facility] Primary Care Provider [phone] Marian Crook MD Primary Care Provider + Reason for Visit * Reason Onset Date Comments Nurse Triage 11/18/2022 Encounter Details Date Type Department Care Team (Late st Contact Info) Description 11/18/2022 Telephone [facility] MEDICINE [address] [place] [address] [facility] [address] [place] [address] Nurse Triage Social History Tobacco Use Types [...] Description 10/12/2024 3:30 PM EDT Office Visit [facility] MEDICINE [address] [place] [address] Marian Crook MD [address] [place] [address] documented as of this encounter Visit Diagnoses Not on filedocumented in this encounter Additional Health Concerns Assessment Noted Time PHQ-9 Depression Total Score: 16 06/18/ 023 3:25 PM EDT documented as of this encounter Care Teams Telephone Plant Power Operator Relationship Specialty Start Date End Date Alisha Hook FNP [address] [place] [address] PCP - General Family Medicine 11/14/21 09/11/23 Marian Crook MD [address] [place] [address] PCP - General Internal Medicine 09/12/23 documented as of this encounter
--- OUTSIDE RECORDS SUMMARY | 2024-07-07 18:03 | XMS_ITS | Encounter Summary ---
Author Organization [employer] Address [address] [facility] 7t [place] [address] Care Team Providers Care Tube Handler Name Role Phone Marian Crook MD Primary Care Provider + Reason for Visit * Reason Comments Med Refill Encounter Details Date Type Department Care Team ([facility] st Contact Info) Description 06/05/2024 Refill [facility] MEDICINE [address] [place], [place] [phone] Marian Crook MD [address] [place], [place] [phone] Social History Tobacco Use Types Packs/Day Years [...] Description 10/12/2024 3:30 PM EDT Office Visit [facility] MEDICINE [address] [place] [address] Marian Crook MD [address] [place] [address] documented as of this encounter Visit Diagnoses Not on filedocumented in this encounter Additional Health Concerns Assessment Noted Time PHQ-9 Depression Total Score: 22 024 2:02 PM EDT documented as of this encounter Care Teams Tube Handler Relationship Specialty Start Date End Date Marian Crook MD [address] [place] [address] PCP - General Internal Medicine 09/12/23 documented as of this encounter
--- OUTSIDE RECORDS SUMMARY | 2024-07-07 18:03 | XMS_ITS | Encounter Summary ---
Author Organization [employer] Address [address] [facility] 7t [place] [address] Care Team Providers Care Steam Tender Name Role Phone Marian Crook MD Primary Care Provider + Reason for Visit * Reason Onset Date Comments Med Refill 06/02/2024 Encounter Details Date Type Department Care Team ([facility] st Contact Info) Description 06/02/2024 Telephone [facility] MEDICINE [address] [place] [address] Marian Crook MD [address] [place] [address] Med Refill Social History Tobacco Use Types [...] Description 10/12/2024 3:30 PM EDT Office Visit [facility] MEDICINE [address] [place] [address] Marian Crook MD [address] [place] [address] documented as of this encounter Visit Diagnoses Diagnosis Moderate persistent asthma without complication documented in this encounter Additional Health Concerns Assessment Noted Time PHQ-9 Depression Total Score: 22 024 2:02 PM EDT documented as of this encounter Care Teams Steam Tender Relationship Specialty Start Date End Date Marian Crook MD [address] [place] [address] [phone] PCP - General Internal Medicine 09/12/23 documented as of this encounter
== END 2024-07-07 14:42 | disposition home or self-care (01) ==
LOC: HO.LNP 14:41
PROVIDERS: PCP Internal Medicine; Visit Provider Obstetrics & Gynecology
DX: N93.9 Abnormal uterine and vaginal bleeding, unspecified (principal)
CPT/HCPCS: 58100; 88305

== ENCOUNTER 2024-07-07 14:41 | Outpatient (AMB) | payer OTHER, SELFPAY ==
--- NOTE | 2024-07-07 14:45 | MHC.OFFVIS ---
Vital Signs 07/07/24 14:46 Height 5 ft 3 in Weight 170 lb BMI 30.1 Intake Visit Reasons: EMB results Allergies No Known Allergies [No Known Allergies*] Allergy (Verified 06/25/24 13:57) HPI Comments Details: The patient is presenting after endometrial biopsy. The patient has no complaints, no vaginal bleeding, no feverishness chills or abdominal pain. The endometrial biopsy pathology report showed the following: Benign endocervical glandular and squamous epithelium with rare endometrium; insufficient for endometrial evaluation. [facility] Medical History delivery delivered Depression Anal fissure Hemorrhoids Chronic RLQ pain Polyuria Dizziness FILIBERTO (obstructive sleep apnea) Moderate persistent asthma in adult without complication Chronic low back pain Iron deficiency Arthritis History of asthma Surgical History Hx of colonoscopy History of esophagogastroduodenoscopy (EGD) S/P laparoscopic sleeve gastrectomy H/O abdominoplasty Family History Mother History of hypertension Arthritis Glaucoma Father Heart problem History of hypertension Brother Heart problem History of hypertension Sister History of hypertension Brother No problems noted. Brother No problems noted. Brother No problems noted. Brother No problems noted. Sister Ovarian cancer Sister No problems noted. Sister No problems noted. Social History Household Members: Spouse and Children Housing: House Are you a primary child care nurse to a significant other at home: No Do you presently have visiting nurse or other home services: No Alcohol intake: current Alcohol intake frequency: holidays/special occasions only Patient Tobacco Use Status: Never used Tobacco service: No Current occupational status: employed Female Reproductive History Menstrual Age of Menarche: 14 Review of Systems Const All systems reviewed & are unremarkable except as noted in HPI and below Reports as per HPI and Reports no additional complaints GI Reports no additional complaints Reports no additional complaints Physical Exam Vital Signs: BMI result Body Mass Index 30.1 Office Procedures Endometrial Biopsy Details: The patient was counseled regarding the indication and benefits of endometrial sampling to rule out endometrial pathology including not limited to endometrial hyperplasia or endometrial cancer and others; The alternatives (Either do nothing vs. hysteroscopy D&C) & the risks were discussed with the patient including but not limited: pain, uterine perforation, bleeding, infection, possible injury to bladder, bowel, ureter, possible need for blood transfusion with all its possible risks. The patient verbalized understanding all questions answered and signed consent. Urine test done in the office was negative The patient was placed into the dorsal lithotomy position; a speculum was inserted in the vagina. Using aseptic technique for the procedure, the cervix was cleansed with Betadine. The anterior lip of the cervix was grasped with a single tooth tenaculum. The uterus was sounded to 7 cm with a 4 mm Pipelle was used. Tissues samples were obtained and placed in formalin, in a patient labeled container and sent to the pathology department. At the end of the procedure, there was minimal bleeding noted The patient tolerated the procedure well and was discharged in good condition with the following instructions: Nothing in the vagina until the bleeding stops. No sex until the bleeding stops, to call if any of the following occurs: fever (>100.4), flu-like symptoms, abdominal pain, heavy bleeding, four smelling vaginal discharge. The patient was instructed to schedule a Follow up appointment in 2 weeks to discuss pathology results of the biopsy and treatment options. This note was generated with a voice recognition program. Some errors may have been overlooked during the review of this note. Sometimes these errors may affect the content or meaning of a given sentence. [id number] Biopsy Assessment & Plan Assessment & Plan (1) Abnormal uterine bleeding (AUB): Code(s): N93.9 - Abnormal uterine and vaginal bleeding, unspecified Category: Medical Plan: Discussed with the patient the results of the pathology showing insufficient endometrium. Recommended to the patient that the next step is an endometrial sampling via hysteroscopy D&C possible polypectomy versus endometrial biopsy to r/o endometrial pathology including hyperplasia or cancer. All the pros and cons risks and benefits of each approach were discussed with the patient, endometrial biopsy being less invasive, office procedure with less sensitivity and inability diagnose a polyp and removal versus hysteroscopy done under anesthesia more invasive more sensitive to endometrial cancer and possibility of diagnosing and endometrial polyp with the possibility of polypectomy. All questions were answered pt verbalized understanding and decided to proceed with endometrial biopsy. EMB done, see procedure note Orders: Orders AMB Endometrial Biopsy Today N93.9 - Abnormal uterine and vaginal bleeding, unspecified Coding Level of Care Code Procedure Only Diagnoses Abnormal uterine bleeding (AUB) N93.9 CPT Codes Endometrial Biopsy - CPT: 01759-Dbbmfwmvxlm Biopsy ([id number])
[2024-07-07 14:46] VITALS: BMI 30.1
--- OUTSIDE RECORDS SUMMARY | 2024-07-07 17:27 | XMS_ITS | Encounter Summary ---
Author Organization [employer] Address [address] [facility] [address] [facility] [address] 7[address] [place] [address] Care Team Providers Care Field Attendant Name Role Phone Marian Crook MD Primary Care Provider + Encounter Details Date Type Department Care Team (Latest Contact Info) Description 07/02/2024 Travel Social History Tobacco Use Types Packs/Day Years [...] Care Team (Late st Contact Info) Description 10/12/2024 3:30 PM EDT Office Visit [facility] [address] [place] [address] Marian Crook MD [address] [place] [address] documented as of this encounter Visit Diagnoses Not on filedocumented in this encounter Additional Health Concerns Assessment Noted Time PHQ-9 Depression Total Score: 22 024 2:02 PM EDT documented as of this encounter Care Teams Field Attendant Relationship Specialty Start Date End Date Marian Crook MD [address] [place] [address] PCP - General Internal Medicine 09/12/23 documented as of this encounter
--- OUTSIDE RECORDS SUMMARY | 2024-07-07 17:27 | XMS_ITS | Clinical Summary ---
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 35 g 1 3 Active Omeprazole 20 MG tablet delayed-releaseIn dications:Pain of right hip Take 20 mg by mouth in the morning for 14 days. 14 tablet 3 Active nitroglycerin (Rectiv) 0.4 % (w/w) rectal ointmentIndicatio ns:Anal fissure Insert 1 inch (1 Application.) into the rectum every 12 (twelve) hours. 30 g 4 Active venlafaxine XR (Effexor XR) 37.5 MG 24 hr capsuleIndication s:Hot flashes Take 1 capsule (37.5 mg) by mouth Once per day. Do not crush or chew. 30 capsule 11 4 01/12/20 25 Active acetaminophen (Tylenol 8 Hour) 650 MG ER tablet Take 1 tablet (650 mg) by mouth every 8 (eight) hours if needed for mild pain. Do not crush, chew, or split. 50 tablet 2 4 02/26/20 25 Active albuterol 108 (90 Base) MCG/ACT inhalerIndication s:Moderate persistent asthma without complication Inhale 2 puffs every 6 (six) hours if needed for shortness of breath or wheezing. 18 g 3 5 Active Diclofenac Sodium 1 % gelIndications:Ch ronic pain of both knees Apply 2 g topically if needed in the morning, at noon, in the evening, and at bedtime (pain). 150 g 2 5 Active meloxicam (Mobic) 7.5 MG tablet TAKE 1 TABLET BY MOUTH EVERY DAY 30 tablet 5 Active lidocaine (Lidoderm) 5 % patch APPLY 1 PATCH TOPICALLY ONCE PER DAY. REMOVE & DISCARD PATCH WITHIN 12 HOURS OR DIRECTED BY MD. 30 patch 2 5 Active baclofen (Lioresal) 10 MG tablet TAKE 1/2 TO 1 TABLET (5-10 MG) BY MOUTH 2 TIMES DAILY. 30 tablet 1 5 Active montelukast (Singulair) 10 MG tablet TAKE 1 TABLET BY MOUTH EVERY MORNING 90 tablet 1 5 Active cetirizine (ZyrTEC) 10 MG tablet TAKE 1 TABLET BY MOUTH EVERY DAY 90 tablet 5 Active Active Problems Problem Noted Date Diagnosed Date Bright red blood per rectum 12/23/2023 Assessment & Plan (01/12/2024 2:40 PM EDT): Resolved, it seems to be related to anal fissure. No evidence of anemia. FU with GI Generalized abdominal pain 12/23/2023 Hemorrhoids 12/23/2023 Anal fissure 12/23/2023 Polyuria 11/13/2023 Assessment & Plan (07/02/2024 4:04 PM EDT): Reminded her to get 24-hour urine to quantify volume and check for SIADH Assessment & Plan (11/13/2023 3:01 PM EDT): [...] previous kit. Chronic lower back pain 09/12/2023 Overview (07/02/2024): MRI L-spine on 02/2024 showed lumbar canal stenosis + foraminal stenosis + DJD of L-spine Assessment & Plan (07/02/2024 4:04 PM EDT): Significantly improving on p.o. medications Reconsult as needed to pain clinic Assessment & Plan (09/12/2023 5:24 PM EDT): pt w chronic lower back pain ,and right sciatica symptoms Here normal neuro examination -tylenol prn for mild pain -meloxicam PRN for mod pain -lidoderm patches -PT referred today -lumbar XR referred today for chronicity of symptoms Dizziness 09/12/2023 Assessment & Plan (07/02/2024 4:02 PM EDT): So far has been within normal limits except hemoglobin that has dropped 2 points within 6 months. This could be related to patient's menorrhagia(she is followed by [facility]) + significant diuresis. Patient will have increase water intake, 1 or 2 salty snacks per day and check BP daily in the morning. Reminded her to get a 24-hour urine to quantify volume, rule out SIADH. Order tilt table test Assessment & Plan (09/12/2023 5:24 PM EDT): [...] for this letter, she has appt with [facility] next week. I told her to reach out to legal collector to help her write a letter so that housing give her some more time to get the letter from provider. She will res tart Effexor for anxiety and fu with me in 6m Encounters Date Type Department Care Team Description 07/02/2024 11:45 AM EDT Office Visit [facility] MED[facility] [address] [place] [address] Marian Crook MD Polyuria (Primary Dx); Dizziness; Chronic low back pain without sciatica, unspecified back pain laterality 07/02/2024 Travel 06/30/2024 Telephone [facility] MED[facility]INE [address] [place] [phone] Marian Crook MD Chart prep 06/25/2024 Orders Only GENERIC EXTERNAL DATA DEPARTMENT Provider, Generic External Data 06/24/2024 Orders Only [facility] [address] [place] [phone] Marian Crook MD Bilateral primary osteoarthritis of knee (Primary Dx) 06/23/2024 Patient Outreach [address] [address] Marian Crook MD Pre-visit Planning (SDOH screening negative and tobacco screening negative) 06/18/2024 Orders Only GENERIC EXTERNAL DATA DEPARTMENT Provider, Generic External Data 06/17/2024 Refill [facility] [address] [place] [address] Marian Crook MD 06/05/2024 Refill [facility] [address] [place] [address] Marian Crook MD 06/05/2024 Refill [facility] [address] [place] [address] Claritza Leonard DO 06/04/2024 Population Health Risk Score [facility] Department [address] [phone] Provider, Population Health Generic 06/02/2024 Telephone [facility]INE [address] [place] [address] Marian Crook MD Med Refill 06/02/2024 Telephone [facility] [address] [place] [address] Marian Crook MD Referral 06/02/2024 Refill [facility] [address] [place] [address] Marian Crook MD 05/28/2024 3:15 PM EST Office Visit [address] [address] Tata Fink NP Chronic pain of both knees (Primary Dx) 05/26/2024 Telephone [facility]INE [address] [place] [phone] Marian Crook MD Nurse Triage 05/13/2024 Refill [facility] [address] [place] [address] Marian Crook MD Moderate persistent asthma without complication 05/07/2024 Refill [facility] [address] [place] [address] Marian Crook MD 05/05/2024 Orders Only GENERIC EXTERNAL DATA DEPARTMENT Provider, Generic External Data 04/29/2024 Orders Only [facility] [address] [place] [address] Claritza Leonard DO Bilateral renal cysts (Primary Dx); Uterine leiomyoma, unspecified location; Excessive bleeding in premenopausal period 04/29/[address] [address] Marian Crook MD Nurse Triage 04/27/2024 Orders Only GENERIC EXTERNAL DATA DEPARTMENT Provider, Generic External Data 04/26/2024 Orders Only GENERIC EXTERNAL DATA DEPARTMENT Provider, Generic External Data 04/26/[address] [address] Lina Yarbrough, RN Results 04/23/2024 Telephone [facility] [address] [place] [address] Marian Crook MD June04/13/2024 Refill [facility] [address] [place] [address] Marian Crook MD 04/09/2024 Orders Only [facility] [address] [place] [address] Claritza Leonard, Abnormal MRI, lumbar spine (Primary Dx) from Last 3 Months Immunizations Name Administration [...] Sign Reading Time Taken Comments Blood Pressure 108/67 07/02/2024 12:43 PM EDT Pulse 82 07/02/2024 11:40 AM EDT Temperature 36.1 ??C (97 ??F) 07/02/2024 11:40 AM EDT Respiratory Rate 22 05/28/2024 3:18 PM EST Oxygen Saturation 100% 07/02/2024 11:40 AM EDT Inhaled Oxygen Concentration - - Weight 79.8 kg (176 lb) 07/02/2024 11:40 AM EDT Height 160 cm (5' 3 ) 07/02/2024 11:40 AM EDT Body Mass Index 31.18 07/02/2024 11:40 AM EDT Plan of Treatment Upcoming Encounters Date Type Department Care Team (Late st Contact Info) Description 10/12/2024 3:30 PM EDT Office Visit [facility] MEDICINE [address] [place] [address] Marian Crook MD [address] [place] [address] Health Maintenance Due Date Last Done Comments CT Colonography 1975 Colonoscopy 1975 FIT 1975 FOBT 1975 Sigmoidoscopy 1975 Family Planning (PISQ) 1990 Hepatitis B Vaccines (2 of 3 - 19+ 3-dose series) 11/08/2013 10/11/2013, 12/02/2008, 10/11/2008 COVID-19 Vaccine ( season) 2023 04/25/2021, 05/14/2020, 04/23/2020 Influenza Vaccine (#1) 2023 , 12/20/2018, 05/15/2017, Additional history exists Depression Monitoring 07/12/2024 01/12/2024, 024 Mammogram 12/04/2024 12/05/2023, 09/21, 09/29/2017 Alcohol/Substance Use Screening 01/11/2025 01/12/2024 Depression Screening 01/11/2025 01/12/2024, 01/12/20 24 Zoster Vaccines (1 of 2) 2025 SDOH Screening 06/23/2025 06/23/2024 Tobacco Screening 07/02/2025 07/02/2024 Colorectal Cancer Screening 02/01/2027 FIT DNA/Cologuard 02/01/2027 [...] Procedure Name Priority Date/Time Associated Diagnosis Comments POCT URINALYSIS DIPSTICK Routine 07/02/2024 12:42 PM EDT Polyuria HEMATOXYLIN AND EOSIN STAIN Routine 06/25/2024 3:02 PM EDT HIGH SENSITIVITY TROPONIN I Routine 06/18/2024 11:08 AM EDT XR CHEST 1 VIEW Routine 06/18/2024 9:10 AM EDT US VENOUS DUPLEX LE LT Routine 9:09 AM EDT D DIMER HIGH SENSITIVITY Routine 06/18/2024 8:29 AM EDT HIGH SENSITIVITY TROPONIN I Routine 06/18/2024 8:29 AM EDT MAGNESIUM Routine 06/18/2024 8:29 AM EDT COMPREHENSIVE METABOLIC PANEL Routine 06/18/2024 8:29 AM EDT PROTHROMBIN TIME-INR Routine 06/18/2024 8:29 AM EDT CBC WITH AUTO DIFFERENTIAL Routine 06/18/2024 8:29 AM EDT XR KNEE 4+ VIEWS LEFT Routine 05/31/2024 2:29 PM EDT Chronic pain of both knees XR KNEE 4+ VIEWS RIGHT Routine 03/10/202 5 2:29 PM EDT Chronic pain of both [...] 3:25 PM EST Abnormal MRI, lumbar spine HEPATITIS C ANTIBODY Routine 03/27/2024 10:19 AM EST HIV 1/2 ANTIGEN/ANTIBODY, FOURTH GENERATION W/RFL Routine 03/27/2024 10:19 AM EST LAB COLOGUARD?? COLON CANCER SCREEN Routine 02/02/2024 9:15 AM EST Screening for colorectal cancer BI MAMMOGRAM SCREENING TOMOSYNTHESIS BILATERAL Routine 12/05/2023 3:30 PM EDT Screening mammogram for breast cancer from Last 3 Months or Most Recently Relevant to Health Maintenance Results * POCT Urinalysis (07/02/2024 12:42 PM EDT) Color, UA Yellow Clarity, UA Clear Glucose, UA Negative Bilirubin, UA Negative Ketones, UA Negative Spec Grav, UA 1.020 Blood, UA Negative Negative, None Detected pH, UA 5.5 Protein, UA Negative Urobilinogen, UA 0.2 Leukocytes, UA Negative Negative, Rare, Trace Nitrite, UA Negative Negative, None Detected Appearance, UA clear QC Media Lot # [id number] Lot# Expiration Date 860 Urine 07/02/2024 12:4 2 PM EDT Marian Crook MD POINT OF CARE TEST ENTER /EDIT ORDERABLES Final Result * Hematoxylin and Eosin Stain (06/25/2024 3:02 PM EDT) 06/25/2024 3:02 PM EDT 06/25/2024 3:30 PM EDT Narrative [facility] - 06/28/2024 12:55 PM EDT ----- ------- Name: Corina Nielsen ?Age/Sex: 49/F ? : 1975 Unit#: [id number] ?? Attend Dr: Pj Posadas MD ?Re06/25/24 ?Status: DEP REF ? Location: HO.LNP ?Disch: ? ----- ------- SPEC : [id number] ? RECD: 06/25/24-1529 ? STATUS: ??SOUT ? REQ NUM: [id number] ? LAURA: 06/25/24-150 ? SUBM DR: Pj Posadas MD ? ENTERED: ??06/25/24-1530 ?SP TYPE: Surgical ? OTHR DR: Marian Crook MD ? ORDERED: ??HE Stain/2, Gross Micro L4 ? Diagnosis ?? Endometrium, biopsy: ??Benign endocervical glandular and squamous epithelium with rare ?? endometrium; insufficient for endometrial evaluation. ?Clinical History AUB ?Microscopic Description Microscopic sections reviewed. ? Material Received ?? EMB ? Gross Description Received in formalin labeled ?EMB? is an aggregate composed predominantly of mucus and clotted blood measuring 1.5 x 1.0 x 0.2 cm which is wrapped in lens paper and entirely submitted for microscopic examination, multiple pieces in cassette A. ??([facility]) Copies To: ?? Marian Crook MD ?? [facility] ?? [address] ?? [place] [address] ?? [phone] ?? Pj Posadas MD ?? [facility] ?? [address] ?? [place] [address] ?? [phone] ----- ------- Signed (signature on file) Tracie Montejo 06/28/24 1255 ? ----- ------- ? END OF REPORT ? us Generic External Data Provider LAB BLOOD ORDERAB LES Final Result Performing Organization Address [facility] de Phone Number [facility] [address] [place] [address] [phone] * High Sensitivity Troponin I (06/18/2024 11:08 AM EDT) Only the most recent of2 resultswithin the time period is included. TROPONIN I HIGH SENSITIVITY <2.7 <3.5 - 17.0 ng/L [facility] Comment:The Thomason high sens itivity Troponin-I results should beused in conjunction with other diagnostic information suchas ECG, clinical observations and information, and patientsymptoms to aid in the diagnosis of OH. 06/18/2024 11:0 8 AM EDT 06/18/2024 11:15 AM EDT us Generic External Data Provider LAB BLOOD ORDERAB LES Final Result Performing Organization Address [facility] de Phone Number [facility] [address] [place] [address] [phone] * XR Chest 1 View (06/18/2024 9:10 AM EDT) Anatomical Region Laterality Modality Chest Radiographic Irais ging 06/18/2024 9:10 AM EDT Narrative 06/18/2024 9:37 AM EDT ? [facility] ?[address] ?[place] [address] ?XRay Report ? Signed ? Patient: Abrams James,Corina ?MR#: [id number] ?? [id number] ? : 1975 ?Acct:[id number] ? Age/Sex: 49 / F ?ADM Date: 03/28/25 ? Loc: HO.ED ? Attending Dr: ? Ordering Physician: Lisa Nguyen DO ?? Date of Service: 06/18/24 ?? Procedure(s): XR chest 1V ?? Accession Number(s): [id number] ? cc: Marian Crook MD; Lisa Nguyen [...] ??Dorian Graham MD ??06/18/2024 09:34 AM EDT ? Dictated By: ?Dorian Graham MD ? Signed By: ?<Electronically signed by Dorian Graham MD in OV> ?06/18/24 0934 ? DD/ 0910 ? TD/TT: 06/18/24924 ? Back Tender Insulation Board: ? Procedure Note Donotannater, Image - 06/18/2024 [place] [address] XRay Report Signed Patient: Yarelis Nielsen#: [id number] : 1975Acct:[id number] Age/Sex: 49 / FADM Date: 06/18/24 Loc: HO.ED Attending Dr: Ordering Physician: Lisa Nguyen DO Date of Service: 06/18/24 Procedure(s): XR chest 1V Accession Number(s): [id number] cc: Marian Crook MD; Lisa Nguyen DO [...] in OV> 06/18/24933 DD/ 9 TD/TT: 06/18/24924 Back Tender Insulation Board: [facility] External Provider IMG XR PROCEDURES Final Result * US VENOUS DUPLEX LE LT (06/18/2024 9:09 AM EDT) Anatomical Region Laterality Modality Abdomen Ultrasound 06/18/2024 9:09 AM EDT Narrative 06/18/2024 9:20 AM EDT ? [facility] ?[address] ?[place] [address] ? Ultrasound Report ? Signed ? Patient: Corina Nielsen ?MR#: [id number] ?? [id number] ? : 1975 ?Acct:[id number] ? Age/Sex: 49 / F ?ADM Date: 06/18/24 ? Loc: HO.ED ? Attending Dr: ? Ordering Physician: Lisa Nguyen DO ?? Date of Service: 06/18/24 ?? Procedure(s): US venous duplex LE LT ?? Accession Number(s): [id number] ? cc: Marian Crook MD; Lisa Nguyen [...] Guerra MD ??06/18/2024 09:18 AM ?? EDT RP ? Dictated By: ?Valentino Cotter MD ? Signed By: ?<Electronically signed by Valentino Jones MD in OV> ? 06/18/24917 ? DD/ 8 ? TD/TT: 03/28/25 0914 ? Back Tender Insulation Board: ? Procedure Note Donotuseinterpreter, Image - 06/18/[address] [address] Ultrasound Report Signed Patient: Yarelis Nielsen#: [id number] : 1975Acct:[id number] Age/Sex: 49 / FADM Date: 06/18/24 Loc: HO.ED Attending Dr: Ordering Physician: Lisa Nguyen DO Date of Service: 06/18/24 Procedure(s): US venous duplex LE LT Accession Number(s): [id number] cc: Marian Crook MD; Lisa Nguyen DO [...] Jones MDin OV> 06/18/24917 DD/ 8 TD/TT: 06/18/24913 Back Tender Insulation Board: us [facility] External Provider IMG US PROCEDURES Final Result * D Dimer High Sensitivity (06/18/2024 8:29 AM EDT) D Dimer High Sensitivity <150 NG/ML [facility] Comment:D-DIMER HS REFERENCE RANGENote: Our assay [...] LES Final Result [facility] [address] [place] [address] [phone] * (ABNORMAL) CBC auto differential (06/18/2024 8:29 AM EDT) Only the most recent of2 resultswithin the time period is included. White Blood Count 6.1 4.8 - 10.8 X10*3/uL [facility] Red Blood Count 4.36 4.20 - 5.50 X10*6/uL [facility] Hemoglobin 13.5 12.0 - 16.0 g/dl [facility] Hematocrit 40.2 37.0 - 47.0 % [facility] Mean Corpuscular Volume 92.2 80.0 - 98.0 fL [facility] Mean Corpuscular Hemoglobin 31.0 27.0 - 33.0 pg [facility] Mean Corpuscular HGB Conc 33.6 31.0 - 35.0 g/dl [facility] Red Cell Distribution Width 13.5 11.0 - 16.0 % [facility] Platelet Count 192 160 - 400 X10*3/uL [facility] Mean Platelet Volume 10.5 9.4 - 12.3 fL [facility] Neutrophils Percent Auto 76.0(H) 45 - 73 % [facility] Imm Gran Pct Auto 0.3 0.0 - 0.4 % [facility] Lymphocytes Percent Auto 16.3(L) 20 - 40 % [facility] Monocytes Percent Auto 6.2 2 - 11 % [facility] Eosinophils Percent Auto 0.7 0 - 4 % [facility] Basophils Percent Auto 0.5 0 - 2 % [facility] NRBC Pct Auto 0.0 0.0 - 0.2 /100WBC [facility] Neutrophils Absolute Auto 4.7 2.0 - 8.3 x10*3/uL [facility] Imm Gran Abs Auto 0.02 0.00 - 0.03 X10*3/uL [facility] Lymphocytes Absolute Auto 1.0(L) 1.2 - 4.9 X10*3/uL [facility] Monocytes Absolute Auto 0.4 0.1 - 1.2 X10*3/uL [facility] Eosinophils Absolute Auto 0.0 0.0 - 0.4 X10*3/uL [facility] Basophils Absolute Auto 0.0 0.0 - 0.2 X10*3/uL [facility] NRBC Abs Auto 0.000 0.0 - 0.012 X10*3/uL [facility] 06/18/2024 8:29 AM EDT 06/18/2024 8:32 AM EDT us Generic External Data Provider LAB BLOOD ORDERAB LES Final Result [facility] [address] [place] [phone] * Prothrombin Time-INR (06/18/2024 8:29 AM EDT) Only the most recent of2 resultswithin the time period is included. Prothrombin Time 12.3 10.9 - 12.4 SEC [facility] INTERNATIONAL NORM RATIO 1.1 0.9 - 1.1 [facility] [...] 8:29 AM EDT 06/18/2024 8:32 AM EDT Generic External Data Provider LAB BLOOD ORDERAB LES Final Result Performing Organization Address [facility] Co de Phone Number [facility] [address] [place] [phone] * Magnesium (06/18/2024 8:29 AM EDT) Only the most recent of2 resultswithin the time period is included. Pathologist [facility] Magnesium 1.9 1.6 - 2.6 mg/dL [facility] 06/18/2024 8:29 AM EDT 06/18/2024 8:32 AM EDT us Generic External Data Provider LAB BLOOD ORDERAB LES Final Result Performing Organization Address [facility] de Phone Number [facility] [address] [place] [phone] * (ABNORMAL) Comprehensive Metabolic Panel (06/18/2024 8:29 AM EDT) Only the most recent of2 resultswithin the time period is included. Sodium 138 135 - 145 mmol/L [facility] Potassium 3.9 3.3 - 5.1 mmol/L [facility] Chloride 112(H) 96 - 108 mmol/L [facility] Carbon Dioxide 21(L) 22 - 29 mmol/L [facility] Anion Gap 9(L) 12 - 20 [facility] Urea Nitrogen (BUN) 15 9 - 16 mg/dL [facility] Creatinine, Serum 0.70 0.5 - 1.4 mg/dL [facility] Creatinine Clr Calc Pharmacy 95.9 [facility] Comment:Provided height and weight: 160.02 cm,77.7 kg.eGFR (calculated from the MDRD study equation) and eCrCl(calculated from the Cockcroft-Gault equation) are based ondifferent parameters and may not yield comparable results.If eCrCl result is absurd, please check patient'sheight/weight. Estimated Glomerular Filt Rate >60 [facility] Comment:Chronic Kidney Disea se: Estimated GFR < 60 mL/min/1.38o6Ijzand Kidney Disease: Estimated GFR < 15 mL/min/1.73m2 Glucose 93 60 - 115 mg/dL [facility] Calcium 8.9 8.4 - 10.2 mg/dL [facility] Bilirubin, Total 0.5 0.0 - 1.0 mg/dL [facility] Aspartate Amino Transferase 21 5 - 31 U/L [facility] Alanine Aminotransferase 16 0 - 31 U/L [facility] Total Protein 7.0 6.5 - 8.0 g/dL [facility] Albumin Level 4.1 3.5 - 5.0 g/dL [facility] Alkaline Phosphatase 64 39 - 117 U/L [facility] 06/18/2024 8:29 AM EDT 06/18/2024 8:32 AM EDT us Generic External Data Provider LAB BLOOD ORDERAB LES Final Result [facility] [address] [place] [phone] * XR Knee 4+ Views Right (05/31/2024 2:29 PM EDT) Anatomical Region Laterality Modality Lower Extremities, Knee Right Radiogra phic Imaging 05/31/2024 2:29 PM EDT Narrative 05/31/2024 3:04 PM EDT ?[facility] ?[address] ?[place] [address] ?XRay Report ? Signed ? Patient: Abrams James,Corina ?MR#: [id number] ?? [id number] ? : 1975 ?Acct:[id number] ? Age/Sex: 49 / F ?ADM Date: 03/10/25 ? Loc: HO.HHCX ? Attending Dr: Tata Fink ? Ordering Physician: Tata Fink ?? Date of Service: 05/31/24 ?? Procedure(s): XR knee RT 4V ?? Accession Number(s): [id number] ? cc: Tata Fink ? EXAMINATION: ?? [...] DD/ 1429 ? TD/TT: 05/31/24 1455 ? Back Tender Insulation Board: ? Procedure Note Bonita, Image - 05/31/[address] [address] XRay Report Signed Patient: Yarelis Nielsen#: [id number] : 1975Acct:[id number] Age/Sex: 49 / FADM Date: 05/31/24 Loc: HO.HHCX Attending Dr: Tata Fink Ordering Physician: Tata Fink Date of Service: 05/31/24 Procedure(s): XR knee RT 4V Accession Number(s): [id number] cc: Tata Fink EXAMINATION: XR KNEE, RIGHT [...] 05/31/24 1501 DD/ 1429 TD/TT: 05/31/24 1455 Back Tender Insulation Board: us Tata Fink CLINICAL SOCIAL WORKER IMG XR PROCEDURES Final Result * XR Knee 4+ Views Left (05/31/2024 2:29 PM EDT) Anatomical Region Laterality Modality Lower Extremities, Knee Left Radiogra phic Imaging 05/31/2024 2:29 PM EDT Narrative 05/31/2024 3:05 PM EDT ?[facility] ?[address] ?[place] [address] ?XRay Report ? Signed ? Patient: Jose Alberto Cardonasus,Corina ?MR#: [id number] ?? [id number] ? : 1975 ?Acct:[id number] ? Age/Sex: 49 / F ?ADM Date: 05/31/24 ? Loc: HO.HHCX ? Attending : Tata Fink ? Ordering Physician: Tata Fink ?? Date of Service: 05/31/24 ?? Procedure(s): XR knee LT 4V ?? Accession Number(s): [id number] ? cc: Tata Fink ? EXAMINATION: ?? [...] by Valentino Jones MD in OV> ? /01/15 1502 ? DD/ 1429 ? TD/TT: 05/31/24 1455 ? Back Tender Insulation Board: ? Procedure Note Bonita, Image - 05/31/[address] [address] XRay Report Signed Patient: Yarelis Nielsen#: [id number] : 1975Acct:[id number] Age/Sex: 49 / FADM Date: 05/31/24 Loc: HO.HHCX Attending Dr: Tata Fink Ordering Physician: Tata Fink Date of Service: 05/31/24 Procedure(s): XR knee LT 4V Accession Number(s): [id number] cc: Tata Fink EXAMINATION: XR KNEE, LEFT [...] 05/31/24 1502 DD/ 1429 TD/TT: 05/31/24 1455 Back Tender Insulation Board: us Tata Fink CLINICAL SOCIAL WORKER IMG XR PROCEDURES Final Result * TSH with Reflex to Free T4 (05/05/2024 11:23 AM EST) TSH reflex Free T4 0.78 0.32 - 4.0 uIU/mL [facility] 05/05/2024 11:2 3 AM EST 05/05/2024 11:23 AM EST us Generic External Data Provider LAB BLOOD ORDERAB LES Final Result [facility] [address] [place] [address] [phone] * (ABNORMAL) CBC (05/05/2024 11:23 AM [...] LES Final Result [facility] [address] [place] [phone] * hCG, Total, Quantitative (05/05/2024 11:23 AM EST) HCG Quantitative <2 mIU/mL [facility] Comment:Weeks post LMP Appro ximate hCG(Last Menstrual Period) Range (mIU/ml)3 - 4 weeks 9 - 1304 - 5 weeks 75 - 2,6005 - 6 weeks 850 - 20,8006 - 7 weeks 4000 - 100,2007 - 12 weeks 11,500 - 289,39284 - 16 weeks 18,300 - 137,02323 - 29 weeks (2nd trimester) 1,400 - 53,40175 - 41 weeks (3rd trimester) 940 - [...] LES Final Result [facility] [address] [place] [phone] * LH (05/05/2024 11:23 AM EST) Lutenizing Hormone 7.8 mIU/mL [facility] Comment:Reference Range Foll icular Phase 1.9-12.5 Mid-Cycle Peak 8.7-76.3 Luteal Phase 0.5-16.9 Postmenopausal 10.0-54.7THIS TEST WAS PERFORMED AT:[facility] [place] [id number] OLIVAS MD 05/05/2024 11:2 3 AM EST 05/05/2024 11:23 AM EST Generic External Data Provider LAB BLOOD ORDERAB LES Final Result Performing Organization Address [facility] de Phone Number [facility] [address] [place] [phone] * FSH (05/05/2024 11:23 AM EST) [facility] Follicle Stimulating Hormone 14.4 mIU/mL [facility] Comment:Reference Range Foll icular Phase 2.5-10.2 Mid-cycle Peak 3.1-17.7 Luteal Phase 1.5- 9.1 Postmenopausal 23.0-116.3THIS TEST WAS PERFORMED AT:[facility] [address] [phone] OLIVAS MD 05/05/2024 11:2 3 AM EST 05/05/2024 11:23 AM EST Generic External Data Provider LAB BLOOD ORDERAB LES Final Result Performing Organization Address [facility] de Phone Number [facility] [address] [place] [phone] * Chlamydia/N. Gonorrhoeae RNA, TMA, Urogenitial (05/05/2024 11:19 AM EST) Pathologist [facility] CT PCR NOT DETECTED Not Detect. [facility] Comment:A not detected test result [...] psychologicalconsequences. NG PCR NOT DETECTED Not Detect. [facility] Comment:A not detected test result [...] AM EST 05/05/2024 11:56 AM EST Narrative [facility] - 05/06/2024 7:21 AM EST Vaginal us Generic External Data Provider LAB MICROBIOLOGY - GENERAL ORDERABLES Final Result Performing Organization Address City/State/[facility] Co de Phone Number [facility] [address] [place] [phone] * HPV DNA, Low/High Risk (05/05/2024 10:22 AM EST) HPV High Risk Negative Negative [facility] HPV Genotype 16 Negative Negative [facility] HPV Genotype 18 Negative Negative [facility] Comment:HPV testing performe d at [facility] (CLIA#[id number]), [address] [place] [address].Testing for HPV was performed using the [employer]system. The presence of HPV in the female [...] ORDERAB LES Final Result Performing Organization Address City/State/[facility] Co de Phone Number [facility] [address] [place] [phone] * Pap Smear (05/05/2024 10:22 AM EST) 05/05/2024 10:2 2 AM EST 05/06/2024 6:10 AM EST Narrative [facility] - 05/11/2024 9:16 AM EST ----- ------- Name: Corina Nielsen ?Age/Sex: 49/F ? : 1975 Unit#: [id number] ?? Attend Dr: Pj Posadas MD ?Re05/05/24 ?Status: DEP REF ? Location: HO.LNP ?Disch: ? ----- ------- SPEC : [id number] ? RECD: 05/06/24 ? STATUS: ??SOUT ? REQ NUM: [id number] ? LAURA: 05/05/242 ? SUBM DR: Pj [...] Copies To: ?? Marian Crook MD ?? [facility] ?? [address] ?? [place] [address] ?? [phone] ?? Pj Posadas MD ?? [facility] ?? [address] ?? [place] [address] ?? [phone] ----- ------- Signed (signature on file) SCARLET Hernandez (ASCP) 05/11/24 0916 ? ----- ------- ? END OF REPORT ? Generic External Data Provider LAB CYTOLOGY SHONA VIRAMONTES Final Result [facility] [address] [facility] [place] [phone] * (ABNORMAL) Urinalysis, Complete, with Reflex to Culture (04/27/2024 12:31 AM EST) Color Urine Yellow [facility] Appearance Urine Clear [facility] PH 5.5 5.0 - 9.0 [facility] Glucose Urine UA Negative Negative mg/dL [facility] Urine Blood Moderate (2+)(A) Negative [facility] Specific Harper - Urine 1.020 1.005 - 1.025 [facility] Urine Protein Negative Neg-Trace mg/dL [facility] Urine Ketones Negative Negative mg/dL [facility] Nitrite Urine Negative Negative [facility] Leukocyte Esterase Urine Negative Negative [facility] RBC Urine >20(A) 0 - 2 /HPF [facility] Urine WBC 0-5 0 - 5 /HPF [facility] Urine Squamous Epithelial Cell 0-2 0 - 2 /HPF [facility] Urine Bacteria None Seen None Seen [facility] Hyaline Casts, Urine 0-2 0 - 2 /LPF [facility] 04/27/2024 12:3 1 AM EST 04/27/2024 12:34 AM EST Narrative [facility] - 04/27/2024 12:42 AM EST Urine, Clean Catch us Generic External Data Provider LAB URINE ORDERAB LES Final Result Performing Organization Address City/[facility]/ZIP Co de Phone Number [facility] [address] [place] [phone] * Partial Thromboplastin Time, Activated (APTT) (04/26/2024 4:47 PM EST) Partial Thromboplastin Time 31.7 26.0 - 36.8 SEC [facility] Comment:For information rega rding the monitoring of direct thrombininhibitors, please refer to Pharmacy. 04/26/2024 4:47 PM EST 04/26/2024 4:50 PM EST us Generic External Data Provider LAB BLOOD ORDERAB LES Final Result Performing Organization Address [facility]/ZIP Co de Phone Number [facility] [address] [place] [phone] * US RENAL BI (04/21/2024 12:04 PM EST) Anatomical Region Laterality Modality Abdomen Ultrasound 04/21/2024 12:0 4 PM EST Narrative 04/21/2024 12:05 PM EST ? [facility] ?[address] ?[place] [address] ? Ultrasound Report ? Signed ? Patient: Abrams James,Corina ?MR#: [id number] ?? [id number] ? : 1975 ?Acct:[id number] ? Age/Sex: 49 / F ?ADM Date: 04/20/24 ? Loc: HO.US ? Attending Dr: Claritza Leonard DO ? Ordering Physician: Claritza Leonard DO ?? Date of Service: 04/20/24 ?? Procedure(s): US renal BI ?? Accession Number(s): [id number] ? cc: Claritza Leonard DO ? CLINICAL [...] DD/ 1204 ? TD/TT: 04/21/24 1204 ? Back Tender Insulation Board: ? Procedure Note Bonita, Image - 04/21/[address] [address] Ultrasound Report Signed Patient: Yarelis Nielsen#: [id number] : 1975Acct:[id number] Age/Sex: 49 / FADM Date: 04/20/24 Loc: HO.US Attending Dr: Claritza Leonard DO Ordering Physician: Claritza Leonard DO Date of Service: 04/20/24 Procedure(s): US renal BI Accession Number(s): [id number] cc: Claritza Leonard DO CLINICAL HISTORY: probable [...] 04/21/24 1204 DD/ 1204 TD/TT: 04/21/24 1204 Back Tender Insulation Board: us Claritza Leonard DO IMG US PROCEDURES Edited Res ult - Final * US Pelvis Transvaginal (04/20/2024 3:25 PM EST) Anatomical Region Laterality Modality Pelvis Ultrasound 04/20/2024 3:25 PM EST Narrative 04/21/2024 9:28 AM EST ? [facility] ?[address] ?[place] [address] ? Ultrasound Report ? Signed ? Patient: Abrams James,Corina ?MR#: [id number] ?? [id number] ? : 1975 ?Acct:[id number] ? Age/Sex: 49 / F ?ADM Date: 01/28/25 ? Loc: HO.US ? Attending Jacqueline Leonard DO ? Ordering Physician: Claritza Leonard DO ?? Date of Service: 04/20/24 ?? Procedure(s): US pelvic and transvaginal ?? Accession Number(s): [id number] ? cc: Claritza Leonard DO ? EXAMINATION: [...] DD/ 1525 ? TD/TT: 04/20/24 1555 ? Back Tender Insulation Board: ? Procedure Note Bonita, Image - 04/21/2024 [id number] [place] [address] Ultrasound Report Signed Patient: Yarelis Nielsen#: [id number] : 1975Acct:[id number] Age/Sex: 49 / FADM Date: 04/20/24 Loc: HO.US Attending Dr: Claritza Leonard DO Ordering Physician: Claritza Leonard DO Date of Service: 04/20/24 Procedure(s): US pelvic and transvaginal Accession Number(s): [id number] cc: Claritza Leonard DO EXAMINATION: US PELVIS [...] 04/21/24 0926 DD/ 1525 TD/TT: 04/20/24 1555 Back Tender Insulation Board: us Claritza Leonard DO IMG US PROCEDURES Edited Res ult - Final * Hepatitis C Ab (03/27/2024 10:19 AM EST) [facility] Hepatitis C Antibody Nonreactive Nonreactive [facility] Comment:Antibodies to HCV no t detected; does not exclude early acuteHCV infection. 03/27/2024 10:1 9 AM EST 03/27/2024 10:19 AM EST Generic External Data Provider LAB BLOOD ORDERAB LES Final Result Performing Organization Address [facility] Co de Phone Number [facility] [address] [place] [phone] * HIV-1/2 Antigen and Antibodies, Fourth Generation, with Reflexes (03/27/2024 10:19 AM EST) [facility] HIV AB/AG Nonreactive Nonreactive [facility] Comment:HIV-1 p24 Ag and/or HIV-1/HIV-2 Ab not detected.A test result that is nonreactive does not exclude thepossibility of exposure to or infection with HIV-1 and/orHIV-2. Nonreactive results in this assay for individualswith prior exposure to HIV-1 and/or HIV-2 may be due toantigen and antibody levels that are below the limit ofdetection of this assay.The Pin-DigitalniVapotherm HIV Ag/Ab Combo assay result andsupplemental assay results should be interpreted inconjunction with the patient's clinical presentation,history and other laboratory results. If the results areinconsistent with clinical evidence, additional testing issuggested to confirm the result. 03/27/2024 10:1 9 AM EST 03/27/2024 10:19 AM EST us Generic External Data Provider LAB BLOOD ORDERAB LES Final Result Performing Organization Address [facility] Co de Phone Number [facility] [address] [place] [phone] * Cologuard?? colon cancer screening (02/02/2024 9:15 AM EST) [facility] Cologuard Result Negative Negative 02/08/20 24 2:05 AM [facility] (CLIA #:[id number]) Comment: NEGATIVE TEST RESULT. A negative Cologuard [...] cancer. ??Following a negative Cologuard result, the [place] Cancer Society and U.S. Multi-Society Task Force screening guidelines recommend a Cologuard re-screening interval of 3 years. References: [place] [employer] Guideline for Colorectal Cancer Screening: https://www.cancer.org/cancer/stncx-vdgfzs-bfayus/qmufafhvu-khjxnrveb-wxijzrf/ac s-rec ommendations.html.; Hector DK, Julio Cesar CR, Janet TroncosoK, Colorectal Cancer Screening: Recommendations for Physicians and Patients from the U.S. Multi-Society Task Force on Colorectal Cancer Screening , Am J Gastroenterology 2017; 112:0129-0517. TEST DESCRIPTION: Composite algorithmic analysis of stool [...] (Isadora Rodriguez al, N Engl J Med 2014;370(14):2524-5515.) Cologuard may produce a false negative or false positive result (no colorectal cancer or precancerous polyp present at colonoscopy follow up). A negative Cologuard test result does not guarantee the absence of CRC or advanced adenoma (pre-cancer). The current Cologuard screening interval is every 3 years. ([place] [employer] Society and U.S. Multi-Society Task Force). Cologuard performance data in a 10,000 patient pivotal study using colonoscopy as the reference method can be accessed at the following location: www.[employer].Applico/results. Additional description of the Cologuard test process, warnings and precautions can be found at www.Elast[employer] CorporationogTangord.Applico. Stool specimen (specimen) Rectal contents / Unknown 02/02/2024 9:15 AM EST 02/03/2024 10:52 AM EST Marian Crook MD LAB MOLECULAR DIAGNOSTIC S ORDERABLES Final Result [facility] (CLIA #:[id number]) [place] [address], * BI Mammogram Screening Tomosynthesis Bilateral (12/05/2023 3:30 PM EDT) Anatomical Region Laterality Modality Breast Bilateral Mammography 12/05/2023 3:30 PM EDT Narrative 12/19/2023 8:58 AM EDT ? [place] [facility] ? [address] ?[place] [address] ? Mammography Report ? Signed ? Patient: Abrams James,Corina ?MR#: [id number] ?? [id number] ? : 1975 ?Acct:[id number] ? Age/Sex: 48 / F ?ADM Date: 12/05/23 ? Loc: HO.MAMMO ? Attending Dr: Marian Crook MD ? Ordering Physician: Marian Crook MD ?Results: 1Ne ?? gative ? Date of Service: 12/05/23 ?Follow Up: 1 Year From Orig ?? inal Mammogram ? Procedure(s): MM tomosynthesis screening BI ?? Accession Number(s): [id number] ? cc: Marian Crook MD ? EXAMINATION: [...] DD/ 1530 ? TD/TT: 12/05/23 1540 ? Back Tender Insulation Board: ? Procedure Note Donotnirmalainterpreter, Image - 12/19/2023 [facility] [address] [place] [address] Mammography Report Signed Patient: Yarelis Nielsen#: [id number] : 1975Acct:[id number] Age/Sex: 48 / FADM Date: 12/05/23 Loc: HO.MAMMO Attending Dr: Marian Crook MD Ordering Physician: Marian Crook MDResults: 1Ne gative Date of Service: 12/05/23Follow Up: 1 Year From Orig inal Mammogram Procedure(s): MM tomosynthesis screening BI Accession Number(s): [id number] cc: Marian Crook MD EXAMINATION: MM SCREENING [...] 12/19/23 0855 DD/ 1530 TD/TT: 12/05/23 1540 Back Tender Insulation Board: Marian Crook MD IMG BI PROCEDURES Final Result from Last 3 Months or Most Recently Relevant to Health Maintenance Insurance [facility] Care Teams Electric Blasting Cap Assembler Relationship Specialty Start Date End Date Marian Crook MD [address] [place] [phone] PCP - General Internal Medicine 09/12/23
--- OUTSIDE RECORDS SUMMARY | 2024-07-07 17:27 | XMS_ITS | Encounter Summary ---
Author Organization [employer] Address [address] [facility] 7t [place] [address] Care Team Providers Care Ecommerce Marketing Specialist Name Role Phone Marian Crook MD Primary Care Provider + Reason for Visit * Reason Onset Date Comments Med Refill 03/25/2024 Encounter Details Date Type Department Care Team (Late st Contact Info) Description 03/25/2024 Refill [facility] MEDICINE [address] [place] [address] Marian Crook MD [address] [place] [address] Social History Tobacco Use Types Packs/Day Years [...] Description 10/12/2024 3:30 PM EDT Office Visit [facility] [address] [place] [address] Marian Crook MD [address] [place] [address] documented as of this encounter Visit Diagnoses Not on filedocumented in this encounter Additional Health Concerns Assessment Noted Time PHQ-9 Depression Total Score: 22 024 2:02 PM EDT documented as of this encounter Care Teams Ecommerce Marketing Specialist Relationship Specialty Start Date End Date Marian Crook MD [address] [place] [address] PCP - General Internal Medicine 09/12/23 documented as of this encounter
--- OUTSIDE RECORDS SUMMARY | 2024-07-07 17:27 | XMS_ITS | Encounter Summary ---
Author Organization [employer] Address [address] [facility] 7t [place] [address] Care Team Providers Care Unemployment Insurance Hearing Officer Name Role Phone Marian Crook MD Primary Care Provider + Reason for Visit * Reason Onset Date Comments Med Refill 03/25/2024 Encounter Details Date Type Department Care Team ([facility] st Contact Info) Description 03/25/2024 Refill [facility] MEDICINE [address] [place] [address] Marian Crook MD [address] [place] [address] Moderate persistent asthma without complication Social History [...] Description 10/12/2024 3:30 PM EDT Office Visit [facility] MED[facility] [address] [place] [phone] Marian Crook MD [address] [place] [address] documented as of this encounter Visit Diagnoses Diagnosis Moderate persistent asthma without complication documented in this encounter Additional Health Concerns Assessment Noted Time PHQ-9 Depression Total Score: 22 024 2:02 PM EDT documented as of this encounter Care Teams Unemployment Insurance Hearing Officer Relationship Specialty Start Date End Date Marian Crook MD [address] [place] [phone] PCP - General Internal Medicine 09/12/23 documented as of this encounter
--- OUTSIDE RECORDS SUMMARY | 2024-07-07 17:27 | XMS_ITS | Encounter Summary ---
Author Organization [employer] [facility] Address [address] [place] [address] 7 [place] [address] Care Team Providers Care Alley Worker Name Role Phone Marian Crook MD Primary Care Provider + Reason for Visit * Reason Comments Med Refill Encounter Details Date Type Department Care Team (Late Contact Info) Description 11/27/2023 Refill [facility] [address] [place] [address] [phone] Marian Crook MD [address] [place], [place] [phone] Social History Tobacco Use Types Packs/Day Years [...] Department Care Team (Late Contact Info) Description 10/12/2024 3:30 PM EDT Office Visit [facility] [address] [place] [address] [phone] Marian Crook MD [address] [place], [place] [phone] documented as of this encounter Visit Diagnoses Not on filedocumented in this encounter Additional Health Concerns Assessment Noted Time PHQ-9 Depression Total Score: 16 023 3:25 PM EDT documented as of this encounter Care Teams Alley Worker Relationship Specialty Start Date End Date Marian Crook MD [address] [place] [address] PCP - General Internal Medicine 09/12/23 documented as of this encounter
--- OUTSIDE RECORDS SUMMARY | 2024-07-07 17:27 | XMS_ITS | Encounter Summary ---
Author Organization [employer] Address [address] [place] [address] 7t [place] [address] Care Team Providers Care Solar Installation Manager Name Role Phone [facility] Primary Care Provider Marian Crook MD Primary Care Provider + Reason for Visit * Reason Onset Date Comments Nurse Triage 11/18/2022 Encounter Details Date Type Department Care Team (Late st Contact Info) Description 11/18/2022 Telephone [facility] MEDICINE [address] [place] [address] [facility] [address] [place] [address] Nurse Triage Social History Tobacco Use Types [...] 3:30 PM EDT Office Visit [facility] MEDICINE [address] [place] [address] Marian Crook MD [address] [place] [address] documented as of this encounter Visit Diagnoses Not on filedocumented in this encounter Additional Health Concerns Assessment Noted Time PHQ-9 Depression Total Score: 16 06/18/ 023 3:25 PM EDT documented as of this encounter Care Teams Solar Installation Manager Relationship Specialty Start Date End Date Alisha Hook FNP [address] [place] [address] PCP - General Family Medicine 11/14/21 09/11/23 Marian Crook MD [address] [place] [address] PCP - General Internal Medicine 09/12/23 documented as of this encounter
--- OUTSIDE RECORDS SUMMARY | 2024-07-07 17:27 | XMS_ITS | Encounter Summary ---
Author Organization [employer] Address [address] [facility] 7t [place] [address] Care Team Providers Care Instructional Manager Name Role Phone Marian Crook MD Primary Care Provider + Reason for Visit * Reason Onset Date Comments Med Refill 03/25/2024 Encounter Details Date Type Department Care Team (Late st Contact Info) Description 03/25/[address] [facility] MEDICINE [address] [place] [address] Claritza Leonard DO [address] [place] [address] Social History Tobacco Use Types Packs/Day Years [...] Description 10/12/2024 3:30 PM EDT Office Visit [facility] MEDICINE [address] [place] [address] Marian Crook MD [address] [place] [address] documented as of this encounter Visit Diagnoses Not on filedocumented in this encounter Additional Health Concerns Assessment Noted Time PHQ-9 Depression Total Score: 22 024 2:02 PM EDT documented as of this encounter Care Teams Instructional Manager Relationship Specialty Start Date End Date Marian Crook MD [address] [place] [address] PCP - General Internal Medicine 09/12/23 documented as of this encounter
--- OUTSIDE RECORDS SUMMARY | 2024-07-07 17:27 | XMS_ITS | Encounter Summary ---
Author Organization [employer] Address [address] [facility] 7t [place] [address] Care Team Providers Care Market Research Specialist Name Role Phone Marian Crook MD Primary Care Provider + Reason for Visit * Reason Onset Date Comments Med Refill 03/25/2024 Encounter Details Date Type Department Care Team (Late st Contact Info) Description 03/25/2024 Refill [facility] MEDICINE [address] [place] [address] Claritza Leonard DO [address] [place] [address] Social History Tobacco Use Types Packs/Day Years [...] Description 10/12/2024 3:30 PM EDT Office Visit [facility] MEDICINE [address] [place] [address] Marian Crook MD [address] [place] [address] documented as of this encounter Visit Diagnoses Not on filedocumented in this encounter Additional Health Concerns Assessment Noted Time PHQ-9 Depression Total Score: 22 024 2:02 PM EDT documented as of this encounter Care Teams Market Research Specialist Relationship Specialty Start Date End Date Marian Crook MD [address] [place] [address] PCP - General Internal Medicine 09/12/23 documented as of this encounter
--- OUTSIDE RECORDS SUMMARY | 2024-07-07 17:27 | XMS_ITS | Encounter Summary ---
Author Organization [employer] Address [address] [facility] 7t [place] [address] Care Team Providers Care Hydraulic Specialist Name Role Phone Marian Crook MD Primary Care Provider + Reason for Visit * Reason Comments Med Change Request Encounter Details Date Type Department Care Team ([facility] st Contact Info) Description 06/17/2024 Refill [facility] MEDICINE [address] [place], [place] [phone] Marian Crook MD [address] [place] [address] Social History Tobacco Use Types Packs/Day Years [...] 3:30 PM EDT Office Visit [facility] MEDICINE [address] [place] [address] Marian Crook MD [address] [place] [address] documented as of this encounter Visit Diagnoses Not on filedocumented in this encounter Additional Health Concerns Assessment Noted Time PHQ-9 Depression Total Score: 22 024 2:02 PM EDT documented as of this encounter Care Teams Hydraulic Specialist Relationship Specialty Start Date End Date Marian Crook MD [address] [place] [phone] PCP - General Internal Medicine 09/12/23 documented as of this encounter
--- OUTSIDE RECORDS SUMMARY | 2024-07-07 17:27 | XMS_ITS | Encounter Summary ---
Author Organization [employer] Address [address] [facility] 7t [place] [address] Care Team Providers Care Pickle Pumper Name Role Phone Marian Crook MD Primary Care Provider + Reason for Visit * Reason Onset Date Comments Med Refill 06/02/2024 Encounter Details Date Type Department Care Team ([facility] st Contact Info) Description 06/02/2024 Telephone [facility]INE [address] [place] [address] Marian Crook MD [address] [place] [address] Med Refill Social History Tobacco Use Types [...] 10/12/2024 3:30 PM EDT Office Visit [facility]INE [address] [place] [address] Marian Crook MD [address] [place] [address] documented as of this encounter Visit Diagnoses Diagnosis Moderate persistent asthma without complication documented in this encounter Additional Health Concerns Assessment Noted Time PHQ-9 Depression Total Score: 22 024 2:02 PM EDT documented as of this encounter Care Teams Pickle Pumper Relationship Specialty Start Date End Date Marian Crook MD [address] [place] [address] [phone] PCP - General Internal Medicine 09/12/23 documented as of this encounter
--- OUTSIDE RECORDS SUMMARY | 2024-07-07 17:27 | XMS_ITS | Encounter Summary ---
Author Organization [employer] Address [address] [facility] 7t [place] [address] Care Team Providers Care Senior Technical Writer Name Role Phone Marian Crook MD Primary Care Provider + Reason for Visit * Reason Comments Med Refill Encounter Details Date Type Department Care Team ([facility] st Contact Info) Description 06/05/2024 Refill [facility] MEDICINE [address] [place], [place] [phone] Marian Crook MD [address] [place], [place] [phone] Social History Tobacco Use Types Packs/Day Years [...] Description 10/12/2024 3:30 PM EDT Office Visit [facility] [address] [place] [address] Marian Crook MD [address] [place] [address] documented as of this encounter Visit Diagnoses Not on filedocumented in this encounter Additional Health Concerns Assessment Noted Time PHQ-9 Depression Total Score: 22 024 2:02 PM EDT documented as of this encounter Care Teams Senior Technical Writer Relationship Specialty Start Date End Date Marian Crook MD [address] [place] [id number] PCP - General Internal Medicine 09/12/23 documented as of this encounter
--- OUTSIDE RECORDS SUMMARY | 2024-07-07 17:27 | XMS_ITS | Encounter Summary ---
Author Organization [email or web address] [facility] Address [address] [place] [address] 7 [place] [address] Care Team Providers Care Link Wire Fabric Machine Operator Name Role Phone [facility] Primary Care Provider [phone] Marian Crook MD Primary Care Provider + Encounter Details Date Type Department Care Team (Late st Contact Info) Description 04/03/2023 Abstract [facility] MEDICINE [address] [place] [phone] [facility] [address] [place] [address] Social History Tobacco Use Types Packs/Day Years [...] 3:30 PM EDT Office Visit [facility]INE [address] [place] [address] [phone] Marian Crook MD [address] [place], [place] [phone] documented as of this encounter Visit Diagnoses Not on filedocumented in this encounter Additional Health Concerns Assessment Noted Time PHQ-9 Depression Total Score: 16 023 3:25 PM EDT documented as of this encounter Care Teams Link Wire Fabric Machine Operator Relationship Specialty Start Date End Date Miladys RACQUEL Brito [address] [place] [address] PCP - General Family Medicine 11/14/21 09/11/23 Marian Crook MD [address] [place] [address] PCP - General Internal Medicine 09/12/23 documented as of this encounter
--- OUTSIDE RECORDS SUMMARY | 2024-07-07 17:27 | XMS_ITS | Encounter Summary ---
Author Organization [employer] Address [address] [facility] 7t [place] [address] Care Team Providers Care Carpenter Supervisor Name Role Phone Marian Crook MD Primary Care Provider + Reason for Referral * Cardiac Stress Testing (Routine) - Authorized Specialty Diagnoses / Procedures Referred By Contac t Referred To Contact Cardiology Diagnoses Dizziness Procedures Tilt table Marian Crook MD [address] [place] [address] Phone: tel: fax: [address] Phone: tel: fax: Referral ID Status Reason Start Date Expiration Date V isits Requested Visits Authorized [id number] Authorized 07/02/2024 07/02/2025 1 1 Reason for Visit * Reason Comments Follow-up Encounter Details Date Type Department Care Team (Late st Contact Info) Description 07/02/2024 11:45 AM EDT Office Visit [facility] MEDICINE [address] [place], [place] [phone] Marian Crook MD [address] [place], [place] [phone] Polyuria (Primary Dx); Dizziness; Chronic low back pain without sciatica, unspecified back pain laterality Social History Tobacco Use Types Packs/Day Years [...] your housing situation today? I have bria monika 01/02/[address] you li [...] ??F) 07/02/2024 11:40 AM EDT Respiratory Rate - - Oxygen Saturation 100% 07/02/2024 11:40 AM EDT Inhaled Oxygen Concentration - - Weight 79.8 kg (176 lb) 07/02/2024 11:40 AM EDT Height 160 cm (5' 3 ) 07/02/2024 11:40 AM EDT Body Mass Index 31.18 07/02/2024 11:40 AM EDT documented in this encounter Progress Notes * Marian Crook MD - 07/02/2024 11:45 AM EDT SUBJECTIVE: Corina James is a 49 y.o. year old female who presents for FU /urinary sxs . Denies recent illness, injury, or hospitalization. Continues increased urinary frequency approximately 7 to 10/day, she does not have dysuria but continues with intermittent suprapubic pain and follow-up with urologist. Her main issue is persistent weakness when standing on her feet that she cannot stand for long period of time, feels dizzy especially when changing positions. She occasionally has episodes of chest pain and nausea associated to these symptoms. Her last A1c on August 2023 was 5 and her last random blood sugar was 83 on 06/10/2024. She has heavy menstrual bleedings and has been diagnosed with her thyroid. She had endometrial biopsy which was within normal limits. She has been up on her low back and knee pain, she saw pain management but declined steroid injection. Acute Concerns: Social History Social History Narrative Not on file Patient Active Problem List Diagnosis History of sleeve gastrectomy Iron deficiency anemia Moderate persistent asthma without complication Obstructive sleep apnea syndrome Overweight Pain of right hip Chronic lower back pain Dizziness Polyuria Chronic RLQ pain Screening for colorectal cancer Bright red blood per rectum Generalized abdominal pain Hemorrhoids Anal fissure Depression Family History Problem Relation Name Age of Onset Glaucoma Mother Osteoporosis Mother Hypertension Mother Stroke Father Coronary artery disease Father Coronary artery disease Brother Asthma Father's Sister Asthma Paternal Grandmother Review of Systems Constitutional: Positive for fatigue. Negative for chills and fever. HENT: Negative for congestion, ear pain, nosebleeds, rhinorrhea, sinus pressure, sore throat and trouble swallowing. Eyes: Negative for pain and discharge. Respiratory: Negative for cough, chest tightness and shortness of breath. Cardiovascular: Negative for chest pain, palpitations and leg swelling. Gastrointestinal: Negative for abdominal pain, blood in stool, constipation, diarrhea and nausea. Endocrine: Negative for polydipsia and polyuria. Genitourinary: Positive for frequency and urgency. Negative for dysuria, genital sores, pelvic painand vaginal discharge. Musculoskeletal: Negative for back pain and neck pain. Skin: Negative for rash. Allergic/Immunologic: Negative for environmental allergies. Neurological: Positive for dizziness, light-headedness and headaches. Negative for seizures and weakness. Hematological: Negative for adenopathy. Psychiatric/Behavioral: Negative for agitation, behavioral problems, self-injury and suicidal ideas. OBJECTIVE: Vitals: 07/02/24 1140 07/02/24 1241 07/02/24 1242 07/02/24 1243 BP: 111/70 114/70 106/64 108/67 BP Location: Left arm Left arm Left arm Left arm Patient Position: Sitting Standing Sitting Lying BP Cuff Size: Adult Adult Adult Adult Pulse: 82 Temp: 97 ??F (36.1 ??C) TempSrc: Oral SpO2: 100% Weight: 176 lb (79.8 kg) Height: 5' 3 (1.6 m) Physical Exam HENT: Right Ear: Tympanic membrane and ear canal normal. Left Ear: Tympanic membrane and ear canal normal. Mouth/Throat: Mouth: Mucous membranes are moist. Pharynx: No oropharyngeal exudate or posterior oropharyngeal erythema. Eyes: Pupils: Pupils are equal, round, and reactive to light. Cardiovascular: Rate and Rhythm: Regular rhythm. Pulses: Normal pulses. Heart sounds: Normal heart sounds. No murmur heard. Pulmonary: Breath sounds: Normal breath sounds. Abdominal: General: Bowel sounds are normal. Palpations: Abdomen is soft. Tenderness: There is no abdominal tenderness. Musculoskeletal: General: Normal range of motion. Cervical back: Neck supple. Skin: General: Skin is warm. Neurological: General: No focal deficit present. Mental Status: She is alert and oriented to person, place, and time. Psychiatric: Mood and Affect: Mood normal. Behavior: Behavior normal. Problem List Items Addressed This Visit Polyuria - Primary Reminded her to get 24-hour urine to quantify volume and check for SIADH Relevant Orders POCT Urinalysis (Completed) Dizziness So far has been within normal limits except hemoglobin that has dropped 2 points within 6 months. This could be related to patient's menorrhagia(she is followed by [facility]) + significant diuresis. Patient will have increase water intake, 1 or 2 salty snacks per day and check BP daily in the morning. Reminded her to get a 24-hour urine to quantify volume, rule out SIADH. Order tilt table test Chronic lower back pain Significantly improving on p.o. medications Reconsult as needed to pain clinic Follow Up: Current Outpatient Medications on File Prior to Visit Medication Sig Dispense Refill acetaminophen (Tylenol 8 Hour) 650 MG ER tablet Take 1 tablet (650 mg) by mouth every 8 (eight) hours if needed for mild pain. Do not crush, chew, or split. 50 tablet 2 albuterol 108 (90 Base) MCG/ACT inhaler Inhale 2 puffs every 6 (six) hours if needed for shortness of breath or wheezing. 18 g 3 baclofen (Lioresal) 10 MG tablet TAKE 1/2 TO 1 TABLET (5-10 MG) BY MOUTH 2 TIMES DAILY. 30 tablet 1 cetirizine (ZyrTEC) 10 MG tablet TAKE 1 TABLET BY MOUTH EVERY DAY 90 tablet 0 Diclofenac Sodium 1 % gel Apply 2 g topically if needed in the morning, at noon, in the evening, and at bedtime (pain). 150 g 2 lidocaine (Lidoderm) 5 % patch APPLY 1 PATCH TOPICALLY ONCE PER DAY. REMOVE & DISCARD PATCH WITHIN 12 HOURS OR DIRECTED BY MD. 30 patch 2 meloxicam (Mobic) 7.5 MG tablet TAKE 1 TABLET BY MOUTH EVERY DAY 30 tablet 0 montelukast (Singulair) 10 MG tablet TAKE 1 TABLET BY MOUTH EVERY MORNING 90 tablet 1 nitroglycerin (Rectiv) 0.4 % (w/w) rectal ointment Insert 1 inch (1 Application.) into the rectum every 12 (twelve) hours. 30 g 0 Omeprazole 20 MG tablet delayed-release Take 20 mg by mouth in the morning for 14 days. 14 tablet 0 Vaginal Lubricant (Replens) gel Insert 2 g into the vagina if needed (vaginal dryness). 35 g 1 venlafaxine XR (Effexor XR) 37.5 MG 24 hr capsule Take 1 capsule (37.5 mg) by mouth Once per day. Do not crush or chew. 30 capsule 11 No current facility-administered medications on file prior to visit. documented in this encounter Miscellaneous Notes * Assessment & Plan Note - Marian Crook MD - 07/02/2024 4:04 PM EDT Associated Problem(s): Chronic lower back pain Significantly improving on p.o. medications Reconsult as needed to pain clinic * Assessment & Plan Note - Marian Crook MD - 07/02/2024 4:04 PM EDT Associated Problem(s): Polyuria Reminded her to get 24-hour urine to quantify volume and check for SIADH * Assessment & Plan Note - Marian Crook MD - 07/02/2024 4:02 PM EDT Associated Problem(s): Dizziness So far has been within normal limits except hemoglobin that has dropped 2 points within 6 months. This could be related to patient's menorrhagia(she is followed by [facility]) + significant diuresis. Patient will have increase water intake, 1 or 2 salty snacks per day and check BP daily in the morning. Reminded her to get a 24-hour urine to quantify volume, rule out SIADH. Order tilt table test documented in this encounter Plan of Treatment Upcoming Encounters Date Type Department Care Team (Late st Contact Info) Description 10/12/2024 3:30 PM EDT Office Visit [facility] MEDICINE [address] [place] [address] Marian Crook MD [address] [place], [place] [phone] Scheduled Orders Name Type Priority Associated Diagnoses Orde r Schedule Tilt table Cardiac Services Routine Dizziness Expected: 07/02/2024 (Approximate), Expires: 07/02/2026 documented as of this encounter Procedures Procedure Name Priority Date/Time Associated Diagnosis Comments POCT URINALYSIS DIPSTICK Routine 07/02/2024 12:42 PM EDT Polyuria documented in this encounter Results * POCT Urinalysis (07/02/2024 12:42 PM [...] Media Lot # [id number] Lot# Expiration Date Urine 07/02/2024 12:4 2 PM EDT Marian Crook MD POINT OF CARE TEST ENTER /EDIT ORDERABLES Final Result documented in this encounter Visit Diagnoses Diagnosis Polyuria- Primary Dizziness Dizziness and giddiness Chronic low back pain without sciatica, unspecified back pain laterality documented in this encounter Additional Health Concerns Assessment Noted Time PHQ-9 Depression Total Score: 22 024 2:02 PM EDT documented as of this encounter Care Teams Carpenter Supervisor Relationship Specialty Start Date End Date Marian Crook MD [address] [place] [id number] PCP - General Internal Medicine 09/12/23 documented as of this encounter
== END 2024-07-07 15:18 | disposition home or self-care (01) ==
LOC: HO.HWS 14:41
PROVIDERS: PCP Internal Medicine; Visit Provider Obstetrics & Gynecology
DX: N93.9 Abnormal uterine and vaginal bleeding, unspecified (principal)
CPT/HCPCS: 58100

== ENCOUNTER 2024-07-21 13:50 | Outpatient (AMB) | payer OTHER, SELFPAY ==
--- NOTE | 2024-07-21 13:55 | MHC.OFFVIS ---
Vital Signs 07/21/24 14:02 Height 5 ft 3 in Weight 170 lb BMI 30.1 Handedness Right Intake Visit Reasons: Left knee pain and giving way, Right knee pain Intake Note: Corina is a 49 year old female who presents with complaints of progressively worsening left knee pain and giving way as well as intermittent right knee pain. She describes her left knee pain as sharp in nature. Most of the pain is along the medial aspect of her knee. She did injure her left knee approximately 1 year ago. She states that her left knee will give out several times per day. She has failed the last 6 weeks of conservative treatment which has included physical therapy exercises, a home exercise program, Tylenol and anti-inflammatory medicines. Allergies No Known Allergies [No Known Allergies*] Allergy (Verified 06/25/24 13:57) Medication List - Last Reconciled 07/21/24 by Merrick Toribio MD albuterol sulfate 1 vial inhalation Q4H PRN cholecalciferol (vitamin D3) (Vitamin D3) 50 mcg PO DAILY hydrocortisone acetate (Anusol-HC) 25 mg NH BEDTIME 12 days lidocaine 5% 1 patch topical DAILY omeprazole 20 mg PO DAILY tadalafil 5 mg PO DAILY 90 days PFSH Medical History delivery delivered Depression Anal fissure Hemorrhoids Chronic RLQ pain Polyuria Dizziness FILIBERTO (obstructive sleep apnea) Moderate persistent asthma in adult without complication Chronic low back pain Iron deficiency Arthritis History of asthma Surgical History Hx of colonoscopy History of esophagogastroduodenoscopy (EGD) S/P laparoscopic sleeve gastrectomy H/O abdominoplasty Family History Mother History of hypertension Arthritis Glaucoma Father Heart problem History of hypertension Brother Heart problem History of hypertension Sister History of hypertension Brother No problems noted. Brother No problems noted. Brother No problems noted. Brother No problems noted. Sister Ovarian cancer Sister No problems noted. Sister No problems noted. 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 Female Reproductive History Menstrual Age of Menarche: 14 Physical Exam Vital Signs: BMI result Body Mass Index 30.1 Const Other: Well-nourished well-developed very friendly female awake alert and oriented x3 in no acute distress Extrem Other: Bilateral lower extremity examination shows good capillary refill, no skin lesions noted, normal sensation light touch Left knee examination shows a minimal effusion, minimal crepitus with range of motion, tenderness along her medial joint line, positive Madison's test, no instability Right knee examination shows a minimal effusion, mild discomfort with range of motion, negative Madison's test, no instability Office Procedures AMB Joint Injection/Aspiration Joint Injection/Aspiration Primary Site: left knee Prep: site was prepped using aseptic technique Injected: 40 mg of, DepoMedrol and 1% plain lidocaine Procedure: The patient tolerated the procedure well Coding 06744 - Large joint Procedure code (CPT) selection complete Results Reviewed Results Reviewed: Standing full weight-bearing x-rays of the patient's bilateral knee show mild diffuse joint space narrowing, no acute bony abnormalities Assessment & Plan Assessment & Plan (1) Tear of medial meniscus of left knee: Code(s): S83.242A - Other tear of medial meniscus, current injury, left knee, initial encounter Category: Medical (2) Left knee pain: Code(s): M25.562 - Pain in left knee Category: Medical (3) Right knee pain: Code(s): M25.561 - Pain in right knee Plan Ms. Jose Alberto James presents with progressively worsening left knee pain and mechanical symptoms most likely due to a medial meniscus tear. She also has intermittent right knee discomfort. The risks and benefits of a left knee cortisone injection were discussed at length with the patient. The patient wished to proceed. She tolerated the injection well. I will also send the patient for an MRI of her left knee to further evaluate the status of her medial meniscus. I will see her back once the MRI is completed to discuss the findings and treatment options. She will follow-up as instructed. I spent 22 minutes in reviewing the patient's records and imaging studies, seeing the patient and documenting in the medical record. Orders: Orders MR knee LT wo con 07/21/24 S83.242A - Other tear of medial meniscus, current injury, left knee, initial encounter AMB Joint Injection/Aspiration 07/21/24 M25.562 - Pain in left knee Coding Level of Care Code New Pt Level 3 (61676) Complex EM visit Add On G2211 Diagnoses Tear of medial meniscus of left knee S83.242A Left knee pain M25.562 Right knee pain M25.561 CPT Codes Coding - 77301 Large joint: 88575 - Large joint ([id number])
[2024-07-21 14:02] VITALS: BMI 30.1
--- OUTSIDE RECORDS SUMMARY | 2024-07-21 15:05 | XMS_ITS | Encounter Summary ---
Author Organization [employer] Address [address] [facility] 7t [place] [address] Care Team Providers Care Engraver Hand Hard Metals Name Role Phone Marian Crook MD Primary Care Provider + Reason for Visit * Reason Comments Med Refill Encounter Details Date Type Department Care Team ([facility] st Contact Info) Description 06/05/2024 Refill [facility] [address] [place], [place] [phone] Marian Crook MD [address] [place], [place] [phone] Social History Tobacco Use Types Packs/Day Years [...] 3:30 PM EDT Office Visit [facility] [address] [place] [address] Marian Crook MD [address] [place] [address] documented as of this encounter Visit Diagnoses Not on filedocumented in this encounter Additional Health Concerns Assessment Noted Time PHQ-9 Depression Total Score: 22 024 2:02 PM EDT documented as of this encounter Care Teams Engraver Hand Hard Metals Relationship Specialty Start Date End Date Marian Crook MD [address] [place] [id number] PCP - General Internal Medicine 09/12/23 documented as of this encounter
--- OUTSIDE RECORDS SUMMARY | 2024-07-21 15:05 | XMS_ITS | Encounter Summary ---
Author Organization [employer] Address [address] [place] [address] 7t [place] [address] Care Team Providers Care Security Systems Technician Name Role Phone [facility] Primary Care Provider [phone] Marian Crook MD Primary Care Provider + Reason for Visit * Reason Onset Date Comments Nurse Triage 11/18/2022 Encounter Details Date Type Department Care Team (Late st Contact Info) Description 11/18/2022 Telephone [facility] [address] [place] [address] [facility] [address] [place] [address] Nurse Triage Social History Tobacco Use Types [...] Description 10/12/2024 3:30 PM EDT Office Visit [facility] [address] [place] [address] Marian Crook MD [address] [place] [address] documented as of this encounter Visit Diagnoses Not on filedocumented in this encounter Additional Health Concerns Assessment Noted Time PHQ-9 Depression Total Score: 16 06/18/ 023 3:25 PM EDT documented as of this encounter Care Teams Security Systems Technician Relationship Specialty Start Date End Date Alisha Hook FNP [address] [place] [address] PCP - General Family Medicine 11/14/21 09/11/23 Marian Crook MD [address] [place] [address] PCP - General Internal Medicine 09/12/23 documented as of this encounter
--- OUTSIDE RECORDS SUMMARY | 2024-07-21 15:05 | XMS_ITS | Clinical Summary ---
Author Organization [facility] Address [address] [place] [address] Phone Care Team Providers Care Dairy Husbandry Worker Name Role Phone Marian Crook MD Primary Care Provider Encounters Date Type Department Care Team Description 07/02/[address] [place] [address] Marian Crook MD Referral (Received routine paper referral - June) from Last 3 Months Social History Tobacco Use Types Packs/Day Years Used Date Smoking Tobacco: Never Assessed Comments Unknown Sex and Gender Information Value Date Recorded Sex Assigned at Not on file Legal Sex Female 2:27 AM EST Gender Identity Not on file Sexual Orientation Not on file Plan of Treatment Health Maintenance Due Date Last Done Comments Breast Cancer Screening 1975 DTaP,Tdap,and Td Vaccines (1 - Tdap) 1994 Hepatitis B Vaccines (1 of 3 - 19+ 3-dose series) 1994 Cervical Cancer Screening: P ap Smear 02/10/1996 COVID-19 Vaccine (2023-2 5 season) 2023 Colorectal Cancer Screening: Colonoscopy 07/08/2024 Depression Screening 07/08/2024 HIV Screening 07/08/2024 Hepatitis C Screening 07/08/2024 Social Influencers of Health Screening 07/08/2024 Influenza Vaccine (Season Ended) 2024 HIB Vaccines Aged Out No longer eligi [...] on patient's age to complete this topic MMR Vaccines Aged Out No longer eligi ble based on patient's age to complete this topic Meningococcal ACWY Vaccine Aged Out N o longer eligible based on patient's age to complete this topic Meningococcal B Vaccine Aged Out No l onger eligible based on patient's age to complete this topic Pneumococcal Vaccine: Pediat rics (0 to 5 Years) and At-Risk Patients (6 to 64 Years) Aged Out No longer eligible b ased on patient's age to complete this topic RSV Immunization Patients Un twan 20 months Aged Out No longer eligible b ased on patient's age to complete this topic Varicella Vaccines Aged Out No longer eligible based on patient's age to complete this topic Insurance [facility] [employer] PLAN MEDICAID - [place] Care Teams Dairy Husbandry Worker Relationship Specialty Start Date End Date Marian Crook MD [address] [place] [phone] PCP - General Internal Medicine 07/08/24
--- OUTSIDE RECORDS SUMMARY | 2024-07-21 15:05 | XMS_ITS | Encounter Summary ---
Author Organization [employer] Address [address] [facility] 7t [place] [address] Care Team Providers Care Title Manager Name Role Phone Marian Crook MD Primary Care Provider + Reason for Visit * Reason Onset Date Comments Med Refill 03/25/2024 Encounter Details Date Type Department Care Team (Late st Contact Info) Description 03/25/2024 Refill [facility] [address] [place] [address] Claritza Leonard DO [address] [place] [address] Social History Tobacco Use Types Packs/Day Years [...] 10/12/2024 3:30 PM EDT Office Visit [facility] [address] [place] [address] Marian Crook MD [address] [place] [address] documented as of this encounter Visit Diagnoses Not on filedocumented in this encounter Additional Health Concerns Assessment Noted Time PHQ-9 Depression Total Score: 22 024 2:02 PM EDT documented as of this encounter Care Teams Title Manager Relationship Specialty Start Date End Date Marian Crook MD [address] [place] [address] PCP - General Internal Medicine 09/12/23 documented as of this encounter
--- OUTSIDE RECORDS SUMMARY | 2024-07-21 15:05 | XMS_ITS | Encounter Summary ---
Author Organization [employer] Address [address] [facility] 7t [place] [address] Care Team Providers Care Senior Drafter Name Role Phone Marian Crook MD Primary Care Provider + Reason for Visit * Reason Onset Date Comments Med Refill 03/25/2024 Encounter Details Date Type Department Care Team ([facility] st Contact Info) Description 03/25/2024 Refill [facility] [address] [place] [address] Marian Crook MD [address] [place] [address] Moderate persistent asthma without complication Social History [...] 10/12/2024 3:30 PM EDT Office Visit [facility] [address] [place] [address] Marian Crook MD [address] [place] [address] documented as of this encounter Visit Diagnoses Diagnosis Moderate persistent asthma without complication documented in this encounter Additional Health Concerns Assessment Noted Time PHQ-9 Depression Total Score: 22 024 2:02 PM EDT documented as of this encounter Care Teams Senior Drafter Relationship Specialty Start Date End Date Marian Crook MD [address] [place] [id number] PCP - General Internal Medicine 09/12/23 documented as of this encounter
--- OUTSIDE RECORDS SUMMARY | 2024-07-21 15:05 | XMS_ITS | Encounter Summary ---
Author Organization [employer] Address [address] [facility] 7t [place] [address] Care Team Providers Care Hat Renovator Name Role Phone Marian Crook MD Primary Care Provider + Reason for Visit * Reason Comments Med Change Request Encounter Details Date Type Department Care Team ([facility] st Contact Info) Description 06/17/2024 Refill [facility] [address] [place], [place] [phone] Marian Crook MD [address] [place], [place] [phone] Social History Tobacco Use Types Packs/Day Years [...] Description 10/12/2024 3:30 PM EDT Office Visit [facility] [address] [place] [address] Marian Crook MD [address] [place] [address] documented as of this encounter Visit Diagnoses Not on filedocumented in this encounter Additional Health Concerns Assessment Noted Time PHQ-9 Depression Total Score: 22 024 2:02 PM EDT documented as of this encounter Care Teams Hat Renovator Relationship Specialty Start Date End Date Marian Crook MD [address] [place] [id number] PCP - General Internal Medicine 09/12/23 documented as of this encounter
--- OUTSIDE RECORDS SUMMARY | 2024-07-21 15:05 | XMS_ITS | Encounter Summary ---
Author Organization [employer] Address [address] [facility] 7t [place] [address] Care Team Providers Care Slinger Sequins Name Role Phone Marian Crook MD Primary Care Provider + Reason for Visit * Reason Onset Date Comments Med Refill 06/02/2024 Encounter Details Date Type Department Care Team ([facility] st Contact Info) Description 06/02/2024 Telephone [facility] [address] [place] [address] Marian Crook MD [address] [place] [address] Med Refill Social History Tobacco Use Types [...] Description 10/12/2024 3:30 PM EDT Office Visit [facility] [address] [place] [address] Marian Crook MD [address] [place] [address] documented as of this encounter Visit Diagnoses Diagnosis Moderate persistent asthma without complication documented in this encounter Additional Health Concerns Assessment Noted Time PHQ-9 Depression Total Score: 22 024 2:02 PM EDT documented as of this encounter Care Teams Slinger Sequins Relationship Specialty Start Date End Date Marian Crook MD [address] [place] [phone] PCP - General Internal Medicine 09/12/23 documented as of this encounter
--- OUTSIDE RECORDS SUMMARY | 2024-07-21 15:05 | XMS_ITS | Encounter Summary ---
Author Organization [employer] Address [address] [facility] 7t [place] [address] Care Team Providers Care Product Safety Officer Name Role Phone Marian Crook MD Primary Care Provider + Reason for Visit * Reason Onset Date Comments Med Refill 03/25/2024 Encounter Details Date Type Department Care Team (Late st Contact Info) Description 03/25/2024 Refill [facility] [address] [place] [address] Claritza Leonard DO [address] [place] [address] Social History Tobacco Use Types Packs/Day Years [...] 3:30 PM EDT Office Visit [facility] [address] [place] [address] Marian Crook MD [address] [place] [address] documented as of this encounter Visit Diagnoses Not on filedocumented in this encounter Additional Health Concerns Assessment Noted Time PHQ-9 Depression Total Score: 22 024 2:02 PM EDT documented as of this encounter Care Teams Product Safety Officer Relationship Specialty Start Date End Date Marian Crook MD [address] [place] [address] PCP - General Internal Medicine 09/12/23 documented as of this encounter
--- OUTSIDE RECORDS SUMMARY | 2024-07-21 15:05 | XMS_ITS | Encounter Summary ---
Author Organization [employer] [facility] Address [address] [place] [address] 7 [place] [address] Care Team Providers Care Territory Development Manager Name Role Phone [facility] Primary Care Provider [phone] Marian Crook MD Primary Care Provider + Encounter Details Date Type Department Care Team (Late st Contact Info) Description 04/03/2023 Abstract [facility] [address] [place] [address] [phone] [facility] [address] [place] [address] Social History Tobacco Use Types Packs/Day Years [...] Description 10/12/2024 3:30 PM EDT Office Visit [facility] [address] [place] [phone] Marian Crook MD [address] [place], [place] [phone] documented as of this encounter Visit Diagnoses Not on filedocumented in this encounter Additional Health Concerns Assessment Noted Time PHQ-9 Depression Total Score: 16 023 3:25 PM EDT documented as of this encounter Care Teams Territory Development Manager Relationship Specialty Start Date End Date Miladys RACQUEL Brito [address] [place] [address] PCP - General Family Medicine 11/14/21 09/11/23 Marian Crook MD [address] [place] [address] PCP - General Internal Medicine 09/12/23 documented as of this encounter
--- OUTSIDE RECORDS SUMMARY | 2024-07-21 15:05 | XMS_ITS | Encounter Summary ---
Author Organization [employer] Address [address] [facility] 7t [place] [address] Care Team Providers Care Railway Shunter Name Role Phone Marian Crook MD Primary Care Provider + Reason for Visit * Reason Onset Date Comments Med Refill 03/25/2024 Encounter Details Date Type Department Care Team (Late st Contact Info) Description 03/25/2024 Refill [facility] [address] [place] [address] Marian Crook MD [address] [place] [address] Social History Tobacco Use Types Packs/Day Years [...] [facility] [address] [place] [address] Marian Crook MD [address] [place] [address] documented as of this encounter Visit Diagnoses Not on filedocumented in this encounter Additional Health Concerns Assessment Noted Time PHQ-9 Depression Total Score: 22 024 2:02 PM EDT documented as of this encounter Care Teams Railway Shunter Relationship Specialty Start Date End Date Marian Crook MD [address] [place] [address] PCP - General Internal Medicine 09/12/23 documented as of this encounter
--- OUTSIDE RECORDS SUMMARY | 2024-07-21 15:05 | XMS_ITS | Encounter Summary ---
Author Organization [employer] [facility] Address [address] [place] [address] 7 [place] [address] Care Team Providers Care Home Stager Name Role Phone Marian Crook MD Primary Care Provider + Reason for Visit * Reason Comments Med Refill Encounter Details Date Type Department Care Team (Late Contact Info) Description 11/27/2023 Refill [facility] [address] [place] [phone] Marian Crook MD [address] [place], [place] [phone] Social History Tobacco Use Types Packs/Day Years [...] Description 10/12/2024 3:30 PM EDT Office Visit [facility] [address] [place] [address] [phone] Marian Crook MD [address] [place], [place] [phone] documented as of this encounter Visit Diagnoses Not on filedocumented in this encounter Additional Health Concerns Assessment Noted Time PHQ-9 Depression Total Score: 16 023 3:25 PM EDT documented as of this encounter Care Teams Home Stager Relationship Specialty Start Date End Date Marian Crook MD [address] [place] [address] PCP - General Internal Medicine 09/12/23 documented as of this encounter
--- OUTSIDE RECORDS SUMMARY | 2024-07-21 15:05 | XMS_ITS | Clinical Summary ---
Author Organization [facility] Address [address] [place] [address] [address] [place] [address] Care Team Providers Care Truck Body Repairer Name Role Phone Marian Crook MD [...] related to patient's menorrhagia(she is followed by [facility]) + significant diuresis. Patient will have increase [...] for this letter, she has appt with [facility] next week. I told her to reach out to legal clerk to help her write a letter so that housing give her some more time to get the letter from provider. She will res tart Effexor for anxiety and fu with me in 6m Encounters Date Type Department Care Team Description 07/07/2024 Orders Only GENERIC EXTERNAL DATA DEPARTMENT Provider, Generic External Data 07/02/2024 11:45 AM EDT Office Visit [facility] [address] [place] [phone] Marian Crook MD Polyuria (Primary Dx); Dizziness; Chronic low back pain without sciatica, unspecified back pain laterality 07/02/2024 Travel 06/30/[address] [address] Marian Crook MD Chart prep 06/25/2024 Orders Only GENERIC EXTERNAL DATA DEPARTMENT Provider, Generic External Data 06/24/2024 Orders Only [address] [address] Marian Crook MD Bilateral primary osteoarthritis of knee (Primary Dx) 06/23/2024 Patient Outreach [facility] [address] [place] [phone] Marian Crook MD Pre-visit Planning (SDOH screening negative and tobacco screening negative) 06/18/2024 Orders Only GENERIC EXTERNAL DATA DEPARTMENT Provider, Generic External Data 06/17/2024 Refill [facility] [address] [place] [phone] Marian Crook MD 06/05/2024 Refill [facility] [address] [place] [address] [phone] Marian Crook MD 06/05/2024 Refill [facility] [address] [place] [address] [phone] Claritza Leonard DO 06/04/2024 Population Health Risk Score [facility] [address] [phone] Provider, Population Health Generic 06/02/[address] [address] Marian Crook MD Med Refill 06/02/2024 Telephone [facility] [address] [place] [phone] Marian Crook MD Referral 06/02/[address] [address] Marian Crook MD 05/28/2024 3:15 PM EST Office Visit [address] [address] Tata Fink NP Chronic pain of both knees (Primary Dx) 05/26/[address] [address] Marian Crook MD Nurse Triage 05/13/[address] [address] Marian Crook MD Moderate persistent asthma without complication 05/07/[address] [address] Marian Crook MD 05/05/2024 Orders Only GENERIC EXTERNAL DATA DEPARTMENT Provider, Generic External Data 04/29/2024 Orders Only [facility] [address] [place] [address] Claritza Leonard DO Bilateral renal cysts (Primary Dx); Uterine leiomyoma, unspecified location; Excessive bleeding in premenopausal period 04/29/[address] [address] Marian Crook MD Nurse Triage 04/27/2024 Orders Only GENERIC EXTERNAL DATA DEPARTMENT Provider, Generic External Data 04/26/2024 Orders Only GENERIC EXTERNAL DATA DEPARTMENT Provider, Generic External Data 04/26/[address] [address] Lina Yarbrough, [place] Results 04/23/[address] [address] Marian Crook MD June recall from Last 3 Months Immunizations Name Administration [...] Description 10/12/2024 3:30 PM EDT Office Visit [facility] [address] [place] [address] Marian Crook MD [address] [place] [address] Health Maintenance Due Date Last Done Comments CT Colonography 1975 Colonoscopy 1975 FIT 1975 FOBT 1975 Sigmoidoscopy 1975 Family Planning (PISQ) 1990 Hepatitis B Vaccines (2 of 3 - 19+ 3-dose series) 11/08/2013 10/11/2013, 12/02/2008, 10/11/2008 COVID-19 Vaccine ( season) 2023 04/25/2021, 05/14/2020, 04/23/2020 Influenza Vaccine (#1) 2023 , 12/20/2018, 05/15/2017, Additional history exists Mammogram 12/04/2024 12/05/2023, 09/21, 09/29/2017 Alcohol/Substance Use [...] Procedure Name Priority Date/Time Associated Diagnosis Comments HEMATOXYLIN AND EOSIN STAIN Routine 07/07/2024 3:35 PM EDT POCT URINALYSIS DIPSTICK Routine 07/02/2024 12:42 PM [...] AUTO DIFFERENTIAL Routine 04/26/2024 4:47 PM EST HEPATITIS C ANTIBODY Routine 03/27/2024 10:19 AM EST HIV 1/2 ANTIGEN/ANTIBODY, FOURTH GENERATION W/RFL Routine 03/27/2024 10:19 AM EST LAB COLOGUARD?? COLON CANCER SCREEN Routine 02/02/2024 9:15 AM EST Screening for colorectal cancer BI MAMMOGRAM SCREENING TOMOSYNTHESIS BILATERAL Routine 12/05/2023 3:30 PM EDT Screening mammogram for breast cancer from Last 3 Months or Most Recently Relevant to Health Maintenance Results * Hematoxylin and Eosin Stain (07/07/2024 3:35 PM EDT) Only the most recent of2 resultswithin the time period is included. 07/07/2024 3:35 PM EDT 07/08/2024 8:15 AM EDT [facility] - 07/09/2024 3:29 PM EDT ----- ------- Name: Corina Nielsen ?Age/Sex: 49/F ? : 1975 Unit#: [id number] ?? Attend Dr: Pj Posadas MD ?Re07/07/24 ?Status: DEP REF ? Location: HO.LNP ?Disch: ? ----- ------- SPEC : [id number] ? RECD: 07/08/24-814 ? STATUS: ??SOUT ? REQ NUM: [id number] ? LAURA: 07/07/24-1528 ? SUBM DR: Pj Posadas MD ? ENTERED: ??07/08/24 ?SP TYPE: Surgical ? OTHR DR: Marian Crook MD ? ORDERED: ??HE Stain/2, Gross Micro L4 ? Diagnosis ?? Endometrium, biopsy: ?- Mixed pattern secretory and inactive endometrium with breakdown; no atypia or ?? hyperplasia identified. ?- Few fragments of endocervical and squamous epithelium within normal limits; ?? mucoinflammatory material; no atypia identified. ?Clinical History AUB ?Microscopic Description Microscopic sections reviewed. ? Material Received ?? EMB ? Gross Description Received in formalin labeled ?EMB? is a 2.0 x 2.0 x 1.0 cm aggregate of multiple congested and hemorrhagic gordon-brown irregular tissue fragments, copious mucus and blood, submitted in toto in cassettes A1 and A2. CEDS Copies To: ?? Marian Crook MD ?? [facility] ?? [address] ?? [place] [address] ?? [phone] ?? Pj Posadas MD ?? [facility] Women's Services ?? [address] ?? [place] [address] ?? [phone] ? CONTINUED ON NEXT PAGE ----- ------- Name: Jose Alberto JamesCorina ?Age/Sex: 49/F ? : 1975 Unit#: [id number] ?? Attend Dr: Pj Posadas MD ?Re07/07/24 ?Status: DEP REF ? Location: HO.LNP ?Disch: ? ----- ------- SPEC : [id number] ? RECD: 07/08/24 ? STATUS: ??SOUT ? REQ NUM: [id number] ? LAURA: 07/07/24-5897 ? SUBM DR: Pj Posadas MD ? ENTERED: ??07/08/24 ?SP TYPE: Surgical ? OTHR DR: Marian Crook MD ? ORDERED: ??HE Stain/2, Gross Micro L4 ? ----- ------- Signed (signature on file) Maciej Elmore MD 07/09/24 1529 ? ----- ------- ? END OF REPORT ? us Generic External Data Provider LAB BLOOD ORDERAB LES Final Result [facility] [address] [place] [phone] * POCT Urinalysis (07/02/2024 12:42 PM EDT) [...] Media Lot # [id number] Lot# Expiration Date , Urine 07/02/2024 12:4 2 PM EDT us Marian Crook MD POINT OF CARE TEST ENTER /EDIT ORDERABLES Final Result * High Sensitivity Troponin I (06/18/2024 11:08 AM EDT) Only the most recent of2 resultswithin the time period is included. TROPONIN I HIGH SENSITIVITY <2.7 <3.5 - 17.0 ng/L [facility] Comment:The Thomason high sens itivity Troponin-I results should beused in conjunction with other diagnostic information suchas ECG, clinical observations and information, and patientsymptoms to aid in the diagnosis of PA. 06/18/2024 11:0 8 AM EDT 06/18/2024 11:15 AM EDT us Generic External Data Provider LAB BLOOD ORDERAB LES Final Result [facility] [address], [place] [phone] * XR Chest 1 View (06/18/2024 9:10 AM EDT) Anatomical Region Laterality Modality Chest Radiographic Irais ging 06/18/2024 9:10 AM EDT Narrative 06/18/2024 9:37 AM EDT ? [facility] ?[address] ?[place] [address] ?XRay Report ? Signed ? Patient: Jose Alberto James,Corina ?MR#: [id number] ?? [id number] ? : 1975 ?Acct:[id number] ? Age/Sex: 49 / F ?ADM Date: 03/28/25 ? Loc: HO.ED ? Attending Dr: ? Ordering Physician: Lisa Nguyen DO ?? Date of Service: 06/18/24 ?? Procedure(s): XR chest 1V ?? Accession Number(s): [id number] ? cc: Marian Crook MD; Lisa Nguyen [...] ? DD/ 0910 ? TD/TT: 06/18/24924 ? Technical Spec: ? Procedure Note Carli Mesa - 06/18/[address] [address] XRay Report Signed Patient: Yarelis Nielsen#: [id number] : 1975Acct:[id number] Age/Sex: 49 / FADM Date: 06/18/24 Loc: HO.ED Attending Dr: Ordering Physician: Lisa Nguyen DO Date of Service: 06/18/24 Procedure(s): XR chest 1V Accession Number(s): [id number] cc: Marian Crook MD; Lisa Nguyen DO [...] Dorian Graham MD 06/18/2024 09:34 AM EDT RP Dictated By: Dorian Graham MD Signed By: <Electronically signed by Dorian Graham MD in OV> 06/18/24933 DD/ 9 TD/TT: 06/18/24924 Technical Spec: [facility] External Provider IMG XR PROCEDURES Final Result * US VENOUS DUPLEX LE LT (06/18/2024 9:09 AM EDT) Anatomical Region Laterality Modality Abdomen Ultrasound 06/18/2024 9:09 AM EDT Narrative 06/18/2024 9:20 AM EDT ? [facility] ?[address] ?[place] [address] ? Ultrasound Report ? Signed ? Patient: Jose Alberto James,Corina ?MR#: [id number] ?? [id number] ? : 1975 ?Acct:[id number] ? Age/Sex: 49 / F ?ADM Date: 06/18/24 ? Loc: HO.ED ? Attending Dr: ? Ordering Physician: Lisa Nguyen DO ?? Date of Service: 06/18/24 ?? Procedure(s): US venous duplex LE LT ?? Accession Number(s): [id number] ? cc: Marian Crook MD; Lisa Nguyen [...] Valentino Jones MD in OV> ? 06/18/24 09 ? DD/ 0909 ? TD/TT: 06/18/2414 ? Technical Spec: ? Procedure Note Donotuseinterpreter, Image - 06/18/[address] [address] Ultrasound Report Signed Patient: Yarelis Nielsen#: [id number] : 1975Acct:[id number] Age/Sex: 49 / FADM Date: 06/18/24 Loc: .ED Attending Dr: Ordering Physician: Lisa Nguyen DO Date of Service: 06/18/24 Procedure(s): US venous duplex LE LT Accession Number(s): [id number] cc: Marian Crook MD; Lisa Nguyen DO [...] MDin OV> 06/18/24917 DD/ 8 TD/TT: 06/18/24913 Technical Spec: us [facility] External Provider IMG US PROCEDURES Final Result * D Dimer High Sensitivity (06/18/2024 8:29 AM EDT) Pathologist [facility] D Dimer High Sensitivity <150 NG/ML [facility] Comment:D-DIMER HS REFERENCE RANGENote: [...] Provider LAB BLOOD ORDERAB LES Final Result [facility] [address] [place] [phone] * (ABNORMAL) CBC auto differential (06/18/2024 8:29 AM EDT) Only the most recent of2 resultswithin the time period is included. [facility] White Blood Count 6.1 4.8 - 10.8 X10*3/uL [facility] Red Blood Count 4.36 4.20 - 5.50 X10*6/uL [facility] Hemoglobin 13.5 12.0 - 16.0 g/dl [facility] Hematocrit 40.2 37.0 - 47.0 % [facility] Mean Corpuscular Volume 92.2 80.0 - 98.0 fL [facility] Mean Corpuscular Hemoglobin 31.0 27.0 - 33.0 pg [facility] Mean Corpuscular HGB Conc 33.6 31.0 - 35.0 g/dl [facility] Red Cell Distribution Width 13.5 11.0 - 16.0 % [facility] Platelet Count 192 160 - 400 X10*3/uL [facility] Mean Platelet Volume 10.5 9.4 - 12.3 fL [facility] Neutrophils Percent Auto 76.0(H) 45 - 73 % [facility] Imm Gran Pct Auto 0.3 0.0 - 0.4 % [facility] Lymphocytes Percent Auto 16.3(L) 20 - 40 % [facility] Monocytes Percent Auto 6.2 2 - 11 % [facility] Eosinophils Percent Auto 0.7 0 - 4 % [facility] Basophils Percent Auto 0.5 0 - 2 % [facility] NRBC Pct Auto 0.0 0.0 - 0.2 /100WBC [facility] Neutrophils Absolute Auto 4.7 2.0 - 8.3 x10*3/uL [facility] Imm Gran Abs Auto 0.02 0.00 - 0.03 X10*3/uL [facility] Lymphocytes Absolute Auto 1.0(L) 1.2 - 4.9 X10*3/uL [facility] Monocytes Absolute Auto 0.4 0.1 - 1.2 X10*3/uL [facility] Eosinophils Absolute Auto 0.0 0.0 - 0.4 X10*3/uL [facility] Basophils Absolute Auto 0.0 0.0 - 0.2 X10*3/uL [facility] NRBC Abs Auto 0.000 0.0 - 0.012 X10*3/uL [facility] 06/18/2024 8:29 AM EDT 06/18/2024 8:32 AM EDT us Generic External Data Provider LAB BLOOD ORDERAB LES Final Result [facility] [address] [place] [phone] * Prothrombin Time-INR (06/18/2024 8:29 AM EDT) Only the most recent of2 resultswithin the time period is included. Prothrombin Time 12.3 10.9 - 12.4 SEC [facility] INTERNATIONAL NORM RATIO 1.1 0.9 - 1.1 [facility] Comment:INTERNATIONAL NORMAL IZED RATIO [...] LES Final Result Performing Organization Address [facility] Co de Phone Number [facility] [address] [place] [phone] * Magnesium (06/18/2024 8:29 AM EDT) Only the most recent of2 resultswithin the time period is included. Magnesium 1.9 1.6 - 2.6 mg/dL [facility] 06/18/2024 8:29 AM EDT 06/18/2024 8:32 AM EDT [employer] External Data Provider LAB BLOOD ORDERAB LES Final Result Performing Organization Address [facility] de Phone Number [facility] [address] [place] [phone] * (ABNORMAL) Comprehensive Metabolic Panel (06/18/2024 8:29 AM EDT) Only the most recent of2 resultswithin the time period is included. Sodium 138 135 - 145 mmol/L [facility] Potassium 3.9 3.3 - 5.1 mmol/L [facility] Chloride 112(H) 96 - 108 mmol/L [facility] Carbon Dioxide 21(L) 22 - 29 mmol/L [facility] Anion Gap 9(L) 12 - 20 [facility] Urea Nitrogen (BUN) 15 9 - 16 mg/dL [facility] Creatinine, Serum 0.70 0.5 - 1.4 mg/dL [facility] Creatinine Clr Calc Pharmacy 95.9 [facility] Comment:Provided height and weight: 160.02 cm,77.7 kg.eGFR (calculated from the MDRD study equation) and eCrCl(calculated from the Cockcroft-Gault equation) are based ondifferent parameters and may not yield comparable results.If eCrCl result is absurd, please check patient'sheight/weight. Estimated Glomerular Filt Rate >60 [facility] Comment:Chronic Kidney Disea se: Estimated GFR < 60 mL/min/[id number] Kidney Disease: Estimated GFR < 15 mL/min/1.73m2 Glucose 93 60 - 115 mg/dL [facility] Calcium 8.9 8.4 - 10.2 mg/dL [facility] Bilirubin, Total 0.5 0.0 - 1.0 mg/dL [facility] Aspartate Amino Transferase 21 5 - 31 U/L [facility] Alanine Aminotransferase 16 0 - 31 U/L [facility] Total Protein 7.0 6.5 - 8.0 g/dL [facility] Albumin Level 4.1 3.5 - 5.0 g/dL [facility] Alkaline Phosphatase 64 39 - 117 U/L [facility] 06/18/2024 8:29 AM EDT 06/18/2024 8:32 AM EDT us Generic External Data Provider LAB BLOOD ORDERAB LES Final Result [facility] [address] [place] [phone] * XR Knee 4+ Views Right (05/31/2024 2:29 PM EDT) Anatomical Region Laterality Modality Lower Extremities, Knee Right Radiogra phic Imaging 05/31/2024 2:29 PM EDT Narrative 05/31/2024 3:04 PM EDT ?[facility] ?[address] ?[place] [address] ?XRay Report ? Signed ? Patient: Abrams James,Corina ?MR#: [id number] ?? [id number] ? : 1975 ?Acct:[id number] ? Age/Sex: 49 / F ?ADM Date: 05/31/24 ? Loc: HO.HHCX ? Attending Dr: Tata Fink ? Ordering Physician: Tata Fink ?? Date of Service: 05/31/24 ?? Procedure(s): XR knee RT 4V ?? Accession Number(s): [id number] ? cc: Tata Fink ? EXAMINATION: ?? [...] DD/ 1429 ? TD/TT: 05/31/24 1455 ? Technical Spec: ? Procedure Note Carli Mesa - 05/31/[address] [address] XRay Report Signed Patient: Yarelis Nielsen#: [id number] : 1975Acct:[id number] Age/Sex: 49 / FADM Date: 05/31/24 Loc: HO.HHCX Attending Dr: Tata Fink Ordering Physician: Tata Fnik Date of Service: 05/31/24 Procedure(s): XR knee RT 4V Accession Number(s): [id number] cc: Tata Fink EXAMINATION: XR KNEE, RIGHT [...] 05/31/24 1501 DD/ 1429 TD/TT: 05/31/24 1455 Technical Spec: Tata Fink ANALYTICAL LAB TECHNICIAN IMG XR PROCEDURES Final Result * XR Knee 4+ Views Left (05/31/2024 2:29 PM EDT) Anatomical Region Laterality Modality Lower Extremities, Knee Left Radiogra phic Imaging 05/31/2024 2:29 PM EDT Narrative 05/31/2024 3:05 PM EDT ?[facility] ?[address] ?[place] [address] ?XRay Report ? Signed ? Patient: Jose Alberto James,Corina ?MR#: [id number] ?? [id number] ? : 1975 ?Acct:[id number] ? Age/Sex: 49 / F ?ADM Date: 03/10/25 ? Loc: HO.HHCX ? Attending : Tata Fink ? Ordering Physician: Appram,Tata ?? Date of Service: 05/31/24 ?? Procedure(s): XR knee LT 4V ?? Accession Number(s): [id number] ? cc: Tata Fink ? EXAMINATION: ?? [...] DD/ 1429 ? TD/TT: 05/31/24 1455 ? Technical Spec: ? Procedure Note Carli Mesa - 05/31/[address] [address] XRay Report Signed Patient: Yarelis Nielsen#: [id number] : 1975Acct:[id number] Age/Sex: 49 / FADM Date: 05/31/24 Loc: HO.HHCX Attending Dr: Tata Fink Ordering Physician: Tata Fink Date of Service: 05/31/24 Procedure(s): XR knee LT 4V Accession Number(s): [id number] cc: Tata Fink EXAMINATION: XR KNEE, LEFT [...] 05/31/24 1502 DD/ 1429 TD/TT: 05/31/24 1455 Technical Spec: us Tata Appram ANALYTICAL LAB TECHNICIAN IMG XR PROCEDURES Final Result * TSH with Reflex to Free T4 (05/05/2024 11:23 AM EST) TSH reflex Free T4 0.78 0.32 - 4.0 uIU/mL [facility] 05/05/2024 11:2 3 AM EST 05/05/2024 11:23 AM EST us Generic External Data Provider LAB BLOOD ORDERAB LES Final Result Performing Organization Address City/State/[facility] Co de Phone Number [facility] [address] [place] [phone] * (ABNORMAL) CBC (05/05/2024 11:23 AM EST) White Blood Count 5.5 4.8 - 10.8 X10*3/uL [facility] Red Blood Count 3.92(L) 4.20 - 5.50 X10*6/uL [facility] Hemoglobin 12.0 12.0 - 16.0 g/dl [facility] Hematocrit 36.3(L) 37.0 - 47.0 % [facility] Mean Corpuscular Volume 92.6 80.0 - 98.0 fL [facility] Mean Corpuscular Hemoglobin 30.6 27.0 - 33.0 pg [facility] Mean Corpuscular HGB Conc 33.1 31.0 - 35.0 g/dl [facility] Red Cell Distribution Width 12.3 11.0 - 16.0 % [facility] Platelet Count 264 160 - 400 X10*3/uL [facility] Mean Platelet Volume 11.1 9.4 - 12.3 fL [facility] NRBC Pct Auto 0.0 0.0 - 0.2 /100WBC [facility] NRBC Abs Auto 0.000 0.0 - 0.012 X10*3/uL [facility] 05/05/2024 11:2 3 AM EST 05/05/2024 11:23 AM EST Generic External Data Provider LAB BLOOD ORDERAB LES Final Result Performing Organization Address [facility] Co de Phone Number [facility] [address] [place] [phone] * hCG, Total, Quantitative (05/05/2024 11:23 AM EST) HCG Quantitative <2 mIU/mL [facility] Comment:Weeks post LMP Appro ximate hCG(Last Menstrual Period) Range (mIU/ml)3 - 4 weeks 9 - 1304 - 5 weeks 75 - 2,6005 - 6 weeks 850 - 20,8006 - 7 weeks 4000 - 100,2007 - 12 weeks 11,500 - 289,97800 - 16 weeks 18,300 - 137,38896 - 29 weeks (2nd trimester) 1,400 - 53,43824 - 41 weeks (3rd trimester) 940 - [...] LES Final Result Performing Organization Address [facility] Co de Phone Number [facility] [address] [place] [phone] * LH (05/05/2024 11:23 AM EST) Lutenizing Hormone 7.8 mIU/mL [facility] Comment:Reference Range Foll icular Phase 1.9-12.5 Mid-Cycle Peak 8.7-76.3 Luteal Phase 0.5-16.9 Postmenopausal 10.0-54.7THIS TEST WAS PERFORMED AT:[employer] [address] [phone] OLIVAS MD 05/05/2024 11:2 3 AM EST 05/05/2024 11:23 AM EST Generic External Data Provider LAB BLOOD ORDERAB LES Final Result Performing Organization Address [facility] de Phone Number [facility] [address] [place] [phone] * FSH (05/05/2024 11:23 AM EST) [facility] Follicle Stimulating Hormone 14.4 mIU/mL [facility] Comment:Reference Range Foll icular Phase 2.5-10.2 Mid-cycle Peak 3.1-17.7 Luteal Phase 1.5- 9.1 Postmenopausal 23.0-116.3THIS TEST WAS PERFORMED AT:[employer] [address] [phone] OLIVAS MD 05/05/2024 11:2 3 AM EST 05/05/2024 11:23 AM EST Generic External Data Provider LAB BLOOD ORDERAB LES Final Result Performing Organization Address [facility] Co de Phone Number [facility] [address] [place] [phone] * Chlamydia/N. Gonorrhoeae RNA, TMA, Urogenitial (05/05/2024 11:19 AM EST) Pathologist [facility] CT PCR NOT DETECTED Not Detect. [facility] Comment:A not detected test [...] psychologicalconsequences. NG PCR NOT DETECTED Not Detect. [facility] Comment:A not detected test [...] AM EST 05/05/2024 11:56 AM EST Narrative [facility] - 05/06/2024 7:21 AM EST Vaginal us Generic External Data Provider LAB MICROBIOLOGY - GENERAL ORDERABLES Final Result [facility] [address] [place] [phone] * HPV DNA, Low/High Risk (05/05/2024 10:22 AM EST) HPV High Risk Negative Negative [facility] HPV Genotype 16 Negative Negative [facility] HPV Genotype 18 Negative Negative [facility] Comment:HPV testing performe d at [facility] (CLIA#[id number]), [address] [place] [phone].Testing for HPV was performed using the Jon [...] ORDERAB LES Final Result Performing Organization Address City/State/[facility] de Phone Number [facility] [address] [place] [phone] * Pap Smear (05/05/2024 10:22 AM EST) 05/05/2024 10:2 2 AM EST 05/06/2024 6:10 AM EST Narrative [facility] - 05/11/2024 9:16 AM EST ----- ------- Name: Corina Nielsen ?Age/Sex: 49/F ? : 1975 Unit#: [id number] ?? Attend Dr: Pj Posadas MD ?Re05/05/24 ?Status: DEP REF ? Location: HO.LNP ?Disch: ? ----- ------- SPEC : [id number] ? RECD: 05/06/24 ? STATUS: ??SOUT ? REQ NUM: [id number] ? LAURA: 05/05/24 ? SUBM DR: Pj [...] Copies To: ?? Marian Crook MD ?? [facility] ?? [address] [facility] ?? [place] [address] ?? [phone] ?? Pj Posadas MD ?? [facility] Women[facility] ?? [address] [facility] [address] ?? [place] [address] ?? [phone] ----- ------- Signed (signature on file) SCARLET Hernandez (ASCP) 05/11/24 0916 ? ----- ------- ? END OF REPORT ? us Generic External Data Provider LAB CYTOLOGY SHONA VIRAMONTES Final Result [facility] [address] [place] [phone] * (ABNORMAL) Urinalysis, Complete, with Reflex to Culture (04/27/2024 12:31 AM EST) Color Urine Yellow [facility] Appearance Urine Clear [facility] PH 5.5 5.0 - 9.0 [facility] Glucose Urine UA Negative Negative mg/dL [facility] Urine Blood Moderate (2+)(A) Negative [facility] Specific [place] - Urine 1.020 1.005 - 1.025 [facility] Urine Protein Negative Neg-Trace mg/dL [facility] Urine Ketones Negative Negative mg/dL [facility] Nitrite Urine Negative Negative [facility] Leukocyte Esterase Urine Negative Negative [facility] RBC Urine >20(A) 0 - 2 /HPF [facility] Urine WBC 0-5 0 - 5 /HPF [facility] Urine Squamous Epithelial Cell 0-2 0 - 2 /HPF [facility] Urine Bacteria None Seen None Seen [facility] Hyaline Casts, Urine 0-2 0 - 2 /LPF [facility] 04/27/2024 12:3 1 AM EST 04/27/2024 12:34 AM EST Narrative [facility] - 04/27/2024 12:42 AM EST Urine, Clean Catch Generic External Data Provider LAB URINE ORDERAB LES Final Result Performing Organization Address City/[facility]/ZIP Co de Phone Number [facility] [address] [place] [phone] * Partial Thromboplastin Time, Activated (APTT) (04/26/2024 4:47 PM EST) [facility] Partial Thromboplastin Time 31.7 26.0 - 36.8 SEC [facility] Comment:For information rega rding the monitoring of direct thrombininhibitors, please refer to Pharmacy. 04/26/2024 4:47 PM EST 04/26/2024 4:50 PM EST Generic External Data Provider LAB BLOOD ORDERAB LES Final Result Performing Organization Address [facility]/ZIP Co de Phone Number [facility] [address] [place] [phone] * Hepatitis C Ab (03/27/2024 10:19 AM EST) [facility] Hepatitis C Antibody Nonreactive Nonreactive [facility] Comment:Antibodies to HCV no t detected; does not exclude early acuteHCV infection. 03/27/2024 10:1 9 AM EST 03/27/2024 10:19 AM EST us Generic External Data Provider LAB BLOOD ORDERAB LES Final Result Performing Organization Address City/[facility]/ZIP Co de Phone Number [facility] [address] [place] [phone] * HIV-1/2 Antigen and Antibodies, Fourth Generation, with Reflexes (03/27/2024 10:19 AM EST) [facility] HIV AB/AG Nonreactive Nonreactive [facility] Comment:HIV-1 p24 Ag and/or HIV-1/HIV-2 Ab not detected.A test result that is nonreactive does not exclude thepossibility of exposure to or infection with HIV-1 and/orHIV-2. Nonreactive results in this assay for individualswith prior exposure to HIV-1 and/or HIV-2 may be due toantigen and antibody levels that are below the limit ofdetection of this assay.The [employer] HIV Ag/Ab Combo assay result andsupplemental assay results should be interpreted inconjunction with the patient's clinical presentation,history and other laboratory results. If the results areinconsistent with clinical evidence, additional testing issuggested to confirm the result. 03/27/2024 10:1 9 AM EST 03/27/2024 10:19 AM EST us Generic External Data Provider LAB BLOOD ORDERAB LES Final Result Performing Organization Address City/[facility]/ZIP Co de Phone Number [facility] [address] [place] [phone] * Cologuard?? colon cancer screening (02/02/2024 9:15 AM EST) [facility] Cologuard Result Negative Negative 02/08/20 2:05 AM EST [employer] (CLIA #:[id number]) Comment: NEGATIVE TEST RESULT. A negative Cologuard [...] cancer. ??Following a negative Cologuard result, the [place] [employer] and U.S. Multi-Society Task Force screening guidelines recommend a Cologuard re-screening interval of 3 years. References: [place] [employer] Guideline for Colorectal Cancer Screening: https://www.cancer.org/cancer/ncesh-almbmq-xxcyet/xgsylywox-ptqwfadui-xdotvop/ac s-rec ommendations.html.; Hector ABERNATHY, Julio Cesar PEÑA, Janet TroncosoK, Colorectal Cancer Screening: Recommendations for Physicians and Patients from the U.S. Multi-Society Task Force on Colorectal Cancer Screening , Am J Gastroenterology 2017; 112:5043-2834. TEST DESCRIPTION: Composite algorithmic analysis of stool [...] Gonzalez et al, N Engl J Med 2014;370(14):8314-0565.) Cologuard may produce a false negative or false positive result (no colorectal cancer or precancerous polyp present at colonoscopy follow up). A negative Cologuard test result does not guarantee the absence of CRC or advanced adenoma (pre-cancer). The current Cologuard screening interval is every 3 years. ([place] [employer] and U.S. Multi-Society Task Force). Cologuard performance data in a 10,000 patient pivotal study using colonoscopy as the reference method can be accessed at the following location: www.[employer]/results. Additional description of the Cologuard test process, warnings and precautions can be found at www.[employer].com. Stool specimen (specimen) Rectal contents / Unknown 02/02/2024 9:15 AM EST 02/03/2024 10:52 AM EST Marian Crook MD LAB MOLECULAR DIAGNOSTIC S ORDERABLES Final Result [employer] (CLIA #:[id number]) [place] [place] [address] [address], * BI Mammogram Screening Tomosynthesis Bilateral (12/05/2023 3:30 PM EDT) Anatomical Region Laterality Modality Breast Bilateral Mammography 12/05/2023 3:30 PM EDT Narrative 12/19/2023 8:58 AM EDT ? [facility] ? [address] ?[place] [address] ? Mammography Report ? Signed ? Patient: Abrams James,Corina ?MR#: [id number] ?? [id number] ? : 1975 ?Acct:[id number] ? Age/Sex: 48 / F ?ADM Date: 12/05/23 ? Loc: HO.MAMMO ? Attending Dr: Marian Crook MD ? Ordering Physician: Marian Crook MD ?Results: 1Ne ?? gative ? Date of Service: 12/05/23 ?Follow Up: 1 Year From Orig ?? inal Mammogram ? Procedure(s): MM tomosynthesis screening BI ?? Accession Number(s): [id number] ? cc: Marian Crook MD ? EXAMINATION: [...] DD/ 1530 ? TD/TT: 12/05/23 1540 ? Technical Spec: ? Procedure Note [place], Image - 12/19/2023 [facility] [address] [place] [address] Mammography Report Signed Patient: Baljit NielsenR#: [id number] : 1975Acct:[id number] Age/Sex: 48 / FADM Date: 12/05/23 Loc: HO.MAMMO Attending Dr: Marian Crook MD Ordering Physician: Marian Crook MDResults: 1Ne gative Date of Service: 12/05/23Follow Up: 1 Year From Orig inal Mammogram Procedure(s): MM tomosynthesis screening BI Accession Number(s): [id number] cc: Marian Crook MD EXAMINATION: MM SCREENING [...] 12/19/23 0855 DD/ 1530 TD/TT: 12/05/23 1540 Technical Spec: Marian Crook MD IMG BI PROCEDURES Final Result from Last 3 Months or Most Recently Relevant to Health Maintenance Insurance [id number] * Guarantor: Corina Nielsen Account Type Relation to Patient Date of Phone Billing Address Personal/Family Self [place], [place] Care Teams 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
== END 2024-07-21 14:15 | disposition home or self-care (01) ==
LOC: HO.HOS 13:51
PROVIDERS: Visit Provider Orthopaedic Surgery
DX: S83.242A Other tear of medial meniscus, current injury, left knee, initial encounter (principal); M25.562 Pain in left knee; M25.561 Pain in right knee
CPT/HCPCS: 20610; 99203

== ENCOUNTER → 2024-07-21 13:50 | Outpatient (BNVA) | payer OTHER, SELFPAY | PROVIDERS: Visit Provider Orthopaedic Surgery | DX: S83.242A Other tear of medial meniscus, current injury, left knee, initial encounter (principal); M25.561 Pain in right knee; X58.XXXA Exposure to other specified factors, initial encounter; Y93.9 Activity, unspecified; Y92.9 Unspecified place or not applicable; Y99.9 Unspecified external cause status | CPT/HCPCS: 20610; 99202; J1010; J2003 ==

== ENCOUNTER 2024-07-29 12:56 | Outpatient (AMB) | payer OTHER, SELFPAY ==
--- NOTE | 2024-07-29 12:57 | A.OFFVIS_ITS ---
Intake Visit Reasons: EMB results Allergies No Known Allergies [No Known Allergies*] Allergy (Verified 06/25/24 13:57) HPI Comments Details: The patient scheduled a telehealth visit for follow-up to discuss the results of her abnormal uterine bleeding workup and options of treatment. The following workup was done.: H&H= 13.5/40.2 TSH, hCG, GC and chlamydia were negative. FSH/LH= 14.4/7.8 Endometrial biopsy pathology showed the following: Endometrium, biopsy: - Mixed pattern secretory and inactive endometrium with breakdown; no atypia or hyperplasia identified. - Few fragments of endocervical and squamous epithelium within normal limits; mucoinflammatory material; no atypia identifie Co testing was done was negative. Mammogram was BI-RADS 1 Pelvic ultrasound showed the following: Uterus: The uterus is anteverted and measures 9 x 5 x 7 cm. Volume is 164 cc. The cervix measures 3 cm. The double wall endometrial thickness is 2 mm. There is a 5 cm heterogeneous soft tissue lesion in the anterior body of the uterus. There is a 1.2 cm heterogeneous soft tissue lesion in the posterior body of the myometrium. Adnexa: Both ovaries are visualized. There is normal color flow to the adnexa. There is no ovarian torsion. There is no pelvic ascites or fluid collection. Right ovary measures 3 x 1 x 3 cm. Volume is 6 cc. There is a 2.4 cm anechoic lesion without flow on color Doppler interrogation. Left ovary measures 4 x 3 x 4 cm. Volume is 22 cc. There is a 2.4 cm anechoic structure without flow on color Doppler interrogation. [facility] Medical History delivery delivered Depression Anal fissure Hemorrhoids Chronic RLQ pain Polyuria Dizziness FILIBERTO (obstructive sleep apnea) Moderate persistent asthma in adult without complication Chronic low back pain Iron deficiency Arthritis History of asthma Surgical History Hx of colonoscopy History of esophagogastroduodenoscopy (EGD) S/P laparoscopic sleeve gastrectomy H/O abdominoplasty Family History Mother History of hypertension Arthritis Glaucoma Father Heart problem History of hypertension Brother Heart problem History of hypertension Sister History of hypertension Brother No problems noted. Brother No problems noted. Brother No problems noted. Brother No problems noted. Sister Ovarian cancer Sister No problems noted. Sister No problems noted. 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 Female Reproductive History Menstrual Age of Menarche: 14 Review of Systems Const All systems reviewed & are unremarkable except as noted in HPI and below Reports as per HPI and Reports no additional complaints GI Reports no additional complaints Reports no additional complaints Telehealth Telehealth Telehealth Platform: Telephone Location of provider rendering services: practice address Location of patient: address on file Patient Identification confirmed using: Name, : Yes Telehealth method: video Patient verbally consented to treatment: Yes Patient verbally consented to billing insurance company: Yes Patient informed of any privacy concerns related to visit: Yes Minutes spent on Phone/Video with Pt.: 10 Assessment & Plan Assessment & Plan (1) Abnormal uterine bleeding (AUB): Code(s): N93.9 - Abnormal uterine and vaginal bleeding, unspecified Category: Medical Plan: Discussed with the patient the results of the work up done and options of treatment including Lysteda, BCP's, Mirena IUD, uterine artery embolization, endometrial ablation and hysterectomy. All pros, cons, risks and benefits if each option was discussed with the patient and the patient decided to proceed with UA E, will refer to Interventional Radiology for UAE. (2) Uterine fibroid: Code(s): D25.9 - Leiomyoma of uterus, unspecified Category: Medical Plan: Discussed with the patient the findings on pelvic ultrasound & the risk of myosarcoma; in addition reviewed with the patient that malignancy and pre malignancy cannot be ruled out without hysterectomy for pathological evaluation ; furthermore, explained to the patient the limitation of pelvic ultrasound and endometrial biopsy in the setting. Discussed with the patient the typical symptoms that are caused by myomas including but not limited to pelvic pain, pressure symptoms, abnormal uterine bleeding. In addition discussed with the patient options of treatment for myomas including: Serial ultrasounds periodically to follow-up on the size of the myoma while targeting the treatment against fibroids related symptoms ( control pills, Mirena IUD, progesterone treatment, GnRH agonist/antagonist, uterine artery embolization or endometrial ablation) versus surgical treatment including hysterectomy and or myomectomy. All pros and cons, risks and benefits of all options were discussed with the patient. The patient understands that delay in surgical treatment in case of myosarcoma can affect her prognosis, after further discussion, the patient decided to proceed with uterine artery embolization, will refer to IR for UAE consult Instructed the patient to call our office back in case a referral appointment is not scheduled, missed or canceled so that we will assist on rescheduling another appointment, the patient verbalized understanding agreed with the plan. I spent a total of 20 minutes reviewing the chart, talking to the patient via video and documenting in the medical record. Coding Level of Care Code Tele Est Pt Level 3 (70895) Diagnoses Abnormal uterine bleeding (AUB) N93.9 Uterine fibroid D25.9
--- OUTSIDE RECORDS SUMMARY | 2024-07-29 14:03 | XMS_ITS | Encounter Summary ---
Author Organization [employer] Address [address] [place] [address] [address] [place] [address] Care Team Providers Care Shoe Clerk Name Role Phone [facility] Primary Care Provider [phone] Marian Crook MD Primary Care Provider + Reason for Visit * Reason Onset Date Comments Nurse Triage 11/18/2022 Encounter Details Date Type Department Care Team ([facility] st Contact Info) Description 11/18/2022 Telephone [facility] [address] [place] [address] [facility] [address] [place] [address] Nurse Triage Social History Tobacco Use Types [...] Description 10/12/2024 3:30 PM EDT Office Visit [facility] [address] [place] [phone] Marian Crook MD [address] [place] [address] documented as of this encounter Visit Diagnoses Not on filedocumented in this encounter Additional Health Concerns Assessment Noted Time PHQ-9 Depression Total Score: 16 06/18/ 023 3:25 PM EDT documented as of this encounter Care Teams Shoe Clerk Relationship Specialty Start Date End Date Alisha Hook FNP [address] [place] [address] PCP - General Family Medicine 11/14/21 09/11/23 Marian Crook MD [address] [place] [phone] PCP - General Internal Medicine 09/12/23 documented as of this encounter
--- OUTSIDE RECORDS SUMMARY | 2024-07-29 14:03 | XMS_ITS | Encounter Summary ---
Author Organization [employer] Address [address] [facility] [address] [place] [address] Care Team Providers Care Window Installation Subcontractor Name Role Phone Marian Crook MD Primary Care Provider + Reason for Visit * Reason Onset Date Comments Med Refill 03/25/2024 Encounter Details Date Type Department Care Team (Late st Contact Info) Description 03/25/2024 Refill [facility] [address] [place] [address] Claritza Leonard DO [address] [place] [address] Social History Tobacco Use Types Packs/Day Years [...] Office Visit [facility] [address] [place] [address] Marian Crook MD [address] [place] [address] documented as of this encounter Visit Diagnoses Not on filedocumented in this encounter Additional Health Concerns Assessment Noted Time PHQ-9 Depression Total Score: 22 024 2:02 PM EDT documented as of this encounter Care Teams Window Installation Subcontractor Relationship Specialty Start Date End Date Marian Crook MD [address] [place], [place] [phone] PCP - General Internal Medicine 09/12/23 documented as of this encounter
--- OUTSIDE RECORDS SUMMARY | 2024-07-29 14:03 | XMS_ITS | Clinical Summary ---
Author Organization [employer] Address [address] [address] [address] [place] [address] Care Team Providers Care Adjunct Art History Instructor Name Role Phone Marian Crook MD [...] Active Problems Problem Noted Date Diagnosed Date Palpitations 07/23/2024 Bright red blood per rectum 12/23/2023 Assessment [...] referred today for chronicity of symptoms Dizziness on standing 09/12/2023 Assessment & Plan (07/02/2024 4:02 PM EDT): So far has been within normal limits except hemoglobin that has dropped 2 points within 6 months. This could be related to patient's menorrhagia(she is followed by [facility]) + significant diuresis. Patient will have increase [...] told her to reach out to legal contracts specialist to help her write a letter so that housing give her some more time to get the letter from provider. She will res tart Effexor for anxiety and fu with me in 6m Encounters Date Type Department Care Team Description 07/28/2024 Refill [facility] MEDICINE [address] [place] [phone] Claritza Leonard DO 07/07/2024 Orders Only GENERIC EXTERNAL DATA DEPARTMENT Provider, Generic External Data 07/02/2024 11:45 AM EDT Office Visit [address] [address] Marian Crook MD Polyuria (Primary Dx); Dizziness; Chronic low back pain without sciatica, unspecified back pain laterality; Dizziness on standing; Palpitations 07/02/2024 Travel 06/30/[address] [address] Marian Crook MD Chart prep 06/25/2024 Orders Only GENERIC EXTERNAL DATA DEPARTMENT Provider, Generic External Data 06/24/2024 Orders Only [facility] MEDICINE [address] [place] [phone] Marian Crook MD Bilateral primary osteoarthritis of knee (Primary Dx) 06/23/2024 Patient Outreach [address] [address] Marian Crook MD Pre-visit Planning (SDOH screening negative and tobacco screening negative) 06/18/2024 Orders Only GENERIC EXTERNAL DATA DEPARTMENT Provider, Generic External Data 06/17/2024 Refill [facility] MEDICINE [address] [place] [phone] Marian Crook MD 06/05/2024 Refill [facility] MEDICINE [address] [place] [phone] Marian Crook MD 06/05/2024 Refill [facility] MEDICINE [address] [place] [phone] Claritza Leonard DO 06/04/2024 Population Health Risk Score Community [facility] (C3) Department [address] [phone] Provider, Population Health Generic 06/02/2024 Telephone [facility] MEDICINE [address] [place] [address] Marian Crook MD Med Refill 06/02/2024 Telephone [facility] MEDICINE [address] [place] [address] Marian Crook MD Referral 06/02/2024 Refill [facility] MEDICINE [address] [place], [place] [phone] Marian Crook MD 05/28/2024 3:15 PM EST Office Visit [facility] MEDICINE [address] [place] [address] Tata Fink NP Chronic pain of both knees (Primary Dx) 05/26/2024 Telephone [facility] MEDICINE [address] [place] [address] Marian Crook MD Nurse Triage 05/13/2024 Refill [facility] MEDICINE [address] [place] [address] Marian Crook MD Moderate persistent asthma without complication 05/07/2024 Refill [facility] MEDICINE [address], [place] [phone] Marian Crook MD 05/05/2024 Orders Only GENERIC [...] Description 10/12/2024 3:30 PM EDT Office Visit [facility] MEDICINE [address] [place], [place] [phone] Marian Crook MD [address] [place] [address] Health Maintenance Due Date Last Done Comments [...] DNA, LOW/HIGH RISK Routine 10:22 AM EST HEPATITIS C ANTIBODY Routine 03/27/2024 [...] 3:35 PM EDT 07/08/2024 8:15 AM EDT [facility] LABS - 07/09/2024 3:29 PM EDT ----- ------- Name: Corina Nielsen ?Age/Sex: 49/F ? : 1975 Unit#: [id number] ?? Attend Dr: Pj Posadas MD ?Re07/07/24 ?Status: DEP REF ? Location: HO.LNP ?Disch: ? ----- ------- SPEC : [id number] ? RECD: 07/08/24 ? STATUS: ??SOUT ? REQ NUM: [id number] ? LAURA: 07/07/24 ? SUBM DR: Pj Posadas MD ? [...] Copies To: ?? Marian Crook MD ?? [facility] ?? [address] ?? [place] [address] ?? [phone] ?? Pj Posadas MD ?? [facility] ?? [address] ?? [place] [address] ?? [phone] ? CONTINUED ON NEXT PAGE ----- ------- Name: Corina Nielsen ?Age/Sex: 49/F ? : 1975 Unit#: [id number] ?? Attend Dr: Pj Posadas MD ?Re07/07/24 ?Status: DEP REF ? Location: HO.LNP ?Disch: ? ----- ------- SPEC : [id number] ? RECD: 07/08/24 ? STATUS: ??SOUT ? REQ NUM: [id number] ? LAURA: 07/07/24-074 ? SUBM DR: Pj Posadas MD ? ENTERED: ??07/08/24 ?SP TYPE: Surgical ? OTHR DR: Marian Crook MD ? ORDERED: ??HE Stain/2, Gross Micro L4 ? ----- ------- Signed (signature on file) Maciej Elmore MD 07/09/24 2189 ? ----- ------- ? END OF REPORT ? Generic External Data Provider LAB BLOOD ORDERAB LES Final Result Performing Organization Address City/[facility]/ZIP Co de Phone Number [facility]S [address] [place] [address] [phone] * POCT Urinalysis (07/02/2024 12:42 PM [...] HIGH SENSITIVITY <2.7 <3.5 - 17.0 ng/L [facility] Comment:The Thomason high sens itivity Troponin-I results should beused in conjunction with other diagnostic information suchas ECG, clinical observations and information, and patientsymptoms to aid in the diagnosis of IA. 06/18/2024 11:0 8 AM EDT 06/18/2024 11:15 AM EDT Generic External Data Provider LAB BLOOD ORDERAB LES Final Result Performing Organization Address City/[facility]/ZIP Co de Phone Number [facility] [address] [place] [address] [phone] * XR Chest 1 View (06/18/2024 9:10 AM EDT) Anatomical Region Laterality Modality Chest Radiographic Irais ging 06/18/2024 9:10 AM EDT Narrative 06/18/2024 9:37 AM EDT ? [facility] ?[address] ?[place] [address] ?XRay Report ? Signed ? Patient: Abrams James,Corina ?MR#: [id number] ?? [id number] ? : 1975 ?Acct:[id number] ? Age/Sex: 49 / F ?ADM Date: 06/18/24 ? Loc: HO.ED ? Attending Dr: ? Ordering Physician: Lisa Nguyen DO ?? Date of Service: 06/18/24 ?? Procedure(s): XR chest 1V ?? Accession Number(s): [id number] ? cc: Marian Crook MD; Lisa Nguyen [...] ?06/18/24 0934 ? DD/ 0910 ? TD/TT: 06/18/2425 ? Hydrographer: ? Procedure Note Carli Mesa - 06/18/[address] [address] XRay Report Signed Patient: Yarelis Nielsen#: [id number] : 1975Acct:[id number] Age/Sex: 49 / FADM Date: 06/18/24 Loc: HO.ED Attending Dr: Ordering Physician: Lisa Nguyen DO Date of Service: 06/18/24 Procedure(s): XR chest 1V Accession Number(s): [id number] cc: Marian Crook MD; Lisa Nguyen DO [...] 06/18/2024 09:34 AM EDT RP Dictated By: Doiran Graham MD Signed By: <Electronically signed by Dorian Graham MD in OV> 06/18/2434 DD/ 0910 TD/TT: 06/18/24 09 Hydrographer: [facility] External Provider IMG XR PROCEDURES Final Result * US VENOUS DUPLEX LE LT (06/18/2024 9:09 AM EDT) Anatomical Region Laterality Modality Abdomen Ultrasound 06/18/2024 9:09 AM EDT Narrative 06/18/2024 9:20 AM EDT ? [facility] ?[address] ?[place] [address] ? Ultrasound Report ? Signed ? Patient: Abrams James,Corina ?MR#: [id number] ?? [id number] ? : 1975 ?Acct:[id number] ? Age/Sex: 49 / F ?ADM Date: 03/28/25 ? Loc: HO.ED ? Attending Dr: ? Ordering Physician: Lisa Nguyen DO ?? Date of Service: 06/18/24 ?? Procedure(s): US venous duplex LE LT ?? Accession Number(s): [id number] ? cc: Marian Crook MD; Lisa Nguyen [...] DD/ 0909 ? TD/TT: 06/18/24 0914 ? Hydrographer: ? Procedure Note Bonita, Image - 06/18/2024 [place] [address] Ultrasound Report Signed Patient: Yarelis Nielsen#: [id number] : 1975Acct:[id number] Age/Sex: 49 / FADM Date: 06/18/24 Loc: HO.ED Attending Dr: Ordering Physician: Lisa Nguyen DO Date of Service: 06/18/24 Procedure(s): US venous duplex LE LT Accession Number(s): [id number] cc: Marian Crook MD; Lisa Nguyen DO [...] Valentino Guerra MD 06/18/2024 09:18 AM EDT RP Dictated By: Valentino Cotter MD Signed By: <Electronically signed by Valentino Jones MDin OV> 06/18/24917 DD/ 8 TD/TT: 06/18/24913 Hydrographer: [facility] External Provider IMG US PROCEDURES Final Result * D Dimer High Sensitivity (06/18/2024 8:29 AM EDT) [facility] D Dimer High Sensitivity <150 NG/ML [facility] Comment:D-DIMER HS REFERENCE RANGENote: Our [...] Provider LAB BLOOD ORDERAB LES Final Result [facility] [address] [place] [phone] * (ABNORMAL) CBC auto differential (06/18/2024 8:29 AM EDT) [facility] White Blood Count 6.1 4.8 - 10.8 X10*3/uL [facility] Red Blood Count 4.36 4.20 - 5.50 X10*6/uL [facility] Hemoglobin 13.5 12.0 - 16.0 g/dl [facility] Hematocrit 40.2 37.0 - 47.0 % [facility] Mean Corpuscular Volume 92.2 80.0 - 98.0 fL [facility] Mean Corpuscular Hemoglobin 31.0 27.0 - 33.0 pg [facility] Mean Corpuscular HGB Conc 33.6 31.0 - 35.0 g/dl [facility] Red Cell Distribution Width 13.5 11.0 - 16.0 % [facility] Platelet Count 192 160 - 400 X10*3/uL [facility] Mean Platelet Volume 10.5 9.4 - 12.3 fL [facility] Neutrophils Percent Auto 76.0(H) 45 - 73 % [facility] Imm Gran Pct Auto 0.3 0.0 - 0.4 % [facility] Lymphocytes Percent Auto 16.3(L) 20 - 40 % [facility] Monocytes Percent Auto 6.2 2 - 11 % [facility] Eosinophils Percent Auto 0.7 0 - 4 % [facility] Basophils Percent Auto 0.5 0 - 2 % [facility] NRBC Pct Auto 0.0 0.0 - 0.2 /100WBC [facility] Neutrophils Absolute Auto 4.7 2.0 - 8.3 x10*3/uL [facility] Imm Gran Abs Auto 0.02 0.00 - 0.03 X10*3/uL [facility] Lymphocytes Absolute Auto 1.0(L) 1.2 - 4.9 X10*3/uL [facility] Monocytes Absolute Auto 0.4 0.1 - 1.2 X10*3/uL [facility] Eosinophils Absolute Auto 0.0 0.0 - 0.4 X10*3/uL [facility] Basophils Absolute Auto 0.0 0.0 - 0.2 X10*3/uL [facility] NRBC Abs Auto 0.000 0.0 - 0.012 X10*3/uL [facility] 06/18/2024 8:29 AM EDT 06/18/2024 8:32 AM EDT Generic External Data Provider LAB BLOOD ORDERAB LES Final Result Performing Organization Address [facility] Co de Phone Number [facility] [address] [place] [phone] * Prothrombin Time-INR (06/18/2024 8:29 AM EDT) Prothrombin Time 12.3 10.9 - 12.4 SEC [facility] INTERNATIONAL NORM RATIO 1.1 0.9 - 1.1 [facility] Comment:INTERNATIONAL NORMAL IZED RATIO (INR) [...] ORDERAB LES Final Result Performing Organization Address [facility] Co de Phone Number [facility] [address] [place] [phone] * Magnesium (06/18/2024 8:29 AM EDT) Pathologist [facility] Magnesium 1.9 1.6 - 2.6 mg/dL [facility] 06/18/2024 8:29 AM EDT 06/18/2024 8:32 AM EDT Generic External Data Provider LAB BLOOD ORDERAB LES Final Result Performing Organization Address [facility] Co de Phone Number [facility] [address] [place] [phone] * (ABNORMAL) Comprehensive Metabolic Panel (06/18/2024 8:29 AM EDT) Sodium 138 135 - 145 mmol/L [facility] Potassium 3.9 3.3 - 5.1 mmol/L [facility] Chloride 112(H) 96 - 108 mmol/L [facility] Carbon Dioxide 21(L) 22 - 29 mmol/L [facility] Anion Gap 9(L) 12 - 20 [facility] Urea Nitrogen (BUN) 15 9 - 16 mg/dL [facility] Creatinine, Serum 0.70 0.5 - 1.4 mg/dL [facility] Creatinine Clr Calc Pharmacy 95.9 [facility] Comment:Provided height and weight: 160.02 cm,77.7 kg.eGFR (calculated from the MDRD study equation) and eCrCl(calculated from the Cockcroft-Gault equation) are based ondifferent parameters and may not yield comparable results.If eCrCl result is absurd, please check patient'sheight/weight. Estimated Glomerular Filt Rate >60 [facility] Comment:Chronic Kidney Disea se: Estimated GFR < 60 mL/min/1.61v2Izqgbk Kidney Disease: Estimated GFR < 15 mL/min/1.73m2 Glucose 93 60 - 115 mg/dL [facility] Calcium 8.9 8.4 - 10.2 mg/dL [facility] Bilirubin, Total 0.5 0.0 - 1.0 mg/dL [facility] Aspartate Amino Transferase 21 5 - 31 U/L [facility] Alanine Aminotransferase 16 0 - 31 U/L [facility] Total Protein 7.0 6.5 - 8.0 g/dL [facility] Albumin Level 4.1 3.5 - 5.0 g/dL [facility] Alkaline Phosphatase 64 39 - 117 U/L [facility] 06/18/2024 8:29 AM EDT 06/18/2024 8:32 AM EDT us Generic External Data Provider LAB BLOOD ORDERAB LES Final Result [facility] [address] [place], [place] [phone] * XR Knee 4+ Views Right (05/31/2024 2:29 PM EDT) Anatomical Region Laterality Modality Lower Extremities, Knee Right Radiogra phic Imaging 05/31/2024 2:29 PM EDT Narrative 05/31/2024 3:04 PM EDT ?[facility] ?[address] ?[place] [address] ?XRay Report ? Signed ? Patient: Jose Alberto James,Corina ?MR#: [id number] ?? [id number] ? : 1975 ?Acct:[id number] ? Age/Sex: 49 / F ?ADM Date: 05/31/24 ? Loc: HO.HHCX ? Attending Dr: Tata Fink ? Ordering Physician: Tata Fink ?? Date of Service: 05/31/24 ?? Procedure(s): XR knee RT 4V ?? Accession Number(s): [id number] ? cc: Tata Fink ? EXAMINATION: ?? [...] DD/ 1429 ? TD/TT: 05/31/24 1455 ? Hydrographer: ? Procedure Note Bonita, Carli - 05/31/2024 [facility] [address] [place] [address] XRay Report Signed Patient: Yarelis Nielsen#: [id number] : 1975Acct:[id number] Age/Sex: 49 / FADM Date: 05/31/24 Loc: HO.HHCX Attending Dr: Tata Fink Ordering Physician: Tata Fink Date of Service: 05/31/24 Procedure(s): XR knee RT 4V Accession Number(s): [id number] cc: Tata Fink EXAMINATION: XR KNEE, RIGHT [...] 05/31/24 1501 DD/ 1429 TD/TT: 05/31/24 1455 Hydrographer: Tata Fink FIRST MATE IMG XR PROCEDURES Final Result * XR Knee 4+ Views Left (05/31/2024 2:29 PM EDT) Anatomical Region Laterality Modality Lower Extremities, Knee Left Radiogra phic Imaging 05/31/2024 2:29 PM EDT Narrative 05/31/2024 3:05 PM EDT ?[facility] ?[address] ?[place] [address] ?XRay Report ? Signed ? Patient: Abrams James,Corina ?MR#: [id number] ?? [id number] ? : 1975 ?Acct:[id number] ? Age/Sex: 49 / F ?ADM Date: 03/10/25 ? Loc: HO.HHCX ? Attending Dr: Tata Fink ? Ordering Physician: Tata Fink ?? Date of Service: 05/31/24 ?? Procedure(s): XR knee LT 4V ?? Accession Number(s): [id number] ? cc: Tata Fink ? EXAMINATION: ?? [...] DD/ 1429 ? TD/TT: 05/31/24 1455 ? Hydrographer: ? Procedure Note Bonita, Image - 05/31/[address] [address] XRay Report Signed Patient: Yarelis Nielsen#: [id number] : 1975Acct:[id number] Age/Sex: 49 / FADM Date: 05/31/24 Loc: HO.HHCX Attending Dr: Tata Fink Ordering Physician: Tata Fink Date of Service: 05/31/24 Procedure(s): XR knee LT 4V Accession Number(s): [id number] cc: Tata Fink EXAMINATION: XR KNEE, LEFT [...] Valentino Guerra MD 05/31/2024 03:02 PM EDT RP Dictated By: Valentino Cotter MD Signed By: <Electronically signed by Valentino Jones MDin OV> 05/31/24 1502 DD/ 1429 TD/TT: 05/31/24 1455 Hydrographer: us Tata Appram FIRST MATE IMG XR PROCEDURES Final Result * TSH with Reflex to Free T4 (05/05/2024 11:23 AM EST) TSH reflex Free T4 0.78 0.32 - 4.0 uIU/mL [facility] 05/05/2024 11:2 3 AM EST 05/05/2024 11:23 AM EST us Generic External Data Provider LAB BLOOD ORDERAB LES Final Result [facility] [address] [place] [phone] * (ABNORMAL) CBC (05/05/2024 11:23 AM EST) White Blood Count 5.5 4.8 - 10.8 X10*3/uL [facility] Red Blood Count 3.92(L) 4.20 - 5.50 X10*6/uL [facility] Hemoglobin 12.0 12.0 - 16.0 g/dl [facility] Hematocrit 36.3(L) 37.0 - 47.0 % [facility] Mean Corpuscular Volume 92.6 80.0 - 98.0 fL [facility] Mean Corpuscular Hemoglobin 30.6 27.0 - 33.0 pg [facility] Mean Corpuscular HGB Conc 33.1 31.0 - 35.0 g/dl [facility] Red Cell Distribution Width 12.3 11.0 - 16.0 % [facility] Platelet Count 264 160 - 400 X10*3/uL [facility] Mean Platelet Volume 11.1 9.4 - 12.3 fL [facility] NRBC Pct Auto 0.0 0.0 - 0.2 /100WBC [facility] NRBC Abs Auto 0.000 0.0 - 0.012 X10*3/uL [facility] 05/05/2024 11:2 3 AM EST 05/05/2024 11:23 AM EST us Generic External Data Provider LAB BLOOD ORDERAB LES Final Result [facility] [address] [place] [phone] * hCG, Total, Quantitative (05/05/2024 11:23 AM EST) HCG Quantitative <2 mIU/mL [facility] Comment:Weeks post LMP Appro ximate hCG(Last Menstrual Period) Range (mIU/ml)3 - 4 weeks 9 - 1304 - 5 weeks 75 - 2,6005 - 6 weeks 850 - 20,8006 - 7 weeks 4000 - 100,2007 - 12 weeks 11,500 - 289,72772 - 16 weeks 18,300 - 137,98737 - 29 weeks (2nd trimester) 1,400 - 53,50387 - 41 weeks (3rd trimester) 940 - [...] ORDERAB LES Final Result Performing Organization Address City/[facility]/ZIP Co de Phone Number [facility] [address] [place] [phone] * LH (05/05/2024 11:23 AM EST) Lutenizing Hormone 7.8 mIU/mL [facility] Comment:Reference Range Fol licular Phase 1.9-12.5 Mid-Cycle Peak 8.7-76.3 Luteal Phase 0.5-16.9 Postmenopausal 10.0-54.7THIS TEST WAS PERFORMED AT:[employer] [address] [id number] OLIVAS MD 05/05/2024 11:2 3 AM EST 05/05/2024 11:23 AM EST us Generic External Data Provider LAB BLOOD ORDERAB LES Final Result Performing Organization Address [facility] Co de Phone Number [facility] [address] [place] [phone] * FSH (05/05/2024 11:23 AM EST) Follicle Stimulating Hormone 14.4 mIU/mL [facility] Comment:Reference Range Fol licular Phase 2.5-10.2 Mid-cycle Peak 3.1-17.7 Luteal Phase 1.5- 9.1 Postmenopausal 23.0-116.3THIS TEST WAS PERFORMED AT:[employer] [address] [id number] OLIVAS MD 05/05/2024 11:2 3 AM EST 05/05/2024 11:23 AM EST us Generic External Data Provider LAB BLOOD ORDERAB LES Final Result Performing Organization Address City/[facility]/ZIP Co de Phone Number [facility] [address] [place] [phone] * Chlamydia/N. Gonorrhoeae RNA, TMA, Urogenitial (05/05/2024 11:19 AM EST) CT PCR NOT DETECTED Not Detect. [facility] Comment:A not detected test result [...] psychologicalconsequences. NG PCR NOT DETECTED Not Detect. [facility] Comment:A not detected test result [...] AM EST 05/05/2024 11:56 AM EST Narrative [facility] - 05/06/2024 7:21 AM EST Vaginal us Generic External Data Provider LAB MICROBIOLOGY - GENERAL ORDERABLES Final Result [facility] [address] [place] [phone] * HPV DNA, Low/High Risk (05/05/2024 10:22 AM EST) HPV High Risk Negative Negative [facility] HPV Genotype 16 Negative Negative [facility] HPV Genotype 18 Negative Negative [facility] Comment:HPV testing performe d at [facility] (CLIA#[id number]), [address] [place] [address].Testing for HPV was performed using the Jon [...] Provider LAB BLOOD ORDERAB LES Final Result [facility] [address] [place] [phone] * Pap Smear (05/05/2024 10:22 AM EST) 05/05/2024 10:2 2 AM EST 05/06/2024 6:10 AM EST Narrative [facility] - 05/11/2024 9:16 AM EST ----- ------- Name: Corina Nielsen ?Age/Sex: 49/F ? : 1975 Unit#: [id number] ?? Attend Dr: Pj Posadas MD ?Re05/05/24 ?Status: DEP REF ? Location: HO.LNP ?Disch: ? ----- ------- SPEC : [id number] ? RECD: 05/06/24 ? STATUS: ??SOUT ? REQ NUM: [id number] ? LAURA: 05/05/24-1022 ? SUBM DR: Pj Posadas MD ? [...] Copies To: ?? Marian Crook MD ?? [facility] ?? [address] ?? [place], [place] [id number] ?? [phone] ?? Pj Posadas MD ?? [facility] ?? [address] ?? [place] [address] ?? [phone] ----- ------- Signed (signature on file) SCARLET Hernandez (ASCP) 05/11/24 0916 ? ----- ------- ? END OF REPORT ? us Generic External Data Provider LAB CYTOLOGY KASSIEE ANA M Final Result [facility] [address] [place] [phone] * Hepatitis C Ab (03/27/2024 10:19 AM EST) Hepatitis C Antibody Nonreactive Nonreactive [facility] Comment:Antibodies to HCV no t detected; does not exclude early acuteHCV infection. 03/27/2024 10:1 9 AM EST 03/27/2024 10:19 AM EST us Generic External Data Provider LAB BLOOD ORDERAB LES Final Result Performing Organization Address [facility]/RUST de Phone Number [facility] [address] [place] [phone] * HIV-1/2 Antigen and Antibodies, Fourth Generation, with Reflexes (03/27/2024 10:19 AM EST) Pathologist [facility] HIV AB/AG Nonreactive Nonreactive [facility] Comment:HIV-1 p24 Ag and/or HIV-1/HIV-2 Ab not detected.A test result that is nonreactive does not exclude thepossibility of exposure to or infection with HIV-1 and/orHIV-2. Nonreactive results in this assay for individualswith prior exposure to HIV-1 and/or HIV-2 may be due toantigen and antibody levels that are below the limit ofdetection of this assay.The Oculus360niCuralate HIV Ag/Ab Combo assay result andsupplemental assay results should be interpreted inconjunction with the patient's clinical presentation,history and other laboratory results. If the results areinconsistent with clinical evidence, additional testing issuggested to confirm the result. 03/27/2024 10:1 9 AM EST 03/27/2024 10:19 AM EST us Generic External Data Provider LAB BLOOD ORDERAB LES Final Result Performing Organization Address [facility] Co de Phone Number [facility] [address] [place] [phone] * Cologuard?? colon cancer screening (02/02/2024 9:15 AM EST) Cologuard Result Negative Negative 02/08/20 2:05 AM EST [employer] ([place] #:[id number]) Comment: NEGATIVE TEST RESULT. A negative Cologuard [...] Gonzalez et al, N Engl J Med 2014;370(14):1286- 1297) The normal value (reference range) for this assay is negative. COLOGUARD RE-SCREENING RECOMMENDATION: Periodic colorectal cancer screening is an important part of preventive healthcare for asymptomatic individuals at average risk for colorectal cancer. ??Following a negative Cologuard result, the [place] [employer] Society and U.S. Multi-Society Task Force screening guidelines recommend a Cologuard re-screening interval of 3 years. References: [place] [employer] Guideline for Colorectal Cancer Screening: https://www.cancer.org/cancer/mijsa-cdbssx-nfffpz/mbkfzevrk-amrcuxdza-weluxxm/ac s-rec ommendations.html.; Hector ABERNATHY, Julio Cesar CR, Janet TroncosoK, Colorectal Cancer Screening: Recommendations for Physicians and Patients from the U.S. Multi-Society Task Force on Colorectal Cancer Screening , Am J Gastroenterology 2017; 112:9277-3353. TEST DESCRIPTION: Composite algorithmic analysis of stool [...] Gonzalez et al, N Engl J Med 2014;370(14):5065-4469.) Cologuard may produce a false negative or false positive result (no colorectal cancer or precancerous polyp present at colonoscopy follow up). A negative Cologuard test result does not guarantee the absence of CRC or advanced adenoma (pre-cancer). The current Cologuard screening interval is every 3 years. ([place] [employer] Society and U.S. Multi-Society Task Force). Cologuard performance data in a 10,000 patient pivotal study using colonoscopy as the reference method can be accessed at the following location: www.MaulSoup/results. Additional description of the Cologuard test process, warnings and precautions can be found at www.cologuard.com. Stool specimen (specimen) Rectal contents / Unknown 02/02/2024 9:15 AM EST 02/03/2024 10:52 AM EST us Marian Crook MD LAB MOLECULAR DIAGNOSTIC S ORDERABLES Final Result [employer] (CLIA #:[id number]) [place] [place] [address], * BI Mammogram Screening Tomosynthesis Bilateral (12/05/2023 3:30 PM EDT) Anatomical Region Laterality Modality Breast Bilateral Mammography 12/05/2023 3:30 PM EDT Narrative 12/19/2023 8:58 AM EDT ? [facility] ? [address] ?[place] [address] ? Mammography Report ? Signed ? Patient: Abrams James,Corina ?MR#: [id number] ?? [id number] ? : 1975 ?Acct:[id number] ? Age/Sex: 48 / F ?ADM Date: 12/05/23 ? Loc: HO.MAMMO ? Attending Dr: Marian Crook MD ? Ordering Physician: Marian Crook MD ?Results: 1Ne ?? gative ? Date of Service: 12/05/23 ?Follow Up: 1 Year From Orig ?? inal Mammogram ? Procedure(s): MM tomosynthesis screening BI ?? Accession Number(s): [id number] ? cc: Marian Crook MD ? EXAMINATION: [...] DD/ 1530 ? TD/TT: 12/05/23 1540 ? Hydrographer: ? Procedure Note Carli Mesa - 12/19/2023 [place] [facility] [address] [place] [address] Mammography Report Signed Patient: Yarelis Nielsen#: [id number] : 1975Acct:[id number] Age/Sex: 48 / FADM Date: 12/05/23 Loc: HO.MAMMO Attending Dr: Marian Crook MD Ordering Physician: Marian Crook MDResults: 1Ne gative Date of Service: 12/05/23Follow Up: 1 Year From Orig inal Mammogram Procedure(s): MM tomosynthesis screening BI Accession Number(s): [id number] cc: Marian Crook MD EXAMINATION: MM SCREENING [...] 12/19/23 0855 DD/ 1530 TD/TT: 12/05/23 1540 Hydrographer: Marian Crook MD IMG BI PROCEDURES Final Result from Last 3 Months or Most Recently Relevant to Health Maintenance Insurance [facility] [place] [address] Care Teams Adjunct Art History Instructor Relationship Specialty Start Date End Date Marian Crook MD [address] [place] [phone] PCP - General Internal Medicine 09/12/23
--- OUTSIDE RECORDS SUMMARY | 2024-07-29 14:03 | XMS_ITS | Encounter Summary ---
Author Organization [employer] Address [address] [facility] 7t [place] [address] Care Team Providers Care Layer Off Name Role Phone Marian Crook MD Primary Care Provider + Reason for Visit * Reason Onset Date Comments Med Refill 03/25/2024 Encounter Details Date Type Department Care Team ([facility] st Contact Info) Description 03/25/2024 Refill [facility] [address] [place] [address] Marian Crook MD [address] [place] [address] Moderate persistent asthma without complication Social History [...] Description 10/12/2024 3:30 PM EDT Office Visit [facility] [address] [place] [address] Marian Crook MD [address] [place] [address] documented as of this encounter Visit Diagnoses Diagnosis Moderate persistent asthma without complication documented in this encounter Additional Health Concerns Assessment Noted Time PHQ-9 Depression Total Score: 22 024 2:02 PM EDT documented as of this encounter Care Teams Layer Off Relationship Specialty Start Date End Date Marian Crook MD [address] [place] [phone] PCP - General Internal Medicine 09/12/23 documented as of this encounter
--- OUTSIDE RECORDS SUMMARY | 2024-07-29 14:03 | XMS_ITS | Encounter Summary ---
Author Organization [employer] Address [address] [facility] 7 [place] [address] Care Team Providers Care Computing Systems Mechanic Name Role Phone Marian Crook MD Primary Care Provider + Reason for Visit * Reason Onset Date Comments Med Refill 06/02/2024 Encounter Details Date Type Department Care Team ([facility] st Contact Info) Description 06/02/2024 Telephone [facility] [address] [place], [place] [phone] Marian Crook MD [address] [place] [address] Med Refill Social History Tobacco Use Types [...] Description 10/12/2024 3:30 PM EDT Office Visit [facility] [address] [place] [address] Marian Crook MD [address] [place] [address] documented as of this encounter Visit Diagnoses Diagnosis Moderate persistent asthma without complication documented in this encounter Additional Health Concerns Assessment Noted Time PHQ-9 Depression Total Score: 22 024 2:02 PM EDT documented as of this encounter Care Teams Computing Systems Mechanic Relationship Specialty Start Date End Date Marian Crook MD [address] [place] [address] [phone] PCP - General Internal Medicine 09/12/23 documented as of this encounter
--- OUTSIDE RECORDS SUMMARY | 2024-07-29 14:03 | XMS_ITS | Encounter Summary ---
Author Organization [employer] Address [address] [facility] 7t [place] [address] Care Team Providers Care Enamel Machine Operator Name Role Phone Marian Crook MD Primary Care Provider + Reason for Visit * Reason Comments Med Refill Encounter Details Date Type Department Care Team (Late st Contact Info) Description 07/28/2024 Refill [facility] [address] [place], [place] [phone] Claritza Leonard DO [address] [place], [place] [phone] Social History Tobacco Use Types Packs/Day Years [...] Description 10/12/2024 3:30 PM EDT Office Visit [facility] [address] [place] [address] Marian Crook MD [address] [place] [address] documented as of this encounter Visit Diagnoses Not on filedocumented in this encounter Additional Health Concerns Assessment Noted Time PHQ-9 Depression Total Score: 22 024 2:02 PM EDT documented as of this encounter Care Teams Enamel Machine Operator Relationship Specialty Start Date End Date Marian Crook MD [address] [place] [phone] PCP - General Internal Medicine 09/12/23 documented as of this encounter
--- OUTSIDE RECORDS SUMMARY | 2024-07-29 14:03 | XMS_ITS | Encounter Summary ---
Author Organization [employer] Address [address] [place] [address] [place], [place] [address] Care Team Providers Care Medical Delivery Driver Name Role Phone [facility] Primary Care Provider [phone] Marian Crook MD Primary Care Provider + Encounter Details Date Type Department Care Team (Late st Contact Info) Description 04/03/2023 Abstract [facility] [address] [place] [address] [phone] [place] [address] [address] Social History Tobacco Use Types Packs/Day Years [...] Description 10/12/2024 3:30 PM EDT Office Visit [facility] [address] [place] [address] [phone] Marian Crook MD [address] [place] [address] [phone] documented as of this encounter Visit Diagnoses Not on filedocumented in this encounter Additional Health Concerns Assessment Noted Time PHQ-9 Depression Total Score: 16 06/18/ 023 3:25 PM EDT documented as of this encounter Care Teams Medical Delivery Driver Relationship Specialty Start Date End Date Alisha HookRACQUEL [address] [place] [address] PCP - General Family Medicine 11/14/21 09/11/23 Marian Crook MD [address] [place] [address] PCP - General Internal Medicine 09/12/23 documented as of this encounter
--- OUTSIDE RECORDS SUMMARY | 2024-07-29 14:03 | XMS_ITS | Encounter Summary ---
Author Organization [employer] Address [address] [facility] 7 [place] [address] Care Team Providers Care Applications Intern Name Role Phone Marian Crook MD Primary Care Provider + Reason for Visit * Reason Onset Date Comments Med Refill 03/25/2024 Encounter Details Date Type Department Care Team ([facility] st Contact Info) Description 03/25/2024 Refill [facility] [address] [place] [address] Marian Crook MD [address] [place] [address] Social History Tobacco Use Types Packs/Day Years [...] Description 10/12/2024 3:30 PM EDT Office Visit [facility] [address] [place] [address] Marian Crook MD [address] [place] [address] documented as of this encounter Visit Diagnoses Not on filedocumented in this encounter Additional Health Concerns Assessment Noted Time PHQ-9 Depression Total Score: 22 024 2:02 PM EDT documented as of this encounter Care Teams Applications Intern Relationship Specialty Start Date End Date Marian Crook MD [address] [place], [place] [phone] PCP - General Internal Medicine 09/12/23 documented as of this encounter
--- OUTSIDE RECORDS SUMMARY | 2024-07-29 14:03 | XMS_ITS | Clinical Summary ---
Author Organization [facility] Address [address] [place] [address] Phone Care Team Providers Care Chief Controller Center Name Role Phone Marian Crook MD Primary Care Provider Encounters Date Type Department Care Team Description 07/02/2024 Telephone [facility] [address] [place] [phone] Marian Crook MD Referral (Received routine paper referral - June) from Last 3 Months Social History Tobacco Use Types Packs/Day Years Used Date Smoking Tobacco: Never Assessed Comments Unknown Sex and Gender Information Value Date Recorded Sex Assigned at Not on file Legal Sex Female 2:27 AM EST Gender Identity Not on file Sexual Orientation Not on file Plan of Treatment Upcoming Encounters Date Type Department Care Team (Late st Contact Info) Description 09/28/2024 1:00 PM EDT Appointment [facility] Xray [address] [place] [phone] Health Maintenance Due Date Last Done Comments [...] patient's age to complete this topic Insurance [employer] [place] - [place] Care Teams Chief Controller Center Relationship Specialty Start Date End Date Marian Crook MD [address] [place] [phone] PCP - General Internal Medicine 07/08/24
--- OUTSIDE RECORDS SUMMARY | 2024-07-29 14:03 | XMS_ITS | Encounter Summary ---
Author Organization [employer] Address [address] [facility] 7t [place] [address] Care Team Providers Care Wine Merchant Name Role Phone Marian Crook MD Primary Care Provider + Reason for Visit * Reason Onset Date Comments Med Refill 03/25/2024 Encounter Details Date Type Department Care Team (Late st Contact Info) Description 03/25/2024 Refill [facility] [address] [place] [address] Claritza Leonard DO [address] [place] [address] Social History Tobacco Use Types Packs/Day Years [...] Description 10/12/2024 3:30 PM EDT Office Visit [facility] [address] [place] [address] Marian Crook MD [address] [place] [address] documented as of this encounter Visit Diagnoses Not on filedocumented in this encounter Additional Health Concerns Assessment Noted Time PHQ-9 Depression Total Score: 22 024 2:02 PM EDT documented as of this encounter Care Teams Wine Merchant Relationship Specialty Start Date End Date Marian Crook MD 230 [place], [place] [phone] PCP - General Internal Medicine 09/12/23 documented as of this encounter
--- OUTSIDE RECORDS SUMMARY | 2024-07-29 14:03 | XMS_ITS | Encounter Summary ---
Author Organization [email or web address] Address [address] [facility] 7t [place] [address] Care Team Providers Care Learning And Development Intern Name Role Phone Marian Crook MD Primary Care Provider + Reason for Visit * Reason Comments Med Change Request Encounter Details Date Type Department Care Team ([facility] st Contact Info) Description 06/17/2024 Refill [facility] 230 [place], [place] [phone] Marian Crook MD 230 [place], [place] [phone] Social History Tobacco Use Types Packs/Day Years [...] Description 10/12/2024 3:30 PM EDT Office Visit [facility] [address] [place] [address] Marian Crook MD [address] [place] [address] documented as of this encounter Visit Diagnoses Not on filedocumented in this encounter Additional Health Concerns Assessment Noted Time PHQ-9 Depression Total Score: 22 024 2:02 PM EDT documented as of this encounter Care Teams Learning And Development Intern Relationship Specialty Start Date End Date Marian Crook MD [address] [place] [phone] PCP - General Internal Medicine 09/12/23 documented as of this encounter
--- OUTSIDE RECORDS SUMMARY | 2024-07-29 14:03 | XMS_ITS | Encounter Summary ---
Author Organization [employer] Address [address] [place] [address] [address] [place] [address] Care Team Providers Care Activity Aid Name Role Phone Marian Crook MD Primary Care Provider + Reason for Visit * Reason Comments Med Refill Encounter Details Date Type Department Care Team (Late st Contact Info) Description 11/27/[address] [facility] [address] [place] [address] [phone] Marian Crook MD [address] [place], [place] [phone] Social History Tobacco Use Types Packs/Day Years [...] Description 10/12/2024 3:30 PM EDT Office Visit [facility] [address] [place] [address] [phone] Marian Crook MD [address] [place], [place] [phone] documented as of this encounter Visit Diagnoses Not on filedocumented in this encounter Additional Health Concerns Assessment Noted Time PHQ-9 Depression Total Score: 16 06/18/ 023 3:25 PM EDT documented as of this encounter Care Teams Activity Aid Relationship Specialty Start Date End Date Marian Crook MD [address] [place] [address] PCP - General Internal Medicine 09/12/23 documented as of this encounter
--- OUTSIDE RECORDS SUMMARY | 2024-07-29 14:04 | XMS_ITS | Encounter Summary ---
Author Organization [employer] Address [address] [facility] 7t [place] [address] Care Team Providers Care Insulation Blower Name Role Phone Marian Crook MD Primary Care Provider + Reason for Visit * Reason Comments Med Refill Encounter Details Date Type Department Care Team (Late st Contact Info) Description 06/05/2024 Refill [facility] 230 [place], [place] [phone] Marian Crook MD 230 [place], [place] [phone] Social History Tobacco Use Types Packs/Day Years [...] 10/12/2024 3:30 PM EDT Office Visit [facility] [address] [place] [address] Marian Crook MD [address] [place] [address] documented as of this encounter Visit Diagnoses Not on filedocumented in this encounter Additional Health Concerns Assessment Noted Time PHQ-9 Depression Total Score: 22 024 2:02 PM EDT documented as of this encounter Care Teams Insulation Blower Relationship Specialty Start Date End Date Marian Crook MD [address] [place] [phone] PCP - General Internal Medicine 09/12/23 documented as of this encounter
== END 2024-07-29 13:19 | disposition home or self-care (01) ==
LOC: HO.HWS 12:56
PROVIDERS: PCP Internal Medicine; Visit Provider Obstetrics & Gynecology
DX: N93.9 Abnormal uterine and vaginal bleeding, unspecified (principal); D25.9 Leiomyoma of uterus, unspecified
CPT/HCPCS: 99213

== ENCOUNTER → 2024-07-31 14:54 | Outpatient (BNV) | payer OTHER, SELFPAY | PROVIDERS: PCP Internal Medicine; Visit Provider Radiology Diagnostic Radiology | DX: M22.40 Chondromalacia patellae, unspecified knee (principal); M71.22 Synovial cyst of popliteal space [Baker], left knee; S83.242A Other tear of medial meniscus, current injury, left knee, initial encounter | CPT/HCPCS: 73721 ==

== ENCOUNTER 2024-07-31 15:03 | Outpatient (REF) | payer OTHER, SELFPAY ==
--- NOTE | ~2024-07-31 | MR_ITS ---
EXAMINATION: MRI LEFT KNEE WITHOUT CONTRAST HISTORY: S83.242A - Other tear of medial meniscus, current injury, left knee COMPARISON: Relation is made with plain films of the left knee dated 05/31/2024. TECHNIQUE: Coronal T1 and fat-suppressed proton density, sagittal proton density and fat-suppressed proton density, and axial fat suppressed T2 weighted MR images of the left knee were obtained. FINDINGS: Bone marrow: Bone marrow signal intensity is normal. Joint effusion: There is no joint effusion. Arteaga's cyst: There is an 8 mm loose body in a tiny Arteaga's cyst. Articular cartilage: There is moderate irregularity of the cartilage involving the medial patellar facet. Cartilage of the medial and lateral compartments is intact. Muscles/soft tissues: There is high signal intensity edema in the vastus medialis muscle consistent with a partial tear. The remaining visualized muscles demonstrate normal signal intensity. Anterior cruciate ligament: Intact Posterior cruciate ligament: Intact Medial collateral ligament: Intact Lateral collateral ligament: Intact Medial meniscus: Intact Lateral meniscus: Intact Flexor mechanism: The popliteus, gastrocnemius, and hamstring tendons are intact. Quadriceps tendon: Intact Patellar tendon: Intact Patellar retinacula: Intact MR/MR knee LT wo con IMPRESSION: 1. Partial tear of the vastus medialis muscle. 2. Moderate irregularity of the cartilage involving the medial patellar facet. 3. 8 mm loose body in a Arteaga's cyst. Electronically signed by: Dorian [place] MD 08/02/2024 08:40 AM EDT
--- OUTSIDE RECORDS SUMMARY | 2024-07-31 15:05 | XMS_ITS | Encounter Summary ---
Author Organization [employer] Address [address] [facility] [address] [place] [address] Care Team Providers Care Collator Name Role Phone Marian Crook MD Primary Care Provider + Reason for Visit * Reason Comments Med Change Request Encounter Details Date Type Department Care Team ([facility] st Contact Info) Description 06/17/[address] [facility] [address] [place], [place] [phone] Marian Crook MD 230 [place], [place] [phone] Social History Tobacco Use Types Packs/Day Years [...] 10/12/2024 3:30 PM EDT Office Visit [facility] [address] [place] [address] Marian Crook MD [address] [place] [address] documented as of this encounter Visit Diagnoses Not on filedocumented in this encounter Additional Health Concerns Assessment Noted Time PHQ-9 Depression Total Score: 22 024 2:02 PM EDT documented as of this encounter Care Teams Collator Relationship Specialty Start Date End Date Marian Crook MD [address] [place] [phone] PCP - General Internal Medicine 09/12/23 documented as of this encounter
--- OUTSIDE RECORDS SUMMARY | 2024-07-31 15:05 | XMS_ITS | Encounter Summary ---
Author Organization [employer] Address [address] [facility] 7 [place] [address] Care Team Providers Care Top Polisher Name Role Phone Marian Crook MD Primary Care Provider + Reason for Visit * Reason Onset Date Comments Med Refill 03/25/2024 Encounter Details Date Type Department Care Team ([facility] st Contact Info) Description 03/25/2024 Refill [facility] [address] [place] [address] Marian Crook MD [address] [place] [address] Social History Tobacco Use Types Packs/Day Years [...] 3:30 PM EDT Office Visit [facility] [address] [place] [address] Marian Crook MD [address] [place] [address] documented as of this encounter Visit Diagnoses Not on filedocumented in this encounter Additional Health Concerns Assessment Noted Time PHQ-9 Depression Total Score: 22 024 2:02 PM EDT documented as of this encounter Care Teams Top Polisher Relationship Specialty Start Date End Date Marian Crook MD [address] [place], [place] [phone] PCP - General Internal Medicine 09/12/23 documented as of this encounter
--- OUTSIDE RECORDS SUMMARY | 2024-07-31 15:05 | XMS_ITS | Encounter Summary ---
Author Organization [employer] Address [address] [facility] 7t [place] [address] Care Team Providers Care Bridge Inspector Name Role Phone Marian Crook MD Primary Care Provider + Reason for Visit * Reason Onset Date Comments Med Refill 03/25/2024 Encounter Details Date Type Department Care Team ([facility] st Contact Info) Description 03/25/2024 Refill [facility] [address] [place] [address] Marian Crook MD [address] [place] [address] Moderate persistent asthma without complication Social History [...] 3:30 PM EDT Office Visit [facility] [address] [place] [address] Marian Crook MD [address] [place] [address] documented as of this encounter Visit Diagnoses Diagnosis Moderate persistent asthma without complication documented in this encounter Additional Health Concerns Assessment Noted Time PHQ-9 Depression Total Score: 22 024 2:02 PM EDT documented as of this encounter Care Teams Bridge Inspector Relationship Specialty Start Date End Date Marian Crook MD [address] [place] [phone] PCP - General Internal Medicine 09/12/23 documented as of this encounter
--- OUTSIDE RECORDS SUMMARY | 2024-07-31 15:05 | XMS_ITS | Clinical Summary ---
Author Organization [employer] Address [address] [place] [address] 7[address] [place] [address] Care Team Providers Care Harpooner Name Role Phone Marian Crook MD Primary [...] 05/13/19 25 Active Diclofenac Sodium 1 % gelIndications:C hronic pain of both knees Apply 2 g [...] EVERY DAY 90 tablet 06/08/19 25 Active acetaminophen (Tylenol 8 Hour) 650 MG ER tablet TAKE 1 TABLET BY MOUTH EVERY 8 HOURS IF NEEDED FOR MILD PAIN. DO NOT CRUSH, CHEW, OR SPLIT. 50 tablet 2 07/31/19 25 Active acetaminophen (Tylenol 8 Hour) 650 MG ER tablet Take 1 tablet (650 mg) by mouth every 8 (eight) hours if needed for mild pain. Do not crush, chew, or split. 50 tablet 2 02/26/20 24 025 Discontinued Active Problems Problem Noted [...] (11/13/2023 10:30 AM EDT): Repeat order for Zac, pt did not send previous kit. Chronic [...] related to patient's menorrhagia(she is followed by [facility]) + significant diuresis. Patient will have increase [...] this letter, she has appt with [facility] next week. I told her to reach out to contract paralegal to help her write a letter so that housing give her some more time to get the letter from MH provider. She will res tart Effexor for anxiety and fu with me in 6m Encounters Date Type Department Care Team Description 07/28/2024 Refill [facility] [address] [facility] [place] [address] Claritza Leonard DO 07/07/2024 Orders Only GENERIC EXTERNAL DATA DEPARTMENT Provider, Generic External Data 07/02/2024 11:45 AM EDT Office Visit [facility] [place] [address] Marian Crook MD Polyuria (Primary Dx); Dizziness; Chronic low back pain without sciatica, unspecified back pain laterality; Dizziness on standing; Palpitations 07/02/2024 Travel 06/30/2024 Telephone [facility] [place] [address] Marian Crook MD Chart prep 06/25/2024 Orders Only GENERIC EXTERNAL DATA DEPARTMENT Provider, Generic External Data 06/24/2024 Orders Only [facility] [place] [address] Marian Crook MD Bilateral primary osteoarthritis of knee (Primary Dx) 06/23/2024 Patient Outreach [facility] [place] [address] Marian Crook MD Pre-visit Planning (SDOH screening negative and tobacco screening negative) 06/18/2024 Orders Only GENERIC EXTERNAL DATA DEPARTMENT Provider, Generic External Data 06/17/2024 Refill [facility] [place] [address] Marian Crook MD 06/05/2024 Refill [facility] [address] [place] [address] Marian Crook MD 06/05/2024 Refill [facility] [address] [place] [address] Claritza Leonard DO 06/04/2024 Population Health Risk Score [facility] ([facility]) Department [address] [phone] Provider, Population Health Generic 06/02/2024 Telephone [facility] [address] [place] [address] Marian Crook MD Med Refill 06/02/2024 Telephone [facility] [address] [place] [address] Marian Crook MD Referral 06/02/2024 Refill [facility] [address] [place] [address] Marian Crook MD 05/28/2024 3:15 PM EST Office Visit [facility] [address] [place] [phone] Tata Fink NP Chronic pain of both knees (Primary Dx) 05/26/2024 Telephone [facility] [address] [place] [phone] Marian Crook MD Nurse Triage 05/13/2024 Refill [facility] [address] [place] [address] Marian Crook MD Moderate persistent asthma without complication 05/07/2024 Refill [facility] [address] [place] [address] [phone] Marian Crook MD 05/05/2024 Orders Only GENERIC [...] 10/12/2024 3:30 PM EDT Office Visit [facility] [address] [place] [address] Marian Crook MD [address] [place] [address] Health Maintenance Due Date Last Done Comments [...] 3:35 PM EDT 07/08/2024 8:15 AM EDT [facility] - 07/09/2024 3:29 PM EDT ----- ------- Name: Corina Nielsen ?Age/Sex: 49/F ? : 1975 Unit#: [id number] ?? Attend Dr: Pj Posadas MD ?Re07/07/24 ?Status: DEP REF ? Location: HO.LNP ?Disch: ? ----- ------- SPEC : [id number] ? RECD: 07/08/24 ? STATUS: ??SOUT ? REQ NUM: [id number] ? LAURA: 07/07/24-5833 ? SUBM DR: Pj Posadas MD ? [...] Copies To: ?? Marian Crook MD ?? [facility] ?? [address] [facility] ?? [place] [address] ?? [phone] ?? Pj Posadas MD ?? [facility] Women's Services ?? [address] ?? [place] [address] ?? [phone] ? CONTINUED ON NEXT PAGE ----- ------- Name: Corina Nielsen ?Age/Sex: 49/F ? : 1975 Unit#: [id number] ?? Attend Dr: Pj Posadas MD ?Re07/07/24 ?Status: DEP REF ? Location: HO.LNP ?Disch: ? ----- ------- SPEC : [id number] ? RECD: 07/08/24 ? STATUS: ??SOUT ? REQ NUM: [id number] ? LAURA: 07/07/24-1534 ? SUBM : Pj Posadas MD ? ENTERED: ??07/08/24 ?SP TYPE: Surgical ? OTHR DR: Marian Crook MD ? ORDERED: ??HE Stain/2, Gross Micro L4 ? ----- ------- Signed (signature on file) Maciej Elmore MD 07/09/24 0235 ? ----- ------- ? END OF REPORT ? Generic External Data Provider LAB BLOOD ORDERAB LES Final Result Performing Organization Address [facility] Co de Phone Number [facility] [address] [place] [phone] * POCT Urinalysis (07/02/2024 12:42 PM [...] Date Urine 07/02/2024 12:4 2 PM EDT Result [facility] Marian Crook MD POINT OF CARE TEST ENTER /EDIT ORDERABLES Final Result * High Sensitivity Troponin I (06/18/2024 11:08 AM EDT) Only the most recent of2 resultswithin the time period is included. TROPONIN I HIGH SENSITIVITY <2.7 <3.5 - 17.0 ng/L [facility] Comment:The Thomason high sens itivity Troponin-I results should beused in conjunction with other diagnostic information suchas ECG, clinical observations and information, and patientsymptoms to aid in the diagnosis of IN. 06/18/2024 11:0 8 AM EDT 06/18/2024 11:15 AM EDT Generic External Data Provider LAB BLOOD ORDERAB LES Final Result Performing Organization Address [facility] de Phone Number [facility] [address] [place] [phone] * XR Chest 1 View (06/18/2024 9:10 AM EDT) Anatomical Region Laterality Modality Chest Radiographic Irais ging 06/18/2024 9:10 AM EDT Narrative 06/18/2024 9:37 AM EDT ? [facility] ?[address] ?[place] [address] ?XRay Report ? Signed ? Patient: Arbams James,Corina ?MR#: [id number] ?? [id number] ? : 1975 ?Acct:[id number] ? Age/Sex: 49 / F ?ADM Date: 06/18/24 ? Loc: HO.ED ? Attending Dr: ? Ordering Physician: Lisa Nguyen DO ?? Date of Service: 06/18/24 ?? Procedure(s): XR chest 1V ?? Accession Number(s): [id number] ? cc: Marian Crook MD; Lisa Nguyen [...] ?06/18/24 0934 ? DD/ 0910 ? TD/TT: 06/18/24 0925 ? Sanitary Aide: ? Procedure Note Bonita, Carli - 06/18/[address] [place] [address] XRay Report Signed Patient: Yarelis Nielsen#: [id number] : 1975Acct:[id number] Age/Sex: 49 / FADM Date: 06/18/24 Loc: HO.ED Attending Dr: Ordering Physician: Lisa Nguyen DO Date of Service: 06/18/24 Procedure(s): XR chest 1V Accession Number(s): [id number] cc: Marian Crook MD; Lisa Nguyen DO [...] in OV> 06/18/24933 DD/ 9 TD/TT: 06/18/24924 Sanitary Aide: [facility] External Provider IMG XR PROCEDURES Final Result * US VENOUS DUPLEX LE LT (06/18/2024 9:09 AM EDT) Anatomical Region Laterality Modality Abdomen Ultrasound 06/18/2024 9:09 AM EDT Narrative 06/18/2024 9:20 AM EDT ? [facility] ?[address] ?[place] [address] ? Ultrasound Report ? Signed ? Patient: Abrams James,Corina ?MR#: [id number] ?? [id number] ? : 1975 ?Acct:[id number] ? Age/Sex: 49 / F ?ADM Date: 03/28/25 ? Loc: HO.ED ? Attending Dr: ? Ordering Physician: Lisa Nguyen DO ?? Date of Service: 06/18/24 ?? Procedure(s): US venous duplex LE LT ?? Accession Number(s): [id number] ? cc: Marian Crook MD; Lisa Nguyen [...] ? There is no Arteaga's cyst. ? US/ venous duplex LE LT ?? IMPRESSION: ?? No acute deep venous thrombosis involving the left lower extremity. ?? Negative for DVT. ? Electronically signed by: ??Valentino Guerra MD ??06/18/2024 09:18 AM ?? EDT ? Dictated By: ?Valentino Cotter MD ? Signed By: ?<Electronically signed by Valentino Jones MD in OV> ? 06/18/24 0918 ? DD/ 0909 ? TD/TT: 06/18/24 0914 ? Sanitary Aide: ? Procedure Note Bonita, Image - 06/18/2024 [place] [address] Ultrasound Report Signed Patient: Yarelis Nielsen#: [id number] : 1975Acct:[id number] Age/Sex: 49 / FADM Date: 06/18/24 Loc: HO.ED Attending Dr: Ordering Physician: Lisa Nguyen DO Date of Service: 06/18/24 Procedure(s): US venous duplex LE LT Accession Number(s): [id number] cc: Marian Crook MD; Lisa Nguyen DO [...] MDin OV> 06/18/24917 DD/ 8 TD/TT: 06/18/24913 Sanitary Aide: [facility] External Provider IMG US PROCEDURES Final Result * D Dimer High Sensitivity (06/18/2024 8:29 AM EDT) [facility] D Dimer High Sensitivity <150 NG/ML [facility] Comment:D-DIMER HS REFERENCE RANGENote: Our [...] Provider LAB BLOOD ORDERAB LES Final Result [facility] [address] [place] [phone] * (ABNORMAL) CBC auto differential (06/18/2024 8:29 AM EDT) [facility] White Blood Count 6.1 4.8 - 10.8 X10*3/uL [facility] Red Blood Count 4.36 4.20 - 5.50 X10*6/uL [facility] Hemoglobin 13.5 12.0 - 16.0 g/dl [facility] Hematocrit 40.2 37.0 - 47.0 % [facility] Mean Corpuscular Volume 92.2 80.0 - 98.0 fL [facility] Mean Corpuscular Hemoglobin 31.0 27.0 - 33.0 pg [facility] Mean Corpuscular HGB Conc 33.6 31.0 - 35.0 g/dl [facility] Red Cell Distribution Width 13.5 11.0 - 16.0 % [facility] Platelet Count 192 160 - 400 X10*3/uL [facility] Mean Platelet Volume 10.5 9.4 - 12.3 fL [facility] Neutrophils Percent Auto 76.0(H) 45 - 73 % [facility] Imm Gran Pct Auto 0.3 0.0 - 0.4 % [facility] Lymphocytes Percent Auto 16.3(L) 20 - 40 % [facility] Monocytes Percent Auto 6.2 2 - 11 % [facility] Eosinophils Percent Auto 0.7 0 - 4 % [facility] Basophils Percent Auto 0.5 0 - 2 % [facility] NRBC Pct Auto 0.0 0.0 - 0.2 /100WBC [facility] Neutrophils Absolute Auto 4.7 2.0 - 8.3 x10*3/uL [facility] Imm Gran Abs Auto 0.02 0.00 - 0.03 X10*3/uL [facility] Lymphocytes Absolute Auto 1.0(L) 1.2 - 4.9 X10*3/uL [facility] Monocytes Absolute Auto 0.4 0.1 - 1.2 X10*3/uL [facility] Eosinophils Absolute Auto 0.0 0.0 - 0.4 X10*3/uL [facility] Basophils Absolute Auto 0.0 0.0 - 0.2 X10*3/uL [facility] NRBC Abs Auto 0.000 0.0 - 0.012 X10*3/uL [facility] 06/18/2024 8:29 AM EDT 06/18/2024 8:32 AM EDT us Generic External Data Provider LAB BLOOD ORDERAB LES Final Result Performing Organization Address City/[facility]/ZIP Co de Phone Number [facility] [address] [place] [phone] * Prothrombin Time-INR (06/18/2024 8:29 AM EDT) Prothrombin Time 12.3 10.9 - 12.4 SEC [facility] INTERNATIONAL NORM RATIO 1.1 0.9 - 1.1 [facility] Comment:INTERNATIONAL NORMAL IZED RATIO (INR) [...] ORDERAB LES Final Result Performing Organization Address [facility] Co de Phone Number [facility] [address] [place] [phone] * Magnesium (06/18/2024 8:29 AM EDT) Magnesium 1.9 1.6 - 2.6 mg/dL [facility] 06/18/2024 8:29 AM EDT 06/18/2024 8:32 AM EDT us Generic External Data Provider LAB BLOOD ORDERAB LES Final Result Performing Organization Address City/[facility]/ZIP Co de Phone Number [facility] [address] [place] [phone] * (ABNORMAL) Comprehensive Metabolic Panel (06/18/2024 8:29 AM EDT) Sodium 138 135 - 145 mmol/L [facility] Potassium 3.9 3.3 - 5.1 mmol/L [facility] Chloride 112(H) 96 - 108 mmol/L [facility] Carbon Dioxide 21(L) 22 - 29 mmol/L [facility] Anion Gap 9(L) 12 - 20 [facility] Urea Nitrogen (BUN) 15 9 - 16 mg/dL [facility] Creatinine, Serum 0.70 0.5 - 1.4 mg/dL [facility] Creatinine Clr Calc Pharmacy 95.9 [facility] Comment:Provided height and weight: 160.02 cm,77.7 kg.eGFR (calculated from the MDRD study equation) and eCrCl(calculated from the Cockcroft-Gault equation) are based ondifferent parameters and may not yield comparable results.If eCrCl result is absurd, please check patient'sheight/weight. Estimated Glomerular Filt Rate >60 [facility] Comment:Chronic Kidney Disea se: Estimated GFR < 60 mL/min/1.45y1Xqnald Kidney Disease: Estimated GFR < 15 mL/min/1.73m2 Glucose 93 60 - 115 mg/dL [facility] Calcium 8.9 8.4 - 10.2 mg/dL [facility] Bilirubin, Total 0.5 0.0 - 1.0 mg/dL [facility] Aspartate Amino Transferase 21 5 - 31 U/L [facility] Alanine Aminotransferase 16 0 - 31 U/L [facility] Total Protein 7.0 6.5 - 8.0 g/dL [facility] Albumin Level 4.1 3.5 - 5.0 g/dL [facility] Alkaline Phosphatase 64 39 - 117 U/L [facility] 06/18/2024 8:29 AM EDT 06/18/2024 8:32 AM EDT us Generic External Data Provider LAB BLOOD ORDERAB LES Final Result [facility] [address] [place] [phone] * XR Knee 4+ Views Right (05/31/2024 2:29 PM EDT) Anatomical Region Laterality Modality Lower Extremities, Knee Right Radiogra phic Imaging 05/31/2024 2:29 PM EDT Narrative 05/31/2024 3:04 PM EDT ?[facility] ?[address] ?[place] [address] ?XRay Report ? Signed ? Patient: Jose Alberto James,Corina ?MR#: [id number] ?? [id number] ? : 1975 ?Acct:[id number] ? Age/Sex: 49 / F ?ADM Date: 05/31/24 ? Loc: HO.HHCX ? Attending Dr: Tata Fink ? Ordering Physician: Tata Fink ?? Date of Service: 05/31/24 ?? Procedure(s): XR knee RT 4V ?? Accession Number(s): [id number] ? cc: Tata Fink ? EXAMINATION: ?? [...] DD/ 1429 ? TD/TT: 05/31/24 1455 ? Sanitary Aide: ? Procedure Note Donotuseinterpreter, Image - 05/31/[address] [address] XRay Report Signed Patient: Yarelis Nielsen#: [id number] : 1975Acct:[id number] Age/Sex: 49 / FADM Date: 05/31/24 Loc: HO.HHCX Attending Dr: Tata Fink Ordering Physician: Tata Fink Date of Service: 05/31/24 Procedure(s): XR knee RT 4V Accession Number(s): [id number] cc: Tata Fink EXAMINATION: XR KNEE, RIGHT [...] 05/31/24 1501 DD/ 1429 TD/TT: 05/31/24 1455 Sanitary Aide: us Tata Fink PROMOTIONS ASSISTANT IMG XR PROCEDURES Final Result * XR Knee 4+ Views Left (05/31/2024 2:29 PM EDT) Anatomical Region Laterality Modality Lower Extremities, Knee Left Radiogra phic Imaging 05/31/2024 2:29 PM EDT Narrative 05/31/2024 3:05 PM EDT ?[facility] [place] [facility] ?[address] ?[place] [address] ?XRay Report ? Signed ? Patient: Abrams James,Corina ?MR#: [id number] ?? [id number] ? : 1975 ?Acct:[id number] ? Age/Sex: 49 / F ?ADM Date: 05/31/24 ? Loc: HO.HHCX ? Attending Dr: Tata Fink ? Ordering Physician: Tata Fink ?? Date of Service: 05/31/24 ?? Procedure(s): XR knee LT 4V ?? Accession Number(s): [id number] ? cc: Tata Fink ? EXAMINATION: ?? [...] Guerra MD ??05/31/2024 03:02 PM ?? EDT ? Dictated By: ?Valentino Cotter MD ? Signed By: ?<Electronically signed by Valentino Jones MD in OV> ? 05/31/24 1502 ? DD/ 1429 ? TD/TT: 05/31/24 1455 ? Sanitary Aide: ? Procedure Note Bonita Image - 05/31/2024 [facility] [address] [place] [address] XRay Report Signed Patient: Baljit NielsenJustina#: [id number] : 1975Acct:[id number] Age/Sex: 49 / FADM Date: 05/31/24 Loc: HO.HHCX Attending Dr: Tata Fink Ordering Physician: Tata Fink Date of Service: 05/31/24 Procedure(s): XR knee LT 4V Accession Number(s): [id number] cc: Tata Fink EXAMINATION: XR KNEE, LEFT [...] 05/31/24 1502 DD/ 1429 TD/TT: 05/31/24 1455 Sanitary Aide: us Tata Fink PROMOTIONS ASSISTANT IMG XR PROCEDURES Final Result * TSH with Reflex to Free T4 (05/05/2024 11:23 AM EST) TSH reflex Free T4 0.78 0.32 - 4.0 uIU/mL [facility] 05/05/2024 11:2 3 AM EST 05/05/2024 11:23 AM EST us Generic External Data Provider LAB BLOOD ORDERAB LES Final Result [facility] [address] [place] [phone] * (ABNORMAL) CBC (05/05/2024 11:23 AM EST) White Blood Count 5.5 4.8 - 10.8 X10*3/uL [facility] Red Blood Count 3.92(L) 4.20 - 5.50 X10*6/uL [facility] Hemoglobin 12.0 12.0 - 16.0 g/dl [facility] Hematocrit 36.3(L) 37.0 - 47.0 % [facility] Mean Corpuscular Volume 92.6 80.0 - 98.0 fL [facility] Mean Corpuscular Hemoglobin 30.6 27.0 - 33.0 pg [facility] Mean Corpuscular HGB Conc 33.1 31.0 - 35.0 g/dl [facility] Red Cell Distribution Width 12.3 11.0 - 16.0 % [facility] Platelet Count 264 160 - 400 X10*3/uL [facility] Mean Platelet Volume 11.1 9.4 - 12.3 fL [facility] NRBC Pct Auto 0.0 0.0 - 0.2 /100WBC [facility] NRBC Abs Auto 0.000 0.0 - 0.012 X10*3/uL [facility] 05/05/2024 11:2 3 AM EST 05/05/2024 11:23 AM EST us Generic External Data Provider LAB BLOOD ORDERAB LES Final Result Performing Organization Address City/State/[facility] Co de Phone Number [facility] [address] [place] [phone] * hCG, Total, Quantitative (05/05/2024 11:23 AM EST) HCG Quantitative <2 mIU/mL [facility] Comment:Weeks post LMP Appro ximate hCG(Last Menstrual Period) Range (mIU/ml)3 - 4 weeks 9 - 1304 - 5 weeks 75 - 2,6005 - 6 weeks 850 - 20,8006 - 7 weeks 4000 - 100,2007 - 12 weeks 11,500 - 289,44571 - 16 weeks 18,300 - 137,29597 - 29 weeks (2nd trimester) 1,400 - 53,96896 - 41 weeks (3rd trimester) 940 - [...] ORDERAB LES Final Result Performing Organization Address [facility] de Phone Number [facility] [address] [place] [phone] * LH (05/05/2024 11:23 AM EST) Lutenizing Hormone 7.8 mIU/mL [facility] Comment:Reference Range Foll icular Phase 1.9-12.5 Mid-Cycle Peak 8.7-76.3 Luteal Phase 0.5-16.9 Postmenopausal 10.0-54.7THIS TEST WAS PERFORMED AT:[facility] [address] [phone] OLIVAS MD 05/05/2024 11:2 3 AM EST 05/05/2024 11:23 AM EST Generic External Data Provider LAB BLOOD ORDERAB LES Final Result Performing Organization Address [facility] de [facility] Number [facility] [address] [place] [phone] * FSH (05/05/2024 11:23 AM EST) Follicle Stimulating Hormone 14.4 mIU/mL [facility] Comment:Reference Range Foll icular Phase 2.5-10.2 Mid-cycle Peak 3.1-17.7 Luteal Phase 1.5- 9.1 Postmenopausal 23.0-116.3THIS TEST WAS PERFORMED AT:[facility] [address] [phone] OLIVAS MD 05/05/2024 11:2 3 AM EST 05/05/2024 11:23 AM EST us Generic External Data Provider LAB BLOOD ORDERAB LES Final Result [facility] [address] [place] [phone] * Chlamydia/N. Gonorrhoeae RNA, TMA, Urogenitial (05/05/2024 11:19 AM EST) CT PCR NOT DETECTED Not Detect. [facility] Comment:A not detected test result [...] psychologicalconsequences. NG PCR NOT DETECTED Not Detect. [facility] Comment:A not detected test result [...] AM EST 05/05/2024 11:56 AM EST Narrative [facility] - 05/06/2024 7:21 AM EST Vaginal Generic External Data Provider LAB MICROBIOLOGY - GENERAL ORDERABLES Final Result Performing Organization Address [facility] de Phone Number [facility] [address] [place] [phone] * HPV DNA, Low/High Risk (05/05/2024 10:22 AM EST) HPV High Risk Negative Negative [facility] HPV Genotype 16 Negative Negative [facility] HPV Genotype 18 Negative Negative [facility] Comment:HPV testing performe d at [facility] (CLIA#[id number]), [address] [place] [address].Testing for HPV was performed using the [employer]I 6800system. The presence of HPV in [...] 2 AM EST 05/06/2024 7:18 AM EST Generic External Data Provider LAB BLOOD ORDERAB LES Final Result Performing Organization Address [facility] Co de Phone Number [facility] [address] [place] [phone] * Pap Smear (05/05/2024 10:22 AM EST) 05/05/2024 10:2 2 AM EST 05/06/2024 6:10 AM EST Narrative [facility] - 05/11/2024 9:16 AM EST ----- ------- Name: Jose Alberto Mcguire JeCorina galvan ?Age/Sex: 49/F ? : 1975 Unit#: [id number] ?? Attend Dr: Pj Posadas MD ?Re05/05/24 ?Status: DEP REF ? Location: HO.LNP ?Disch: ? ----- ------- SPEC : [id number] ? RECD: 05/06/24 ? STATUS: ??SOUT ? REQ NUM: [id number] ? LAURA: 05/05/24-2 ? SUBM DR: Pj Posadas MD ? [...] Copies To: ?? Marian Crook MD ?? [facility] ?? [address] ?? [place] [address] ?? [phone] ?? Pj Posadas MD ?? [facility] Women's Services ?? [address] ?? [place] [address] ?? [phone] ----- ------- Signed (signature on file) SCARLET Hernandez (ASCP) 05/11/24 0916 ? ----- ------- ? END OF REPORT ? us Generic External Data Provider LAB CYTOLOGY ORDE RABLES Final Result Performing Organization Address [facility]/ZIP Co de Phone Number [facility] [address] [place] [phone] * Hepatitis C Ab (03/27/2024 10:19 AM EST) Hepatitis C Antibody Nonreactive Nonreactive [facility] Comment:Antibodies to HCV no t detected; does not exclude early acuteHCV infection. 03/27/2024 10:1 9 AM EST 03/27/2024 10:19 AM EST Generic External Data Provider LAB BLOOD ORDERAB LES Final Result Performing Organization Address [facility] Phone Number [facility] [address] [place] [phone] * HIV-1/2 Antigen and Antibodies, Fourth Generation, with Reflexes (03/27/2024 10:19 AM EST) HIV AB/AG Nonreactive Nonreactive [facility] Comment:HIV-1 p24 Ag and/or HIV-1/HIV-2 Ab not detected.A test result that is nonreactive does not exclude thepossibility of exposure to or infection with HIV-1 and/orHIV-2. Nonreactive results in this assay for individualswith prior exposure to HIV-1 and/or HIV-2 may be due toantigen and antibody levels that are below the limit ofdetection of this assay.The [employer] HIV Ag/Ab Combo assay result andsupplemental assay results should be interpreted inconjunction with the patient's clinical presentation,history and other laboratory results. If the results areinconsistent with clinical evidence, additional testing issuggested to confirm the result. 03/27/2024 10:1 9 AM EST 03/27/2024 10:19 AM EST us Generic External Data Provider LAB BLOOD ORDERAB LES Final Result [facility] [address] [place] [phone] * Cologuard?? colon cancer screening (02/02/2024 9:15 AM EST) Cologuard Result Negative Negative 02/08/20 2:05 AM EST [facility] (CLIA #:[id number]) Comment: NEGATIVE TEST RESULT. A negative Cologuard [...] cancer. ??Following a negative Cologuard result, the [place] [employer] and U.S. Multi-Society Task Force screening guidelines recommend a Cologuard re-screening interval of 3 years. References: [employer] Guideline for Colorectal Cancer Screening: https://www.cancer.org/cancer/bkvei-nrpsvp-tdualg/zvxvdjngv-updyxlcjq-fkhdyeh/ac s-rec ommendations.html.; Hector DK, Julio Cesar CR, Janet TroncosoK, Colorectal Cancer Screening: Recommendations for Physicians and Patients from the U.S. Multi-Society Task Force on Colorectal Cancer Screening , Am J Gastroenterology 2017; 112:1746-7552. TEST DESCRIPTION: Composite algorithmic analysis of stool [...] Gonzalez et al, N Engl J Med 2014;370(14):4548-3880.) Cologuard may produce a false negative or false positive result (no colorectal cancer or precancerous polyp present at colonoscopy follow up). A negative Cologuard test result does not guarantee the absence of CRC or advanced adenoma (pre-cancer). The current Cologuard screening interval is every 3 years. ([place] [employer] and U.S. Multi-Society Task Force). Cologuard performance data in a 10,000 patient pivotal study using colonoscopy as the reference method can be accessed at the following location: www.[employer] [place]/results. Additional description of the Cologuard test process, warnings and precautions can be found at www.[employer].com. Stool specimen (specimen) Rectal contents / Unknown 02/02/2024 9:15 AM EST 02/03/2024 10:52 AM EST us Marian Crook MD LAB MOLECULAR DIAGNOSTIC S ORDERABLES Final Result [facility] (CLIA #:[id number]) [address] [place] [address], * BI Mammogram Screening Tomosynthesis Bilateral (12/05/2023 3:30 PM EDT) Anatomical Region Laterality Modality Breast Bilateral Mammography 12/05/2023 3:30 PM EDT Narrative 12/19/2023 8:58 AM EDT ? [facility] ? [address] ?[place], [place] [address] ? Mammography Report ? Signed ? Patient: Corina Nielsen ?MR#: [id number] ?? [id number] ? : 1975 ?Acct:[id number] ? Age/Sex: 48 / F ?ADM Date: 12/05/23 ? Loc: HO.MAMMO ? Attending Dr: Marian Crook MD ? Ordering Physician: Marian Crook MD ?Results: 1Ne ?? gative ? Date of Service: 12/05/23 ?Follow Up: 1 Year From Orig ?? inal Mammogram ? Procedure(s): MM tomosynthesis screening BI ?? Accession Number(s): [id number] ? cc: Marian Crook MD ? EXAMINATION: [...] DD/ 1530 ? TD/TT: 12/05/23 1540 ? Sanitary Aide: ? Procedure Note [place], Image - 12/19/2023 [facility] [address] [place] [address] Mammography Report Signed Patient: Yarelis Nielsen#: [id number] : 1975Acct:[id number] Age/Sex: 48 / FADM Date: 12/05/23 Loc: HO.MAMMO Attending Dr: Marian Crook MD Ordering Physician: Marian Crook MDResults: 1Ne gative Date of Service: 12/05/23Follow Up: 1 Year From Orig inal Mammogram Procedure(s): MM tomosynthesis screening BI Accession Number(s): [id number] cc: Marian Crook MD EXAMINATION: MM SCREENING [...] 12/19/23 0855 DD/ 1530 TD/TT: 12/05/23 1540 Sanitary Aide: Marian Crook MD IMG BI PROCEDURES Final Result from Last 3 Months or Most Recently Relevant to Health Maintenance Insurance [facility] Care Teams Harpooner Relationship Specialty Start Date End Date Marian Crook MD [address] [place] [address] PCP - General Internal Medicine 09/12/23
--- OUTSIDE RECORDS SUMMARY | 2024-07-31 15:05 | XMS_ITS | Encounter Summary ---
Author Organization [employer] Address [address] [facility] 7t [place] [address] Care Team Providers Care Tyre Builder Name Role Phone Marian Crook MD Primary Care Provider + Reason for Visit * Reason Onset Date Comments Med Refill 03/25/2024 Encounter Details Date Type Department Care Team (Late st Contact Info) Description 03/25/2024 Refill [facility] MEDICINE [address] [place] [address] Claritza Leonard DO [address] [place] [address] Social History Tobacco Use Types Packs/Day Years [...] Description 10/12/2024 3:30 PM EDT Office Visit [facility] MEDICINE [address] [place] [address] Marian Crook MD [address] [place] [address] documented as of this encounter Visit Diagnoses Not on filedocumented in this encounter Additional Health Concerns Assessment Noted Time PHQ-9 Depression Total Score: 22 024 2:02 PM EDT documented as of this encounter Care Teams Tyre Builder Relationship Specialty Start Date End Date Marian Crook MD [address], [place] [phone] PCP - General Internal Medicine 09/12/23 documented as of this encounter
--- OUTSIDE RECORDS SUMMARY | 2024-07-31 15:06 | XMS_ITS | Encounter Summary ---
Author Organization [employer] Address [address] [place] [address] [facility] [place] [address] Care Team Providers Care Options Trader Name Role Phone Marian Crook MD Primary Care Provider + Reason for Visit * Reason Comments Med Refill Encounter Details Date Type Department Care Team (Late st Contact Info) Description 11/27/2023 Refill [facility] MEDICINE [address] [place] [address] [phone] Marian Crook MD [address] [place], [place] [phone] Social History Tobacco Use Types Packs/Day Years [...] 3:30 PM EDT Office Visit [facility] MEDICINE [address] [place] [address] [phone] Marian Crook MD [address] [place], [place] [phone] documented as of this encounter Visit Diagnoses Not on filedocumented in this encounter Additional Health Concerns Assessment Noted Time PHQ-9 Depression Total Score: 16 06/18/ 023 3:25 PM EDT documented as of this encounter Care Teams Options Trader Relationship Specialty Start Date End Date Marian Crook MD [address] [place] [address] PCP - General Internal Medicine 09/12/23 documented as of this encounter
--- OUTSIDE RECORDS SUMMARY | 2024-07-31 15:06 | XMS_ITS | Encounter Summary ---
Author Organization [employer] Address [address] [place] [address] 7t [place] [address] Care Team Providers Care Salesperson Flowers Name Role Phone [facility] Primary Care Provider [phone] Marian Crook MD Primary Care Provider + Reason for Visit * Reason Onset Date Comments Nurse Triage 11/18/2022 Encounter Details Date Type Department Care Team ([facility] st Contact Info) Description 11/18/2022 Telephone [facility] MEDICINE [address] [place] [address] [facility] [address] [place] [address] Nurse Triage Social History Tobacco Use Types [...] Description 10/12/2024 3:30 PM EDT Office Visit [facility] MEDICINE [address] [place] [address] Marian Crook MD [address] [place] [address] documented as of this encounter Visit Diagnoses Not on filedocumented in this encounter Additional Health Concerns Assessment Noted Time PHQ-9 Depression Total Score: 16 06/18/ 023 3:25 PM EDT documented as of this encounter Care Teams Salesperson Flowers Relationship Specialty Start Date End Date Alisha Hook FNP [address] [place] [address] PCP - General Family Medicine 11/14/21 09/11/23 Marian Crook MD [address] [place] [phone] PCP - General Internal Medicine 09/12/23 documented as of this encounter
--- OUTSIDE RECORDS SUMMARY | 2024-07-31 15:06 | XMS_ITS | Encounter Summary ---
Author Organization [employer] Address [address] [facility] 7t [place] [address] Care Team Providers Care Site Safety Coordinator Name Role Phone Marian Crook MD Primary Care Provider + Reason for Visit * Reason Comments Med Refill Encounter Details Date Type Department Care Team (Late st Contact Info) Description 07/28/2024 Refill [facility] MEDICINE [address] [place], [place] [phone] Claritza Leonard DO [address] [place], [place] [phone] Social History Tobacco Use Types Packs/Day Years [...] 3:30 PM EDT Office Visit [facility] MEDICINE [address] [place] [address] Marian Crook MD [address] [place] [address] documented as of this encounter Visit Diagnoses Not on filedocumented in this encounter Additional Health Concerns Assessment Noted Time PHQ-9 Depression Total Score: 22 024 2:02 PM EDT documented as of this encounter Care Teams Site Safety Coordinator Relationship Specialty Start Date End Date Marian Crook MD [address] [place] [phone] PCP - General Internal Medicine 09/12/23 documented as of this encounter
--- OUTSIDE RECORDS SUMMARY | 2024-07-31 15:06 | XMS_ITS | Encounter Summary ---
Author Organization [employer] Address [address] [place] [address] [facility] [place] [address] Care Team Providers Care Case Management Social Worker Name Role Phone [facility] Primary Care Provider [phone] Marian Crook MD Primary Care Provider + Encounter Details Date Type Department Care Team (Late st Contact Info) Description 04/03/2023 Abstract [facility] MEDICINE [address] [place] [address] [phone] [place] [address] [address] Social History Tobacco Use Types Packs/Day Years [...] Description 10/12/2024 3:30 PM EDT Office Visit [facility] MEDICINE [address] [place] [address] [phone] Marian Crook MD [address] [place] [address] [phone] documented as of this encounter Visit Diagnoses Not on filedocumented in this encounter Additional Health Concerns Assessment Noted Time PHQ-9 Depression Total Score: 16 06/18/ 023 3:25 PM EDT documented as of this encounter Care Teams Case Management Social Worker Relationship Specialty Start Date End Date Alisha HookRACQUEL [address] [place] [address] PCP - General Family Medicine 11/14/21 09/11/23 Marian Crook MD [address] [place] [address] PCP - General Internal Medicine 09/12/23 documented as of this encounter
--- OUTSIDE RECORDS SUMMARY | 2024-07-31 15:06 | XMS_ITS | Encounter Summary ---
Author Organization [employer] Address [address] [facility] 7t [place] [address] Care Team Providers Care Cracker Off Name Role Phone Marian Crook MD Primary Care Provider + Reason for Visit * Reason Comments Med Refill Encounter Details Date Type Department Care Team (Late st Contact Info) Description 06/05/2024 Refill [facility] MEDICINE [address] [place], [place] [phone] Marian Crook MD [address] [place], [place] [phone] Social History Tobacco Use Types Packs/Day Years [...] 3:30 PM EDT Office Visit [facility] MEDICINE [address] [place] [address] Marian Crook MD [address] [place] [address] documented as of this encounter Visit Diagnoses Not on filedocumented in this encounter Additional Health Concerns Assessment Noted Time PHQ-9 Depression Total Score: 22 024 2:02 PM EDT documented as of this encounter Care Teams Cracker Off Relationship Specialty Start Date End Date Marian Crook MD [address] [place] [phone] PCP - General Internal Medicine 09/12/23 documented as of this encounter
--- OUTSIDE RECORDS SUMMARY | 2024-07-31 15:06 | XMS_ITS | Encounter Summary ---
Author Organization [employer] Address [address] [facility] 7 [place] [address] Care Team Providers Care Cutter Woodwind Reeds Name Role Phone Marian Crook MD Primary Care Provider + Reason for Visit * Reason Onset Date Comments Med Refill 06/02/2024 Encounter Details Date Type Department Care Team ([facility] st Contact Info) Description 06/02/[address] [facility] MEDICINE [address] [place], [place] [phone] Marian Crook MD [address] [place] [address] Med Refill Social History Tobacco Use Types [...] 10/12/2024 3:30 PM EDT Office Visit [facility] MEDICINE [address] [place] [address] Marian Crook MD [address] [place] [address] documented as of this encounter Visit Diagnoses Diagnosis Moderate persistent asthma without complication documented in this encounter Additional Health Concerns Assessment Noted Time PHQ-9 Depression Total Score: 22 024 2:02 PM EDT documented as of this encounter Care Teams Cutter Woodwind Reeds Relationship Specialty Start Date End Date Marian Crook MD [address] [place] [address] [phone] PCP - General Internal Medicine 09/12/23 documented as of this encounter
--- OUTSIDE RECORDS SUMMARY | 2024-07-31 15:06 | XMS_ITS | Clinical Summary ---
Author Organization [facility] Address [address] [place] [address] Phone Care Team Providers Care Bluing Oven Tender Name Role Phone Marian Crook MD Primary Care Provider Encounters Date Type Department Care Team Description 07/02/[address] [place] [address] Marian Crook MD Referral (Received [...] Info) Description 09/28/2024 1:00 PM EDT Appointment [facility] Xray [address] [place] [address] Health Maintenance Due Date Last [...] patient's age to complete this topic Insurance [facility] MEDICAID - [place] Care Teams Bluing Oven Tender Relationship Specialty Start Date End Date Marian Crook MD [address] [place] [phone] PCP - General Internal Medicine 07/08/24
== END 2024-07-31 15:04 | disposition home or self-care (01) ==
LOC: HO.MRI 15:03
PROVIDERS: PCP Internal Medicine; Visit Provider Orthopaedic Surgery
DX: S83.242A Other tear of medial meniscus, current injury, left knee, initial encounter (principal)
CPT/HCPCS: 73721

== ENCOUNTER → 2024-08-10 14:56 | Outpatient (REF) | payer OTHER, SELFPAY ==
--- OUTSIDE RECORDS SUMMARY | 2024-08-10 16:06 | XMS_ITS | Clinical Summary ---
Author Organization [facility] Address [address] [place] [address] Phone Care Team Providers Care Director Of Group Sales Name Role Phone Marian Crook MD Primary Care Provider Encounters Date Type Department Care Team Description 07/02/2024 Telephone [facility] Cardiology [address] [place] [address] Marian Crook MD Referral (Received [...] Info) Description 09/28/2024 1:00 PM EDT Appointment [facility] Xray [address] [place] [address] Health Maintenance Due Date Last [...] patient's age to complete this topic Insurance [facility] MEDICAID - [place] Care Teams Director Of Group Sales Relationship Specialty Start Date End Date Marian Crook MD [address] [place] [phone] PCP - General Internal Medicine 07/08/24
--- OUTSIDE RECORDS SUMMARY | 2024-08-10 16:06 | XMS_ITS | Clinical Summary ---
Author Organization [employer] Address [address] [place] [address] [address] [place] [address] Care Team Providers Care Senior Government Program Analyst Name Role Phone Marian Crook MD [...] related to patient's menorrhagia(she is followed by RESOURCE DEVELOPMENT DIRECTOR) + significant diuresis. Patient will have increase [...] this letter, she has appt with [facility] next week. I told her to reach out to legal director to help her write a letter so that housing give her some more time to get the letter from MH provider. She will res tart Effexor for anxiety and fu with me in 6m Encounters Date Type Department Care Team Description 08/04/2024 Results Follow-Up [address] [address] Lina Yarbrough, RN MR Knee w/o Contrast Left 08/03/[address] [address] Marian Crook MD FYI 07/28/[address] [address] Claritza Leonard DO 07/07/2024 Orders Only GENERIC EXTERNAL DATA DEPARTMENT Provider, Generic External Data 07/02/2024 11:45 AM EDT Office Visit [address] [address] Marian Crook MD Polyuria (Primary Dx); Dizziness; Chronic low back pain without sciatica, unspecified back pain laterality; Dizziness on standing; Palpitations 07/02/2024 Travel 06/30/[address] [address] Marian Crook MD Chart prep 06/25/2024 Orders Only GENERIC EXTERNAL DATA DEPARTMENT Provider, Generic External Data 06/24/2024 Orders Only [facility] [address] [place] [phone] Marian Crook MD Bilateral primary osteoarthritis of knee (Primary Dx) 06/23/2024 Patient Outreach [address] [address] Marian Crook MD Pre-visit Planning (SDOH screening negative and tobacco screening negative) 06/18/2024 Orders Only GENERIC EXTERNAL DATA DEPARTMENT Provider, Generic External Data 06/17/[address] [address] Marian Crook MD 06/05/2024 Refill [facility] [address] [place] [address] Marian Crook MD 06/05/2024 Refill [facility] [address] [place] [address] Claritza Leonard DO 06/04/2024 Population Health Risk Score [facility] () Department [address] [place] [phone] Provider, Population Health Generic 06/02/2024 Telephone [facility] [address] [place] [address] Marian Crook MD Med Refill 06/02/2024 Telephone [facility] [address] [place] [address] Marian Crook MD Referral 06/02/2024 Refill [facility] [address] [place] [address] Marian Crook MD 05/28/2024 3:15 PM EST Office Visit [facility] [address] [place] [phone] Tata Fink NP Chronic pain of both knees (Primary Dx) 05/26/2024 Telephone [facility] [address] [place] [address] Marian Crook MD Nurse Triage 05/13/2024 Refill [facility] [address] [place] [address] Marian Crook MD Moderate persistent asthma without complication from Last 3 Months Immunizations Immunization Administration Dates Next Due Hep B, Adolescent [...] Description 10/12/2024 3:30 PM EDT Office Visit [facility] [address] [place] [address] Marian Crook MD [address] [place] [address] Health Maintenance Due Date Last Done Comments CT Colonography 1975 Colonoscopy 1975 FIT 1975 FOBT 1975 Sigmoidoscopy 1975 Disability Screening 1975 Family Planning (PISQ) 1990 Hepatitis B [...] Procedure Name Priority Date/Time Associated Diagnosis Comments MR KNEE WO CONTRAST LEFT Routine 07/31/2024 3:12 PM EDT HEMATOXYLIN AND EOSIN STAIN Routine 07/07/2024 3:35 [...] PM EDT Chronic pain of both knees HPV DNA, LOW/HIGH RISK Routine 10:22 AM EST PAP SMEAR Routine 05/05/2024 10:22 AM EST HEPATITIS C ANTIBODY Routine [...] Recently Relevant to Health Maintenance Results * MR Knee w/o Contrast Left (07/31/2024 3:12 PM EDT) Anatomical Region Laterality Modality Magnetic Resonan ce 07/31/2024 3:12 PM EDT Narrative 08/02/2024 8:42 AM EDT ? [facility] ?[address] ?[place] [address] ? Magnetic Resonance Report ? Signed ? Patient: Corina Nielsen ?MR#: [id number] ?? [id number] ? : 1975 ?Acct:[id number] ? Age/Sex: 49 / F ?ADM Date: 07/31/24 ? Loc: HO.MRI ? Attending Dr: Merrick Toribio MD ? Ordering Physician: Merrick Toribio MD ?? Date of Service: 07/31/24 ?? Procedure(s): MR knee LT wo con ?? Accession Number(s): [id number] ? cc: Marian Crook MD; Merrick Toribio MD ? EXAMINATION: MRI LEFT KNEE WITHOUT CONTRAST ? HISTORY: S83.242A - Other tear of medial meniscus, current injury, left ?? knee ? COMPARISON: Relation is made with plain films of the left knee dated ?? 05/31/2024. ? TECHNIQUE: ??Coronal T1 and fat-suppressed proton density, sagittal ?? proton density and fat-suppressed proton density, and axial fat ?? suppressed T2 weighted MR images of the left knee were obtained. ? FINDINGS: ? Bone marrow: Bone marrow signal intensity is normal. ? Joint effusion: There is no joint effusion. ? Arteaga's cyst: There is an 8 mm loose body in a tiny Arteaga's cyst. ? Articular cartilage: There is moderate irregularity of the cartilage ?? involving the medial patellar facet. Cartilage of the medial and ?? lateral compartments is intact. ? Muscles/soft tissues: There is high signal intensity edema in the ?? vastus medialis muscle consistent with a partial tear. The remaining ?? visualized muscles demonstrate normal signal intensity. ? Anterior cruciate ligament: Intact ? Posterior cruciate ligament: Intact ? Medial collateral ligament: Intact ? Lateral collateral ligament: Intact ? Medial meniscus: Intact ? Lateral meniscus: Intact ? Flexor mechanism: The popliteus, gastrocnemius, and hamstring tendons ?? are intact. ? Quadriceps tendon: Intact ? Patellar tendon: Intact ? Patellar retinacula: Intact ? MR/MR knee LT wo con ?? IMPRESSION: ? 1. Partial tear of the vastus medialis muscle. ? 2. Moderate irregularity of the cartilage involving the medial patellar ?? facet. ? 3. 8 mm loose body in a Arteaga's cyst. ? Electronically signed by: ??Dorian Graham MD ??08/02/2024 08:40 AM EDT ?? RP ? Dictated By: ?Faberman,Dorian MD ? Signed By: ?<Electronically signed by Dorian Graham MD in OV> ?08/02/24 0840 ? DD/ 1512 ? TD/TT: 07/31/24 1522 ? Cleaning Attendant: ? Procedure Note Carli Mesa - 08/02/[address] [address] Magnetic Resonance Report Signed Patient: Yarelis Nielsen#: [id number] : 1975Acct:[id number] Age/Sex: 49 / FADM Date: 07/31/24 Loc: HO.MRI Attending Dr: Merrick Toribio MD Ordering Physician: Merrick Toribio MD Date of Service: 07/31/24 Procedure(s): MR knee LT wo con Accession Number(s): [id number] cc: Marian Crook MD; Merrick Toribio MD EXAMINATION: MRI LEFT KNEE WITHOUT CONTRAST HISTORY: S83.242A - Other tear of medial meniscus, current injury, left knee COMPARISON: Relation is made with plain films of the left knee dated 05/31/2024. TECHNIQUE: Coronal T1 and fat-suppressed proton density, sagittal proton density and fat-suppressed proton density, and axial fat suppressed T2 weighted MR images of the left knee were obtained. FINDINGS: Bone marrow: Bone marrow signal intensity is normal. Joint effusion: There is no joint effusion. Arteaga's cyst: There is an 8 mm loose body in a tiny Arteaga's cyst. Articular cartilage: There is moderate irregularity of the cartilage involving the medial patellar facet. Cartilage of the medial and lateral compartments is intact. Muscles/soft tissues: There is high signal intensity edema in the vastus medialis muscle consistent with a partial tear. The remaining visualized muscles demonstrate normal signal intensity. Anterior cruciate ligament: Intact Posterior cruciate ligament: Intact Medial collateral ligament: Intact Lateral collateral ligament: Intact Medial meniscus: Intact Lateral meniscus: Intact Flexor mechanism: The popliteus, gastrocnemius, and hamstring tendons are intact. Quadriceps tendon: Intact Patellar tendon: Intact Patellar retinacula: Intact MR/MR knee LT wo con IMPRESSION: 1. Partial tear of the vastus medialis muscle. 2. Moderate irregularity of the cartilage involving the medial patellar facet. 3. 8 mm loose body in a Arteaga's cyst. Electronically signed by: Dorian [place] MD 08/02/2024 08:40 AM EDT Dictated By: Dorian Graham MD Signed By: <Electronically signed by Dorian Graham MD in OV> 08/02/24 0840 DD/ 1512 TD/TT: 07/31/24 1522 Cleaning Attendant: us [facility] External Provider IMG MRI PROCEDURES Final Result * Hematoxylin and Eosin Stain (07/07/2024 3:35 PM EDT) Only the most recent of2 resultswithin the time period is included. 07/07/2024 3:35 PM EDT 07/08/2024 8:15 AM EDT [facility] - 07/09/2024 3:29 PM EDT ----- ------- Name: Corina Nielsen ?Age/Sex: 49/F ? : 1975 Unit#: [id number] ?? Attend Dr: Pj Posadas MD ?Re07/07/24 ?Status: DEP REF ? Location: HO.LNP ?Disch: ? ----- ------- SPEC : [id number] ? RECD: 07/08/24-814 ? STATUS: ??SOUT ? REQ NUM: [id number] ? LAURA: 07/07/24-6633 ? SUBM DR: Pj Posadas MD ? [...] Copies To: ?? Marian Crook MD ?? [facility] ?? [address] ?? [place] [address] ?? [phone] ?? Pj Posadas MD ?? [facility] ?? [address] ?? [place] [address] ?? [phone] ? CONTINUED ON NEXT PAGE ----- ------- Name: Corina Nielsen ?Age/Sex: 49/F ? : 1975 Unit#: [id number] ?? Attend Dr: Pj Posadas MD ?Re07/07/24 ?Status: DEP REF ? Location: HO.LNP ?Disch: ? ----- ------- SPEC : [id number] ? RECD: 07/08/24 ? STATUS: ??SOUT ? REQ NUM: [id number] ? LAURA: 07/07/24-0343 ? SUBM DR: Pj Posadas MD ? ENTERED: ??07/08/24 ?SP TYPE: Surgical ? OTHR DR: Marian Crook MD ? ORDERED: ??HE Stain/2, Gross Micro L4 ? ----- ------- Signed (signature on file) Maciej Elmore MD 07/09/24 1529 ? ----- ------- ? END OF REPORT ? us Generic External Data Provider LAB BLOOD ORDERAB LES Final Result [facility] [address] [place] [phone] * POCT Urinalysis (07/02/2024 12:42 PM [...] Date Urine 07/02/2024 12:4 2 PM EDT us Marian Crook MD POINT OF CARE TEST ENTER /EDIT ORDERABLES Final Result * High Sensitivity Troponin I (06/18/2024 11:08 AM EDT) Only the most recent of2 resultswithin the time period is included. TROPONIN I HIGH SENSITIVITY <2.7 <3.5 - 17.0 ng/L [facility] Comment:The Thomason high sens itivity Troponin-I results should beused in conjunction with other diagnostic information suchas ECG, clinical observations and information, and patientsymptoms to aid in the diagnosis of DE. 06/18/2024 11:0 8 AM EDT 06/18/2024 11:15 AM EDT us Generic External Data Provider LAB BLOOD ORDERAB LES Final Result [facility] [address] [place] [address] [phone] * XR Chest 1 View (06/18/2024 9:10 AM EDT) Anatomical Region Laterality Modality Chest Radiographic Irais ging 06/18/2024 9:10 AM EDT Narrative 06/18/2024 9:37 AM EDT ? [facility] ?[address] ?[place] [address] ?XRay Report ? Signed ? Patient: Corina Nielsen ?MR#: [id number] ?? [id number] ? : 1975 ?Acct:[id number] ? Age/Sex: 49 / F ?ADM Date: 03/28/25 ? Loc: HO.ED ? Attending Dr: ? Ordering Physician: Lisa Nguyen DO ?? Date of Service: 06/18/24 ?? Procedure(s): XR chest 1V ?? Accession Number(s): [id number] ? cc: Marian Crook MD; Lisa Nguyen [...] ? DD/ 0910 ? TD/TT: 06/18/24924 ? Cleaning Attendant: ? Procedure Note Carli Mesa - 06/18/[address] [address] XRay Report Signed Patient: Yarelis Nielsen#: [id number] : 1975Acct:[id number] Age/Sex: 49 / FADM Date: 06/18/24 Loc: HO.ED Attending Dr: Ordering Physician: Lisa Nguyen DO Date of Service: 06/18/24 Procedure(s): XR chest 1V Accession Number(s): [id number] cc: Marian Crook MD; Lisa Nguyen DO [...] in OV> 06/18/24933 DD/ 9 TD/TT: 06/18/24924 Cleaning Attendant: [facility] External Provider IMG XR PROCEDURES Final Result * US VENOUS DUPLEX LE LT (06/18/2024 9:09 AM EDT) Anatomical Region Laterality Modality Abdomen Ultrasound 06/18/2024 9:09 AM EDT Narrative 06/18/2024 9:20 AM EDT ? [facility] ?[address] ?[place] [address] ? Ultrasound Report ? Signed ? Patient: Abrams James,Corina ?MR#: [id number] ?? [id number] ? : 1975 ?Acct:[id number] ? Age/Sex: 49 / F ?ADM Date: 06/18/24 ? Loc: HO.ED ? Attending Dr: ? Ordering Physician: Lisa Nguyen DO ?? Date of Service: 06/18/24 ?? Procedure(s): US venous duplex LE LT ?? Accession Number(s): [id number] ? cc: Marian Crook MD; Lisa Nguyen [...] MD in OV> ? 06/18/[address] ? DD/ 0909 ? TD/TT: 06/18/24 0914 ? Cleaning Attendant: ? Procedure Note Donotannater, Image - 06/18/[address] [address] Ultrasound Report Signed Patient: Yarelis Nielsen#: [id number] : 1975Acct:[id number] Age/Sex: 49 / FADM Date: 06/18/24 Loc: HO.ED Attending Dr: Ordering Physician: Lisa Nguyen DO Date of Service: 06/18/24 Procedure(s): US venous duplex LE LT Accession Number(s): [id number] cc: Marian Crook MD; Lisa Nguyen DO [...] MDin OV> 06/18/24917 DD/ 8 TD/TT: 06/18/24913 Cleaning Attendant: [facility] External Provider IMG US PROCEDURES Final Result * D Dimer High Sensitivity (06/18/2024 8:29 AM EDT) Pathologist [facility] D Dimer High Sensitivity <150 NG/ML [facility] Comment:D-DIMER HS REFERENCE RANGENote: Our [...] Provider LAB BLOOD ORDERAB LES Final Result [facility] [address] [place] [address] [phone] * (ABNORMAL) CBC auto differential (06/18/2024 8:29 AM EDT) Pathologist [facility] White Blood Count 6.1 4.8 - 10.8 X10*3/uL [facility] Red Blood Count 4.36 4.20 - 5.50 X10*6/uL [facility] Hemoglobin 13.5 12.0 - 16.0 g/dl [facility] Hematocrit 40.2 37.0 - 47.0 % [facility] Mean Corpuscular Volume 92.2 80.0 - 98.0 fL [facility] Mean Corpuscular Hemoglobin 31.0 27.0 - 33.0 pg [facility] Mean Corpuscular HGB Conc 33.6 31.0 - 35.0 g/dl [facility] Red Cell Distribution Width 13.5 11.0 - 16.0 % [facility] Platelet Count 192 160 - 400 X10*3/uL [facility] Mean Platelet Volume 10.5 9.4 - 12.3 fL [facility] Neutrophils Percent Auto 76.0(H) 45 - 73 % [facility] Imm Gran Pct Auto 0.3 0.0 - 0.4 % [facility] Lymphocytes Percent Auto 16.3(L) 20 - 40 % [facility] Monocytes Percent Auto 6.2 2 - 11 % [facility] Eosinophils Percent Auto 0.7 0 - 4 % [facility] Basophils Percent Auto 0.5 0 - 2 % [facility] NRBC Pct Auto 0.0 0.0 - 0.2 /100WBC [facility] Neutrophils Absolute Auto 4.7 2.0 - 8.3 x10*3/uL [facility] Imm Gran Abs Auto 0.02 0.00 - 0.03 X10*3/uL [facility] Lymphocytes Absolute Auto 1.0(L) 1.2 - 4.9 X10*3/uL [facility] Monocytes Absolute Auto 0.4 0.1 - 1.2 X10*3/uL [facility] Eosinophils Absolute Auto 0.0 0.0 - 0.4 X10*3/uL [facility] Basophils Absolute Auto 0.0 0.0 - 0.2 X10*3/uL [facility] NRBC Abs Auto 0.000 0.0 - 0.012 X10*3/uL [facility] 06/18/2024 8:29 AM EDT 06/18/2024 8:32 AM EDT us Generic External Data Provider LAB BLOOD ORDERAB LES Final Result [facility] [address] [place] [phone] * Prothrombin Time-INR (06/18/2024 8:29 AM EDT) Prothrombin Time 12.3 10.9 - 12.4 SEC [facility] INTERNATIONAL NORM RATIO 1.1 0.9 - 1.1 [facility] Comment:INTERNATIONAL NORMAL IZED RATIO (INR) [...] ORDERAB LES Final Result Performing Organization Address [facility] de Phone Number [facility] [address] [place] [phone] * Magnesium (06/18/2024 8:29 AM EDT) Pathologist [facility] Magnesium 1.9 1.6 - 2.6 mg/dL [facility] 06/18/2024 8:29 AM EDT 06/18/2024 8:32 AM EDT [facility] External Data Provider LAB BLOOD ORDERAB LES Final Result Performing Organization Address [facility] Phone Number [facility] [address] [place] [phone] * (ABNORMAL) Comprehensive Metabolic Panel (06/18/2024 8:29 AM EDT) Pathologist [facility] Sodium 138 135 - 145 mmol/L [facility] Potassium 3.9 3.3 - 5.1 mmol/L [facility] Chloride 112(H) 96 - 108 mmol/L [facility] Carbon Dioxide 21(L) 22 - 29 mmol/L [facility] Anion Gap 9(L) 12 - 20 [facility] Urea Nitrogen (BUN) 15 9 - 16 mg/dL [facility] Creatinine, Serum 0.70 0.5 - 1.4 mg/dL [facility] Creatinine Clr Calc Pharmacy 95.9 [facility] Comment:Provided height and weight: 160.02 cm,77.7 kg.eGFR (calculated from the MDRD study equation) and eCrCl(calculated from the Cockcroft-Gault equation) are based ondifferent parameters and may not yield comparable results.If eCrCl result is absurd, please check patient'sheight/weight. Estimated Glomerular Filt Rate >60 [facility] Comment:Chronic Kidney Disea se: Estimated GFR < 60 mL/min/[id number] Kidney Disease: Estimated GFR < 15 mL/min/1.73m2 Glucose 93 60 - 115 mg/dL [facility] Calcium 8.9 8.4 - 10.2 mg/dL [facility] Bilirubin, Total 0.5 0.0 - 1.0 mg/dL [facility] Aspartate Amino Transferase 21 5 - 31 U/L [facility] Alanine Aminotransferase 16 0 - 31 U/L [facility] Total Protein 7.0 6.5 - 8.0 g/dL [facility] Albumin Level 4.1 3.5 - 5.0 g/dL [facility] Alkaline Phosphatase 64 39 - 117 U/L [facility] 06/18/2024 8:29 AM EDT 06/18/2024 8:32 AM EDT us Generic External Data Provider LAB BLOOD ORDERAB LES Final Result Performing Organization Address [facility] Co de Phone Number [facility] [address] [place] [phone] * XR Knee 4+ Views Right (05/31/2024 2:29 PM EDT) Anatomical Region Laterality Modality Lower Extremities, Knee Right Radiogra phic Imaging 05/31/2024 2:29 PM EDT Narrative 05/31/2024 3:04 PM EDT ?[facility] ?[address] ?[place] [address] ?XRay Report ? Signed ? Patient: Jose Alberto James,Corina ?MR#: [id number] ?? [id number] ? : 1975 ?Acct:[id number] ? Age/Sex: 49 / F ?ADM Date: 03/10/25 ? Loc: HO.HHCX ? Attending Dr: Tata Fink ? Ordering Physician: Tata Fink ?? Date of Service: 05/31/24 ?? Procedure(s): XR knee RT 4V ?? Accession Number(s): [id number] ? cc: Tata Fink ? EXAMINATION: ?? [...] DD/ 1429 ? TD/TT: 05/31/24 1455 ? Cleaning Attendant: ? Procedure Note Bonita, Image - 05/31/[address] [address] XRay Report Signed Patient: Baljit NielsenJustina#: [id number] : 1975Acct:[id number] Age/Sex: 49 / FADM Date: 05/31/24 Loc: HO.HHCX Attending Dr: Tata Fink Ordering Physician: Tata Fink Date of Service: 05/31/24 Procedure(s): XR knee RT 4V Accession Number(s): [id number] cc: Tata Fink EXAMINATION: XR KNEE, RIGHT [...] 05/31/24 1501 DD/ 1429 TD/TT: 05/31/24 1455 Cleaning Attendant: Tata Fink NP IMG XR PROCEDURES Final Result * XR Knee 4+ Views Left (05/31/2024 2:29 PM EDT) Anatomical Region Laterality Modality Lower Extremities, Knee Left Radiogra phic Imaging 05/31/2024 2:29 PM EDT Narrative 05/31/2024 3:05 PM EDT ?[facility] ?[address] ?[place] [address] ?XRay Report ? Signed ? Patient: Corina Nielsen ?MR#: [id number] ?? [id number] ? : 1975 ?Acct:[id number] ? Age/Sex: 49 / F ?ADM Date: 05/31/24 ? Loc: HO.HHCX ? Attending : Tata Fink ? Ordering Physician: Tata Fink ?? Date of Service: 05/31/24 ?? Procedure(s): XR knee LT 4V ?? Accession Number(s): [id number] ? cc: Tata Fink ? EXAMINATION: ?? [...] DD/ 1429 ? TD/TT: 05/31/24 1455 ? Cleaning Attendant: ? Procedure Note Donlolly, Carli - 05/31/[address] [address] XRay Report Signed Patient: Yarelis Nielsen#: [id number] : 1975Acct:[id number] Age/Sex: 49 / FADM Date: 05/31/24 Loc: HO.HHCX Attending Dr: Tata Fink Ordering Physician: Tata Fink Date of Service: 05/31/24 Procedure(s): XR knee LT 4V Accession Number(s): [id number] cc: Tata Fink EXAMINATION: XR KNEE, LEFT [...] 05/31/24 1502 DD/ 1429 TD/TT: 05/31/24 1455 Cleaning Attendant: Tata Fink NP IMG XR PROCEDURES Final Result * HPV DNA, Low/High Risk (05/05/2024 10:22 AM EST) HPV High Risk Negative Negative [facility] HPV Genotype 16 Negative Negative [facility] HPV Genotype 18 Negative Negative [facility] Comment:HPV testing performe d at [facility] (CLIA#[id number]), [address] [place] [phone].Testing for HPV was performed using the [employer] PowerFile[employer]system. The presence of HPV in the female [...] Provider LAB BLOOD ORDERAB LES Final Result [facility] [address] [place] [phone] * Pap Smear (05/05/2024 10:22 AM EST) 05/05/2024 10:2 2 AM EST 05/06/2024 6:10 AM EST Narrative [facility] - 05/11/2024 9:16 AM EST ----- ------- Name: Corina Nielsen ?Age/Sex: 49/F ? : 1975 Unit#: [id number] ?? Attend Dr: Pj Posadas MD ?Re05/05/24 ?Status: DEP REF ? Location: HO.LNP ?Disch: ? ----- ------- SPEC : [id number] ? RECD: 05/06/24 ? STATUS: ??SOUT ? REQ NUM: [id number] ? LAURA: 05/05/24-2 ? SUBM DR: Pj [...] Copies To: ?? Marian Crook MD ?? [facility] ?? [address] ?? [place] [address] ?? [phone] ?? Pj Posadas MD ?? [facility] ?? [address] [facility] [address] ?? [place] [address] ?? [phone] ----- ------- Signed (signature on file) SCARLET Hernandez (ASCP) 05/11/24 0916 ? ----- ------- ? END OF REPORT ? us Generic External Data Provider LAB CYTOLOGY ORDE RABLES Final Result Performing Organization Address [facility] Co de Phone Number [facility] [address] [place] [phone] * Hepatitis C Ab (03/27/2024 10:19 AM EST) Hepatitis C Antibody Nonreactive Nonreactive [facility] Comment:Antibodies to HCV no t detected; does not exclude early acuteHCV infection. 03/27/2024 10:1 9 AM EST 03/27/2024 10:19 AM EST Generic External Data Provider LAB BLOOD ORDERAB LES Final Result Performing Organization Address [facility] de Phone Number [facility] [address] [place] [phone] * HIV-1/2 Antigen and Antibodies, Fourth Generation, with Reflexes (03/27/2024 10:19 AM EST) Pathologist [facility] HIV AB/AG Nonreactive Nonreactive [facility] Comment:HIV-1 p24 Ag and/or HIV-1/HIV-2 Ab not detected.A test result that is nonreactive does not exclude thepossibility of exposure to or infection with HIV-1 and/orHIV-2. Nonreactive results in this assay for individualswith prior exposure to HIV-1 and/or HIV-2 may be due toantigen and antibody levels that are below the limit ofdetection of this assay.The [employer] HIV Ag/Ab Combo assay result andsupplemental assay results should be interpreted inconjunction with the patient's clinical presentation,history and other laboratory results. If the results areinconsistent with clinical evidence, additional testing issuggested to confirm the result. 03/27/2024 10:1 9 AM EST 03/27/2024 10:19 AM EST Generic External Data Provider LAB BLOOD ORDERAB LES Final Result Performing Organization Address [facility] Co de Phone Number [facility] [address] [place] [phone] * Cologuard?? colon cancer screening (02/02/2024 9:15 AM EST) Pathologist [facility] Cologuard Result Negative Negative 02/08/20 2:05 AM EST [facility] (CLIA #:[id number]) Comment: NEGATIVE TEST RESULT. A negative Cologuard [...] cancer. ??Following a negative Cologuard result, the [employer] and U.S. Multi-Society Task Force screening guidelines recommend a Cologuard re-screening interval of 3 years. References: [place] Guideline for Colorectal Cancer Screening: https://www.cancer.org/cancer/vdhfn-bbgsin-agvfpb/tfvkrbsnq-dnjeaeczw-vgodyok/ac s-rec ommendations.html.; Hector ABERNATHY, Julio Cesar CR, Janet TroncosoK, Colorectal Cancer Screening: Recommendations for Physicians and Patients from the U.S. Multi-Society Task Force on Colorectal Cancer Screening , Am J Gastroenterology 2017; 112:3832-2270. TEST DESCRIPTION: Composite algorithmic analysis of stool [...] (Isadora Rodriguez al, N Engl J Med 2014;370(14):1298-4260.) Cologuard may produce a false negative or false positive result (no colorectal cancer or precancerous polyp present at colonoscopy follow up). A negative Cologuard test result does not guarantee the absence of CRC or advanced adenoma (pre-cancer). The current Cologuard screening interval is every 3 years. ([place] [employer] and U.S. Multi-Society Task Force). Cologuard performance data in a 10,000 patient pivotal study using colonoscopy as the reference method can be accessed at the following location: www.YeahMobi/results. Additional description of the Cologuard test process, warnings and precautions can be found at [email or web address] [email or web address]. Stool specimen (specimen) Rectal contents / Unknown 02/02/2024 9:15 AM EST 02/03/2024 10:52 AM EST us Marian Crook MD LAB MOLECULAR DIAGNOSTIC S ORDERABLES Final Result [facility] (CLIA #:[id number]) [place] [address], [place] [phone] * BI Mammogram Screening Tomosynthesis Bilateral (12/05/2023 3:30 PM EDT) Anatomical Region Laterality Modality Breast Bilateral Mammography 12/05/2023 3:30 PM EDT Narrative 12/19/2023 8:58 AM EDT ? [facility] ? [address] ?[place], [place] [address] ? Mammography Report ? Signed ? Patient: Abrams James,Corina ?MR#: [id number] ?? [id number] ? : 1975 ?Acct:[id number] ? Age/Sex: 48 / F ?ADM Date: 12/05/23 ? Loc: HO.MAMMO ? Attending Dr: Marian Crook MD ? Ordering Physician: Marian Crook MD ?Results: 1Ne ?? gative ? Date of Service: 12/05/23 ?Follow Up: 1 Year From Orig ?? inal Mammogram ? Procedure(s): MM tomosynthesis screening BI ?? Accession Number(s): [id number] ? cc: Marian Crook MD ? EXAMINATION: [...] DD/ 1530 ? TD/TT: 12/05/23 1540 ? Cleaning Attendant: ? Procedure Note Don[place], Image - 12/19/2023 [facility] [address] [place] [address] Mammography Report Signed Patient: Yarelis Nielsen#: [id number] : 1975Acct:[id number] Age/Sex: 48 / FADM Date: 12/05/23 Loc: HO.MAMMO Attending Dr: Marian Crook MD Ordering Physician: Marian Crook MDResults: 1Ne gative Date of Service: 12/05/23Follow Up: 1 Year From Orig inal Mammogram Procedure(s): MM tomosynthesis screening BI Accession Number(s): [id number] cc: Marian Crook MD EXAMINATION: MM SCREENING [...] 12/19/23 0855 DD/ 1530 TD/TT: 12/05/23 1540 Cleaning Attendant: Marian Crook MD IMG BI PROCEDURES Final Result from Last 3 Months or Most Recently Relevant to Health Maintenance Insurance [facility] Care Teams Senior Government Program Analyst Relationship Specialty Start Date End Date Marian Crook MD [address] [place] [phone] PCP - General Internal Medicine 09/12/23
--- OUTSIDE RECORDS SUMMARY | 2024-08-10 16:06 | XMS_ITS | Encounter Summary ---
Author Organization [employer] Address [address] [place] [address] 7 [place] [address] Care Team Providers Care Maintenance Equipment Operator Name Role Phone Marian Crook MD Primary Care Provider + Reason for Visit * Reason Onset Date Comments Med Refill 06/02/2024 Encounter Details Date Type Department Care Team ([facility] st Contact Info) Description 06/02/2024 Telephone [facility] MEDICINE [address] [place] [address] Marian Crook MD [address] [place] [address] Med Refill Social History Tobacco Use Types [...] 3:30 PM EDT Office Visit [facility] [address] [place] [address] Marian Crook MD [address] [place] [address] documented as of this encounter Visit Diagnoses Diagnosis Moderate persistent asthma without complication documented in this encounter Additional Health Concerns Assessment Noted Time PHQ-9 Depression Total Score: 22 024 2:02 PM EDT documented as of this encounter Care Teams Maintenance Equipment Operator Relationship Specialty Start Date End Date Marian Crook MD [address] [place] [address] [phone] PCP - General Internal Medicine 09/12/23 documented as of this encounter
--- OUTSIDE RECORDS SUMMARY | 2024-08-10 16:06 | XMS_ITS | Encounter Summary ---
Author Organization [employer] Address [address] [place] [address] 7 [place] [address] Care Team Providers Care Ciaio Counter Molder Name Role Phone Marian Crook MD Primary Care Provider + Reason for Visit * Reason Onset Date Comments FYI 08/03/2024 Encounter Details Date Type Department Care Team ([facility] Contact Info) Description 08/03/2024 Telephone [facility] MEDICINE [address] [place], [place] [phone] Marian Crook MD [address] [place] [address] FYI Social History Tobacco Use Types Packs/Day Years [...] encounter Miscellaneous Notes * Telephone Encounter - Hang Prieto - 08/03/2024 1:04 PM EDT TC to Daughter due to pt's phone not ringing . Daughter advised will have mother call back in . Please let pt know she has an upcoming visit with : [facility]iology 09/28 1pm . Should be at registration by 12:[address] documented in this encounter Plan of Treatment Upcoming Encounters Date Type Department Care Team (Late st Contact Info) Description 10/12/2024 3:30 PM EDT Office Visit [facility] MEDICINE [address] [place] [address] Marian Crook MD [address] [place] [address] documented as of this encounter Visit Diagnoses Not on filedocumented in this encounter Additional Health Concerns Assessment Noted Time PHQ-9 Depression Total Score: 22 024 2:02 PM EDT documented as of this encounter Care Teams Ciaio Counter Molder Relationship Specialty Start Date End Date Marian Crook MD [address] [place] [phone] PCP - General Internal Medicine 09/12/23 documented as of this encounter
--- OUTSIDE RECORDS SUMMARY | 2024-08-10 16:06 | XMS_ITS | Encounter Summary ---
Author Organization [employer] Address [address] [place] [address] 7 [place] [address] Care Team Providers Care Swing Saw Operator Name Role Phone Marian Crook MD Primary Care Provider + Reason for Visit * Reason Onset Date Comments Med Refill 03/25/2024 Encounter Details Date Type Department Care Team ([facility] st Contact Info) Description 03/25/2024 Refill [facility] MEDICINE [address] [place] [address] Marian Crook MD [address] [place] [address] Moderate persistent asthma without complication Social History [...] Description 10/12/2024 3:30 PM EDT Office Visit [facility] [address] [place] [address] Marian Crook MD [address] [place] [address] documented as of this encounter Visit Diagnoses Diagnosis Moderate persistent asthma without complication documented in this encounter Additional Health Concerns Assessment Noted Time PHQ-9 Depression Total Score: 22 024 2:02 PM EDT documented as of this encounter Care Teams Swing Saw Operator Relationship Specialty Start Date End Date Marian Crook MD [address] [place] [address] PCP - General Internal Medicine 09/12/23 documented as of this encounter
--- OUTSIDE RECORDS SUMMARY | 2024-08-10 16:06 | XMS_ITS | Encounter Summary ---
Author Organization [employer] Address [address] [place] [address] 7 [place] [address] Care Team Providers Care Tilt Tray Driver Name Role Phone Marian Crook MD Primary Care Provider + Reason for Visit * Reason Comments Med Refill Encounter Details Date Type Department Care Team ([facility] st Contact Info) Description 06/05/2024 Refill [facility] MEDICINE [address] [place], [place] [phone] Marian Crook MD [address] [place] [address] Social History Tobacco Use Types Packs/Day Years [...] Description 10/12/2024 3:30 PM EDT Office Visit [facility] MEDICINE [address] [place] [address] Marian Crook MD [address] [place] [address] documented as of this encounter Visit Diagnoses Not on filedocumented in this encounter Additional Health Concerns Assessment Noted Time PHQ-9 Depression Total Score: 22 024 2:02 PM EDT documented as of this encounter Care Teams Tilt Tray Driver Relationship Specialty Start Date End Date Mairan Crook MD [address] [place] [phone] PCP - General Internal Medicine 09/12/23 documented as of this encounter
--- OUTSIDE RECORDS SUMMARY | 2024-08-10 16:06 | XMS_ITS | Encounter Summary ---
Author Organization [employer] Address [address] [place] [address] 7 [place] [address] Care Team Providers Care Slasher Tender Helper Name Role Phone Marian Crook MD Primary Care Provider + Reason for Visit * Reason Onset Date Comments Med Refill 03/25/2024 Encounter Details Date Type Department Care Team ([facility] st Contact Info) Description 03/25/2024 Refill [facility] MEDICINE [address] [place] [address] Marian Crook MD [address] [place] [address] Social History Tobacco Use Types Packs/Day Years [...] Description 10/12/2024 3:30 PM EDT Office Visit [facility] MEDICINE [address] [place] [address] Marian Crook MD [address] [place] [address] documented as of this encounter Visit Diagnoses Not on filedocumented in this encounter Additional Health Concerns Assessment Noted Time PHQ-9 Depression Total Score: 22 024 2:02 PM EDT documented as of this encounter Care Teams Slasher Tender Helper Relationship Specialty Start Date End Date Marian Crook MD [address] [place] [address] [phone] PCP - General Internal Medicine 09/12/23 documented as of this encounter
--- OUTSIDE RECORDS SUMMARY | 2024-08-10 16:06 | XMS_ITS | Encounter Summary ---
Author Organization [employer] Address [address] [place] [address] 7 [place] [address] Care Team Providers Care End Polisher Name Role Phone [facility] Primary Care Provider [phone] Marian Crook MD Primary Care Provider + Reason for Visit * Reason Onset Date Comments Nurse Triage 11/18/2022 Encounter Details Date Type Department Care Team (Late st Contact Info) Description 11/18/2022 Telephone [facility] MEDICINE [address] [place] [address] [facility] [address] [place] [address] Nurse Triage Social History Tobacco Use Types [...] dry vaginal area making intercourse painful. Apt withJUAN Altamirano 12/06/22 @ 330pm. Insurance is verified [...] Description 10/12/2024 3:30 PM EDT Office Visit [facility] MEDICINE [address] [place] [address] Marian Crook MD [address] [place] [address] documented as of this encounter Visit Diagnoses Not on filedocumented in this encounter Additional Health Concerns Assessment Noted Time PHQ-9 Depression Total Score: 16 06/18/ 023 3:25 PM EDT documented as of this encounter Care Teams End Polisher Relationship Specialty Start Date End Date Alisha Hook FNP [address] [place] [address] PCP - General Family Medicine 11/14/21 09/11/23 Marian Crook MD [address] [place] [phone] PCP - General Internal Medicine 09/12/23 documented as of this encounter
--- OUTSIDE RECORDS SUMMARY | 2024-08-10 16:06 | XMS_ITS | Encounter Summary ---
Author Organization [employer] Address [address] [place] [address], [place] [address] Care Team Providers Care Independent Beauty Consultant Name Role Phone [facility] Primary Care Provider [phone] Marian Crook MD Primary Care Provider + Encounter Details Date Type Department Care Team (Late st Contact Info) Description 04/03/2023 Abstract [facility] [address] [place] [address] [phone] [place] [address] [address] Social History Tobacco Use Types Packs/Day Years [...] Office Visit [facility] [address] [place] [address] [phone] Marian Crook MD [address] [place] [address] [phone] documented as of this encounter Visit Diagnoses Not on filedocumented in this encounter Additional Health Concerns Assessment Noted Time PHQ-9 Depression Total Score: 16 023 3:25 PM EDT documented as of this encounter Care Teams Independent Beauty Consultant Relationship Specialty Start Date End Date Miladys RACQUEL Brito [address] [place] [address] PCP - General Family Medicine 11/14/21 09/11/23 Marian Crook MD [address] [place] [address] PCP - General Internal Medicine 09/12/23 documented as of this encounter
--- OUTSIDE RECORDS SUMMARY | 2024-08-10 16:06 | XMS_ITS | Encounter Summary ---
Author Organization [employer] Address [address] [place] [address] 7 [place] [address] Care Team Providers Care Medical Officer Name Role Phone Marian Crook MD Primary Care Provider + Reason for Visit * Reason Comments Med Change Request Encounter Details Date Type Department Care Team ([facility] st Contact Info) Description 06/17/2024 Refill [facility] MEDICINE [address] [place], [place] [phone] Marian Crook MD [address] [place] [address] Social History Tobacco Use Types Packs/Day Years [...] Description 10/12/2024 3:30 PM EDT Office Visit [facility] MEDICINE [address] [place] [address] Marian Crook MD [address] [place] [address] documented as of this encounter Visit Diagnoses Not on filedocumented in this encounter Additional Health Concerns Assessment Noted Time PHQ-9 Depression Total Score: 22 024 2:02 PM EDT documented as of this encounter Care Teams Medical Officer Relationship Specialty Start Date End Date Marian Crook MD [address] [place] [phone] PCP - General Internal Medicine 09/12/23 documented as of this encounter
--- OUTSIDE RECORDS SUMMARY | 2024-08-10 16:06 | XMS_ITS | Encounter Summary ---
Author Organization [employer] Address [address] [place] [address] 7 [place] [address] Care Team Providers Care Welder Shielded Metal Arc Name Role Phone Marian Crook MD Primary Care Provider + Reason for Visit * Reason Onset Date Comments Med Refill 03/25/2024 Encounter Details Date Type Department Care Team ([facility] st Contact Info) Description 03/25/2024 Refill [facility] [address] [place] [address] Claritza Leonard DO [address] [place] [address] Social History Tobacco Use Types Packs/Day Years [...] 3:30 PM EDT Office Visit [facility] MED[facility]INE [address] [place] [address] Marian Crook MD [address] [place] [address] documented as of this encounter Visit Diagnoses Not on filedocumented in this encounter Additional Health Concerns Assessment Noted Time PHQ-9 Depression Total Score: 22 024 2:02 PM EDT documented as of this encounter Care Teams Welder Shielded Metal Arc Relationship Specialty Start Date End Date Marian Crook MD [address] [place] [address] [phone] PCP - General Internal Medicine 09/12/23 documented as of this encounter
--- OUTSIDE RECORDS SUMMARY | 2024-08-10 16:06 | XMS_ITS | Encounter Summary ---
Author Organization [employer] Address [address] [place] [address] [place], [place] [address] Care Team Providers Care Child Care Supervisor Name Role Phone Marian Crook MD Primary Care Provider + Reason for Visit * Reason Comments Med Refill Encounter Details Date Type Department Care Team (Late Contact Info) Description 11/27/2023 Refill [facility] MEDICINE [address] [place] [address] [phone] Marian Crook MD [address] [place], [place] [phone] Social History Tobacco Use Types Packs/Day Years [...] Visit [facility] MEDICINE [address] [place] [address] [phone] Marian Crook MD [address] [place], [place] [phone] documented as of this encounter Visit Diagnoses Not on filedocumented in this encounter Additional Health Concerns Assessment Noted Time PHQ-9 Depression Total Score: 16 023 3:25 PM EDT documented as of this encounter Care Teams Child Care Supervisor Relationship Specialty Start Date End Date Marian Crook MD [address] [place] [address] PCP - General Internal Medicine 09/12/23 documented as of this encounter
--- OUTSIDE RECORDS SUMMARY | 2024-08-10 16:06 | XMS_ITS | Encounter Summary ---
Author Organization [employer] Address [address] [place] [address] 7 [place] [address] Care Team Providers Care Cleaning Handyman Name Role Phone Marian Crook MD Primary Care Provider + Reason for Visit * Reason Onset Date Comments Med Refill 03/25/2024 Encounter Details Date Type Department Care Team ([facility] st Contact Info) Description 03/25/2024 Refill [facility] MEDICINE [address] [place] [address] Claritza Leonard DO [address] [place] [address] Social History Tobacco Use Types Packs/Day Years [...] Description 10/12/2024 3:30 PM EDT Office Visit [facility] MEDICINE [address] [place] [address] Marian Crook MD [address] [place] [address] documented as of this encounter Visit Diagnoses Not on filedocumented in this encounter Additional Health Concerns Assessment Noted Time PHQ-9 Depression Total Score: 22 024 2:02 PM EDT documented as of this encounter Care Teams Cleaning Handyman Relationship Specialty Start Date End Date Marian Crook MD [address] [place] [address] [phone] PCP - General Internal Medicine 09/12/23 documented as of this encounter
== END ==
LOC: HO.CARD 14:56
PROVIDERS: PCP Internal Medicine; Visit Provider Internal Medicine
DX: R00.2 Palpitations (principal); R42 Dizziness and giddiness
CPT/HCPCS: 93225

== ENCOUNTER 2024-08-12 16:02 | Outpatient (AMB) | payer OTHER, SELFPAY ==
--- NOTE | 2024-08-12 16:04 | A.OFFVIS_ITS ---
Intake Visit Reasons: 2-3m/PVR Intake Note: Patient presents today for urinary urgency and frequency Urology Medications: tadalafil Blood Thinner: none PVR: 36ml's Marking Devices Assembler Required: No Accompanied by: Self / Same As Patient Allergies No Known Allergies [No Known Allergies*] Allergy (Verified 08/12/24 16:18) HPI Comments Details: Corina is a very pleasant 49-year-old female patient of Dr. Corley. She has a past medical history of depression, anal fissure, hemorrhoids, polyuria, dizziness, obstructive sleep apnea, asthma, chronic low-back pain, iron deficiency, and arthritis. She presents to the office today for follow-up of her bladder instability and renal cysts. Of note, patient was seen approximately [address] Morales at which time she was given low-dose 5 mg of Cialis to assist with potential bladder stability. In discussion with the patient today she reports noting no improvement in lower urinary tract symptoms with daily dosing of tadalafil. She continues to report episodes of urinary frequency and urgency. She denies incontinence, hematuria, dysuria, foul- smelling urine, changes to urinary stream, flank pain, fever, and or chills. She reports be following up with obstetrics/gynecology nurse for ongoing uterine fibroids. In office urinalysis results reviewed with the patient today. PVR 36mL. Patient with previous renal imaging noting bilateral renal cyst. She reports PCP ordered 24 hour urine collection that she plans to complete this this weekend. We discussed potential causes for lower urinary tract symptoms patient is experiencing as well as further treatment options and risks and benefits of these treatment options. We discussed bladder triggers/irritants. All questions were answered. She otherwise offers no other issues or concerns at this time. Plan I advised the patient to proceed with the 24-hour urine collection as scheduled to investigate urinary output and volume over a day. Additionally, I encouraged the maintenance of a 'bladder diary' to monitor and assess fluid intake and urination frequency more objectively. We will reassess the condition after analyzing the urine test and diary data. Patient was informed and verbally consented to the use of an ambient scribe for clinic note documentation during this visit. Discussion Notes I informed her about the benefit of the 24-hour urine collection in assessing her urine production and the importance of documenting her fluid intake and output through a bladder diary. The plan included revisiting her condition after obtaining and reviewing these additional data points. The patient expressed understanding and willingness to complete the tests and diary, acknowledging the significance of a thorough and accurate analysis for proper diagnosis and treatment planning. [facility] Medical History delivery delivered Depression Anal fissure Hemorrhoids Chronic RLQ pain Polyuria Dizziness FILIBERTO (obstructive sleep apnea) Moderate persistent asthma in adult without complication Chronic low back pain Iron deficiency Arthritis History of asthma Surgical History Hx of colonoscopy History of esophagogastroduodenoscopy (EGD) S/P laparoscopic sleeve gastrectomy H/O abdominoplasty Family History Mother History of hypertension Arthritis Glaucoma Father Heart problem History of hypertension Brother Heart problem History of hypertension Sister History of hypertension Brother No problems noted. Brother No problems noted. Brother No problems noted. Brother No problems noted. Sister Ovarian cancer Sister No problems noted. Sister No problems noted. 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 Female Reproductive History Menstrual Age of Menarche: 14 Review of Systems Const All systems reviewed & are unremarkable except as noted in HPI and below Physical Exam Const General: cooperative, healthy appearing, comfortable, no acute distress, well developed, alert and awake Orientation/consciousness: patient oriented x3 Limitations: no limitations HEENT Head: Yes normal to inspection, Yes normocephalic and Yes atraumatic Ears: hearing grossly normal bilaterally Eyes General: appearance normal, both eyes and all related structures Neck Neck: Yes normal visual inspection and Yes trachea midline Chest Chest palpation & inspection: normal inspection of the chest Resp Effort & Inspection: normal respiratory effort and able to speak in complete sentences Cardio Rate: regular rate GI Inspection: Yes normal to inspection General: Yes no CVA tenderness Back/Spine/Pelvis Back: no CVA tenderness Skin General skin exam: no rashes or lesions noted Neuro General: patient oriented x3 Extrem General: Yes normal to inspection Psych Appearance: grossly normal and well kempt Mental Status: mental status grossly normal Speech and movement: Normal speech and movement present and Clear speech present Affect: normal affect Attitude: cooperative Thought process: Normal thought process present Thought content: Normal thought content present Insight: Fair insight present (Psych) Judgement: Fair judgement present (Psych) Office Procedures Post Void Residual Post Residual Void Post Void Residual (PVR): 36 75200-Nghf Void Residual by ultrasound Results AMB Urinalysis, Automated UA Leukoctes 0 Kaylene/uL Last Edit by [employer] on 08/12/24 16:20 UA Nitrite Last Edit by [employer] on 08/12/24 16:20 UA Urobilinogen 0.2 mg/dL Last Edit by [employer] on 08/12/24 16:20 UA Protein 0 mg/dL Last Edit by [employer] on 08/12/24 16:20 UA pH 6.0 Last Edit by [employer] on 08/12/24 16:20 UA Blood 0 Eren/uL Last Edit by [employer] on 08/12/24 16:20 UA Specific Ackley 1.010 Last Edit by [employer] on 08/12/24 16:20 UA Ketone Last Edit by [employer] on 08/12/24 16:20 UA Bilirubin 0 mg/dL Last Edit by [employer] on 08/12/24 16:20 UA Glucose 0 mg/dL Last Edit by [employer] on 08/12/24 16:20 Results Reviewed Results Reviewed: Laboratory Last Values Urine pH (Auto) 6.0 08/12/24 16:19 Specific Ackley (Auto) 1.010 08/12/24 16:19 Urine Protein (Auto) 0 mg/dL 08/12/24 16:19 Glucose (UA)(Auto) 0 mg/dL 08/12/24 16:19 Urine Blood (Auto) 0 Eren/uL 08/12/24 16:19 Urine Bilirubin (Auto) 0 mg/dL 08/12/24 16:19 Urine Urobilinogen (Auto) 0.2 mg/dL 08/12/24 16:19 Leukocyte Esterase (Auto) 0 Kaylene/uL 08/12/24 16:19 Assessment & Plan Assessment & Plan (1) Urinary frequency: Code(s): R35.0 - Frequency of micturition Category: Medical (2) Renal cyst: Code(s): N28.1 - Cyst of kidney, acquired Category: Medical Plan In office urinalysis results reviewed with the patient today; as noted above. PVR 0 mL. We discussed bladder triggers/irritants. Patient with scheduled 24 hour urine collection with PCP. We discussed obtaining bladder diary for further assessment evaluation. Stop Cialis. We discussed potential causes of lower urinary tract symptoms patient is experiencing as well as further treatment options and risks and benefits of these treatment options. We discussed potential near future in office cystoscopy and or urodynamics for further assessment evaluation. Will obtain retroperitoneal ultrasound/BUN/creatinine for further assessment evaluation. Follow-up in 1-3 months with imaging and labs to be completed prior; or sooner with any issues, concerns, and or questions. Orders: Orders AMB Urinalysis Automated Today Z13.9 - Encounter for screening, unspecified Blood Urea Nitrogen Today N28.1 - Cyst of kidney, acquired, R35.0 - Frequency of micturition AMB Post Void Residual by ultrasound Today R39.15 - Urgency of urination US retroperitoneal comp Today N28.1 - Cyst of kidney, acquired, R35.0 - Frequency of micturition Creatinine Today N28.1 - Cyst of kidney, acquired, R35.0 - Frequency of micturition Patient Instructions: The patient had an opportunity to ask questions regarding the treatment plan. All questions were answered. Physical exam, labs, and imaging were discussed and reviewed in detail. As well as risks, benefits, and discussion of treatment choices. No major barriers to understanding were identified. The patient expressed understanding and agreement with the above treatment plan. The patient was made aware they should contact our office by phone for worsening of their current condition, the appearance of new symptoms, or with any questions or concerns. Compliance is encouraged with any medications and follow up testing that is ordered. It is a privilege to be allowed the opportunity to participate in? your urological care.? Again, if you have any questions or concerns If you have any questions or concerns please do not hesitate to contact me. The office is [phone]. This note is constructed using voice recognition software. While every effort has been made to ensure accuracy preschool teacher aide errors may have been included. Yours sincerely, JORGE Matthews Coding Level of Care Code Est Pt Level 3 (20181) Diagnoses Urinary frequency R35.0 Renal cyst N28.1 CPT Codes Post Residual Void - PVR CPT Code: 97847-Rypt Void Residual by ultrasound ([id number])
--- OUTSIDE RECORDS SUMMARY | 2024-08-12 16:05 | XMS_ITS | Encounter Summary ---
Author Organization [employer] Address [address] [place] [address] 7 [place] [address] Care Team Providers Care Manager Of School Name Role Phone Marian Crook MD Primary Care Provider + Reason for Visit * Reason Onset Date Comments Med Refill 03/25/2024 Encounter Details Date Type Department Care Team ([facility] st Contact Info) Description 03/25/2024 Refill [facility] MEDICINE [address] [place] [address] Claritza Leonard DO [address] [place] [address] Social History Tobacco Use Types Packs/Day Years [...] 3:30 PM EDT Office Visit [facility] MEDICINE [address] [place] [address] Marian Crook MD [address] [place] [address] documented as of this encounter Visit Diagnoses Not on filedocumented in this encounter Additional Health Concerns Assessment Noted Time PHQ-9 Depression Total Score: 22 024 2:02 PM EDT documented as of this encounter Care Teams Manager Of School Relationship Specialty Start Date End Date Marian Crook MD [address] [place] [address] [id number] PCP - General Internal Medicine 09/12/23 documented as of this encounter
== END 2024-08-12 16:45 | disposition home or self-care (01) ==
PROVIDERS: PCP Internal Medicine; Visit Provider Nurse Practitioner Family
DX: R35.0 Frequency of micturition (principal); N28.1 Cyst of kidney, acquired; Z13.9 Encounter for screening, unspecified
CPT/HCPCS: 99213

== ENCOUNTER → 2024-08-12 16:02 | Outpatient (BNVA) | payer MEDICAID, SELFPAY | PROVIDERS: PCP Internal Medicine; Visit Provider Nurse Practitioner Family | DX: R35.0 Frequency of micturition (principal); N28.1 Cyst of kidney, acquired | CPT/HCPCS: 51798; 81003; 99212 ==

== ENCOUNTER 2024-08-19 08:26 | Outpatient (REF) | payer OTHER, SELFPAY ==
--- OUTSIDE RECORDS SUMMARY | 2024-08-19 08:37 | XMS_ITS | Encounter Summary ---
Author Organization [employer] Address [address] [place] [address] 7 [place] [address] Care Team Providers Care Demographer Name Role Phone Marian Crook MD Primary Care Provider + Reason for Visit * Reason Onset Date Comments Med Refill 03/25/2024 Encounter Details Date Type Department Care Team ([facility] st Contact Info) Description 03/25/2024 Refill [facility] MEDICINE [address] [place] [address] Claritza Leonard DO [address] [place] [address] Social History Tobacco Use Types Packs/Day Years [...] Description 10/12/2024 3:30 PM EDT Office Visit [facility] MEDICINE [address] [place] [address] Marian Crook MD [address] [place] [address] documented as of this encounter Visit Diagnoses Not on filedocumented in this encounter Additional Health Concerns Assessment Noted Time PHQ-9 Depression Total Score: 22 024 2:02 PM EDT documented as of this encounter Care Teams Demographer Relationship Specialty Start Date End Date Marian Crook MD [address] [place] [address] [id number] PCP - General Internal Medicine 09/12/23 documented as of this encounter
[2024-08-19 12:06] LABS: Blood Urea Nitrogen 13 mg/dL (9-16); Estimated Glomerular Filt Rate > 60
[2024-08-19 13:02] LABS: Creatinine, mg/dL 81.54; Potassium, 24U 28.9 mmol/L; Protein mg/dL < 7 mg/dL
[2024-08-19 13:58] LABS: Creatinine, 24Hr Urine 1.6 G/Day (1.0-2.0); Potassium, 24 Hr Urine 57.1 mmol/Day (25-125); Protein 24 Hr Urine < 138 mg/Day (<150); Sodium 24 Hr Urine 128.4 mmol/Day (40-220); Total Volume 24 Hour Urine 1975 mL
[2024-08-20 17:24] LABS: Urea, 24 Hr Urine 9 g/24 h (6-17)
== END 2024-08-19 08:27 | disposition home or self-care (01) ==
LOC: HO.HHCL 08:26
PROVIDERS: Internal Medicine; Visit Provider Nurse Practitioner Family
DX: N28.1 Cyst of kidney, acquired (principal); R35.0 Frequency of micturition; R35.89 Other polyuria; R42 Dizziness and giddiness
CPT/HCPCS: 36415; 82436; 82565; 83935; 84133; 84156; 84300; 84520; 84540

== ENCOUNTER 2024-09-07 14:50 | Outpatient (REF) | payer OTHER, SELFPAY ==
[2024-09-07 16:04] LABS: Blood Urea Nitrogen 15 mg/dL (9-16); Estimated Glomerular Filt Rate > 60
--- OUTSIDE RECORDS SUMMARY | 2024-09-07 17:12 | XMS_ITS | Encounter Summary ---
Author Organization [employer] Address [address] [place] [address] 7 [place] [address] Care Team Providers Care Produce Team Lead Name Role Phone Marian Crook MD Primary Care Provider + Reason for Visit * Reason Onset Date Comments Med Refill 03/25/2024 Encounter Details Date Type Department Care Team ([facility] st Contact Info) Description 03/25/2024 Refill [facility] MEDICINE [address] [place] [address] Claritza Leonard DO [address] [place] [address] Social History Tobacco Use Types Packs/Day Years [...] Description 10/12/2024 3:30 PM EDT Office Visit [facility] MEDICINE [address] [place] [address] Marian Crook MD [address] [place] [address] documented as of this encounter Visit Diagnoses Not on filedocumented in this encounter Additional Health Concerns Assessment Noted Time PHQ-9 Depression Total Score: 22 024 2:02 PM EDT documented as of this encounter Care Teams Produce Team Lead Relationship Specialty Start Date End Date Marian Crook MD [address] [place] [address] [phone] PCP - General Internal Medicine 09/12/23 documented as of this encounter
== END 2024-09-07 14:51 | disposition home or self-care (01) ==
LOC: HO.LAB 14:50
PROVIDERS: PCP Internal Medicine; Visit Provider Radiology Vascular & Interventional Radiology
DX: D25.9 Leiomyoma of uterus, unspecified (principal); Z98.890 Other specified postprocedural states
CPT/HCPCS: 36415; 82565; 84520

== ENCOUNTER 2024-09-29 09:39 | Outpatient (AMB) | payer OTHER, SELFPAY ==
--- NOTE | 2024-09-29 09:41 | MHC.OFFVIS ---
Vital Signs 09/29/24 09:42 Height 5 ft 3 in Weight 170 lb BMI 30.1 Intake Visit Reasons: OV- L knee MRI review Intake Note: Corina is a 49 year old female who presents today for a MRI review of the left knee. She describes her knee pain as sharp in nature. Most of the pain is along the medial aspect of her knee. She did undergo left knee arthroscopic surgery several years ago. She got temporary relief from that procedure. She has tried physical therapy exercises which aggravated her pain. She has also had cortisone injections which gave her temporary relief. She has tried Tylenol and anti-inflammatory medicines which gave her minimal relief. Furnace Repairer Helper Required: Yes Furnace Repairer Helper Language: Button Tacker Name: Patient seen w/o pneumatic riveter Allergies No Known Allergies (No Known Allergies*) Allergy (Verified 09/29/24 09:43) Medication List - Last Reconciled 09/29/24 by Merrick Toribio MD albuterol sulfate 1 vial inhalation Q4H PRN cholecalciferol (vitamin D3) (Vitamin D3) 50 mcg PO DAILY lidocaine 5% 1 patch topical DAILY omeprazole 20 mg PO DAILY tadalafil 5 mg PO DAILY 90 days [facility] Medical History delivery delivered Depression Anal fissure Hemorrhoids Chronic RLQ pain Polyuria Dizziness FILIBERTO (obstructive sleep apnea) Moderate persistent asthma in adult without complication Chronic low back pain Iron deficiency Arthritis History of asthma Surgical History Hx of colonoscopy History of esophagogastroduodenoscopy (EGD) S/P laparoscopic sleeve gastrectomy H/O abdominoplasty Family History Mother History of hypertension Arthritis Glaucoma Father Heart problem History of hypertension Brother Heart problem History of hypertension Sister History of hypertension Brother No problems noted. Brother No problems noted. Brother No problems noted. Brother No problems noted. Sister Ovarian cancer Sister No problems noted. Sister No problems noted. 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 Female Reproductive History Menstrual Age of Menarche: 14 Physical Exam Vital Signs: BMI result Body Mass Index 30.1 Const Other: Well-nourished well-developed very friendly female awake alert and oriented x3 in no acute distress Extrem Other: Bilateral lower extremity examination shows good capillary refill, no skin lesions noted, normal sensation light touch Left knee examination shows a minimal effusion, mild crepitus with range of motion, tenderness along her medial joint line, positive Madison's test, no instability Results Reviewed Results Reviewed: MRI of the patient's left knee shows mild diffuse degenerative changes as well as a tear of the medial meniscus Assessment & Plan Assessment & Plan (1) Tear of medial meniscus of left knee: Code(s): S83.242A - Other tear of medial meniscus, current injury, left knee, initial encounter Category: Medical Plan Ms. Jose Alberto James presents with left knee pain and mechanical symptoms due to a medial meniscus tear. I had a lengthy discussion with the patient regarding the treatment options. She is considering undergoing left knee arthroscopic surgery later this year. She will contact my office to pick a surgery date if she chooses to do so. Otherwise she will continue with her activity modifications. Feel free to call me at any time should questions regarding her orthopedic management arise. Well-nourished well-developed very friendly female awake alert and oriented x3 in no acute distress Coding Level of Care Code Est Pt Level 3 (20541) Complex EM visit Add On G2211 Diagnoses Tear of medial meniscus of left knee S83.242A
[2024-09-29 09:42] VITALS: BMI 30.1
--- OUTSIDE RECORDS SUMMARY | 2024-09-29 10:12 | XMS_ITS | Encounter Summary ---
Author Organization [employer] Address [address] [place] [address] 7 [place] [address] Care Team Providers Care Luggage Repairer Name Role Phone Marian Crook MD Primary Care Provider + Reason for Visit * Reason Onset Date Comments Med Refill 03/25/2024 Encounter Details Date Type Department Care Team ([facility] st Contact Info) Description 03/25/2024 Refill [facility] MEDICINE [address] [place] [address] Claritza Leonard DO [address] [place] [address] Social History Tobacco Use Types Packs/Day Years [...] Office Visit [facility] MEDICINE [address] [place] [address] Marian Crook MD [address] [place] [address] documented as of this encounter Visit Diagnoses Not on filedocumented in this encounter Additional Health Concerns Assessment Noted Time PHQ-9 Depression Total Score: 22 024 2:02 PM EDT documented as of this encounter Care Teams Luggage Repairer Relationship Specialty Start Date End Date Marian Crook MD [address] [place] [address] [phone] PCP - General Internal Medicine 09/12/23 documented as of this encounter
== END 2024-09-29 09:52 | disposition home or self-care (01) ==
LOC: HO.HOS 09:40
PROVIDERS: PCP Internal Medicine; Visit Provider Orthopaedic Surgery
DX: S83.242A Other tear of medial meniscus, current injury, left knee, initial encounter (principal)
CPT/HCPCS: 99213; G2211

== ENCOUNTER → 2024-09-29 09:39 | Outpatient (BNVA) | payer OTHER, SELFPAY | PROVIDERS: PCP Internal Medicine; Visit Provider Orthopaedic Surgery | DX: Z71.2 Person consulting for explanation of examination or test findings (principal); M25.562 Pain in left knee; S83.242A Other tear of medial meniscus, current injury, left knee, initial encounter | CPT/HCPCS: 99212 ==

== ENCOUNTER 2024-10-21 14:33 | Outpatient (AMB) | payer OTHER, SELFPAY ==
--- NOTE | 2024-10-21 14:34 | A.OFFVIS_ITS ---
Intake Visit Reasons: INJ B/L knee pain Intake Note: Croina is a 49 year old female who presents with complaints of bilateral knee pains. She describes her pains as sharp in nature. She has tried Tylenol and anti-inflammatory medicines which gave her minimal relief. She has also done physical therapy exercises which aggravated her pain. She wishes to hold off on surgery if at all possible. Allergies No Known Allergies (No Known Allergies*) Allergy (Verified 10/21/24 14:38) Medication List - Last Reconciled 10/21/24 by Samina Garnett, MOIRA albuterol sulfate 1 vial inhalation Q4H PRN cholecalciferol (vitamin D3) (Vitamin D3) 50 mcg PO DAILY lidocaine 5% 1 patch topical DAILY midodrine 2.5 mg PO TID omeprazole 20 mg PO DAILY tadalafil 5 mg PO DAILY 90 days [facility] Medical History delivery delivered Depression Anal fissure Hemorrhoids Chronic RLQ pain Polyuria Dizziness FILIBERTO (obstructive sleep apnea) Moderate persistent asthma in adult without complication Chronic low back pain Iron deficiency Arthritis History of asthma Surgical History Hx of colonoscopy History of esophagogastroduodenoscopy (EGD) S/P laparoscopic sleeve gastrectomy H/O abdominoplasty Family History Mother History of hypertension Arthritis Glaucoma Father Heart problem History of hypertension Brother Heart problem History of hypertension Sister History of hypertension Brother No problems noted. Brother No problems noted. Brother No problems noted. Brother No problems noted. Sister Ovarian cancer Sister No problems noted. Sister No problems noted. 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 Female Reproductive History Menstrual Age of Menarche: 14 Physical Exam Const Other: Well-nourished well-developed very friendly female awake alert and oriented x3 in no acute distress Extrem Other: Bilateral knee examination shows minimal effusions, palpable crepitus with range of motion, pain with range of motion, no instability Office Procedures AMB Joint Injection/Aspiration Joint Injection/Aspiration Primary Site: left knee Prep: site was prepped using aseptic technique Injected: 40 mg of, DepoMedrol and 1% plain lidocaine Procedure: The patient tolerated the procedure well Coding - Large joint Procedure code (CPT) selection complete AMB Joint Injection/Aspiration Joint Injection/Aspiration Primary Site: right knee Prep: site was prepped using aseptic technique Injected: 40 mg of, DepoMedrol and 1% plain lidocaine Procedure: The patient tolerated the procedure well Coding - Large joint Procedure code (CPT) selection complete Assessment & Plan Assessment & Plan (1) Arthritis of left knee: Code(s): M17.12 - Unilateral primary osteoarthritis, left knee Category: Medical (2) Arthritis of right knee: Code(s): M17.11 - Unilateral primary osteoarthritis, right knee Category: Medical Plan Ms. Jose Alberto James presents with bilateral knee pains due to degenerative joint disease. The risks and benefits of bilateral knee cortisone injections were discussed at length with the patient. The patient wished to proceed. She tolerated the injections well. She will continue with her home exercise program. She will contact me prior to her follow-up appointment in 3 months jose randall any questions or concerns arise. Feel free to call me at any time should questions regarding her orthopedic management arise. I spent 22 minutes in reviewing the patient's records and imaging studies, seeing the patient and documenting in the medical record. Orders: Orders AMB Joint Injection/Aspiration 10/21/24 M17.12 - Unilateral primary osteoarthritis, left knee AMB Joint Injection/Aspiration 10/21/24 M17.11 - Unilateral primary osteoarthritis, right knee Coding Level of Care Code Est Pt Level 3 (30679) Complex EM visit Add On G2211 Diagnoses Arthritis of left knee M17.12 Arthritis of right knee M17.11 CPT Codes Coding - 03889 Large joint: 86608 - Large joint ([id number]) Coding - 21722 Large joint: 49270 - Large joint ([id number])
--- OUTSIDE RECORDS SUMMARY | 2024-10-21 14:40 | XMS_ITS | Encounter Summary ---
Author Organization [employer] Address [address] [place] [address] 7 [place] [address] Care Team Providers Care Bowling Or Skating Front Desk Clerk Name Role Phone Marian Crook MD Primary Care Provider + Reason for Visit * Reason Onset Date Comments Med Refill 03/25/2024 Encounter Details Date Type Department Care Team ([facility] st Contact Info) Description 03/25/2024 Refill [facility] MEDICINE [address] [place] [address] Claritza Leonard DO [address] [place] [address] Social History Tobacco Use Types Packs/Day Years [...] Care Team (Late st Contact Info) Description 10/26/2024 2:30 PM EDT Clinical Support [facility] MEDICINE [address] [place] [address] documented as of this encounter Visit Diagnoses Not on filedocumented in this encounter Additional Health Concerns Assessment Noted Time PHQ-9 Depression Total Score: 22 024 2:02 PM EDT documented as of this encounter Care Teams Bowling Or Skating Front Desk Clerk Relationship Specialty Start Date End Date Marian Crook MD [address] [place] [address] PCP - General Internal Medicine 09/12/23 documented as of this encounter
--- OUTSIDE RECORDS SUMMARY | 2024-10-21 14:40 | XMS_ITS | Clinical Summary ---
Author Organization [facility] [employer] [facility] Address [address] [place] [address] Phone Care Team Providers Care Staff Electrical Engineer Name Role Phone Marian Crook MD Primary Care Provider + [phone] Encounters Date Type Department Care Team Description 09/28/2024 12:58 PM EDT - 09/28/2024 11:59 PM EDT Hospital Encounter [facility] Xray [address] [place] [phone] Dizziness and giddiness Discharge Disposition: Home or Self Care 09/12/2024 8:01 AM EDT - 09/12/2024 11:59 PM EDT Hospital Encounter [facility] MRI [address] [place] [phone] Leiomyoma of uterus, unspecified Discharge Disposition: Home or Self Care from Last 3 Months Social History Tobacco Use Types Packs/Day Years Used Date Smoking Tobacco: Never Assessed Comments Unknown Sex and Gender Information Value Date Recorded Sex Assigned at Female 09/27/2024 3:53 PM EDT Legal Sex Female 2:27 AM EST Gender Identity Female 09/27/2024 3:53 PM EDT Sexual Orientation Not on file Plan of Treatment Health Maintenance Due Date Last Done Comments Breast Cancer Screening 1975 Hepatitis B Vaccines (2 of 3 - 19+ 3-dose series) 11/08/2013 10/11/2013, 12/02/2008, 10/11/2008 COVID-19 Vaccine ( season) 2023 04/25/2021, 05/14/2020, 04/23/2020 Depression Screening 03/24/2024 Hepatitis C Screening 07/08/2024 Social Influencers of Health Screening 07/08/2024 Influenza Vaccine (#1) 2024 , 12/20/2018, 05/15/2017, Additional history exists Colorectal Cancer Screening: FIT-DNA (Cologuard) 02/01/2027 02/02/2024 Cervical Cancer Screening: Pap Smear 05/05/2027 05/05/2024 DTaP,Tdap,and Td Vaccines (5 - Td or Tdap) 01/11/2034 01/12/2024, 12/03/2012, 10/11/2008, Additional history exists Varicella Vaccines Aged Out 12/02/2008 No longer eligible based on patient's age to complete this topic Pneumococcal Vaccine: Pediatrics (0 to 5 Years) and At-Risk Patients (6 to 49 Years) Completed 01/12/2024, 10/11/2013 HIV Screening Completed 03/27/2024 HIB Vaccines Aged Out [...] to complete this topic RSV Immunization Patients Under 20 months Aged Out No longer eligible based on patient's age to complete this topic Procedures Procedure Name Priority Date/Time Associated Diagnosis Comments TILT TABLE Routine 09/28/2024 1:14 PM EDT Dizziness and giddiness MR PELVIS WO AND W CONTRAST Routine 09/12/2024 9:29 AM EDT Leiomyoma of uterus, unspecified from Last 3 Months Results * Tilt table (09/28/2024 1:14 PM EDT) Anatomical Region Laterality Modality Radiographic Irais ging Narrative 09/28/2024 1:57 PM EDT Symptoms today are identical to at home symptoms. Pt feels she drinks a lot of fluid already and has a high salt diet. She does urinate very frequently. Her orthostatic hypotension may need to be treated with either Mididrine or Fludrocortisone. Tilt Table The patient was brought to lab in fasting state. Patient lied supine for 5 minutes for equilibrium. Baseline ECG showed normal sinus rhythm. Baseline supine minimum HR: 70 bpm Patient tilted to 70 degrees. Tilt maintained for 20 minutes. Minimum BP during tilt: 95/56 mmHg Maximum BP during tilt: 116/58 mmHg Minimum heart rate during tilt: 80 bpm Maximum heart rate during tilt: 92 bpm Rhythm during tilt: normal sinus rhythm There was a clear orthostatic response not noted. Patient experienced a physiologic HR increase with tilt. Nitroglycerin was given during the test. Tilt maintained under nitroglycerin for 3 minutes. Minimum BP under nitroglycerin: 76/42 Maximum BP under nitroglycerin: 148/72 Minimum HR under nitroglycerin: 90 Maximum HR under nitroglycerin: 139 Rhythm after nitroglycerin administration was sinus tachycardia. There was a clear orthostatic response noted. Patient experienced an exaggerated HR increase with nitroglycerin. Symptoms seen after the nitroglycerin dose include: dizziness. Premonitory symptoms were reproduced. Syncope/presyncope symptoms were reproduced. They lasted for 3 minutes. A transient increase in HR was seen. A reproduction of the clinical symptoms was seen during this period. Conclusion: Abnormal tilt test with findings consistant with orthostatic hypotension. Marian Crook MD [facility] [employer] PROCEDUR ES Final Result * MR Pelvis wo and w Contrast (09/12/2024 9:29 AM EDT) Anatomical Region Laterality Modality Pelvis, Body Magnetic Resonan ce 09/14/2024 1:23 PM EDT Impressions 09/14/2024 1:51 PM EDT Fibroid uterus with dominant subserosal right fundal fibroid measuring 6 cm. -------- FINAL REPORT -------- Dictated By: COURTNEY PABLO Dictated Date: 09/14/2024 13:23 ET Assigned Physician: COURTNEY PABLO Reviewed and Electronically Signed By: COURTNEY PABLO Signed Date: 09/14/2024 13:51 ET Workstation ID: [id number] Transcribed By: Self Edit Transcribed Date: 09/14/2024 13:23 ET Narrative 09/14/2024 1:51 PM EDT PROCEDURE: Pelvic MRI INDICATION: Uterine fibroids TECHNIQUE: Multiplanar, multisequence MRI of the pelvis without and with contrast. 20 mL Dotarem injected intravenously without complication COMPARISON: No priors available. FINDINGS: Anteverted uterus measures 11.4 cm in length. Dominant subserosal fibroid along the right posterior lateral aspect of the uterine fundus measures 6 x 5 cm. No submucosal or intracavitary fibroids. Several additional subcentimeter intramural and subserosal fibroids are noted measuring up to 8 mm along the ventral surface of the uterine fundus near midline. The endometrium is normal and measures 9 mm. No endometrial mass. The junctional zone is normal. No cervical or vaginal mass. Nabothian cysts noted along the left aspect of the cervix. The ovaries are normal bilaterally with several small follicles throughout the ovaries. No adnexal mass or pelvic free fluid. Visualized portions of the bowel are within normal limits. Bladder is decompressed. No lymphadenopathy. Superficial soft tissues and pelvic muscles are normal. No suspicious bone lesions. Procedure Note Courtney Pablo MD - 09/14/2024 PROCEDURE: Pelvic MRI INDICATION: Uterine fibroids TECHNIQUE: Multiplanar, multisequence MRI of the pelvis without and withcontrast. 20 mL Dotarem injected intravenously without complication COMPARISON: No priors available. FINDINGS: Anteverted uterus measures 11.4 cm in length. Dominant subserosal fibroidalong the right posterior lateral aspect of the uterine fundus measures 6x 5 cm. No submucosal or intracavitary fibroids. Several additionalsubcentimeter intramural and subserosal fibroids are noted measuring up to8 mm along the ventral surface of the uterine fundus near midline. The endometrium is normal and measures 9 mm. No endometrial mass. Thejunctional zone is normal. No cervical or vaginal mass. Nabothian cysts noted along the left aspectof the cervix. The ovaries are normal bilaterally with several small follicles throughoutthe ovaries. No adnexal mass or pelvic free fluid. Visualized portions of the bowel are within normal limits. Bladder is decompressed. No lymphadenopathy. Superficial soft tissues and pelvic muscles are normal. No suspicious bone lesions. IMPRESSION: Fibroid uterus with dominant subserosal right fundal fibroid measuring 6cm. -------- FINAL REPORT -------- Dictated By: COURTNEY PABLO Dictated Date: 09/14/2024 13:23 ET Assigned Physician: COURTNEY PABLO Reviewed and Electronically Signed By: COURTNEY PABLO Signed Date: 09/14/2024 13:51 ET Workstation ID: [id number] Transcribed By: Self Edit Transcribed Date: 09/14/2024 13:23 ET Faheem Ma MD IMG MRI PROCEDURES Final Result from Last 3 Months Insurance [facility] Care Teams Staff Electrical Engineer Relationship Specialty Start Date End Date Marian Crook MD [address] [place] [address] [phone] PCP - General Internal Medicine 07/08/24
== END 2024-10-21 15:08 | disposition home or self-care (01) ==
LOC: HO.HOS 14:34
PROVIDERS: PCP Internal Medicine; Visit Provider Orthopaedic Surgery
DX: M17.0 Bilateral primary osteoarthritis of knee (principal)
CPT/HCPCS: 20610; 99213

== ENCOUNTER → 2024-10-21 14:33 | Outpatient (BNVA) | payer OTHER, SELFPAY | PROVIDERS: PCP Internal Medicine; Visit Provider Orthopaedic Surgery | DX: M17.0 Bilateral primary osteoarthritis of knee (principal) | CPT/HCPCS: 20610; 99212; J1010; J2003 ==

== ENCOUNTER 2024-11-08 15:24 | Outpatient (REF) | payer OTHER, SELFPAY ==
--- NOTE | ~2024-11-08 | US_ITS ---
EXAMINATION: US RETROPERITONEUM HISTORY: R35.0 - Frequency of micturition TECHNIQUE: Real-time grayscale ultrasound imaging of the kidneys was performed and images were reviewed. COMPARISON: Comparison is made with the prior examination dated 04/20/2024. FINDINGS: Right kidney: The right kidney measures 9.8 x 5.1 x 5.0 cm. Renal parenchymal echotexture and thickness are normal. There is a parapelvic cyst at the lower pole measuring 1.6 x 1.0 x 1.2 cm. There is no hydronephrosis or renal calculi. Left Kidney: The left kidney measures 10.9 x 5.8 x 5.4 cm. Renal parenchymal echotexture and thickness are normal. There are multiple parapelvic cysts, the largest of which is in the interpolar region measuring 3.8 x 2.2 x 2.1 cm. There is no hydronephrosis or renal calculi. The urinary bladder is unremarkable. Bilateral ureteral jets are identified. Before voiding, the urinary bladder measured 6.4 x 5.4 x 9.7 cm, for an estimated volume of 173 mL. After voiding, the urinary bladder measured 3.9 x 0.8 x 3.7 cm, for an estimated volume of 6.1 mL. US/US retroperitoneal comp IMPRESSION: 1. Multiple bilateral renal parapelvic cysts without change. 2. Post void bladder residual of 6.1 mL. Electronically signed by: Dorian Graham MD 11/09/2024 06:58 AM EDT
--- OUTSIDE RECORDS SUMMARY | 2024-11-08 15:55 | XMS_ITS | Clinical Summary ---
Author Organization [facility] Address [address] [place] [address] Phone Care Team Providers Care Senior Examiner Name Role Phone Marian Crook MD Primary Care Provider + [phone] Encounters Date Type Department Care Team Description 09/28/2024 12:58 PM EDT - 09/28/2024 11:59 PM EDT Hospital Encounter [facility] Xray [address] [place] [phone] Dizziness and giddiness Discharge Disposition: Home or Self Care 09/12/2024 8:01 AM EDT - 09/12/2024 11:59 PM EDT Hospital Encounter [facility] MRI [address] [place] [phone] Leiomyoma of uterus, unspecified Discharge Disposition: Home [...] Signed Date: 09/14/2024 13:51 ET Workstation ID: [id number] Transcribed By: Self Edit Transcribed Date: 09/14/2024 [...] Signed Date: 09/14/2024 13:51 ET Workstation ID: [id number] Transcribed By: Self Edit Transcribed Date: 09/14/2024 13:23 ET Faheem Ma MD IMG MRI PROCEDURES Final Result from Last 3 Months Insurance [facility] Care Teams Senior Examiner Relationship Specialty Start Date End Date Marian Crook MD [address] [place] [address] [phone] PCP - General Internal Medicine 07/08/24
--- OUTSIDE RECORDS SUMMARY | 2024-11-08 15:55 | XMS_ITS | Encounter Summary ---
Author Organization [employer] Address [address] [place] [address] [address] [place] [address] Care Team Providers Care Terra Cotta Roofer Name Role Phone Marian Crook MD Primary Care Provider + Marian Crook MD Primary Care Provider + Reason for Visit * Reason Onset Date Comments Med Refill 03/25/2024 Encounter Details Date Type Department Care Team (Late st Contact Info) Description 03/25/2024 Refill [facility] MEDICINE [address] [place] [address] Claritza Leonard DO [address] [place], [place] [phone] Social History Tobacco Use Types Packs/Day Years [...] Care Team (Late st Contact Info) Description 11/19/2024 3:30 PM EDT Office Visit [facility] CHC MED & PEDS [address] [place] [address] Annette [place], TALI [address] [place] [address] 01/03/2025 9:00 AM EDT Office Visit [facility] OPTOMETRY [address] [place] [address] Ramon, Annette, OD [address] [place] [address] 01/07/2025 9:00 AM EDT Office Visit [facility] MEDICINE [address] [place] [address] Marian Crook MD [address] [place] [address] documented as of this encounter Visit Diagnoses Not on filedocumented in this encounter Additional Health Concerns Assessment Noted Time PHQ-9 Depression Total Score: 22 024 2:02 PM EDT documented as of this encounter Care Teams Terra Cotta Roofer Relationship Specialty Start Date End Date Marian Crook MD [address] [place] [address] PCP - General Internal Medicine 09/12/23 10/24/24 Marian Crook MD [address] [place] [address] PCP - General Internal Medicine 10/25/24 documented as of this encounter
== END 2024-11-08 15:25 | disposition home or self-care (01) ==
LOC: HO.US 15:24
PROVIDERS: PCP Internal Medicine; Visit Provider Nurse Practitioner Family
DX: R35.0 Frequency of micturition (principal); N28.1 Cyst of kidney, acquired
CPT/HCPCS: 76770

== ENCOUNTER → 2024-11-08 15:26 | Outpatient (BNV) | payer OTHER, SELFPAY | PROVIDERS: PCP Internal Medicine; Visit Provider Radiology Diagnostic Radiology | DX: N28.1 Cyst of kidney, acquired (principal) | CPT/HCPCS: 76770 ==

== ENCOUNTER 2024-11-16 15:58 | Outpatient (AMB) | payer OTHER, SELFPAY ==
--- NOTE | 2024-11-16 16:05 | A.OFFVIS_ITS ---
Intake Visit Reasons: 3m/US/ BUN/CREAT Intake Note: Patient is present for 3M/US/BUN/CREAT Urology Medication:TADALAFIL Antibiotic Allergy:NONE Blood Thinner:NONE Crew Person Required: No Allergies No Known Allergies (No Known Allergies*) Allergy (Verified 11/16/24 21:37) Medication List - Last Reconciled 11/16/24 by JORGE Matthews albuterol sulfate 1 vial inhalation Q4H PRN cholecalciferol (vitamin D3) (Vitamin D3) 50 mcg PO DAILY lidocaine 5% 1 patch topical DAILY midodrine 2.5 mg PO TID omeprazole 20 mg PO DAILY HPI Comments Details: Corina is a very pleasant 49-year-old female patient of Dr. Corley. She has a past medical history of depression, anal fissure, hemorrhoids, polyuria, dizziness, obstructive sleep apnea, asthma, chronic low-back pain, iron deficiency, and arthritis. She presents to the office today for follow-up of her ongoing lower urinary tract symptoms and renal cysts. In discussion with the patient today she continues to report episodes of urinary urgency and frequ ency as well as stress incontinence. She discusses her reluctancy and taking medications. Recent retroperitoneal ultrasound results were reviewed 10/15 bilateral kidneys with normal echotexture and thickness. There are multiple peripelvic cysts bilaterally. No hydronephrosis or renal calculi noted bilaterally. The urinary bladder is unremarkable. Postvoid bladder volume was approximately 5 mL. Patient had previously trialed low-dose Cialis for potential bladder stability with Dr. Morales however did not find this helpful. We did discuss further treatment options to include pelvic floor therapy, medications, in office cystoscopy, and or in office urodynamics for further assessment evaluation. Risks and benefits of these interventions were discussed. All questions were answered. In office urinalysis results reviewed with the patient today. She denies hematuria, dysuria, foul-smelling urine, changes to urinary stream, flank pain, fever, and or chills. She reports be following up with washtub worker helper for ongoing uterine fibroids. She reports PCP ordered 24 hour urine collection that she plans to complete soon. We discussed bladder triggers/irritants. All questions were answered. She otherwise offers no other issues or concerns at this time. [facility] Medical History delivery delivered Depression Anal fissure Hemorrhoids Chronic RLQ pain Polyuria Dizziness FILIBERTO (obstructive sleep apnea) Moderate persistent asthma in adult without complication Chronic low back pain Iron deficiency Arthritis History of asthma Surgical History Hx of colonoscopy History of esophagogastroduodenoscopy (EGD) S/P laparoscopic sleeve gastrectomy H/O abdominoplasty Family History Mother History of hypertension Arthritis Glaucoma Father Heart problem History of hypertension Brother Heart problem History of hypertension Sister History of hypertension Brother No problems noted. Brother No problems noted. Brother No problems noted. Brother No problems noted. Sister Ovarian cancer Sister No problems noted. Sister No problems noted. 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 Female Reproductive History Menstrual Age of Menarche: 14 Review of Systems Const All systems reviewed & are unremarkable except as noted in HPI and below Physical Exam Const General: cooperative, healthy appearing, comfortable, no acute distress, well developed, alert and awake Orientation/consciousness: patient oriented x3 Limitations: no limitations HEENT Head: Yes normal to inspection, Yes normocephalic and Yes atraumatic Ears: hearing grossly normal bilaterally Eyes General: appearance normal, both eyes and all related structures Neck Neck: Yes normal visual inspection and Yes trachea midline Chest Chest palpation & inspection: normal inspection of the chest Resp Effort & Inspection: normal respiratory effort and able to speak in complete sentences Cardio Rate: regular rate GI Inspection: Yes normal to inspection General: Yes no CVA tenderness Back/Spine/Pelvis Back: no CVA tenderness Skin General skin exam: no rashes or lesions noted Neuro General: patient oriented x3 Extrem General: Yes normal to inspection Psych Appearance: grossly normal and well kempt Mental Status: mental status grossly normal Speech and movement: Normal speech and movement present and Clear speech present Affect: normal affect Attitude: cooperative Thought process: Normal thought process present Thought content: Normal thought content present Insight: Fair insight present (Psych) Judgement: Fair judgement present (Psych) Results AMB Urinalysis, Automated UA Leukoctes 0 Kaylene/uL Last Edit by ASHLEIGH Thompson on 11/16/24 16:22 UA Nitrite Negative Last Edit by Donald Gomez [facility] on 11/16/24 16:22 UA Urobilinogen 0.2 mg/dL Last Edit by Donald Gomez [facility] on 11/16/24 16:2 2 UA Protein 0 mg/dL Last Edit by Donald Gomez [facility] on 11/16/24 16:22 UA pH 6.0 Last Edit by Donald Gomez [facility] on 11/16/24 16:22 UA Blood 0 Eren/uL Last Edit by Donald Gomez [facility] on 11/16/24 16:22 UA Specific [place] 1.010 Last Edit by Donald Gomez [facility] on 11/16/24 16: 22 UA Ketone Negative Last Edit by Donald Gomez [facility] on 11/16/24 16:22 UA Bilirubin 0 mg/dL Last Edit by Donald Gomez [facility] on 11/16/24 16:22 UA Glucose 0 mg/dL Last Edit by Donald Gomez [facility] on 11/16/24 16:22 Results Reviewed Results Reviewed: Laboratory Last Values Urine pH (Auto) 6.0 11/16/24 16:21 Specific [place] (Auto) 1.010 11/16/24 16:21 Urine Protein (Auto) 0 mg/dL 11/16/24 16:21 Glucose (UA)(Auto) 0 mg/dL 11/16/24 16:21 Urine Ketones (Auto) Negative 11/16/24 16:21 Urine Blood (Auto) 0 Eren/uL 11/16/24 16:21 Urine Nitrite (Auto) Negative 11/16/24 16:21 Urine Bilirubin (Auto) 0 mg/dL 11/16/24 16:21 Urine Urobilinogen (Auto) 0.2 mg/dL 11/16/24 16:21 Leukocyte Esterase (Auto) 0 Kaylene/uL 11/16/24 16:21 Date of Service: 11/08/24 Procedure(s): US retroperitoneal comp FINDINGS: Right kidney: The right kidney measures 9.8 x 5.1 x 5.0 cm. Renal parenchymal echotexture and thickness are normal. There is a parapelvic cyst at the lower pole measuring 1.6 x 1.0 x 1.2 cm. There is no hydronephrosis or renal calculi. Left Kidney: The left kidney measures 10.9 x 5.8 x 5.4 cm. Renal parenchymal echotexture and thickness are normal. There are multiple parapelvic cysts, the largest of which is in the interpolar region measuring 3.8 x 2.2 x 2.1 cm. There is no hydronephrosis or renal calculi. The urinary bladder is unremarkable. Bilateral ureteral jets are identified. Before voiding, the urinary bladder measured 6.4 x 5.4 x 9.7 cm, for an estimated volume of 173 mL. After voiding, the urinary bladder measured 3.9 x 0.8 x 3.7 cm, for an estimated volume of 6.1 mL. IMPRESSION: 1. Multiple bilateral renal parapelvic cysts without change. 2. Post void bladder residual of 6.1 mL. Assessment & Plan Assessment & Plan (1) Urinary frequency: Code(s): R35.0 - Frequency of micturition Category: Medical (2) Renal cyst: Code(s): N28.1 - Cyst of kidney, acquired Category: Medical (3) Urinary urgency: Code(s): R39.15 - Urgency of urination Category: Medical (4) Stress incontinence: Code(s): N39.3 - Stress incontinence (female) (male) Category: Medical Plan In office urinalysis results reviewed with the patient today; as noted above. We discussed bladder triggers/irritants. Patient with scheduled 24 hour urine collection with PCP. We discussed obtaining bladder diary for further assessment evaluation. We discussed potential causes of lower urinary tract symptoms patient is experiencing as well as further treatment options and risks and benefits of these treatment options. Recent retroperitoneal ultrasound results reviewed with the patient today; as noted above. Will schedule for in office urodynamics. Follow-up per doctor's orders; or sooner with any issues, concerns, and or questions. Orders: Orders AMB Urinalysis Automated Today Z13.9 - Encounter for screening, unspecified Patient Instructions: The patient had an opportunity to ask questions regarding the treatment plan. All questions were answered. Physical exam, labs, and imaging were discussed and reviewed in detail. As well as risks, benefits, and discussion of treatment choices. No major barriers to understanding were identified. The patient expressed understanding and agreement with the above treatment plan. The patient was made aware they should contact our office by phone for worsening of their current condition, the appearance of new symptoms, or with any questions or concerns. Compliance is encouraged with any medications and follow up testing that is ordered. It is a privilege to be allowed the opportunity to participate in? your urological care.? Again, if you have any questions or concerns If you have any questions or concerns please do not hesitate to contact me. The office is [phone]. This note is constructed using voice recognition software. While every effort has been made to ensure accuracy flute teacher errors may have been included. Yours sincerely, JORGE Matthews Coding Level of Care Code Est Pt Level 3 (90053) Diagnoses Urinary frequency R35.0 Renal cyst N28.1 Urinary urgency R39.15 Stress incontinence N39.3
--- OUTSIDE RECORDS SUMMARY | 2024-11-16 16:41 | XMS_ITS | Encounter Summary ---
Author Organization [employer] Address [address] [place] [address] [address] [place] [address] Care Team Providers Care Alcohol Still Operator Name Role Phone Marian Crook MD Primary Care Provider + Marian Crook MD Primary Care Provider + Reason for Visit * Reason Onset Date Comments Med Refill 03/25/2024 Encounter Details Date Type Department Care Team (Late st Contact Info) Description 03/25/2024 Refill [facility] MEDICINE [address] [place] [address] Claritza eLonard DO [address] [place], [place] [phone] Social History Tobacco Use Types Packs/Day Years [...] Description 11/19/2024 3:30 PM EDT Office Visit [facility] CHC MED & PEDS [address] [place] [address] Annette [place], TALI [address] [place] [address] 01/03/2025 9:00 AM EDT Office Visit [facility] OPTOMETRY [address] [place] [address] Ramon, Annette, OD [address] [place] [address] 01/07/2025 9:00 AM EDT Office Visit [facility] MEDICINE [address] [place] [address] Marian Crook MD [address] [place] [address] documented as of this encounter Visit Diagnoses Not on filedocumented in this encounter Additional Health Concerns Assessment Noted Time PHQ-9 Depression Total Score: 22 024 2:02 PM EDT documented as of this encounter Care Teams Alcohol Still Operator Relationship Specialty Start Date End Date Marian Crook MD [address] [place] [address] PCP - General Internal Medicine 09/12/23 10/24/24 Marian Crook MD [address] [place] [address] PCP - General Internal Medicine 10/25/24 documented as of this encounter
--- OUTSIDE RECORDS SUMMARY | 2024-11-16 16:41 | XMS_ITS | Encounter Summary ---
Author Organization [employer] Address [address] [place] [address] 7 [place] [address] Care Team Providers Care Certified Medical Aide Name Role Phone Marian Crook MD Primary Care Provider + Marian Crook MD Primary Care Provider + Reason for Visit * Reason Comments Med Change Request Encounter Details Date Type Department Care Team ([facility] st Contact Info) Description 06/17/2024 Refill [facility] MEDICINE 230 [place], [place] [phone] Marian Crook MD 230 [place], [place] [phone] Social History Tobacco Use Types Packs/Day Years [...] Description 11/19/2024 3:30 PM EDT Office Visit [facility] CHC MED & PEDS 505 [place] [address] Annette Mitchell, METAL DRILL PRESS OPERATOR 230 [place] [address] 01/03/2025 9:00 AM EDT Office Visit [facility] OPTOMETRY [address] [place] [address] Ramon, Annette, OD 230 [place] [address] 01/07/2025 9:00 AM EDT Office Visit [facility] MEDICINE 230 [place] [address] Marian Crook MD 230 [place] [address] documented as of this encounter Visit Diagnoses Not on filedocumented in this encounter Additional Health Concerns Assessment Noted Time PHQ-9 Depression Total Score: 22 024 2:02 PM EDT documented as of this encounter Care Teams Certified Medical Aide Relationship Specialty Start Date End Date Marian Crook MD 230 [place] [address] PCP - General Internal Medicine 09/12/23 10/24/24 Marian Crook MD [address] [place] [address] PCP - General Internal Medicine 10/25/24 documented as of this encounter
--- OUTSIDE RECORDS SUMMARY | 2024-11-16 16:41 | XMS_ITS | Encounter Summary ---
Author Organization [employer] Address [address] [place] [address] Care Team Providers Care Metal Or Wood Blocker Name Role Phone Marian Crook MD Primary Care Provider + Marian Crook MD Primary Care Provider + Reason for Visit * Reason Comments Med Refill Encounter Details Date Type Department Care Team (Late st Contact Info) Description 11/27/2023 Refill [facility] MEDICINE 230 [place] [address] Marian Crook MD 230 [place], [place] [phone] Social History Tobacco Use Types Packs/Day Years [...] Department Care Team (Late Contact Info) Description 11/19/2024 3:30 PM EDT Office Visit [facility] CHC MED & PEDS 505 [place] [address] Annette Mitchell CNP 230 [place] [address] 01/03/2025 9:00 AM EDT Office Visit [facility] OPTOMETRY [address] [place], [place] [phone] Annette Navarro, OD 230 [place] [address] 01/07/2025 9:00 AM EDT Office Visit [facility] MEDICINE 230 [place] [address] Marian Crook MD 230 [place] [address] documented as of this encounter Visit Diagnoses Not on filedocumented in this encounter Additional Health Concerns Assessment Noted Time PHQ-9 Depression Total Score: 16 06/18/ 023 3:25 PM EDT documented as of this encounter Care Teams Metal Or Wood Blocker Relationship Specialty Start Date End Date Marian Crook MD [address] [place] [address] [phone] PCP - General Internal Medicine 09/12/23 10/24/24 Marian Crook MD [address] [place] [address] [phone] PCP - General Internal Medicine 10/25/24 documented as of this encounter
--- OUTSIDE RECORDS SUMMARY | 2024-11-16 16:41 | XMS_ITS | Encounter Summary ---
Author Organization [employer] Address [address] [place] [address] 7 [place] [address] Care Team Providers Care Chief Commercial Officer Name Role Phone Marian Crook MD Primary Care Provider + Marian Crook MD Primary Care Provider + Reason for Visit * Reason Comments Med Refill Encounter Details Date Type Department Care Team ([facility] st Contact Info) Description 06/05/2024 Refill [facility] MEDICINE 230 [place], [place] [phone] Marian Crook MD 230 [place], [place] [phone] Social History Tobacco Use Types Packs/Day Years [...] Description 11/19/2024 3:30 PM EDT Office Visit [facility] CHC MED & PEDS 505 [place] [address] Annette Mitchell, PSYCHIATRIC SECRETARY 230 [place] [address] 01/03/2025 9:00 AM EDT Office Visit [facility] OPTOMETRY [address] [place] [address] Ramon, Annette, OD 230 [place] [address] 01/07/2025 9:00 AM EDT Office Visit [facility] MEDICINE 230 [place] [address] Marian Crook MD 230 [place] [address] documented as of this encounter Visit Diagnoses Not on filedocumented in this encounter Additional Health Concerns Assessment Noted Time PHQ-9 Depression Total Score: 22 024 2:02 PM EDT documented as of this encounter Care Teams Chief Commercial Officer Relationship Specialty Start Date End Date Marian Crook MD 230 [place] [address] PCP - General Internal Medicine 09/12/23 10/24/24 Marian Crook MD 230 [place] [address] PCP - General Internal Medicine 10/25/24 documented as of this encounter
--- OUTSIDE RECORDS SUMMARY | 2024-11-16 16:41 | XMS_ITS | Encounter Summary ---
Author Organization [employer] Address [address] [place] [address] 7 [place] [address] Care Team Providers Care Feed Mixer Helper Name Role Phone Marian Crook MD Primary Care Provider + Marian Crook MD Primary Care Provider + Reason for Visit * Reason Onset Date Comments Med Refill 06/02/2024 Encounter Details Date Type Department Care Team (Late st Contact Info) Description 06/02/2024 Telephone [facility] MEDICINE 230 [place] [address] Marian Crook MD 230 [place], [place] [phone] Med Refill Social History Tobacco Use Types [...] Description 11/19/2024 3:30 PM EDT Office Visit [facility] CHC MED & PEDS [address] [place] [address] Annette Mitchell, SNOW MAKER 230 [place] [address] 01/03/2025 9:00 AM EDT Office Visit [facility] OPTOMETRY [address] [place] [address] Ramon, Annette, OD 230 [place] [address] 01/07/2025 9:00 AM EDT Office Visit [facility] MEDICINE 230 [place] [address] Marian Crook MD 230 [place] [address] documented as of this encounter Visit Diagnoses Diagnosis Moderate persistent asthma without complication documented in this encounter Additional Health Concerns Assessment Noted Time PHQ-9 Depression Total Score: 22 024 2:02 PM EDT documented as of this encounter Care Teams Feed Mixer Helper Relationship Specialty Start Date End Date Marian Crook MD [address] [place] [address] PCP - General Internal Medicine 09/12/23 10/24/24 Marian Crook MD [address] [place] [address] PCP - General Internal Medicine 10/25/24 documented as of this encounter
--- OUTSIDE RECORDS SUMMARY | 2024-11-16 16:41 | XMS_ITS | Encounter Summary ---
Author Organization [employer] Address [address] [place] [address] 7t [place] [address] Care Team Providers Care Fitness Instructor Name Role Phone Marian Crook MD Primary Care Provider + Encounter Details Date Type Department Care Team (Latest Contact Info) Description 11/11/2024 Results Follow-Up [facility] MEDICINE 230 [place] [address] Marian Crook MD 230 [place] [address] [facility] Complete Social History Tobacco Use Types Packs/Day Years Used Date Smoking Tobacco: Never Passive Smoke Exposure: Never Smokeless Tobacco: Never Alcohol Use Standard [...] Answer Date Recorded Patient Health Questionnaire-9 Score 13 10/12/2024 Patient Health Questionnaire-9 Score 13 10/12/2024 Last PHQ-9: Questionnaire Data Not on file 0 10/12/2024 Housing Stability Answer Date Recorded What is [...] Answer Date Recorded Patient Health Questionnaire-2 Score 4 10/12/2024 Internet Access Answer Date Recorded Internet Access [...] Encounter Note - Marian Crook MD - 11/11/2024 5:09 PM EDT Renal ultrasound ordered by urology office on 11/08/2024 showed bilateral renal cysts, she has seen by urology documented in this encounter Plan of Treatment Upcoming Encounters Date Type Department Care Team (Late st Contact Info) Description 11/19/2024 3:30 PM EDT Office Visit [facility] CHC MED & PEDS 505 [place] [address] Annette Mitchell, PHOTO TUBE ASSEMBLER 230 [place] [address] 01/03/2025 9:00 AM EDT Office Visit [facility] OPTOMETRY [address] [place] [address] Annette Navarro, OD 230 [place] [address] 01/07/2025 9:00 AM EDT Office Visit [facility] MEDICINE 230 [place] [address] Marian Crook MD 230 [place] [address] documented as of this encounter Visit Diagnoses Not on filedocumented in this encounter Additional Health Concerns Assessment Noted Time PHQ-9 Depression Total Score: 13 025 9:26 AM EDT documented as of this encounter Care Teams Fitness Instructor Relationship Specialty Start Date End Date Marian Crook MD 230 [place] [address] PCP - General Internal Medicine 10/25/24 documented as of this encounter
--- OUTSIDE RECORDS SUMMARY | 2024-11-16 16:41 | XMS_ITS | Encounter Summary ---
Author Organization [employer] Address [address] [place] [address] 7 [place] [address] Care Team Providers Care Pe Manager Name Role Phone [facility] Primary Care Provider [phone] Marian Crook MD Primary Care Provider + Marian Crook MD Primary Care Provider + Encounter Details Date Type Department Care Team (Late Contact Info) Description 04/03/2023 Abstract [facility] MEDICINE 230 [place] [address] [facility] 230 [place] [address] Social History Tobacco Use Types Packs/Day Years [...] Description 11/19/2024 3:30 PM EDT Office Visit [facility] CHC MED & PEDS 505 [place] [address] Annette Mitchell CNP 230 [place], [place] [phone] 01/03/2025 9:00 AM EDT Office Visit [facility] OPTOMETRY [address] [place], [place] [phone] Annette Navarro, OD 230 [place] [address] 01/07/2025 9:00 AM EDT Office Visit [facility] MEDICINE 230 [place] [address] Marian Crook MD 230 [place] [address] documented as of this encounter Visit Diagnoses Not on filedocumented in this encounter Additional Health Concerns Assessment Noted Time PHQ-9 Depression Total Score: 16 06/18/ 023 3:25 PM EDT documented as of this encounter Care Teams Pe Manager Relationship Specialty Start Date End Date Merlin Alisha [facility] [address] [place] [id number] PCP - General Family Medicine 11/14/21 09/11/23 Marian Crook MD [address] [place] [address] [phone] PCP - General Internal Medicine 09/12/23 10/24/24 Marian Crook MD [address] [place] [address] [phone] PCP - General Internal Medicine 10/25/24 documented as of this encounter
--- OUTSIDE RECORDS SUMMARY | 2024-11-16 16:41 | XMS_ITS | Encounter Summary ---
Author Organization [employer] Address [address] [place] [address] 7 [place] [address] Care Team Providers Care Receiving Coordinator Name Role Phone Marian Crook MD Primary Care Provider + Marian Crook MD Primary Care Provider + Reason for Visit * Reason Onset Date Comments Med Refill 03/25/2024 Encounter Details Date Type Department Care Team (Late st Contact Info) Description 03/25/2024 Refill [facility] MEDICINE 230 [place] [address] Marian Crook MD 230 [place], [place] [phone] Social History Tobacco Use Types Packs/Day Years [...] Description 11/19/2024 3:30 PM EDT Office Visit [facility] CHC MED & PEDS 505 [place] [address] Annette Mitchell, TALI 230 [place] [address] 01/03/2025 9:00 AM EDT Office Visit [facility] OPTOMETRY [address] [place] [address] Ramon, Annette, OD 230 [place] [address] 01/07/2025 9:00 AM EDT Office Visit [facility] MEDICINE 230 [place] [address] Marian Crook MD 230 [place] [address] documented as of this encounter Visit Diagnoses Not on filedocumented in this encounter Additional Health Concerns Assessment Noted Time PHQ-9 Depression Total Score: 22 024 2:02 PM EDT documented as of this encounter Care Teams Receiving Coordinator Relationship Specialty Start Date End Date Marian Crook MD 230 [place] [address] PCP - General Internal Medicine 09/12/23 10/24/24 Mairan Crook MD 230 [place] [address] PCP - General Internal Medicine 10/25/24 documented as of this encounter
--- OUTSIDE RECORDS SUMMARY | 2024-11-16 16:41 | XMS_ITS | Encounter Summary ---
Author Organization [employer] Address [address] [place] [address] 7 [place] [address] Care Team Providers Care Traveling Electrician Name Role Phone [facility] Primary Care Provider [phone] Marian Crook MD Primary Care Provider + Marian Crook MD Primary Care Provider + Reason for Visit * Reason Onset Date Comments Nurse Triage 11/18/2022 Encounter Details Date Type Department Care Team (Late st Contact Info) Description 11/18/2022 Telephone [facility] MEDICINE 230 [place] [address] [facility] 230 [place], [place] [phone] Nurse Triage Social History Tobacco Use Types [...] dry vaginal area making intercourse painful. Apt withNP Adarsh 12/06/22 @ 330pm. Insurance is verified as [...] Description 11/19/2024 3:30 PM EDT Office Visit [facility] CHC MED & PEDS [address] [place] [address] Annette Mitchell CNP 230 [place] [address] 01/03/2025 9:00 AM EDT Office Visit [facility] OPTOMETRY [address] [place] [address] Annette Navarro, OD 230 [place] [address] 01/07/2025 9:00 AM EDT Office Visit [facility] MEDICINE 230 [place] [address] Marian Crook MD 230 [place] [address] documented as of this encounter Visit Diagnoses Not on filedocumented in this encounter Additional Health Concerns Assessment Noted Time PHQ-9 Depression Total Score: 16 06/18/ 023 3:25 PM EDT documented as of this encounter Care Teams Traveling Electrician Relationship Specialty Start Date End Date Alisha Hook FNP 230 [place] [address] PCP - General Family Medicine 11/14/21 09/11/23 Marian Crook MD [address] [place] [address] PCP - General Internal Medicine 09/12/23 10/24/24 Marian Crook MD [address] [place] [address] PCP - General Internal Medicine 10/25/24 documented as of this encounter
--- OUTSIDE RECORDS SUMMARY | 2024-11-16 16:41 | XMS_ITS | Encounter Summary ---
Author Organization [employer] Address [address] [place] [address] 7 [place] [address] Care Team Providers Care Junior Java Developer Name Role Phone Marian Crook MD Primary Care Provider + Marian Crook MD Primary Care Provider + Reason for Visit * Reason Onset Date Comments Nurse Triage 10/06/2024 Encounter Details Date Type Department Care Team (Late st Contact Info) Description 10/06/2024 Telephone [facility] MEDICINE 230 [place] [address] Marian Crook MD [address] [place] [address] Nurse Triage Social History Tobacco Use Types [...] t he electric, gas, oil or water [employer] threatened to shut off services in your [...] Telephone Encounter - Isis Arango RN - 10/06/2024 10:10 AM EDT Triage call Pt reports low blood sugar of 67 with symptoms of headache, shakiness and light headedness. This occurred the other day and treated with OJ which helped right away. Pt is at work during call and is concerned that these sx come more often. Pt is advised to carry candy bar in pocket with protein in it if possible. 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 Pt is advised to drinkjuice and pair with protein like cheese or milk and cookie if needed. Pt agrees with disposition. Pt is advised WIC is open till 8pm this evening if needs to see provider. Pt does have OV 10/12/24 with PCP to follow up this problem. Pt agrees with disposition. Will forward to PCP and nursing team for PRN follow up. Unable to check insurance verification due to computer error. Protocol Used: Diabetes - Low Blood Sugar (Adult) Protocol-Based Disposition: Discuss with PCP and Callback by Nurse within 1 Hour Video visit not offered Positive Triage Question: * Low blood glucose (70 mg/dL [3.9 mmol/l] or below) OR symptomatic, now improved with Care Advice AND cause unknown * All higher-acuity triage questions were negative Care Advice Discussed: * Reassurance and Education - Low Blood Sugar * Low Blood Sugar (Hypoglycemia) - Definition * Low Blood Sugar - Treatment - Eat Some (15-20 grams) Sugar Now * Reasons To Call Back - Symptoms do not improve within 30 minutes - Sleepiness or confusion occur - You become worse * Telephone Encounter - Lexi Leach - 10/06/2024 9:47 AM EDT Symptom: Low Blood Sugar - Caller Reports Outcome: Schedule an urgent appointment (within 1 hour) or talk to a nurse or provider soon Reason: Getting worse The caller accepted this outcome. documented in this encounter Plan of Treatment Upcoming Encounters Date Type Department Care Team (Late st Contact Info) Description 11/19/2024 3:30 PM EDT Office Visit [facility] CHC MED & PEDS 505 [place] [address] Annette Mitchell, GLASS INSERTER 230 [place] [address] 01/03/2025 9:00 AM EDT Office Visit [facility] OPTOMETRY [address] [place] [address] Annette Navarro, OD 230 [place] [address] 01/07/2025 9:00 AM EDT Office Visit [facility] MEDICINE 230 [place] [address] Marian Crook MD 230 [place] [address] documented as of this encounter Visit Diagnoses Not on filedocumented in this encounter Additional Health Concerns Assessment Noted Time PHQ-9 Depression Total Score: 22 024 2:02 PM EDT documented as of this encounter Care Teams Junior Java Developer Relationship Specialty Start Date End Date Marian Crook MD 230 [place] [address] PCP - General Internal Medicine 09/12/23 10/24/24 Marian Crook MD [address] [place] [address] PCP - General Internal Medicine 10/25/24 documented as of this encounter
--- OUTSIDE RECORDS SUMMARY | 2024-11-16 16:41 | XMS_ITS | Encounter Summary ---
Author Organization [employer] Address [address] [place] [address] 7 [place] [address] Care Team Providers Care Day Trader Name Role Phone Marian Crook MD Primary Care Provider + Marian Crook MD Primary Care Provider + Reason for Visit * Reason Onset Date Comments FYI 08/03/2024 Encounter Details Date Type Department Care Team ([facility] st Contact Info) Description 08/03/2024 Telephone [facility] MEDICINE 230 [place] [address] Marian Crook MD [address] [place] [address] FY Social History Tobacco Use Types Packs/Day Years [...] she has an upcoming visit with : [facility] Radiology 09/28 1pm . Should be at registration by 12:[address] documented in this encounter Plan of Treatment Upcoming Encounters Date Type Department Care Team (Late st Contact Info) Description 11/19/2024 3:30 PM EDT Office Visit [facility] MED & PEDS 505 [place] [address] Annette Mitchell, ADOPTION COUNSELOR 230 [place] [address] 01/03/2025 9:00 AM EDT Office Visit [facility] OPTOMETRY [address] [place] [address] Annette Navarro, OD 230 [place] [address] 01/07/2025 9:00 AM EDT Office Visit [facility] MEDICINE 230 [place] [address] Marian Crook MD 230 [place] [address] documented as of this encounter Visit Diagnoses Not on filedocumented in this encounter Additional Health Concerns Assessment Noted Time PHQ-9 Depression Total Score: 22 024 2:02 PM EDT documented as of this encounter Care Teams Day Trader Relationship Specialty Start Date End Date Marian Crook MD 230 [place] [address] PCP - General Internal Medicine 09/12/23 10/24/24 Marian Crook MD [address] [place] [address] PCP - General Internal Medicine 10/25/24 documented as of this encounter
--- OUTSIDE RECORDS SUMMARY | 2024-11-16 16:41 | XMS_ITS | Encounter Summary ---
Author Organization [employer] Address [address] [place] [address] 7 [place] [address] Care Team Providers Care Maintenance Craftsman Name Role Phone Marian Crook MD Primary Care Provider + Marian Crook MD Primary Care Provider + Reason for Visit * Reason Onset Date Comments Med Refill 03/25/2024 Encounter Details Date Type Department Care Team (Late st Contact Info) Description 03/25/2024 Refill [facility] MEDICINE 230 [place] [address] Marian Crook MD [address] [place], [place] [phone] Moderate persistent asthma without complication Social History [...] Office Visit [facility] CHC MED & PEDS [address] [place] [address] Annette Mitchell CNP 230 [place] [address] 01/03/2025 9:00 AM EDT Office Visit [facility] OPTOMETRY [address] [place] [address] Annette Navarro, OD 230 [place] [address] 01/07/2025 9:00 AM EDT Office Visit [facility] MEDICINE 230 [place] [address] Marian Crook MD [address] [place] [address] documented as of this encounter Visit Diagnoses Diagnosis Moderate persistent asthma without complication documented in this encounter Additional Health Concerns Assessment Noted Time PHQ-9 Depression Total Score: 22 024 2:02 PM EDT documented as of this encounter Care Teams Maintenance Craftsman Relationship Specialty Start Date End Date Marian Crook MD [address] [place] [address] PCP - General Internal Medicine 09/12/23 10/24/24 Marian Crook MD [address] [place] [address] PCP - General Internal Medicine 10/25/24 documented as of this encounter
--- OUTSIDE RECORDS SUMMARY | 2024-11-16 16:41 | XMS_ITS | Clinical Summary ---
Author Organization [facility] [employer] [facility] Address [address] [place] [address] Phone Care Team Providers Care Drawing Box Tender Name Role Phone Marian Crook MD Primary Care Provider + [phone] Encounters Date Type Department Care Team Description 09/28/2024 12:58 PM EDT - 09/28/2024 11:59 PM EDT Hospital Encounter [facility] Xray [address] [place] [phone] Dizziness and giddiness Discharge Disposition: Home or Self Care 09/12/2024 8:01 AM EDT - 09/12/2024 11:59 PM EDT Hospital Encounter [facility] MRI [address] [place] [phone] Leiomyoma of uterus, unspecified Discharge Disposition: Home [...] Signed Date: 09/14/2024 13:51 ET Workstation ID: [id number] Transcribed By: Self Edit Transcribed Date: 09/14/2024 [...] normal. No suspicious bone lesions. Procedure Note Courteny Pablo MD - 09/14/2024 PROCEDURE: Pelvic MRI [...] Signed Date: 09/14/2024 13:51 ET Workstation ID: [id number] Transcribed By: Self Edit Transcribed Date: 09/14/2024 13:23 ET Faheem Ma MD IMG MRI PROCEDURES Final Result from Last 3 Months Insurance [facility] Care Teams Drawing Box Tender Relationship Specialty Start Date End Date Marian Crook MD [address] [place] [phone] PCP - General Internal Medicine 07/08/24
--- OUTSIDE RECORDS SUMMARY | 2024-11-16 16:41 | XMS_ITS | Encounter Summary ---
Author Organization [employer] Address [address] [place] [address] [address] [place] [address] Care Team Providers Care Accounts Executive Name Role Phone Marian Crook MD Primary Care Provider + Marian Crook MD Primary Care Provider + Reason for Visit * Reason Onset Date Comments Med Refill 03/25/2024 Encounter Details Date Type Department Care Team (Late st Contact Info) Description 03/25/2024 Refill [facility] MEDICINE [address] [place] [address] Claritza Leonard DO [address], [place] [id number] Social History Tobacco Use Types Packs/Day Years [...] Description 11/19/2024 3:30 PM EDT Office Visit [facility] MED & PEDS [address] [place] [address] Annette Mitchell, TALI [address] [place] [address] 01/03/2025 9:00 AM EDT Office Visit [facility] OPTOMETRY [address] [place] [address] Ramon, Annette, OD [address] [place] [address] 01/07/2025 9:00 AM EDT Office Visit [facility] MEDICINE [address] [place] [address] Marian Crook MD [address] [place] [address] documented as of this encounter Visit Diagnoses Not on filedocumented in this encounter Additional Health Concerns Assessment Noted Time PHQ-9 Depression Total Score: 22 024 2:02 PM EDT documented as of this encounter Care Teams Accounts Executive Relationship Specialty Start Date End Date Marian Crook MD [address] [place] [address] PCP - General Internal Medicine 09/12/23 10/24/24 Marian Crook MD [address] [place] [address] PCP - General Internal Medicine 10/25/24 documented as of this encounter
--- OUTSIDE RECORDS SUMMARY | 2024-11-16 16:41 | XMS_ITS | Clinical Summary ---
Author Organization [employer] Address [address] [place] [address] 7[address] [place] [address] Care Team Providers Care Floor Care Specialist Name Role Phone Marian Crook MD [...] (twelve) hours. 30 g 12/23/19 24 Active albuterol 108 (90 Base) MCG/ACT inhalerIndicatio ns:Moderate persistent asthma without complication Inhale 2 puffs every 6 (six) hours if needed for shortness of breath or wheezing. 18 g 3 05/13/19 25 Active meloxicam (Mobic) 7.5 MG tablet TAKE 1 TABLET BY MOUTH EVERY DAY 30 tablet 06/03/19 25 Active lidocaine (Lidoderm) 5 % patch APPLY 1 PATCH TOPICALLY ONCE PER DAY. REMOVE & DISCARD PATCH WITHIN 12 HOURS OR DIRECTED BY MD. 30 patch 2 06/08/19 25 Active montelukast (Singulair) 10 MG [...] SPLIT. 50 tablet 2 07/31/19 25 Active Diclofenac Sodium 1 % gelIndications:C hronic pain of both knees APPLY 2 GRAMS TOPICALLY IN THE MORNING, AT NOON, IN THE EVENING AND AT BEDTIME NEEDED FOR PAIN 100 g 2 10/08/19 25 Active Blood Pressure kit Use TID at home 1 kit 10/07/19 25 Active midodrine (Proamatine) 2.5 MG tablet TOME REYNALDO TABLETA (2.5 MG) POR VIA ORAL KISHORE VECES AL BENJA 270 tablet 10/29/19 25 Active midodrine (Proamatine) 2.5 MG tablet Take 1 tablet (2.5 mg) by mouth 3 times daily. 90 tablet 10/07/19 25 025 Discontinued meclizine (Antivert) 25 MG tabletIndication s:Dizziness Take 0.5 tablets (12.5 mg) by mouth if needed in the morning, at noon, and at bedtime for dizziness for up to 10 days. 30 tablet 11/05/19 25 025 Active Problems Problem Noted Date Diagnosed Date Orthostatic hypotension 10/12/2024 Assessment & Plan (10/12/2024 2:20 PM EDT): Unclear if related to adrenal insufficiency, POTS,? Diabetes insipidus or other, we will refer to chemistry lab instructor. Started on low-dose midodrine, will slowly titrate up according to symptoms and to keep a normal BP. She is to follow-up BP with RN in 2 weeks and with me in 6 to 8 weeks. We discussed importance of continue drinking enough fluids Palpitations 07/23/2024 Bright red blood per rectum [...] related to patient's menorrhagia(she is followed by [facility] PHYS[facility]) + significant diuresis. Patient will have increase [...] for this letter, she has appt with [facility] next week. I told her to reach out to legal clerk to help her write a letter so that housing give her some more time to get the letter from MH provider. She will res tart Effexor for anxiety and fu with me in 6m Encounters Date Type Department Care Team Description 11/11/2024 Results Follow-Up [place] [phone] Marian Crook MD US Retroperitoneal Complete 11/08/2024 Orders Only [facility] External Provider, [facility] 11/04/2024 3:00 PM EDT Office Visit [address] [address] Annette Mitchell CNP Dizziness (Primary Dx) 11/04/2024 Travel 11/03/[address] [address] Karina Corley MA Chart Prep 11/03/[address] [address] Marian Crook MD Nurse Triage 10/28/2024 Refill [facility] [address] [place] [phone] NameStefan MD 10/26/2024 2:30 PM EDT Clinical Support [address] [address] Lisa Allison, MO[place] Orthostatic hypotension [I95.1] 10/26/2024 Travel 10/12/2024 9:00 AM EDT Office Visit [facility] [address] [place] [phone] Marian Crook MD Orthostatic hypotension (Primary Dx) 10/12/2024 Travel 10/09/2024 Telephone [facility] [address] [place] [phone] Marian Crook MD Chart Prep 10/06/2024 6:20 PM EDT Office Visit [facility] [address] [place] [phone] Stefan Meza MD Orthostatic hypotension (Primary Dx); Dizziness; Abnormal tilt table test 10/06/2024 Travel 10/06/2024 Telephone [facility] [address] [place] [address] Marian Crook MD Nurse Triage 10/05/[address] [address] Tata Fink NP Chronic pain of both knees 09/28/2024 Telephone [facility] [address] [place] [phone] Marian Crook MD Results 08/20/[address] [address] Marian Crook MD Call Back Request 08/19/2024 Orders Only [address] [address] Marian Crook MD 08/19/2024 Telephone [facility] [address], [place] [phone] Marian Crook MD from Last 3 Months Immunizations Immunization Administration [...] Passive Smoke Exposure: Never Smokeless Tobacco: Never Tobacco Cessation:Counseling Given: [...] Sign Reading Time Taken Comments Blood Pressure 112/74 11/04/2024 3:06 PM EDT Pulse 88 11/04/2024 3:06 PM EDT Temperature 36.8 C (98.2 F) 11/04/2024 3:06 PM EDT Respiratory Rate 12 11/04/2024 3:06 PM EDT Oxygen Saturation 97% 11/04/2024 3:06 PM EDT Inhaled Oxygen Concentration - - Weight 79.9 kg (176 lb 2 oz) 11/04/2024 3:06 PM EDT Height 157.5 cm (5' 2 ) 11/04/2024 3:06 PM EDT Body Mass Index 32.21 11/04/2024 3:06 PM EDT Plan of Treatment Upcoming Encounters Date Type Department Care Team (Late st Contact Info) Description 11/19/2024 3:30 PM EDT Office Visit [facility] [address] [place] [address] Annette Mitchell, TALI [address] [place] [address] 01/03/2025 9:00 AM EDT Office Visit [facility] [address] [place] [address] Annette Navarro, OD [address] [place] [address] 01/07/2025 9:00 AM EDT Office Visit [facility] [address] [place] [address] Marian Crook MD [address] [place] [address] Health Maintenance Due Date Last Done Comments CT Colonography 1975 Colonoscopy 1975 FIT 1975 FOBT 1975 Sigmoidoscopy 1975 Family Planning (PISQ) 1990 Hepatitis B Vaccines (2 of 3 - 19+ 3-dose series) 11/08/2013 10/11/2013, 12/02/2008, 10/11/2008 COVID-19 Vaccine ( season) 2023 04/25/2021, 05/14/2020, 04/23/2020 Influenza Vaccine (#1) 2024 , 12/20/2018, 05/15/2017, Additional history exists Mammogram 12/04/2024 12/05/2023, 09/21, 09/29/2017 Alcohol/Substance Use Screening 01/11/2025 01/12/2024 Zoster Vaccines (1 of 2) 2025 Depression Monitoring 04/14/2025 10/12/2024, 025 SDOH Screening 06/23/2025 06/23/2024 Disability Screening 11/04/2025 11/04/2024 Tobacco Screening 11/04/2025 11/04/2024 Colorectal Cancer Screening 02/01/2027 FIT DNA/Cologuard 02/01/2027 02/02/2024 Cervical Cancer Screening 05/05/2029 HPV/Cotest 05/05/2029 05/05/2024, 06/06/2020 Pap Smear 05/05/2029 05/05/2024, 06/06/2020 DTaP/Tdap/Td Vaccines (3 - Td or Tdap) 01/11/2034 01/12/2024, 12/03/2012, 10/11/2008, Additional history exists RSV Patients and Patients Aged 60 years or older (1 - 1-dose 75+ series) 2050 Pneumococcal Vaccine: Pediatrics (0 to 5 Years) and At-Risk Patients (6 to 49) Years Completed 01/12/2024, 10/11/2013 HIV Screening Completed 03/27/2024 [...] Name Priority Date/Time Associated Diagnosis Comments US RETROPERITONEAL COMPLETE Routine 11/08/2024 3:30 PM EDT POCT GLYCATED HEMOGLOBIN, TOTAL Routine 10/06/2024 6:07 PM EDT Dizziness POCT GLUCOSE Routine 10/06/2024 6:06 PM EDT Dizziness UREA NITROGEN, 24 HOUR URINE (W/O CREATININE) Routine 08/19/2024 8:30 AM EDT SODIUM, 24-HOUR URINE WITH CREATININE Routine 08/19/2024 8:30 AM EDT CHLORIDE W/O CREATININE, 24 HOUR URINE Routine 08/19/2024 8:30 AM EDT PROTEIN, TOTAL W/CREAT, 24 HOUR URINE Routine 08/19/2024 8:30 AM EDT POTASSIUM, 24-HOUR URINE WITH CREATININE Routine 08/19/2024 8:30 AM EDT HPV DNA, LOW/HIGH RISK Routine 10:22 AM EST PAP SMEAR Routine 05/05/2024 10:22 AM EST HEPATITIS C ANTIBODY Routine 03/27/2024 10:19 AM EST HIV 1/2 ANTIGEN/ANTIBODY, FOURTH GENERATION W/RFL Routine 03/27/2024 10:19 AM EST LAB COLOGUARD COLON CANCER SCREEN Routine 02/02/2024 9:15 AM EST Screening for colorectal cancer BI MAMMOGRAM SCREENING TOMOSYNTHESIS BILATERAL Routine 12/05/2023 3:30 PM EDT Screening mammogram for breast cancer from Last 3 Months or Most Recently Relevant to Health Maintenance Results * US Retroperitoneal Complete (11/08/2024 3:30 PM EDT) Anatomical Region Laterality Modality Ultrasound 11/08/2024 3:30 PM EDT Narrative 11/09/2024 7:01 AM EDT [place] [address] Ultrasound Report Signed Patient: Corina Nielsen MR#: [id number] : 1975 Acct:[id number] Age/Sex: 49 / F ADM Date: 11/08/24 Loc: HO.US Attending Dr: Shelly PATEL Ordering Physician: Shelly Bo Date of Service: 11/08/24 Procedure(s): US retroperitoneal comp Accession Number(s): [id number] cc: Marian Crook MD; Shelly oB EXAMINATION: US RETROPERITONEUM HISTORY: R35.0 - Frequency of micturition TECHNIQUE: Real-time grayscale ultrasound imaging of the kidneys was performed and images were reviewed. COMPARISON: Comparison is made with the prior examination dated 04/20/2024. FINDINGS: Right kidney: The right kidney measures 9.8 x 5.1 x 5.0 cm. Renal parenchymal echotexture and thickness are normal. There is a parapelvic cyst at the lower pole measuring 1.6 x 1.0 x 1.2 cm. There is no hydronephrosis or renal calculi. Left Kidney: The left kidney measures 10.9 x 5.8 x 5.4 cm. Renal parenchymal echotexture and thickness are normal. There are multiple parapelvic cysts, the largest of which is in the interpolar region measuring 3.8 x 2.2 x 2.1 cm. There is no hydronephrosis or renal calculi. The urinary bladder is unremarkable. Bilateral ureteral jets are identified. Before voiding, the urinary bladder measured 6.4 x 5.4 x 9.7 cm, for an estimated volume of 173 mL. After voiding, the urinary bladder measured 3.9 x 0.8 x 3.7 cm, for an estimated volume of 6.1 mL. US/US retroperitoneal comp IMPRESSION: 1. Multiple bilateral renal parapelvic cysts without change. 2. Post void bladder residual of 6.1 mL. Electronically signed by: Dorian [place] MD 11/09/2024 06:58 AM EDT Dictated By: Dorian [place] MD Signed By: <Electronically signed by Dorian [place] MD in OV> 11/09/24 0658 DD/ 1530 TD/TT: 11/08/24 1600 Spikemaking Supervisor: Procedure Note Donotuseinterpreter, Image - 11/09/2024 [place] [address] Ultrasound Report Signed Patient: Yarelis Nielsen#: [id number] : 1975Acct:[id number] Age/Sex: 49 / FADM Date: 11/08/24 Loc: .US Attending Dr: Shelly PATEL Ordering Physician: Shelly Bo Date of Service: 11/08/24 Procedure(s): US retroperitoneal comp Accession Number(s): [id number] cc: Marian Crook MD; Shelly Bo EXAMINATION: US RETROPERITONEUM HISTORY: R35.0 - Frequency of micturition TECHNIQUE: Real-time grayscale ultrasound imaging of the kidneys was performed and images were reviewed. COMPARISON: Comparison is made with the prior examination dated 04/20/2024. FINDINGS: Right kidney: The right kidney measures 9.8 x 5.1 x 5.0 cm. Renal parenchymal echotexture and thickness are normal. There is a parapelvic cyst at the lower pole measuring 1.6 x 1.0 x 1.2 cm. There is no hydronephrosis or renal calculi. Left Kidney: The left kidney measures 10.9 x 5.8 x 5.4 cm. Renal parenchymal echotexture and thickness are normal. There are multiple parapelvic cysts, the largest of which is in the interpolar region measuring 3.8 x 2.2 x 2.1 cm. There is no hydronephrosis or renal calculi. The urinary bladder is unremarkable. Bilateral ureteral jets are identified. Before voiding, the urinary bladder measured 6.4 x 5.4 x 9.7 cm, for an estimated volume of 173 mL. After voiding, the urinary bladder measured 3.9 x 0.8 x 3.7 cm, for an estimated volume of 6.1 mL. US/US retroperitoneal comp IMPRESSION: 1. Multiple bilateral renal parapelvic cysts without change. 2. Post void bladder residual of 6.1 mL. Electronically signed by: Dorian [place] MD 11/09/2024 06:58 AM EDT Dictated By: Dorian [place] MD Signed By: <Electronically signed by Dorian [place] MD in OV> 11/09/24 0658 DD/ 1530 TD/TT: 11/08/24 1600 Spikemaking Supervisor: [facility] External Provider IMG US PROCEDURES Edited Result - Final * POCT HGB A1C (10/06/2024 6:07 PM EDT) Hemoglobin A1C 5.5 4.0 - 5.7 % Blood 10/06/2024 6:07 PM EDT Stefan Meaz MD POINT OF CARE TEST ENTER/EDIT OR DERABLES Final Result * POCT Glucose (10/06/2024 6:06 PM EDT) Glucose Blood, POC 128 60 - 200 mg/dL Blood Capillary blood specimen / Unknown 10/06/2024 6:06 PM EDT Stefan Meza MD POINT OF CARE TEST ENTER/EDIT OR DERABLES Final Result * Potassium, 24-Hour Urine with Creatinine (08/19/2024 8:30 AM EDT) Potassium, 24 Hour Urine 57.1 25 - 125 mmol/Day [facility] Potassium, 24U 28.9 mmol/L [facility] Creatinine, 24 Hour Urine 1.6 1.0 - 2.0 G/Day [facility] Creatinine, Urine 81.54 [facility] Urine Total Volume 24 Hour 1,975 mL [facility] 08/19/2024 8:30 AM EDT 08/19/2024 11:32 AM EDT [facility] - 08/19/2024 1:58 PM EDT [id number] Marian Crook MD LAB URINE ORDERABLES Fin al Result Performing Organization Address City/[facility]/ZIP Co de Phone Number [facility] [address] [place] [phone] * Sodium, 24-Hour Urine with Creatinine (08/19/2024 8:30 AM EDT) Sodium, 24 Hour Urine 128.4 40 - 220 mmol/Day [facility] 08/19/2024 8:30 AM EDT 08/19/2024 11:32 AM EDT [facility] - 08/19/2024 1:58 PM EDT [id number] Marian Crook MD LAB URINE ORDERABLES Fin al Result Performing Organization Address City/[facility]/ZIP Co de Phone Number [facility] [address] [place] [phone] * Protein, Total, 24-Hour Urine with Creatinine (08/19/2024 8:30 AM EDT) Protein, Total, 24 Hr Urine <138 <150 mg/Day [facility] Protein, Urine <7 mg/dL [facility] 08/19/2024 8:30 AM EDT 08/19/2024 11:32 AM EDT [facility] - 08/19/2024 1:58 PM EDT [id number] Marian Crook MD LAB URINE ORDERABLES Fin al Result [facility] [address] [place] [phone] * Urea Nitrogen, 24-Hour Urine without Creatinine (08/19/2024 8:30 AM EDT) Urea Nitrogen, 24 Hr Ur 9 6 - 17 g/24 h [facility] Comment:TOTAL URINE VOLUME: THIS TEST WAS PERFORMED AT:[facility] [place] [phone] OLIVAS MD 08/19/2024 8:30 AM EDT 08/19/2024 11:32 AM EDT [facility] - 08/20/2024 5:24 PM EDT [id number] us Marian Crook MD LAB URINE ORDERABLES Fin al Result [facility] [address] [place] [phone] * Chloride, 24-Hour Urine without Creatinine (08/19/2024 8:30 AM EDT) Chloride, 24 Hour Urine 150.1 110 - 250 mmol/Day [facility] CHLORIDE (MMOL/L) IN URINE 76.0 mmol/L [facility] 08/19/2024 8:30 AM EDT 08/19/2024 11:32 AM EDT Narrative [facility] - 08/19/2024 1:58 PM EDT [id number] Marian Crook MD LAB URINE ORDERABLES Fin al Result Performing Organization Address City/[facility]/ZIP Co de Phone Number [facility] [address] [place] [phone] * HPV DNA, Low/High Risk (05/05/2024 10:22 AM EST) HPV High Risk Negative Negative [facility] HPV Genotype 16 Negative Negative [facility] HPV Genotype 18 Negative Negative [facility] Comment:HPV testing performe d at [facility] (CLIA#[id number]), [address] [place] [address].Testing for HPV was performed using the Jon [...] ORDERAB LES Final Result Performing Organization Address [facility]/ZIP Co de Phone Number [facility] [address] [place] [phone] * Pap Smear (05/05/2024 10:22 AM EST) 05/05/2024 10:2 2 AM EST 05/06/2024 6:10 AM EST Narrative [facility] - 05/11/2024 9:16 AM EST ----- ------- Name: Corina Nielsen Age/Sex: 49/F : 1975 Unit#: [id number] Attend Dr: Pj Posadas MD Re05/05/24 Status: DEP REF Location: [facility] Disch: ----- ------- SPEC : [id number] RECD: 05/06/24 STATUS: YESSI CARDENAS NUM: [id number] LAURA: 05/05/24-[address] [facility] [address]: Pj Posadas MD ENTERED: 05/06/24 SP TYPE: Pap Smr OTHR DR: Marian Crook MD ORDERED: Pap Smear Interpretation Satisfactory for evaluation. Negative for intraepithelial lesion or malignancy. No endocervical cells seen. HPV High Risk: Negative HPV Genotyping 16: Negative HPV Genotyping 18: Negative Clinical Information LMP: Previous PAP test: 5 years ago Other surgery: Other history: Material Received ThinPrep-Cervical Copies To: Marian Crook MD [address] [address] Pj Posadas MD [facility] [address] [place] [address] [place] [phone] ----- ------- Signed (signature on file) SCARLET Hernandez ([facility]) 05/11/24 0916 ----- ------- END OF REPORT Generic External Data Provider LAB CYTOLOGY ORDE RABLES Final Result Performing Organization Address [facility] Co de Phone Number [facility] [address] [place] [phone] * Hepatitis C Ab (03/27/2024 10:19 AM EST) Pathologist [facility] Hepatitis C Antibody Nonreactive Nonreactive [facility] Comment:Antibodies to HCV no t detected; does not exclude early acuteHCV infection. 03/27/2024 10:1 9 AM EST 03/27/2024 10:19 AM EST Generic External Data Provider LAB BLOOD ORDERAB LES Final Result Performing Organization Address [facility] Co de Phone Number [facility] [address] [place] [phone] * HIV-1/2 Antigen and Antibodies, Fourth Generation, with Reflexes (03/27/2024 10:19 AM EST) Pathologist [facility] HIV AB/AG Nonreactive Nonreactive [facility] Comment:HIV-1 p24 Ag and/or HIV-1/HIV-2 Ab not detected.A test result that is nonreactive does not exclude thepossibility of exposure to or infection with HIV-1 and/orHIV-2. Nonreactive results in this assay for individualswith prior exposure to HIV-1 and/or HIV-2 may be due toantigen and antibody levels that are below the limit ofdetection of this assay.The [employer] HIV Ag/Ab Combo assay result andsupplemental assay results should be interpreted inconjunction with the patient's clinical presentation,history and other laboratory results. If the results areinconsistent with clinical evidence, additional testing issuggested to confirm the result. 03/27/2024 10:1 9 AM EST 03/27/2024 10:19 AM EST us Generic External Data Provider LAB BLOOD ORDERAB LES Final Result Performing Organization Address City/State/[facility] Co de Phone Number [facility] [address] [place] [phone] * Cologuard?? colon cancer screening (02/02/2024 9:15 AM EST) Cologuard Result Negative Negative 02/08/20 2:05 AM EST [employer] (CLIA #:[id number]) Comment: NEGATIVE TEST RESULT. A negative Cologuard result indicates a low likelihood that a colorectal cancer (CRC) or advanced adenoma (adenomatous polyps with more advanced pre-malignant features) is present. The chance that a person with a negative Cologuard test has a colorectal cancer is less than 1 in 1500 (negative predictive value >99.9%) or has an advanced adenoma is less than 5.3% (negative predictive value 94.7%). These data are based on a prospective cross-sectional study of 10,000 individuals at average risk for colorectal cancer who were screened with both Cologuard and colonoscopy. (Isadora Rodriguez al, N Engl J Med 2014;370(14):8868-6279) The normal value (reference range) for this assay is negative. COLOGUARD RE-SCREENING RECOMMENDATION: Periodic colorectal cancer screening is an important part of preventive healthcare for asymptomatic individuals at average risk for colorectal cancer. Following a negative Cologuard result, the [place] [employer] and U.S. Multi-Society Task Force screening guidelines recommend a Cologuard re-screening interval of 3 years. References: [place] [employer] Guideline for Colorectal Cancer Screening: https://www.cancer.org/cancer/hibca-yoxydh-fdfjic/oodnrresa-izxhfqhha-rbkfujl/ac s-rec ommendations.html.; Hector DK, Julio Cesar CR, Janet TroncosoK, Colorectal Cancer Screening: Recommendations for Physicians and Patients from the U.S. Multi-Society Task Force on Colorectal Cancer Screening , Am J Gastroenterology 2017; 112:2458-5306. TEST DESCRIPTION: Composite algorithmic analysis of stool DNA-biomarkers with hemoglobin immunoassay. Quantitative values of individual biomarkers are not [...] (Isadora Rodriguez al, N Engl J Med 2014;370(14):3508-8612.) Cologuard may produce a false negative or false positive result (no colorectal cancer or precancerous polyp present at colonoscopy follow up). A negative Cologuard test result does not guarantee the absence of CRC or advanced adenoma (pre-cancer). The current Cologuard screening interval is every 3 years. ([place] [employer] and U.S. Multi-Society Task Force). Cologuard performance data in a 10,000 patient pivotal study using colonoscopy as the reference method can be accessed at the following location: www.[employer].Onavo/results. Additional description of the Cologuard test process, warnings and precautions can be found at www.colFluoresentricrd.com. Stool specimen (specimen) Rectal contents / Unknown 02/02/2024 9:15 AM EST 02/03/2024 10:52 AM EST Marian Crook MD LAB MOLECULAR DIAGNOSTIC S ORDERABLES Final Result [employer] (CLIA #:[id number]) [place] [address], * BI Mammogram Screening Tomosynthesis Bilateral (12/05/2023 3:30 PM EDT) Anatomical Region Laterality Modality Breast Bilateral Mammography 12/05/2023 3:30 PM EDT Narrative 12/19/2023 8:58 AM EDT [facility] [address] [place] [address] Mammography Report Signed Patient: Corina Nielsen MR#: [id number] : 1975 Acct:[id number] Age/Sex: 48 / F ADM Date: 12/05/23 Loc: HO.MAMMO Attending Dr: Marian Crook MD Ordering Physician: Marian Crook MD Results: 1Ne gative Date of Service: 12/05/23 Follow Up: 1 Year From [facility] Procedure(s): MM tomosynthesis screening BI Accession Number(s): [id number] cc: Marian Crook MD EXAMINATION: MM SCREENING [...] 12/19/23 0855 DD/ 1530 TD/TT: 12/05/23 1540 Spikemaking Supervisor: Procedure Note Donotuseinterpreter, Image - 12/19/2023 [facility] [address] [place] [address] Mammography Report Signed Patient: Yarelis Nielsen#: [id number] : 1975Acct:[id number] Age/Sex: 48 / FADM Date: 12/05/23 Loc: HO.MAMMO Attending Dr: Marian Crook MD Ordering Physician: Marian Crook MDResults: 1Ne gative Date of Service: 12/05/23Follow Up: 1 Year From [facility] Procedure(s): MM tomosynthesis screening BI Accession Number(s): [id number] cc: Marian Crook MD EXAMINATION: MM SCREENING [...] 12/19/23 0855 DD/ 1530 TD/TT: 12/05/23 1540 Spikemaking Supervisor: Marian Crook MD IMG BI PROCEDURES Final Result from Last 3 Months or Most Recently Relevant to Health Maintenance Insurance [facility] 3 Care Teams Floor Care Specialist Relationship Specialty Start Date End Date Marian Crook MD [address] [place] [phone] PCP - General Internal Medicine 10/25/24
== END 2024-11-16 16:37 | disposition home or self-care (01) ==
LOC: HO.HUSH 15:59
PROVIDERS: PCP Internal Medicine; Visit Provider Nurse Practitioner Family
DX: R35.0 Frequency of micturition (principal); N28.1 Cyst of kidney, acquired; R39.15 Urgency of urination; N39.3 Stress incontinence (female) (male); Z13.9 Encounter for screening, unspecified
CPT/HCPCS: 99213

== ENCOUNTER → 2024-11-16 15:58 | Outpatient (BNVA) | payer OTHER, SELFPAY | PROVIDERS: PCP Internal Medicine; Visit Provider Nurse Practitioner Family | DX: R35.0 Frequency of micturition (principal); N28.1 Cyst of kidney, acquired; N39.3 Stress incontinence (female) (male) | CPT/HCPCS: 81003; 99212 ==

== ENCOUNTER 2024-12-17 08:32 | Outpatient (AMB) | payer OTHER, SELFPAY ==
[2024-12-17 08:38] VITALS: BP 110/60; PULSE 78; O2SAT 98; BMI 32.3
--- NOTE | 2024-12-17 08:38 | A.OFFVIS_ITS ---
Vital Signs 12/17/24 08:38 Height 5 ft 3 in Weight 182 lb 8.684 oz BMI 32.3 BP 110/60 Blood Pressure Location Rt brachial Pulse 78 Pulse Source Pulse Oximeter Pulse Oximetry (%) 98 Oxygen Delivery Method Room Air Intake Visit Reasons: Orthostatic hypotension Intake Note: New patient present today for Orthostatic hypotension. Accompanied by: Self / Same As Patient Allergies No Known Allergies (No Known Allergies*) Allergy (Verified 12/17/24 08:38) Medication List - Last Reconciled 12/17/24 by Aspen Ponce MD albuterol sulfate 1 vial inhalation Q4H PRN cholecalciferol (vitamin D3) (Vitamin D3) 50 mcg PO DAILY lidocaine 5% 1 patch topical DAILY meclizine 25 mg PO BID PRN midodrine 2.5 mg PO TID omeprazole 20 mg PO DAILY HPI Comments Details: 49-year-old female presenting today for initial evaluation of concerns of adrenal insufficiency. Patient was referred here by PCP due to symptoms of dizziness that have been worsening over the past few months. Patient is very distressed about her symptoms and says that she has not been able to function like she did before and it is also affecting her work. Has diagnosis of orthostatic hypotension Started on midodrine 2.5 mg t.i.d. with some improvement Gained 30 lbs in the last 6 months Has history of lap sleeve gastrectomy 2017 or 2018 Reports low energy , feeling weak Got cortisone shots September 2024 in B/L knees No other use of prednisone, hydrocortisone, no steroid creams or inhalers No history of trauma to head No history of opioid use or drug use Holter monitor 08/20/2024 was normal per PCP. Tilt-table test positive for orthostatic hypotension. 24 hour urine volume was 1.9 L per PCP notes, this is not significant for polyuria. no concern for DI. Works in a [employer] Never smoker Occasional alcohol Laboratory Tests 05/05/24 06/18/24 09/07/24 11:23 08:29 15:00 Sodium 138 Potassium 3.9 Creatinine 0.86 Estimated GFR > 60 TSH 0.78 Physical exam General: sitting comfortably in no acute distress HEENT: normocephalic/atraumatic, Neck: supple, Cardiac: normal heart sounds Pulm: normal breath sounds B/L, no added breath sounds Abd: not distended, no tenderness Extremities: no edema, no signs of myxedema Neuro: AAO x3, Speech: normal, no facial droop, moving all 4 extremities PFSH Medical History delivery delivered Depression Anal fissure Hemorrhoids Chronic RLQ pain Polyuria Dizziness FILIBERTO (obstructive sleep apnea) Moderate persistent asthma in adult without complication Chronic low back pain Iron deficiency Arthritis History of asthma Surgical History Hx of colonoscopy History of esophagogastroduodenoscopy (EGD) S/P laparoscopic sleeve gastrectomy H/O abdominoplasty Family History Mother History of hypertension Arthritis Glaucoma Father Heart problem History of hypertension Brother Heart problem History of hypertension Sister History of hypertension Brother No problems noted. Brother No problems noted. Brother No problems noted. Brother No problems noted. Sister Ovarian cancer Sister No problems noted. Sister No problems noted. 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 Patient was referred by PCP to do history of hypotension. She has a positive tilt-table test with diagnosis of orthostatic hypotension, started on midodrine 2.5 mg t.i.d.. She has had some improvement on the midodrine. No cortisol or ACTH levels checked. She does not have any prior history of trauma to her head, chronic use of opioids, exogenous steroid use to suggest why she would be at risk of adrenal insufficiency. No other history of autoimmune diseases. Patient has not seen a welder gas automatic, did have a Holter monitor test in September 2024 which was normal per PCP notes and patient. She has been gaining weight and reports 30 lb weight gain in the past 6 months. This does not fit the picture of adrenal insufficiency has patients will have weight loss, however given her other symptoms of lightheaded in her cysts and dizziness, we will check a baseline cortisol and ACTH level. She did have a cortisone shot bilaterally in her knees in September 2024, to avoid interference with testing, I have asked her not to do the test right now but do it in another 4 weeks or so to allow adequate time for the exogenous cortisone to have gone out of her system. We will reach out with the results, if her cortisol levels are equivocal, we will consider doing a ACTH stimulation test. There was also concern mentioned by the PCP regarding possibility of diabetes insipidus, however 24 hour urine level was 1.9 L, this is not consistent with polyuria, hence no concern for diabetes insipidus. I discussed with the patient in detail that given she already has a positive tilt-table test, she has a diagnosis of orthostatic hypotension being the cause of her hypotension, and usually conservative measures are recommended 1st including increasing salt intake, increasing water intake, compression stockings, and she has already been started on the midodrine as well. If these measures do not improve her symptoms, she should be referred to Cardiology or Neurology for management of orthostatic hypotension. Plan: -ordered cortisol, acth, DHEA-S, BMP to be done at 08:00 We will reach out with the results with the consideration for ACTH stimulation test if needed Conservative measures discussed for orthostatic hypotension management Follow up in April 2025 Plan I spent 45 minutes in reviewing the record, seeing the patient and documenting in the medical record. Orders: Orders Adrenocorticotropic Hormone 4 Weeks I95.9 - Hypotension, unspecified Cortisol Random 4 Weeks I95.9 - Hypotension, unspecified Basic Metabolic Panel 4 Weeks I95.9 - Hypotension, unspecified DHEA Sulfate 4 Weeks I95.9 - Hypotension, unspecified Patient Instructions: do 8 AM blood work end of December 2024 , we will let you know the results on the phone Follow up in Apr 2025 Coding Level of Care Code New Pt Level 4 (99512) Diagnoses Orthostatic hypotension I95.1 Hypotension type: orthostatic hypotension Time Spent (min) 45
--- OUTSIDE RECORDS SUMMARY | 2024-12-17 08:53 | XMS_ITS | Clinical Summary ---
Author Organization [facility] Address [address] [place] [address] Phone Care Team Providers Care Human Resources Training Manager Name Role Phone Marian Crook MD Primary Care Provider + [phone] Encounters Date Type Department Care Team Description 09/28/2024 12:58 PM EDT - 09/28/2024 11:59 PM EDT Hospital Encounter [facility] Xray [address] [place] [address] Dizziness and giddiness Discharge Disposition: Home or Self Care from [...] 19+ 3-dose series) 11/08/2013 10/11/2013, 12/02/2008, 10/11/2008 Depression Screening 03/24/2024 Hepatitis C Screening 07/08/2024 Social Influencers of Health Screening 07/08/2024 COVID-19 Vaccine ( season) 2024 04/25/2021, 05/14/2020, 04/23/2020 Influenza Vaccine (#1) 2024 , 12/20/2018, 05/15/2017, Additional history exists Colorectal Cancer Screening: FIT-DNA (Cologuard) 02/01/2027 02/02/2024 Cervical Cancer Screening: Pap Smear 05/05/2027 05/05/2024 DTaP,Tdap,and Td Vaccines (5 - Td or Tdap) 01/11/2034 01/12/2024, 12/03/2012, 10/11/2008, Additional history exists RSV Immunization Adult Patients (1 - 1-dose 75+ series) 2050 Varicella Vaccines Aged Out 12/02/2008 No longer [...] 09/28/2024 1:14 PM EDT Dizziness and giddiness from Last 3 Months Results * Tilt [...] CV CARDIAC SERVICES PROCEDUR ES Final Result from Last 3 Months Insurance [facility] Care Teams Human Resources Training Manager Relationship Specialty Start Date End Date Marian Crook MD [address] [phone] PCP - General Internal Medicine 07/08/24
--- OUTSIDE RECORDS SUMMARY | 2024-12-17 08:53 | XMS_ITS | Encounter Summary ---
Author Organization [employer] Address [address] [place] [address] 7 [place] [address] Care Team Providers Care Line Person Name Role Phone Marian Crook MD Primary Care Provider + Marian Crook MD Primary Care Provider + Reason for Visit * Reason Onset Date Comments Med Refill 03/25/2024 Encounter Details Date Type Department Care Team (Late st Contact Info) Description 03/25/2024 Refill [facility] [address] [place], [place] [phone] Claritza Leonard DO [address] [place], [place] [phone] Social History Tobacco Use Types Packs/Day Years [...] Care Team (Late st Contact Info) Description 01/03/2025 9:00 AM EDT Office Visit [facility] [address] [place] [address] Ramon, Annette, OD [address] [place] [address] 01/07/2025 9:00 AM EDT Office Visit [facility] [address] [place] [address] Marian Crook MD [address] [place] [address] documented as of this encounter Visit Diagnoses Not on filedocumented in this encounter Additional Health Concerns Assessment Noted Time PHQ-9 Depression Total Score: 22 024 2:02 PM EDT documented as of this encounter Care Teams Line Person Relationship Specialty Start Date End Date Marian Crook MD [address] [place] [address] PCP - General Internal Medicine 09/12/23 10/24/24 Marian Crook MD [address] [place] [address] PCP - General Internal Medicine 10/25/24 documented as of this encounter
--- OUTSIDE RECORDS SUMMARY | 2024-12-17 08:53 | XMS_ITS | Encounter Summary ---
Author Organization [employer] Address [address] [facility] 7[address] [place] [address] Care Team Providers Care Housekeeper Caregiver Name Role Phone Marian Crook MD Primary Care Provider + Encounter Details Date Type Department Care Team (Latest Contact Info) Description 11/11/2024 Results Follow-Up [facility] [address] [place], [place] [phone] Marian Crook MD [address] [place] [address] [place] [facility] Complete Social History Tobacco Use Types Packs/Day [...] the past 12 months, has t he [employer], gas, oil or water company threatened to [...] Description 01/03/2025 9:00 AM EDT Office Visit [facility] [address] [place] [address] Ramon, Annette, OD [address] [place] [address] 01/07/2025 9:00 AM EDT Office Visit [facility] [address] [place] [address] Marian Crook MD [address] [place], [place] [phone] documented as of this encounter Visit Diagnoses Not on filedocumented in this encounter Additional Health Concerns Assessment Noted Time PHQ-9 Depression Total Score: 13 025 9:26 AM EDT documented as of this encounter Care Teams Housekeeper Caregiver Relationship Specialty Start Date End Date Marian Crook MD [address] [place] [address] [place] [address] PCP - General Internal Medicine 10/25/24 documented as of this encounter
--- OUTSIDE RECORDS SUMMARY | 2024-12-17 08:53 | XMS_ITS | Encounter Summary ---
Author Organization [employer] Address [address] [place] [address] 7 [place] [address] Care Team Providers Care Marketing Secretary Name Role Phone Marian Crook MD Primary Care Provider + Marian Crook MD Primary Care Provider + Reason for Visit * Reason Comments Med Change Request Encounter Details Date Type Department Care Team ([facility] st Contact Info) Description 06/17/2024 Refill [facility] [address] [place] [address] Marian Crook MD [address] [place], [place] [phone] Social History Tobacco Use Types Packs/Day Years [...] Description 01/03/2025 9:00 AM EDT Office Visit [facility] [address] [place] [address] Ramon, Annette, OD [address] [place] [address] 01/07/2025 9:00 AM EDT Office Visit [facility] [address] [place] [address] Marian Crook MD [address] [place] [address] documented as of this encounter Visit Diagnoses Not on filedocumented in this encounter Additional Health Concerns Assessment Noted Time PHQ-9 Depression Total Score: 22 024 2:02 PM EDT documented as of this encounter Care Teams Marketing Secretary Relationship Specialty Start Date End Date Marian Crook MD [address] [place] [address] PCP - General Internal Medicine 09/12/23 10/24/24 Marian Crook MD [address] [place] [address] PCP - General Internal Medicine 10/25/24 documented as of this encounter
--- OUTSIDE RECORDS SUMMARY | 2024-12-17 08:53 | XMS_ITS | Encounter Summary ---
Author Organization [employer] Address [address] [place] [address] [address] [place] [address] Care Team Providers Care Ski Base Trimmer Name Role Phone Marian Crook MD Primary Care Provider + Marian Crook MD Primary Care Provider + Reason for Visit * Reason Comments Med Refill Encounter Details Date Type Department Care Team ([facility] st Contact Info) Description 06/05/2024 Refill [facility] [address] [place] [address] Marian Crook MD [address] [place], [place] [phone] Social History Tobacco Use Types Packs/Day Years [...] Description 01/03/2025 9:00 AM EDT Office Visit [facility] [address] [place] [address] Ramon, Annette, OD [address] [place] [address] 01/07/2025 9:00 AM EDT Office Visit [facility] [address] [place] [address] Marian Crook MD [address] [place] [address] documented as of this encounter Visit Diagnoses Not on filedocumented in this encounter Additional Health Concerns Assessment Noted Time PHQ-9 Depression Total Score: 22 024 2:02 PM EDT documented as of this encounter Care Teams Ski Base Trimmer Relationship Specialty Start Date End Date Marian Crook MD [address] [place] [address] PCP - General Internal Medicine 09/12/23 10/24/24 Marian Crook MD [address] [place] [address] PCP - General Internal Medicine 10/25/24 documented as of this encounter
--- OUTSIDE RECORDS SUMMARY | 2024-12-17 08:53 | XMS_ITS | Encounter Summary ---
Author Organization [employer] Address [address] [place] [address] [address] [place] [address] Care Team Providers Care Pattern Data Operator Name Role Phone Marian Crook MD Primary Care Provider + Marian Crook MD Primary Care Provider + Reason for Visit * Reason Onset Date Comments Med Refill 06/02/2024 Encounter Details Date Type Department Care Team ([facility] st Contact Info) Description 06/02/2024 Telephone [facility] [address] [place], [place] [phone] Marian Crook MD [address] [place], [place] [phone] Med Refill Social History Tobacco Use Types [...] Description 01/03/2025 9:00 AM EDT Office Visit [facility] [address] [place] [address] RamonAnnette garzon, OD [address] [place] [address] 01/07/2025 9:00 AM EDT Office Visit [facility] [address] [place] [address] Marian Crook MD [address] [place] [address] documented as of this encounter Visit Diagnoses Diagnosis Moderate persistent asthma without complication documented in this encounter Additional Health Concerns Assessment Noted Time PHQ-9 Depression Total Score: 22 024 2:02 PM EDT documented as of this encounter Care Teams Pattern Data Operator Relationship Specialty Start Date End Date Marian Crook MD [address] [place] [address] PCP - General Internal Medicine 09/12/23 10/24/24 Marian Crook MD [address] [place] [address] PCP - General Internal Medicine 10/25/24 documented as of this encounter
--- OUTSIDE RECORDS SUMMARY | 2024-12-17 08:53 | XMS_ITS | Clinical Summary ---
Author Organization [employer] Address [address] [facility] 7t [place] [address] Care Team Providers Care Psychopaedic Nurse Name Role Phone Marian Crook MD Primary Care Provider + Allergies No known active allergies Medications Vaginal Lubricant (Replens) gelIndications: Vaginal dryness Insert 2 g into the vagina if needed (vaginal dryness). 35 g 1 12/07/19 23 Active Additional Information Patient not taking.Reported on 11/19/2024 Omeprazole 20 MG tablet delayed-release Indications:Lennox n of right hip Take 20 mg by mouth in the morning for 14 days. 14 tablet 02/29/20 23 Active nitroglycerin (Rectiv) 0.4 % (w/w) rectal ointmentIndicat ions:Anal fissure Insert 1 inch (1 Application.) into the rectum every 12 (twelve) hours. 30 g 12/23/19 24 Active Additional Information Patient not taking.Reported on 11/19/2024 albuterol 108 (90 Base) MCG/ACT inhalerIndicati ons:Moderate persistent asthma without complication Inhale 2 puffs every 6 (six) hours if needed for shortness of breath or wheezing. 18 g 3 05/13/19 25 Active lidocaine (Lidoderm) 5 % patch [...] SPLIT. 50 tablet 2 07/31/19 25 Active Blood Pressure kit Use TID at home 1 kit 10/07/19 25 Active midodrine (Proamatine) 2.5 MG tablet TOME REYNALDO TABLETA (2.5 MG) POR VIA ORAL KISHORE VECES AL BENJA 270 tablet 10/29/19 25 Active meclizine (Antivert) 25 MG tabletIndicatio ns:Dizziness Take 0.5 tablets (12.5 mg) by mouth if needed in the morning, at noon, and at bedtime for dizziness. 30 tablet 3 11/20/19 25 2024 Active Diclofenac Sodium 1 % gelIndications: Chronic midline low back pain, unspecified whether sciatica present APPLY 2 GRAMS TOPICALLY IN THE MORNING, AT NOON, IN THE EVENING AND AT BEDTIME NEEDED FOR PAIN 100 g 2 11/20/19 25 Active meloxicam (Mobic) 7.5 MG tablet TOME 1 TABLETA POR VIA ORAL TODOS LOS CARDOSO 30 tablet 12/15/19 25 Active meloxicam (Mobic) 7.5 MG tablet TAKE 1 TABLET BY MOUTH EVERY DAY 30 tablet 06/03/19 25 2024 Discontinued Diclofenac Sodium 1 % gelIndications: Chronic pain of both knees APPLY 2 GRAMS TOPICALLY IN THE MORNING, AT NOON, IN THE EVENING AND AT BEDTIME NEEDED FOR PAIN 100 g 2 10/08/19 25 2024 Discontinued(R eorder (will not trigger notification to Pharmacy)) meclizine (Antivert) 25 MG tabletIndicatio ns:Dizziness Take 0.5 tablets (12.5 mg) by mouth if needed in the morning, at noon, and at bedtime for dizziness for up to 10 days. 30 tablet 11/05/19 25 2024 Discontinued(R eorder (will not trigger notification to Pharmacy)) Active Problems Problem Noted Date Diagnosed Date Orthostatic hypotension 10/12/2024 Assessment & Plan (10/12/2024 2:20 PM EDT): Unclear if related to adrenal insufficiency, POTS,? 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 Started on low-dose midodrine, will slowly titrate [...] related to patient's menorrhagia(she is followed by [employer]) + significant diuresis. Patient will have increase [...] this letter, she has appt with [facility] next week. I told her to reach out to contracts paralegal to help her write a letter so that housing give her some more time to get the letter from MH provider. She will res tart Effexor for anxiety and fu with me in 6m Encounters Date Type Department Care Team Description 12/13/2024 Refill [facility] MEDICINE [address] [place] [address] Marian Crook MD 11/19/2024 3:30 PM EDT Office Visit [facility] MED [facility] PEDS [address] [place], [place] [phone] Annette Mitchell CNP Dizziness; Chronic midline low back pain, unspecified whether sciatica present 11/19/2024 Travel 11/19/2024 Telephone [facility]S [address] [place] [address] Marian Crook MD chart prep 11/18/[address] [address] Annette Mitchell CNP Dizziness 11/11/2024 Results Follow-Up [address] [address] Marian Crook MD US Retroperitoneal Complete 11/08/2024 Orders Only [facility] External Provider, [facility] 11/04/2024 3:00 PM EDT Office Visit [address] [address] Annette Mitchell CNP Dizziness (Primary Dx) 11/04/2024 Travel 11/03/[address] [address] Karina Corley MA Chart Prep 11/03/[address] [address] Marian Crook MD Nurse Triage 10/28/2024 [facility] [address] [address] Stefan Meza MD 10/26/2024 2:30 PM EDT Clinical Support [address] [address] Lisa Allison RN Orthostatic hypotension [I95.1] 10/26/2024 Travel 10/12/2024 9:00 AM EDT Office Visit [address] [address] Marian Crook MD Orthostatic hypotension (Primary Dx) 10/12/2024 Travel 10/09/2024 Telephone [facility] [address] [address] Marian Crook MD Chart Prep 10/06/2024 6:20 PM EDT Office Visit [facility] WALK-IN [address] [address] Stefan Meza MD Orthostatic hypotension (Primary Dx); Dizziness; Abnormal tilt table test 10/06/2024 Travel 10/06/2024 Telephone [facility] MEDICINE [address] [place] [address] Marian Crook MD Nurse Triage 10/05/2024 Refill [facility] [address] [place] [address] Tata Fink NP Chronic pain of both knees 09/28/2024 Telephone [facility] [address] [place] [address] Marian Crook MD Results from Last 3 Months Immunizations Immunization Administration [...] Sign Reading Time Taken Comments Blood Pressure 108/68 11/19/2024 3:37 PM EDT Pulse 92 11/19/2024 3:37 PM EDT Temperature 36.2 C (97.1 F) 11/19/2024 3:37 PM EDT Respiratory Rate 14 11/19/2024 3:37 PM EDT Oxygen Saturation 97% 11/19/2024 3:37 PM EDT Inhaled Oxygen Concentration - - Weight 80.3 kg (177 lb) 11/19/2024 3:37 PM EDT Height 157.5 cm (5' 2 ) 11/19/2024 3:37 PM EDT Body Mass Index 32.37 11/19/2024 3:37 PM EDT Plan of Treatment Upcoming Encounters Date Type Department Care Team (Late st Contact Info) Description 01/03/2025 9:00 AM EDT Office Visit [facility] OPTOMETRY [address] [place], [place] [phone] Annette Navarro, OD [address] [place] [address] 01/07/2025 9:00 AM EDT Office Visit [facility] MEDICINE [address] [place] [address] Marian Crook MD [address] [place] [address] Health Maintenance Due Date Last Done Comments CT Colonography 1975 Colonoscopy 1975 FIT 1975 Sigmoidoscopy 1975 Family Planning (PISQ) 1990 Hepatitis B Vaccines (2 of 3 - 19+ 3-dose series) 11/08/2013 10/11/2013, 12/02/2008, 10/11/2008 COVID-19 Vaccine ( season) 2024 04/25/2021, 05/14/2020, 04/23/2020 Influenza Vaccine (#1) 2024 , 12/20/2018, 05/15/2017, Additional history exists Mammogram 12/04/2024 12/05/2023, 09/21, 09/29/2017 Alcohol/Substance Use Screening 01/11/2025 01/12/2024 FOBT 02/01/2025 02/02/2024 Zoster Vaccines (1 of 2) 2025 Depression [...] GLUCOSE Routine 10/06/2024 6:06 PM EDT Dizziness HPV DNA, LOW/HIGH RISK Routine 10:22 AM [...] PM EDT Narrative 11/09/2024 7:01 AM EDT [place] [address] Ultrasound Report Signed Patient: Corina Nielsen MR#: [id number] : 1975 Acct:[id number] Age/Sex: 49 / F ADM Date: 11/08/24 Loc: HO. Attending Dr: Shelly PATEL Ordering Physician: Shelly Bo Date of Service: 11/08/24 Procedure(s): US retroperitoneal comp Accession Number(s): [id number] cc: Marian Crook MD; Shelly Bo EXAMINATION: [...] Dorian Graham MD 11/09/2024 06:58 AM EDT RP Dictated By: Dorian Graham MD Signed By: <Electronically signed by Dorian Graham MD in OV> 11/09/24 0658 DD/ 1530 TD/TT: 11/08/24 1600 Contracts Paralegal: Procedure Note Donotuseinterpreter, Image - 11/09/2024 [place] [address] Ultrasound Report Signed Patient: Yarelis Nielsen#: [id number] : 1975Acct:[id number] Age/Sex: 49 / FADM Date: 11/08/24 Loc: HO.US Attending Dr: Shelly PATEL Ordering Physician: Shelly Bo Date of Service: 11/08/24 Procedure(s): US retroperitoneal comp Accession Number(s): [id number] cc: Marian Crook MD; Shelly Bo EXAMINATION: [...] 11/09/24 0658 DD/ 1530 TD/TT: 11/08/24 1600 Contracts Paralegal: [facility] External Provider IMG US PROCEDURES Edited Result - Final * POCT HGB A1C (10/06/2024 6:07 PM EDT) Hemoglobin A1C 5.5 4.0 - 5.7 % Blood 10/06/2024 6:07 PM EDT Stefan Meza MD POINT OF CARE TEST ENTER/EDIT OR DERABLES Final Result * POCT Glucose (10/06/2024 6:06 PM EDT) Glucose Blood, POC 128 60 - 200 mg/dL Blood Capillary blood specimen / Unknown 10/06/2024 6:06 PM EDT Stefan Meza MD POINT OF CARE TEST ENTER/EDIT OR DERABLES Final Result * HPV DNA, Low/High Risk (05/05/2024 10:22 AM EST) HPV High Risk Negative Negative [facility] HPV Genotype 16 Negative Negative [facility] HPV Genotype 18 Negative Negative [facility] Comment:HPV testing performe d at [facility] (CLIA#[id number]), [address] [place] [address].Testing for HPV was performed using the [employer] Blued0system. The presence of HPV in the female [...] ORDERAB LES Final Result Performing Organization Address City/State/[facility] Co de Phone Number [facility] [address] [place] [phone] * Pap Smear (05/05/2024 10:22 AM EST) 05/05/2024 10:2 2 AM EST 05/06/2024 6:10 AM EST Narrative [facility] - 05/11/2024 9:16 AM EST ----- ------- Name: Corina Nielsen Age/Sex: 49/F : 1975 Unit#: [id number] Attend Dr: Pj Posadas MD Re05/05/24 Status: DEP REF Location: [facility] Disch: ----- ------- SPEC : [id number] RECD: 05/06/24 STATUS: YESSI THERESA NUM: [id number] LAURA: 05/05/24-[address] [facility] [address]: Pj Posadas MD ENTERED: 05/06/24 [...] Received ThinPrep-Cervical Copies To: Marian Crook MD [address] [address] Pj Posadas MD [facility] [address] [place] [address] Drive [address] [place] [phone] ----- ------- Signed (signature on file) SCARLET Hernandez ([facility]) 05/11/24 0916 ----- ------- END OF REPORT Generic External Data Provider LAB CYTOLOGY ORDE RABLES Final Result Performing Organization Address [facility] Co de Phone Number [facility] [address] [place] [phone] * Hepatitis C Ab (03/27/2024 10:19 AM EST) Pathologist [facility] Hepatitis C Antibody Nonreactive Nonreactive [facility] Comment:Antibodies to HCV no t detected; does not exclude early acuteHCV infection. 03/27/2024 10:1 9 AM EST 03/27/2024 10:19 AM EST Generic External Data Provider LAB BLOOD ORDERAB LES Final Result Performing Organization Address [facility] de Phone Number [facility] [address] [place] [phone] * HIV-1/2 Antigen and Antibodies, Fourth Generation, with Reflexes (03/27/2024 10:19 AM EST) Pathologist [facility] HIV AB/AG Nonreactive Nonreactive [facility] Comment:HIV-1 p24 Ag and/or HIV-1/HIV-2 Ab not detected.A test result that is nonreactive does not exclude thepossibility of exposure to or infection with HIV-1 and/orHIV-2. Nonreactive results in this assay for individualswith prior exposure to HIV-1 and/or HIV-2 may be due toantigen and antibody levels that are below the limit ofdetection of this assay.The [employer] HIV Ag/Ab Combo assay result andsupplemental assay results should be interpreted inconjunction with the patient's clinical presentation,history and other laboratory results. If the results areinconsistent with clinical evidence, additional testing issuggested to confirm the result. 03/27/2024 10:1 9 AM EST 03/27/2024 10:19 AM EST us Generic External Data Provider LAB BLOOD ORDERAB LES Final Result [facility] [address] [place] [phone] * Cologuard?? colon cancer screening (02/02/2024 9:15 AM EST) Cologuard Result Negative Negative 02/08/20 2:05 AM EST [employer] (CLIA #:[id number]) Comment: NEGATIVE TEST RESULT. A negative Cologuard [...] (Isadora Rodriguez al, N Engl J Med 2014;370(14):5824-7724) The normal value (reference range) for this assay is negative. COLOGUARD RE-SCREENING RECOMMENDATION: Periodic colorectal cancer screening is an important part of preventive healthcare for asymptomatic individuals at average risk for colorectal cancer. Following a negative Cologuard result, the [employer] Cancer Society and U.S. Multi-Society Task Force screening guidelines recommend a Cologuard re-screening interval of 3 years. References: [employer] Society Guideline for Colorectal Cancer Screening: https://www.cancer.org/cancer/orics-hviawa-vxdlop/ysweagjqx-qynhunqaa-diiwrsy/ac s-rec ommendations.html.; Hector DK, Julio Cesar CR, Janet TroncosoK, Colorectal Cancer Screening: Recommendations for Physicians and Patients from the U.S. Multi-Society Task Force on Colorectal Cancer Screening , Am J Gastroenterology 2017; 112:2360-5382. TEST DESCRIPTION: Composite algorithmic analysis of stool [...] (Isadora Rodriguez al, N Engl J Med 2014;370(14):1894-4771.) Cologuard may produce a false negative or false positive result (no colorectal cancer or precancerous polyp present at colonoscopy follow up). A negative Cologuard test result does not guarantee the absence of CRC or advanced adenoma (pre-cancer). The current Cologuard screening interval is every 3 years. ([employer] Cancer Society and U.S. Multi-Society Task Force). Cologuard performance data in a 10,000 patient pivotal study using colonoscopy as the reference method can be accessed at the following location: www.[employer]ActBlue/results. Additional description of the Cologuard test process, warnings and precautions can be found at www.[employer].ActBlue. Stool specimen (specimen) Rectal contents / Unknown 02/02/2024 9:15 AM EST 02/03/2024 10:52 AM EST Marian Crook MD LAB MOLECULAR DIAGNOSTIC S ORDERABLES Final Result [employer] (CLIA #:[id number]) [place] [address], * BI Mammogram Screening Tomosynthesis Bilateral (12/05/2023 3:30 PM EDT) Anatomical Region Laterality Modality Breast Bilateral Mammography 12/05/2023 3:30 PM EDT Narrative 12/19/2023 8:58 AM EDT [facility] [address] [place] [address] Mammography Report Signed Patient: Corina Nielsen MR#: [id number] : 1975 Acct:[id number] Age/Sex: 48 / F ADM Date: 12/05/23 Loc: HO.MAMMO Attending Dr: Marian Crook MD Ordering Physician: Marian Crook MD Results: 1Ne gative Date of Service: 12/05/23 Follow Up: 1 Year From [facility] Mammogram Procedure(s): MM tomosynthesis screening BI Accession Number(s): [id number] cc: Marian Crook MD EXAMINATION: MM SCREENING [...] 12/19/23 0855 DD/ 1530 TD/TT: 12/05/23 1540 Contracts Paralegal: Procedure Note Donotuseinterpreter, Image - 12/19/2023 [facility] [address] [place] [address] Mammography Report Signed Patient: Yarelis Nielsen#: [id number] : 1975Acct:[id number] Age/Sex: 48 / FADM Date: 12/05/23 Loc: HO.MAMMO Attending Dr: Marian Crook MD Ordering Physician: Marian Crook MDResults: 1Ne gative Date of Service: 12/05/23Follow Up: 1 Year From Orig inal Mammogram Procedure(s): MM tomosynthesis screening BI Accession Number(s): [id number] cc: Marian Crook MD EXAMINATION: MM SCREENING [...] 12/19/23 0855 DD/ 1530 TD/TT: 12/05/23 1540 Contracts Paralegal: Marian Crook MD IMG BI PROCEDURES Final Result from Last 3 Months or Most Recently Relevant to Health Maintenance Insurance [facility] Care Teams Psychopaedic Nurse Relationship Specialty Start Date End Date Marian Crook MD [address] [place] [address], [place] [address] PCP - General Internal Medicine 10/25/24
--- OUTSIDE RECORDS SUMMARY | 2024-12-17 08:53 | XMS_ITS | Encounter Summary ---
Author Organization [employer] Address [address] [place] [address] 7 [place] [address] Care Team Providers Care Communications Equipment Operator Name Role Phone Marian Crook MD Primary Care Provider + Marian Crook MD Primary Care Provider + Reason for Visit * Reason Onset Date Comments FYI 08/03/2024 Encounter Details Date Type Department Care Team ([facility] st Contact Info) Description 08/03/2024 Telephone [facility] MEDICINE [address] [place], [place] [phone] Marian Crook MD [address] [place], [place] [phone] FYI Social History Tobacco Use Types Packs/Day [...] she has an upcoming visit with : [facility] 09/28 1pm . Should be at registration by 12:[address] [place] [address] documented in this encounter Plan of Treatment Upcoming Encounters Date Type Department Care Team ([facility] st Contact Info) Description 01/03/2025 9:00 AM EDT Office Visit [facility] OPTOMETRY [address] [place] [address] Ramon, Annette, OD [address] [place] [address] 01/07/2025 9:00 AM EDT Office Visit [facility] MEDICINE [address] [facility] [place] [address] Marian Crook MD [address] [place] [address] documented as of this encounter Visit Diagnoses Not on filedocumented in this encounter Additional Health Concerns Assessment Noted Time PHQ-9 Depression Total Score: 22 024 2:02 PM EDT documented as of this encounter Care Teams Communications Equipment Operator Relationship Specialty Start Date End Date Marian Crook MD [address] [facility] [place] [address] PCP - General Internal Medicine 09/12/23 10/24/24 Marian Crook MD [address] [place] [address] PCP - General Internal Medicine 10/25/24 documented as of this encounter
--- OUTSIDE RECORDS SUMMARY | 2024-12-17 08:53 | XMS_ITS | Encounter Summary ---
Author Organization [employer] Address [address] [facility] 7 [place] [address] Care Team Providers Care Chemical Sprayer Name Role Phone Marian Crook MD Primary Care Provider + Reason for Visit * Reason Comments Med Refill Encounter Details Date Type Department Care Team ([facility] st Contact Info) Description 12/13/2024 Refill [facility] MEDICINE [address] [place], [place] [phone] Marian Crook MD [address] [place], [place] [phone] Social History Tobacco Use Types Packs/Day Years [...] Description 01/03/2025 9:00 AM EDT Office Visit [facility] OPTOMETRY [address] [place] [address] Ramon, Annette, OD [address] [place] [address] 01/07/2025 9:00 AM EDT Office Visit [facility] MEDICINE [address] [place] [address] Marian Crook MD [address] [place] [address] documented as of this encounter Visit Diagnoses Not on filedocumented in this encounter Additional Health Concerns Assessment Noted Time PHQ-9 Depression Total Score: 13 10/12/ 025 9:26 AM EDT documented as of this encounter Care Teams Chemical Sprayer Relationship Specialty Start Date End Date Marian Crook MD [address] [place] [phone] PCP - General Internal Medicine 10/25/24 documented as of this encounter
--- OUTSIDE RECORDS SUMMARY | 2024-12-17 08:53 | XMS_ITS | Encounter Summary ---
Author Organization [employer] Address [address] [facility] 7 [place] [address] Care Team Providers Care Obstetrics Tech Name Role Phone Marian Crook MD Primary Care Provider + Reason for Visit * Reason Comments Med Refill Encounter Details Date Type Department Care Team (Late st Contact Info) Description 11/18/2024 Refill [facility] MEDICINE [address] [place] [address] Annette Mitchell, JACQUARD LOOM CARD CHANGER [address] [place] [address] Dizziness Social History Tobacco Use Types Packs/Day Years [...] Description 01/03/2025 9:00 AM EDT Office Visit [facility] OPTOMETRY [address] [place] [address] Ramon, Annette, OD [address] [place] [address] 01/07/2025 9:00 AM EDT Office Visit [facility] MEDICINE [address] [place] [address] Marian Crook MD [address] [place] [address] documented as of this encounter Visit Diagnoses Diagnosis Dizziness Dizziness and giddiness documented in this encounter Additional Health Concerns Assessment Noted Time PHQ-9 Depression Total Score: 13 10/12/ 025 9:26 AM EDT documented as of this encounter Care Teams Obstetrics Tech Relationship Specialty Start Date End Date Marian Crook MD [address] [place] [phone] PCP - General Internal Medicine 10/25/24 documented as of this encounter
--- OUTSIDE RECORDS SUMMARY | 2024-12-17 08:53 | XMS_ITS | Encounter Summary ---
Author Organization [employer] Address [address] [place] [address] 7 [place] [address] Care Team Providers Care Senior Account Representative Name Role Phone Marian Crook MD Primary Care Provider + Marian Crook MD Primary Care Provider + Reason for Visit * Reason Onset Date Comments Med Refill 03/25/2024 Encounter Details Date Type Department Care Team (Late st Contact Info) Description 03/25/2024 Refill [facility] MEDICINE [address] [place], [place] [phone] Claritza Leonard DO [address] [place], [place] [phone] Social History Tobacco Use Types Packs/Day Years [...] Description 01/03/2025 9:00 AM EDT Office Visit [facility] OPTOMETRY [address] [place] [address] Ramon, Annette, OD [address] [place] [address] 01/07/2025 9:00 AM EDT Office Visit [facility] MEDICINE [address] [place] [address] Marian Crook MD [address] [place] [address] documented as of this encounter Visit Diagnoses Not on filedocumented in this encounter Additional Health Concerns Assessment Noted Time PHQ-9 Depression Total Score: 22 024 2:02 PM EDT documented as of this encounter Care Teams Senior Account Representative Relationship Specialty Start Date End Date Marian Crook MD [address] [place] [address] PCP - General Internal Medicine 09/12/23 10/24/24 Marian Crook MD [address] [place] [address] PCP - General Internal Medicine 10/25/24 documented as of this encounter
--- OUTSIDE RECORDS SUMMARY | 2024-12-17 08:53 | XMS_ITS | Encounter Summary ---
Author Organization [employer] Address [address] [facility] 7 [place] [address] Care Team Providers Care Insurance Marketing Rep Name Role Phone Marian Crook MD Primary Care Provider + Marian Crook MD Primary Care Provider + Reason for Visit * Reason Onset Date Comments Med Refill 03/25/2024 Encounter Details Date Type Department Care Team (Late st Contact Info) Description 03/25/2024 Refill [facility] MEDICINE [address] [place], [place] [phone] Marian Crook MD [address] [place], [place] [phone] Moderate persistent asthma without complication Social History [...] Description 01/03/2025 9:00 AM EDT Office Visit [facility] OPTOMETRY [address] [place] [address] Annette Navarro, OD [address] [place] [address] 01/07/2025 9:00 AM EDT Office Visit [facility] MEDICINE [address] [place] [address] Marian Crook MD [address] [place] [address] documented as of this encounter Visit Diagnoses Diagnosis Moderate persistent asthma without complication documented in this encounter Additional Health Concerns Assessment Noted Time PHQ-9 Depression Total Score: 22 024 2:02 PM EDT documented as of this encounter Care Teams Insurance Marketing Rep Relationship Specialty Start Date End Date Marian Crook MD [address] [place] [address] PCP - General Internal Medicine 09/12/23 10/24/24 Marian Crook MD [address] [place] [address] PCP - General Internal Medicine 10/25/24 documented as of this encounter
--- OUTSIDE RECORDS SUMMARY | 2024-12-17 08:53 | XMS_ITS | Encounter Summary ---
Author Organization [employer] Address [address] [place] [address] [place], [place] [address] Care Team Providers Care Hypo Dipper Name Role Phone Marian Crook MD Primary Care Provider + Marian Crook MD Primary Care Provider + Reason for Visit * Reason Comments Med Refill Encounter Details Date Type Department Care Team (Late Contact Info) Description 11/27/2023 Refill [facility] MEDICINE 230 [place] [address] Marian Crook MD 230 [place], [place] [phone] Social History Tobacco Use Types Packs/Day Years [...] Department Care Team (Late Contact Info) Description 01/03/2025 9:00 AM EDT Office Visit [facility] OPTOMETRY [address] [place], [place] [phone] Annette Navarro, OD 230 [place], [place] [phone] 01/07/2025 9:00 AM EDT Office Visit [facility] MEDICINE 230 [place], [place] [phone] Marian Crook MD 230 [place], [place] [phone] documented as of this encounter Visit Diagnoses Not on filedocumented in this encounter Additional Health Concerns Assessment Noted Time PHQ-9 Depression Total Score: 16 06/18/ 023 3:25 PM EDT documented as of this encounter Care Teams Hypo Dipper Relationship Specialty Start Date End Date Marian Crook MD [address] [place] [address] PCP - General Internal Medicine 09/12/23 10/24/24 Marian Crook MD [address] [place] [address] PCP - General Internal Medicine 10/25/24 documented as of this encounter
--- OUTSIDE RECORDS SUMMARY | 2024-12-17 08:53 | XMS_ITS | Encounter Summary ---
Author Organization [employer] Address [address] [place] [address] 7 [place] [address] Care Team Providers Care Air Vice Marshal Name Role Phone Marian Crook MD Primary Care Provider + Marian Crook MD Primary Care Provider + Reason for Visit * Reason Onset Date Comments Med Refill 03/25/2024 Encounter Details Date Type Department Care Team (Late st Contact Info) Description 03/25/2024 Refill [facility] MEDICINE 230 [place], [place] [phone] Marian Crook MD 230 [place], [place] [phone] Social History Tobacco Use Types Packs/Day Years [...] Description 01/03/2025 9:00 AM EDT Office Visit [facility] OPTOMETRY [address] [place] [address] Ramon, Annette, OD 230 [place] [address] 01/07/2025 9:00 AM EDT Office Visit [facility] MEDICINE 230 [place] [address] Marian Crook MD 230 [place] [address] documented as of this encounter Visit Diagnoses Not on filedocumented in this encounter Additional Health Concerns Assessment Noted Time PHQ-9 Depression Total Score: 22 024 2:02 PM EDT documented as of this encounter Care Teams Air Vice Marshal Relationship Specialty Start Date End Date Marian Crook MD 230 [place] [address] PCP - General Internal Medicine 09/12/23 10/24/24 Marian Crook MD 230 [place] [address] PCP - General Internal Medicine 10/25/24 documented as of this encounter
--- OUTSIDE RECORDS SUMMARY | 2024-12-17 08:53 | XMS_ITS | Encounter Summary ---
Author Organization [employer] Address [address] [place] [address] 7 [place] [address] Care Team Providers Care Deicer Repairer Name Role Phone Miladys [facility] Primary Care Provider [phone] Marian Crook MD Primary Care Provider + Marian Crook MD Primary Care Provider + Encounter Details Date Type Department Care Team (Late Contact Info) Description 04/03/2023 Abstract [facility] MEDICINE 230 [place] [address] [place] [facility] [address] [place], [place] [phone] Social History Tobacco Use Types Packs/Day Years [...] 9:00 AM EDT Office Visit [facility] OPTOMETRY [address] [place] [address] Annette Navarro, OD 230 [place] [address] 01/07/2025 9:00 AM EDT Office Visit [facility] MEDICINE 230 [place] [address] Marian Crook MD [address] [place], [place] [phone] documented as of this encounter Visit Diagnoses Not on filedocumented in this encounter Additional Health Concerns Assessment Noted Time PHQ-9 Depression Total Score: 16 06/18/ 023 3:25 PM EDT documented as of this encounter Care Teams Deicer Repairer Relationship Specialty Start Date End Date MiladysAlisha nava FNP [address] [place] [address] PCP - General Family Medicine 11/14/21 09/11/23 Marian Crook MD [address] [place] [address] PCP - General Internal Medicine 09/12/23 10/24/24 Marian Crook MD [address] [place] [address] PCP - General Internal Medicine 10/25/24 documented as of this encounter
--- OUTSIDE RECORDS SUMMARY | 2024-12-17 08:53 | XMS_ITS | Encounter Summary ---
Author Organization [employer] Address [address] [place] [address] 7 [place] [address] Care Team Providers Care Emergency Room Nurse Name Role Phone Alisha Hook Primary Care Provider [phone] Marian Crook MD Primary Care Provider + Marian Crook MD Primary Care Provider + Reason for Visit * Reason Onset Date Comments Nurse Triage 11/18/2022 Encounter Details Date Type Department Care Team (Late st Contact Info) Description 11/18/2022 Telephone [facility] MEDICINE 230 [place], [place] [phone] MiladysAlisha [facility] 230 [place], [place] [phone] Nurse Triage Social History Tobacco Use Types [...] Description 01/03/2025 9:00 AM EDT Office Visit [facility] OPTOMETRY [address] [place] [address] Ramon, Annette, OD 230 [place] [address] 01/07/2025 9:00 AM EDT Office Visit [facility] MEDICINE 230 [place] [address] Marian Crook MD 230 [place] [address] documented as of this encounter Visit Diagnoses Not on filedocumented in this encounter Additional Health Concerns Assessment Noted Time PHQ-9 Depression Total Score: 16 023 3:25 PM EDT documented as of this encounter Care Teams Emergency Room Nurse Relationship Specialty Start Date End Date Alisha Hook FNP 230 [place] [address] PCP - General Family Medicine 11/14/21 09/11/23 Marian Crook MD 230 [place] [address] PCP - General Internal Medicine 09/12/23 10/24/24 Marian Crook MD 230 [place] [address] PCP - General Internal Medicine 10/25/24 documented as of this encounter
== END 2024-12-17 09:04 | disposition home or self-care (01) ==
LOC: HO.ENCR 08:33
PROVIDERS: PCP Internal Medicine; Visit Provider Student in an Organized Health Care Education/Training Program
DX: I95.1 Orthostatic hypotension (principal)
CPT/HCPCS: 99204

== ENCOUNTER → 2024-12-17 08:32 | Outpatient (BNVA) | payer OTHER, SELFPAY | PROVIDERS: PCP Internal Medicine; Visit Provider Student in an Organized Health Care Education/Training Program | DX: I95.1 Orthostatic hypotension (principal) | CPT/HCPCS: 99202 ==

== ENCOUNTER 2025-01-20 14:51 | Emergency (ER) | payer OTHER, SELFPAY ==
--- NOTE | ~2025-01-20 | XR_ITS ---
EXAMINATION: XR ANKLE, RIGHT CLINICAL INFORMATION: pain COMPARISON: None available. TECHNIQUE: AP, lateral, and mortise views of the right ankle. FINDINGS: No fracture. Alignment is anatomic. No erosions. Joint spaces are maintained. Small calcaneal spurs. Soft tissues are otherwise normal. XR/XR ankle RT min 3V IMPRESSION: No fracture or dislocation. Small calcaneal spurs. Electronically signed by: Diane Pichardo MD 01/20/2025 03:39 PM EDT
--- NOTE | ~2025-01-20 | US_ITS ---
CLINICAL HISTORY: Rigght calf pain. DVT? Venous duplex ultrasound right lower extremity Comparison: None provided Findings: The visualized deep veins are fully compressible with normal Doppler color flow and spectral tracings. No popliteal cyst. IMPRESSION: 1. Negative for right lower extremity deep vein thrombosis. This document has been electronically signed by: Jia Mandujano MD on 01/20/2025 18:35:12
--- NOTE | ~2025-01-20 | XR_ITS ---
EXAMINATION: XR FOOT, RIGHT CLINICAL INFORMATION: pain COMPARISON: None available. TECHNIQUE: AP, lateral, and oblique views of the right foot. FINDINGS: Bone alignment is normal. No fracture or dislocation. Normal joint spaces. Small calcaneal spurs. Soft tissues otherwise normal. XR/XR foot RT min 3V IMPRESSION: Normal right foot. Electronically signed by: Diane Pichardo MD 01/20/2025 03:39 PM EDT
[2025-01-20 15:09] VITALS: BP 121/73; PULSE 78; RESP 16; TEMP 36.6; O2SAT 95; BMI 31.0
--- NOTE | 2025-01-20 15:15 | ED_ITS ---
HPI - General Adult General Chief complaint: Extremity Problem Stated complaint: r foot warm and painful Time Seen by Provider: 01/20/25 18:24 Related Data Home Medications ?Medication ?Instructions ?Recorded ?Confirmed albuterol sulfate 2.5 mg/3 mL 1 vial inhalation Q4H GA N 02/01/22 12/17/24 (0.083 %) solution for nebulization Shortness Of Breat h cholecalciferol (vitamin D3) 50 50 mcg PO DAILY 12/17/24 mcg (2,000 unit) tablet (Vitamin D3) lidocaine 5 % topical patch 1 patch topical DAILY 06/1512/17/24 midodrine 2.5 mg tablet 2.5 mg PO TID 10/21/2412/17 meclizine 25 mg tablet 25 mg PO BID PRN 12/17/24 Previous Rx's ?Medication ?Instructions ?Recorded omeprazole 20 mg capsule,delayed 20 mg PO DAILY #90 ca ps 12/14/24 release naproxen 500 mg tablet 500 mg PO BID PRN pain #14 t abs 01/20/25 prednisone 20 mg tablet 40 mg (2 x 20 mg) PO DAILY 5 days 01/20/25 #10 tabs Allergies Allergy/AdvReac Type Severity Reaction Status Date / Time No Known Allergies (No Known Allergy Verified 01/20/25 15:11 Allergies*) [facility] Past Medical History Medical History (Updated 01/20/25 @ 19:02 by RAJIV Carmona) Hypotension delivery delivered Depression Anal fissure Hemorrhoids Chronic RLQ pain Polyuria Dizziness FILIBERTO (obstructive sleep apnea) Moderate persistent asthma in adult without complication Chronic low back pain Iron deficiency Arthritis History of asthma Surgical History Hx of colonoscopy History of esophagogastroduodenoscopy (EGD) S/P laparoscopic sleeve gastrectomy H/O abdominoplasty Family History Family History Mother History of hypertension Arthritis Glaucoma Father Heart problem History of hypertension Brother Heart problem History of hypertension Sister History of hypertension Brother No problems noted. Brother No problems noted. Brother No problems noted. Brother No problems noted. Sister Ovarian cancer Sister No problems noted. Sister No problems noted. 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 patient states recent long travel or surgery. patient states no chest pain or shorntes of breath. Ultrasound nad xray orderd Medical Decision Making Medical Decision Making MDM Narrative: 49 yold female presents to the ED presents to the ED for right foot pain radiating to right calf since friday. Patient denies any recent trauma, swelling, fever, chills, bluish black discoloration, red streaks, open wounds, pus discharge, or foul odor. Physical exam negative for signs of arterial occlusion, compartment syndrome, septic joint, lymphangitis, DVT, osteomyelitis, or any other life-threatening etiology. X-ray labs ultrasound came back reassuring. X-ray shows calcaneal spurs. Patient referred to follow up with Podiatry. Patient discharged with pain medication. Differential Diagnosis Differential Diagnoses: The differential diagnosis associated with the presentation includes (Fracture, dislocation, DVT) Admission/Observation Consideration of admission/observation: Escalation of care including admission/observation considered Lab Data [facility] Lab Attestation statement: I reviewed the patient's lab results. 01/20/25 15:19 01/20/25 15:19 Labs: Lab Results 01/20/25 Range/Units 15:19 WBC 7.1 (4.8-10.8) X10*3/uL RBC 4.23 (4.20-5.50) X10*6/uL Hgb 13.0 (12.0-16.0) g/dl Hct 39.5 (37.0-47.0) % MCV 93.4 (80.0-98.0) fL MCH 30.7 (27.0-33.0) pg MCHC 32.9 (31.0-35.0) g/dl RDW 12.5 (11.0-16.0) % Plt Count 247 (160-400) X10*3/uL MPV 10.6 (9.4-12.3) fL Immature Gran % (Auto) 0.3 (0.0-0.4) % Neut % (Auto) 63.7 (45-73) % Lymph % (Auto) 25.2 (20-40) % [place] % (Auto) 6.3 (2-11) % Eos % (Auto) 3.9 (0-4) % Baso % (Auto) 0.6 (0-2) % Lymph # (Auto) 1.8 (1.2-4.9) X10*3/uL [place] # (Auto) 0.5 (0.1-1.2) X10*3/uL Eos # (Auto) 0.3 (0.0-0.4) X10*3/uL Baso # (Auto) 0.0 (0.0-0.2) X10*3/uL Abs Immat Gran (auto) 0.02 (0.00-0.03) X10*3/uL Absolute Neuts (auto) 4.5 (2.0-8.3) x10*3/uL Absolute Nucleated RBC 0.000 (0.0-0.012) X10*3/uL Nucleated RBC % (auto) 0.0 (0.0-0.2) /100WBC PT 11.9 (10.9-12.4) SEC INR 1.0 (0.9-1.1) APTT 30.6 (26.7-34.1) SEC Sodium 141 (135-145) mmol/L Potassium 4.1 (3.3-5.1) mmol/L Chloride 110 H (96-108) mmol/L Carbon Dioxide 27 (22-29) mmol/L Anion Gap 8 L (12-20) BUN 16 (9-16) mg/dL Creatinine 0.91 (0.5-1.4) mg/dL Estim Creat Clear Calc 74.5 Estimated GFR > 60 Random Glucose 91 (60-115) mg/dL Calcium 8.9 (8.4-10.2) mg/dL Total Bilirubin 0.2 (0.0-1.0) mg/dL AST 25 (5-31) U/L ALT 18 (0-31) U/L Alkaline Phosphatase 69 (39-117) U/L Total Protein 7.2 (6.5-8.0) g/dL Albumin 4.3 (3.5-5.0) g/dL Independent Interpretation I performed an independent interpretation of an: Plain X-Ray and Ultrasound Radiology Impression Discussion of test interpretation with radiology: I have reviewed the radiologist's reading. Independent Historian Clinical information obtained from an independent historian. History obtained from or confirmed by: Other (patient) Prescription Management I considered prescription management with: Pain Medication Discharge Plan Discharge Clinical Impression: Heel spur Patient Disposition: Home, Self-Care Instructions: Heel Spur (ED) Additional Instructions: Recommend follow-up with primary care provider and Podiatry. Return to the ED immediately for any swelling, redness, bluish black discoloration, red streaks, pus discharge, foul odor, fever, chills, calf pain, chest pain, shortness of breath, or any other concerning symptoms. Ordering Physician: Devin Shah Date of Service: 01/20/25 Procedure(s): XR foot RT min 3V Accession Number(s): [id number] cc: Devin Shah; Marian Crook MD~ Reason for Exam: pain EXAMINATION: XR FOOT, RIGHT CLINICAL INFORMATION: pain COMPARISON: None available. TECHNIQUE: AP, lateral, and oblique views of the right foot. FINDINGS: Bone alignment is normal. No fracture or dislocation. Normal joint spaces. Small calcaneal spurs. Soft tissues otherwise normal. XR/XR foot RT min 3V IMPRESSION: Normal right foot. Electronically signed by: Diane Pichardo MD 01/20/2025 03:39 PM EDT [address] [address] Ultrasound Report Signed Patient: Corina Nielsen MR#: [id number] : 1975 Acct:[id number] Age/Sex: 49 / F ADM Date: 01/20/25 Loc: HO.ED Attending Dr: Ordering Physician: Devin Shah Date of Service: 01/20/25 Procedure(s): US venous duplex LE RT Accession Number(s): [id number] cc: Devin Shah; Marian Crook MD~ Reason for Exam: Rigght calf pain. DVT? CLINICAL HISTORY: Rigght calf pain. DVT? Venous duplex ultrasound right lower extremity Comparison: None provided Findings: The visualized deep veins are fully compressible with normal Doppler color flow and spectral tracings. No popliteal cyst. IMPRESSION: 1. Negative for right lower extremity deep vein thrombosis. This document has been electronically signed by: Jia Mandujano MD on 01/20/2025 18:35:12 Dictated By: Jia Mandujano MD Signed By: <Electronically signed by Jia Mandujano MD in OV> 01/20/25 183 Ordering Physician: Devin Shah Date of Service: 01/20/25 Procedure(s): XR ankle RT min 3V Accession Number(s): [id number] cc: Devin Shah; Marian Crook MD~ Reason for Exam: pain EXAMINATION: XR ANKLE, RIGHT CLINICAL INFORMATION: pain COMPARISON: None available. TECHNIQUE: AP, lateral, and mortise views of the right ankle. FINDINGS: No fracture. Alignment is anatomic. No erosions. Joint spaces are maintained. Small calcaneal spurs. Soft tissues are otherwise normal. XR/XR ankle RT min 3V IMPRESSION: No fracture or dislocation. Small calcaneal spurs. Electronically signed by: Diane Pichardo MD 01/20/2025 03:39 PM EDT Prescriptions: New naproxen 500 mg tablet 500 mg PO BID PRN (Reason: pain) Qty: 14 0RF prednisone 20 mg tablet 40 mg PO DAILY 5 Days Qty: 10 0RF No Action omeprazole 20 mg capsule,delayed release(DR/EC) 20 mg PO DAILY Qty: 90 0RF albuterol sulfate 2.5 mg /3 mL (0.083 %) solution for nebulization 1 vial inhalation Q4H PRN (Reason: Shortness Of Breath) lidocaine 5 % adhesive patch,medicated 1 patch topical DAILY midodrine 2.5 mg tablet 2.5 mg PO TID Rx Instructions: do not give last dose of day after 6PM or within 4 hrs of bedtime meclizine 25 mg tablet 25 mg PO BID PRN cholecalciferol (vitamin D3) [Vitamin D3] 50 mcg (2,000 unit) tablet 50 mcg PO DAILY [place] [facility] [place]Provider Group, Podiatry] - 2 days Referral Note: Heel spur versus plantar fasciitis Clinical Impression: Heel spur Stand Alone Forms: Work/School Release Print Language: Guinean
[2025-01-20 15:24] LABS: MANUAL DIFF FLAG NO
[2025-01-20 15:28] LABS: Hematocrit 39.5 % (37.0-47.0); Hemoglobin 13.0 g/dl (12.0-16.0); Imm Gran Abs Auto 0.02 X10*3/uL (0.00-0.03); Imm Gran Pct Auto 0.3 % (0.0-0.4); Lymphocytes Absolute Auto 1.8 X10*3/uL (1.2-4.9); Mean Corpuscular HGB Conc 32.9 g/dl (31.0-35.0); Mean Corpuscular Hemoglobin 30.7 pg (27.0-33.0); Mean Corpuscular Volume 93.4 fL (80.0-98.0); NRBC Abs Auto 0.000 X10*3/uL (0.0-0.012); NRBC Pct Auto 0.0 /100WBC (0.0-0.2); Platelet Count 247 X10*3/uL (160-400); Red Blood Count 4.23 X10*6/uL (4.20-5.50); White Blood Count 7.1 X10*3/uL (4.8-10.8)
[2025-01-20 15:35] LABS: INTERNATIONAL NORM RATIO 1.0 (0.9-1.1); Prothrombin Time 11.9 SEC (10.9-12.4)
[2025-01-20 15:37] LABS: Partial Thromboplastin Time 30.6 SEC (26.7-34.1)
[2025-01-20 15:40] LABS: Alanine Aminotransferase 18 U/L (0-31); Albumin Level 4.3 g/dL (3.5-5.0); Alkaline Phosphatase 69 U/L (39-117); Anion Gap 8 (12-20); Aspartate Amino Transferase 25 U/L (5-31); Blood Urea Nitrogen 16 mg/dL (9-16); Calcium 8.9 mg/dL (8.4-10.2); Carbon Dioxide 27 mmol/L (22-29); Chloride 110 mmol/L (96-108); Creatinine Clr Calc Pharmacy 74.5; Estimated Glomerular Filt Rate > 60; Potassium 4.1 mmol/L (3.3-5.1); Sodium 141 mmol/L (135-145); Total Protein 7.2 g/dL (6.5-8.0)
[2025-01-20 18:30] VITALS: BP 97/54; PULSE 71; RESP 16; TEMP 37; O2SAT 93
--- OUTSIDE RECORDS SUMMARY | 2025-01-20 18:57 | XMS_ITS | Encounter Summary ---
Author Organization [employer] Address [address] [place] [address] 7 [place] [address] Care Team Providers Care Silverware Etcher Name Role Phone Marian Crook MD Primary Care Provider + Marian Crook MD Primary Care Provider + Reason for Visit * Reason Comments Med Change Request Encounter Details Date Type Department Care Team ([facility] st Contact Info) Description 06/17/2024 Refill [facility] MEDICINE 230 [place], [place] [phone] Marian Crook MD 230 [place], [place] [phone] Social History Tobacco Use Types Packs/Day Years [...] documented as of this encounter Care Teams Silverware Etcher Relationship Specialty Start Date End Date Marian Crook MD [address] [place] [address] PCP - General Internal Medicine 09/12/23 10/24/24 Marian Crook MD [address] [place] [address] PCP - General Internal Medicine 10/25/24 documented as of this encounter
--- OUTSIDE RECORDS SUMMARY | 2025-01-20 18:57 | XMS_ITS | Encounter Summary ---
Author Organization [employer] Address [address] [facility] 7 [place] [address] Care Team Providers Care Staff Accountant Name Role Phone Marian Crook MD Primary Care Provider + Reason for Visit * Reason Onset Date Comments Nurse Triage 01/20/2025 Encounter Details Date Type Department Care Team ([facility] st Contact Info) Description 01/20/2025 Telephone [facility] MEDICINE 230 [place], [place] [phone] Marian Crook MD 230 [place], [place] [phone] Nurse Triage Social History Tobacco Use Types [...] encounter Miscellaneous Notes * Telephone Encounter - Meseret Jones RN - 01/20/2025 10:47 AM EDT T/C returned to pt to triage. Pt reports left leg from foot to half way up her leg is hot to the touch, red, and painful since yesterday. Pt reports pain is worsening. She used pain patches and lidocaine cream on it last night without relief. She has tried elevating it without relief. She reports that it is her entire lower leg that is red. Pt denies fever or weeping. Very difficult to walk d/t pain. Pt denies known injury or open area of skin, has never had this happen before. Pt advised to goto the ED to r/o DVT or cellulitis. Pt states will go to [facility] ED in ~2hrs as she is currently at work. Informed I will have team nurses check up on her. Pt agreeable. Protocol Used: Leg Pain (Adult) Protocol-Based Disposition: Go to Office or Video Visit Now Video visit offer not recorded Positive Triage Questions: * Thigh or calf pain in only one leg and present > 1 hour * Thigh, calf, or ankle swelling in only one leg * Red area or streak > 2 inches (or 5 cm) * All higher-acuity triage questions were negative Care Advice Discussed: * Reasons To Call Back - Signs of infection occur (such as spreading redness, warmth, fever) - You become worse * Telephone Encounter - Heather Lyons - 01/20/2025 10:03 AM EDT Symptom: Leg Swelling - Not From Injury Outcome: Schedule an urgent appointment (within 1 hour) or talk to a nurse or provider soon Reason: Severe leg pain now The caller accepted this outcome. Contact pt at [phone] (malay) documented in this encounter Plan of Treatment Not on file documented as of this encounter Visit Diagnoses Not on filedocumented in this encounter Additional Health Concerns Assessment Noted Time PHQ-9 Depression Total Score: 13 025 9:26 AM EDT documented as of this encounter Care Teams Staff Accountant Relationship Specialty Start Date End Date Marian Crook MD [address] [place] [address] PCP - General Internal Medicine 10/25/24 documented as of this encounter
--- OUTSIDE RECORDS SUMMARY | 2025-01-20 18:57 | XMS_ITS | Encounter Summary ---
Author Organization [employer] Address [address] [facility] 7 [place] [address] Care Team Providers Care Brick Handler Name Role Phone Marian Crook MD Primary Care Provider + Reason for Visit * Reason Comments Med Refill Encounter Details Date Type Department Care Team ([facility] st Contact Info) Description 01/19/2025 Refill [facility] MEDICINE 230 [place], [place] [phone] Marian Crook MD 230 [place], [place] [phone] Social History Tobacco Use Types Packs/Day Years [...] documented as of this encounter Care Teams Brick Handler Relationship Specialty Start Date End Date Marian Crook MD [address] [place] [address] PCP - General Internal Medicine 10/25/24 documented as of this encounter
--- OUTSIDE RECORDS SUMMARY | 2025-01-20 18:57 | XMS_ITS | Encounter Summary ---
Author Organization [employer] Address [address] [facility] 7 [place] [address] Care Team Providers Care Dried Fruit Washer Name Role Phone Marian Crook MD Primary Care Provider + Reason for Visit * Reason Comments Med Refill Encounter Details Date Type Department Care Team ([facility] st Contact Info) Description 01/20/2025 Refill [facility] MEDICINE 230 [place], [place] [phone] Marian Crook MD 230 [place], [place] [phone] Social History Tobacco Use Types Packs/Day Years [...] documented as of this encounter Care Teams Dried Fruit Washer Relationship Specialty Start Date End Date Marian Crook MD [address] [place] [address] PCP - General Internal Medicine 10/25/24 documented as of this encounter
--- OUTSIDE RECORDS SUMMARY | 2025-01-20 18:57 | XMS_ITS | Encounter Summary ---
Author Organization [employer] Address [address] [place] [address] 7 [place] [address] Care Team Providers Care Pulp House Supervisor Name Role Phone Marian Crook MD Primary Care Provider + Marian Crook MD Primary Care Provider + Reason for Visit * Reason Onset Date Comments Med Refill 03/25/2024 Encounter Details Date Type Department Care Team (Late st Contact Info) Description 03/25/2024 Refill [facility] MEDICINE 230 [place], [place] [phone] Clraitza Leonard DO 230 [place], [place] [phone] Social History Tobacco Use Types Packs/Day Years [...] documented as of this encounter Care Teams Pulp House Supervisor Relationship Specialty Start Date End Date Marian Crook MD [address] [place] [address] PCP - General Internal Medicine 09/12/23 10/24/24 Marian Crook MD 230 [place] [address] PCP - General Internal Medicine 10/25/24 documented as of this encounter
--- OUTSIDE RECORDS SUMMARY | 2025-01-20 18:57 | XMS_ITS | Encounter Summary ---
Author Organization [employer] Address [address] [place] [address] 7 [place] [address] Care Team Providers Care Dental Office Assistant Name Role Phone Miladys Alisha RESOURCE TECHNICIAN Primary Care Provider [phone] Marian Crook MD Primary Care Provider + Marian Crook MD Primary Care Provider + Encounter Details Date Type Department Care Team (Late st Contact Info) Description 04/03/2023 Abstract [facility] MEDICINE 230 [place] [address] [place] Alisha [facility] 230 [place], [place] [phone] Social History Tobacco Use Types Packs/Day Years [...] as of this encounter Care Teams Dental Office Assistant Relationship Specialty Start Date End Date Alisha Hook FNP 230 [place] [address] PCP - General Family Medicine 11/14/21 09/11/23 Marian Crook MD [address] [place] [address] PCP - General Internal Medicine 09/12/23 10/24/24 Marian Crook MD [address] [place] [address] PCP - General Internal Medicine 10/25/24 documented as of this encounter
--- OUTSIDE RECORDS SUMMARY | 2025-01-20 18:57 | XMS_ITS | Encounter Summary ---
Author Organization [employer] Address [address] [place] [address] 7 [place] [address] Care Team Providers Care Customer Liaison Name Role Phone Marian Crook MD Primary Care Provider + Marian Crook MD Primary Care Provider + Reason for Visit * Reason Comments Med Refill Encounter Details Date Type Department Care Team (Late st Contact Info) Description 11/27/2023 Refill [facility] MEDICINE 230 [place] [address] Marian Crook MD 230 [place], [place] [phone] Social History Tobacco Use Types Packs/Day Years [...] as of this encounter Care Teams Customer Liaison Relationship Specialty Start Date End Date Marian Crook MD 230 [place] [address] PCP - General Internal Medicine 09/12/23 10/24/24 Marian Crook MD [address] [place] [address] PCP - General Internal Medicine 10/25/24 documented as of this encounter
--- OUTSIDE RECORDS SUMMARY | 2025-01-20 18:57 | XMS_ITS | Encounter Summary ---
Author Organization [employer] Address [address] [facility] 7 [place] [address] Care Team Providers Care Drum Plater Name Role Phone Marian Crook MD Primary Care Provider + Marian Crook MD Primary Care Provider + Reason for Visit * Reason Onset Date Comments Med Refill 03/25/2024 Encounter Details Date Type Department Care Team (Late st Contact Info) Description 03/25/2024 Refill [facility] [address] [place], [place] [phone] Marian Crook MD [address] [place], [place] [phone] Moderate persistent asthma without complication Social History [...] as of this encounter Care Teams Drum Plater Relationship Specialty Start Date End Date Marian Crook MD [address] [place] [address] PCP - General Internal Medicine 09/12/23 10/24/24 Marian Crook MD [address] [place] [address] PCP - General Internal Medicine 10/25/24 documented as of this encounter
--- OUTSIDE RECORDS SUMMARY | 2025-01-20 18:57 | XMS_ITS | Encounter Summary ---
Author Organization [employer] Address [address] [place] [address] [address] [place] [address] Care Team Providers Care Certified Recreational Therapist Name Role Phone Alisha Hook Primary Care Provider Marian Crook MD Primary Care Provider + Marian Crook MD Primary Care Provider + Reason for Visit * Reason Onset Date Comments Nurse Triage 11/18/2022 Encounter Details Date Type Department Care Team (Late st Contact Info) Description 11/18/2022 Telephone [facility] [address] [place], [place] [phone] [facility] [address] [place], [place] [phone] Nurse Triage Social History Tobacco Use Types [...] as of this encounter Care Teams Certified Recreational Therapist Relationship Specialty Start Date End Date [facility] [address] [place] [address] PCP - General Family Medicine 11/14/21 09/11/23 Marian Crook MD [address] [place] [address] PCP - General Internal Medicine 09/12/23 10/24/24 Marian Crook MD [address] [place] [id number] PCP - General Internal Medicine 10/25/24 documented as of this encounter
--- OUTSIDE RECORDS SUMMARY | 2025-01-20 18:57 | XMS_ITS | Encounter Summary ---
Author Organization [employer] Address [address] [place] [address] 7 [place] [address] Care Team Providers Care Speed Runner Name Role Phone Marian Crook MD Primary Care Provider + Marian Crook MD Primary Care Provider + Reason for Visit * Reason Onset Date Comments Med Refill 03/25/2024 Encounter Details Date Type Department Care Team (Late st Contact Info) Description 03/25/2024 Refill [facility] [address] [place], [place] [phone] Claritza Leonard DO [address] [place], [place] [phone] Social History Tobacco Use Types Packs/Day Years [...] documented as of this encounter Care Teams Speed Runner Relationship Specialty Start Date End Date Marian Crook MD [address] [place] [phone] PCP - General Internal Medicine 09/12/23 10/24/24 Marian Crook MD [address] [place] [address] PCP - General Internal Medicine 10/25/24 documented as of this encounter
--- OUTSIDE RECORDS SUMMARY | 2025-01-20 18:57 | XMS_ITS | Encounter Summary ---
Author Organization [employer] Address [address] [place] [address] 7 [place] [address] Care Team Providers Care Ed Teacher Name Role Phone Marian Crook MD Primary Care Provider + Marian Crook MD Primary Care Provider + Reason for Visit * Reason Onset Date Comments Med Refill 03/25/2024 Encounter Details Date Type Department Care Team (Late st Contact Info) Description 03/25/2024 Refill [facility] [address] [place], [place] [phone] Marian Crook MD [address] [place], [place] [phone] Social History Tobacco Use Types Packs/Day Years [...] documented as of this encounter Care Teams Ed Teacher Relationship Specialty Start Date End Date Marian Crook MD [address] [place] [id number] PCP - General Internal Medicine 09/12/23 10/24/24 Marian Crook MD [address] [place] [address] PCP - General Internal Medicine 10/25/24 documented as of this encounter
--- OUTSIDE RECORDS SUMMARY | 2025-01-20 18:57 | XMS_ITS | Clinical Summary ---
Author Organization [employer] Address [address] [place] [address] [address] [place] [address] Care Team Providers Care Recovery Specialist Name Role Phone Marian Crook MD Primary Care Provider + Allergies No known active allergies Medications Vaginal Lubricant (Replens) gelIndications: Vaginal dryness Insert 2 g into the vagina if needed (vaginal dryness). 35 g 1 12/07/19 23 Active Additional Information Patient not taking.Reported on 01/07/2025 Omeprazole 20 MG tablet delayed-release Indications:Lennox n of right hip Take 20 mg by mouth in the morning for 14 days. 14 tablet 02/29/20 23 Active nitroglycerin (Rectiv) 0.4 % (w/w) rectal ointmentIndicat ions:Anal fissure Insert 1 inch (1 Application.) into the rectum every 12 (twelve) hours. 30 g 12/23/19 24 Active Additional Information Patient not taking.Reported on 01/07/2025 cetirizine (ZyrTEC) 10 MG tablet TAKE 1 TABLET BY MOUTH EVERY DAY 90 tablet 06/08/19 25 Active acetaminophen (Tylenol 8 Hour) 650 MG ER tablet TAKE 1 TABLET BY MOUTH EVERY 8 HOURS IF NEEDED FOR MILD PAIN. DO NOT CRUSH, CHEW, OR SPLIT. 50 tablet 2 07/31/19 25 Active Blood Pressure kit Use TID at home 1 kit 10/07/19 25 Active meclizine (Antivert) 25 MG tabletIndicatio [...] NEEDED FOR PAIN 100 g 2 11/20/19 Active midodrine (Proamatine) 2.5 MG tablet Take 1 tablet (2.5 mg) by mouth 3 times daily. 270 tablet 1 01/08/20 Active albuterol 108 (90 Base) MCG/ACT inhalerIndicati ons:Moderate persistent asthma without complication Inhale 2 puffs every 6 (six) hours if needed for shortness of breath or wheezing. 18 g 3 01/08/20 Active lidocaine (Lidoderm) 5 % patch Apply 1 patch topically Once per day. Remove & discard patch within 12 hours or as directed by MD. 30 patch 2 01/08/20 Active fluticasone (Flonase) 50 MCG/ACT nasal spray Administer 1 spray into each nostril Once per day. 16 g 2 01/08/20 25 2024 Active clotrimazole-be tamethasone (Lotrisone) cream Apply topically 2 times daily for 28 days. 30 g 1 01/08/20 25 2024 Active meloxicam (Mobic) 7.5 MG tablet TAKE 1 TABLET BY MOUTH EVERY DAY 30 tablet 01/20/20 Active montelukast (Singulair) 10 MG tablet TAKE 1 TABLET BY MOUTH EVERY MORNING 90 tablet 1 01/21/20 Active albuterol 108 (90 Base) MCG/ACT inhalerIndicati ons:Moderate persistent asthma without complication Inhale 2 puffs every 6 (six) hours if needed for shortness of breath or wheezing. 18 g 3 05/13/19 25 2024 Discontinued(R eorder (will not trigger notification to Pharmacy)) lidocaine (Lidoderm) 5 % patch APPLY 1 PATCH TOPICALLY ONCE PER DAY. REMOVE & DISCARD PATCH WITHIN 12 HOURS OR DIRECTED BY MD. 30 patch 2 06/08/19 25 2024 Discontinued(R eorder (will not trigger notification to Pharmacy)) montelukast (Singulair) 10 MG tablet TAKE 1 TABLET BY MOUTH EVERY MORNING 90 tablet 1 06/08/19 25 2024 Discontinued midodrine (Proamatine) 2.5 MG tablet TOME REYNALDO TABLETA (2.5 MG) POR VIA ORAL KISHORE VECES AL BENJA 270 tablet 10/29/19 25 2024 Discontinued(R eorder (will not trigger notification to Pharmacy)) meloxicam (Mobic) 7.5 MG tablet TOME 1 TABLETA POR VIA ORAL TODOS LOS CARDOSO 30 tablet 12/15/19 25 2024 Discontinued Active Problems Problem Noted Date Diagnosed Date Vertigo 01/07/2025 Assessment & Plan (01/07/2025 2:01 PM EDT): Unclear if related to episode of hypotension, most likely orthostatic hypotension as above. However given improvement of symptoms on meclizine, I will refer to neurology for further evaluation. Class 1 obesity due to exces s calories with serious comorbidity and body mass index (BMI) of 32.0 to 32.9 in adult 01/07/2025 Assessment & Plan (01/07/2025 2:01 PM EDT): She is slowly gaining weight this year, unclear if related to steroid injections to both knees. We discussed re weight reduction options including exercise, life style modifications, diet. Patient is a status post bariatric surgery Recommended to decrease soda and sugary beverage consumption, increase protein intake with meals (at least 1 portion of protein with each meal) to assist with satiety, increase dietary fiber Recommended at least 150 min/week of moderate intensity exercise. Follow-up in 6-month Tinea corporis 01/07/2025 Assessment & Plan (01/07/2025 2:03 PM EDT): On upper extremities, she will use Lotrisone cream twice daily and follow-up with me if symptoms do not improve in 1 month, May need terbinafine cream Orthostatic hypotension 10/12/2024 Assessment & Plan (01/07/2025 2:00 PM EDT): Improving with midodrine 3 times daily, no change in medication for now and to follow-up with mastic worker. Follow-up with me in 3 months Will need additional cardiac evaluation if renal insufficiency workup is negative Assessment & Plan (10/12/2024 2:20 PM EDT): Unclear if related to adrenal insufficiency, POTS,? Diabetes insipidus or other, we will refer to mastic worker. 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 Patient will have increase [...] asthma without complication 06/18/2022 Assessment & Plan (01/07/2025 2:03 PM EDT): Controlled, continue albuterol inhaler and Singulair She declined influenza and COVID immunization today Assessment & Plan (01/12/2024 2:40 PM EDT): [...] told her to reach out to legal administrative assistant to help her write a letter so that housing give her some more time to get the letter from MH provider. She will res tart Effexor for anxiety and fu with me in 6m Encounters Date Type Department Care Team Description 01/20/2025 Orders Only GENERIC EXTERNAL DATA DEPARTMENT Provider, Generic External Data 01/20/2025 Telephone [facility] [address] [place] [address] Marian Crook MD Nurse Triage 01/20/2025 Refill [facility] [address] [place] [address] Marian Crook MD 01/19/2025 Refill [facility] [address] [place] [phone] Marian Crook MD 01/07/2025 9:00 AM EDT Office Visit [facility] [address] [place] [phone] Marian Crook MD Orthostatic hypotension (Primary Dx); Vertigo; Class 1 obesity due to excess calories with serious comorbidity and body mass index (BMI) of 32.0 to 32.9 in adult; Moderate persistent asthma without complication; Tinea corporis; Chronic low back pain without sciatica, unspecified back pain laterality; Dietary counseling; Exercise counseling 01/07/2025 Travel 01/06/2025 Telephone [facility] [address] [place] [address] Marian Crook MD CHART PREP 01/03/2025 9:00 AM EDT Office Visit [facility] [address] [place] [address] Ramon, Annette, OD Presbyopia (Primary Dx); Dermatochalasis of both upper eyelids; Dry eyes 01/03/2025 Travel 12/29/2024 Patient Outreach [facility] [address] [place] [address] Marian Crook MD Pre-visit Planning (SDOH screening completed on 06/23/2024) 12/13/2024 Refill [facility] [address] [place] [address] [phone] Marian Crook MD 11/19/2024 3:30 PM EDT Office Visit [facility] [address] [place] [address] Annette Mitchell CNP Dizziness; Chronic midline low back pain, unspecified whether sciatica present 11/19/2024 Travel 11/19/2024 Telephone [facility] [address] [place] [address] Marian Crook MD chart prep 11/18/2024 Refill [facility] [address] [place] [address] Annette Mitchell CNP Dizziness 11/11/2024 Results Follow-Up [address] [address] Marian Crook MD US Retroperitoneal Complete 11/08/2024 Orders Only [facility] External Provider, [facility] 11/04/2024 3:00 PM EDT Office Visit [address] [address] Annette Mitchell CNP Dizziness (Primary Dx) 11/04/2024 Travel 11/03/2024 Telephone [facility] [address] [place] [phone] Karina Corley MA Chart Prep 11/03/[address] [address] Marian Crook MD Nurse Triage 10/28/2024 Refill [facility] [address] [place] [phone] Stefan Meza MD 10/26/2024 2:30 PM EDT Clinical Support [facility] [address] [place] [phone] Lisa Allison RN Orthostatic hypotension [I95.1] 10/26/2024 Travel from Last 3 Months Immunizations Immunization Administration [...] Sign Reading Time Taken Comments Blood Pressure 116/62 01/07/2025 9:07 AM EDT Pulse 80 01/07/2025 9:07 AM EDT Temperature 36.1 C (97 F) 01/07/2025 9:07 AM EDT Respiratory Rate 22 01/07/2025 9:07 AM EDT Oxygen Saturation 97% 11/19/2024 3:37 PM EDT Inhaled Oxygen Concentration - - Weight 83.5 kg (184 lb) 01/07/2025 9:07 AM EDT Height 160 cm (5' 3 ) 01/07/2025 9:07 AM EDT Body Mass Index 32.59 01/07/2025 9:07 AM EDT Plan of Treatment Health Maintenance Due Date Last Done Comments CT Colonography 1975 Colonoscopy 1975 FIT 1975 Sigmoidoscopy 1975 Family Planning (PISQ) 1990 Hepatitis B Vaccines (2 of 3 - 19+ 3-dose series) 11/08/2013 10/11/2013, 12/02/2008, 10/11/2008 COVID-19 Vaccine ( season) 2024 04/25/2021, 05/14/2020, 04/23/2020 Influenza Vaccine (#1) 2024 , 12/20/2018, 05/15/2017, Additional history exists Mammogram 12/04/2024 12/05/2023, 09/21, 09/29/2017 FOBT 02/01/2025 02/02/2024 Zoster Vaccines (1 of 2) 2025 Depression Monitoring 04/14/2025 10/12/2024, 025 SDOH Screening 06/23/2025 06/23/2024 Disability Screening 11/04/2025 11/04/2024 Alcohol/Substance Use Screening 01/07/2026 01/07/2025 Tobacco Screening 01/12/2026 01/12/2025 Lipid Panel 10/17/2026 10/17/2021 Colorectal Cancer Screening 02/01/2027 FIT DNA/Cologuard 02/01/2027 [...] Name Priority Date/Time Associated Diagnosis Comments US VENOUS DUPLEX LE RT Routine 6:35 PM EDT XR ANKLE 3+ VIEWS RIGHT Routine 01/21/20 3:20 PM EDT XR FOOT 3+ VIEWS RIGHT Routine 3:20 PM EDT COMPREHENSIVE METABOLIC PANEL Routine 01/20/2025 3:19 PM EDT APTT Routine 01/20/2025 3:19 PM EDT PROTHROMBIN TIME-INR Routine 01/20/2025 3:19 PM EDT CBC WITH AUTO DIFFERENTIAL Routine 01/20/2025 3:19 PM EDT US RETROPERITONEAL COMPLETE Routine 11/08/2024 3:30 PM EDT HPV DNA, LOW/HIGH RISK Routine 10:22 [...] PM EDT Screening mammogram for breast cancer LIPID PANEL, STANDARD Routine 10/17/2021 2:37 PM EDT from Last 3 Months or Most Recently Relevant to Health Maintenance Results * US VENOUS DUPLEX LE RT (01/20/2025 6:35 PM EDT) Anatomical Region Laterality Modality Abdomen Ultrasound 01/20/2025 6:35 PM EDT Narrative 01/20/2025 6:35 PM EDT [address] [address] Ultrasound Report Signed Patient: Corina Nielsen MR#: [id number] : 1975 Acct:[id number] Age/Sex: 49 / F ADM Date: 01/20/25 Loc: HO.ED Attending Dr: Ordering Physician: Devin Shah Date of Service: 01/20/25 Procedure(s): US venous duplex LE RT Accession Number(s): [id number] cc: Devin Shah; Marian Crook MD Reason for Exam: Rigght calf pain. DVT? CLINICAL HISTORY: Rigght calf pain. DVT? Venous duplex ultrasound right lower extremity Comparison: None provided Findings: The visualized deep veins are fully compressible with normal Doppler color flow and spectral tracings. No popliteal cyst. IMPRESSION: 1. Negative for right lower extremity deep vein thrombosis. This document has been electronically signed by: Jia Mandujano MD on 01/20/2025 18:35:12 Dictated By: Jia Mandujano MD Signed By: <Electronically signed by Jia Mandujano MD in OV> 01/20/251834 DD/ 34 TD/TT: 01/20/251834 Health Care / Medical Job Titles: Procedure Note Donotuseinterpreter, Image - 01/20/[address] [address] Ultrasound Report Signed Patient: Baljit NielsenR#: [id number] : 1975Acct:[id number] Age/Sex: 49 / FADM Date: 01/20/25 Loc: .ED Attending Dr: Ordering Physician: Devin Shah Date of Service: 01/20/25 Procedure(s): US venous duplex LE RT Accession Number(s): [id number] cc: Devin Shah; Marian Crook MD Reason for Exam: Rigght calf pain. DVT? CLINICAL HISTORY: Rigght calf pain. DVT? Venous duplex ultrasound right lower extremity Comparison: None provided Findings: The visualized deep veins are fully compressible with normal Doppler color flow and spectral tracings. No popliteal cyst. IMPRESSION: 1. Negative for right lower extremity deep vein thrombosis. This document has been electronically signed by: Jia Mandujano MD on 01/20/2025 18:35:12 Dictated By: Jia Manduajno MD Signed By: <Electronically signed by Jia Mandujano MD in OV> 01/20/251834 DD/ 34 TD/TT: 01/20/251834 Health Care / Medical Job Titles: us [facility] External Provider IMG US PROCEDURES Final Result * XR Foot 3+ Views Right (01/20/2025 3:20 PM EDT) Anatomical Region Laterality Modality Lower Extremities, Foot Right Radiogra phic Imaging 01/20/2025 3:20 PM EDT Narrative 01/20/2025 3:41 PM EDT [address] [address] XRay Report Signed Patient: Corina Nielsen MR#: [id number] : 1975 Acct:[id number] Age/Sex: 49 / F ADM Date: 01/20/25 Loc: .ED Attending Dr: Ordering Physician: Devin Shah Date of Service: 01/20/25 Procedure(s): XR foot RT min 3V Accession Number(s): [id number] cc: Devin Shah; Marian Crook MD Reason for Exam: pain EXAMINATION: XR FOOT, RIGHT CLINICAL INFORMATION: pain COMPARISON: None available. TECHNIQUE: AP, lateral, and oblique views of the right foot. FINDINGS: Bone alignment is normal. No fracture or dislocation. Normal joint spaces. Small calcaneal spurs. Soft tissues otherwise normal. XR/XR foot RT min 3V IMPRESSION: Normal right foot. Electronically signed by: Diane Pichardo MD 01/20/2025 03:39 PM EDT RP Dictated By: Diane Pichardo MD Signed By: <Electronically signed by Diane Pichardo MD in OV> 01/20/25 1539 DD/ 152 TD/TT: 01/20/251529 Health Care / Medical Job Titles: MARILYN Procedure Note Donotnirmalainterpreter, Image - 01/20/[address] [address] XRay Report Signed Patient: Yarelis Nielsen#: [id number] : 1975Acct:[id number] Age/Sex: 49 / FADM Date: 01/20/25 Loc: HO.ED Attending Dr: Ordering Physician: Devin Shah Date of Service: 01/20/25 Procedure(s): XR foot RT min 3V Accession Number(s): [id number] cc: Devin Shah; Marian Crook MD Reason for Exam: pain EXAMINATION: XR FOOT, RIGHT CLINICAL INFORMATION: pain COMPARISON: None available. TECHNIQUE: AP, lateral, and oblique views of the right foot. FINDINGS: Bone alignment is normal. No fracture or dislocation. Normal joint spaces. Small calcaneal spurs. Soft tissues otherwise normal. XR/XR foot RT min 3V IMPRESSION: Normal right foot. Electronically signed by: Diane iPchardo MD 01/20/2025 03:39 PM EDT Dictated By: Diane Pichardo MD Signed By: <Electronically signed by Diane Pichardo MD in OV> 01/20/25 1539 DD/ 1520 TD/TT: 01/20/251529 Health Care / Medical Job Titles: MARILYN us [facility] External Provider IMG XR PROCEDURES Final Result * XR Ankle 3+ Views Right (01/20/2025 3:20 PM EDT) Anatomical Region Laterality Modality Lower Extremities, Ankle Right Radiogr aphic Imaging 01/20/2025 3:20 PM EDT Narrative 01/20/2025 3:[address] [address] XRay Report Signed Patient: Corina Nielsne MR#: [id number] : 1975 Acct:[id number] Age/Sex: 49 / F ADM Date: 01/20/25 Loc: HO.ED Attending Dr: Ordering Physician: Devin Shah Date of Service: 01/20/25 Procedure(s): XR ankle RT min 3V Accession Number(s): [id number] cc: Devin Shah; Marian Crook MD Reason for Exam: pain EXAMINATION: XR ANKLE, RIGHT CLINICAL INFORMATION: pain COMPARISON: None available. TECHNIQUE: AP, lateral, and mortise views of the right ankle. FINDINGS: No fracture. Alignment is anatomic. No erosions. Joint spaces are maintained. Small calcaneal spurs. Soft tissues are otherwise normal. XR/XR ankle RT min 3V IMPRESSION: No fracture or dislocation. Small calcaneal spurs. Electronically signed by: Diane Pichardo MD 01/20/2025 03:39 PM EDT Dictated By: Diane Pichardo MD Signed By: <Electronically signed by Diane Pichardo MD in OV> 01/20/25 1539 DD/ 1520 TD/TT: 01/20/25 1530 Health Care / Medical Job Titles: MARILYN Procedure Note Donotuseinterpreter, Image - 01/20/[address] [address] XRay Report Signed Patient: Baljit NielsenR#: [id number] : 1975Acct:[id number] Age/Sex: 49 / FADM Date: 01/20/25 Loc: HO.ED Attending Dr: Ordering Physician: Devin Shah Date of Service: 01/20/25 Procedure(s): XR ankle RT min 3V Accession Number(s): [id number] cc: Devin Shah; Marian Crook MD Reason for Exam: pain EXAMINATION: XR ANKLE, RIGHT CLINICAL INFORMATION: pain COMPARISON: None available. TECHNIQUE: AP, lateral, and mortise views of the right ankle. FINDINGS: No fracture. Alignment is anatomic. No erosions. Joint spaces are maintained. Small calcaneal spurs. Soft tissues are otherwise normal. XR/XR ankle RT min 3V IMPRESSION: No fracture or dislocation. Small calcaneal spurs. Electronically signed by: Diane Pichardo MD 01/20/2025 03:39 PM EDT RP Dictated By: Diane Pichardo MD Signed By: <Electronically signed by Diane Pichardo MD in OV> 01/20/25 1539 DD/ 152 TD/TT: 01/20/25 153 Health Care / Medical Job Titles: MARILYN Authorjong Provider Result Type Result [facility] External Provider IMG XR PROCEDURES Final Result * CBC auto differential (01/20/2025 3:19 PM EDT) White Blood Count 7.1 4.8 - 10.8 X10*3/uL [facility] Red Blood Count 4.23 4.20 - 5.50 X10*6/uL [facility] Hemoglobin 13.0 12.0 - 16.0 g/dl [facility] Hematocrit 39.5 37.0 - 47.0 % [facility] Mean Corpuscular Volume 93.4 80.0 - 98.0 fL [facility] Mean Corpuscular Hemoglobin 30.7 27.0 - 33.0 pg [facility] Mean Corpuscular HGB Conc 32.9 31.0 - 35.0 g/dl [facility] Red Cell Distribution Width 12.5 11.0 - 16.0 % [facility] Platelet Count 247 160 - 400 X10*3/uL [facility] Mean Platelet Volume 10.6 9.4 - 12.3 fL [facility] Neutrophils Percent Auto 63.7 45 - 73 % [facility] Imm Gran Pct Auto 0.3 0.0 - 0.4 % [facility] Lymphocytes Percent Auto 25.2 20 - 40 % [facility] Monocytes Percent Auto 6.3 2 - 11 % [facility] Eosinophils Percent Auto 3.9 0 - 4 % [facility] Basophils Percent Auto 0.6 0 - 2 % [facility] NRBC Pct Auto 0.0 0.0 - 0.2 /100WBC [facility] Neutrophils Absolute Auto 4.5 2.0 - 8.3 x10*3/uL [facility] Imm Gran Abs Auto 0.02 0.00 - 0.03 X10*3/uL [facility] Lymphocytes Absolute Auto 1.8 1.2 - 4.9 X10*3/uL [facility] Monocytes Absolute Auto 0.5 0.1 - 1.2 X10*3/uL [facility] Eosinophils Absolute Auto 0.3 0.0 - 0.4 X10*3/uL [facility] Basophils Absolute Auto 0.0 0.0 - 0.2 X10*3/uL [facility] NRBC Abs Auto 0.000 0.0 - 0.012 X10*3/uL [facility] 01/20/2025 3:19 PM EDT 01/20/2025 3:22 PM EDT us Generic External Data Provider LAB BLOOD ORDERAB LES Final Result Performing Organization Address City/[facility]/ZIP Co de Phone Number [facility] [address] [place] [phone] * Partial Thromboplastin Time, Activated (APTT) (01/20/2025 3:19 PM EDT) Partial Thromboplastin Time 30.6 26.7 - 34.1 SEC [facility] 01/20/2025 3:19 PM EDT 01/20/2025 3:22 PM EDT us Generic External Data Provider LAB BLOOD ORDERAB LES Final Result Performing Organization Address City/[facility]/ZIP Co de Phone Number [facility] [address] [place] [phone] * Prothrombin Time-INR (01/20/2025 3:19 PM EDT) Prothrombin Time 11.9 10.9 - 12.4 SEC [facility] INTERNATIONAL NORM RATIO 1.0 0.9 - 1.1 [facility] Comment:INTERNATIONAL NORMAL IZED RATIO (INR) REFERENCE RANGES Reference RangeFor patients not on anticoagulant therapy: 0.9 - 1.1INR ranges for oral anticoagulanttherapy:For prevention and treatment of venous thrombosis and pulmonary embolism: 2.0 - 3.0For acute myocardial infarction with aspirin therapy: 2.0 - 3.0For acute myocardial infarction without aspirin therapy: 3.0 - 4.0For patients with mechanical prosthetic heart valves: 2.5 - 3.5 01/20/2025 3:19 PM EDT 01/20/2025 3:22 PM EDT us Generic External Data Provider LAB BLOOD ORDERAB LES Final Result Performing Organization Address City/State/[facility] Co de Phone Number [facility] [address] [place] [phone] * (ABNORMAL) Comprehensive Metabolic Panel (01/20/2025 3:19 PM EDT) Pathologist [facility] Sodium 141 135 - 145 mmol/L [facility] Potassium 4.1 3.3 - 5.1 mmol/L [facility] Chloride 110(H) 96 - 108 mmol/L [facility] Carbon Dioxide 27 22 - 29 mmol/L [facility] Anion Gap 8(L) 12 - 20 [facility] Urea Nitrogen (BUN) 16 9 - 16 mg/dL [facility] Creatinine, Serum 0.91 0.5 - 1.4 mg/dL [facility] Creatinine Clr Calc Pharmacy 74.5 [facility] Comment:Provided height and weight: 160.02 cm,79.379 kg.eGFR (calculated from the MDRD study equation) and eCrCl(calculated from the Cockcroft-Gault equation) are based ondifferent parameters and may not yield comparable results.If eCrCl result is absurd, please check patient'sheight/weight. Estimated Glomerular Filt Rate >60 [facility] Comment:Chronic Kidney Disea se: Estimated GFR < 60 mL/min/1.85b0Nfxiob Kidney Disease: Estimated GFR < 15 mL/min/1.73m2 Glucose 91 60 - 115 mg/dL [facility] Calcium 8.9 8.4 - 10.2 mg/dL [facility] Bilirubin, Total 0.2 0.0 - 1.0 mg/dL [facility] Aspartate Amino Transferase 25 5 - 31 U/L [facility] Alanine Aminotransferase 18 0 - 31 U/L [facility] Total Protein 7.2 6.5 - 8.0 g/dL [facility] Albumin Level 4.3 3.5 - 5.0 g/dL [facility] Alkaline Phosphatase 69 39 - 117 U/L [facility] 01/20/2025 3:19 PM EDT 01/20/2025 3:22 PM EDT us Generic External Data Provider LAB BLOOD ORDERAB LES Final Result Performing Organization Address City/State/[facility] Co de Phone Number [facility] [address] [place] [phone] * US Retroperitoneal Complete (11/08/2024 3:30 PM EDT) Anatomical Region Laterality Modality Ultrasound 11/08/2024 3:30 PM EDT Narrative 11/09/2024 7:01 AM EDT [address] [address] Ultrasound Report Signed Patient: Corina Nielsen MR#: [id number] : 1975 Acct:[id number] Age/Sex: 49 / F ADM Date: 11/08/24 Loc: HO. Attending Dr: Shelly PATEL Ordering Physician: Shelly Bo Date of Service: 11/08/24 Procedure(s): US retroperitoneal comp Accession Number(s): [id number] cc: Marian Crook MD; Shelly Bo CATALOGUE CLERK-BC EXAMINATION: US RETROPERITONEUM HISTORY: R35.0 - Frequency [...] 11/09/24 0658 DD/ 1530 TD/TT: 11/08/24 1600 Health Care / Medical Job Titles: Procedure Note Donotuseinterpreter, Image - 11/09/2024 [place] [address] Ultrasound Report Signed Patient: Nika NielsenMagdiel#: [id number] : 1975Acct:[id number] Age/Sex: 49 / FADM Date: 11/08/24 Loc: HO.US Attending Dr: Shelly PATEL Ordering Physician: Shelly Bo Date of Service: 11/08/24 Procedure(s): US retroperitoneal comp Accession Number(s): [id number] cc: Marian Crook MD; Shelly Bo EXAMINATION: [...] 11/09/24 0658 DD/ 1530 TD/TT: 11/08/24 1600 Health Care / Medical Job Titles: [facility] External Provider IMG US PROCEDURES Edited Result - Final * HPV DNA, Low/High Risk (05/05/2024 10:22 AM EST) HPV High Risk Negative Negative [facility] HPV Genotype 16 Negative Negative [facility] HPV Genotype 18 Negative Negative [facility] Comment:HPV testing performe d at [facility] (CLIA#[id number]), [address] [place] [phone].Testing for HPV was performed using the [employer] KALI 6800system. The presence of HPV in [...] ORDERAB LES Final Result Performing Organization Address City/State/[facility] Co de Phone Number [facility] [address] [place] [phone] * Pap Smear (05/05/2024 10:22 AM EST) 05/05/2024 10:2 2 AM EST 05/06/2024 6:10 AM EST Narrative [facility] - 05/11/2024 9:16 AM EST ----- ------- Name: Corina Nielsen Age/Sex: 49/F : 1975 Unit#: [id number] Attend Dr: Pj Posadas MD Re05/05/24 Status: DEP REF Location: [facility] Disch: ----- ------- SPEC : [id number] RECD: 05/06/24 STATUS: YESSI CARDENAS NUM: [id number] LAURA: 05/05/24-1022 [facility] DR: Pj Posadas MD ENTERED: 05/06/24 [...] Received ThinPrep-Cervical Copies To: Marian Crook MD [address] [address] Pj Posadas MD [facility] [address] [place] [address] [address] [place] [address] ----- ------- Signed (signature on file) SCARLET Hernandez (ASCP) 05/11/24 0916 ----- ------- END OF REPORT Generic External Data Provider LAB CYTOLOGY ORDE RABLES Final Result Performing Organization Address [facility] Co de Phone Number [facility] [address] [place] [phone] * Hepatitis C Ab (03/27/2024 10:19 AM EST) [facility] Hepatitis C Antibody Nonreactive Nonreactive [facility] Comment:Antibodies to HCV no t detected; does not exclude early acuteHCV infection. 03/27/2024 10:1 9 AM EST 03/27/2024 10:19 AM EST Generic External Data Provider LAB BLOOD ORDERAB LES Final Result Performing Organization Address [facility] de Phone Number [facility] [address] [place] [phone] * HIV-1/2 Antigen and Antibodies, Fourth Generation, with Reflexes (03/27/2024 10:19 AM EST) Pathologist [facility] HIV AB/AG Nonreactive Nonreactive [facility] Comment:HIV-1 p24 Ag and/or HIV-1/HIV-2 Ab not detected.A test result that is nonreactive does not exclude thepossibility of exposure to or infection with HIV-1 and/orHIV-2. Nonreactive results in this assay for individualswith prior exposure to HIV-1 and/or HIV-2 may be due toantigen and antibody levels that are below the limit ofdetection of this assay.[employer] HIV Ag/Ab Combo assay result andsupplemental assay results should be interpreted inconjunction with the patient's clinical presentation,history and other laboratory results. If the results areinconsistent with clinical evidence, additional testing issuggested to confirm the result. 03/27/2024 10:1 9 AM EST 03/27/2024 10:19 AM EST us Generic External Data Provider LAB BLOOD ORDERAB LES Final Result Performing Organization Address City/State/[facility] Co de Phone Number [facility] [address] [place] [phone] * Cologuard?? colon cancer screening (02/02/2024 9:15 AM EST) Cologuard Result Negative Negative 02/08/20 2:05 AM EST [facility] (CLIA #:[id number]) Comment: NEGATIVE TEST RESULT. A negative Cologuard [...] Gonzalez et al, N Engl J Med 2014;370(14):6376-3721) The normal value (reference range) for this assay is negative. COLOGUARD RE-SCREENING RECOMMENDATION: Periodic colorectal cancer screening is an important part of preventive healthcare for asymptomatic individuals at average risk for colorectal cancer. Following a negative Cologuard result, the [place] Cancer Society and U.S. Multi-Society Task Force screening guidelines recommend a Cologuard re-screening interval of 3 years. References: [place] [employer] Guideline for Colorectal Cancer Screening: https://www.cancer.org/cancer/ylizk-psjdej-loigrk/quauycnzs-rjffckgmr-pmrxwto/ac s-rec ommendations.html.; Hector DK, Julio Csear PEÑA, Dominitz JK, Colorectal Cancer Screening: Recommendations for Physicians and Patients from the U.S. Multi-Society Task Force on Colorectal Cancer Screening , Am J Gastroenterology 2017; 112:6819-0774. TEST DESCRIPTION: Composite algorithmic analysis of stool [...] Warren. et al, N Engl J Med 2014;370(14):4573-4552.) Cologuard may produce a false negative or false positive result (no colorectal cancer or precancerous polyp present at colonoscopy follow up). A negative Cologuard test result does not guarantee the absence of CRC or advanced adenoma (pre-cancer). The current Cologuard screening interval is every 3 years. ([place] Cancer Society and U.S. Multi-Society Task Force). Cologuard performance data in a 10,000 patient pivotal study using colonoscopy as the reference method can be accessed at the following location: www.LiveOnDemand/results. Additional description of the Cologuard test process, warnings and precautions can be found at www.[employer])ogQuarterlyrd.com. Stool specimen (specimen) Rectal contents / Unknown 02/02/2024 9:15 AM EST 02/03/2024 10:52 AM EST Marian Crook MD LAB MOLECULAR DIAGNOSTIC S ORDERABLES Final Result [facility] (CLIA #:[id number]) [address] [place] [address], * BI Mammogram Screening Tomosynthesis Bilateral (12/05/2023 3:30 PM EDT) Anatomical Region Laterality Modality Breast Bilateral Mammography 12/05/2023 3:30 PM EDT Narrative 12/19/2023 8:58 AM EDT [facility] [address] [place] [address] Mammography Report Signed Patient: Corina Nielsen MR#: [id number] : 1975 Acct:[id number] Age/Sex: 48 / F ADM Date: 12/05/23 Loc: .MAMMO Attending Dr: Marian Crook MD Ordering Physician: Marian Crook MD Results: 1Ne gative Date of Service: 12/05/23 Follow Up: 1 Year From [facility] Mammogram Procedure(s): MM tomosynthesis screening BI Accession Number(s): [id number] cc: Marian Crook MD EXAMINATION: MM SCREENING [...] 12/19/23 0855 DD/ 1530 TD/TT: 12/05/23 1540 Health Care / Medical Job Titles: Procedure Note Donotuseinterpreter, Image - 12/19/2023 [facility] [address] [place], [place] [address] Mammography Report Signed Patient: Baljit NielsenR#: [id number] : 1975Acct:[id number] Age/Sex: 48 / FADM Date: 12/05/23 Loc: HO.MAMMO Attending Dr: Marian Crook MD Ordering Physician: Marian Crook MDResults: 1Ne gative Date of Service: 12/05/23Follow Up: 1 Year From Orig inal Mammogram Procedure(s): MM tomosynthesis screening BI Accession Number(s): [id number] cc: Marian Corok MD EXAMINATION: MM SCREENING DIGITAL BREAST TOMOSYNTHESIS, [...] 12/19/23 0855 DD/ 1530 TD/TT: 12/05/23 1540 Health Care / Medical Job Titles: Marian Crook MD IMG BI PROCEDURES Final Result * LIPID PANEL, STANDARD (10/17/2021 2:37 PM EDT) Chol/HDLC Ratio 2.9 <5.0 (calc) [facility] Cholesterol, Total 154 <200 mg/dL [facility] HDL Cholesterol 54 > OR = 50 mg/dL [facility] LDL Cholesterol 86 mg/dL (calc) [facility] Comment: Reference range: <100 Desirable range <100 mg/dL for primary prevention; <70 mg/dL for patients with CHD or diabetic patients with > or = 2 CHD risk factors. LDL-C is now calculated using the Camacho-Javad calculation, which is a validated novel method providing better accuracy than the Friedewald equation in the estimation of LDL-C. Camacho SS et al. TAYO. 2013;310(19): 8390-5125 (http://education.iOculi.COINLAB/faq/ZUI723) Non-HDL Cholesterol 100 <130 mg/dL (calc) [facility] Comment: For patients with diabetes plus 1 major ASCVD risk factor, treating to a non-HDL-C goal of <100 mg/dL (LDL-C of <70 mg/dL) is considered a therapeutic option. Triglycerides 56 <150 mg/dL [facility] 10/17/2021 2:37 PM EDT us Irma Arteaga NP LAB BLOOD ORDERABLES Final Resu lt [facility] [address] from Last 3 Months or Most Recently Relevant to Health Maintenance Insurance [facility] [address] [place] [phone] * Guarantor: Corina Nielsen Account Type Relation to Patient Date of Phone Billing Address Personal/Family Self [address] [facility] [id number] [place] [address] Care Teams Recovery Specialist Relationship Specialty Start Date End Date Marian Crook MD [address] [place] [phone] PCP - General Internal Medicine 10/25/24
--- OUTSIDE RECORDS SUMMARY | 2025-01-20 18:57 | XMS_ITS | Encounter Summary ---
Author Organization [employer] Address [address] [facility] 7 [place] [address] Care Team Providers Care Strategic Sourcing Consultant Name Role Phone Marian Crook MD Primary Care Provider + Marian Crook MD Primary Care Provider + Reason for Visit * Reason Onset Date Comments FYI 08/03/2024 Encounter Details Date Type Department Care Team ([facility] st Contact Info) Description 08/03/[address] [facility] MEDICINE [address] [place], [place] [phone] Marian Crook MD [address] [place], [place] [phone] FYI Social History Tobacco Use Types Packs/Day [...] she has an upcoming visit with : [facility] Radiology 09/28 1pm . Should be at registration by 12:[address] [place] [address] documented in this encounter Plan of Treatment Not on file documented as of this encounter Visit Diagnoses Not on filedocumented in this encounter Additional Health Concerns Assessment Noted Time PHQ-9 Depression Total Score: 22 024 2:02 PM EDT documented as of this encounter Care Teams Strategic Sourcing Consultant Relationship Specialty Start Date End Date Marian Crook MD [address] [place] [address] PCP - General Internal Medicine 09/12/23 10/24/24 Marian Crook MD [address] [place] [address] PCP - General Internal Medicine 10/25/24 documented as of this encounter
--- OUTSIDE RECORDS SUMMARY | 2025-01-20 18:57 | XMS_ITS | Encounter Summary ---
Author Organization [employer] Address [address] [facility] 7t [place] [address] Care Team Providers Care Shipping Order Clerk Name Role Phone Marian Crook MD Primary Care Provider + Encounter Details Date Type Department Care Team (Late st Contact Info) Description 01/20/2025 Orders Only GENERIC EXTERNAL DATA [...] LE RT Routine 6:35 PM EDT XR FOOT 3+ VIEWS RIGHT Routine 3:20 PM EDT XR ANKLE 3+ VIEWS RIGHT Routine 01/20/2025 3:20 PM EDT CBC WITH AUTO DIFFERENTIAL Routine 01/20/2025 3:19 PM EDT APTT Routine 01/20/2025 3:19 PM EDT PROTHROMBIN TIME-INR Routine 01/20/2025 3:19 PM EDT COMPREHENSIVE METABOLIC PANEL Routine 01/20/2025 3:19 PM EDT documented in this encounter Results * US VENOUS DUPLEX LE RT (01/20/2025 6:35 PM EDT) Anatomical Region Laterality Modality Abdomen Ultrasound 01/20/2025 6:35 PM EDT Narrative 01/20/2025 6:35 PM EDT [address] [address] Ultrasound Report Signed Patient: Corina Nielsen MR#: [id number] : 1975 Acct:[id number] Age/Sex: 49 / F ADM Date: 01/20/25 Loc: HO.ED Attending Dr: Ordering Physician: Devin Shah Date of Service: 01/20/25 Procedure(s): US venous duplex LE RT Accession Number(s): [id number] cc: Devin Shah; Marian Crook MD Reason [...] in OV> 01/20/251834 DD/ 34 TD/TT: 01/20/251834 General Service Officer: Procedure Note Donsundeepter, Image - 01/20/[address] [address] Ultrasound Report Signed Patient: Baljit NielsenR#: [id number] : 1975Acct:[id number] Age/Sex: 49 / FADM Date: 01/20/25 Loc: HO.ED Attending Dr: Ordering Physician: Devin Shah Date of Service: 01/20/25 Procedure(s): US venous duplex LE RT Accession Number(s): [id number] cc: Devin Shah; Marian Crook MD Reason [...] in OV> 01/20/251834 DD/ 34 TD/TT: 01/20/251834 General Service Officer: us [facility] External Provider IMG US PROCEDURES Final Result * XR Ankle 3+ Views Right (01/20/2025 3:20 PM EDT) Anatomical Region Laterality Modality Lower Extremities, Ankle Right Radiogr aphic Imaging 01/20/2025 3:20 PM EDT Narrative 01/20/2025 3:42 PM EDT [address] [address] XRay Report Signed Patient: Corina Nielsen MR#: [id number] : 1975 Acct:[id number] Age/Sex: 49 / F ADM Date: 01/20/25 Loc: .ED Attending Dr: Ordering Physician: Devin Shah Date of Service: 01/20/25 Procedure(s): XR ankle RT min 3V Accession Number(s): [id number] cc: Devin Shah; Marian Crook MD Reason [...] 01/20/25 1539 DD/ 1520 TD/TT: 01/20/25 1530 General Service Officer: MARILYN Procedure Note Donotuseinterpreter, Image - 01/20/[address] [place] [address] XRay Report Signed Patient: Yarelis Nielsen#: [id number] : 1975Acct:[id number] Age/Sex: 49 / FADM Date: 01/20/25 Loc: HO.ED Attending Dr: Ordering Physician: Devin Shah Date of Service: 01/20/25 Procedure(s): XR ankle RT min 3V Accession Number(s): [id number] cc: Devin Shah; Marian Crook MD Reason [...] Small calcaneal spurs. Electronically signed by: Diane Pihcardo MD 01/20/2025 03:39 PM EDT Dictated By: Diane Pichardo MD Signed By: <Electronically signed by Diane Pichardo MD in OV> 01/20/25 1539 DD/ 1520 TD/TT: 01/20/25 1530 General Service Officer: MARILYN us [facility] External Provider IMG XR PROCEDURES Final Result * XR Foot 3+ Views Right (01/20/2025 3:20 PM EDT) Anatomical Region Laterality Modality Lower Extremities, Foot Right Radiogra phic Imaging 01/20/2025 3:2 0 PM EDT Narrative 01/20/2025 3:41 PM EDT [address] [place] [address] XRay Report Signed Patient: Corina Nielsen MR#: [id number] : 1975 Acct:[id number] Age/Sex: 49 / F ADM Date: 01/20/25 Loc: HO.ED Attending Dr: Ordering Physician: Devin Shah Date of Service: 01/20/25 Procedure(s): XR foot RT min 3V Accession Number(s): [id number] cc: Devin Shah; Marian Crook MD Reason [...] 01/20/25 1539 DD/ 1520 TD/TT: 01/20/25 1530 General Service Officer: MARILYN Procedure Note Donotuseinterpreter, Image - 01/20/[address] [address] XRay Report Signed Patient: Baljit NielsenR#: [id number] : 1975Acct:[id number] Age/Sex: 49 / FADM Date: 01/20/25 Loc: HO.ED Attending Dr: Ordering Physician: Devin Shah Date of Service: 01/20/25 Procedure(s): XR foot RT min 3V Accession Number(s): [id number] cc: Devin Shah; Marian Crook MD Reason [...] 03:39 PM EDT RP Dictated By: Diane Pichadro MD Signed By: <Electronically signed by Diane Pichardo MD in OV> 01/20/25 1539 DD/ 1520 TD/TT: 01/20/25 1530 General Service Officer: MARILYN [facility] External Provider IMG XR PROCEDURES Final Result * (ABNORMAL) Comprehensive Metabolic Panel (01/20/2025 3:19 PM EDT) Sodium 141 135 - 145 mmol/L [facility] Potassium 4.1 3.3 - 5.1 mmol/L [facility] Chloride 110(H) 96 - 108 mmol/L [facility] Carbon Dioxide 27 22 - 29 mmol/L [facility] Anion Gap 8(L) 12 - 20 [facility] Urea Nitrogen (BUN) 16 9 - 16 mg/dL [facility] Creatinine, Serum 0.91 0.5 - 1.4 mg/dL [facility] Creatinine Clr Calc Pharmacy 74.5 [facility] Comment:Provided height and weight: 160.02 cm,79.379 kg.eGFR (calculated from the MDRD study equation) and eCrCl(calculated from the Cockcroft-Gault equation) are based ondifferent parameters and may not yield comparable results.If eCrCl result is absurd, please check patient'sheight/weight. Estimated Glomerular Filt Rate >60 [facility] Comment:Chronic Kidney Disea se: Estimated GFR < 60 mL/min/1.90a2Vkqhcj Kidney Disease: Estimated GFR < 15 mL/min/1.73m2 Glucose 91 60 - 115 mg/dL [facility] Calcium 8.9 8.4 - 10.2 mg/dL [facility] Bilirubin, Total 0.2 0.0 - 1.0 mg/dL [facility] Aspartate Amino Transferase 25 5 - 31 U/L [facility] Alanine Aminotransferase 18 0 - 31 U/L [facility] Total Protein 7.2 6.5 - 8.0 g/dL [facility] Albumin Level 4.3 3.5 - 5.0 g/dL [facility] Alkaline Phosphatase 69 39 - 117 U/L [facility] 01/20/2025 3:19 PM EDT 01/20/2025 3:22 PM EDT Generic External Data Provider LAB BLOOD ORDERAB LES Final Result Performing Organization Address [facility] Co de Phone Number [facility] [address] [place] [phone] * Partial Thromboplastin Time, Activated (APTT) (01/20/2025 3:19 PM EDT) Partial Thromboplastin Time 30.6 26.7 - 34.1 SEC [facility] 01/20/2025 3:19 PM EDT 01/20/2025 3:22 PM EDT Generic External Data Provider LAB BLOOD ORDERAB LES Final Result Performing Organization Address [facility] Co de Phone Number [facility] [address] [place] [phone] * Prothrombin Time-INR (01/20/2025 3:19 PM EDT) Prothrombin Time 11.9 10.9 - 12.4 SEC [facility] INTERNATIONAL NORM RATIO 1.0 0.9 - 1.1 [facility] Comment:INTERNATIONAL NORMAL IZED RATIO (INR) [...] Provider LAB BLOOD ORDERAB LES Final Result [facility] [address] [place] [address] [phone] * CBC auto differential (01/20/2025 3:19 PM EDT) White Blood Count 7.1 4.8 - 10.8 X10*3/uL [facility] Red Blood Count 4.23 4.20 - 5.50 X10*6/uL [facility] Hemoglobin 13.0 12.0 - 16.0 g/dl [facility] Hematocrit 39.5 37.0 - 47.0 % [facility] Mean Corpuscular Volume 93.4 80.0 - 98.0 fL [facility] Mean Corpuscular Hemoglobin 30.7 27.0 - 33.0 pg [facility] Mean Corpuscular HGB Conc 32.9 31.0 - 35.0 g/dl [facility] Red Cell Distribution Width 12.5 11.0 - 16.0 % [facility] Platelet Count 247 160 - 400 X10*3/uL [facility] Mean Platelet Volume 10.6 9.4 - 12.3 fL [facility] Neutrophils Percent Auto 63.7 45 - 73 % [facility] Imm Gran Pct Auto 0.3 0.0 - 0.4 % [facility] Lymphocytes Percent Auto 25.2 20 - 40 % [facility] Monocytes Percent Auto 6.3 2 - 11 % [facility] Eosinophils Percent Auto 3.9 0 - 4 % [facility] Basophils Percent Auto 0.6 0 - 2 % [facility] NRBC Pct Auto 0.0 0.0 - 0.2 /100WBC [facility] Neutrophils Absolute Auto 4.5 2.0 - 8.3 x10*3/uL [facility] Imm Gran Abs Auto 0.02 0.00 - 0.03 X10*3/uL [facility] Lymphocytes Absolute Auto 1.8 1.2 - 4.9 X10*3/uL [facility] Monocytes Absolute Auto 0.5 0.1 - 1.2 X10*3/uL [facility] Eosinophils Absolute Auto 0.3 0.0 - 0.4 X10*3/uL [facility] Basophils Absolute Auto 0.0 0.0 - 0.2 X10*3/uL [facility] NRBC Abs Auto 0.000 0.0 - 0.012 X10*3/uL [facility] 01/20/2025 3:19 PM EDT 01/20/2025 3:22 PM EDT us Generic External Data Provider LAB BLOOD ORDERAB LES Final Result [facility] [address] [place] [address] [phone] documented in this encounter Visit Diagnoses Not on filedocumented in this encounter Additional Health Concerns Assessment Noted Time PHQ-9 Depression Total Score: 13 10/12/ 025 9:26 AM EDT documented as of this encounter Care Teams Shipping Order Clerk Relationship Specialty Start Date End Date Marian Crook MD [address] [place] [phone] PCP - General Internal Medicine 10/25/24 documented as of this encounter
--- OUTSIDE RECORDS SUMMARY | 2025-01-20 18:58 | XMS_ITS | Encounter Summary ---
Author Organization [employer] Address [address] [facility] 7 [place] [address] Care Team Providers Care Acoustic Intelligence Specialist Name Role Phone Marian Crook MD Primary Care Provider + Marian Crook MD Primary Care Provider + Reason for Visit * Reason Onset Date Comments Med Refill 06/02/2024 Encounter Details Date Type Department Care Team ([facility] st Contact Info) Description 06/02/2024 Telephone [facility] MEDICINE [address] [place], [place] [phone] Marian Crook MD [address] [place], [place] [phone] Med Refill Social History Tobacco Use Types [...] documented as of this encounter Care Teams Acoustic Intelligence Specialist Relationship Specialty Start Date End Date Marian Crook MD [address] [place] [address] PCP - General Internal Medicine 09/12/23 10/24/24 Marian Crook MD [address] [place] [address] PCP - General Internal Medicine 10/25/24 documented as of this encounter
--- OUTSIDE RECORDS SUMMARY | 2025-01-20 18:58 | XMS_ITS | Encounter Summary ---
Author Organization [employer] Address [address] [facility] 7 [place] [address] Care Team Providers Care Pulpwood Contractor Name Role Phone Marian Crook MD Primary Care Provider + Reason for Visit * Reason Comments Med Refill Encounter Details Date Type Department Care Team (Late st Contact Info) Description 11/18/2024 Refill [facility] MEDICINE [address] [place] [address] Annette Mitchell, [employer] [address] [place] [address] Dizziness Social History Tobacco Use Types Packs/Day [...] documented as of this encounter Care Teams Pulpwood Contractor Relationship Specialty Start Date End Date Marian Crook MD [address] [place] [phone] PCP - General Internal Medicine 10/25/24 documented as of this encounter
--- OUTSIDE RECORDS SUMMARY | 2025-01-20 18:58 | XMS_ITS | Encounter Summary ---
Author Organization [employer] Address [address] [place] [address] 7 [place] [address] Care Team Providers Care Post Graduate Internship Name Role Phone Marian Crook MD Primary Care Provider + Marian Crook MD Primary Care Provider + Reason for Visit * Reason Comments Med Refill Encounter Details Date Type Department Care Team ([facility] st Contact Info) Description 06/05/2024 Refill [facility] MEDICINE [address] [place], [place] [phone] Marian Crook MD [address] [place], [place] [phone] Social History Tobacco Use Types Packs/Day Years [...] documented as of this encounter Care Teams Post Graduate Internship Relationship Specialty Start Date End Date Marian Crook MD [address] [place] [address] PCP - General Internal Medicine 09/12/23 10/24/24 Marian Crook MD [address] [place] [address] PCP - General Internal Medicine 10/25/24 documented as of this encounter
--- OUTSIDE RECORDS SUMMARY | 2025-01-20 18:58 | XMS_ITS | Clinical Summary ---
Author Organization [facility] Address [address] [place] [address] Phone Care Team Providers Care Insurance Agent Name Role Phone Marian Crook MD Primary Care Provider [phone] Encounters Date Type Department Care Team Description 12/21/2024 Telephone [facility] Cardiology [facility] [address] [place] [address] Marian Crook MD 12/21/2024 Telephone [place] [address] [place] [phone] Marian Crook MD from Last 3 Months Social History Tobacco [...] patient's age to complete this topic Insurance [facility] Care Teams Insurance Agent Relationship Specialty Start Date End Date Marian Crook MD [address] [phone] PCP - General Internal Medicine 07/08/24
[2025-01-20 19:24] VITALS: BP 97/54; PULSE 71; RESP 16; TEMP 37; O2SAT 93
== END 2025-01-20 19:25 | disposition home or self-care (01) ==
PROVIDERS: Physician Assistant; Emergency Provider Student in an Organized Health Care Education/Training Program; PCP Internal Medicine
DX: M77.31 Calcaneal spur, right foot (principal); G89.29 Other chronic pain; Z79.899 Other long term (current) drug therapy
CPT/HCPCS: 36415; 73610; 73630; 80053; 85025; 85610; 85730; 93971; 99283; 99284

== ENCOUNTER → 2025-01-20 15:12 | Outpatient (BNV) | payer OTHER, SELFPAY | PROVIDERS: PCP Internal Medicine; Visit Provider Radiology Diagnostic Radiology | DX: M79.661 Pain in right lower leg (principal) | CPT/HCPCS: 73610; 73630; 93971 ==

== ENCOUNTER 2025-01-21 07:54 | Outpatient (REF) | payer OTHER, SELFPAY ==
--- OUTSIDE RECORDS SUMMARY | 2025-01-21 07:56 | XMS_ITS | Encounter Summary ---
Author Organization [employer] Address [address] [place] [address] 7 [place] [address] Care Team Providers Care Learning And Development Assistant Name Role Phone Marian Crook MD Primary Care Provider + Marian Crook MD Primary Care Provider + Reason for Visit * Reason Onset Date Comments Med Refill 03/25/2024 Encounter Details Date Type Department Care Team (Late st Contact Info) Description 03/25/2024 Refill [facility] MEDICINE [address] [place], [place] [phone] Claritza Leonard DO [address] [place], [place] [phone] Social History Tobacco Use Types Packs/Day Years [...] this encounter Care Teams Learning And Development Assistant Relationship Specialty Start Date End Date Marian Crook MD [address] [place] [phone] PCP - General Internal Medicine 09/12/23 10/24/24 Marian Crook MD [address] [place] [address] PCP - General Internal Medicine 10/25/24 documented as of this encounter
--- OUTSIDE RECORDS SUMMARY | 2025-01-21 07:56 | XMS_ITS | Encounter Summary ---
Author Organization [employer] Address [address] [place] [address] 7 [place] [address] Care Team Providers Care Plan Manager Name Role Phone Marian Crook MD Primary Care Provider + Marian Crook MD Primary Care Provider + Reason for Visit * Reason Onset Date Comments Med Refill 03/25/2024 Encounter Details Date Type Department Care Team (Late st Contact Info) Description 03/25/2024 Refill [facility] MEDICINE [address] [place], [place] [phone] Marian Crook MD [address] [place], [place] [phone] Social History Tobacco Use Types Packs/Day Years [...] documented as of this encounter Care Teams Plan Manager Relationship Specialty Start Date End Date Marian Crook MD [address] [place] [phone] PCP - General Internal Medicine 09/12/23 10/24/24 Marian Crook MD [address] [place] [address] PCP - General Internal Medicine 10/25/24 documented as of this encounter
--- OUTSIDE RECORDS SUMMARY | 2025-01-21 07:56 | XMS_ITS | Clinical Summary ---
Author Organization [employer] Address [address] [place] [address] 7t [place] [address] Care Team Providers Care Theatrical Scenic Designer Name Role Phone Marian Crook MD Primary [...] medication for now and to follow-up with matrix worker. Follow-up with me in 3 months Will need additional cardiac evaluation if renal insufficiency workup is negative Assessment & Plan (10/12/2024 2:20 PM EDT): Unclear if related to adrenal insufficiency, POTS,? Diabetes insipidus or other, we will refer to matrix worker. Started on low-dose midodrine, will slowly [...] related to patient's menorrhagia(she is followed by [facility]) + significant diuresis. Patient will have increase [...] I told her to reach out to entry level paralegal to help her write a letter so that housing give her some more time to get the letter from MH provider. She will res tart Effexor for anxiety and fu with me in 6m Encounters Date Type Department Care Team Description 01/20/2025 Orders Only GENERIC EXTERNAL DATA DEPARTMENT Provider, Generic External Data 01/20/[address] [facility] MEDICINE [address] [place] [address] Marian Crook MD Nurse Triage 01/20/[address] [facility] MEDICINE [address] [place] [address] Marian Crook MD 01/19/[address] [facility] MEDICINE [address] [place] [phone] Marian Crook MD 01/07/2025 9:00 AM EDT Office Visit [facility] MEDICINE [address] [place] [phone] Marian Crook MD Orthostatic hypotension (Primary Dx); Vertigo; Class 1 obesity due to excess calories with serious comorbidity and body mass index (BMI) of 32.0 to 32.9 in adult; Moderate persistent asthma without complication; Tinea corporis; Chronic low back pain without sciatica, unspecified back pain laterality; Dietary counseling; Exercise counseling 01/07/2025 Travel 01/06/[address] [facility] MEDICINE [address] [place] [address] Marian Crook MD CHART PREP 01/03/2025 9:00 AM EDT Office Visit [facility] OPTOMETRY [address] [place] [address] Ramon, Annette, OD Presbyopia (Primary Dx); Dermatochalasis of both upper eyelids; Dry eyes 01/03/2025 Travel 12/29/2024 Patient Outreach [facility] MEDICINE [address] [place] [address] Marian Crook MD Pre-visit Planning (SDOH screening completed on 06/23/2024) 12/13/[address] [facility] MEDICINE [address] [place] [address] [phone] Marian Crook MD 11/19/2024 3:30 PM EDT Office Visit [facility] [address] [place] [address] Annette Mitchell CNP Dizziness; Chronic midline low back pain, unspecified whether sciatica present 11/19/2024 Travel 11/19/2024 Telephone [facility] [address] [place] [address] Marian Crook MD chart prep 11/18/[address] [facility] MEDICINE [address] [place] [address] Annette Mitchell CNP Dizziness 11/11/2024 Results Follow-Up [address] [address] Marian Crook MD US Retroperitoneal Complete 11/08/2024 Orders Only [facility] External Provider, [facility] 11/04/2024 3:00 PM EDT Office Visit [address] [address] Annette Mitchell CNP Dizziness (Primary Dx) 11/04/2024 Travel 11/03/[address] [facility] MEDICINE [address] [place] [phone] Karina Corley MA Chart Prep 11/03/[address] [address] Marian Crook MD Nurse Triage 10/28/[address] [facility] WALK-IN CENTER [address] [place] [phone] Stefan Meza MD 10/26/2024 2:30 PM EDT Clinical Support [facility] MEDICINE [address] [place] [address] Lisa Allison RN Orthostatic hypotension [I95.1] 10/26/2024 [...] PM EDT Narrative 01/20/2025 6:35 PM EDT [address] [address] Ultrasound Report Signed Patient: Corina Nielsen MR#: [id number] : 1975 Acct:[id number] Age/Sex: 49 / F ADM Date: 01/20/25 Loc: HO.ED Attending Dr: Ordering Physician: Devin Shah Date of Service: 01/20/25 Procedure(s): US venous duplex LE RT Accession Number(s): [id number] cc: Devin Shah; Marian Crook MD Reason [...] in OV> 01/20/251834 DD/ 34 TD/TT: 01/20/251834 Signalman: Procedure Note Donotuseinterpreter, Image - 01/20/[address] [address] Ultrasound Report Signed Patient: Baljit NielsenR#: [id number] : 1975Acct:[id number] Age/Sex: 49 / FADM Date: 01/20/25 Loc: .ED Attending Dr: Ordering Physician: Devin Shah Date of Service: 01/20/25 Procedure(s): US venous duplex LE RT Accession Number(s): [id number] cc: Devin Shah; Marian Crook MD Reason [...] in OV> 01/20/251834 DD/ 34 TD/TT: 01/20/251834 Signalman: us [facility] External Provider IMG US PROCEDURES Final Result * XR Foot 3+ Views Right (01/20/2025 3:20 PM EDT) Anatomical Region Laterality Modality Lower Extremities, Foot Right Radiogra phic Imaging 01/20/2025 3:20 PM EDT Narrative 01/20/2025 3:41 PM EDT [address] [address] XRay Report Signed Patient: Corina Nielsen MR#: [id number] : 1975 Acct:[id number] Age/Sex: 49 / F ADM Date: 01/20/25 Loc: .ED Attending Dr: Ordering Physician: Devin Shah Date of Service: 01/20/25 Procedure(s): XR foot RT min 3V Accession Number(s): [id number] cc: Devin Shah; Marian Crook MD Reason [...] OV> 01/20/25 1539 DD/ 152 TD/TT: 01/20/251529 Signalman: MARILYN Procedure Note Donotnirmalainterpreter, Image - 01/20/[address] [address] XRay Report Signed Patient: Yarelis Nielsen#: [id number] : 1975Acct:[id number] Age/Sex: 49 / FADM Date: 01/20/25 Loc: HO.ED Attending Dr: Ordering Physician: Devin Shah Date of Service: 01/20/25 Procedure(s): XR foot RT min 3V Accession Number(s): [id number] cc: Devin Shah; Marian Crook MD Reason [...] OV> 01/20/25 1539 DD/ 1520 TD/TT: 01/20/251529 Signalman: MARILYN us [facility] External Provider IMG XR PROCEDURES Final Result * XR Ankle 3+ Views Right (01/20/2025 3:20 PM EDT) Anatomical Region Laterality Modality Lower Extremities, Ankle Right Radiogr aphic Imaging 01/20/2025 3:20 PM EDT Narrative 01/20/2025 3:[address] [address] XRay Report Signed Patient: Corina Nielsen MR#: [id number] : 1975 Acct:[id number] Age/Sex: 49 / F ADM Date: 01/20/25 Loc: HO.ED Attending Dr: Ordering Physician: Devin Shah Date of Service: 01/20/25 Procedure(s): XR ankle RT min 3V Accession Number(s): [id number] cc: Devin Shah; Marian Crook MD Reason [...] 01/20/25 1539 DD/ 1520 TD/TT: 01/20/25 1530 Signalman: MARILYN Procedure Note Donotuseinterpreter, Image - 01/20/[address] [address] XRay Report Signed Patient: Baljit NielsenR#: [id number] : 1975Acct:[id number] Age/Sex: 49 / FADM Date: 01/20/25 Loc: HO.ED Attending Dr: Ordering Physician: Devin Shah Date of Service: 01/20/25 Procedure(s): XR ankle RT min 3V Accession Number(s): [id number] cc: Devin Shah; Marian Crook MD Reason [...] 01/20/25 1539 DD/ 152 TD/TT: 01/20/25 153 Signalman: MARILYN Authorjong Provider Result Type Result Stat [facility] External Provider IMG XR PROCEDURES Final Result * CBC auto differential (01/20/2025 3:19 PM EDT) White Blood Count 7.1 4.8 - 10.8 X10*3/uL [facility] Red Blood Count 4.23 4.20 - 5.50 X10*6/uL [facility] Hemoglobin 13.0 12.0 - 16.0 g/dl [facility] Hematocrit 39.5 37.0 - 47.0 % [facility] Mean Corpuscular Volume 93.4 80.0 - 98.0 fL [facility] Mean Corpuscular Hemoglobin 30.7 27.0 - 33.0 pg [facility] Mean Corpuscular HGB Conc 32.9 31.0 - 35.0 g/dl [facility] Red Cell Distribution Width 12.5 11.0 - 16.0 % [facility] Platelet Count 247 160 - 400 X10*3/uL [facility] Mean Platelet Volume 10.6 9.4 - 12.3 fL [facility] Neutrophils Percent Auto 63.7 45 - 73 % [facility] Imm Gran Pct Auto 0.3 0.0 - 0.4 % [facility] Lymphocytes Percent Auto 25.2 20 - 40 % [facility] Monocytes Percent Auto 6.3 2 - 11 % [facility] Eosinophils Percent Auto 3.9 0 - 4 % [facility] Basophils Percent Auto 0.6 0 - 2 % [facility] NRBC Pct Auto 0.0 0.0 - 0.2 /100WBC [facility] Neutrophils Absolute Auto 4.5 2.0 - 8.3 x10*3/uL [facility] Imm Gran Abs Auto 0.02 0.00 - 0.03 X10*3/uL [facility] Lymphocytes Absolute Auto 1.8 1.2 - 4.9 X10*3/uL [facility] Monocytes Absolute Auto 0.5 0.1 - 1.2 X10*3/uL [facility] Eosinophils Absolute Auto 0.3 0.0 - 0.4 X10*3/uL [facility] Basophils Absolute Auto 0.0 0.0 - 0.2 X10*3/uL [facility] NRBC Abs Auto 0.000 0.0 - 0.012 X10*3/uL [facility] 01/20/2025 3:19 PM EDT 01/20/2025 3:22 PM EDT us Generic External Data Provider LAB BLOOD ORDERAB LES Final Result Performing Organization Address City/[facility]/ZIP Co de Phone Number [facility] [address] [place] [phone] * Partial Thromboplastin Time, Activated (APTT) (01/20/2025 3:19 PM EDT) Partial Thromboplastin Time 30.6 26.7 - 34.1 SEC [facility] 01/20/2025 3:19 PM EDT 01/20/2025 3:22 PM EDT us Generic External Data Provider LAB BLOOD ORDERAB LES Final Result Performing Organization Address City/[facility]/ZIP Co de Phone Number [facility] [address] [place] [phone] * Prothrombin Time-INR (01/20/2025 3:19 PM EDT) Prothrombin Time 11.9 10.9 - 12.4 SEC [facility] INTERNATIONAL NORM RATIO 1.0 0.9 - 1.1 [facility] Comment:INTERNATIONAL NORMAL IZED RATIO (INR) [...] [facility] Co de Phone Number [facility] [address] [place] [phone] * (ABNORMAL) Comprehensive Metabolic Panel (01/20/2025 3:19 PM EDT) Pathologist [facility] Sodium 141 135 - 145 mmol/L [facility] Potassium 4.1 3.3 - 5.1 mmol/L [facility] Chloride 110(H) 96 - 108 mmol/L [facility] Carbon Dioxide 27 22 - 29 mmol/L [facility] Anion Gap 8(L) 12 - 20 [facility] Urea Nitrogen (BUN) 16 9 - 16 mg/dL [facility] Creatinine, Serum 0.91 0.5 - 1.4 mg/dL [facility] Creatinine Clr Calc Pharmacy 74.5 [facility] Comment:Provided height and weight: 160.02 cm,79.379 kg.eGFR (calculated from the MDRD study equation) and eCrCl(calculated from the Cockcroft-Gault equation) are based ondifferent parameters and may not yield comparable results.If eCrCl result is absurd, please check patient'sheight/weight. Estimated Glomerular Filt Rate >60 [facility] Comment:Chronic Kidney Disea se: Estimated GFR < 60 mL/min/1.58e2Lrbzul Kidney Disease: Estimated GFR < 15 mL/min/1.73m2 Glucose 91 60 - 115 mg/dL [facility] Calcium 8.9 8.4 - 10.2 mg/dL [facility] Bilirubin, Total 0.2 0.0 - 1.0 mg/dL [facility] Aspartate Amino Transferase 25 5 - 31 U/L [facility] Alanine Aminotransferase 18 0 - 31 U/L [facility] Total Protein 7.2 6.5 - 8.0 g/dL [facility] Albumin Level 4.3 3.5 - 5.0 g/dL [facility] Alkaline Phosphatase 69 39 - 117 U/L [facility] 01/20/2025 3:19 PM EDT 01/20/2025 3:22 PM EDT us Generic External Data Provider LAB BLOOD ORDERAB LES Final Result Performing Organization Address City/State/[facility] Co de Phone Number [facility] [address] [place] [phone] * US Retroperitoneal Complete (11/08/2024 3:30 PM EDT) Anatomical Region Laterality Modality Ultrasound 11/08/2024 3:30 PM EDT Narrative 11/09/2024 7:01 AM EDT [address] [address] Ultrasound Report Signed Patient: Corina Nielsen MR#: [id number] : 1975 Acct:[id number] Age/Sex: 49 / F ADM Date: 11/08/24 Loc: HO. Attending Dr: Shelly PATEL Ordering Physician: Shelly Bo Date of Service: 11/08/24 Procedure(s): US retroperitoneal comp Accession Number(s): [id number] cc: Marian Crook MD; Shelly Bo SAFEMAKER-BC EXAMINATION: US RETROPERITONEUM HISTORY: R35.0 - Frequency [...] 11/09/24 0658 DD/ 1530 TD/TT: 11/08/24 1600 Signalman: Procedure Note Donotuseinterpreter, Image - 11/09/2024 [place] [address] Ultrasound Report Signed Patient: Nika NielsenMagdiel#: [id number] : 1975Acct:[id number] Age/Sex: 49 / FADM Date: 11/08/24 Loc: HO.US Attending Dr: Shelly PATEL Ordering Physician: Shelly Bo Date of Service: 11/08/24 Procedure(s): US retroperitoneal comp Accession Number(s): [id number] cc: Marian Crook MD; Shelly Bo EXAMINATION: [...] 11/09/24 0658 DD/ 1530 TD/TT: 11/08/24 1600 Signalman: [facility] External Provider IMG US PROCEDURES Edited Result - Final * HPV DNA, Low/High Risk (05/05/2024 10:22 AM EST) HPV High Risk Negative Negative [facility] HPV Genotype 16 Negative Negative [facility] HPV Genotype 18 Negative Negative [facility] Comment:HPV testing performe d at [facility] (CLIA#[id number]), [address] [place] [address].Testing for HPV was performed using the [employer] KALI 6800system. The presence of HPV in [...] [facility] Co de Phone Number [facility] [address] [place] [phone] * Pap Smear (05/05/2024 10:22 AM EST) 05/05/2024 10:2 2 AM EST 05/06/2024 6:10 AM EST Narrative [facility] - 05/11/2024 9:16 AM EST ----- ------- Name: Corina Nielsen Age/Sex: 49/F : 1975 Unit#: [id number] Attend Dr: Pj Posadas MD Re05/05/24 Status: DEP REF Location: [facility] Disch: ----- ------- SPEC : [id number] RECD: 05/06/24 STATUS: YESSI CARDENAS NUM: [id number] LAURA: 05/05/24-[address] [facility] [address]: Pj Posadas MD ENTERED: 05/06/24 [...] Received ThinPrep-Cervical Copies To: Marian Crook MD [address] [address] Pj Posadas MD [facility] [address] [place] [address] [address] [place] [address] ----- ------- Signed (signature on file) SCARLET Hernandez (ASCP) 05/11/24 0916 ----- ------- END OF REPORT Generic External Data Provider LAB CYTOLOGY ORDE RABLES Final Result Performing Organization Address [facility] Co de Phone Number [facility] [address] [place] [phone] * Hepatitis C Ab (03/27/2024 10:19 AM EST) [facility] Hepatitis C Antibody Nonreactive Nonreactive [facility] Comment:Antibodies to HCV no t detected; does not exclude early acuteHCV infection. 03/27/2024 10:1 9 AM EST 03/27/2024 10:19 AM EST Generic External Data Provider LAB BLOOD ORDERAB LES Final Result Performing Organization Address [facility] de Phone Number [facility] [address] [place] [phone] * HIV-1/2 Antigen and Antibodies, Fourth Generation, with Reflexes (03/27/2024 10:19 AM EST) Pathologist [facility] HIV AB/AG Nonreactive Nonreactive [facility] Comment:HIV-1 p24 Ag and/or HIV-1/HIV-2 Ab not detected.A test result that is nonreactive does not exclude thepossibility of exposure to or infection with HIV-1 and/orHIV-2. Nonreactive results in this assay for individualswith prior exposure to HIV-1 and/or HIV-2 may be due toantigen and antibody levels that are below the limit ofdetection of this assay.The [employer] HIV Ag/Ab Combo assay result andsupplemental assay [...] [facility] Co de Phone Number [facility] [address] [place] [phone] * Cologuard?? colon cancer screening (02/02/2024 9:15 AM EST) Cologuard Result Negative Negative 02/08/20 2:05 AM EST [facility] (CLIA #:[id number]) Comment: NEGATIVE TEST RESULT. A negative Cologuard [...] Gonzalez et al, N Engl J Med 2014;370(14):8100-9294) The normal value (reference range) for this assay is negative. COLOGUARD RE-SCREENING RECOMMENDATION: Periodic colorectal cancer screening is an important part of preventive healthcare for asymptomatic individuals at average risk for colorectal cancer. Following a negative Cologuard result, the [place] [employer] and U.S. Multi-Society Task Force screening guidelines recommend a Cologuard re-screening interval of 3 years. References: [place] [employer] Guideline for Colorectal Cancer Screening: https://www.cancer.org/cancer/hcvks-glubtr-ucexkm/tnqearlyx-etuxxnqgy-txyteqx/ac s-rec ommendations.html.; Hector DK, Julio Cesar PEÑA, Dominitz JK, Colorectal Cancer Screening: Recommendations for Physicians and Patients from the U.S. Multi-Society Task Force on Colorectal Cancer Screening , Am J Gastroenterology 2017; 112:7434-3357. TEST DESCRIPTION: Composite algorithmic analysis of stool [...] Warren. et al, N Engl J Med 2014;370(14):7481-3790.) Cologuard may produce a false negative or false positive result (no colorectal cancer or precancerous polyp present at colonoscopy follow up). A negative Cologuard test result does not guarantee the absence of CRC or advanced adenoma (pre-cancer). The current Cologuard screening interval is every 3 years. ([place] [employer] and U.S. Multi-Society Task Force). Cologuard performance data in a 10,000 patient pivotal study using colonoscopy as the reference method can be accessed at the following location: www.[employer]/results. Additional description of the Cologuard test process, warnings and precautions can be found at www.[employer].com. Stool specimen (specimen) Rectal contents / Unknown 02/02/2024 9:15 AM EST 02/03/2024 10:52 AM EST Marian Crook MD LAB MOLECULAR DIAGNOSTIC S ORDERABLES Final Result [facility] (CLIA #:[id number]) [address] [place] [address], * BI Mammogram Screening Tomosynthesis Bilateral (12/05/2023 3:30 PM EDT) Anatomical Region Laterality Modality Breast Bilateral Mammography 12/05/2023 3:30 PM EDT Narrative 12/19/2023 8:58 AM EDT [facility] [address] [place] [address] Mammography Report Signed Patient: Corina Nielsen MR#: [id number] : 1975 Acct:[id number] Age/Sex: 48 / F ADM Date: 12/05/23 Loc: .MAMMO Attending Dr: Marian Crook MD Ordering Physician: Marian Crook MD Results: 1Ne gative Date of Service: 12/05/23 Follow Up: 1 Year From [facility] Mammogram Procedure(s): MM tomosynthesis screening BI Accession Number(s): [id number] cc: Marian Crook MD EXAMINATION: MM SCREENING [...] 12/19/23 0855 DD/ 1530 TD/TT: 12/05/23 1540 Signalman: Procedure Note Donotuseinterpreter, Image - 12/19/2023 [facility] [address] [place], [place] [address] Mammography Report Signed Patient: Baljit NielsenR#: [id number] : 1975Acct:[id number] Age/Sex: 48 / FADM Date: 12/05/23 Loc: HO.MAMMO Attending Dr: Marian Crook MD Ordering Physician: Marian Crook MDResults: 1Ne gative Date of Service: 12/05/23Follow Up: 1 Year From Orig inal Mammogram Procedure(s): MM tomosynthesis screening BI Accession Number(s): [id number] cc: Marian Crook MD EXAMINATION: MM SCREENING [...] 12/19/23 0855 DD/ 1530 TD/TT: 12/05/23 1540 Signalman: Marian Crook MD IMG BI PROCEDURES Final [...] LDL-C. Camacho SS et al. TAYO. 2013;310(19): 2830-0868 (http://education.[employer] ([employer]/faq/FBF038) Non-HDL Cholesterol 100 <130 mg/dL (calc) [facility] Comment: For patients with diabetes plus 1 major ASCVD risk factor, treating to a non-HDL-C goal of <100 mg/dL (LDL-C of <70 mg/dL) is considered a therapeutic option. Triglycerides 56 <150 mg/dL [facility] 10/17/2021 2:37 PM EDT us Irma Arteaga NP LAB BLOOD ORDERABLES Final Resu lt [facility] [address] from Last 3 Months or Most Recently Relevant to Health Maintenance Insurance [facility] 3 Care Teams Theatrical Scenic Designer Relationship Specialty Start Date End Date Marian Crook MD [address] [place] [phone] PCP - General Internal Medicine 10/25/24
--- OUTSIDE RECORDS SUMMARY | 2025-01-21 07:56 | XMS_ITS | Encounter Summary ---
Author Organization [employer] Address 75 [facility] 7 [place] [address] Care Team Providers Care Observer Electrical Prospecting Name Role Phone Marian Crook MD Primary Care Provider + Marian Crook MD Primary Care Provider + Reason for Visit * Reason Onset Date Comments Med Refill 03/25/2024 Encounter Details Date Type Department Care Team (Late st Contact Info) Description 03/25/2024 Refill [facility] MEDICINE 230 [place], [place] [phone] Marian Crook MD 230 [place], [place] [phone] Moderate persistent asthma without complication Social History [...] documented as of this encounter Care Teams Observer Electrical Prospecting Relationship Specialty Start Date End Date Marian Crook MD 230 [place] [address] PCP - General Internal Medicine 09/12/23 10/24/24 Marian Crook MD 230 [place] [address] PCP - General Internal Medicine 10/25/24 documented as of this encounter
--- OUTSIDE RECORDS SUMMARY | 2025-01-21 07:56 | XMS_ITS | Encounter Summary ---
Author Organization [employer] Address [address] [place] [address] 7 [place] [address] Care Team Providers Care Purification Operator Name Role Phone Marian Crook MD Primary Care Provider + Marian Crook MD Primary Care Provider + Reason for Visit * Reason Onset Date Comments Med Refill 03/25/2024 Encounter Details Date Type Department Care Team (Late st Contact Info) Description 03/25/2024 Refill [facility] MEDICINE 230 [place], [place] [phone] Claritza Leonard DO 230 [place], [place] [phone] Social History Tobacco Use Types Packs/Day Years [...] documented as of this encounter Care Teams Purification Operator Relationship Specialty Start Date End Date Marian Crook MD [address] [place] [address] PCP - General Internal Medicine 09/12/23 10/24/24 Marian Crook MD 230 [place] [address] PCP - General Internal Medicine 10/25/24 documented as of this encounter
--- OUTSIDE RECORDS SUMMARY | 2025-01-21 07:57 | XMS_ITS | Encounter Summary ---
Author Organization [employer] Address 75 [facility] 7 [place] [address] Care Team Providers Care Business Project Analyst Name Role Phone Marian Crook MD Primary Care Provider + Marian Crook MD Primary Care Provider + Reason for Visit * Reason Onset Date Comments Med Refill 06/02/2024 Encounter Details Date Type Department Care Team ([facility] st Contact Info) Description 06/02/2024 Telephone [facility] MEDICINE 230 [place], [place] [phone] Marian Crook MD 230 [place], [place] [phone] Med Refill Social History Tobacco Use Types [...] as of this encounter Care Teams Business Project Analyst Relationship Specialty Start Date End Date Marian Crook MD 230 [place] [address] PCP - General Internal Medicine 09/12/23 10/24/24 Marian Crook MD 230 [place] [address] PCP - General Internal Medicine 10/25/24 documented as of this encounter
--- OUTSIDE RECORDS SUMMARY | 2025-01-21 07:57 | XMS_ITS | Encounter Summary ---
Author Organization [employer] Address 75 [facility] 7 [place] [address] Care Team Providers Care Court Assistant Name Role Phone Marian Crook MD Primary Care Provider + Reason for Visit * Reason Comments Med Refill Encounter Details Date Type Department Care Team ([facility] st Contact Info) Description 01/20/2025 Refill [facility] MEDICINE 230 [place], [place] [phone] Marian Crook MD 230 [place], [place] [phone] Social History Tobacco Use Types Packs/Day Years [...] documented as of this encounter Care Teams Court Assistant Relationship Specialty Start Date End Date Marian Crook MD [address] [place] [address] PCP - General Internal Medicine 10/25/24 documented as of this encounter
--- OUTSIDE RECORDS SUMMARY | 2025-01-21 07:57 | XMS_ITS | Encounter Summary ---
Author Organization [employer] Address [address] [place] [address] 7 [place] [address] Care Team Providers Care Hospitality Services Manager Name Role Phone Marian Crook MD Primary Care Provider + Marian Crook MD Primary Care Provider + Reason for Visit * Reason Comments Med Refill Encounter Details Date Type Department Care Team ([facility] st Contact Info) Description 06/05/2024 Refill [facility] MEDICINE 230 [place] [address] Marian Crook MD 230 [place], [place] [phone] Social History Tobacco Use Types Packs/Day Years [...] documented as of this encounter Care Teams Hospitality Services Manager Relationship Specialty Start Date End Date Marian Crook MD 230 [place] [address] PCP - General Internal Medicine 09/12/23 10/24/24 Marian Crook MD 230 [place] [address] PCP - General Internal Medicine 10/25/24 documented as of this encounter
--- OUTSIDE RECORDS SUMMARY | 2025-01-21 07:57 | XMS_ITS | Encounter Summary ---
Author Organization [employer] Address 75 [facility] 7t [place] [address] Care Team Providers Care Manufacturing Controls Engineer Name Role Phone Marian Crook MD [...] PM EDT Narrative 01/20/2025 6:35 PM EDT [address] [address] Ultrasound Report Signed Patient: Corina Nielsen MR#: [id number] : 1975 Acct:[id number] Age/Sex: 49 / F ADM Date: 01/20/25 Loc: HO.ED Attending Dr: Ordering Physician: Devin Shah Date of Service: 01/20/25 Procedure(s): US venous duplex LE RT Accession Number(s): [id number] cc: Devin Shah; Marian Crook MD Reason [...] in OV> 01/20/251834 DD/ 34 TD/TT: 01/20/251834 Purification Operator Helper: Procedure Note Donsundeepter, Image - 01/20/[address] [address] Ultrasound Report Signed Patient: Baljit NielsenR#: [id number] : 1975Acct:[id number] Age/Sex: 49 / FADM Date: 01/20/25 Loc: HO.ED Attending Dr: Ordering Physician: Devin Shah Date of Service: 01/20/25 Procedure(s): US venous duplex LE RT Accession Number(s): [id number] cc: Devin Shah; Marian Crook MD Reason [...] in OV> 01/20/251834 DD/ 34 TD/TT: 01/20/251834 Purification Operator Helper: us [facility] External Provider IMG US PROCEDURES Final Result * XR Ankle 3+ Views Right (01/20/2025 3:20 PM EDT) Anatomical Region Laterality Modality Lower Extremities, Ankle Right Radiogr aphic Imaging 01/20/2025 3:20 PM EDT Narrative 01/20/2025 3:42 PM EDT [address] [address] XRay Report Signed Patient: Corina Nielsen MR#: [id number] : 1975 Acct:[id number] Age/Sex: 49 / F ADM Date: 01/20/25 Loc: .ED Attending Dr: Ordering Physician: Devin Shah Date of Service: 01/20/25 Procedure(s): XR ankle RT min 3V Accession Number(s): [id number] cc: Devin Shah; Marian Crook MD Reason [...] 01/20/25 1539 DD/ 1520 TD/TT: 01/20/25 1530 Purification Operator Helper: MARILYN Procedure Note Donotuseinterpreter, Image - 01/20/[address] [place] [address] XRay Report Signed Patient: Yarelis Nielsen#: [id number] : 1975Acct:[id number] Age/Sex: 49 / FADM Date: 01/20/25 Loc: HO.ED Attending Dr: Ordering Physician: Devin Shah Date of Service: 01/20/25 Procedure(s): XR ankle RT min 3V Accession Number(s): [id number] cc: Devin Shah; Marian Crook MD Reason [...] 01/20/25 1539 DD/ 1520 TD/TT: 01/20/25 1530 Purification Operator Helper: MARILYN us [facility] External Provider IMG XR PROCEDURES Final Result * XR Foot 3+ Views Right (01/20/2025 3:20 PM EDT) Anatomical Region Laterality Modality Lower Extremities, Foot Right Radiogra phic Imaging 01/20/2025 3:2 0 PM EDT Narrative 01/20/2025 3:41 PM EDT [address] [place] [address] XRay Report Signed Patient: Corina Nielsen MR#: [id number] : 1975 Acct:[id number] Age/Sex: 49 / F ADM Date: 01/20/25 Loc: HO.ED Attending Dr: Ordering Physician: Devin Shah Date of Service: 01/20/25 Procedure(s): XR foot RT min 3V Accession Number(s): [id number] cc: Devin Shah; Marian Crook MD Reason [...] 01/20/25 1539 DD/ 1520 TD/TT: 01/20/25 1530 Purification Operator Helper: MARILYN Procedure Note Donotuseinterpreter, Image - 01/20/[address] [address] XRay Report Signed Patient: Baljit NielsenR#: [id number] : 1975Acct:[id number] Age/Sex: 49 / FADM Date: 01/20/25 Loc: HO.ED Attending Dr: Ordering Physician: Devin Shah Date of Service: 01/20/25 Procedure(s): XR foot RT min 3V Accession Number(s): [id number] cc: Devin Shah; Marian Crook MD Reason [...] 01/20/25 1539 DD/ 1520 TD/TT: 01/20/25 1530 Purification Operator Helper: MARILYN [facility] External Provider IMG XR PROCEDURES Final Result * (ABNORMAL) Comprehensive Metabolic Panel (01/20/2025 3:19 PM EDT) Sodium 141 135 - 145 mmol/L [facility] Potassium 4.1 3.3 - 5.1 mmol/L [facility] Chloride 110(H) 96 - 108 mmol/L [facility] Carbon Dioxide 27 22 - 29 mmol/L [facility] Anion Gap 8(L) 12 - 20 [facility] Urea Nitrogen (BUN) 16 9 - 16 mg/dL [facility] Creatinine, Serum 0.91 0.5 - 1.4 mg/dL [facility] Creatinine Clr Calc Pharmacy 74.5 [facility] Comment:Provided height and weight: 160.02 cm,79.379 kg.eGFR (calculated from the MDRD study equation) and eCrCl(calculated from the Cockcroft-Gault equation) are based ondifferent parameters and may not yield comparable results.If eCrCl result is absurd, please check patient'sheight/weight. Estimated Glomerular Filt Rate >60 [facility] Comment:Chronic Kidney Disea se: Estimated GFR < 60 mL/min/1.10i7Zygzzu Kidney Disease: Estimated GFR < 15 mL/min/1.73m2 Glucose 91 60 - 115 mg/dL [facility] Calcium 8.9 8.4 - 10.2 mg/dL [facility] Bilirubin, Total 0.2 0.0 - 1.0 mg/dL [facility] Aspartate Amino Transferase 25 5 - 31 U/L [facility] Alanine Aminotransferase 18 0 - 31 U/L [facility] Total Protein 7.2 6.5 - 8.0 g/dL [facility] Albumin Level 4.3 3.5 - 5.0 g/dL [facility] Alkaline Phosphatase 69 39 - 117 U/L [facility] 01/20/2025 3:19 PM EDT 01/20/2025 3:22 PM EDT Generic External Data Provider LAB BLOOD ORDERAB LES Final Result Performing Organization Address [facility] Co de Phone Number [facility] [address] [place] [phone] * Partial Thromboplastin Time, Activated (APTT) (01/20/2025 3:19 PM EDT) Partial Thromboplastin Time 30.6 26.7 - 34.1 SEC [facility] 01/20/2025 3:19 PM EDT 01/20/2025 3:22 PM EDT Generic External Data Provider LAB BLOOD ORDERAB LES Final Result Performing Organization Address [facility] Co de Phone Number [facility] [address] [place] [phone] * Prothrombin Time-INR (01/20/2025 3:19 PM EDT) Prothrombin Time 11.9 10.9 - 12.4 SEC [facility] INTERNATIONAL NORM RATIO 1.0 0.9 - 1.1 [facility] Comment:INTERNATIONAL NORMAL IZED RATIO (INR) [...] Provider LAB BLOOD ORDERAB LES Final Result [facility] [address] [place] [address] [phone] * CBC auto differential (01/20/2025 3:19 PM EDT) White Blood Count 7.1 4.8 - 10.8 X10*3/uL [facility] Red Blood Count 4.23 4.20 - 5.50 X10*6/uL [facility] Hemoglobin 13.0 12.0 - 16.0 g/dl [facility] Hematocrit 39.5 37.0 - 47.0 % [facility] Mean Corpuscular Volume 93.4 80.0 - 98.0 fL [facility] Mean Corpuscular Hemoglobin 30.7 27.0 - 33.0 pg [facility] Mean Corpuscular HGB Conc 32.9 31.0 - 35.0 g/dl [facility] Red Cell Distribution Width 12.5 11.0 - 16.0 % [facility] Platelet Count 247 160 - 400 X10*3/uL [facility] Mean Platelet Volume 10.6 9.4 - 12.3 fL [facility] Neutrophils Percent Auto 63.7 45 - 73 % [facility] Imm Gran Pct Auto 0.3 0.0 - 0.4 % [facility] Lymphocytes Percent Auto 25.2 20 - 40 % [facility] Monocytes Percent Auto 6.3 2 - 11 % [facility] Eosinophils Percent Auto 3.9 0 - 4 % [facility] Basophils Percent Auto 0.6 0 - 2 % [facility] NRBC Pct Auto 0.0 0.0 - 0.2 /100WBC [facility] Neutrophils Absolute Auto 4.5 2.0 - 8.3 x10*3/uL [facility] Imm Gran Abs Auto 0.02 0.00 - 0.03 X10*3/uL [facility] Lymphocytes Absolute Auto 1.8 1.2 - 4.9 X10*3/uL [facility] Monocytes Absolute Auto 0.5 0.1 - 1.2 X10*3/uL [facility] Eosinophils Absolute Auto 0.3 0.0 - 0.4 X10*3/uL [facility] Basophils Absolute Auto 0.0 0.0 - 0.2 X10*3/uL [facility] NRBC Abs Auto 0.000 0.0 - 0.012 X10*3/uL [facility] 01/20/2025 3:19 PM EDT 01/20/2025 3:22 PM EDT us Generic External Data Provider LAB BLOOD ORDERAB LES Final Result [facility] [address] [place] [address] [phone] documented in this encounter Visit Diagnoses Not on filedocumented in this encounter Additional Health Concerns Assessment Noted Time PHQ-9 Depression Total Score: 13 10/12/ 025 9:26 AM EDT documented as of this encounter Care Teams Manufacturing Controls Engineer Relationship Specialty Start Date End Date Marian Crook MD [address] [place] [address] PCP - General Internal Medicine 10/25/24 documented as of this encounter
--- OUTSIDE RECORDS SUMMARY | 2025-01-21 07:57 | XMS_ITS | Encounter Summary ---
Author Organization [employer] Address [address] [place] [address] 7 [place] [address] Care Team Providers Care Linderman Operator Name Role Phone Alisha Hook Primary Care Provider [phone] Marian Crook MD Primary Care Provider + Marian Crook MD Primary Care Provider + Reason for Visit * Reason Onset Date Comments Nurse Triage 11/18/2022 Encounter Details Date Type Department Care Team (Late st Contact Info) Description 11/18/2022 Telephone [facility] MEDICINE 230 [place], [place] [phone] [place] [facility] 230 [place], [place] [phone] Nurse Triage Social History Tobacco Use Types [...] documented as of this encounter Care Teams Linderman Operator Relationship Specialty Start Date End Date [facility] 230 [place] [phone] PCP - General Family Medicine 11/14/21 09/11/23 Marian Crook MD 230 [place] [address] PCP - General Internal Medicine 09/12/23 10/24/24 Marian Crook MD [address] [place] [address] PCP - General Internal Medicine 10/25/24 documented as of this encounter"
--- OUTSIDE RECORDS SUMMARY | 2025-01-21 07:57 | XMS_ITS | Clinical Summary ---
Author Organization [facility] Address [address] [place] [address] Phone Care Team Providers Care State Trooper Name Role Phone Marian Crook MD Primary Care Provider [phone] Encounters Date Type Department Care Team Description 12/21/2024 Telephone [facility] Cardiology [facility] [address] [place] [address] Marian Crook MD 12/21/2024 Telephone [place] [address] [place] [phone] Marian Crook MD from Last 3 Months [...] patient's age to complete this topic Insurance [facility] Care Teams State Trooper Relationship Specialty Start Date End Date Marian Crook MD [address] [phone] PCP - General Internal Medicine 07/08/24
--- OUTSIDE RECORDS SUMMARY | 2025-01-21 07:57 | XMS_ITS | Encounter Summary ---
Author Organization [employer] Address 75 [facility] 7 [place] [address] Care Team Providers Care Glass Cleaning Machine Tender Name Role Phone Marian Crook MD Primary Care Provider + Reason for Visit * Reason Comments Med Refill Encounter Details Date Type Department Care Team (Late st Contact Info) Description 11/18/2024 Refill [facility] MEDICINE 230 [place] [address] Annette Mitchell, FINISH CARPENTER [address] [place] [address] Dizziness Social History Tobacco Use Types Packs/Day [...] documented as of this encounter Care Teams Glass Cleaning Machine Tender Relationship Specialty Start Date End Date Marian Crook MD [address] [place] [address] PCP - General Internal Medicine 10/25/24 documented as of this encounter
--- OUTSIDE RECORDS SUMMARY | 2025-01-21 07:57 | XMS_ITS | Encounter Summary ---
Author Organization [employer] Address 75 [facility] 7 [place] [address] Care Team Providers Care Head Pumper Name Role Phone Marian Crook MD Primary Care Provider + Reason for Visit * Reason Onset Date Comments Nurse Triage 01/20/2025 Encounter Details Date Type Department Care Team ([facility] st Contact Info) Description 01/20/2025 Telephone [facility] MEDICINE 230 [place], [place] [phone] Marian Crook MD 230 [place], [place] [phone] Nurse Triage Social History Tobacco Use Types [...] or cellulitis. Pt states will go to [facility] ED in ~2hrs as she is currently [...] caller accepted this outcome. Contact pt at [phone] (hebrew) documented in this encounter Plan of Treatment Not on file documented as of this encounter Visit Diagnoses Not on filedocumented in this encounter Additional Health Concerns Assessment Noted Time PHQ-9 Depression Total Score: 13 025 9:26 AM EDT documented as of this encounter Care Teams Head Pumper Relationship Specialty Start Date End Date Marian Crook MD [address] [place] [address] PCP - General Internal Medicine 10/25/24 documented as of this encounter
--- OUTSIDE RECORDS SUMMARY | 2025-01-21 07:57 | XMS_ITS | Encounter Summary ---
Author Organization [employer] Address 75 [facility] 7 [place] [address] Care Team Providers Care Transport Aircrewman Name Role Phone Marian Crook MD Primary Care Provider + Marian Crook MD Primary Care Provider + Reason for Visit * Reason Onset Date Comments FYI 08/03/2024 Encounter Details Date Type Department Care Team ([facility] st Contact Info) Description 08/03/2024 Telephone [facility] MEDICINE 230 [place], [place] [phone] Marian Crook MD 230 [place], [place] [phone] FYI Social History Tobacco Use Types Packs/Day [...] she has an upcoming visit with : [facility] Radiology 09/28 1pm . Should be at registration by 12:[address] [place] [address] documented in this encounter Plan of Treatment Not on file documented as of this encounter Visit Diagnoses Not on filedocumented in this encounter Additional Health Concerns Assessment Noted Time PHQ-9 Depression Total Score: 22 024 2:02 PM EDT documented as of this encounter Care Teams Transport Aircrewman Relationship Specialty Start Date End Date Marian Crook MD 230 [place] [address] PCP - General Internal Medicine 09/12/23 10/24/24 Marian Crook MD 230 [place] [address] PCP - General Internal Medicine 10/25/24 documented as of this encounter
--- OUTSIDE RECORDS SUMMARY | 2025-01-21 07:57 | XMS_ITS | Encounter Summary ---
Author Organization [employer] Address [address] [place] [address] 7 [place] [address] Care Team Providers Care Department Secretary Name Role Phone Marian Crook MD Primary Care Provider + Marian Crook MD Primary Care Provider + Reason for Visit * Reason Comments Med Refill Encounter Details Date Type Department Care Team (Late st Contact Info) Description 11/27/2023 Refill [facility] MEDICINE 230 [place] [address] Marian Crook MD 230 [place], [place] [phone] Social History Tobacco Use Types Packs/Day Years [...] documented as of this encounter Care Teams Department Secretary Relationship Specialty Start Date End Date Marian Crook MD 230 [place] [address] PCP - General Internal Medicine 09/12/23 10/24/24 Marian Crook MD 230 [place] [address] PCP - General Internal Medicine 10/25/24 documented as of this encounter
--- OUTSIDE RECORDS SUMMARY | 2025-01-21 07:57 | XMS_ITS | Encounter Summary ---
Author Organization [employer] Address [address] [place] [address] 7 [place] [address] Care Team Providers Care Furnace Hand Name Role Phone Miladys Alisha JEWEL SETTER Primary Care Provider [phone] Marian Crook MD Primary Care Provider + Marian Crook MD Primary Care Provider + Encounter Details Date Type Department Care Team (Late st Contact Info) Description 04/03/2023 Abstract [facility] MEDICINE 230 [place] [address] [place] Alisha [facility] 230 [place], [place] [phone] Social History Tobacco Use Types Packs/Day Years [...] documented as of this encounter Care Teams Furnace Hand Relationship Specialty Start Date End Date Alisha Hook FNP 230 [place] [address] PCP - General Family Medicine 11/14/21 09/11/23 Marian Crook MD 230 [place] [address] PCP - General Internal Medicine 09/12/23 10/24/24 Marian Crook MD 230 [place] [address] PCP - General Internal Medicine 10/25/24 documented as of this encounter
--- OUTSIDE RECORDS SUMMARY | 2025-01-21 07:57 | XMS_ITS | Encounter Summary ---
Author Organization [employer] Address [address] [place] [address] 7 [place] [address] Care Team Providers Care Boilermaker'S Assistant Name Role Phone Marian Crook MD Primary Care Provider + Marian Crook MD Primary Care Provider + Reason for Visit * Reason Comments Med Change Request Encounter Details Date Type Department Care Team ([facility] st Contact Info) Description 06/17/2024 Refill [facility] MEDICINE 230 [place] [address] Marian Crook MD 230 [place], [place] [phone] Social History Tobacco Use Types Packs/Day Years [...] documented as of this encounter Care Teams Boilermaker'S Assistant Relationship Specialty Start Date End Date Marian Crook MD 230 [place] [address] PCP - General Internal Medicine 09/12/23 10/24/24 Marian Crook MD 230 [place] [address] PCP - General Internal Medicine 10/25/24 documented as of this encounter
--- OUTSIDE RECORDS SUMMARY | 2025-01-21 07:57 | XMS_ITS | Encounter Summary ---
Author Organization [employer] Address 75 [facility] 7 [place] [address] Care Team Providers Care Hiv/Aids Care Nurse Name Role Phone Marian Crook MD Primary Care Provider + Reason for Visit * Reason Comments Med Refill Encounter Details Date Type Department Care Team ([facility] st Contact Info) Description 01/19/2025 Refill [facility] MEDICINE 230 [place], [place] [phone] Marian Crook MD 230 [place], [place] [phone] Social History Tobacco Use Types Packs/Day Years [...] documented as of this encounter Care Teams Hiv/Aids Care Nurse Relationship Specialty Start Date End Date Marian Crook MD [address] [place] [address] PCP - General Internal Medicine 10/25/24 documented as of this encounter
[2025-01-21 08:54] LABS: Anion Gap 9 (12-20); Blood Urea Nitrogen 16 mg/dL (9-16); Calcium 9.0 mg/dL (8.4-10.2); Carbon Dioxide 26 mmol/L (22-29); Chloride 109 mmol/L (96-108); Estimated Glomerular Filt Rate > 60; Potassium 3.8 mmol/L (3.3-5.1); Sodium 140 mmol/L (135-145)
== END 2025-01-21 07:55 | disposition home or self-care (01) ==
LOC: HO.LAB 07:54
PROVIDERS: Student in an Organized Health Care Education/Training Program; PCP Internal Medicine; Visit Provider Student in an Organized Health Care Education/Training Program
DX: I95.9 Hypotension, unspecified (principal)
CPT/HCPCS: 36415; 80048; 82024; 82533; 82627

== ENCOUNTER 2025-01-28 07:48 | Outpatient (AMB) | payer OTHER, SELFPAY ==
--- OUTSIDE RECORDS SUMMARY | 2025-01-28 07:50 | XMS_ITS | Clinical Summary ---
Author Organization [employer] Address [address] [facility] [address] [place] [address] Care Team Providers Care Pen And Pencil Repairer Name Role Phone Marian Crook MD [...] medication for now and to follow-up with director stars. Follow-up with me in 3 months Will need additional cardiac evaluation if renal insufficiency workup is negative Assessment & Plan (10/12/2024 2:20 PM EDT): Unclear if related to adrenal insufficiency, POTS,? Diabetes insipidus or other, we will refer to director stars. Started on low-dose midodrine, will slowly titrate [...] related to patient's menorrhagia(she is followed by [facility]) + significant diuresis. Patient will have increase [...] told her to reach out to legal summer intern to help her write a letter so that housing give her some more time to get the letter from MH provider. She will res tart Effexor for anxiety and fu with me in 6m Encounters Date Type Department Care Team Description 01/21/2025 Orders Only GENERIC EXTERNAL DATA DEPARTMENT Provider, Generic External Data 01/20/2025 Orders Only GENERIC EXTERNAL DATA DEPARTMENT Provider, Generic External Data 01/20/2025 Telephone [facility] [address] [place] [phone] Marian Crook MD Nurse Triage 01/20/[address] [address] Marian Crook MD 01/19/[address] [address] Marian Crook MD 01/07/2025 9:00 AM EDT Office Visit [facility] [address] [place] [phone] Marian Crook MD Orthostatic hypotension (Primary Dx); Vertigo; Class 1 obesity due to excess calories with serious comorbidity and body mass index (BMI) of 32.0 to 32.9 in adult; Moderate persistent asthma without complication; Tinea corporis; Chronic low back pain without sciatica, unspecified back pain laterality; Dietary counseling; Exercise counseling 01/07/2025 Travel 01/06/[address] [address] Marian Crook MD CHART PREP 01/03/2025 9:00 AM EDT Office Visit [facility] [address] [place] [address] Ramon, Annette, OD Meibomian gland disease of both eyes, unspecified eyelid (Primary Dx); Dermatochalasis of both upper eyelids; Presbyopia 01/03/2025 Travel 12/29/2024 Patient Outreach [facility] [address] [place] [phone] Mraian Crook MD Pre-visit Planning (SDOH screening completed on 06/23/2024) 12/13/2024 Refill [facility] [address] [place] [address] Marian Crook MD 11/19/2024 3:30 PM EDT Office Visit [facility] [address] [place] [address] Annette Mitchell CNP Dizziness; Chronic midline low back pain, unspecified whether sciatica present 11/19/2024 Travel 11/19/2024 Telephone [facility] [address] [place] [address] Marian Crook MD chart prep 11/18/2024 Refill [facility] [address] [place] [address] Annette Mitchell CNP Dizziness 11/11/2024 Results Follow-Up [facility] [address] [place] [address] Marian Crook MD US Retroperitoneal Complete 11/08/2024 Orders Only [facility] External Provider, [facility] 11/04/2024 3:00 PM EDT Office Visit [facility] [address] [place] [address] Annette Mitchell CNP Dizziness (Primary Dx) 11/04/2024 Travel 11/03/2024 Telephone [facility] [address] [place] [phone] Karina Corley MA Chart Prep 11/03/2024 Telephone [facility] [address] [place] [phone] Marian Crook MD Nurse Triage 10/28/2024 Refill [facility] [address] [place] [address] Name, MD Stefan from Last 3 Months Immunizations Immunization Administration [...] Procedure Name Priority Date/Time Associated Diagnosis Comments ACTH, PLASMA Routine 01/21/2025 8:10 AM EDT DHEA SULFATE Routine 01/21/2025 8:10 AM EDT CORTISOL RANDOM Routine 01/21/2025 8:10 AM EDT BASIC METABOLIC PANEL Routine 01/21/2025 8:10 AM EDT US VENOUS DUPLEX LE RT Routine 6:35 [...] Recently Relevant to Health Maintenance Results * Cortisol Random (01/21/2025 8:10 AM EDT) Cortisol Random 8.2 ug/dL [facility] Comment:Reference Range*: Be fore 10 am 6.2-19.4 ug/dL After 5 pm 2.3-11.9 ug/dL*Please interpret above results accordingly.This test was performed using the [employer] chemiluminescentmethod. Values obtained from different assay methods cannotbe used interchangeably.Patients receiving fludrocortisone, prednisolone orprednisone may show artificially elevated cortisol valuesdue to cross-reactivity. 01/21/2025 8:10 AM EDT 01/21/2025 8:10 AM EDT Generic External Data Provider LAB BLOOD ORDERAB LES Final Result Performing Organization Address City/[facility]/ZIP Co de Phone Number [facility] [address] [place] [phone] * DHEA Sulfate (01/21/2025 8:10 AM EDT) Pathologist [facility] [place] DHEA Sulfate 53 15 - 205 mcg/dL [facility] Comment:THIS TEST WAS PERFOR MED AT:[employer] [place] [id number] OLIVAS MD 01/21/2025 8:10 AM EDT 01/21/2025 8:10 AM EDT Generic External Data Provider LAB BLOOD ORDERAB LES Final Result Performing Organization Address City/[facility]/ZIP Co de Phone Number [facility] [address] [place] [phone] * ACTH, Plasma (01/21/2025 8:10 AM EDT) ACTH, Plasma 17 6 - 50 pg/mL [facility] Comment:Reference range appl ies only to specimens collectedbetween 7am-10am.THIS TEST WAS PERFORMED AT:[id number] [place] [id number] ZARATE MD,PHD 01/21/2025 8:10 AM EDT 01/21/2025 8:10 AM EDT us Generic External Data Provider LAB BLOOD ORDERAB LES Final Result Performing Organization Address [facility]/ZIP Co de Phone Number [facility] [address] [place] [phone] * (ABNORMAL) Basic Metabolic Panel (01/21/2025 8:10 AM EDT) Sodium 140 135 - 145 mmol/L [facility] Potassium 3.8 3.3 - 5.1 mmol/L [facility] Chloride 109(H) 96 - 108 mmol/L [facility] Carbon Dioxide 26 22 - 29 mmol/L [facility] Anion Gap 9(L) 12 - 20 [facility] Urea Nitrogen (BUN) 16 9 - 16 mg/dL [facility] Creatinine, Serum 0.76 0.5 - 1.4 mg/dL [facility] Estimated Glomerular Filt Rate >60 [facility] Comment:Chronic Kidney Disea se: Estimated GFR < 60 mL/min/1.33m7Ljncpz Kidney Disease: Estimated GFR < 15 mL/min/1.73m2 Glucose 90 60 - 115 mg/dL [facility] Calcium 9.0 8.4 - 10.2 mg/dL [facility] 01/21/2025 8:10 AM EDT 01/21/2025 8:10 AM EDT us Generic External Data Provider LAB BLOOD ORDERAB LES Final Result Performing Organization Address [facility]/ZIP Co de Phone Number [facility] [address] [place] [phone] * US VENOUS DUPLEX LE RT (01/20/2025 6:35 PM EDT) Anatomical Region Laterality Modality Abdomen Ultrasound 01/20/2025 6:35 PM EDT Narrative 01/20/2025 6:35 PM EDT [address] [address] Ultrasound Report Signed Patient: Corina Nielsen MR#: [id number] : 1975 Acct:[id number] Age/Sex: 49 / F ADM Date: 01/20/25 Loc: HO.ED Attending Dr: Ordering Physician: Devin Shah Date of Service: 01/20/25 Procedure(s): US venous duplex LE RT Accession Number(s): [id number] cc: Devin Shah; Marian Crook MD Reason [...] in OV> 01/20/251834 DD/ 34 TD/TT: 01/20/251834 [employer]ware: Procedure Note Donotuseinterpreter, Image - 01/20/[address] [address] Ultrasound Report Signed Patient: Baljit NielsenR#: [id number] : 1975Acct:[id number] Age/Sex: 49 / FADM Date: 01/20/25 Loc: HO.ED Attending Dr: Ordering Physician: Devin Shah Date of Service: 01/20/25 Procedure(s): US venous duplex LE RT Accession Number(s): [id number] cc: Devin Shah; Marian Crook MD Reason [...] in OV> 01/20/251834 DD/ 34 TD/TT: 01/20/251834 Engraver Flatware: us [facility] External Provider IMG US PROCEDURES Final Result * XR Foot 3+ Views Right (01/20/2025 3:20 PM EDT) Anatomical Region Laterality Modality Lower Extremities, Foot Right Radiogra phic Imaging 01/20/2025 3:20 PM EDT Narrative 01/20/2025 3:41 PM EDT [place] [address] XRay Report Signed Patient: Corina Nielsen MR#: [id number] : 1975 Acct:[id number] Age/Sex: 49 / F ADM Date: 01/20/25 Loc: .ED Attending Dr: Ordering Physician: Devin Shah Date of Service: 01/20/25 Procedure(s): XR foot RT min 3V Accession Number(s): [id number] cc: Devin Shah; Marian Crook MD Reason [...] OV> 01/20/25 1539 DD/ 152 TD/TT: 01/20/251529 Eng[employer]ver Flatware: MARILYN Procedure Note Donotuseinterpreter, Image - 01/20/[address] [address] XRay Report Signed Patient: Yarelis Nielsen#: [id number] : 1975Acct:[id number] Age/Sex: 49 / FADM Date: 01/20/25 Loc: .ED Attending Dr: Ordering Physician: Devin Shah Date of Service: 01/20/25 Procedure(s): XR foot RT min 3V Accession Number(s): [id number] cc: Devin Shah; Marian Crook MD Reason [...] OV> 01/20/25 1539 DD/ 1520 TD/TT: 01/20/25 153 Eng[employer]ver Flatware: MARILYN [facility] External Provider IMG XR PROCEDURES Final Result * XR Ankle 3+ Views Right (01/20/2025 3:20 PM EDT) Anatomical Region Laterality Modality Lower Extremities, Ankle Right Radiogr aphic Imaging 01/20/2025 3:20 PM EDT Narrative 01/20/2025 3:42 PM EDT [address] [address] XRay Report Signed Patient: Corina Nielsen MR#: [id number] : 1975 Acct:[id number] Age/Sex: 49 / F ADM Date: 01/20/25 Loc: HO.ED Attending Dr: Ordering Physician: Devin Shah Date of Service: 01/20/25 Procedure(s): XR ankle RT min 3V Accession Number(s): [id number] cc: Devin Shah; Marian Crook MD Reason [...] 01/20/25 1539 DD/ 1520 TD/TT: 01/20/25 1530 Eng[employer]ver Flatware: MARILYN Procedure Note Donotuseinterpreter, Image - 01/20/[address] [address] XRay Report Signed Patient: Baljit NielsenR#: [id number] : 1975Acct:[id number] Age/Sex: 49 / FADM Date: 01/20/25 Loc: HO.ED Attending Dr: Ordering Physician: Devin Shah Date of Service: 01/20/25 Procedure(s): XR ankle RT min 3V Accession Number(s): [id number] cc: Devin Shah; Marian Crook MD Reason [...] 01/20/25 1539 DD/ 1520 TD/TT: 01/20/25 1530 Eng[employer]ver Flatware: MARILYN [facility] External Provider IMG XR PROCEDURES Final Result * CBC auto differential (01/20/2025 3:19 PM EDT) White Blood Count 7.1 4.8 - 10.8 X10*3/uL [facility] Red Blood Count 4.23 4.20 - 5.50 X10*6/uL [facility] Hemoglobin 13.0 12.0 - 16.0 g/dl [facility] Hematocrit 39.5 37.0 - 47.0 % [facility] Mean Corpuscular Volume 93.4 80.0 - 98.0 fL [facility] Mean Corpuscular Hemoglobin 30.7 27.0 - 33.0 pg [facility] Mean Corpuscular HGB Conc 32.9 31.0 - 35.0 g/dl [facility] Red Cell Distribution Width 12.5 11.0 - 16.0 % [facility] Platelet Count 247 160 - 400 X10*3/uL [facility] Mean Platelet Volume 10.6 9.4 - 12.3 fL [facility] Neutrophils Percent Auto 63.7 45 - 73 % [facility] Imm Gran Pct Auto 0.3 0.0 - 0.4 % [facility] Lymphocytes Percent Auto 25.2 20 - 40 % [facility] Monocytes Percent Auto 6.3 2 - 11 % [facility] Eosinophils Percent Auto 3.9 0 - 4 % [facility] Basophils Percent Auto 0.6 0 - 2 % [facility] NRBC Pct Auto 0.0 0.0 - 0.2 /100WBC [facility] Neutrophils Absolute Auto 4.5 2.0 - 8.3 x10*3/uL [facility] Imm Gran Abs Auto 0.02 0.00 - 0.03 X10*3/uL [facility] Lymphocytes Absolute Auto 1.8 1.2 - 4.9 X10*3/uL [facility] Monocytes Absolute Auto 0.5 0.1 - 1.2 X10*3/uL [facility] Eosinophils Absolute Auto 0.3 0.0 - 0.4 X10*3/uL [facility] Basophils Absolute Auto 0.0 0.0 - 0.2 X10*3/uL [facility] NRBC Abs Auto 0.000 0.0 - 0.012 X10*3/uL [facility] 01/20/2025 3:19 PM EDT 01/20/2025 3:22 PM EDT us Generic External Data Provider LAB BLOOD ORDERAB LES Final Result Performing Organization Address City/[facility]/ZIP Co de Phone Number [facility] [address] [place] [phone] * Partial Thromboplastin Time, Activated (APTT) (01/20/2025 3:19 PM EDT) Partial Thromboplastin Time 30.6 26.7 - 34.1 SEC [facility] 01/20/2025 3:19 PM EDT 01/20/2025 3:22 PM EDT us Generic External Data Provider LAB BLOOD ORDERAB LES Final Result [facility] [address] [place] [phone] [phone] * Prothrombin Time-INR (01/20/2025 3:19 PM EDT) Pathologist [facility] [place] Prothrombin Time 11.9 10.9 - 12.4 SEC [facility] INTERNATIONAL NORM RATIO 1.0 0.9 - 1.1 [facility] Comment:INTERNATIONAL NORMAL IZED RATIO (INR) [...] ORDERAB LES Final Result Performing Organization Address [facility] Co de Phone Number [facility] [address] [place] [phone] * (ABNORMAL) Comprehensive Metabolic Panel (01/20/2025 3:19 PM EDT) [facility] Sodium 141 135 - 145 mmol/L [facility] Potassium 4.1 3.3 - 5.1 mmol/L [facility] Chloride 110(H) 96 - 108 mmol/L [facility] Carbon Dioxide 27 22 - 29 mmol/L [facility] Anion Gap 8(L) 12 - 20 [facility] Urea Nitrogen (BUN) 16 9 - 16 mg/dL [facility] Creatinine, Serum 0.91 0.5 - 1.4 mg/dL [facility] Creatinine Clr Calc Pharmacy 74.5 [facility] Comment:Provided height and weight: 160.02 cm,79.379 kg.eGFR (calculated from the MDRD study equation) and eCrCl(calculated from the Cockcroft-Gault equation) are based ondifferent parameters and may not yield comparable results.If eCrCl result is absurd, please check patient'sheight/weight. Estimated Glomerular Filt Rate >60 [facility] Comment:Chronic Kidney Disea se: Estimated GFR < 60 mL/min/1.70l9Xeywlx Kidney Disease: Estimated GFR < 15 mL/min/1.73m2 Glucose 91 60 - 115 mg/dL [facility] Calcium 8.9 8.4 - 10.2 mg/dL [facility] Bilirubin, Total 0.2 0.0 - 1.0 mg/dL [facility] Aspartate Amino Transferase 25 5 - 31 U/L [facility] Alanine Aminotransferase 18 0 - 31 U/L [facility] Total Protein 7.2 6.5 - 8.0 g/dL [facility] Albumin Level 4.3 3.5 - 5.0 g/dL [facility] Alkaline Phosphatase 69 39 - 117 U/L [facility] 01/20/2025 3:19 PM EDT 01/20/2025 3:22 PM EDT us Generic External Data Provider LAB BLOOD ORDERAB LES Final Result Performing Organization Address City/State/[facility] Co de Phone Number [facility] [address] [place] [phone] * US Retroperitoneal Complete (11/08/2024 3:30 PM EDT) Anatomical Region Laterality Modality Ultrasound 11/08/2024 3:30 PM EDT Narrative 11/09/2024 7:01 AM EDT [address] [address] Ultrasound Report Signed Patient: Corina Nielsen MR#: [id number] : 1975 Acct:[id number] Age/Sex: 49 / F ADM Date: 11/08/24 Loc: HO.US Attending Dr: Shelly PATEL Ordering Physician: Shelly Bo Date of Service: 11/08/24 Procedure(s): US retroperitoneal comp Accession Number(s): [id number] cc: Marian Crook MD; Shelly Bo [facility] EXAMINATION: US RETROPERITONEUM HISTORY: R35.0 - Frequency [...] 11/09/24 0658 DD/ 1530 TD/TT: 11/08/24 1600 Engraver Flatware: Procedure Note Donotuseinterpreter, Image - 11/09/[address] [address] Ultrasound Report Signed Patient: Yarelis Nielsen#: [id number] : 1975Acct:[id number] Age/Sex: 49 / FADM Date: 11/08/24 Loc: HO.US [facility] Ordering Physician: Shelly Bo Date of Service: 11/08/24 Procedure(s): US retroperitoneal comp Accession Number(s): [id number] cc: Marian Crook MD; Shelly Bo [facility] EXAMINATION: US RETROPERITONEUM HISTORY: R35.0 - Frequency [...] 11/09/24 0658 DD/ 1530 TD/TT: 11/08/24 1600 Engraver Flatware: [facility] External Provider IMG US PROCEDURES Edited Result - Final * HPV DNA, Low/High Risk (05/05/2024 10:22 AM EST) HPV High Risk Negative Negative [facility] HPV Genotype 16 Negative Negative [facility] HPV Genotype 18 Negative Negative [facility] Comment:HPV testing performe d at [facility] (CLIA#[id number]), [address] [place] [phone].Testing for HPV was performed using the [employer]system. The presence of HPV in the female [...] Final Result [facility] [address] [place] [phone] * Pap Smear (05/05/2024 10:22 AM EST) 05/05/2024 10:2 2 AM EST 05/06/2024 6:10 AM EST Narrative [facility] - 05/11/2024 9:16 AM EST ----- ------- Name: Corina Nielsen Age/Sex: 49/F : 1975 Unit#: [id number] Attend Dr: Pj Posadas MD Re05/05/24 Status: DEP REF Location: [facility] Disch: ----- ------- SPEC : [id number] RECD: 05/06/24 STATUS: YESSI CARDENAS NUM: [id number] LAURA: 05/05/24-[address] [facility] [address]: Pj Posadas MD ENTERED: 05/06/24 [...] Received ThinPrep-Cervical Copies To: Marian Crook MD [address] [phone] Pj Posadas MD [facility] [address] [place] [address] Drive [address] [place], [place] [phone] ----- ------- Signed (signature on file) Shankar SCARLET Wylie ([facility]) 05/11/24 0916 ----- ------- END OF REPORT Generic External Data Provider LAB CYTOLOGY ORDE RABLES Final Result Performing Organization Address [facility] Co de Phone Number [facility] [address] [place] [phone] * Hepatitis C Ab (03/27/2024 10:19 AM EST) Hepatitis C Antibody Nonreactive Nonreactive [facility] Comment:Antibodies to HCV no t detected; does not exclude early acuteHCV infection. 03/27/2024 10:1 9 AM EST 03/27/2024 10:19 AM EST Generic External Data Provider LAB BLOOD ORDERAB LES Final Result Performing Organization Address [facility] Co de Phone Number [facility] [address] [place] [phone] * HIV-1/2 Antigen and Antibodies, Fourth Generation, with Reflexes (03/27/2024 10:19 AM EST) HIV AB/AG Nonreactive Nonreactive [facility] Comment:HIV-1 p24 Ag and/or HIV-1/HIV-2 Ab not detected.A test result that is nonreactive does not exclude thepossibility of exposure to or infection with HIV-1 and/orHIV-2. Nonreactive results in this assay for individualswith prior exposure to HIV-1 and/or HIV-2 may be due toantigen and antibody levels that are below the limit ofdetection of this assay.The [employer] HIV Ag/Ab Combo assay result andsupplemental assay results should be interpreted inconjunction with the patient's clinical presentation,history and other laboratory results. If the results areinconsistent with clinical evidence, additional testing issuggested to confirm the result. 03/27/2024 10:1 9 AM EST 03/27/2024 10:19 AM EST us Generic External Data Provider LAB BLOOD ORDERAB LES Final Result [facility] [address] [place] [phone] * Cologuard?? colon cancer screening (02/02/2024 9:15 AM EST) Cologuard Result Negative Negative 02/08/20 24 2:05 AM EST [email or web address] (CLIA #:[id number]) Comment: NEGATIVE TEST RESULT. A negative Cologuard [...] (Isadora Rodriguez al, N Engl J Med 2014;370(14):9365-6856) The normal value (reference range) for this assay is negative. COLOGUARD RE-SCREENING RECOMMENDATION: Periodic colorectal cancer screening is an important part of preventive healthcare for asymptomatic individuals at average risk for colorectal cancer. Following a negative Cologuard result, the [place] Cancer Society and U.S. Multi-Society Task Force screening guidelines recommend a Cologuard re-screening interval of 3 years. References: [place] [employer] Guideline for Colorectal Cancer Screening: https://www.cancer.org/cancer/bdeiq-zybjty-ufvnjr/apyspnkub-yxpxulxoz-gvsjrzr/ac s-rec ommendations.html.; Hector DK, Julio Cesar CR, Janet TroncosoK, Colorectal Cancer Screening: Recommendations for Physicians and Patients from the U.S. Multi-Society Task Force on Colorectal Cancer Screening , Am J Gastroenterology 2017; 112:3201-0933. TEST DESCRIPTION: Composite algorithmic analysis of stool [...] (Isadora Rodriguez al, N Engl J Med 2014;370(14):1258-9775.) Cologuard may produce a false negative or false positive result (no colorectal cancer or precancerous polyp present at colonoscopy follow up). A negative Cologuard test result does not guarantee the absence of CRC or advanced adenoma (pre-cancer). The current Cologuard screening interval is every 3 years. ([place] [employer] Society and U.S. Multi-Society Task Force). Cologuard performance data in a 10,000 patient pivotal study using colonoscopy as the reference method can be accessed at the following location: www.[employer] Locate/results. Additional description of the Cologuard test process, warnings and precautions can be found at www.IPTEGOrd.com. Stool specimen (specimen) Rectal contents / Unknown 02/02/2024 9:15 AM EST 02/03/2024 10:52 AM EST Marian Crook MD LAB MOLECULAR DIAGNOSTIC S ORDERABLES Final Result [email or web address] (CLIA #:[id number]) [address] [place] [address], [place] [phone] * BI Mammogram Screening Tomosynthesis Bilateral (12/05/2023 3:30 PM EDT) Anatomical Region Laterality Modality Breast Bilateral Mammography 12/05/2023 3:30 PM EDT Narrative 12/19/2023 8:58 AM EDT [facility] [address] [place] [address] Mammography Report Signed Patient: Corina Nielsen MR#: [id number] : 1975 Acct:[id number] Age/Sex: 48 / F ADM Date: 12/05/23 Loc: HO.MAMMO Attending Dr: Marian Crook MD Ordering Physician: Marian Crook MD Results: 1Ne gative Date of Service: 12/05/23 Follow Up: 1 Year From Orig ina Mammogram Procedure(s): MM tomosynthesis screening BI Accession Number(s): [id number] cc: Marian Crook MD EXAMINATION: MM SCREENING [...] 12/19/23 0855 DD/ 1530 TD/TT: 12/05/23 1540 Engraver Flatware: Procedure Note Donotuseinterpreter, Image - 12/19/2023 [facility] [address] [place] [address] Mammography Report Signed Patient: Yarelis Nielsen#: [id number] : 1975Acct:[id number] Age/Sex: 48 / FADM Date: 12/05/23 Loc: HO.MAMMO Attending Dr: Marian Crook MD Ordering Physician: Marian Crook MDResults: 1Ne gative Date of Service: 12/05/23Follow Up: 1 Year From Orig ina Mammogram Procedure(s): MM tomosynthesis screening BI Accession Number(s): [id number] cc: Marian Crook MD EXAMINATION: MM SCREENING [...] 12/19/23 0855 DD/ 1530 TD/TT: 12/05/23 1540 Engraver Flatware: us Marian Crook MD IMG BI PROCEDURES Final Result * LIPID PANEL, STANDARD (10/17/2021 2:37 PM EDT) Chol/HDLC Ratio 2.9 <5.0 (calc) [facility] Cholesterol, Total 154 <200 mg/dL [facility] HDL Cholesterol 54 > OR = 50 mg/dL [facility] LDL Cholesterol 86 mg/dL (calc) [facility] Comment: Reference range: <100 Desirable range <100 mg/dL for primary prevention; <70 mg/dL for patients with CHD or diabetic patients with > or = 2 CHD risk factors. LDL-C is now calculated using the Camacho-Farnsworth calculation, which is a validated novel method providing better accuracy than the Friedewald equation in the estimation of LDL-C. Camacho SS et al. TAYO. 2013;310(19): 7556-9458 (http://education.Cramster.com/faq/SSX798) Non-HDL Cholesterol 100 <130 mg/dL (calc) [facility] Comment: For patients with diabetes plus 1 major ASCVD risk factor, treating to a non-HDL-C goal of <100 mg/dL (LDL-C of <70 mg/dL) is considered a therapeutic option. Triglycerides 56 <150 mg/dL [facility] 10/17/2021 2:37 PM EDT us Irma Arteaga NP LAB BLOOD ORDERABLES Final Resu lt [facility] [address] from Last 3 Months or Most Recently Relevant to Health Maintenance Insurance [facility] 3 Care Teams Pen And Pencil Repairer Relationship Specialty Start Date End Date Marian Crook MD [address] [place] [address] PCP - General Internal Medicine 10/25/24
--- OUTSIDE RECORDS SUMMARY | 2025-01-28 07:50 | XMS_ITS | Encounter Summary ---
Author Organization [employer] Address [address] [place] [address] 7 [place] [address] Care Team Providers Care Flat Screen Worker Name Role Phone Marian Crook MD Primary Care Provider + Marian Crook MD Primary Care Provider + Reason for Visit * Reason Comments Med Refill Encounter Details Date Type Department Care Team (Late st Contact Info) Description 11/27/2023 Refill [facility] MED[facility]INE 230 [place] [address] Marian Crook MD [address] [place], [place] [phone] Social History Tobacco Use Types Packs/Day Years [...] documented as of this encounter Care Teams Flat Screen Worker Relationship Specialty Start Date End Date Marian Crook MD [address] [place] [address] PCP - General Internal Medicine 09/12/23 10/24/24 Marian Crook MD [address] [place] [address] PCP - General Internal Medicine 10/25/24 documented as of this encounter
--- OUTSIDE RECORDS SUMMARY | 2025-01-28 07:50 | XMS_ITS | Encounter Summary ---
Author Organization [employer] Address 75 [facility] 7 [place] [address] Care Team Providers Care Business Development Recruiter Name Role Phone Marian Crook MD Primary Care Provider + Marian Crook MD Primary Care Provider + Reason for Visit * Reason Onset Date Comments FYI 08/03/2024 Encounter Details Date Type Department Care Team ([facility] st Contact Info) Description 08/03/2024 Telephone [facility] MEDICINE 230 [place], [place] [phone] Marian Crook MD [address] [place], [place] [phone] FYI Social History Tobacco Use Types Packs/Day [...] she has an upcoming visit with : [facility]iology 09/28 1pm . Should be at registration by 12:[address] [place] [address] documented in this encounter Plan of Treatment Not on file documented as of this encounter Visit Diagnoses Not on filedocumented in this encounter Additional Health Concerns Assessment Noted Time PHQ-9 Depression Total Score: 22 024 2:02 PM EDT documented as of this encounter Care Teams Business Development Recruiter Relationship Specialty Start Date End Date Marian Crook MD [address] [place] [address] PCP - General Internal Medicine 09/12/23 10/24/24 Marian Crook MD [address] [place] [address] PCP - General Internal Medicine 10/25/24 documented as of this encounter
--- OUTSIDE RECORDS SUMMARY | 2025-01-28 07:50 | XMS_ITS | Encounter Summary ---
Author Organization [employer] Address 75 [facility] 7 [place] [address] Care Team Providers Care Direct Mail Clerk Name Role Phone Marian Crook MD Primary Care Provider + Marian Crook MD Primary Care Provider + Reason for Visit * Reason Comments Med Change Request Encounter Details Date Type Department Care Team ([facility] st Contact Info) Description 06/17/2024 Refill [facility] MEDICINE 230 [place] [address] Marian Crook MD 230 [place], [place] [phone] Social History Tobacco Use Types Packs/Day Years [...] documented as of this encounter Care Teams Direct Mail Clerk Relationship Specialty Start Date End Date Marian Crook MD 230 [place] [address] PCP - General Internal Medicine 09/12/23 10/24/24 Marian Crook MD 230 [place] [address] PCP - General Internal Medicine 10/25/24 documented as of this encounter
--- OUTSIDE RECORDS SUMMARY | 2025-01-28 07:50 | XMS_ITS | Encounter Summary ---
Author Organization [employer] Address 75 [facility] 7 [place] [address] Care Team Providers Care Compressed Gas Equipment Mechanic Name Role Phone Marian Crook MD Primary Care Provider + Marian Crook MD Primary Care Provider + Reason for Visit * Reason Onset Date Comments Med Refill 03/25/2024 Encounter Details Date Type Department Care Team (Late st Contact Info) Description 03/25/2024 Refill [facility] MED[facility]INE 230 [place], [place] [phone] Clraitza Leonard DO 230 [place], [place] [phone] Social History Tobacco Use Types Packs/Day Years [...] documented as of this encounter Care Teams Compressed Gas Equipment Mechanic Relationship Specialty Start Date End Date Marian Crook MD [address] [place] [address] PCP - General Internal Medicine 09/12/23 10/24/24 Marian Crook MD 230 [place] [address] PCP - General Internal Medicine 10/25/24 documented as of this encounter
--- OUTSIDE RECORDS SUMMARY | 2025-01-28 07:50 | XMS_ITS | Encounter Summary ---
Author Organization [employer] Address 75 [facility] 7 [place] [address] Care Team Providers Care Trustee Of Estate Name Role Phone Marian Crook MD Primary Care Provider + Marian Crook MD Primary Care Provider + Reason for Visit * Reason Onset Date Comments Med Refill 03/25/2024 Encounter Details Date Type Department Care Team (Late st Contact Info) Description 03/25/2024 Refill [facility] 230 [place], [place] [phone] Marian Crook MD 230 [place], [place] [phone] Social History Tobacco Use Types Packs/Day Years [...] documented as of this encounter Care Teams Trustee Of Estate Relationship Specialty Start Date End Date Marian Crook MD [address] [place] [address] PCP - General Internal Medicine 09/12/23 10/24/24 Marian Crook MD 230 [place] [address] PCP - General Internal Medicine 10/25/24 documented as of this encounter
--- OUTSIDE RECORDS SUMMARY | 2025-01-28 07:50 | XMS_ITS | Encounter Summary ---
Author Organization [employer] Address [address] [place] [address] 7 [place] [address] Care Team Providers Care Screening Unit Registered Nurse Name Role Phone Alisha Hook Primary Care Provider [phone] Marian Crook MD Primary Care Provider + Marian Crook MD Primary Care Provider + Reason for Visit * Reason Onset Date Comments Nurse Triage 11/18/2022 Encounter Details Date Type Department Care Team (Late st Contact Info) Description 11/18/2022 Telephone [facility] MEDICINE [address] [place], [place] [phone] [place] 230 [place], [place] [phone] Nurse Triage Social History Tobacco Use Types [...] documented as of this encounter Care Teams Screening Unit Registered Nurse Relationship Specialty Start Date End Date [facility] 230 [place] [address] PCP - General Family Medicine 11/14/21 09/11/23 Marian Crook MD 230 [place] [address] PCP - General Internal Medicine 09/12/23 10/24/24 Marian Crook MD [address] [place] [address] PCP - General Internal Medicine 10/25/24 documented as of this encounter
--- OUTSIDE RECORDS SUMMARY | 2025-01-28 07:50 | XMS_ITS | Encounter Summary ---
Author Organization [employer] Address 75 [facility] 7 [place] [address] Care Team Providers Care Security Intelligence Analyst Name Role Phone Marian Crook MD Primary Care Provider + Marian Crook MD Primary Care Provider + Reason for Visit * Reason Onset Date Comments Med Refill 03/25/2024 Encounter Details Date Type Department Care Team (Late st Contact Info) Description 03/25/2024 Refill [facility] MEDICINE 230 [place], [place] [phone] Claritza Leonard DO 230 [place], [place] [phone] Social History Tobacco Use Types Packs/Day Years [...] as of this encounter Care Teams Security Intelligence Analyst Relationship Specialty Start Date End Date Marian Crook MD [address] [place] [address] PCP - General Internal Medicine 09/12/23 10/24/24 Marian Crook MD 230 [place] [address] PCP - General Internal Medicine 10/25/24 documented as of this encounter
--- OUTSIDE RECORDS SUMMARY | 2025-01-28 07:50 | XMS_ITS | Encounter Summary ---
Author Organization [employer] Address [address] [place] [address] 7 [place] [address] Care Team Providers Care Insurance Healthcare Consultant Name Role Phone Miladys Alisha ETHICS MANAGER Primary Care Provider [phone] Marian Crook MD Primary Care Provider + Marian Crook MD Primary Care Provider + Encounter Details Date Type Department Care Team (Late st Contact Info) Description 04/03/2023 Abstract [facility] MEDICINE 230 [place] [address] [place] [facility] 230 [place], [place] [phone] Social History Tobacco Use Types Packs/Day Years [...] as of this encounter Care Teams Insurance Healthcare Consultant Relationship Specialty Start Date End Date Alisha Hook FNP 230 [place] [address] PCP - General Family Medicine 11/14/21 09/11/23 Marian Crook MD 230 [place] [address] PCP - General Internal Medicine 09/12/23 10/24/24 Marian Crook MD 230 [place] [address] PCP - General Internal Medicine 10/25/24 documented as of this encounter
--- OUTSIDE RECORDS SUMMARY | 2025-01-28 07:50 | XMS_ITS | Encounter Summary ---
Author Organization [employer] Address 75 [facility] 7 [place] [address] Care Team Providers Care News Assistant Name Role Phone Marian Crook MD Primary Care Provider + Marian Crook MD Primary Care Provider + Reason for Visit * Reason Onset Date Comments Med Refill 03/25/2024 Encounter Details Date Type Department Care Team (Late st Contact Info) Description 03/25/2024 Refill [facility] MEDICINE 230 [place], [place] [phone] Marian Crook MD 230 [place], [place] [phone] Moderate persistent asthma without complication Social History [...] documented as of this encounter Care Teams News Assistant Relationship Specialty Start Date End Date Marian Crook MD 230 [place] [address] PCP - General Internal Medicine 09/12/23 10/24/24 Marian Crook MD 230 [place] [address] PCP - General Internal Medicine 10/25/24 documented as of this encounter
--- OUTSIDE RECORDS SUMMARY | 2025-01-28 07:50 | XMS_ITS | Encounter Summary ---
Author Organization [employer] Address 75 [facility] 7 [place] [address] Care Team Providers Care Audiology Doctor Name Role Phone Marian Crook MD Primary Care Provider + Reason for Visit * Reason Onset Date Comments Nurse Triage 01/20/2025 Encounter Details Date Type Department Care Team ([facility] st Contact Info) Description 01/20/2025 Telephone [facility] MED[facility]INE 230 [place], [place] [phone] Marian Crook MD 230 [place], [place] [phone] Nurse Triage Social History Tobacco Use Types [...] encounter Miscellaneous Notes * Telephone Encounter - Rachel Garcia RN - 01/25/2025 9:43 AM EST Called pt regarding message from PCP about post ER care, spoke to pt. Advised to pt that PCP sent orders for medications which pt has already received and take as prescribed. Also, advised of podiatry referral which pt has also already received an appointment. Advised to follow ER discharge instructions for now and when results of podiatry referral are back will back for any follow up as needed. Pt understands and agrees with plan. * Telephone Encounter - Lexi Leach - 01/25/2025 9:21 AM EST Tc from pt retuning call * Telephone Encounter - Augustina Constantino RN - 01/24/2025 2:19 PM EST ED note reviewed, pt. Seen for R heel pain radiating to R calf. US negative for DVT, xray showed heel spur. Prescribed prednisone 40mg x 5 days and naproxen 500mg bid prn. Also referred to a chemical radiation technician. TC placed to pt. For status check, no answer, left VM requesting call back to Red Team RN Upon receipt of message. Pt. To f/up prn * Telephone Encounter - Meseret Jones RN [...] or cellulitis. Pt states will go to [facility] ED in ~2hrs as she is [...] caller accepted this outcome. Contact pt at [phone] (solomon islander) documented in this encounter Plan of Treatment Not on file documented as of this encounter Visit Diagnoses Not on filedocumented in this encounter Additional Health Concerns Assessment Noted Time PHQ-9 Depression Total Score: 13 025 9:26 AM EDT documented as of this encounter Care Teams Audiology Doctor Relationship Specialty Start Date End Date Marian Crook MD [address] [place] [address] PCP - General Internal Medicine 10/25/24 documented as of this encounter
--- OUTSIDE RECORDS SUMMARY | 2025-01-28 07:51 | XMS_ITS | Encounter Summary ---
Author Organization [employer] Address 75 [facility] 7 [place] [address] Care Team Providers Care Optometry Doctor Name Role Phone Marian Crook MD Primary Care Provider + Reason for Visit * Reason Comments Med Refill Encounter Details Date Type Department Care Team (Late st Contact Info) Description 11/18/2024 Refill [facility] MEDICINE 230 [place] [address] Annette Mitchell, DIRECTOR DIVERSITY [address] [place] [address] Dizziness Social History Tobacco Use Types Packs/Day [...] documented as of this encounter Care Teams Optometry Doctor Relationship Specialty Start Date End Date Marian Crook MD [address] [place] [address] PCP - General Internal Medicine 10/25/24 documented as of this encounter
--- OUTSIDE RECORDS SUMMARY | 2025-01-28 07:51 | XMS_ITS | Encounter Summary ---
Author Organization [employer] Address 75 [facility] 7 [place] [address] Care Team Providers Care Core Blower Name Role Phone Marian Crook MD Primary Care Provider + Marian Crook MD Primary Care Provider + Reason for Visit * Reason Comments Med Refill Encounter Details Date Type Department Care Team ([facility] st Contact Info) Description 06/05/2024 Refill [facility] MEDICINE [address] [place] [address] Marian Crook MD 230 [place], [place] [phone] Social History Tobacco Use Types Packs/Day Years [...] documented as of this encounter Care Teams Core Blower Relationship Specialty Start Date End Date Marian Crook MD 230 [place] [address] PCP - General Internal Medicine 09/12/23 10/24/24 Marian Crook MD 230 [place] [address] PCP - General Internal Medicine 10/25/24 documented as of this encounter
--- OUTSIDE RECORDS SUMMARY | 2025-01-28 07:51 | XMS_ITS | Clinical Summary ---
Author Organization [facility] Address [address] [place] [address] Phone Care Team Providers Care Power Cutting Machine Operator Name Role Phone Marian Crook MD Primary Care Provider [phone] Encounters Date Type Department Care Team Description 12/21/2024 Telephone [facility] [address] [place] [address] Marian Crook MD 12/21/2024 Telephone [place] [address] [place] [phone] Marian Crook MD from Last 3 Months [...] patient's age to complete this topic Insurance [facility] Care Teams Power Cutting Machine Operator Relationship Specialty Start Date End Date Marian Crook MD [address] [phone] PCP - General Internal Medicine 07/08/24
--- OUTSIDE RECORDS SUMMARY | 2025-01-28 07:51 | XMS_ITS | Encounter Summary ---
Author Organization [employer] Address 75 [facility] 7 [place] [address] Care Team Providers Care Audience Coordinator Name Role Phone Marian Crook MD Primary Care Provider + Marian Crook MD Primary Care Provider + Reason for Visit * Reason Onset Date Comments Med Refill 06/02/2024 Encounter Details Date Type Department Care Team ([facility] st Contact Info) Description 06/02/2024 Telephone [facility] MEDICINE 230 [place], [place] [phone] Marian Crook MD 230 [place], [place] [phone] Med Refill Social History Tobacco Use Types [...] documented as of this encounter Care Teams Audience Coordinator Relationship Specialty Start Date End Date Marian Crook MD 230 [place] [address] PCP - General Internal Medicine 09/12/23 10/24/24 Marian Crook MD 230 [place] [address] PCP - General Internal Medicine 10/25/24 documented as of this encounter
[2025-01-28 08:09] VITALS: BMI 31.0
--- NOTE | 2025-01-28 08:09 | A.OFFVIS_ITS ---
Vital Signs 01/28/25 08:09 Height 5 ft 3 in Weight 175 lb BMI 31.0 Intake Visit Reasons: ED referral Heel spur versus plantar fasciitis Intake Note: Corina is a 49 year old female who presents today as a new patient for an evaluation of her heel spur vs plantar fasciitis of the right foot. She was seen at [facility] ED on 01/20/25 where she was prescribed prednisone and naproxen. Patient states the medications has helped her slightly. The pain has been going for 3 months and she has tried stretching exercises, patches,pain relief cream and has found that this did not help relieve her pain symptoms. Foot X-ray FINDINGS: Bone alignment is normal. No fracture or dislocation. Normal joint spaces. Small calcaneal spurs. Soft tissues otherwise normal. IMPRESSION: Normal right foot. Ankle X-ray IMPRESSION: No fracture or dislocation. Small calcaneal spurs. Allergies No Known Allergies (No Known Allergies*) Allergy (Verified 01/20/25 15:11) [place] [facility] referral Heel spur versus plantar fasciitis: Details: 49-year-old female no pertinent past medical history presents for initial evaluation of right foot and heel pain. She states that she has had recurrent pain for the past 3 months that has slowly been worsening. Pain is worse with the bottom of her heel, does radiate towards the arch than top of her foot. She so far has tried Naprosyn and prednisone which has helped. She also recently switched her shoes to more supportive sneakers which has helped. 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 [facility] Medical History (Updated 01/28/25 @ 08:47 by Rey Donnelly DPM) Hypotension delivery delivered Depression Anal fissure Hemorrhoids Chronic RLQ pain Polyuria Dizziness FILIBERTO (obstructive sleep apnea) Moderate persistent asthma in adult without complication Chronic low back pain Iron deficiency Arthritis History of asthma Surgical History Hx of colonoscopy History of esophagogastroduodenoscopy (EGD) S/P laparoscopic sleeve gastrectomy H/O abdominoplasty Family History Mother History of hypertension Arthritis Glaucoma Father Heart problem History of hypertension Brother Heart problem History of hypertension Sister History of hypertension Brother No problems noted. Brother No problems noted. Brother No problems noted. Brother No problems noted. Sister Ovarian cancer Sister No problems noted. Sister No problems noted. 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 No pedal edema. No ankle edema. Derm: No erythema or clinical signs of infection. Neuro: Protective sensation grossly intact to bilateral lower extremities. MSK: Moderate tenderness on palpation of the plantar medial calcaneal tubercle right heel. Moderate arch foot type. No pain to the Achilles tendon insertion. No pain to the anterior extensor tendons. Ankle dorsiflexion 0 degrees on knee extension, 4-5 degrees on knee flexion. Results Reviewed Results Reviewed: Podiatry X-ray Read: 01/20/2025 X-ray right foot 3 views (AP, MO, Lateral) reviewed which shows mild plantar calcaneal spur, no fractures, dislocations, or gross abnormalities. Bone density is within normal limits. Normal anatomy. No evidence of swelling, foreign body, or calcifications. I personally reviewed the imaging and my findings are listed above. Assessment & Plan Assessment & Plan (1) Plantar fasciitis of right foot: Code(s): M72.2 - Plantar fascial fibromatosis Category: Medical Plan: * Discussed etiology of the patient's foot pain. Differential diagnosis includes plantar fasciitis, neuritis, tendinitis. * Patient educated on the nature and etiology of plantar fasciitis, which invol ves inflammation and microtearing of the plantar fascia due to repetitive stress and overuse. * Reviewed right foot x-rays. * The patient was counseled on conservative management of plantar fasciitis, including daily stretching exercises targeting the plantar fascia and Achilles tendon, use of supportive and properly fitting footwear, and consideration of custom or prefabricated orthotics to improve foot biomechanics. * Discussed that if symptoms persist despite these measures, further interventions such as corticosteroid injections may be considered. * Instructed the patient on home stretching and range of motion exercises including calf-stretches, frozen water bottle therapy, band-therapy. * Recommended supportive shoe-wear with arch-supports to avoid increased loading on the patient's plantar fascia band. * Rx Naprosyn 500mg BID x 3 weeks. * Follow up in 3 weeks (2) Mass of right foot: Code(s): R22.41 - Localized swelling, mass and lump, right lower limb Category: Medical Plan: * Slowly been growing over the past 1 year * Referred for MRI for further evaluation for possible surgical excision. Orders: Orders MR foot RT wo/w con Today M77.9 - Enthesopathy, unspecified, M79.89 - Other specified soft tissue disorders Medications: Refilled naproxen 500 mg PO BID PRN 30 tabs 0RF pain (scale score 4-6) M72.2 - Plantar fascial fibromatosis Coding Level of Care Code New Pt Level 4 (48029) Diagnoses Plantar fasciitis of right foot M72.2 Mass of right foot R22.41 Time Spent (min) 35
== END 2025-01-28 08:22 | disposition home or self-care (01) ==
LOC: HO.HPODS 07:49
PROVIDERS: PCP Internal Medicine; Visit Provider Student in an Organized Health Care Education/Training Program
DX: M72.2 Plantar fascial fibromatosis (principal); R22.41 Localized swelling, mass and lump, right lower limb
CPT/HCPCS: 99204

== ENCOUNTER → 2025-01-28 07:48 | Outpatient (BNVA) | payer OTHER, SELFPAY | PROVIDERS: PCP Internal Medicine; Visit Provider Student in an Organized Health Care Education/Training Program | DX: M72.2 Plantar fascial fibromatosis (principal); R22.41 Localized swelling, mass and lump, right lower limb | CPT/HCPCS: 99202 ==

== ENCOUNTER 2025-02-11 08:33 | Outpatient (AMB) | payer OTHER, SELFPAY ==
--- OUTSIDE RECORDS SUMMARY | 2025-02-11 08:37 | XMS_ITS | Clinical Summary ---
Author Organization [facility] Address [address] [place] [address] Phone Care Team Providers Care Assembler Dc Field Yoke Name Role Phone Marian Crook MD Primary Care Provider [phone] Encounters Date Type Department Care Team Description 12/21/2024 Telephone [facility] Cardiology [facility] [address] [place] [address] Marian Crook MD 12/21/2024 Telephone [place] [address] [place] [phone] Marian Crook MD from Last 3 Months [...] 2024 , 12/20/2018, 05/15/2017, Additional history exists RSV Immunization Adult Patients (1 - Risk 50-74 years 1-dose series) 2025 Zoster Vaccines (1 of 2) 2025 12/02/2008 Colorectal Cancer Screening: FIT-DNA (Cologuard) 02/01/2027 02/02/2024 Cervical Cancer Screening: Pap Smear 05/05/2027 05/05/2024 DTaP,Tdap,and Td Vaccines (5 - Td or Tdap) 01/11/2034 01/12/2024, 12/03/2012, 10/11/2008, Additional history exists Varicella Vaccines Aged Out 12/02/2008 No longer eligible based on patient's age to complete this topic Pneumococcal Vaccine: 50+ Years Completed 01/12/2024, 10/11/2013 HIV Screening Completed [...] patient's age to complete this topic Insurance [facility] Care Teams Assembler Dc Field Yoke Relationship Specialty Start Date End Date Marian Crook MD [address] [place] [phone] PCP - General Internal Medicine 07/08/24
--- NOTE | 2025-02-11 09:26 | MHC.OFFVIS ---
Intake Visit Reasons: UroD Allergies No Known Allergies (No Known Allergies*) Allergy (Verified 01/20/25 15:11) Medication List - Last Reconciled 02/11/25 by Eriberto Dick MD albuterol sulfate 1 vial inhalation Q4H PRN cholecalciferol (vitamin D3) (Vitamin D3) 50 mcg PO DAILY lidocaine 5% 1 patch topical DAILY meclizine 25 mg PO BID PRN midodrine 2.5 mg PO TID mirabegron ER (Myrbetriq) 50 mg PO DAILY naproxen 500 mg PO BID PRN omeprazole 20 mg PO DAILY prednisone 40 mg (2 x 20 mg) PO DAILY 5 days HPI Comments Details: 02/11/25-- History of Present Illness The patient is a 50-year-old individual presenting with urinary urgency. The patient reports experiencing the need to urinate shortly after voiding, particularly noticeable during work and shopping, for over a year. The patient has had three pregnancies, all resulting in sections, with no bladder control issues post- until the last year. The patient has a history of uterine fibroids, which were treated with ablation approximately three to four months ago, resulting in reduced bleeding frequency. The patient experiences abnormal uterine bleeding, which has been less frequent since the procedure. Results Plan 1. Urinary Urgency - Initiate treatment with Mirabegron to manage urinary urgency. - Consider Botox injections in the bladder if medication is ineffective. - Schedule a follow-up phone call in seven weeks to assess treatment efficacy. 2. Uterine Fibroid - Monitor post-ablation bleeding patterns. 3. Abnormal Uterine Bleeding - Continue monitoring bleeding frequency and severity post-ablation. 11/16/24--Corina is a very pleasant 49-year-old female patient of Dr. Corley. She has a past medical history of depression, anal fissure, hemorrhoids, polyuria, dizziness, obstructive sleep apnea, asthma, chronic low-back pain, iron deficiency, and arthritis. She presents to the office today for follow-up of her ongoing lower urinary tract symptoms and renal cysts. In discussion with the patient today she continues to report episodes of urinary urgency and frequency as well as stress incontinence. She discusses her reluctancy and taking medications. Recent retroperitoneal ultrasound results were reviewed 10/15 bilateral kidneys with normal echotexture and thickness. There are multiple peripelvic cysts bilaterally. No hydronephrosis or renal calculi noted bilaterally. The urinary bladder is unremarkable. Postvoid bladder volume was approximately 5 mL. Patient had previously trialed low-dose Cialis for potential bladder stability with Dr. Morales however did not find this helpful. We did discuss further treatment options to include pelvic floor therapy, medications, in office cystoscopy, and or in office urodynamics for further assessment evaluation. Risks and benefits of these interventions were discussed. All questions were answered. In office urinalysis results reviewed with the patient today. She denies hematuria, dysuria, foul-smelling urine, changes to urinary stream, flank pain, fever, and or chills. She reports be following up with [facility] for ongoing uterine fibroids. She reports PCP ordered 24 hour urine collection that she plans to complete soon. We discussed bladder triggers/irritants. All questions were answered. She otherwise offers no other issues or concerns at this time. [facility] Medical History (Updated 01/28/25 @ 08:47 by Rey Donnelly DPM) Hypotension delivery delivered Depression Anal fissure Hemorrhoids Chronic RLQ pain Polyuria Dizziness FILIBERTO (obstructive sleep apnea) Moderate persistent asthma in adult without complication Chronic low back pain Iron deficiency Arthritis History of asthma Surgical History Hx of colonoscopy History of esophagogastroduodenoscopy (EGD) S/P laparoscopic sleeve gastrectomy H/O abdominoplasty Family History Mother History of hypertension Arthritis Glaucoma Father Heart problem History of hypertension Brother Heart problem History of hypertension Sister History of hypertension Brother No problems noted. Brother No problems noted. Brother No problems noted. Brother No problems noted. Sister Ovarian cancer Sister No problems noted. Sister No problems noted. 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 Information consent for procedure given to the patient. Discussed technical aspects, risks, benefits and alternatives in full. Addressed all of the patient's questions and concerns regarding the procedure. The patient demonstrated knowledge and understanding. They wish to proceed with this procedure. Preparation The patient was prepped in the usual manner. A interpreter and translator was present and in the room. Genitalia was prepped with betadine solution in a sterile manner. Procedure Complex Uroflow Patient had no desire to void for uroflowmetry. Straight cath amount: 50mls Cystometrogram ? Vaginal/rectal catheter type: Vaginal First sensation at (mL): 29 mL First desire at (mL): 48 mL Strong desire to void occurred at (mL): 214 mL Strong desire detrusor pressure (cm H2O): 1.5 Maximum Capacity (mL): 301 mL Voiding Summary Patient attempted, but unable to void with catheters in place. Catheters removed and patient able to void without difficultly 300mls in bathroom. Stress Testing Stress Test at 138 mL: Absent leak with Valsalva, Absent leak with cough Stress Test at 266 mL: Absent leak with Valsalva, Present leak with cough DO Dry: 136ml DO Wet:Absent Prep: The patient was prepped in the usual manner. A interpreter and translator was present and in the room. Genitalia was prepped with betadine solution in a sterile manner. 51671-Eiiqwshvqwyirs w/ ENGINE MECHANIC 87646-Vkhd/Urinary Muscle Study 81200-Ehgaz-Ugfbhlemq Pressure Test Procedure code (CPT) selection complete Office Meds lidocaine HCl 2 % mucosal jelly in applicator Performing Provider: Eriberto Dick MD Performing Location: [facility] [place] [facility] Documented (not given) by: Yee Gann RN on 02/11/25 09:26 Reason Not Given: No Longer Necessary nitrofurantoin monohydrate/macrocrystals 100 mg capsule Performing Provider: Eriberto Dick MD Performing Location: [facility] [place] [facility] Administered by: Yee Gann RN on 02/11/25 09:26 Dose Route Admin Location Dispensed Lot Number Expiration Date NDC Sewing Machine Operator Zipper 100 mg PO 1 cap Results AMB Urinalysis, Automated UA Leukoctes 15 Kaylene/uL Last Edit by Yee Gann RN on 02/11/25 10:19 UA Nitrite Negative Last Edit by Yee Gann RN on 02/11/25 10:19 UA Urobilinogen 0.2 mg/dL Last Edit by Yee Gann RN on 02/11/25 10:19 UA Protein 15 mg/dL Last Edit by Yee Gann RN on 02/11/25 10:19 UA pH 7.5 Last Edit by Yee Gann RN on 02/11/25 10:19 UA Blood 0 Eren/uL Last Edit by Yee Gann RN on 02/11/25 10:19 UA Specific [place] 1.0 Last Edit by Yee Gann RN on 02/11/25 10:19 UA Ketone Negative Last Edit by Yee Gann RN on 02/11/25 10:19 UA Bilirubin 0 mg/dL Last Edit by Yee Gann RN on 02/11/25 10:19 UA Glucose 0 mg/dL Last Edit by Yee Gann RN on 02/11/25 10:19 Assessment & Plan Assessment & Plan Orders: Orders AMB Urodynamics Studies Today N39.3 - Stress incontinence (female) (male), R35.0 - Frequency of micturition, R39.15 - Urgency of urination AMB Urinalysis Automated Today Z13.9 - Encounter for screening, unspecified Medications: New mirabegron ER (Myrbetriq) 50 mg PO DAILY 30 tabs 5RF Coding CPT Codes Urodynamic Studies - CPT: 76212-Nnhqvgwsnmnoic w/ ENGINE MECHANIC ([id number]) Urodynamic Studies - CPT: 90118-Jwrk/Urinary Muscle Study ([id number]) Urodynamic Studies - CPT: 69791-Tazda-Qoldovshw Pressure Test ([id number])
== END 2025-02-11 10:10 | disposition home or self-care (01) ==
LOC: HO.HUSH 08:34
PROVIDERS: PCP Internal Medicine; Visit Provider Urology
DX: N39.3 Stress incontinence (female) (male) (principal); R35.0 Frequency of micturition; R39.15 Urgency of urination; Z13.9 Encounter for screening, unspecified
CPT/HCPCS: 51728; 51784; 51797

== ENCOUNTER → 2025-02-11 08:33 | Outpatient (BNVA) | payer OTHER, SELFPAY | PROVIDERS: PCP Internal Medicine; Visit Provider Urology | DX: N39.3 Stress incontinence (female) (male) (principal); R35.0 Frequency of micturition; R39.15 Urgency of urination; Z13.9 Encounter for screening, unspecified | CPT/HCPCS: 51728; 51784; 51797; 81003 ==

== ENCOUNTER 2025-02-14 07:30 | Outpatient (RCR) | payer OTHER, SELFPAY ==
[2025-02-14 07:32] VITALS: BP 120/97; PULSE 84; RESP 18; TEMP 36.6
[2025-02-15 10:18] LABS: Cortisol 60 Minute 27.9 mcg/dL; Cortisol 60 Minute Time 2 0857; Cortisol Baseline Time 1 0753
[2025-02-16 08:01] LABS: Med (ACTH) Time 0733
== END 2025-02-14 09:06 | disposition home or self-care (01) ==
LOC: HO.INF 07:30
PROVIDERS: Visit Provider Internal Medicine Endocrinology, Diabetes & Metabolism
DX: I95.1 Orthostatic hypotension (principal)
CPT/HCPCS: 36415; 82533; 96374; J0834

== ENCOUNTER 2025-02-16 15:07 | Outpatient (AMB) | payer OTHER, SELFPAY ==
--- NOTE | 2025-02-16 15:12 | MHC.OFFVIS ---
Vital Signs 02/16/25 15:14 Height 5 ft 3 in Weight 181 lb 10.574 oz BMI 32.2 BP 106/63 Blood Pressure Location Lt brachial Position Sitting Pulse 85 Intake Visit Reasons: rectal bleeding Intake Note: Corina presents to in office follow up of rectal bleeding. CC: Patient reports that in December she was having rectal bleeding for about 10 days mostly without BMs. She c/o a lot of gas, regurgitation, and nausea. She reports a little bit of constipation. Lead Systems Architect Required: No Accompanied by: Self / Same As Patient Allergies No Known Allergies (No Known Allergies*) Allergy (Verified 02/16/25 15:19) HPI Comments Details: 49 y.o F who is here for changes in bowel habits and rectal bleeding. Pt reports started noticing increased frequency of BMs which are softer and assoc with blood x2 months. Went to the ER for this in Nov and was told he has a fissure but does not report any discomfort on defecation. Also has to wake up at night time to defecate. Assoc with nausea, pain and increased flatulence and bloating. Appetite is ok, reports gaining weight. Has hx sleeve gastrectomy in 2018. Fam hx neg for CRC or IBD. Laboratory Tests 12/20/23 01:27 Hgb 13.3 Hct 38.3 05/27/24:EGD/colo 1. Normal esophagus 2. s/p sleeve gastrectomy anatomy 3. Normal gastric mucosa (biopsy) 3. Normal duodenum (biopsy) 4. Normal colon and terminal ileum mucosa (biopsy) 5. 1 polyp removed 6. Internal and external hemorrhoids Path: A. Duodenum, biopsy: Duodenal mucosa within normal limits. B. Stomach, biopsy: Antral-type and oxyntic mucosa with moderate chronic, focally active, inflammation; negative for H. pylori. C. Colon, right, biopsy: Colonic mucosa within normal limits. D. Colon, left, biopsy: Colonic mucosa within normal limits. E. Colon, sigmoid, polypectomy: Tubular adenoma; negative for high-grade dysplasia or carcinoma 06/11/24: Here for follow up. Reviewed the finding of tubular adenoma. Pt aware to return in 3 years. Also reviewed mild gastritis, will start on omeprazole x 8-12 weeks. 02/16/25: The patient requested this follow up for rectal bleeding. The patient underwent a colonoscopy in May of this year. The patient began experiencing an increased amount of rectal bleeding in November/ December. About 10 days ago, the bleeding significantly worsened, occurring 3 to 4 times a day for a 10-day period. The bleeding would occur not only with bowel movements but also spontaneously or with passing gas. The bleeding reportedly stopped two days ago. She denies constipation or straining in fact reports pasty stools. Associated symptoms include a significant increase in flatus, a feeling of incomplete evacuation (tenesmus), and early satiety. The stool has been paste-like in consistency, and there has been a change in bowel habits from one to three or four times per day. Had blood work done through PCP last week showed a hemoglobin of 14.4. --- Pt was informed and consented to the use of ambient scribe for this encounter. --- [facility] Medical History (Updated 02/16/25 @ 16:46 by Darling Gaston MD) Hypotension delivery delivered Depression Anal fissure Hemorrhoids Chronic RLQ pain Polyuria Dizziness FILIBERTO (obstructive sleep apnea) Moderate persistent asthma in adult without complication Chronic low back pain Iron deficiency Arthritis History of asthma Surgical History Hx of colonoscopy History of esophagogastroduodenoscopy (EGD) S/P laparoscopic sleeve gastrectomy H/O abdominoplasty Family History Mother History of hypertension Arthritis Glaucoma Father Heart problem History of hypertension Brother Heart problem History of hypertension Sister History of hypertension Brother No problems noted. Brother No problems noted. Brother No problems noted. Brother No problems noted. Sister Ovarian cancer Sister No problems noted. Sister No problems noted. 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 Female Reproductive History Menstrual Age of Menarche: 14 Review of Systems Const All systems reviewed & are unremarkable except as noted in HPI and below Physical Exam Exam Exam: No apparent distress Nonicteric Abdomen soft, nondistended Alert and oriented x3, normal gait Vital Signs: Last Vital Signs Pulse 85 02/16/25 15:14 BP 106/63 02/16/25 15:14 BMI result Body Mass Index 32.2 Assessment & Plan Assessment & Plan (1) Bright red rectal bleeding: Code(s): K62.5 - Hemorrhage of anus and rectum Category: Medical (2) Hemorrhoids: Code(s): K64.9 - Unspecified hemorrhoids Category: Medical (3) Change in bowel habit: Code(s): R19.4 - Change in bowel habit Category: Medical Plan 1. Rectal bleeding and internal hemorrhoids The patient reports a recent 10-day history of significant rectal bleeding, which has now resolved, associated with increased flatus and tenesmus. While the bleeding is likely 2/2 to hemorrhoids, given the patient's concern and associated symptoms, further investigation is warranted to rule out other pathology such as proctitis, SURS, missed polyp/mass. Plan: - Flex sig to eval outlet bleeding. - Hydrocort 2.5% to be applied AL daily at night x 14 days to treat the hemorrhoids. -If the sigmoidoscopy is unremarkable, the patient will be referred to a surgeon to discuss procedural options for the hemorrhoids. --- Pt was informed and consented to the use of ambient scribe for this encounter. --- Orders: Referrals GI Procedure Notification K62.5 - Hemorrhage of anus and rectum Medications: New hydrocortisone 2.5% (Anusol-HC) 1 appl AL BEDTIME 30 grams 0RF hemorrhoids 14 days bisacodyl Take one enema the evening before procedure, repeat second enema the morning of the procedure at least 1 hour before arrival time. 10 mg (30 mL) AL BID 60 mL 0RF 1 day Patient Instructions: - Apply the prescribed steroid cream every night for 14 days. - We will schedule you for a flexible sigmoidoscopy.Office will call you to book the procedure. - To prepare for the procedure, you must only have clear liquids the entire day before your appointment. - You will need to take bisacodyl the afternoon before the procedure. - You will need to use two enemas: one the evening before the procedure and one the morning of the procedure. Coding Level of Care Code Est Pt Level 4 (42650) Diagnoses Bright red rectal bleeding K62.5 Hemorrhoids K64.9 Change in bowel habit R19.4
[2025-02-16 15:14] VITALS: BP 106/63; PULSE 85; BMI 32.2
--- OUTSIDE RECORDS SUMMARY | 2025-02-16 17:40 | XMS_ITS | Encounter Summary ---
Author Organization [employer] Address [address] [place] [address] 7 [place] [address] Care Team Providers Care Coil Wrapper Name Role Phone Marian Crook MD Primary Care Provider + Marian Crook MD Primary Care Provider + Reason for Visit * Reason Onset Date Comments Med Refill 03/25/2024 Encounter Details Date Type Department Care Team (Late st Contact Info) Description 03/25/2024 Refill [facility] MEDICINE [address] [place], [place] [phone] Claritza Leonard DO [address] [place], [place] [phone] Social History Tobacco Use Types Packs/Day Years [...] documented as of this encounter Care Teams Coil Wrapper Relationship Specialty Start Date End Date Marian Crook MD [address] [place] [phone] PCP - General Internal Medicine 09/12/23 10/24/24 Marian Crook MD [address] [place] [address] PCP - General Internal Medicine 10/25/24 documented as of this encounter
--- OUTSIDE RECORDS SUMMARY | 2025-02-16 17:40 | XMS_ITS | Encounter Summary ---
Author Organization [employer] Address [address] [place] [address] [address] [place] [address] Care Team Providers Care Slag Expander Name Role Phone Alisha Hook Primary Care Provider [phone] Marian Crook MD Primary Care Provider + Marian Crook MD Primary Care Provider + Reason for Visit * Reason Onset Date Comments Nurse Triage 11/18/2022 Encounter Details Date Type Department Care Team (Late st Contact Info) Description 11/18/2022 Telephone [facility] MEDICINE [address] [place], [place] [phone] MiladysAlisha [facility] [address] [place], [place] [phone] Nurse Triage Social History Tobacco Use Types [...] documented as of this encounter Care Teams Slag Expander Relationship Specialty Start Date End Date [facility] [address] [place] [address] PCP - General Family Medicine 11/14/21 09/11/23 Marian Crook MD [address] [place] [address] PCP - General Internal Medicine 09/12/23 10/24/24 Marian Crook MD [address] [place] [address] PCP - General Internal Medicine 10/25/24 documented as of this encounter
--- OUTSIDE RECORDS SUMMARY | 2025-02-16 17:40 | XMS_ITS | Clinical Summary ---
Author Organization [facility] Address [address] [place] [address] Phone Care Team Providers Care Candlemaking Laborer Name Role Phone Marian Crook MD Primary Care Provider [phone] Encounters Date Type Department Care Team Description 12/21/2024 Telephone [facility] Cardiology [facility] [address] [place] [address] Marian Crook MD 12/21/2024 Telephone [place] [address] [place] [phone] Marian Crook MD from Last 3 Months [...] topic Insurance [facility] PLAN Care Teams Candlemaking Laborer Relationship Specialty Start Date End Date Marian Crook MD [address] [place] [phone] PCP - General Internal Medicine 07/08/24
--- OUTSIDE RECORDS SUMMARY | 2025-02-16 17:40 | XMS_ITS | Encounter Summary ---
Author Organization [employer] Address [address] [place] [address] [address] [place] [address] Care Team Providers Care Turfgrass Management Professor Name Role Phone Miladys Alisha [facility] Primary Care Provider [phone] Marian Crook MD Primary Care Provider + Marian Crook MD Primary Care Provider + Encounter Details Date Type Department Care Team (Late st Contact Info) Description 04/03/2023 Abstract [facility] MEDICINE [address] [place] [address] [place] Alisha [facility] [address] [place], [place] [phone] Social History Tobacco Use Types Packs/Day Years [...] documented as of this encounter Care Teams Turfgrass Management Professor Relationship Specialty Start Date End Date Alisha Hook FNP [address] [place] [address] PCP - General Family Medicine 11/14/21 09/11/23 Marian Crook MD [address] [place] [address] PCP - General Internal Medicine 09/12/23 10/24/24 Marian Crook MD [address] [place] [address] PCP - General Internal Medicine 10/25/24 documented as of this encounter
--- OUTSIDE RECORDS SUMMARY | 2025-02-16 17:40 | XMS_ITS | Encounter Summary ---
Author Organization [employer] Address [address] [facility] 7 [place] [address] Care Team Providers Care Yard Specialist Name Role Phone Marian Crook MD Primary Care Provider + Marian Crook MD Primary Care Provider + Reason for Visit * Reason Onset Date Comments Med Refill 03/25/2024 Encounter Details Date Type Department Care Team (Late st Contact Info) Description 03/25/2024 Refill [facility] MEDICINE [address] [place], [place] [phone] Marian Crook MD [address] [place], [place] [phone] Moderate persistent asthma without complication Social History [...] documented as of this encounter Care Teams Yard Specialist Relationship Specialty Start Date End Date Marian Crook MD [address] [place] [address] PCP - General Internal Medicine 09/12/23 10/24/24 Marian Crook MD [address] [place] [address] PCP - General Internal Medicine 10/25/24 documented as of this encounter
--- OUTSIDE RECORDS SUMMARY | 2025-02-16 17:40 | XMS_ITS | Encounter Summary ---
Author Organization [employer] Address [address] [place] [address] [address] [place] [address] Care Team Providers Care Seamless Tube Drawer Name Role Phone Marian Crook MD Primary Care Provider + Marian Crook MD Primary Care Provider + Reason for Visit * Reason Onset Date Comments FYI 08/03/2024 Encounter Details Date Type Department Care Team ([facility] st Contact Info) Description 08/03/2024 Telephone [facility] MEDICINE 230 [place], [place] [phone] Marian Crook MD [address] [place], [place] [phone] FYI Social History Tobacco Use Types Packs/Day [...] she has an upcoming visit with : [facility] Radiology 09/28 1pm . Should be at registration by 12:[address] [place] [address] documented in this encounter Plan of Treatment Not on file documented as of this encounter Visit Diagnoses Not on filedocumented in this encounter Additional Health Concerns Assessment Noted Time PHQ-9 Depression Total Score: 22 024 2:02 PM EDT documented as of this encounter Care Teams Seamless Tube Drawer Relationship Specialty Start Date End Date Marian Crook MD [address] [place] [address] PCP - General Internal Medicine 09/12/23 10/24/24 Marian Crook MD [address] [place] [address] PCP - General Internal Medicine 10/25/24 documented as of this encounter
--- OUTSIDE RECORDS SUMMARY | 2025-02-16 17:40 | XMS_ITS | Encounter Summary ---
Author Organization [employer] Address [address] [place] [address] 7 [place] [address] Care Team Providers Care Sub Plant Manager Name Role Phone Marian Crook MD Primary Care Provider + Marian Crook MD Primary Care Provider + Reason for Visit * Reason Comments Med Refill Encounter Details Date Type Department Care Team ([facility] st Contact Info) Description 06/05/2024 Refill [facility] MEDICINE [address] [place] [address] Marian Crook MD [address] [place], [place] [phone] Social History Tobacco Use Types Packs/Day Years [...] documented as of this encounter Care Teams Sub Plant Manager Relationship Specialty Start Date End Date Marian Crook MD [address] [place] [address] PCP - General Internal Medicine 09/12/23 10/24/24 Marian Crook MD [address] [place] [address] PCP - General Internal Medicine 10/25/24 documented as of this encounter
--- OUTSIDE RECORDS SUMMARY | 2025-02-16 17:40 | XMS_ITS | Encounter Summary ---
Author Organization [employer] Address [address] [facility] 7 [place] [address] Care Team Providers Care Director Religious Education Name Role Phone Marian Crook MD Primary Care Provider + Reason for Visit * Reason Comments Med Refill Encounter Details Date Type Department Care Team (Late st Contact Info) Description 11/18/2024 Refill [facility] MEDICINE [address] [place] [address] Annette Mitchell, HEMATOLOGY TECHNICIAN [address] [place] [address] Dizziness Social History Tobacco Use Types Packs/Day [...] as of this encounter Care Teams Director Religious Education Relationship Specialty Start Date End Date Marian Crook MD [address] [place] [id number] PCP - General Internal Medicine 10/25/24 documented as of this encounter
--- OUTSIDE RECORDS SUMMARY | 2025-02-16 17:40 | XMS_ITS | Encounter Summary ---
Author Organization [employer] Address [address] [place] [address] 7 [place] [address] Care Team Providers Care Metal Tank Erector Name Role Phone Marian Crook MD Primary Care Provider + Marian Crook MD Primary Care Provider + Reason for Visit * Reason Onset Date Comments Med Refill 03/25/2024 Encounter Details Date Type Department Care Team (Late st Contact Info) Description 03/25/2024 Refill [facility] MEDICINE [address] [place], [place] [phone] Marian Crook MD [address] [place], [place] [phone] Social History Tobacco Use Types Packs/Day Years [...] as of this encounter Care Teams Metal Tank Erector Relationship Specialty Start Date End Date Marian Crook MD [address] [place] [address] PCP - General Internal Medicine 09/12/23 10/24/24 Marian Crook MD [address] [place] [address] PCP - General Internal Medicine 10/25/24 documented as of this encounter
--- OUTSIDE RECORDS SUMMARY | 2025-02-16 17:40 | XMS_ITS | Encounter Summary ---
Author Organization [employer] Address [address] [place] [address] 7 [place] [address] Care Team Providers Care Acute Dialysis Registered Nurse Name Role Phone Marian Crook MD Primary Care Provider + Marian Crook MD Primary Care Provider + Reason for Visit * Reason Comments Med Change Request Encounter Details Date Type Department Care Team ([facility] st Contact Info) Description 06/17/2024 Refill [facility] MEDICINE [address] [place] [address] Marian Crook MD [address] [place], [place] [phone] Social History Tobacco Use Types Packs/Day Years [...] documented as of this encounter Care Teams Acute Dialysis Registered Nurse Relationship Specialty Start Date End Date Marian Crook MD [address] [place] [address] PCP - General Internal Medicine 09/12/23 10/24/24 Marian Crook MD [address] [place] [address] PCP - General Internal Medicine 10/25/24 documented as of this encounter
--- OUTSIDE RECORDS SUMMARY | 2025-02-16 17:40 | XMS_ITS | Encounter Summary ---
Author Organization [employer] [facility] Address [address] [place] [address] 7 [place] [address] Care Team Providers Care Director Media Name Role Phone Marian Crook MD Primary Care Provider + Marian Crook MD Primary Care Provider + Reason for Visit * Reason Comments Med Refill Encounter Details Date Type Department Care Team (Late st Contact Info) Description 11/27/2023 Refill [facility] MEDICINE [address] [place] [address] Marian Crook MD [address] [place], [place] [phone] Social History Tobacco Use Types Packs/Day Years [...] as of this encounter Care Teams Director Media Relationship Specialty Start Date End Date Marian Crook MD [address] [place] [address] PCP - General Internal Medicine 09/12/23 10/24/24 Marian Crook MD [address] [place] [address] PCP - General Internal Medicine 10/25/24 documented as of this encounter
--- OUTSIDE RECORDS SUMMARY | 2025-02-16 17:40 | XMS_ITS | Encounter Summary ---
Author Organization [employer] Address [address] [place] [address] 7 [place] [address] Care Team Providers Care Fast Food Delivery Driver Name Role Phone Marian Crook MD Primary Care Provider + Marian Crook MD Primary Care Provider + Reason for Visit * Reason Onset Date Comments Med Refill 06/02/2024 Encounter Details Date Type Department Care Team ([facility] st Contact Info) Description 06/02/2024 Telephone [facility] MEDICINE [address] [place], [place] [phone] Marian Crook MD [address] [place], [place] [phone] Med Refill Social History Tobacco Use Types [...] documented as of this encounter Care Teams Fast Food Delivery Driver Relationship Specialty Start Date End Date Marian Crook MD [address] [place] [address] PCP - General Internal Medicine 09/12/23 10/24/24 Marian Crook MD [address] [place] [address] PCP - General Internal Medicine 10/25/24 documented as of this encounter
--- OUTSIDE RECORDS SUMMARY | 2025-02-16 17:40 | XMS_ITS | Encounter Summary ---
Author Organization [employer] Address [address] [place] [address] 7 [place] [address] Care Team Providers Care Horse Race Starter Name Role Phone Marian Crook MD Primary Care Provider + Marian Crook MD Primary Care Provider + Reason for Visit * Reason Onset Date Comments Med Refill 03/25/2024 Encounter Details Date Type Department Care Team (Late st Contact Info) Description 03/25/2024 Refill [facility] MEDICINE [address] [place], [place] [phone] Claritza Leonard DO [address] [place], [place] [phone] Social History Tobacco Use Types Packs/Day Years [...] documented as of this encounter Care Teams Horse Race Starter Relationship Specialty Start Date End Date Marian Crook MD [address] [place] [address] PCP - General Internal Medicine 09/12/23 10/24/24 Marian Crook MD [address] [place] [address] PCP - General Internal Medicine 10/25/24 documented as of this encounter
--- OUTSIDE RECORDS SUMMARY | 2025-02-16 17:40 | XMS_ITS | Clinical Summary ---
Author Organization [employer] Address [address] [place] [address] Care Team Providers Care Controller Mechanic Name Role Phone Marian Crook MD [...] (twelve) hours. 30 g 12/23/19 24 Active cetirizine (ZyrTEC) 10 MG tablet [...] 10/07/19 25 Active meclizine (Antivert) 25 MG tabletIndication s:Dizziness Take 0.5 tablets (12.5 mg) by mouth if needed in the morning, at noon, and at bedtime for dizziness. 30 tablet 3 11/20/19 25 025 Active Diclofenac Sodium 1 % gelIndications:C hronic midline low back pain, unspecified whether sciatica present APPLY 2 GRAMS TOPICALLY IN THE MORNING, AT NOON, IN THE EVENING AND AT BEDTIME NEEDED FOR PAIN 100 g 2 11/20/19 25 Active midodrine (Proamatine) 2.5 MG tablet Take 1 tablet (2.5 mg) by mouth 3 times daily. 270 tablet 1 01/08/20 25 Active albuterol 108 (90 Base) MCG/ACT inhalerIndicatio ns:Moderate persistent asthma without complication Inhale 2 puffs every 6 (six) hours if needed for shortness of breath or wheezing. 18 g 3 01/08/20 25 Active lidocaine (Lidoderm) 5 % patch Apply 1 patch topically Once per day. Remove & discard patch within 12 hours or as directed by MD. 30 patch 2 01/08/20 25 Active fluticasone (Flonase) 50 MCG/ACT nasal spray Administer 1 spray into each nostril Once per day. 16 g 2 01/08/20 25 Active meloxicam (Mobic) 7.5 MG tablet TAKE 1 TABLET BY MOUTH EVERY DAY 30 tablet 01/20/20 25 Active montelukast (Singulair) 10 MG tablet TAKE 1 TABLET BY MOUTH EVERY MORNING 90 tablet 1 01/21/20 25 Active montelukast (Singulair) 10 MG tablet TAKE 1 TABLET BY MOUTH EVERY MORNING 90 tablet 1 06/08/19 25 025 Discontinued meloxicam (Mobic) 7.5 MG tablet TOME 1 TABLETA POR VIA ORAL TODOS LOS CARDOSO 30 tablet 12/15/19 25 025 Discontinued clotrimazole-bet amethasone (Lotrisone) cream Apply topically 2 times daily for 28 days. 30 g 1 01/08/20 25 025 Active Problems Problem Noted Date [...] medication for now and to follow-up with system planning engineer. Follow-up with me in 3 months Will need additional cardiac evaluation if renal insufficiency workup is negative Assessment & Plan (10/12/2024 2:20 PM EDT): Unclear if related to adrenal insufficiency, POTS,? Diabetes insipidus or other, we will refer to system planning engineer. Started on low-dose midodrine, will slowly titrate [...] related to patient's menorrhagia(she is followed by DISBURSEMENT CLERK) + significant diuresis. Patient will have increase [...] for this letter, she has appt with [facility] next week. I told her to reach out to legal consultant to help her write a letter so that housing give her some more time to get the letter from MH provider. She will res tart Effexor for anxiety and fu with me in 6m Encounters Date Type Department Care Team Description 02/08/2025 6:20 PM EST Office Visit [facility] [address] [place] [address] Adriana Brannon MD BRBPR (bright red blood per rectum) (Primary Dx) 02/08/2025 Travel 01/21/2025 Orders Only GENERIC EXTERNAL DATA DEPARTMENT Provider, Generic External Data 01/20/2025 Orders Only GENERIC EXTERNAL DATA DEPARTMENT Provider, Generic External Data 01/20/2025 Telephone [facility] [address] [place] [address] Marian Crook MD Nurse Triage 01/20/2025 Refill [facility] [address] [place] [address] Marian Crook MD 01/19/2025 Refill [facility] [address] [place] [phone] Marian Crook MD 01/07/2025 9:00 AM EDT Office Visit [facility] [address] [place] [phone] Marian Crook MD Orthostatic hypotension (Primary Dx); Vertigo; Class 1 obesity due to excess calories with serious comorbidity and body mass index (BMI) of 32.0 to 32.9 in adult; Moderate persistent asthma without complication; Tinea corporis; Chronic low back pain without sciatica, unspecified back pain laterality; Dietary counseling; Exercise counseling 01/07/2025 Travel 01/06/[address] [address] Marian Crook MD CHART PREP 01/03/2025 9:00 AM EDT Office Visit [facility] [address] [place] [address] Ramon, Annette, OD Meibomian gland disease of both eyes, unspecified eyelid (Primary Dx); Dermatochalasis of both upper eyelids; Presbyopia 01/03/2025 Travel 12/29/2024 Patient Outreach [facility] [address] [place] [phone] Marian Crook MD Pre-visit Planning (SDOH screening completed on 06/23/2024) 12/13/2024 Refill [facility] [address] [place] [phone] Marian Crook MD 11/19/2024 3:30 PM EDT Office Visit [facility] [address], [place] [phone] Annette Mitchell CNP Dizziness; Chronic midline low back pain, unspecified whether sciatica present 11/19/2024 Travel 11/19/2024 Telephone [facility] [address], [place] [phone] Marian Crook MD chart prep 11/18/2024 Refill [facility] [address] [place] [phone] Annette Mitchell, TALI Dizziness from Last 3 Months Immunizations Immunization Administration [...] Sign Reading Time Taken Comments Blood Pressure 105/67 02/08/2025 5:51 PM EST Pulse 68 02/08/2025 5:51 PM EST Temperature 36.8 C (98.2 F) 02/08/2025 5:51 PM EST Respiratory Rate 18 02/08/2025 5:51 PM EST Oxygen Saturation 100% 02/08/2025 5:51 PM EST Inhaled Oxygen Concentration - - Weight 83 kg (183 lb) 02/08/2025 5:51 PM EST Height 160 cm (5' 3 ) 02/08/2025 5:51 PM EST Body Mass Index 32.42 02/08/2025 5:51 PM EST Plan of Treatment Health Maintenance [...] 12/04/2024 12/05/2023, 09/21, 09/29/2017 FOBT 02/01/2025 02/02/2024 RSV Patients and Patients Aged 60 years or older (1 - Risk 50-74 years 1-dose series) 2025 Zoster Vaccines (1 of 2) 2025 Depression Monitoring 04/14/2025 10/12/2024, 025 SDOH Screening 06/23/2025 06/23/2024 Disability Screening 11/04/2025 11/04/2024 Alcohol/Substance Use Screening 01/07/2026 01/07/2025 Tobacco Screening 02/08/2026 02/08/2025 Lipid Panel 10/17/2026 10/17/2021 Colorectal Cancer Screening 02/01/2027 FIT DNA/Cologuard 02/01/2027 02/02/2024 Cervical Cancer Screening 05/05/2029 HPV/Cotest 05/05/2029 05/05/2024, 06/06/2020 Pap Smear 05/05/2029 05/05/2024, 06/06/2020 DTaP/Tdap/Td Vaccines (3 - Td or Tdap) 01/11/2034 01/12/2024, 12/03/2012, 10/11/2008, Additional history exists Pneumococcal Vaccine: 50+ Years Completed 01/12/2024, 10/11/2013 [...] Name Priority Date/Time Associated Diagnosis Comments POCT HEMOGLOBIN Routine 02/08/2025 6:29 PM EST BRBPR (bright red blood per rectum) ACTH, PLASMA Routine 01/21/2025 8:10 AM EDT DHEA SULFATE Routine 01/21/2025 8:10 AM EDT CORTISOL RANDOM Routine 01/21/2025 8:10 AM EDT BASIC METABOLIC PANEL Routine 01/21/2025 8:10 AM EDT US VENOUS DUPLEX LE RT Routine 6:35 PM EDT XR ANKLE 3+ VIEWS RIGHT Routine 01/20/2025 3:20 PM EDT XR FOOT 3+ VIEWS RIGHT Routine 3:20 PM EDT COMPREHENSIVE METABOLIC PANEL Routine 01/20/2025 3:19 PM EDT APTT Routine 01/20/2025 3:19 PM EDT PROTHROMBIN TIME-INR Routine 01/20/2025 3:19 PM EDT CBC WITH AUTO DIFFERENTIAL Routine 01/20/2025 3:19 PM EDT HPV DNA, LOW/HIGH RISK Routine [...] Relevant to Health Maintenance Results * POCT Hemoglobin (02/08/2025 6:29 PM EST) Hemoglobin 14.4 12.0 - 15.0 QC Media Lot # [id number] Lot# Expiration Date Blood 02/08/2025 6:29 PM EST Adriana Brannon MD POINT OF CARE TEST ENTER/E DIT ORDERABLES Final Result * Cortisol Random (01/21/2025 8:10 AM EDT) Cortisol Random 8.2 ug/dL [facility] Comment:Reference Range*: Be fore 10 am 6.2-19.4 ug/dL After 5 pm 2.3-11.9 ug/dL*Please interpret above results accordingly.This test was performed using the Thomason chemiluminescentmethod. Values obtained from different assay methods cannotbe used interchangeably.Patients receiving fludrocortisone, prednisolone orprednisone may show artificially elevated cortisol valuesdue to cross-reactivity. 01/21/2025 8:10 AM EDT 01/21/2025 8:10 AM EDT us Generic External Data Provider LAB BLOOD ORDERAB LES Final Result [facility] [address] [place] [phone] * DHEA Sulfate (01/21/2025 8:10 AM EDT) DHEA Sulfate 53 15 - 205 mcg/dL [facility] Comment:THIS TEST WAS PERFOR MED AT:[facility] [address] [id number] OLIVAS MD 01/21/2025 8:10 AM EDT 01/21/2025 8:10 AM EDT Generic External Data Provider LAB BLOOD ORDERAB LES Final Result Performing Organization Address [facility]/ZIP Co de Phone Number [facility] [address] [place] [phone] * ACTH, Plasma (01/21/2025 8:10 AM EDT) Pathologist [facility] ACTH, Plasma 17 6 - 50 pg/mL [facility] Comment:Reference range appl ies only to specimens collectedbetween 7am-10am.THIS TEST WAS PERFORMED AT:[facility] [place] [address]NIUPOCRMAGALY ZARATE MD,PHD 01/21/2025 8:10 AM EDT 01/21/2025 8:10 AM EDT Generic External Data Provider LAB BLOOD ORDERAB LES Final Result Performing Organization Address [facility]/ZIP Co de Phone Number [facility] [address] [place] [phone] * (ABNORMAL) Basic Metabolic Panel (01/21/2025 8:10 AM EDT) Pathologist [facility] Sodium 140 135 - 145 mmol/L [facility] Potassium 3.8 3.3 - 5.1 mmol/L [facility] Chloride 109(H) 96 - 108 mmol/L [facility] Carbon Dioxide 26 22 - 29 mmol/L [facility] Anion Gap 9(L) 12 - 20 [facility] Urea Nitrogen (BUN) 16 9 - 16 mg/dL [facility] Creatinine, Serum 0.76 0.5 - 1.4 mg/dL [facility] Estimated Glomerular Filt Rate >60 [facility] Comment:Chronic Kidney Disea se: Estimated GFR < 60 mL/min/1.73d4Bnpqkq Kidney Disease: Estimated GFR < 15 mL/min/1.73m2 Glucose 90 60 - 115 mg/dL [facility] Calcium 9.0 8.4 - 10.2 mg/dL [facility] 01/21/2025 8:10 AM EDT 01/21/2025 8:10 AM EDT us Generic External Data Provider LAB BLOOD ORDERAB LES Final Result Performing Organization Address City/State/[facility] Co de Phone Number [facility] [address] [place] [phone] * US VENOUS DUPLEX LE RT (01/20/2025 6:35 PM EDT) Anatomical Region Laterality Modality Abdomen Ultrasound 01/20/2025 6:35 PM EDT Narrative 01/20/2025 6:35 PM EDT [place] [address] Ultrasound Report Signed Patient: Corina Nielsen MR#: [id number] : 1975 Acct:[id number] Age/Sex: 49 / F ADM Date: 01/20/25 Loc: .ED Attending Dr: Ordering Physician: Devin Shah Date of Service: 01/20/25 Procedure(s): US venous duplex LE RT Accession Number(s): [id number] cc: Devin Shah; Marian Crook MD Reason [...] in OV> 01/20/251834 DD/ 34 TD/TT: 01/20/251834 Operational Trainer: Procedure Note Donotuseinterpreter, Image - 01/20/[address] [address] Ultrasound Report Signed Patient: Yarelis Nielsen#: [id number] : 1975Acct:[id number] Age/Sex: 49 / FADM Date: 01/20/25 Loc: .ED Attending Dr: Ordering Physician: Devin Shah Date of Service: 01/20/25 Procedure(s): US venous duplex LE RT Accession Number(s): [id number] cc: Devin Shah; Marian Crook MD Reason [...] in OV> 01/20/251834 DD/ 34 TD/TT: 01/20/251834 Operational Trainer: us [facility] External Provider IMG US PROCEDURES Final Result * XR Foot 3+ Views Right (01/20/2025 3:20 PM EDT) Anatomical Region Laterality Modality Lower Extremities, Foot Right Radiogra phic Imaging 01/20/2025 3:20 PM EDT Narrative 01/20/2025 3:41 PM EDT [address] [place] [address] XRay Report Signed Patient: Corina Nielsen MR#: [id number] : 1975 Acct:[id number] Age/Sex: 49 / F ADM Date: 01/20/25 Loc: HO.ED Attending Dr: Ordering Physician: Devin Shah Date of Service: 01/20/25 Procedure(s): XR foot RT min 3V Accession Number(s): [id number] cc: Devin Shah; Marian Crook MD Reason [...] 01/20/25 1539 DD/ 1520 TD/TT: 01/20/25 1530 Operational Trainer: MARILYN Procedure Note Donotuseinterpreter, Image - 01/20/[address] [address] XRay Report Signed Patient: Baljit NielsenR#: [id number] : 1975Acct:[id number] Age/Sex: 49 / FADM Date: 01/20/25 Loc: HO.ED Attending Dr: Ordering Physician: Devin Shah Date of Service: 01/20/25 Procedure(s): XR foot RT min 3V Accession Number(s): [id number] cc: Devin Shah; Marian Crook MD Reason [...] 01/20/25 1539 DD/ 1520 TD/TT: 01/20/25 1530 Operational Trainer: MARILYN [facility] External Provider IMG XR PROCEDURES Final Result * XR Ankle 3+ Views Right (01/20/2025 3:20 PM EDT) Anatomical Region Laterality Modality Lower Extremities, Ankle Right Radiogr aphic Imaging 01/20/2025 3:20 PM EDT Narrative 01/20/2025 3:42 PM EDT [address] [address] XRay Report Signed Patient: Corina Nielsen MR#: [id number] : 1975 Acct:[id number] Age/Sex: 49 / F ADM Date: 01/20/25 Loc: .ED Attending Dr: Ordering Physician: Devin Shah Date of Service: 01/20/25 Procedure(s): XR ankle RT min 3V Accession Number(s): [id number] cc: Devin Shah; Marian Crook MD Reason [...] by Diane Pichardo MD in OV> 01/20/25 153 DD/ 152 TD/TT: 01/20/251529 Operational Trainer: MARILYN Procedure Note Donotuseinterpreter, Image - 01/20/[address] [address] XRay Report Signed Patient: Yarelis Nielsen#: [id number] : 1975Acct:[id number] Age/Sex: 49 / FADM Date: 01/20/25 Loc: .ED Attending Dr: Ordering Physician: Devin Shah Date of Service: 01/20/25 Procedure(s): XR ankle RT min 3V Accession Number(s): [id number] cc: Devin Shah; Marian Crook MD Reason [...] 01/20/25 1539 DD/ 1520 TD/TT: 01/20/25 153 Operational Trainer: MARILYN [facility] External Provider IMG XR PROCEDURES Final Result * CBC auto differential (01/20/2025 3:19 PM EDT) White Blood Count 7.1 4.8 - 10.8 X10*3/uL [facility] Red Blood Count 4.23 4.20 - 5.50 X10*6/uL [facility] Hemoglobin 13.0 12.0 - 16.0 g/dl [facility] Hematocrit 39.5 37.0 - 47.0 % [facility] Mean Corpuscular Volume 93.4 80.0 - 98.0 fL [facility] Mean Corpuscular Hemoglobin 30.7 27.0 - 33.0 pg [facility] Mean Corpuscular HGB Conc 32.9 31.0 - 35.0 g/dl [facility] Red Cell Distribution Width 12.5 11.0 - 16.0 % [facility] Platelet Count 247 160 - 400 X10*3/uL [facility] Mean Platelet Volume 10.6 9.4 - 12.3 fL [facility] Neutrophils Percent Auto 63.7 45 - 73 % [facility] Imm Gran Pct Auto 0.3 0.0 - 0.4 % [facility] Lymphocytes Percent Auto 25.2 20 - 40 % [facility] Monocytes Percent Auto 6.3 2 - 11 % [facility] Eosinophils Percent Auto 3.9 0 - 4 % [facility] Basophils Percent Auto 0.6 0 - 2 % [facility] NRBC Pct Auto 0.0 0.0 - 0.2 /100WBC [facility] Neutrophils Absolute Auto 4.5 2.0 - 8.3 x10*3/uL [facility] Imm Gran Abs Auto 0.02 0.00 - 0.03 X10*3/uL [facility] Lymphocytes Absolute Auto 1.8 1.2 - 4.9 X10*3/uL [facility] Monocytes Absolute Auto 0.5 0.1 - 1.2 X10*3/uL [facility] Eosinophils Absolute Auto 0.3 0.0 - 0.4 X10*3/uL [facility] Basophils Absolute Auto 0.0 0.0 - 0.2 X10*3/uL [facility] NRBC Abs Auto 0.000 0.0 - 0.012 X10*3/uL [facility] 01/20/2025 3:19 PM EDT 01/20/2025 3:22 PM EDT us Generic External Data Provider LAB BLOOD ORDERAB LES Final Result Performing Organization Address [facility] Co de Phone Number [facility] [address] [place] [phone] * Partial Thromboplastin Time, Activated (APTT) (01/20/2025 3:19 PM EDT) Partial Thromboplastin Time 30.6 26.7 - 34.1 SEC [facility] 01/20/2025 3:19 PM EDT 01/20/2025 3:22 PM EDT us Generic External Data Provider LAB BLOOD ORDERAB LES Final Result Performing Organization Address [facility] Phone Number [facility] [address] [place] [phone] * Prothrombin Time-INR (01/20/2025 3:19 PM EDT) Prothrombin Time 11.9 10.9 - 12.4 SEC [facility] INTERNATIONAL NORM RATIO 1.0 0.9 - 1.1 [facility] Comment:INTERNATIONAL NORMAL IZED [...] Result Performing Organization Address [facility] Co de Phone Number [facility] [address] [place] [phone] * (ABNORMAL) Comprehensive Metabolic Panel (01/20/2025 3:19 PM EDT) Sodium 141 135 - 145 mmol/L [facility] Potassium 4.1 3.3 - 5.1 mmol/L [facility] Chloride 110(H) 96 - 108 mmol/L [facility] Carbon Dioxide 27 22 - 29 mmol/L [facility] Anion Gap 8(L) 12 - 20 [facility] Urea Nitrogen (BUN) 16 9 - 16 mg/dL [facility] Creatinine, Serum 0.91 0.5 - 1.4 mg/dL [facility] Creatinine Clr Calc Pharmacy 74.5 [facility] Comment:Provided height and weight: 160.02 cm,79.379 kg.eGFR (calculated from the MDRD study equation) and eCrCl(calculated from the Cockcroft-Gault equation) are based ondifferent parameters and may not yield comparable results.If eCrCl result is absurd, please check patient'sheight/weight. Estimated Glomerular Filt Rate >60 [facility] Comment:Chronic Kidney Disea se: Estimated GFR < 60 mL/min/1.82f7Phgtxv Kidney Disease: Estimated GFR < 15 mL/min/1.73m2 Glucose 91 60 - 115 mg/dL [facility] Calcium 8.9 8.4 - 10.2 mg/dL [facility] Bilirubin, Total 0.2 0.0 - 1.0 mg/dL [facility] Aspartate Amino Transferase 25 5 - 31 U/L [facility] Alanine Aminotransferase 18 0 - 31 U/L [facility] Total Protein 7.2 6.5 - 8.0 g/dL [facility] Albumin Level 4.3 3.5 - 5.0 g/dL [facility] Alkaline Phosphatase 69 39 - 117 U/L [facility] 01/20/2025 3:19 PM EDT 01/20/2025 3:22 PM EDT us Generic External Data Provider LAB BLOOD ORDERAB LES Final Result Performing Organization Address [facility] Co de Phone Number [facility] [address] [place] [phone] * HPV DNA, Low/High Risk (05/05/2024 10:22 AM EST) HPV High Risk Negative Negative [facility] HPV Genotype 16 Negative Negative [facility] HPV Genotype 18 Negative Negative [facility] Comment:HPV testing performe d at [facility] (CLIA#[id number]), [address] [place] [phone].Testing for HPV was performed using the [employer]system. The presence of HPV in the female [...] Result Performing Organization Address [facility]/ZIP Co de Phone Number [facility] [address] [place] [phone] * Pap Smear (05/05/2024 10:22 AM EST) 05/05/2024 10:2 2 AM EST 05/06/2024 6:10 AM EST Narrative [facility] - 05/11/2024 9:16 AM EST ----- ------- Name: Corina Nielsen Age/Sex: 49/F : 1975 Unit#: [id number] Attend Dr: Pj Posadas MD Re05/05/24 Status: DEP REF Location: [facility] Disch: ----- ------- SPEC : [id number] RECD: 05/06/24 STATUS: YESSI GALLOSonam NUM: [id number] LAURA: 05/05/24-[address] [facility] [address]: Pj Posadas MD ENTERED: 05/06/24 SP [...] ThinPrep-Cervical Copies To: Marian Crook MD [address] [phone] Pj Posadas MD [facility] [address] [place] [address] Drive [address] [place] [phone] ----- ------- Signed (signature on file) Shankar SCARLET Wylie ([facility]) 05/11/24 0916 ----- ------- END OF REPORT Generic External Data Provider LAB CYTOLOGY ORDE RABLES Final Result Performing Organization Address [facility] Co de Phone Number [facility] [address] [place] [phone] * Hepatitis C Ab (03/27/2024 10:19 AM EST) Pathologist [facility] Hepatitis C Antibody Nonreactive Nonreactive [facility] Comment:Antibodies to HCV no t detected; does not exclude early acuteHCV infection. 03/27/2024 10:1 9 AM EST 03/27/2024 10:19 AM EST Generic External Data Provider LAB BLOOD ORDERAB LES Final Result Performing Organization Address [facility] de Phone Number [facility] [address] [place] [phone] * HIV-1/2 Antigen and Antibodies, Fourth Generation, with Reflexes (03/27/2024 10:19 AM EST) HIV AB/AG Nonreactive Nonreactive [facility] Comment:HIV-1 p24 Ag and/or HIV-1/HIV-2 Ab not detected.A test result that is nonreactive does not exclude thepossibility of exposure to or infection with HIV-1 and/orHIV-2. Nonreactive results in this assay for individualswith prior exposure to HIV-1 and/or HIV-2 may be due toantigen and antibody levels that are below the limit ofdetection of this assay.The AmplidataniPadlet HIV Ag/Ab Combo assay result andsupplemental assay results should be interpreted inconjunction with the patient's clinical presentation,history and other laboratory results. If the results areinconsistent with clinical evidence, additional testing issuggested to confirm the result. 03/27/2024 10:1 9 AM EST 03/27/2024 10:19 AM EST us Generic External Data Provider LAB BLOOD ORDERAB LES Final Result [facility] [address] [place] [phone] * Cologuard?? colon cancer screening (02/02/2024 9:15 AM EST) Cologuard Result Negative Negative 02/08/20 2:05 AM EST [facility] (CLIA #:[id number]) Comment: NEGATIVE TEST RESULT. A negative Cologuard [...] (Isadora Rodriguez al, N Engl J Med 2014;370(14):2677-1205) The normal value (reference range) for this assay is negative. COLOGUARD RE-SCREENING RECOMMENDATION: Periodic colorectal cancer screening is an important part of preventive healthcare for asymptomatic individuals at average risk for colorectal cancer. Following a negative Cologuard result, the [place] [employer] and U.S. Multi-Society Task Force screening guidelines recommend a Cologuard re-screening interval of 3 years. References: [place] [employer] Guideline for Colorectal Cancer Screening: https://www.cancer.org/cancer/kuosm-ktnddp-kceqxp/vywnxnccu-evukhslra-lwegtwu/ac s-rec ommendations.html.; Hector DK, Julio Cesar CR, Janet TroncosoK, Colorectal Cancer Screening: Recommendations for Physicians and Patients from the [place]. Multi-Society Task Force on Colorectal Cancer Screening , Am J Gastroenterology 2017; 112:4653-2682. TEST DESCRIPTION: Composite algorithmic analysis of stool [...] (Isadora Rodriguez al, N Engl J Med 2014;370(14):8824-9094.) Cologuard may produce a false negative or false positive result (no colorectal cancer or precancerous polyp present at colonoscopy follow up). A negative Cologuard test result does not guarantee the absence of CRC or advanced adenoma (pre-cancer). The current Cologuard screening interval is every 3 years. ([place] [employer] and [place].S. Multi-Society Task Force). Cologuard performance data in a 10,000 patient pivotal study using colonoscopy as the reference method can be accessed at the following location: www.[employer]/results. Additional description of the Cologuard test process, warnings and precautions can be found at www.[employer].com. Stool specimen (specimen) Rectal contents / Unknown 02/02/2024 9:15 AM EST 02/03/2024 10:52 AM EST Marian Crook MD LAB MOLECULAR DIAGNOSTIC S ORDERABLES Final Result [facility] (CLIA #:[id number]) [place] [address], * BI Mammogram Screening Tomosynthesis Bilateral (12/05/2023 3:30 PM EDT) Anatomical Region Laterality Modality Breast Bilateral Mammography 12/05/2023 3:30 PM EDT Narrative 12/19/2023 8:58 AM EDT [facility] [address] [place], [place] [address] Mammography Report Signed Patient: Corina Nielsen MR#: [id number] : 1975 Acct:[id number] Age/Sex: 48 / F ADM Date: 12/05/23 Loc: HO.MAMMO Attending Dr: Marian Crook MD Ordering Physician: Marian Crook MD Results: 1Ne gative Date of Service: 12/05/23 Follow Up: 1 Year From [facility] ina Mammogram Procedure(s): MM tomosynthesis screening BI Accession Number(s): [id number] cc: Marian Crook MD EXAMINATION: MM SCREENING [...] 12/19/23 0855 DD/ 1530 TD/TT: 12/05/23 1540 Operational Trainer: Procedure Note Donotuseinterpreter, Image - [facility]/19/[facility] [address] [place] [address] Mammography Report Signed Patient: Yarelis Nielsen#: [id number] : 1975Acct:[id number] Age/Sex: 48 / FADM Date: 12/05/23 Loc: .MAMMO Attending Dr: Marian Crook MD Ordering Physician: Marian Crook MDResults: 1Ne gative Date of Service: 12/05/23Follow Up: 1 Year From Orig inal Mammogram Procedure(s): MM tomosynthesis screening BI Accession Number(s): [id number] cc: Marian Crook MD EXAMINATION: MM SCREENING [...] 12/19/23 0855 DD/ 1530 TD/TT: 12/05/23 1540 Operational Trainer: us Marian Crook MD IMG BI PROCEDURES [...] LDL-C. Camacho SS et al. TAYO. 2013;310(19): 9334-5529 (http://education.[employer].com/faq/COJ219) Non-HDL Cholesterol 100 <130 mg/dL (calc) [facility] Comment: For patients with diabetes plus 1 major ASCVD risk factor, treating to a non-HDL-C goal of <100 mg/dL (LDL-C of <70 mg/dL) is considered a therapeutic option. Triglycerides 56 <150 mg/dL [facility] 10/17/2021 2:37 PM EDT us Irma Arteaga NP LAB BLOOD ORDERABLES Final Resu lt [facility] [address] [place] [address], from Last 3 Months or Most Recently Relevant to Health Maintenance Insurance [facility] 3 Care Teams Controller Mechanic Relationship Specialty Start Date End Date Marian Crook MD [address] [place] [address] PCP - General Internal Medicine 10/25/24
== END 2025-02-16 15:58 | disposition home or self-care (01) ==
LOC: HO.HGI 15:08
PROVIDERS: Visit Provider Internal Medicine
DX: K62.5 Hemorrhage of anus and rectum (principal); K64.9 Unspecified hemorrhoids; R19.4 Change in bowel habit
CPT/HCPCS: 99214

== ENCOUNTER → 2025-02-16 15:07 | Outpatient (BNVA) | payer OTHER, SELFPAY | PROVIDERS: Visit Provider Internal Medicine | DX: K62.5 Hemorrhage of anus and rectum (principal); K64.8 Other hemorrhoids; R19.4 Change in bowel habit | CPT/HCPCS: 99212 ==

== ENCOUNTER → 2025-02-28 16:30 | Outpatient (BNV) | payer OTHER, SELFPAY | PROVIDERS: PCP Internal Medicine; Visit Provider Radiology Body Imaging | DX: Z12.31 Encounter for screening mammogram for malignant neoplasm of breast (principal) | CPT/HCPCS: 77063; 77067 ==

== ENCOUNTER 2025-02-28 16:34 | Outpatient (REF) | payer OTHER, SELFPAY ==
--- NOTE | ~2025-02-28 | MM_ITS ---
EXAMINATION: MM SCREENING DIGITAL BREAST TOMOSYNTHESIS, BILATERAL CLINICAL INFORMATION: Screening. Asymptomatic. COMPARISON: Comparison made to multiple prior, most recent December 05, 2023, and most remote May 16, 2015. TECHNIQUE: Digital breast tomosynthesis is performed in mediolateral oblique and craniocaudal views along with computer-aided detection (CAD). Synthesized 2D images are generated from the tomosynthesis. FINDINGS: BREAST COMPOSITION: There are scattered areas of fibroglandular density. BILATERAL BREASTS: No significant masses, suspicious calcifications or other abnormalities are seen in either breast. MM/MM tomosynthesis screening BI IMPRESSION: BILATERAL BREASTS: Negative, no mammographic evidence of malignancy. Normal interval follow-up is recommended in 12 months. ASSESSMENT: BI-RADS: Category 1: Negative RECOMMENDATION: Routine annual mammography screening. FOLLOW-UP: 1 year F/U This examination should not preclude the clinical evaluation of a suspicious palpable abnormality. This patient's information was entered into a reminder system with a target due date for their next mammogram. Electronically signed by: Kevin Akers MD 02/28/2025 08:55 PM [facility]
--- OUTSIDE RECORDS SUMMARY | 2025-03-01 02:18 | XMS_ITS | Encounter Summary ---
Author Organization [email or web address] Address [address] [facility] 7 [place] [address] Care Team Providers Care Resident Physician Name Role Phone Marian Crook MD Primary Care Provider + Marian Crook MD Primary Care Provider + Reason for Visit * Reason Onset Date Comments Med Refill 03/25/2024 Encounter Details Date Type Department Care Team (Late st Contact Info) Description 03/25/2024 Refill [facility] MEDICINE [address] [place], [place] [phone] Marian Crook MD [address] [place], [place] [phone] Moderate persistent asthma without complication Social History [...] documented as of this encounter Care Teams Resident Physician Relationship Specialty Start Date End Date Marian Crook MD [address] [place] [address] PCP - General Internal Medicine 09/12/23 10/24/24 Marian Crook MD [address] [place] [address] PCP - General Internal Medicine 10/25/24 documented as of this encounter
--- OUTSIDE RECORDS SUMMARY | 2025-03-01 02:18 | XMS_ITS | Encounter Summary ---
Author Organization [employer] Address [address] [place] [address] 7 [place] [address] Care Team Providers Care Jewel Lathe Operator Name Role Phone Marian Crook MD Primary Care Provider + Marian Crook MD Primary Care Provider + Reason for Visit * Reason Comments Med Change Request Encounter Details Date Type Department Care Team ([facility] st Contact Info) Description 06/17/2024 Refill [facility] MEDICINE [address] [place] [address] Marian Crook MD [address] [place], [place] [phone] Social History Tobacco Use Types Packs/Day Years [...] documented as of this encounter Care Teams Jewel Lathe Operator Relationship Specialty Start Date End Date Marian Crook MD [address] [place] [address] PCP - General Internal Medicine 09/12/23 10/24/24 Marian Crook MD [address] [place] [address] PCP - General Internal Medicine 10/25/24 documented as of this encounter
--- OUTSIDE RECORDS SUMMARY | 2025-03-01 02:18 | XMS_ITS | Clinical Summary ---
Author Organization [facility] Address [address] [place] [address] Phone Care Team Providers Care Acute Specialist Name Role Phone Marian Crook MD Primary Care Provider [phone] Encounters Date Type Department Care Team Description 12/21/2024 Telephone [facility] Cardiology [facility] [address] [place] [address] Marian Crook MD 12/21/2024 Telephone [place] [address] [place] [phone] Marian Crook MD from Last 3 Months [...] age to complete this topic Insurance [facility] Care Teams Acute Specialist Relationship Specialty Start Date End Date Marian Crook MD [address] [place] [phone] PCP - General Internal Medicine 07/08/24
--- OUTSIDE RECORDS SUMMARY | 2025-03-01 02:18 | XMS_ITS | Encounter Summary ---
Author Organization [employer] Address [address] [facility] 7t [place] [address] Care Team Providers Care Story Teller Name Role Phone Marian Crook MD Primary Care Provider + Encounter Details Date Type Department Care Team ([facility] st Contact Info) Description 02/28/2025 Orders Only [facility] [address] [place], [place] [phone] Marian Crook MD [address] [place], [place] [phone] Social History Tobacco Use Types Packs/Day Years [...] Procedure Name Priority Date/Time Associated Diagnosis Comments BI MAMMOGRAM SCREENING TOMOSYNTHESIS BILATERAL Routine 02/28/2025 4:40 PM EST documented in this encounter Results * BI Mammogram Screening Tomosynthesis Bilateral (02/28/2025 4:40 PM EST) Anatomical Region Laterality Modality Breast Bilateral Mammography 02/28/2025 4:40 PM EST Narrative 02/28/2025 8:58 PM EST [facility] [address] [place] [address] Mammography Report Signed Patient: Corina Nielsen MR#: [id number] : 1975 Acct:[id number] Age/Sex: 50 / F ADM Date: 02/28/25 Loc: HO.MAMMO Attending Dr: Marian Crook MD Ordering Physician: Marian Crook MD Results: 1Ne gative Date of Service: 02/28/25 Follow Up: 1 Year From [facility] Mammogram Procedure(s): MM tomosynthesis screening BI Accession Number(s): [id number] cc: Marian Crook MD Reason For Exam: SCREENING EXAMINATION: MM SCREENING DIGITAL BREAST TOMOSYNTHESIS, BILATERAL CLINICAL INFORMATION: Screening. Asymptomatic. COMPARISON: Comparison made to multiple prior, most recent December 05, 2023, and most remote May 16, 2015. TECHNIQUE: Digital breast tomosynthesis is performed in mediolateral oblique and craniocaudal views along with computer-aided detection (CAD). Synthesized 2D images are generated from the tomosynthesis. FINDINGS: BREAST COMPOSITION: There are scattered areas of fibroglandular density. BILATERAL BREASTS: No significant masses, suspicious calcifications or other abnormalities are seen in either breast. MM/MM tomosynthesis screening BI IMPRESSION: BILATERAL BREASTS: Negative, no mammographic evidence of malignancy. Normal interval follow-up is recommended in 12 months. ASSESSMENT: BI-RADS: Category 1: Negative RECOMMENDATION: Routine annual mammography screening. FOLLOW-UP: 1 year F/U This examination should not preclude the clinical evaluation of a suspicious palpable abnormality. This patient's information was entered into a reminder system with a target due date for their next mammogram. Electronically signed by: Kevin Akers MD 02/28/2025 08:55 PM EST Dictated By: Kevin Akers MD Signed By: <Electronically signed by Kevin Akers MD in OV> 02/28/252054 DD/ 1640 TD/TT: 02/28/25 1645 Patient Access Registrar: Procedure Note Donotuseinterpreter, Image - [facility]/28/[facility] [address] [place], [place] [address] Mammography Report Signed Patient: Yarelis Nielsen#: [id number] : 1975Acct:[id number] Age/Sex: 50 / FADM Date: 02/28/25 Loc: HO.MAMMO Attending Dr: Marian Crook MD Ordering Physician: Marian Crook MDResults: 1Ne gative Date of Service: 02/28/25Follow Up: 1 Year From [facility] Mammogram Procedure(s): MM tomosynthesis screening BI Accession Number(s): [id number] cc: Marian Crook MD Reason For Exam: SCREENING EXAMINATION: MM SCREENING DIGITAL BREAST TOMOSYNTHESIS, BILATERAL CLINICAL INFORMATION: Screening. Asymptomatic. COMPARISON: Comparison made to multiple prior, most recent December 05, 2023, and most remote May 16, 2015. TECHNIQUE: Digital breast tomosynthesis is performed in mediolateral oblique and craniocaudal views along with computer-aided detection (CAD). Synthesized 2D images are generated from the tomosynthesis. FINDINGS: BREAST COMPOSITION: There are scattered areas of fibroglandular density. BILATERAL BREASTS: No significant masses, suspicious calcifications or other abnormalities are seen in either breast. MM/MM tomosynthesis screening BI IMPRESSION: BILATERAL BREASTS: Negative, no mammographic evidence of malignancy. Normal interval follow-up is recommended in 12 months. ASSESSMENT: BI-RADS: Category 1: Negative RECOMMENDATION: Routine annual mammography screening. FOLLOW-UP: 1 year F/U This examination should not preclude the clinical evaluation of a suspicious palpable abnormality. This patient's information was entered into a reminder system with a target due date for their next mammogram. Electronically signed by: Kevin Akers MD 02/28/2025 08:55 PM [facility] Dictated By: Kevin Akers MD Signed By: <Electronically signed by Kevin Akers MD in OV> 02/28/252054 DD/ 1640 TD/TT: 02/28/25 1645 Patient Access Registrar: Marian Crook MD IMG BI PROCEDURES Edited Result - Final documented in this encounter Visit Diagnoses Not on filedocumented in this encounter Additional Health Concerns Assessment Noted Time PHQ-9 Depression Total Score: 13 10/12/2 025 9:26 AM EDT documented as of this encounter Care Teams Story Teller Relationship Specialty Start Date End Date Marian Crook MD [address] [place] [address] PCP - General Internal Medicine 10/25/24 documented as of this encounter
--- OUTSIDE RECORDS SUMMARY | 2025-03-01 02:18 | XMS_ITS | Encounter Summary ---
Author Organization [employer] Address [address] [facility] 7 [place] [address] Care Team Providers Care Casey Saw Operator Name Role Phone Marian Crook MD Primary Care Provider + Reason for Visit * Reason Comments Med Refill Encounter Details Date Type Department Care Team (Late st Contact Info) Description 11/18/2024 Refill [facility] MEDICINE [address] [place] [address] Annette Mitchell, INTERCEPTOR OPERATOR [address] [place] [address] Dizziness Social History Tobacco Use Types Packs/Day [...] documented as of this encounter Care Teams Casey Saw Operator Relationship Specialty Start Date End Date Marian Crook MD [address] [place] [address] PCP - General Internal Medicine 10/25/24 documented as of this encounter
--- OUTSIDE RECORDS SUMMARY | 2025-03-01 02:18 | XMS_ITS | Encounter Summary ---
Author Organization [employer] Address [address] [place] [address] 7 [place] [address] Care Team Providers Care Quill Buncher And Sorter Name Role Phone Miladys Alisha CALCINE FURNACE TENDER Primary Care Provider [phone] Marian Crook MD Primary Care Provider + Marian Crook MD Primary Care Provider + Encounter Details Date Type Department Care Team (Late st Contact Info) Description 04/03/2023 Abstract [facility] MEDICINE [address] [place] [address] [place] Alisha [facility] [address] [place], [place] [phone] Social History Tobacco Use Types Packs/Day Years [...] documented as of this encounter Care Teams Quill Buncher And Sorter Relationship Specialty Start Date End Date Alisha Hook FNP [address] [place] [address] PCP - General Family Medicine 11/14/21 09/11/23 Marian Crook MD [address] [place] [address] PCP - General Internal Medicine 09/12/23 10/24/24 Marian Crook MD [address] [place] [address] PCP - General Internal Medicine 10/25/24 documented as of this encounter
--- OUTSIDE RECORDS SUMMARY | 2025-03-01 02:18 | XMS_ITS | Encounter Summary ---
Author Organization [employer] Address [address] [facility] 7 [place] [address] Care Team Providers Care Senior Oracle Developer Name Role Phone Marian Crook MD Primary Care Provider + Marian Crook MD Primary Care Provider + Reason for Visit * Reason Comments Med Refill Encounter Details Date Type Department Care Team ([facility] st Contact Info) Description 06/05/[address] [facility] MEDICINE [address] [place] [address] Marian Crook MD [address] [place], [place] [phone] Social History Tobacco Use Types Packs/Day Years [...] as of this encounter Care Teams Senior Oracle Developer Relationship Specialty Start Date End Date Marian Crook MD [address] [place] [address] PCP - General Internal Medicine 09/12/23 10/24/24 Marian Crook MD [address] [place] [address] PCP - General Internal Medicine 10/25/24 documented as of this encounter
--- OUTSIDE RECORDS SUMMARY | 2025-03-01 02:18 | XMS_ITS | Encounter Summary ---
Author Organization [employer] Address [address] [place] [address] 7 [place] [address] Care Team Providers Care Mechanical Pencils Assembler Name Role Phone Marian Crook MD Primary Care Provider + Marian Crook MD Primary Care Provider + Reason for Visit * Reason Onset Date Comments Med Refill 03/25/2024 Encounter Details Date Type Department Care Team (Late st Contact Info) Description 03/25/2024 Refill [facility] MEDICINE [address] [place], [place] [phone] Claritza Leonard DO [address] [place], [place] [phone] Social History Tobacco Use Types Packs/Day Years [...] documented as of this encounter Care Teams Mechanical Pencils Assembler Relationship Specialty Start Date End Date Marian Crook MD [address] [place] [address] PCP - General Internal Medicine 09/12/23 10/24/24 Marian Crook MD [address] [place] [address] PCP - General Internal Medicine 10/25/24 documented as of this encounter
--- OUTSIDE RECORDS SUMMARY | 2025-03-01 02:18 | XMS_ITS | Clinical Summary ---
Author Organization [employer] Address [address] [place] [address] Care Team Providers Care Monumental Stonemason Name Role Phone Marian Crook MD Primary Care Provider + Allergies No known active allergies Medications Vaginal Lubricant (Replens) gelIndications:V aginal dryness Insert 2 g into the vagina if needed (vaginal dryness). 35 g 1 3 Active Omeprazole 20 MG tablet delayed-releaseI ndications:Pain of right hip Take 20 mg by mouth in the morning for 14 days. 14 tablet 3 Active nitroglycerin (Rectiv) 0.4 % (w/w) rectal ointmentIndicati ons:Anal fissure Insert 1 inch (1 Application.) into the rectum every 12 (twelve) hours. 30 g 4 Active cetirizine (ZyrTEC) 10 MG tablet TAKE 1 TABLET BY MOUTH EVERY DAY 90 tablet 5 Active acetaminophen (Tylenol 8 Hour) 650 MG ER tablet TAKE 1 TABLET BY MOUTH EVERY 8 HOURS IF NEEDED FOR MILD PAIN. DO NOT CRUSH, CHEW, OR SPLIT. 50 tablet 2 5 Active Blood Pressure kit Use TID at home 1 kit 5 Active Diclofenac Sodium 1 % gelIndications:C hronic midline low back pain, unspecified whether sciatica present APPLY 2 GRAMS TOPICALLY IN THE MORNING, AT NOON, IN THE EVENING AND AT BEDTIME NEEDED FOR PAIN 100 g 2 5 Active midodrine (Proamatine) 2.5 MG tablet Take 1 tablet (2.5 mg) by mouth 3 times daily. 270 tablet 1 5 Active albuterol 108 (90 Base) MCG/ACT inhalerIndicatio ns:Moderate persistent asthma without complication Inhale 2 puffs every 6 (six) hours if needed for shortness of breath or wheezing. 18 g 3 5 Active lidocaine (Lidoderm) 5 % patch Apply 1 patch topically Once per day. Remove & discard patch within 12 hours or as directed by MD. 30 patch 2 5 Active fluticasone (Flonase) 50 MCG/ACT nasal spray Administer 1 spray into each nostril Once per day. 16 g 2 5 Active meloxicam (Mobic) 7.5 MG tablet TAKE 1 TABLET BY MOUTH EVERY DAY 30 tablet 5 Active montelukast (Singulair) 10 MG tablet TAKE 1 TABLET BY MOUTH EVERY MORNING 90 tablet 1 5 Active meclizine (Antivert) 25 MG tabletIndication s:Dizziness Take 0.5 tablets (12.5 mg) by mouth if needed in the morning, at noon, and at bedtime for dizziness. 30 tablet 3 5 02/18/20 25 clotrimazole-bet amethasone (Lotrisone) cream Apply topically 2 times daily for 28 days. 30 g 1 5 02/09/20 25 Active Problems Problem Noted Date Diagnosed Date [...] medication for now and to follow-up with emissions testing technician. Follow-up with me in 3 months Will need additional cardiac evaluation if renal insufficiency workup is negative Assessment & Plan (10/12/2024 2:20 PM EDT): Unclear if related to adrenal insufficiency, POTS,? Diabetes insipidus or other, we will refer to emissions testing technician. Started on low-dose midodrine, will slowly titrate [...] related to patient's menorrhagia(she is followed by [facility]) + significant diuresis. Patient will have increase [...] for this letter, she has appt with [facility] next week. I told her to reach out to complex commercial litigation paralegal to help her write a letter so that housing give her some more time to get the letter from MH provider. She will res tart Effexor for anxiety and fu with me in 6m Encounters Date Type Department Care Team Description 02/28/2025 Orders Only [facility] MEDICINE [address] [place] [phone] Marian Crook MD 02/08/2025 6:20 PM EST Office Visit [facility] WALK-IN [facility]ENTER [address], [place] [phone] Adriana Brannon MD BRBPR (bright red blood per rectum) (Primary Dx) 02/08/2025 Travel 01/21/2025 Orders Only GENERIC EXTERNAL DATA DEPARTMENT Provider, Generic External Data 01/20/2025 Orders Only GENERIC EXTERNAL DATA DEPARTMENT Provider, Generic External Data 01/20/2025 Telephone [facility] MEDICINE [address] [place] [address] Marian Crook MD Nurse Triage 01/20/2025 Refill [facility] MEDICINE [address], [place] [phone] Marian Crook MD 01/19/2025 Refill [facility] MEDICINE [address], [place] [phone] Marian Crook MD 01/07/2025 9:00 AM EDT Office Visit [facility] MEDICINE [address] [place] [address] Marian Crook MD Orthostatic hypotension (Primary Dx); Vertigo; Class 1 obesity due to excess calories with serious comorbidity and body mass index (BMI) of 32.0 to 32.9 in adult; Moderate persistent asthma without complication; Tinea corporis; Chronic low back pain without sciatica, unspecified back pain laterality; Dietary counseling; Exercise counseling 01/07/2025 Travel 01/06/2025 Telephone [facility] MEDICINE [address] [place] [address] Marian Crook MD CHART PREP 01/03/2025 9:00 AM EDT Office Visit [facility] OPTOMETRY [address] [place] [address] Ramon, Annette, OD Meibomian gland disease of both eyes, unspecified eyelid (Primary Dx); Dermatochalasis of both upper eyelids; Presbyopia 01/03/2025 Travel 12/29/2024 Patient Outreach [facility] MEDICINE [address] [place] [address] Marian Crook MD Pre-visit Planning ([facility] screening completed on 06/23/2024) 12/13/2024 Refill [facility] MEDICINE [address] [place] [address] Marian Crook MD from Last 3 Months [...] 2024 , 12/20/2018, 05/15/2017, Additional history exists FOBT 02/01/2025 02/02/2024 RSV Patients and Patients Aged 60 years or older (1 - Risk 50-74 years 1-dose series) 2025 Zoster Vaccines (1 of 2) 2025 Depression Monitoring 04/14/2025 10/12/2024, 025 SDOH Screening 06/23/2025 06/23/2024 Disability Screening 11/04/2025 11/04/2024 Alcohol/Substance Use Screening 01/07/2026 01/07/2025 Tobacco Screening 02/08/2026 02/08/2025 Mammogram 02/28/2026 02/28/2025, 11/22, 10/05/2018, Additional history exists Lipid Panel 10/17/2026 10/17/2021 Colorectal Cancer Screening [...] TOMOSYNTHESIS BILATERAL Routine 02/28/2025 4:40 PM EST POCT HEMOGLOBIN Routine 02/08/2025 6:29 PM EST [...] 9:15 AM EST Screening for colorectal cancer LIPID PANEL, STANDARD Routine 10/17/2021 2:37 PM EDT from Last 3 Months or Most Recently Relevant to Health Maintenance Results * BI Mammogram Screening Tomosynthesis Bilateral (02/28/2025 4:40 PM EST) Anatomical Region Laterality Modality Breast Bilateral Mammography 02/28/2025 4:40 PM EST Narrative 02/28/2025 8:58 PM EST [facility] [address] [place], [place] [address] Mammography Report Signed Patient: Corina Nielsen MR#: [id number] : 1975 Acct:[id number] Age/Sex: 50 / F ADM Date: 02/28/25 Loc: HO.MAMMO Attending Dr: Marian Crook MD Ordering Physician: Marian Crook MD Results: 1Ne gative Date of Service: 02/28/25 Follow Up: 1 Year From Orig ina Mammogram Procedure(s): MM tomosynthesis screening BI Accession Number(s): [id number] cc: Marian Crook MD Reason For Exam: [...] OV> 02/28/252054 DD/ 1640 TD/TT: 02/28/25 1645 Supervisor Housecleaner: Procedure Note Donotuseinterpreter, Image - 02/28/2025 [facility] [address] [place] [address] Mammography Report Signed Patient: Baljit NielsenR#: [id number] : 1975Acct:[id number] Age/Sex: 50 / FADM Date: 02/28/25 Loc: HO.MAMMO Attending Dr: Marian Crook MD Ordering Physician: Marian Crook MDResults: 1Ne gative Date of Service: 02/28/25Follow Up: 1 Year From Orig inal Mammogram Procedure(s): MM tomosynthesis screening BI Accession Number(s): [id number] cc: Marian Crook MD Reason For Exam: [...] by: Kevin Akers MD 02/28/2025 08:55 PM [facility] Dictated By: Kevin Akers MD Signed By: <Electronically signed by Kevin Akers MD in OV> 02/28/252054 DD/ 1640 TD/TT: 02/28/25 164 Supervisor Housecleaner: Marian Crook MD IMG BI PROCEDURES Edited Result - Final * POCT Hemoglobin (02/08/2025 6:29 PM EST) Hemoglobin 14.4 12.0 - 15.0 QC Media Lot # [id number] Lot# Expiration Date Blood 02/08/2025 6:29 PM EST Adriana Brannon MD POINT OF CARE TEST ENTER/E DIT ORDERABLES Final Result * Cortisol Random (01/21/2025 8:10 AM EDT) Cortisol Random 8.2 ug/dL [facility] Comment:Reference Range*: Be fore 10 am 6.2-19.4 ug/dL After 5 pm 2.3-11.9 ug/dL*Please interpret above results accordingly.This test was performed using the [employer] chemiluminescentmethod. Values obtained from different assay methods cannotbe used interchangeably.Patients receiving fludrocortisone, prednisolone orprednisone may show artificially elevated cortisol valuesdue to cross-reactivity. 01/21/2025 8:10 AM EDT 01/21/2025 8:10 AM EDT us Generic External Data Provider LAB BLOOD ORDERAB LES Final Result [facility] [address], [place] [phone] * DHEA Sulfate (01/21/2025 8:10 AM EDT) DHEA Sulfate 53 15 - 205 mcg/dL [facility] Comment:THIS TEST WAS PERFOR MED AT:[employer] [place] [id number] OLIVAS MD 01/21/2025 8:10 AM EDT 01/21/2025 8:10 AM EDT us Generic External Data Provider LAB BLOOD ORDERAB LES Final Result Performing Organization Address [facility]/ZIP Co de Phone Number [facility] [address] [place] [phone] * ACTH, Plasma (01/21/2025 8:10 AM EDT) ACTH, Plasma 17 6 - 50 pg/mL [facility] Comment:Reference range appl ies only to specimens collectedbetween 7am-10am.THIS TEST WAS PERFORMED AT:[employer] [id number] [place] [phone] ZARATE MD,PHD 01/21/2025 8:10 AM EDT 01/21/2025 8:10 AM EDT Generic External Data Provider LAB BLOOD ORDERAB LES Final Result Performing Organization Address [facility] Co de Phone Number [facility] [address] [place] [phone] * (ABNORMAL) Basic Metabolic Panel (01/21/2025 8:10 AM EDT) Sodium 140 135 - 145 mmol/L [facility] Potassium 3.8 3.3 - 5.1 mmol/L [facility] Chloride 109(H) 96 - 108 mmol/L [facility] Carbon Dioxide 26 22 - 29 mmol/L [facility] Anion Gap 9(L) 12 - 20 [facility] Urea Nitrogen (BUN) 16 9 - 16 mg/dL [facility] Creatinine, Serum 0.76 0.5 - 1.4 mg/dL [facility] Estimated Glomerular Filt Rate >60 [facility] Comment:Chronic Kidney Disea se: Estimated GFR < 60 mL/min/1.61o1Ikncav Kidney Disease: Estimated GFR < 15 mL/min/1.73m2 Glucose 90 60 - 115 mg/dL [facility] Calcium 9.0 8.4 - 10.2 mg/dL [facility] 01/21/2025 8:10 AM EDT 01/21/2025 8:10 AM EDT us Generic External Data Provider LAB BLOOD ORDERAB LES Final Result Performing Organization Address City/State/[facility] Co de Phone Number [facility] [address] [place], [place] [phone] * US VENOUS DUPLEX LE RT (01/20/2025 6:35 PM EDT) Anatomical Region Laterality Modality Abdomen Ultrasound 01/20/2025 6:35 PM EDT Narrative 01/20/2025 6:35 PM EDT [place] [address] Ultrasound Report Signed Patient: Corina Nielsen MR#: [id number] : 1975 Acct:[id number] Age/Sex: 49 / F ADM Date: 01/20/25 Loc: .ED Attending Dr: Ordering Physician: Devin Shah Date of Service: 01/20/25 Procedure(s): US venous duplex LE RT Accession Number(s): [id number] cc: Devin Shah; Marian Crook MD Reason [...] in OV> 01/20/251834 DD/ 34 TD/TT: 01/20/251834 Supervisor Housecleaner: Procedure Note Donotuseinterpreter, Image - 01/20/[address] [address] Ultrasound Report Signed Patient: Baljit NielsenR#: [id number] : 1975Acct:[id number] Age/Sex: 49 / FADM Date: 01/20/25 Loc: HO.ED Attending Dr: Ordering Physician: Devin Shah Date of Service: 01/20/25 Procedure(s): US venous duplex LE RT Accession Number(s): [id number] cc: Devin Shah; Marian Crook MD Reason [...] in OV> 01/20/251834 DD/ 34 TD/TT: 01/20/251834 Supervisor Housecleaner: us [facility] External Provider IMG US PROCEDURES Final Result * XR Foot 3+ Views Right (01/20/2025 3:20 PM EDT) Anatomical Region Laterality Modality Lower Extremities, Foot Right Radiogra phic Imaging 01/20/2025 3:20 PM EDT Narrative 01/20/2025 3:41 PM EDT [address] [address] XRay Report Signed Patient: Corina Nielsen MR#: [id number] : 1975 Acct:[id number] Age/Sex: 49 / F ADM Date: 01/20/25 Loc: HO.ED Attending Dr: Ordering Physician: Devin Shah Date of Service: 01/20/25 Procedure(s): XR foot RT min 3V Accession Number(s): [id number] cc: Devin Shah; Marian Crook MD Reason [...] 01/20/25 1539 DD/ 1520 TD/TT: 01/20/25 1530 Supervisor Housecleaner: MARILYN Procedure Note Donotuseinterpreter, Image - 01/20/[address] [address] XRay Report Signed Patient: Yarelis Nielsen#: [id number] : 1975Acct:[id number] Age/Sex: 49 / FADM Date: 01/20/25 Loc: HO.ED Attending Dr: Ordering Physician: Devin Shah Date of Service: 01/20/25 Procedure(s): XR foot RT min 3V Accession Number(s): [id number] cc: Devin Shah; Marian Crook MD Reason [...] OV> 01/20/25 1539 DD/ 1520 TD/TT: 01/20/251529 Supervisor Housecleaner: MARILYN us [facility] External Provider IMG XR PROCEDURES Final Result * XR Ankle 3+ Views Right (01/20/2025 3:20 PM EDT) Anatomical Region Laterality Modality Lower Extremities, Ankle Right Radiogr aphic Imaging 01/20/2025 3:20 PM EDT Narrative 01/20/2025 3:42 PM EDT [address] [address] XRay Report Signed Patient: Corina Nielsen MR#: [id number] : 1975 Acct:[id number] Age/Sex: 49 / F ADM Date: 01/20/25 Loc: HO.ED Attending Dr: Ordering Physician: Devin Shah Date of Service: 01/20/25 Procedure(s): XR ankle RT min 3V Accession Number(s): [id number] cc: Devin Shah; Marian Crook MD Reason [...] OV> 01/20/25 1539 DD/ 1520 TD/TT: 01/20/251529 Supervisor Housecleaner: SUJ Procedure Note Donotuseinterpreter, Image - 01/20/2025 [place] [address] [place] [address] XRay Report Signed Patient: Yarelis Nielsen#: [id number] : 1975Acct:[id number] Age/Sex: 49 / FADM Date: 01/20/25 Loc: HO.ED Attending Dr: Ordering Physician: Devin Shah Date of Service: 01/20/25 Procedure(s): XR ankle RT min 3V Accession Number(s): [id number] cc: Devin Shah; Marian Crook MD Reason [...] 01/20/25 1539 DD/ 1520 TD/TT: 01/20/25 1530 Supervisor Housecleaner: MARILYN [facility] External Provider IMG XR PROCEDURES Final Result * CBC auto differential (01/20/2025 3:19 PM EDT) White Blood Count 7.1 4.8 - 10.8 X10*3/uL [facility] Red Blood Count 4.23 4.20 - 5.50 X10*6/uL [facility] Hemoglobin 13.0 12.0 - 16.0 g/dl [facility] Hematocrit 39.5 37.0 - 47.0 % [facility] Mean Corpuscular Volume 93.4 80.0 - 98.0 fL [facility] Mean Corpuscular Hemoglobin 30.7 27.0 - 33.0 pg [facility] Mean Corpuscular HGB Conc 32.9 31.0 - 35.0 g/dl [facility] Red Cell Distribution Width 12.5 11.0 - 16.0 % [facility] Platelet Count 247 160 - 400 X10*3/uL [facility] Mean Platelet Volume 10.6 9.4 - 12.3 fL [facility] Neutrophils Percent Auto 63.7 45 - 73 % [facility] Imm Gran Pct Auto 0.3 0.0 - 0.4 % [facility] Lymphocytes Percent Auto 25.2 20 - 40 % [facility] Monocytes Percent Auto 6.3 2 - 11 % [facility] Eosinophils Percent Auto 3.9 0 - 4 % [facility] Basophils Percent Auto 0.6 0 - 2 % [facility] NRBC Pct Auto 0.0 0.0 - 0.2 /100WBC [facility] Neutrophils Absolute Auto 4.5 2.0 - 8.3 x10*3/uL [facility] Imm Gran Abs Auto 0.02 0.00 - 0.03 X10*3/uL [facility] Lymphocytes Absolute Auto 1.8 1.2 - 4.9 X10*3/uL [facility] Monocytes Absolute Auto 0.5 0.1 - 1.2 X10*3/uL [facility] Eosinophils Absolute Auto 0.3 0.0 - 0.4 X10*3/uL [facility] Basophils Absolute Auto 0.0 0.0 - 0.2 X10*3/uL [facility] NRBC Abs Auto 0.000 0.0 - 0.012 X10*3/uL [facility] 01/20/2025 3:19 PM EDT 01/20/2025 3:22 PM EDT us Generic External Data Provider LAB BLOOD ORDERAB LES Final Result [facility] [address] [place] [phone] * Partial Thromboplastin Time, Activated (APTT) (01/20/2025 3:19 PM EDT) Pathologist [facility] [place] Partial Thromboplastin Time 30.6 26.7 - 34.1 SEC [facility] 01/20/2025 3:19 PM EDT 01/20/2025 3:22 PM EDT Generic External Data Provider LAB BLOOD ORDERAB LES Final Result Performing Organization Address [facility]/ZIP Co de Phone Number [facility] [address] [place] [phone] * Prothrombin Time-INR (01/20/2025 3:19 PM EDT) [facility] Prothrombin Time 11.9 10.9 - 12.4 SEC [facility] INTERNATIONAL NORM RATIO 1.0 0.9 - 1.1 [facility] Comment:INTERNATIONAL NORMAL IZED RATIO (INR) [...] 3:19 PM EDT 01/20/2025 3:22 PM EDT [employer] External Data Provider LAB BLOOD ORDERAB LES Final Result Performing Organization Address [facility]/ZIP Co de Phone Number [facility] [address] [place] [phone] * (ABNORMAL) Comprehensive Metabolic Panel (01/20/2025 3:19 PM EDT) Pathologist [facility] Sodium 141 135 - 145 mmol/L [facility] Potassium 4.1 3.3 - 5.1 mmol/L [facility] Chloride 110(H) 96 - 108 mmol/L [facility] Carbon Dioxide 27 22 - 29 mmol/L [facility] Anion Gap 8(L) 12 - 20 [facility] Urea Nitrogen (BUN) 16 9 - 16 mg/dL [facility] Creatinine, Serum 0.91 0.5 - 1.4 mg/dL [facility] Creatinine Clr Calc Pharmacy 74.5 [facility] Comment:Provided height and weight: 160.02 cm,79.379 kg.eGFR (calculated from the MDRD study equation) and eCrCl(calculated from the Cockcroft-Gault equation) are based ondifferent parameters and may not yield comparable results.If eCrCl result is absurd, please check patient'sheight/weight. Estimated Glomerular Filt Rate >60 [facility] Comment:Chronic Kidney Disea se: Estimated GFR < 60 mL/min/1.17d6Mptfsj Kidney Disease: Estimated GFR < 15 mL/min/1.73m2 Glucose 91 60 - 115 mg/dL [facility] Calcium 8.9 8.4 - 10.2 mg/dL [facility] Bilirubin, Total 0.2 0.0 - 1.0 mg/dL [facility] Aspartate Amino Transferase 25 5 - 31 U/L [facility] Alanine Aminotransferase 18 0 - 31 U/L [facility] Total Protein 7.2 6.5 - 8.0 g/dL [facility] Albumin Level 4.3 3.5 - 5.0 g/dL [facility] Alkaline Phosphatase 69 39 - 117 U/L [facility] 01/20/2025 3:19 PM EDT 01/20/2025 3:22 PM EDT us Generic External Data Provider LAB BLOOD ORDERAB LES Final Result [facility] [address] [place] [phone] * HPV DNA, Low/High Risk (05/05/2024 10:22 AM EST) HPV High Risk Negative Negative [facility] HPV Genotype 16 Negative Negative [facility] HPV Genotype 18 Negative Negative [facility] Comment:HPV testing performe d at [facility] (CLIA#[id number]), [address] [place] [phone].Testing for HPV was performed using the [employer]ALI 6800system. The presence of HPV in [...] ORDERAB LES Final Result Performing Organization Address City/State/[facility] Co de Phone Number [facility] [address] [place] [phone] * Pap Smear (05/05/2024 10:22 AM EST) 05/05/2024 10:2 2 AM EST 05/06/2024 6:10 AM EST Narrative [facility] - 05/11/2024 9:16 AM EST ----- ------- Name: Corina Nielsen Age/Sex: 49/F : 1975 Unit#: [id number] Attend Dr: Pj Posadas MD Re05/05/24 Status: DEP REF Location: [facility] Disch: ----- ------- SPEC : [id number] RECD: 05/06/24 STATUS: YESSI CARDENAS NUM: [id number] LAURA: 05/05/24-[address] [facility] [address]: Pj Posadas MD ENTERED: 05/06/24 SP [...] Received ThinPrep-Cervical Copies To: Marian Crook MD [address] [phone] Pj Posadas MD [facility] [address] [place] [address] Drive [address] [place] [address] ----- ------- Signed (signature on file) SCARLET Hernandez (ASCP) 05/11/24 0916 ----- ------- END OF REPORT Generic External Data Provider LAB CYTOLOGY ORDE RABLES Final Result Performing Organization Address [facility]/ZIP Co de Phone Number [facility] [address] [place] [phone] * Hepatitis C Ab (03/27/2024 10:19 AM EST) Hepatitis C Antibody Nonreactive Nonreactive [facility] Comment:Antibodies to HCV no t detected; does not exclude early acuteHCV infection. 03/27/2024 10:1 9 AM EST 03/27/2024 10:19 AM EST Generic External Data Provider LAB BLOOD ORDERAB LES Final Result Performing Organization Address [facility] Co de Phone Number [facility] [address] [place] [phone] * HIV-1/2 Antigen and Antibodies, Fourth Generation, with Reflexes (03/27/2024 10:19 AM EST) HIV AB/AG Nonreactive Nonreactive [facility] Comment:HIV-1 p24 Ag and/or HIV-1/HIV-2 Ab not detected.A test result that is nonreactive does not exclude thepossibility of exposure to or infection with HIV-1 and/orHIV-2. Nonreactive results in this assay for individualswith prior exposure to HIV-1 and/or HIV-2 may be due toantigen and antibody levels that are below the limit ofdetection of this assay.The [employer] HIV Ag/Ab Combo assay result andsupplemental assay results should be interpreted inconjunction with the patient's clinical presentation,history and other laboratory results. If the results areinconsistent with clinical evidence, additional testing issuggested to confirm the result. 03/27/2024 10:1 9 AM EST 03/27/2024 10:19 AM EST us Generic External Data Provider LAB BLOOD ORDERAB LES Final Result [facility] [address] [place] [phone] * Cologuard?? colon cancer screening (02/02/2024 9:15 AM EST) Cologuard Result Negative Negative 02/08/20 2:05 AM EST [email or web address] (CLIA #:[id number]) Comment: NEGATIVE TEST RESULT. A negative Cologuard [...] Gonzalez et al, N Engl J Med 2014;370(14):0791-7451) The normal value (reference range) for this assay is negative. COLOGUARD RE-SCREENING RECOMMENDATION: Periodic colorectal cancer screening is an important part of preventive healthcare for asymptomatic individuals at average risk for colorectal cancer. Following a negative Cologuard result, the [place] Cancer Society and U.S. Multi-Society Task Force screening guidelines recommend a Cologuard re-screening interval of 3 years. References: [place] [employer] Society Guideline for Colorectal Cancer Screening: https://www.cancer.org/cancer/vophs-fmuzqp-ruionn/zzggowgnb-izdtucntv-yllonzt/ac s-rec ommendations.html.; Hector ABERNATHY, Julio Cesar CR, Janet TroncosoK, Colorectal Cancer Screening: Recommendations for Physicians and Patients from the U.S. Multi-Society Task Force on Colorectal Cancer Screening , Am J Gastroenterology 2017; 112:1283-8383. TEST DESCRIPTION: Composite algorithmic analysis of stool [...] (Isadora Rodriguez al, N Engl J Med 2014;370(14):4645-1797.) Cologuard may produce a false negative or false positive result (no colorectal cancer or precancerous polyp present at colonoscopy follow up). A negative Cologuard test result does not guarantee the absence of CRC or advanced adenoma (pre-cancer). The current Cologuard screening interval is every 3 years. ([employer] and [place] Multi-Society Task Force). Cologuard performance data in a 10,000 patient pivotal study using colonoscopy as the reference method can be accessed at the following location: www.[email or web address].Springbuk/results. Additional description of the Cologuard test process, warnings and precautions can be found at www.Casetextrd.com. Stool specimen (specimen) Rectal contents / Unknown 02/02/2024 9:15 AM EST 02/03/2024 10:52 AM EST us Marian Crook MD LAB MOLECULAR DIAGNOSTIC S ORDERABLES Final Result [facility] (CLIA #:[id number]) [place] [address], * LIPID PANEL, STANDARD (10/17/2021 2:37 PM EDT) Chol/HDLC Ratio 2.9 <5.0 (calc) [facility] Cholesterol, Total 154 <200 mg/dL [facility] HDL Cholesterol 54 > OR = 50 mg/dL [facility] LDL Cholesterol 86 mg/dL (calc) [facility] Comment: Reference range: <100 Desirable range <100 mg/dL for primary prevention; <70 mg/dL for patients with CHD or diabetic patients with > or = 2 CHD risk factors. LDL-C is now calculated using the Lanre calculation, which is a validated novel method providing better accuracy than the Friedewald equation in the estimation of LDL-C. Camahco SS et al. TAYO. 2013;310(19): 3446-0126 (http://education.Odnoklassniki.com/faq/RHO744) Non-HDL Cholesterol 100 <130 mg/dL (calc) [facility] Comment: For patients with diabetes plus 1 major ASCVD risk factor, treating to a non-HDL-C goal of <100 mg/dL (LDL-C of <70 mg/dL) is considered a therapeutic option. Triglycerides 56 <150 mg/dL [facility] 10/17/2021 2:37 PM EDT us Irma Arteaga NP LAB BLOOD ORDERABLES Final Resu lt [facility] [address] from Last 3 Months or Most Recently Relevant to Health Maintenance Insurance [facility] 3 Care Teams Monumental Stonemason Relationship Specialty Start Date End Date Marian Crook MD [address] [place] [id number] PCP - General Internal Medicine 10/25/24
--- OUTSIDE RECORDS SUMMARY | 2025-03-01 02:18 | XMS_ITS | Encounter Summary ---
Author Organization [employer] Address [address] [place] [address] [address] [place] [address] Care Team Providers Care Fretted String Instrument Repairer Name Role Phone Marian Crook MD Primary Care Provider + Marian Crook MD Primary Care Provider + Reason for Visit * Reason Comments Med Refill Encounter Details Date Type Department Care Team (Late st Contact Info) Description 11/27/2023 Refill [facility] [address] [place] [address] Marian Crook MD [address] [place], [place] [phone] Social History Tobacco Use Types Packs/Day Years [...] documented as of this encounter Care Teams Fretted String Instrument Repairer Relationship Specialty Start Date End Date Marian Crook MD [address] [place] [address] PCP - General Internal Medicine 09/12/23 10/24/24 Marian Crook MD [address] [place] [address] PCP - General Internal Medicine 10/25/24 documented as of this encounter
--- OUTSIDE RECORDS SUMMARY | 2025-03-01 02:18 | XMS_ITS | Encounter Summary ---
Author Organization [employer] Address [address] [facility] 7 [place] [address] Care Team Providers Care Permastone Applicator Name Role Phone Marian Crook MD Primary Care Provider + Marian Crook MD Primary Care Provider + Reason for Visit * Reason Onset Date Comments FYI 08/03/2024 Encounter Details Date Type Department Care Team ([facility] st Contact Info) Description 08/03/2024 Telephone [facility] [address] [place], [place] [phone] Marian Crook MD [address] [place], [place] [phone] FYI Social History Tobacco Use Types Packs/Day [...] an upcoming visit with : [facility] 09/28 1pm . Should be at registration by 12:[address] [place] [address] documented in this encounter Plan of Treatment Not on file documented as of this encounter Visit Diagnoses Not on filedocumented in this encounter Additional Health Concerns Assessment Noted Time PHQ-9 Depression Total Score: 22 024 2:02 PM EDT documented as of this encounter Care Teams Permastone Applicator Relationship Specialty Start Date End Date Marian Crook MD [address] [place] [address] PCP - General Internal Medicine 09/12/23 10/24/24 Marian Crook MD [address] [place] [address] PCP - General Internal Medicine 10/25/24 documented as of this encounter
--- OUTSIDE RECORDS SUMMARY | 2025-03-01 02:18 | XMS_ITS | Encounter Summary ---
Author Organization [employer] Address [address] [place] [address] 7 [place] [address] Care Team Providers Care Saturator Tender Name Role Phone Alisha Hook Primary Care Provider [phone] Marian Crook MD Primary Care Provider + Marian Crook MD Primary Care Provider + Reason for Visit * Reason Onset Date Comments Nurse Triage 11/18/2022 Encounter Details Date Type Department Care Team (Late st Contact Info) Description 11/18/2022 Telephone [facility] [address] [place], [place] [phone] [place] [facility] [address] [place], [place] [phone] Nurse Triage Social History Tobacco Use Types [...] documented as of this encounter Care Teams Saturator Tender Relationship Specialty Start Date End Date [facility] [address] [place] [address] PCP - General Family Medicine 11/14/21 09/11/23 Marian Crook MD [address] [place] [address] PCP - General Internal Medicine 09/12/23 10/24/24 Marian Crook MD [address] [place] [address] PCP - General Internal Medicine 10/25/24 documented as of this encounter
--- OUTSIDE RECORDS SUMMARY | 2025-03-01 02:18 | XMS_ITS | Encounter Summary ---
Author Organization [employer] Address [address] [facility] 7 [place] [address] Care Team Providers Care Epic Interface Analyst Name Role Phone Marian Crook MD Primary Care Provider + Marian Crook MD Primary Care Provider + Reason for Visit * Reason Onset Date Comments Med Refill 06/02/2024 Encounter Details Date Type Department Care Team ([facility] st Contact Info) Description 06/02/2024 Telephone [facility] [address] [place], [place] [phone] Marian Crook MD [address] [place], [place] [phone] Med Refill Social History Tobacco Use Types [...] documented as of this encounter Care Teams Epic Interface Analyst Relationship Specialty Start Date End Date Marian Crook MD [address] [place] [address] PCP - General Internal Medicine 09/12/23 10/24/24 Marian Crook MD [address] [place] [address] PCP - General Internal Medicine 10/25/24 documented as of this encounter
--- OUTSIDE RECORDS SUMMARY | 2025-03-01 02:18 | XMS_ITS | Encounter Summary ---
Author Organization [employer] Address [address] [place] [address] 7 [place] [address] Care Team Providers Care Magneto Repairer Name Role Phone Marian Crook MD Primary Care Provider + Marian Crook MD Primary Care Provider + Reason for Visit * Reason Onset Date Comments Med Refill 03/25/2024 Encounter Details Date Type Department Care Team (Late st Contact Info) Description 03/25/2024 Refill [facility] [address] [place], [place] [phone] Claritza Leonard DO [address] [place], [place] [phone] Social History Tobacco Use Types Packs/Day Years [...] documented as of this encounter Care Teams Magneto Repairer Relationship Specialty Start Date End Date Marian Crook MD [address] [place] [address] PCP - General Internal Medicine 09/12/23 10/24/24 Marian Crook MD [address] [place] [address] PCP - General Internal Medicine 10/25/24 documented as of this encounter
--- OUTSIDE RECORDS SUMMARY | 2025-03-01 02:18 | XMS_ITS | Encounter Summary ---
Author Organization [employer] Address [address] [place] [address] [address] [place] [address] Care Team Providers Care Hunting Sales Leader Name Role Phone Marian Crook MD Primary Care Provider + Marian Crook MD Primary Care Provider + Reason for Visit * Reason Onset Date Comments Med Refill 03/25/2024 Encounter Details Date Type Department Care Team (Late st Contact Info) Description 03/25/2024 Refill [facility] [address] [place], [place] [phone] Marian Crook MD [address] [place], [place] [phone] Social History Tobacco Use Types Packs/Day Years [...] documented as of this encounter Care Teams Hunting Sales Leader Relationship Specialty Start Date End Date Marian Crook MD [address] [place] [address] PCP - General Internal Medicine 09/12/23 10/24/24 Marian Crook MD [address] [place] [address] PCP - General Internal Medicine 10/25/24 documented as of this encounter
== END 2025-02-28 16:35 | disposition home or self-care (01) ==
LOC: HO.MAMMO 16:34
PROVIDERS: PCP Internal Medicine; Visit Provider Internal Medicine
DX: Z12.31 Encounter for screening mammogram for malignant neoplasm of breast (principal)
CPT/HCPCS: 77063; 77067